=== PATIENT | female | born 1945 | race Caucasian/White ===

== ENCOUNTER 2023-03-17 14:11 | Outpatient (OUT) | payer MEDICARE, SELFPAY ==
[2023-03-17 14:33] LABS: Bilirubin Urine NEGATIVE (NEGATIVE); Blood Urine NEGATIVE (NEGATIVE); Clarity Urine CLEAR (CLEAR); Color Urine LT. YELLOW (YELLOW); Glucose Urine UA NEGATIVE (NEGATIVE); Ketones Urine NEGATIVE (NEGATIVE); Leukocyte Esterase Urine NEGATIVE (NEGATIVE); Nitrite Urine NEGATIVE (NEGATIVE); Protein Urine NEGATIVE (NEG/TRACE); Urobilinogen Urine 0.2 EU/dL (0.2-1.0); pH Urine 5.5 (5.0-9.0)
[2023-03-17 14:46] LABS: Bacteria Urine NONE SEEN #/HPF (NONE SEEN); Cast Seen? NONE SEEN #/LPF (NONE SEEN); Crystals Seen? None Seen #/HPF (None Seen); Mucus Urine NONE SEEN (NONE SEEN); RBC Urine NONE SEEN #/HPF (0-2); Squamous Epithelial Cell Urine FEW #/LPF (NONE/RARE); WBC Urine NONE SEEN #/HPF (NONE SEEN)
[2023-03-17 14:47] LABS: Urine Culture Indicated ALREADY ORDERED
== END 2023-03-17 14:12 | disposition home or self-care (01) ==
LOC: LAB 14:15
PROVIDERS: PCP Family Medicine; Visit Provider Family Medicine
DX: N32.89 Other specified disorders of bladder (principal)
CPT/HCPCS: 81001; 87086; 87150; 87186

== ENCOUNTER 2023-11-01 12:49 | Outpatient (RCR) | payer MEDICARE, SELFPAY | END 2023-11-24 12:58 | disposition home or self-care (01) | LOC: PT 12:49 | PROVIDERS: PCP Family Medicine; Visit Provider Family Medicine | DX: M53.86 Other specified dorsopathies, lumbar region (principal); R29.3 Abnormal posture; R26.89 Other abnormalities of gait and mobility; R26.9 Unspecified abnormalities of gait and mobility | CPT/HCPCS: 97110; 97161 ==

== ENCOUNTER 2024-01-02 06:17 | Observation (INO) | payer MEDICARE, SELFPAY ==
[2024-01-02] VITALS (63 sets, daily range): BP systolic 93–145; BP diastolic 39–72; PULSE 88–108; TEMP 36.6–37.4; O2SAT 92–100; BMI 25.4; BMI 28.0
--- NOTE | 2024-01-02 06:26 | PC.NURSE ---
Pt presents to ER for general weakness Pt states she has been feeling weak for several days and getting whoozy On arrival pt is slightly tachycardic, hypotensive, and pale Pt states she was told recently that she is anemic Pt states until yesterday she had been eating and drinking well but yesterday didn't have as much of an appetite Pt denies urinary symptoms When asked about her bowel movements pt states she was constipated yesterday and when asked if she has had black tarry stool she replied yes Pt denies any and all pain, none experienced with abdominal palpations Pt states she often gets hot and cold, and has a slight cough Pt presents with a 20g in the left AC from EMS and a bag of normal saline running Pt placed in a gown and on the hospital monitor, her family brought back to the room
[2024-01-02 07:27] LABS: INR 1.02; Prothrombin Time 10.8 sec (9.0-11.6)
[2024-01-02 07:29] LABS: Mean Corpuscular Hemoglobin 18.4 pg (26.7-34.0); Mean Corpuscular Volume 65.9 fL (81.0-99.0); Mean Platelet Volume 7.9 fL (9.5-13.5); Platelet Count 438 10^3/uL (150-450); Red Blood Count 1.79 10^6/uL (4.20-5.40); White Blood Count 8.4 10^3/uL (4.0-11.0)
[2024-01-02 07:31] LABS: Alanine Aminotransferase 20 U/L (14-59); Albumin Globulin Ratio 0.9; Albumin Level 2.8 g/dL (3.4-5.0); Alkaline Phosphatase 58 U/L (46-116); Anion Gap 16.2; Aspartate Amino Transferase 14 U/L (15-37); BUN Creatinine Ratio 54.9; Bilirubin Total 0.2 mg/dL (0.2-1.0); Calcium 8.2 mg/dL (8.5-10.1); Carbon Dioxide 21.3 mmol/L (21.0-32.0); Chloride 101 mmol/L (98-107); Estimated GFR (African America >60 (>=60); Estimated GFR (Non-African Ame 59 (>=60); Glucose 119 mg/dL (74-106); Potassium 4.5 mmol/L (3.5-5.1); Sodium 134 mmol/L (136-145); Total Protein 5.8 g/dL (6.4-8.2)
[2024-01-02 07:31] LABS: Hematocrit 11.8 % (36.0-48.0); Hemoglobin 3.3 g/dL (12.0-16.0); Troponin I High Sensitivity 7.3 pg/mL (4.0-51.3)
[2024-01-02 07:48] LABS: Red Cell Distribution Width 15.2 % (11.0-15.0)
[2024-01-02 07:53] LABS: Anisocytosis 2+; Band Neutrophils Absolute 0.1 10^3/uL (0.0-0.3); Hypochromasia 2+; Lymphocytes Absolute Manual 1.34 10^3/uL (1.20-3.80); Microcytosis 2+; Monocytes Absolute Manual 0.16 10^3/uL (0.30-0.80); Poikilocytosis 1+
[2024-01-02 07:54] LABS: Ovalocytes 1+
--- NOTE | 2024-01-02 08:16 | P.HP_ITS ---
HPI H&P: HPI History of Present Illness Chief complaint: weakness Narrative: Patient was seen and evaluated in the emergency room with increasing weakness. In the emergency room she was found to have a hemoglobin of 3.3. Patient does admit to increased Motrin use lately. Her other main anti-inflammatory medication, Mobic, was ineffective. Does note some black stools over the last couple days. No hematemesis no bright red blood. No abdominal pain. When I saw patient in the emergency room, she was resting comfortably, her blood pressure is improved after IV fluids. She will be transferred to the medical surgical floor for further testing and transfusions Opioid HPI Opioid Management Most Recent Opioid Data: Last Pain Scale 4 01/02/24 11:00 Last Pain Assessment 01/02/24 11:00 Last MAR Pain Assessment 01/02/24 09:23 Last ORT Total Score 0 01/02/24 09:54 Last ORT Risk Category Low Risk 01/02/24 09:54 Review of Systems ROS Status of ROS 10 or more systems reviewed and unremark able except as noted in history and below PFSH PFSH Medical History (Updated 01/02/24 @ 11:34 by Marizol Mcgovern) Chronic pain ?G89.29 - Other chronic pain (ICD-10) Blood transfusion during current hospitalisation Weakness generalized ?R53.1 - Weakness (ICD-10) Hx of fracture of hip ?Z87.81 - Personal history of (healed) traumatic fracture (ICD-10) Surgical History (Updated 01/02/24 @ 11:33 by Marizol Mcgovern) History of total right knee replacement ?Z96.651 - Presence of right artificial knee joint (ICD-10) H/O repair of rotator cuff ?Z98.890 - Other specified postprocedural states (ICD-10) Social History Highest level of school completed/degree received: some college, no degree Meds Home Medications and Allergies Home Medications ?Medication ?Instructions ?Recorded ?Confirmed ?Type levothyroxine 88 mcg tablet 88 mcg PO .qd 01/02/24 01/02/24 History liothyronine 5 mcg tablet 5 mcg PO .qd 01/02/24 01/02/24 History meloxicam 15 mg tablet 15 mg PO .qd 01/02/24 01/02/24 History ropinirole 1 mg tablet 1 mg PO .qhs 01/02/24 01/02/24 History Allergies Allergy/AdvReac Type Severity Reaction Status Date / Time amoxicillin Allergy Verified 01/02/24 06:23 nickel Allergy Verified 01/02/24 06:23 Sulfa (Sulfonamide Allergy Verified 01/02/24 06:23 Antibiotics) Exam Constitutional Vital Signs, click to edit/add: Last Vital Signs Temp 98.1 F 01/02/24 08:11 Pulse 97 H 01/02/24 08:11 Resp 20 01/02/24 08:11 BP 110/55 01/02/24 08:11 Pulse Ox 99 01/02/24 07:10 O2 Del Method Room Air 01/02/24 06:18 Documenting provider has reviewed patient's vital signs: yes Common normals: no apparent distress Chest Common normals: inspection of chest normal and palpation of chest normal Respiratory Common normals: normal respiratory effort, no retractions and clear to auscultation bilaterally Cardio Common normals: regular rate and regular rhythm GI Common normals: Normal to inspection, nondistended, normoactive bowel sounds present, soft to palpation, non-tender and no masses Extremity Common normals: normal to inspection and full ROM Results Labs Labs: Short CBC 01/02/24 Range/Units 06:52 WBC 8.4 (4.0-11.0) 10^3/uL Hgb 3.3 L* (12.0-16.0) g/dL Hct 11.8 L* (36.0-48.0) % Plt Count 438 (150-450) 10^3/uL BMP 01/02/24 07:05 Sodium 134 L Potassium 4.5 Chloride 101 Carbon Dioxide 21.3 BUN 50.0 H Creatinine 0.91 Glucose 119 H Calcium 8.2 L Liver Function 01/02/24 Range/Units 07:05 Total Bilirubin 0.2 (0.2-1.0) mg/dL AST 14 L (15-37) U/L ALT 20 (14-59) U/L Alkaline Phosphatase 58 (46-116) U/L Albumin 2.8 L (3.4-5.0) g/dL Assessment and Plan Assessment and Plan (1) Acute gastrointestinal bleeding: Plan Hypotension, severe anemia with a hemoglobin of 3.3 secondary to acute upper gastrointestinal bleeding which is resulted in acute upper gastrointestinal blood loss anemia. Will transfuse 2 units. Likely needs 2 additional 1, she is O+. Start patient on IV Protonix twice daily. If unable to control bleeding may need EGD. Since stabilized and blood pressures improved hopefully will not need that with this admission. Generalized arthralgias-needs to stay off of NSAIDs Hypothyroidism-maintain current medications Restless leg syndrome-maintain current medications Start patient off is observational status, if her hemoglobin improved she could be discharged to home in less than 2 midnights. If she does require additional transfusions, will change patient to inpatient status as her medically necessary treatment will span 2 midnights
--- NOTE | 2024-01-02 08:17 | ED_ITS ---
HPI - Weakness General Chief complaint: Weakness Stated complaint: weakness Time Seen by Provider: 01/02/24 06:40 Source: patient and family Mode of arrival: ambulance Limitations: no limitations History of Present Illness HPI Narrative: This patient is here complaining of weakness fatigue lack of energy and a little shortness of breath with exertion. She is notices gotten much worse over the last several days. She also notes that her bowel movements have been black and tarry looking for the last several days as well. By history she has been using NSAIDs for what she says is many years. She is actually increased her use of NSAID use recently because increasing symptoms in her back and hip. She had upper and lower endoscopy many years ago she says she never had a stomach ulcer. She is known to have diverticular disease. She has not passed any blood clots or fresh blood. She denies any history of heart disease or heart attack. She has not had any chest pain. Some shortness of breath with exertion as noted. Remarkably, she has not had any abdominal pain or discomfort Related Data Home Medications ?Medication ?Instructions ?Recorded ?Confirmed levothyroxine 88 mcg tablet mcg 01/02/24 liothyronine 5 mcg tablet mcg 01/02/24 meloxicam 15 mg tablet mg 01/02/24 ropinirole 0.5 mg tablet mg 01/02/24 Allergies Allergy/AdvReac Type Severity Reaction Status Date / Time amoxicillin Allergy Verified 01/02/24 06:23 nickel Allergy Verified 01/02/24 06:23 Sulfa (Sulfonamide Allergy Verified 01/02/24 06:23 Antibiotics) Exam Narrative Exam Narrative: She was seen on arrival by the previous physician with laboratory testing ordered. An IV was established. She did have a little bit of lower blood pressure and responded very nicely to crystalloid. She is immediately typed and crossed for several units of blood because of profound clinical evidence of anemia on her overall exam. She is awake alert [place] x 3 denies any symptoms at this time. However her skin is quite pale conjunctiva are pale there is no scleral icterus. She does not have any respiratory distress and her pulse oximetry 99% with a normal respiratory rate. Her EKG shows sinus rhythm borderline tachycardia rate with 100. She does not have any chest discomfort. Her extremities show profound anemia. They are warm to are not cold she is not clammy or shocky or diaphoretic. Cognition mentation and mental status are completely normal. Constitutional Vital Signs, click to edit/add: Last Vital Signs Temp 98.1 F 01/02/24 08:11 Pulse 97 H 01/02/24 08:11 Resp 20 01/02/24 08:11 BP 110/55 01/02/24 08:11 Pulse Ox 99 01/02/24 07:10 O2 Del Method Room Air 01/02/24 06:18 Course Vital Signs Vital signs: Vital Signs Temperature 97.8 F 01/02/24 06:18 Pulse Rate 101 H 01/02/24 06:18 Respiratory Rate 18 01/02/24 06:18 Blood Pressure 93/40 L 01/02/24 06:18 Pulse Oximetry 100 01/02/24 06:18 Oxygen Delivery Method Room Air 01/02/24 06:18 Temperature 98.1 F 01/02/24 08:11 Pulse Rate 97 H 01/02/24 08:11 Respiratory Rate 20 01/02/24 08:11 Blood Pressure 110/55 01/02/24 08:11 Pulse Oximetry 99 01/02/24 07:10 Oxygen Delivery Method Room Air 01/02/24 06:18 MDM - Weakness MDM Narrative Medical decision making narrative: This patient has profound anemia with hemoglobin 3.3. Her platelets are adequate. BUN shows probable confirmation upper GI bleed. Creatinine is stable. Mild abnormalities of liver function testing. She was given crystalloid and her blood pressure responded very nicely. Her her twelve-lead EKG does not show any evidence of ischemia. She was typed and screened on initial observation here and later ordered 2 units of blood and were able to start her transfusions at approximately 8:20 AM. The case was discussed with her primary care doctor and he did like her admitted. Lab Data Labs: Lab Results 01/02/24 01/02/24 Range/Units 06:52 07:05 WBC 8.4 (4.0-11.0) 10^3/uL RBC 1.79 L (4.20-5.40) 10^6/uL Hgb 3.3 L* (12.0-16.0) g/dL Hct 11.8 L* (36.0-48.0) % MCV 65.9 L (81.0-99.0) fL MCH 18.4 L (26.7-34.0) pg MCHC 28.0 L (29.9-35.2) g/dL RDW 15.2 H (11.0-15.0) % Plt Count 438 (150-450) 10^3/uL MPV 7.9 L (9.5-13.5) fL Seg Neuts % (Manual) 81.0 Band Neutrophils % 1.0 (0-5) % Lymphocytes % (Manual) 16.0 L (20.5-60.0) % Monocytes % (Manual) 2.0 (1.7-12.0) % Eosinophils % (Manual) 0.0 L (0.9-7.0) % Basophils % (Manual) 0.0 L (0.2-2.0) % Neutrophils # (Manual) 6.80 H (1.4-6.5) 10^3/uL Band Neutrophils # 0.1 (0.0-0.3) 10^3/uL Lymphocytes # (Manual) 1.34 (1.20-3.80) 10^3/uL Monocytes # (Manual) 0.16 L (0.30-0.80) 10^3/uL Eosinophils # (Manual) 0.00 (0.00-0.70) 10^3/uL Basophils # (Manual) 0.00 (0.00-0.10) 10^3/uL Hypochromasia 2+ Poikilocytosis 1+ Anisocytosis 2+ Microcytosis 2+ Ovalocytes 1+ PT 10.8 (9.0-11.6) sec INR 1.02 Sodium 134 L (136-145) mmol/L Potassium 4.5 (3.5-5.1) mmol/L Chloride 101 (98-107) mmol/L Carbon Dioxide 21.3 (21.0-32.0) mmol/L Anion Gap 16.2 BUN 50.0 H (7.0-18.0) mg/dL Creatinine 0.91 (0.55-1.02) mg/dL Est GFR ( Amer) >60 (>=60) Est GFR (Non-Af Amer) 59 L (>=60) BUN/Creatinine Ratio 54.9 Glucose 119 H (74-106) mg/dL Calcium 8.2 L (8.5-10.1) mg/dL Total Bilirubin 0.2 (0.2-1.0) mg/dL AST 14 L (15-37) U/L ALT 20 (14-59) U/L Alkaline Phosphatase 58 (46-116) U/L Troponin I High Sens 7.3 (4.0-51.3) pg/mL Total Protein 5.8 L (6.4-8.2) g/dL Albumin 2.8 L (3.4-5.0) g/dL Globulin 3.0 g/dL Albumin/Globulin Ratio 0.9 Blood Type O Positive Antibody Screen Negative Crossmatch See Detail Discharge Plan Discharge Chief Complaint: Weakness Clinical Impression: Acute gastrointestinal bleeding Patient Disposition: Admitted as Observation Time of Disposition Decision: 08:21 Prescriptions / Home Meds: No Action meloxicam 15 mg tablet liothyronine 5 mcg tablet levothyroxine 88 mcg tablet ropinirole 0.5 mg tablet Print Language: Irish Referrals: Nash Marcial MD [Primary Care Provider] - 1 week
[2024-01-02] MEDS: 0.9 % SODIUM CHLORIDE 1,000 ML 75 ML IV (08:20)
[2024-01-02] MEDS: ONDANSETRON PF 4 MG/2 ML VIAL IV (09:03)
[2024-01-02] MEDS: PANTOPRAZOLE SODIUM 40 MG VIAL IV ×2 (09:03→21:15)
[2024-01-02] MEDS: ACETAMINOPHEN 500 MG TABLET 1000 MG PO (09:23)
[2024-01-02] MEDS: LACTOSE -REDUCED (ENSURE ORIGINAL 237 ML LIQUID) PO ×2 (12:32→21:15)
[2024-01-02] MEDS: BENZONATATE 100 MG CAPSULE 200 MG PO (12:36)
--- NOTE | 2024-01-02 14:18 | SWNOTE1 ---
SW met with pt and pt's in room. Pt was getting her second unit of blood. She voiced she has felt better, but getting there. Pt does have a walker and cane at home if needed. Pt does not have any home health at this time. Pt voices she has no needs in regards to discharge. SW to follow as needed. Medicare Outpatient Observation Notice reviewed and discussed with patient. Pt. verbalized understanding and signed the form. Original given to patient and copy placed in patient?s chart.
[2024-01-02 14:26] LABS: Basophils Percent Auto 0.1 % (0.2-2.0); Immature Granulocytes Abs Auto 0.16 10^3/uL (0.00-0.03); Immature Granulocytes Pct Auto 1.1 % (0.0-0.5); Lymphocytes Absolute Auto 1.2 10^3/uL (1.2-3.8); Lymphocytes Percent Auto 8.1 % (20.5-60.0); Mean Corpuscular HGB Conc 31.3 g/dL (29.9-35.2); Mean Corpuscular Hemoglobin 23.2 pg (26.7-34.0); Mean Corpuscular Volume 74.2 fL (81.0-99.0); Mean Platelet Volume 8.4 fL (9.5-13.5); Monocytes Absolute Auto 2.4 10^3/uL (0.3-0.8); Neutrophils Percent Auto 74.7 % (43.0-75.0); Platelet Count 294 10^3/uL (150-450); Red Blood Count 2.71 10^6/uL (4.20-5.40); Red Cell Distribution Width 20.4 % (11.0-15.0); White Blood Count 14.7 10^3/uL (4.0-11.0)
[2024-01-02 14:30] LABS: Hematocrit 20.1 % (36.0-48.0); Hemoglobin 6.3 g/dL (12.0-16.0)
[2024-01-02] MEDS: LIDOCAINE 5% PATCH 1 PATCH TOPICAL (14:36)
[2024-01-02] MEDS: TRAMADOL HCL 50 MG TABLET PO ×2 (14:36→21:15)
--- NOTE | 2024-01-02 14:48 | ECG_ITS ---
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
[2024-01-02 18:57] LABS: Basophils Percent Auto 0.2 % (0.2-2.0); Hemoglobin 7.7 g/dL (12.0-16.0); Immature Granulocytes Abs Auto 0.14 10^3/uL (0.00-0.03); Immature Granulocytes Pct Auto 0.9 % (0.0-0.5); Lymphocytes Absolute Auto 1.8 10^3/uL (1.2-3.8); Lymphocytes Percent Auto 11.9 % (20.5-60.0); Mean Corpuscular HGB Conc 32.5 g/dL (29.9-35.2); Mean Corpuscular Hemoglobin 24.8 pg (26.7-34.0); Mean Corpuscular Volume 76.5 fL (81.0-99.0); Mean Platelet Volume 8.8 fL (9.5-13.5); Monocytes Absolute Auto 2.5 10^3/uL (0.3-0.8); Monocytes Percent Auto 16.7 % (1.7-12.0); Neutrophils Absolute Auto 10.5 10^3/uL (1.4-6.5); Neutrophils Percent Auto 70.3 % (43.0-75.0); Platelet Count 289 10^3/uL (150-450); Red Cell Distribution Width 20.2 % (11.0-15.0); White Blood Count 14.9 10^3/uL (4.0-11.0)
[2024-01-02 19:00] LABS: Hematocrit 23.7 % (36.0-48.0)
[2024-01-02] MEDS: ROPINIROLE HCL 1 MG TABLET PO (21:16)
[2024-01-03] VITALS (14 sets, daily range): BP systolic 113–127; BP diastolic 62–66; PULSE 72–103; TEMP 36.4–37.1; O2SAT 92–96
[2024-01-03 04:52] LABS: Basophils Percent Auto 0.2 % (0.2-2.0); Eosinophils Percent Auto 0.1 % (0.9-7.0); Immature Granulocytes Abs Auto 0.24 10^3/uL (0.00-0.03); Immature Granulocytes Pct Auto 1.9 % (0.0-0.5); Lymphocytes Absolute Auto 1.4 10^3/uL (1.2-3.8); Mean Corpuscular HGB Conc 32.4 g/dL (29.9-35.2); Mean Corpuscular Hemoglobin 24.7 pg (26.7-34.0); Mean Corpuscular Volume 76.4 fL (81.0-99.0); Mean Platelet Volume 8.7 fL (9.5-13.5); Monocytes Percent Auto 15.6 % (1.7-12.0); Neutrophils Absolute Auto 9.1 10^3/uL (1.4-6.5); Neutrophils Percent Auto 71.2 % (43.0-75.0); Platelet Count 235 10^3/uL (150-450); Red Blood Count 2.75 10^6/uL (4.20-5.40); Red Cell Distribution Width 19.8 % (11.0-15.0); White Blood Count 12.8 10^3/uL (4.0-11.0)
[2024-01-03 05:01] LABS: Hemoglobin 6.8 g/dL (12.0-16.0)
[2024-01-03 05:12] LABS: Alanine Aminotransferase 18 U/L (14-59); Albumin Globulin Ratio 0.9; Albumin Level 2.7 g/dL (3.4-5.0); Alkaline Phosphatase 56 U/L (46-116); Anion Gap 11.4; Aspartate Amino Transferase 16 U/L (15-37); BUN Creatinine Ratio 45.2; Bilirubin Total 0.9 mg/dL (0.2-1.0); Calcium 8.2 mg/dL (8.5-10.1); Carbon Dioxide 22.9 mmol/L (21.0-32.0); Chloride 106 mmol/L (98-107); Estimated GFR (African America >60 (>=60); Estimated GFR (Non-African Ame >60 (>=60); Glucose 114 mg/dL (74-106); Potassium 4.3 mmol/L (3.5-5.1); Sodium 136 mmol/L (136-145); Total Protein 5.7 g/dL (6.4-8.2)
[2024-01-03] MEDS: 0.9 % SODIUM CHLORIDE 1,000 ML 75 ML IV (05:50)
[2024-01-03] MEDS: LEVOTHYROXINE SODIUM 88 MCG TABLET PO (05:50)
--- NOTE | 2024-01-03 08:03 | P.DS_ITS ---
DS: Providers Provider Date of admission: 01/02/24 09:32 Primary care physician: Nash Marcial MD Consults: 01/02/24 08:12 Consult to Pharmacy Routine Consulting Provider: Reason for consultation: Please [place] me when Med Rec is Updated Has provider been notified: No Occupational Therapy Eval and Treat Routine Reason for consultation: Only if needed for Rehab Has provider been notified: No Physical Therapy Eval and Treat Routine Reason for consultation: Eval and Treat Has provider been notified: No DS: Diagnosis Discharge Diagnosis (1) Acute gastrointestinal bleeding: Plan Hypotension, severe anemia with a hemoglobin of 3.3 secondary to acute upper gastrointestinal bleeding which is resulted in acute upper gastrointestinal blood loss anemia. Will transfuse 2 units. Likely needs 2 additional 1, she is O+. Start patient on IV Protonix twice daily. If unable to control bleeding may need EGD. Since stabilized and blood pressures improved hopefully will not need that with this admission. Generalized arthralgias-needs to stay off of NSAIDs Hypothyroidism-maintain current medications Restless leg syndrome-maintain current medications Start patient off is observational status, if her hemoglobin improved she could be discharged to home in less than 2 midnights. If she does require additional transfusions, will change patient to inpatient status as her medically necessary treatment will span 2 midnights ? DS: Summary Hospital Course Hospital Course: Patient was seen and evaluated in the emergency room with increasing weakness. No chest pain, not really short of breath just generalized weakness. In ER found to have a hemoglobin of 3.3. She did admit to some dark stools. She has been taking meloxicam when that was not working she added ibuprofen to that. Patient was admitted for acute upper gastrointestinal bleeding with acute upper gastrointestinal blood loss anemia. Started on IV Protonix. She was hypotensive in the emergency room given IV fluids with improvement. Once transfusions were started and blood pressure also resumed to normal. He was initially given 2 units of PRBCs. Her hemoglobin was still low at 6 she was given an additional which put it up over 7. Overnight her hemoglobin did trickle back down to 6.8 but this is still within range went from 3.3-6.8 with 3 units. She was given 1 additional unit this morning. Rechecking her hemoglobin later this morning, if over 7-1/2 history discharged home in improving con dition. Medications see list. Follow-up with me in the office later this week or next and we will set up for EGD at that time. Time Spent with Patient Time attestation: Total time spent providing and/or coordinating discharge services: Exam Constitutional Vital Signs, click to edit/add: Last Vital Signs Temp 98.4 F 01/03/24 06:27 Pulse 75 01/03/24 06:57 Resp 18 01/03/24 06:27 BP 114/66 01/03/24 06:27 Pulse Ox 93 L 01/03/24 06:27 O2 Del Method Room Air 01/03/24 06:27 Documenting provider has reviewed patient's vital signs: yes Common normals: no apparent distress Chest Common normals: inspection of chest normal and palpation of chest normal Respiratory Common normals: normal respiratory effort, no retractions and clear to auscultation bilaterally Cardio Common normals: regular rate and regular rhythm GI Common normals: Normal to inspection, nondistended, normoactive bowel sounds present, soft to palpation, non-tender and no masses Extremity Common normals: normal to inspection and full ROM DS: Data Data Completed and Pending Labs on day of discharge: Labs from last 24 hours 01/03/24 01/02/24 01/02/24 04:10 18:43 14:17 WBC 12.8 H 14.9 H 14.7 H RBC 2.75 L 3.10 L 2.71 L Hgb 6.8 L* 7.7 L 6.3 L* D Hct 21.0 L* 23.7 L* 20.1 L* MCV 76.4 L 76.5 L 74.2 L MCH 24.7 L 24.8 L 23.2 L MCHC 32.4 32.5 31.3 RDW 19.8 H 20.2 H 20.4 H Plt Count 235 289 294 MPV 8.7 L 8.8 L 8.4 L Neut % (Auto) 71.2 70.3 74.7 Lymph % (Auto) 11.0 L 11.9 L 8.1 L [place] % (Auto) 15.6 H 16.7 H 16.0 H Eos % (Auto) 0.1 L 0.0 L 0.0 L Baso % (Auto) 0.2 0.2 0.1 L Neut # (Auto) 9.1 H 10.5 H 11.0 H Lymph # (Auto) 1.4 1.8 1.2 [place] # (Auto) 2.0 H 2.5 H 2.4 H Eos # (Auto) 0.0 0.0 0.0 Baso # (Auto) 0.0 0.0 0.0 Abs Immat Gran (auto) 0.24 H 0.14 H 0.16 H Imm/Tot Granulo (auto) 1.9 H 0.9 H 1.1 H Sodium 136 Potassium 4.3 Chloride 106 Carbon Dioxide 22.9 Anion Gap 11.4 BUN 28.0 H Creatinine 0.62 Est GFR ( Amer) >60 Est GFR (Non-Af Amer) >60 BUN/Creatinine Ratio 45.2 Glucose 114 H Calcium 8.2 L Total Bilirubin 0.9 AST 16 ALT 18 Alkaline Phosphatase 56 Total Protein 5.7 L Albumin 2.7 L Globulin 3.0 Albumin/Globulin Ratio 0.9 Blood Type Antibody Screen Crossmatch 01/02/24 07:05 WBC RBC Hgb Hct MCV MCH MCHC RDW Plt Count MPV Neut % (Auto) Lymph % (Auto) [place] % (Auto) Eos % (Auto) Baso % (Auto) Neut # (Auto) Lymph # (Auto) [place] # (Auto) Eos # (Auto) Baso # (Auto) Abs Immat Gran (auto) Imm/Tot Granulo (auto) Sodium Potassium Chloride Carbon Dioxide Anion Gap BUN Creatinine Est GFR ( Amer) Est GFR (Non-Af Amer) BUN/Creatinine Ratio Glucose Calcium Total Bilirubin AST ALT Alkaline Phosphatase Total Protein Albumin Globulin Albumin/Globulin Ratio Blood Type O Positive Antibody Screen Negative Crossmatch See Detail Discharge Plan Discharge Disposition: Home, Self-Care Discharge Medications: New tramadol 50 mg Tablet 50 mg PO Q6H PRN (Reason: Pain) Qty: 28 0RF pantoprazole [Protonix] 40 mg tablet,delayed release (DR/EC) 40 mg PO DAILY Qty: 30 11RF Continued liothyronine 5 mcg tablet 5 mcg PO .qd levothyroxine 88 mcg tablet 88 mcg PO .qd ropinirole 1 mg tablet 1 mg PO .qhs Patient Comments: 1-3 hours before bedtime daily Discontinued meloxicam 15 mg tablet 15 mg PO .qd Print Language: Kyrgyz Patient Instructions: Pantoprazole (By mouth), Gastrointestinal Bleeding (GEN), Blood Transfusion Reactions (DC), Safe Use of NSAIDs (DC) Forms: Portal Instructions Follow Up Appointments: January 08 @ 11am with Dr. Marcial [phone] Discharge Date/Time: 01/03/24 13:41
[2024-01-03] MEDS: LACTOSE -REDUCED (ENSURE ORIGINAL 237 ML LIQUID) PO (09:14)
[2024-01-03] MEDS: LIDOCAINE 5% PATCH 1 PATCH TOPICAL (09:14)
[2024-01-03] MEDS: PANTOPRAZOLE SODIUM 40 MG VIAL IV (09:14)
--- NOTE | 2024-01-03 10:37 | PC.NURSE ---
Spoke with pt about when discharging home she will need to avoid NSAIDS. Also educated pt on signs and symptooms to look out for and if she starts to feel worse to come back to the ER. Pt voiced understanding .
[2024-01-03 11:21] LABS: Hematocrit 28.3 % (36.0-48.0); Mean Corpuscular HGB Conc 31.8 g/dL (29.9-35.2); Mean Corpuscular Hemoglobin 24.9 pg (26.7-34.0); Mean Corpuscular Volume 78.4 fL (81.0-99.0); Mean Platelet Volume 8.5 fL (9.5-13.5); Platelet Count 261 10^3/uL (150-450); Red Blood Count 3.61 10^6/uL (4.20-5.40); Red Cell Distribution Width 19.6 % (11.0-15.0); White Blood Count 15.3 10^3/uL (4.0-11.0)
[2024-01-03] MEDS: LIOTHYRONINE SODIUM 5 MCG TABLET PO (11:23)
[2024-01-03 11:38] LABS: Bilirubin Urine NEGATIVE (NEGATIVE); Blood Urine NEGATIVE (NEGATIVE); Clarity Urine CLEAR (CLEAR); Color Urine YELLOW (YELLOW); Glucose Urine UA NEGATIVE (NEGATIVE); Ketones Urine NEGATIVE (NEGATIVE); Leukocyte Esterase Urine NEGATIVE (NEGATIVE); Nitrite Urine NEGATIVE (NEGATIVE); Protein Urine NEGATIVE (NEG/TRACE); Specific Gravity Urine >=1.030 (1.005-1.025); Urobilinogen Urine 0.2 EU/dL (0.2-1.0)
[2024-01-03 11:57] LABS: Bacteria Urine TRACE #/HPF (NONE SEEN); Cast Seen? NONE SEEN #/LPF (NONE SEEN); Crystals Seen? None Seen #/HPF (None Seen); Mucus Urine NONE SEEN (NONE SEEN); RBC Urine 0-2 #/HPF (0-2); Squamous Epithelial Cell Urine FEW #/LPF (NONE/RARE); WBC Urine NONE SEEN #/HPF (NONE SEEN)
--- NOTE | 2024-01-03 12:24 | PT.DAILY ---
Physical Therapy Daily Note PT Daily Note/Assess Start: 01/03/24 12:22 Freq: Status: Active Protocol: Document 01/03/24 12:22 KATIE (Rec: 01/03/24 12:24 KATIE [id number]) Physical Therapy Daily Note/Assessment Time In/Time Out Time In 11:04 Time Out 11:15 Pain In Pain N/A Pain Out Pain N/A Subjective Subjective Pt using toilet upon arrival. reports she amb into restroom herself using IV pole. Therapeutic Exercise Time Therapeutic Exercise Minutes (minutes) 3 Therapeutic Exercise Units 0 Therapeutic Activity Time Therapeutic Activity Minutes (minutes) 5 Therapeutic Activity Units 1 Therapeutic Activity Treatment Bed Mobility Ability Modified Independent Chair Transfer Ability Modified Independent Therapeutic Activity Comments Toilet transfer Phyllis with Iv lines. pt amb with IV pole 200 ' in halls without LOB or SOB just min LE fatigue. Pt sits EOB unsupported to complete bilat LE strengthening ex 10x ea. Pt transfers from sit> supine Phyllis with IV lines. remains supine with call light in reach and needs met. Total Physical Therapy Time Total Therapy Minutes 8 Total Physical Therapy Units 1 Summary Daily Note Summary Steady with gait and transfers . Improved gait endurance using IV pole for stability. Planned dc from IP PT.
--- NOTE | 2024-01-04 14:51 | CM.DCFOLLOWU ---
Person spoke with: Qing How are you feeling? pretty good. How is your pain? No complaints Did you understand your discharge instructions? I sure did Do you have any questions about your discharge instructions? no questions Were you given any prescriptions at discharge? yes Were you able to get your prescriptions filled? yes Do you understand how to take your medications as ordered? I do Do you have any questions about your follow up appointment and do you plan to keep your follow up appointment? Yes, next Monday-January 08 @ 1100 Is there anything else that you would like to discuss? no. Thank you for checking on me. Questions/Comments/Concerns/Other:
== END 2024-01-03 13:41 | disposition home or self-care (01) ==
LOC: ER 08:21 → MS 09:38
PROVIDERS: Internal Medicine; Admitting Provider Family Medicine; Emergency Provider Emergency Medicine Emergency Medical Services; PCP Family Medicine; Visit Provider Family Medicine
DX: D62 Acute posthemorrhagic anemia (principal); I95.9 Hypotension, unspecified; M25.50 Pain in unspecified joint; E03.9 Hypothyroidism, unspecified; K57.31 Diverticulosis of large intestine without perforation or abscess with bleeding; G25.81 Restless legs syndrome; Z96.651 Presence of right artificial knee joint; Z98.890 Other specified postprocedural states; Z79.899 Other long term (current) drug therapy; Z79.890 Hormone replacement therapy
CPT/HCPCS: 36415; 36430; 80048; 80053; 81001; 84484; 85007; 85025; 85027; 85610; 86850; 86900; 86901; 87086; 93005; 94761; 96374; 96375; 96376; 97161; 97165; 97530; 97535; 99285; G0378; P9016

== ENCOUNTER 2024-01-09 12:00 | Outpatient (OUT) | payer MEDICARE, SELFPAY ==
[2024-01-09 13:07] LABS: Alanine Aminotransferase 18 U/L (14-59); Albumin Globulin Ratio 0.9; Albumin Level 3.4 g/dL (3.4-5.0); Alkaline Phosphatase 92 U/L (46-116); Anion Gap 16.3; Aspartate Amino Transferase 19 U/L (15-37); BUN Creatinine Ratio 17.6; Bilirubin Total 0.4 mg/dL (0.2-1.0); Calcium 9.1 mg/dL (8.5-10.1); Carbon Dioxide 23.7 mmol/L (21.0-32.0); Chloride 104 mmol/L (98-107); Estimated GFR (African America >60 (>=60); Estimated GFR (Non-African Ame >60 (>=60); Globulin 3.7 g/dL; Glucose 90 mg/dL (74-106); Sodium 140 mmol/L (136-145); Total Protein 7.1 g/dL (6.4-8.2)
[2024-01-09 13:13] LABS: Basophils Percent Auto 0.4 % (0.2-2.0); Eosinophils Percent Auto 0.1 % (0.9-7.0); Hematocrit 31.4 % (36.0-48.0); Hemoglobin 9.3 g/dL (12.0-16.0); Immature Granulocytes Abs Auto 0.03 10^3/uL (0.00-0.03); Immature Granulocytes Pct Auto 0.4 % (0.0-0.5); Lymphocytes Percent Auto 14.6 % (20.5-60.0); Mean Corpuscular HGB Conc 29.6 g/dL (29.9-35.2); Mean Corpuscular Hemoglobin 24.9 pg (26.7-34.0); Mean Corpuscular Volume 84.2 fL (81.0-99.0); Mean Platelet Volume 9.1 fL (9.5-13.5); Monocytes Percent Auto 15.3 % (1.7-12.0); Neutrophils Absolute Auto 4.7 10^3/uL (1.4-6.5); Neutrophils Percent Auto 69.2 % (43.0-75.0); Platelet Count 249 10^3/uL (150-450); Red Blood Count 3.73 10^6/uL (4.20-5.40); Red Cell Distribution Width 24.2 % (11.0-15.0); White Blood Count 6.8 10^3/uL (4.0-11.0)
== END 2024-01-09 12:01 | disposition home or self-care (01) ==
LOC: LAB 12:01
PROVIDERS: PCP Family Medicine; Visit Provider Family Medicine
DX: D62 Acute posthemorrhagic anemia (principal)
CPT/HCPCS: 36415; 80053; 82728; 83540; 85025

== ENCOUNTER 2024-02-05 07:26 | Outpatient (RCR) | payer MEDICARE, SELFPAY ==
[2024-02-05 13:20] VITALS: BP 155/74; PULSE 96; TEMP 37; O2SAT 100
[2024-02-05] MEDS: IRON SUCROSE COMPLEX 300 MG in 0.9 % SODIUM CHLORIDE 250 ML 176.667000000000002 MG IV (13:23)
== END 2024-02-23 23:59 | disposition home or self-care (01) ==
LOC: INF 07:26
PROVIDERS: PCP Family Medicine; Visit Provider Family Medicine
DX: D50.9 Iron deficiency anemia, unspecified (principal)
CPT/HCPCS: 96365; J1756

== ENCOUNTER 2024-02-12 15:33 | Outpatient (OUT) | payer MEDICARE, SELFPAY ==
[2024-02-12 16:30] LABS: Basophils Percent Auto 0.5 % (0.2-2.0); Eosinophils Percent Auto 0.3 % (0.9-7.0); Hematocrit 35.3 % (36.0-48.0); Hemoglobin 10.4 g/dL (12.0-16.0); Immature Granulocytes Abs Auto 0.04 10^3/uL (0.00-0.03); Immature Granulocytes Pct Auto 0.5 % (0.0-0.5); Lymphocytes Absolute Auto 1.7 10^3/uL (1.2-3.8); Lymphocytes Percent Auto 22.1 % (20.5-60.0); Mean Corpuscular HGB Conc 29.5 g/dL (29.9-35.2); Mean Corpuscular Hemoglobin 24.1 pg (26.7-34.0); Mean Corpuscular Volume 81.9 fL (81.0-99.0); Mean Platelet Volume 8.6 fL (9.5-13.5); Monocytes Absolute Auto 0.9 10^3/uL (0.3-0.8); Monocytes Percent Auto 11.6 % (1.7-12.0); Platelet Count 338 10^3/uL (150-450); Red Blood Count 4.31 10^6/uL (4.20-5.40); Red Cell Distribution Width 22.7 % (11.0-15.0); White Blood Count 7.6 10^3/uL (4.0-11.0)
== END 2024-02-12 15:34 | disposition home or self-care (01) ==
PROVIDERS: PCP Family Medicine; Visit Provider Family Medicine
DX: E61.1 Iron deficiency (principal)
CPT/HCPCS: 36415; 83540; 85025

== ENCOUNTER 2024-03-04 07:33 | Outpatient (RCR) | payer MEDICARE, SELFPAY ==
[2024-03-04] MEDS: IRON SUCROSE COMPLEX 300 MG in 0.9 % SODIUM CHLORIDE 250 ML 176.667000000000002 MG IV (13:15)
[2024-03-04 13:18] VITALS: BP 151/73; PULSE 88; TEMP 37.1; O2SAT 98
== END 2024-03-04 15:09 | disposition home or self-care (01) ==
LOC: INF 07:33
PROVIDERS: PCP Family Medicine; Visit Provider Family Medicine
DX: D50.9 Iron deficiency anemia, unspecified (principal)
CPT/HCPCS: 96365; J1756

== ENCOUNTER 2024-03-12 14:23 | Outpatient (OUT) | payer MEDICARE, SELFPAY | END 2024-03-12 14:24 | disposition home or self-care (01) | LOC: LAB 14:26 | PROVIDERS: PCP Family Medicine; Visit Provider Family Medicine | DX: D62 Acute posthemorrhagic anemia (principal) | CPT/HCPCS: 36415; 83540 ==

== ENCOUNTER 2024-06-26 10:06 | Outpatient (OUT) | payer MEDICARE, SELFPAY ==
[2024-06-26 10:30] LABS: Basophils Percent Auto 0.2 % (0.2-2.0); Hematocrit 43.7 % (36.0-48.0); Hemoglobin 14.4 g/dL (12.0-16.0); Immature Granulocytes Abs Auto 0.02 10^3/uL (0.00-0.03); Immature Granulocytes Pct Auto 0.4 % (0.0-0.5); Lymphocytes Absolute Auto 1.3 10^3/uL (1.2-3.8); Lymphocytes Percent Auto 25.5 % (20.5-60.0); Mean Corpuscular Hemoglobin 29.7 pg (26.7-34.0); Mean Corpuscular Volume 90.1 fL (81.0-99.0); Mean Platelet Volume 8.6 fL (9.5-13.5); Monocytes Absolute Auto 0.6 10^3/uL (0.3-0.8); Monocytes Percent Auto 12.1 % (1.7-12.0); Neutrophils Absolute Auto 3.2 10^3/uL (1.4-6.5); Neutrophils Percent Auto 61.8 % (43.0-75.0); Platelet Count 275 10^3/uL (150-450); Red Blood Count 4.85 10^6/uL (4.20-5.40); White Blood Count 5.1 10^3/uL (4.0-11.0)
[2024-06-26 11:06] LABS: Estimated Average Glucose 108 mg/dL; Glycohemoglobin A1C 5.4 % (4.5-6.2)
[2024-06-26 12:53] LABS: Free T4 1.28 ng/dL (0.76-1.46)
[2024-06-26 12:57] LABS: Alanine Aminotransferase 30 U/L (14-59); Albumin Level 3.7 g/dL (3.4-5.0); Alkaline Phosphatase 92 U/L (46-116); Anion Gap 13.4; Aspartate Amino Transferase 22 U/L (15-37); Bilirubin Total 0.6 mg/dL (0.2-1.0); Calcium 9.4 mg/dL (8.5-10.1); Carbon Dioxide 26.5 mmol/L (21.0-32.0); Chloride 102 mmol/L (98-107); Chol HDL Ratio 3.2; Cholesterol 193 mg/dL (<=200); Estimated GFR (African America >60 (>=60 mL/min/1.73m^2); Estimated GFR (Non-African Ame >60 (>=60 mL/min/1.73m^2); Free T3 4.48 pg/mL (2.18-3.98); Globulin 3.8 g/dL; Glucose 98 mg/dL (74-106); HDL Cholesterol 60 mg/dL (40-60); LDL Cholesterol Calculated 106.2 mg/dL; Potassium 3.9 mmol/L (3.5-5.1); Sodium 138 mmol/L (136-145); Thyroid Stimulating Hormone 0.481 uIU/mL (0.358-3.740); Total Protein 7.5 g/dL (6.4-8.2); Triglycerides 134 mg/dL (<=150); VLDL CHOLESTEROL 26.8 mg/dL
== END 2024-06-26 10:07 | disposition home or self-care (01) ==
LOC: LAB 10:07
PROVIDERS: PCP Family Medicine; Visit Provider Family Medicine
DX: D62 Acute posthemorrhagic anemia (principal); I10 Essential (primary) hypertension; E03.9 Hypothyroidism, unspecified; E11.9 Type 2 diabetes mellitus without complications; R53.83 Other fatigue
CPT/HCPCS: 36415; 80053; 80061; 83036; 84439; 84443; 84481; 85025

== ENCOUNTER 2024-06-27 15:25 | Outpatient (REF) | payer MEDICARE, SELFPAY ==
[2024-06-27 16:21] LABS: Internal Control Within Normal Limits; Occult Blood Positive
== END 2024-06-27 15:26 | disposition home or self-care (01) ==
LOC: LAB 15:25
PROVIDERS: PCP Family Medicine; Visit Provider Family Medicine
DX: D62 Acute posthemorrhagic anemia (principal)
CPT/HCPCS: G0328

== ENCOUNTER 2024-07-24 15:18 | Outpatient (OUT) | payer MEDICARE, SELFPAY ==
--- OUTSIDE RECORDS SUMMARY | 2024-07-24 15:45 | XMS_ITS | CCD ---
Author Organization [facility] Care Team Providers Care Marketing Planner Name Role Phone RSAHEED TOWNSENDORY Admitting Unavailable CARY, LAURIE Attending Unavailable HOY, NONA Referring Unavailable HOY, NONA Primary Care Unavailable CARY, LAURIE Admitting Unavailable CARY, LAURIE Attending Unavailable UNKNOWN, PHYSICIAN Referring Unavailable HOY, NONA Primary Care Unavailable CARY, LAURIE Admitting Unavailable CARY, LAURIE Attending Unavailable SELF, REFERRED Referring Unavailable HOY, NONA Primary Care Unavailable CARY, LAURIE Admitting Unavailable CARY, LAURIE Attending Unavailable CARY, LAURIE Referring Unavailable HOY, NONA Primary Care Unavailable HOY, NONA Primary Care Unavailable EBRAHEIM, ABIODUN Attending Unavailable EBRAHEIM, ABIODUN Admitting Unavailable CIARA GONZALEZ Referring Unavailable LA Procedure Practitioner Unavailab le EBRAHEIM, ABIODUN Surgeon Unavailable SHELL HAWKINS Attending Unavailable HOY, NONA Primary Care Unavailable Petry, Nona Primary Care Provider Siva Mcknightlas Primary Care Provider [phone] DR NONA SHAH Primary Care Unavailable PETRY ., DR CASTELLANO Consulting Unavailable HOY ., DR CASTELLANO Attending Unavailable HOY ., DR CASTELLANO Admitting Unavailable HOY ., DR CASTELLANO Consulting Unavailable HOY ., DR CASTELLANO Attending Unavailable HOY ., DR CASTELLANO Admitting Unavailable HOY ., DR CASTELLANO Primary Care Unavailable HOY ., DR CASTELLANO Consulting Unavailable PETRY ., DR CASTELLANO Attending Unavailable HOY ., DR CASTELLANO Admitting Unavailable HOY ., DR CASTELLANO Primary Care Unavailable SILCOX, DR RICK Attending Unavailable ZIEBER, DR TA Ortiz Consulting Unavailable JUAN LUIS ., DR CASTELLANO Primary Care Unavailable SILCOX, DR RICK Admitting Unavailable SILCOX, DR RICK Consulting Unavailable MISC, DR PRESTON Admitting Unavailable MISC, DR PRESTON Consulting Unavailable MISC, DR PRESTON Attending Unavailable HOY ., DR CASTELLANO Primary Care Unavailable NIDHI, DR TA Ortiz Consulting Unavailable Nona Mcknight MD Primary Care Provider [phone] Nona Mcknight MD Primary Care Provider [phone] TONY COMBS Admitting Unavailable TONY COMBS Attending Unavailable HOY, NONA M Primary Care Unavailable JOSÉ ANTONIOWOLFGANG GOLDMAN Attending Unavailable HOY, NONA M Primary Care Unavailable TONY COMBS Attending Unavailable HOY, NONA M Primary Care Unavailable TONY COMBS Referring Unavailable HOY, NONA M Primary Care Unavailable TONY COMBS Attending Unavailable HOY, NONA M Primary Care Unavailable HOY, NONA M Primary Care Unavailable WOLFGANG CHOU Attending Unavailable HOY, NONA M Primary Care Unavailable WOLFGANG CHOU Referring Unavailable HOY, NONA M Primary Care Unavailable TONY COMBS Referring Unavailable HOY, NONA M Primary Care Unavailable WOLFGANG CHOU Referring Unavailable HOY, NONA M Primary Care Unavailable TONY COMBS Admitting Unavailable TONY COMBS Attending Unavailable HOY, NONA M Primary Care Unavailable ALBINA ARZATE Consulting Unavailable Nona Mcknight MD Primary Care Provider [phone] HOY, NONA M Primary Care Unavailable WOLFGANG CHOU Referring Unavailable HALLGREN, ROMINA Attending Unavailable HOY, NONA M Primary Care Unavailable WOLFGANG CHOU Referring Unavailable HALLGREN, ROMINA Attending Unavailable JOSÉ ANTONIO, WOLFGANG Referring Unavailable HALLGREN, ROMINA Attending Unavailable HOY, NONA M Primary Care Unavailable HOY, NONA M Primary Care Unavailable WOLFGANG CHOU Referring Unavailable HALLGREN, ROMINA Attending Unavailable JOSÉ ANTONIO, WOLFGANG Referring Unavailable HALLGREN, ROMINA Attending Unavailable HOY, NONA M Primary Care Unavailable HOY, ONNA M Primary Care Unavailable HALLGREN, ROMINA Attending Unavailable JOSÉ ANTONIO, WOLFGANG Referring Unavailable JOSÉ ANTONIO, WOLFGANG Referring Unavailable HOY, NONA M Primary Care Unavailable HALLGREN, ROMINA Attending Unavailable HOY, NONA M Primary Care Unavailable JOSÉ ANTONIO, WOLFGANG Referring Unavailable HALLGREN, ROMINA Attending Unavailable HOY, NONA M Primary Care Unavailable JOSÉ ANTONIO, WOLFGANG Referring Unavailable HALLGREN, ROMINA Attending Unavailable HOY, NONA M Primary Care Unavailable JOSÉ ANTONIO, WOLFGANG Referring Unavailable HOY, NONA M Primary Care Unavailable JOSÉ ANTONIO, WOLFGANG Referring Unavailable HOY, NONA M Primary Care Unavailable WOFLGANG CHOU Attending Unavailable HOY, NONA M Primary Care Unavailable WOLFGANG CHOU Attending Unavailable HOY, NONA M Primary Care Unavailable WOLFGANG CHOU Referring Unavailable TONY COMBS Referring Unavailable HOY, NONA M Primary Care Unavailable KRISTI VASQUEZ Referring Unavailable HOY, NONA M Primary Care Unavailable HOY, NONA M Primary Care Unavailable WOLFGANG CHOU Attending Unavailable TONY COMBS Attending Unavailable HOY, NONA M Primary Care Unavailable HOY, NONA M Primary Care Unavailable WOLFGANG CHOU Referring Unavailable ROMINA DARNELL Attending Unavailable HOY, NONA M Primary Care Unavailable WOLFGANG CHOU Referring Unavailable ROMINA DARNELL Attending Unavailable Nilam Garnica Attending Unavailable Lonny VASQUEZ Attending Unavailable Petrdanie Nona Primary Care Physician Allergies Allergy Classification Reported Allergen(s) Allergy Type Date of Onset Reaction(s) Facility (5 sources) Amoxicillin; Translations: [Unknown] Drug Allergy 4 [facility] Rep[facility] (4 sources) Codeine; Translations: [CODEINE] Drug Allergy 8 [facility] (1 source) Penicillins (Antibiotic) Drug allergy (disorder) 8 [facility] (2 sources) Sulfonamides (Antibiotic) Drug allergy (disorder) 5 [facility] (16 sources) Amoxicillin Drug Allergy 9 Rash [facility] (20 sources) Codeine; Translations: [codeine] Drug Allergy 8 Mental Status Change, Near syncope (disorder) [facility] (5 sources) Leucine; Translations: [NICKEL] Drug Allergy 0 [facility] (1 source) Penicillins Drug allergy (disorder) 4 [facility] (1 source) Tylenol-Codeine #3 Drug allergy (disorder) 0 [facility] (14 sources) nickel Drug Allergy 3 Rash [facility] (2 sources) Sulfonamides (Antibiotic); Translations: [sulfa drugs] Propensity to adverse reactions (disorder) [facility] Repository Medications Current Medications Medication Drug Class(es) Dates Sig (Normalized) Sig (Original) 8 hr acetaminophen 650 mg extended release oral tablet (12 sources) Start: 09-27-2023 take 1 tablet by mouth every eight hours acetaminophen (TYLENOL ARTHRITIS PAIN) 650 mg CR tablet Take 650 mg by mouth every 8 hours. 09/27/2023 Active Comment on above: Take 650 mg by mouth every 8 hours. azithromycin 250 mg oral tablet (2 sources) Macrolide Antimicrobial Start: 04-06-2019 azithromycin (ZITHROMAX) 250 MG tablet Two at first, then one daily . 6 tablet 0 04/06/2019 Active B cmplx 4/vit D3/C/folic/zinc (VITAL-D RX ORAL) (12 sources) B cmplx 4/vit D3/C/folic/zinc (VITAL-D RX ORAL) Take by mouth. Active B cmplx 4/vit D3 /C/folic/zinc (VITAL-D RX ORAL) Take by mouth. 0 Active Comment on above: Take by mouth. Calcium Citrate (12 sources) take 2 tablets by mo uth once daily CALCIUM CITRATE ORAL Take 2 tablets by mouth once daily. Active take 2 tablets by mouth once tamika ly CALCIUM CITRATE ORAL Take 2 tablets by mouth once daily. 0 Active Comment on above: Take 2 tablets by mo uth once daily. calcium/mag oxide/vitamin d3(CORAL CALCIUM PLUS 250 MG-125 MG-200 UNIT CAP) (17 sources) Start: 12-11-2007 calcium/mag oxide/vitamin d3(CORAL CALCIUM PLUS 250 MG-125 MG-200 UNIT CAP) 0 12/11/2007 Active Start: 12-11-2007 calcium/mag ox sindhu/vitamin d3(CORAL CALCIUM PLUS 250 MG-125 MG-200 UNIT CAP) cholecalciferol, vitamin D3, (VITAMIN D3 ORAL) (12 sources) take 1 tablet by mouth once daily cholecalciferol, vitamin D3, (VITAMIN D3 ORAL) Take 1 tablet by mouth once daily. Active take 1 tablet by mouth once sonu y cholecalciferol, vitamin D3, (VITAMIN D3 ORAL) Take 1 tablet by mouth once daily. 0 Active Comment on above: Take 1 tablet by luis e once daily. levothyroxine (16 sources) l-Thyroxine Start: 09-27-2023 take 88 ug by mouth once daily levothyroxine 88 mcg, Oral, Daily, Refills(s) 0 Start Date: 09/27/23 Status: Ordered Start: 07-21-2023 take 1 tablet by mouth once le vothyroxine (SYNTHROID) 88 mcg tablet Take 1 tablet by mouth every afternoon. 07/21/2023 Active Comment on above: Take 1 tablet by luis e th every afternoon. liothyronine sodium 0.005 mg oral tablet (16 sources) l-Triiodothyronine Start: take 1 tablet by mouth once daily liothyronine 5 mcg Tab 5 mcg = 1 tab(s), Oral, Daily, Refills(s) 0 Start Date: 09/27/23 Status: Ordered Start: 06-29-2023 liothyronine ( CYTOMEL) 5 mcg tablet 06/29/2023 Active multivitamins w-minerals/lut(CENTRAL SRIKANTH SENIOR-LUTEIN TAB) (17 sources) Start: 12-11-2007 multivitamins w-minerals/lut(CENTRAL SRIKANTH SENIOR-LUTEIN TAB) 0 12/11/2007 Active Start: 12-11-2007 multivitamins w-minerals/lut(CENTRAL SRIKANTH SENIOR-LUTEIN TAB) ondansetron 8 mg disintegrating oral tablet (13 sources) Serotonin-3 Receptor Antagonist Start: 09-12-2023 take 1 tablet by mouth every eight hours as needed for nausea ondansetron orally disintegrating (ZOFRAN ODT) 8 mg disintegrating tablet Indications: prevention of post-operative nausea and vomiting Take 1 tablet by mouth every 8 hours as needed for nausea/vomiting. 6 tablet 09/12/2023 Active Comment on above: Take 1 tablet by luis e th every 8 hours as needed for nausea/vomiting. oxybutynin chloride 2.5 mg oral tablet (15 sources) Cholinergic Muscarinic Antagonist Start: 08-21-2023 take 1 tablet by mouth once oxybutynin (DITROPAN) 2.5 mg tablet Take 1 tablet by mouth every afternoon. 08/21/2023 Active Comment on above: Take 1 tablet by luis e th every afternoon. pantoprazole 40 mg delayed release oral tablet (1 source) Proton Pump Inhibitor Start: 07-05-2024 take 1 tablet by mouth once daily Pantoprazole [address] Tab 40 mg = 1 tab(s), Oral, Daily, Refills(s) 0 Start Date: 07/05/24 Status: Ordered pseudoephedrine hydrochloride 30 mg oral tablet (17 sources) alpha-Adrenergic Agonist Start: 11-09-2007 PSEUDOEPHEDRINE 30 MG TAB 0 11/09/2007 Active rOPINIRole 1 mg oral tablet (13 sources) Nonergot Dopamine Agonist Start: 07-05-2024 take 1 tablet by mouth once daily ropinirole 1 mg Tab 1 mg = 1 tab(s), Oral, Daily, Refills(s) 0 Start Date: 07/05/24 Status: Ordered Start: 10-04-2023 [facility] 1 [facility] by [facility] daily at bedtime rOPINIRole (REQUIP) 0.5 mg tablet 1 tablet 1 to 3 hours before bedtime Orally Once a day for 30 days 10/04/2023 Active Comment on above: 1 tablet 1 to 3 hour s before bedtime Orally Once a day for 30 days traMADol hydrochloride 50 mg oral tablet (1 source) Opioid Agonist Start: 07-05-2024 take 1 tablet by mouth every six hours as needed for pain traMADOL 50 mg Tab 50 mg = 1 tab(s), Oral, q6hr, PRN as needed for pain, Refills(s) 0 Start Date: 07/05/24 Status: Ordered Vitamin D3 (1 source) Start: 09-27-2023 take 2000 [IU] by mouth once daily Vitamin D3 2,000 unit(s), Oral, Daily, Refills(s) 0 Start Date: 09/27/23 Status: Ordered Completed/Discontinued Medications Medication Drug Class(es) Dates Sig (Normalized) Sig (Original) cephalexin 500 mg oral capsule (1 source) Cephalosporin Antibacterial Start: 10-30-2023 End: 11-06-2023 take 1 capsule by mouth three times daily cephALEXin (KEFLEX) 500 mg capsule Take 1 capsule by mouth three times a day for 7 days. 21 capsule 0 10/30/2023 11/06/2023 Comment on above: Take 1 capsule by mo [facility] three times a day for 7 days. estradiol 0.025 mg vaginal insert (3 sources) Estrogen Start: 01-23-2009 estradiol(VAGIF EM 25 MCG VAGINAL TAB) Insert one(1) tablet vaginally twice weekly. 90 days 3 01/23/2009 Active Comment on above: Insert one(1) tablet vaginally twice weekly. glucosamine hydrochloride 50 mg/ml / methylsulfonylmethane 16.7 mg/ml oral solution (3 sources) Start: 12-11-2007 glucosamine hcl/msm(GLUCOSA MINE MSM 1,500 MG-500 MG/30 ML ORAL LIQUID) Grape Seed Extract (14 sources) Start: 12-11-2007 grape seed extract(GRAPE SEED 25 MG CAP) grape seed extra ct (GRAPE SEED ORAL) Take 1 tablet by mouth as directed. Active grape seed extra ct (GRAPE SEED ORAL) Take 1 tablet by mouth as directed. 0 Active Comment on above: Take 1 tablet by luis e th as directed. ibuprofen 600 mg oral tablet (3 sources) Nonsteroidal Anti-inflammatory Drug Start: 8 take 1 tablet by mouth every six hours as needed IBUPROFEN 600 MG TAB 1 Tab ORAL EVERY 6 HOURS NEEDED 30 5 12/27/2007 Active Comment on above: 1 Tab ORAL EVERY 6 H OURS NEEDED 24 hr mirabegron 25 mg extended release oral tablet (1 source) beta3-Adrenergic Agonist Start: 3 take 1 tablet by mouth once MYRBETRIQ 25 mg Tb24 Take 1 tablet by mouth every afternoon. 0 05/31/2023 Active Comment on above: Take 1 tablet by luis e every afternoon. ubidecarenone 10 mg oral capsule (3 sources) Start: 8 ubidecarenone(CO Q-10 10 MG CAP) Problems Active Problems Problem Classification Problem Date Documented Da te Episodic/Chronic Conduction disorders (1 source) Unspecified right bundle-branch block; Translations: [UNSPECIFIED RIGHT BUNDLE-BRANCH BLOCK] Onset: 8 Chronic Diabetes mellitus without complication (1 source) Diabetes mellitus 07-05-2024 Chronic Disorders of lipid metabolism (2 sources) Hyperlipidemia, unspecified; Translations: [Pure hypercholesterolemia] Onset: 2 07-05-2024 Chronic Diverticulosis and diverticulitis (1 source) Diverticular disease of colon 07-05-2024 Chronic Esophageal disorders (16 sources) Gastro-esophageal reflux disease without esophagitis; Translations: [Gastroesophageal reflux disease without esophagitis] Onset: 2 09-11-2023 Chronic Essential hypertension (1 source) Benign essential hypertension 07-05-2024 Chronic External cause codes: Fall (1 source) Fall (on) (from) other stairs and steps, initial encounter; Translations: [FALL (ON) (FROM) OTHER STAIRS AND STEPS, INITIAL ENCOUNTER] Onset: [address]: [address] of occurrence (1 source) Garden or yard of other non-institutional residence as the place of occurrence of the external cause; Translations: [GARDEN OR YARD OF NON-INSTITUTIONAL RESIDENCE PLACE] Onset: 8 Fracture of neck of femur (hip) (7 sources) Nondisplaced intertrochanteric fracture of right femur, initial encounter for closed fracture; Translations: [Displaced intertrochanteric fracture of right femur, subsequent encounter for closed fracture with routine healing] Onset: 8 Episodic Heart valve disorders (1 source) Heart murmur 07-05-2024 Episodic Nonmalignant breast conditions (1 source) Fibrocystic disease of breast 07-05-2024 Chronic Nutritional deficiencies (1 source) Vitamin D deficiency, unspecified; Translations: [VITAMIN D DEFICIENCY UNSPECIFIED] Onset: 2 Chronic Osteoarthritis (16 sources) Bilateral primary osteoarthritis of hip; Translations: [Arthritis of shoulder region joint] Onset: 9 09-11-2023 Chronic Osteoporosis (2 sources) Age-related osteoporosis without current pathological fracture; Translations: [Osteoporosis] Onset: 8 07-05-2024 Chronic Other acquired deformities (1 source) Scoliosis, unspecified; Translations: [SCOLIOSIS, UNSPECIFIED] Onset: 8 Chronic Other acquired deformities (1 source) Contracture of joint of shoulder region; Translations: [Contracture, left shoulder] 08-30-2023 Chronic Other acquired deformities (1 source) Contracture, left shoulder; Translations: [Contracture of shoulder, left] Onset: 3 Chronic Other connective tissue disease (1 source) Presence of right artificial knee joint; Translations: [PRESENCE OF RIGHT ARTIFICIAL KNEE JOINT] Onset: 8 Chronic Other connective tissue disease (20 sources) History of reverse prosthetic total arthroplasty of left shoulder; Translations: [Presence of left artificial shoulder joint] Onset: 3 09-12-2023 Chronic Other connective tissue disease (3 sources) Presence of left artificial shoulder joint; Translations: [S/P reverse total shoulder arthroplasty, left] Onset: 3 Chronic Other connective tissue disease (1 source) Arthrodesis status; Translations: [ARTHRODESIS STATUS] Onset: 8 Episodic Other diseases of bladder and urethra (14 sources) Overactive bladder; Translations: [Overactive bladder] Onset: 3 09-11-2023 Chronic Other gastrointestinal disorders (1 source) History of gastrointestinal bleed 07-05-2024 Episodic Other gastrointestinal disorders (1 source) Occult blood in stools 07-05-2024 Episodic Other hereditary and degenerative nervous system conditions (1 source) Restless legs 07-05-2024 Chronic Other nervous system disorders (1 source) Other chronic pain; Translations: [Chronic right shoulder pain] Onset: 3 Chronic Other nervous system disorders (1 source) Chronic pain syndrome 07-05-2024 Chronic Other non-traumatic joint disorders (2 sources) Other specific arthropathies, not elsewhere classified, left shoulder; Translations: [Rotator cuff tear arthropathy of left shoulder] Onset: 4 Chronic Other non-traumatic joint disorders (2 sources) Chronic pain of right upper limb; Translations: [Pain in right shoulder] 07-18-2023 Episodic Other nutritional; endocrine; and metabolic disorders (1 source) Overweight 07-05-2024 Episodic Other upper respiratory disease (1 source) Seasonal allergic rhinitis 07-05-2024 Chronic Residual codes; unclassified (1 source) Pain; Translations: [Pain, unspecified] 07-18-2023 Episodic Spondylosis; intervertebral disc disorders; other back problems (3 sources) Spondylosis, unspecified; Translations: [Other cervical disc degeneration, unspecified cervical region] Onset: 8 07-05-2024 Chronic Comment on above: Outside Source Comme nt: Overview: Added automatically from request for surgery [id number] Spondylosis; intervertebral disc disorders; other back problems (6 sources) Cervicalgia; Translations: [Pain in thoracic spine] Onset: 3 Episodic Thyroid disorders (15 sources) Hypothyroidism; Translations: [Hypothyroidism, unspecified] Onset: 3 09-11-2023 Chronic Unclassified (2 sources) DX Onset: 8 Past or Other Problems Problem Classification Problem Date Documented Date Episodic/Chronic Allergic reactions (3 sources) Allergy status to narcotic agent status; Translations: [Allergy status to sulfonamides status] Onset: 07-13-2018 Episodic Complication of device; implant or graft (14 sources) Disorders of musculoskeletal implants and repairs; Translations: [Other mechanical complication of other internal orthopedic devices, implants and grafts, initial encounter] Onset: 10-30-2023 10-30-2023 Episodic Deficiency and other anemia (1 source) Anemia, unspecified; Translations: [ANEMIA UNSPECIFIED] Onset: 03-07-2022 Episodic Diabetes mellitus without complication (1 source) Other abnormal glucose; Translations: [OTHER ABNORMAL GLUCOSE] Onset: 03-07-2022 Episodic Fracture of upper limb (5 sources) Closed fracture of acromial process of scapula; Translations: [Displaced fracture of acromial process, unspecified shoulder, sequela] Onset: 10-24-2023 07-22-2023 Episodic Immunizations and screening for infectious disease (1 source) Encounter for immunization; Translations: [ENCOUNTER FOR IMMUNIZATION] Onset: 07-13-2018 Episodic Other connective tissue disease (4 sources) Other specified soft tissue disorders; Translations: [OTHER SPECIFIED SOFT TISSUE DISORDERS] Onset: 07-26-2018 Episodic Other connective tissue disease (20 sources) Rotator cuff arthropathy of left shoulder; Translations: [Unspecified rotator cuff tear or rupture of left shoulder, not specified as traumatic] Onset: 10-02-2023 07-18-2023 Episodic Other connective tissue disease (20 sources) Nontraumatic complete rupture of rotator cuff of left shoulder; Translations: [Complete rotator cuff tear or rupture of left shoulder, not specified as traumatic] Onset: 10-02-2023 07-22-2023 Episodic Other connective tissue disease (2 sources) Unspecified rotator cuff tear or rupture of left shoulder, not specified as traumatic; Translations: [Rotator cuff tear arthropathy of left shoulder] Onset: 10-02-2023 Episodic Other connective tissue disease (2 sources) Complete rotator cuff tear or rupture of left shoulder, not specified as traumatic; Translations: [Nontraumatic complete tear of rotator cuff, left] Onset: 09-29-2023 Episodic Other injuries and conditions due to external causes (3 sources) Unspecified injury of muscle, fascia and tendon of long head of biceps, left arm, initial encounter; Translations: [Shoulder and upper arm injury] Onset: 09-11-2023 07-22-2023 Episodic Other non-traumatic joint disorders (20 sources) Decreased range of shoulder movement; Translations: [Stiffness of left shoulder, not elsewhere classified] Onset: 10-02-2023 11-06-2023 Episodic Other non-traumatic joint disorders (1 source) Pain in right shoulder; Translations: [Chronic right shoulder pain] Onset: 07-18-2023 Episodic Other skin disorders (4 sources) Alopecia mucinosa; Translations: [ALOPECIA MUCINOSA] Onset: 03-03-2022 Episodic Other upper respiratory infections (1 source) Acute frontal sinusitis; Translations: [Acute non-recurrent frontal sinusitis] Episodic Residual codes; unclassified (1 source) Acquired absence of both cervix and uterus; Translations: [ACQUIRED ABSENCE OF BOTH CERVIX AND UTERUS] Onset: 07-13-2018 Episodic Residual codes; unclassified (1 source) Pain, unspecified; Translations: [Pain] Onset: 07-18-2023 Episodic Results Test Name Value Interpretation Reference Range Facility XR SHLDR >/=3V AP/JULIETA AP/OTH R LTon 04-25-2024 XR SHLDR >/=3V AP/JULIETA AP/OTHR LT * * *Final Report* * * DATE OF EXAM: Apr 25 2024 2:09PM [address] - XR SHLDR >/=3V AP/JULIETA AP/OTHR LT / PROCEDURE REASON: S/P reverse total shoulder arthroplasty, left * * * * Physician Interpretation * * * * HISTORY: S/P reverse total shoulder arthroplasty, left TECHNOLOGIST PROVIDED HISTORY (if applicable): S/P reverse total shoulder arthroplasty, left TECHNIQUE: XR SHLDR >/=3V AP/JULIETA AP/OTHR LT RESULT: LEFT shoulder 5 views compared with 01/11/2024. Osteopenia contributes to limited detail. Again seen to have had reverse total shoulder arthroplasty with cemented humeral implant. Small heterotopic ossifications are again seen. No abnormal lucencies, acute fracture or dislocation. Widening of the acromioclavicular joint with adjacent ossification again seen. Degenerative changes are present in the spine. There are aortic calcifications. IMPRESSION: NO SIGNIFICANT CHANGE. Mechanics Supervisor: WILLIAM Transcribe Date/Time: Apr 25 2024 11:12P Dictated by : ADITI FERNANDEZ MD This examination was interpreted and the report reviewed and electronically signed by: ADITI FERNANDEZ MD on Apr 25 2024 11:16PM EST [id number] Normal [facility] XR Shoulder - left 3 Viewson 04-25-2024 IMPRESSION: NO SIGNIFICANT CHANGE. Mechanics Supervisor: WILLIAM Transcribe Date/Time: Apr 25 2024 11:12P Dictated by : ADITI FERNANDEZ MD This examination was interpreted and the report reviewed and electronically signed by: ADITI FERNANDEZ MD on Apr 25 2024 11:16PM EST DIVISION OF RADIOLOGY * * *Final Report* * * DATE OF EXAM: Apr 25 2024 2:09PM [address] - XR SHLDR >/=3V AP/JULIETA AP/OTHR LT / PROCEDURE REASON: S/P reverse total shoulder arthroplasty, left * * * * Physician Interpretation * * * * HISTORY: S/P reverse total shoulder arthroplasty, left TECHNOLOGIST PROVIDED HISTORY (if applicable): S/P reverse total shoulder arthroplasty, left TECHNIQUE: XR SHLDR >/=3V AP/JULIETA AP/OTHR LT RESULT: LEFT shoulder 5 views compared with 01/11/2024. Osteopenia contributes to limited detail. Again seen to have had reverse total shoulder arthroplasty with cemented humeral implant. Small heterotopic ossifications are again seen. No abnormal lucencies, acute fracture or dislocation. Widening of the acromioclavicular joint with adjacent ossification again seen. Degenerative changes are present in the spine. There are aortic calcifications. DIVISION OF RADIOLOGY Provider, [facility] - 04/25/2024 * * *Final Report* * * DATE OF EXAM: Apr 25 2024 2:09PM [address] - XR SHLDR >/=3V AP/JULIETA AP/OTHR LT / PROCEDURE REASON: S/P reverse total shoulder arthroplasty, left * * * * Physician Interpretation * * * * HISTORY: S/P reverse total shoulder arthroplasty, left TECHNOLOGIST PROVIDED HISTORY (if applicable): S/P reverse total shoulder arthroplasty, left TECHNIQUE: XR SHLDR >/=3V AP/JULIETA AP/OTHR LT RESULT: LEFT shoulder 5 views compared with 01/11/2024. Osteopenia contributes to limited detail. Again seen to have had reverse total shoulder arthroplasty with cemented humeral implant. Small heterotopic ossifications are again seen. No abnormal lucencies, acute fracture or dislocation. Widening of the acromioclavicular joint with adjacent ossification again seen. Degenerative changes are present in the spine. There are aortic calcifications. IMPRESSION IMPRESSION: NO SIGNIFICANT CHANGE. Mechanics Supervisor: WILLIAM Transcribe Date/Time: Apr 25 2024 11:12P Dictated by : ADITI FERNANDEZ MD This examination was interpreted and the report reviewed and electronically signed by: ADITI FERNANDEZ MD on Apr 25 2024 11:16PM EST [facility] Radiology Study observation (narrative) [facility] XR Shoulder - left 3 ViewsOr dered By: [facility] Provider on 04-25-2024 [facility] CNOVon 01-11-2024 CNOV Office Visit (ORTHMN ) QING FISCHER ([id number]) 1945 F Date Time Provider Department 01/11/24 1:40 PM WOLFGANG CHOU During your visit today, we recorded the following information about you: Weight Height 60.8 kg 1.524 m Wolfgang Chou PA-C 01/11/2024 3:50 PM Signed Patient Name: QING Sutton [facility] No: [id number] Date of Service: January 11, 2024 [facility] Patient returns for follow up approximately 4 months status post Left shoulder reverse total Shoulder Arthroplasty, extensive capsular release, biceps tenodesis, open reduction internal fixation of acromion fracture 09/11/[address] Combs AND left shoulder removal of prominent K wires under local anesthesia with Dr. Combs 10/30/2023. Overall patient states doing very well since our last visit. Patient reports 0/10 pain today. No refills on prescriptions requested in office today. PAIN EVALUATION No data found in the last 1 encounters. X-rays taken in office today display stable postsurgical changes in anatomic alignment without signs of hardware loosening. EXAM: On exam incision is well healed. AROM patient displays elevation 120 degrees, external rotation 30 degrees, and internal rotation to the sacrum. Operative shoulder is stable throughout PROM and displays good strength in all planes. IMPRESSION: S/p reverse total shoulder arthroplasty, left (primary encounter diagnosis) RECOMMENDATION: Patient is to see occupational therapy for continued Phase I-II protocols with supine exercises, heat AND water exercises, gradual strength AND conditioning. Patient is instructed on continued home maintenance exercises for the shoulder AND the need for antibiotics for dental appointments AND other elective medical procedures. Patient is to return for reevaluation with new x-rays in 3 months time. If they have any questions or concerns they are to call AND our office will gladly assist them sooner. This note was partially generated using EverConnect voice recognition system and as such may contain grammatical or word errors Wolfgang Chou PA-C January 11, 2024 Allergies As of Date: 01/11/2024 Noted Allergy Reaction CODEINE 12/11/2007 1 - Mental Status Change Comments: Tylenol with codeine. Hot/ flushed. AMOXICILLIN 09/07/2023 2 - Rash NICKEL 09/07/2023 2 - Rash Date Reviewed: 01/11/2024 Reviewed by: Francisco Hurst MA - Fully Assessed Reason for Visit: Follow Up For [3040] Cmt: Left shoulder pain Primary Visit Diagnosis:S/P reverse total shoulder arthroplasty, left [Z96.612] Order(s):XR SHOULDER GENERAL 3V OR MORE AP/TRUE AP/OTHER LEFT [3501432] Order #: [id number] FUTURE Prescriptions as of 01/11/2024 - CALCIUM CITRATE ORAL Take 2 tablets by mouth once daily. - B cmplx 4/vit D3/C/folic/zinc (VITAL-D RX ORAL) Take by mouth. - cholecalciferol, vitamin D3, (VITAMIN D3 ORAL) Take 1 tablet by mouth once daily. - acetaminophen (TYLENOL ARTHRITIS PAIN) 650 mg CR tablet Take 650 mg by mouth every 8 hours. - grape seed extract (GRAPE SEED ORAL) Take 1 tablet by mouth as directed. - rOPINIRole (REQUIP) 0.5 mg tablet 1 tablet 1 to 3 hours before bedtime Orally Once a day for 30 days - ondansetron orally disintegrating (ZOFRAN ODT) 8 mg disintegrating tablet Take 1 tablet by mouth every 8 hours as needed for nausea/vomiting. - levothyroxine (SYNTHROID) 88 mcg tablet Take 1 tablet by mouth every afternoon. - liothyronine (CYTOMEL) 5 mcg tablet - oxybutynin (DITROPAN) 2.5 mg tablet Take 1 tablet by mouth every afternoon. - multivitamins w-minerals/lut(CENTRAL SRIKANTH SENIOR-LUTEIN TAB) - calcium/mag oxide/vitamin d3(CORAL CALCIUM PLUS 250 MG-125 MG-200 UNIT CAP) - PSEUDOEPHEDRINE 30 MG TAB Problem List As Of Date 01/11/2024 Noted Resolved Hypothyroidism [E03.9] 09/08/2023 OAB (overactive bladder) [N32.81] 09/08/2023 Gastroesophageal reflux disease without esophag*09/08/2023 Shoulder arthritis [M19.019] 09/11/2023 S/P reverse total shoulder arthroplasty, left [*09/11/2023 Decreased range of motion of left shoulder [M25*10/02/2023 Nontraumatic complete tear of rotator cuff, lef*10/02/2023 Rotator cuff tear arthropathy of left shoulder *10/02/2023 Exposed orthopaedic hardware (HCC) [T84.498A] 10/30/2023 Disposition: Return in about 3 months (around 04/11/2024) for Imaging Before Appointment [facility]. Follow-up and Disposition History for Encounter Date Provider Department Center 01/11/2024 [id number] CHOUMN [facility] Encounter Status:Closed by WOLFGANG CHOU on 01/11/24 Normal [facility] XR SHLDR >/=3V AP/JULIETA AP/OTH R LTon 01-11-2024 XR SHLDR >/=3V AP/JULIETA AP/OTHR LT * * *Final Report* * * DATE OF EXAM: Jan 11 2024 2:30PM [address] - XR SHLDR >/=3V AP/JULIETA AP/OTHR LT / PROCEDURE REASON: S/P reverse total shoulder arthroplasty, left * * * * Physician Interpretation * * * * Left shoulder radiographs HISTORY: Shoulder arthroplasty TECHNIQUE: 3 views of the left shoulder COMPARISON: 11/09/2023 FINDINGS: Left shoulder arthroplasty in anatomic position. No acute fracture or osteolysis evident. Mild dystrophic ossification or debris about the shoulder. Chronic attenuation at the acromioclavicular joint. IMPRESSION: 1. Left shoulder arthroplasty with no fracture or osteolysis. Mechanics Supervisor: WILLIAM Transcribe Date/Time: Jan 11 2024 4:15P Dictated by : ERNESTINA WEAVER MD This examination was interpreted and the report reviewed and electronically signed by: ERNESTINA WEAVER MD on Jan 11 2024 4:18PM EST [id number] Normal [facility] XR Shoulder - left 3 Viewson 01-11-2024 [facility] [id number] 12-26-2023 [id number] HNO ID: [id number] Author: ROMINA DARNELL OTR/L Service: ? Author Type: Occupational Therapist Type: [id number] Filed: 12/26/2023 15:55 Note Text: [facility] Rehabilitation and Sports Therapy Occupational Therapy Plan of Care Certification Patient Name: Qing Fischer : 1945 [facility] #: [id number] Date: 12/26/2023 To: Wolfgang Chou PA-C From Therapist: RAHUL Olsen RE: Patient Certification/ Recertification Your review, approval and electronic signature are required in order to comply with Payor: [facility] [employer] AND [facility] / Plan: [facility] MEDICARE ADVANTAGE HMO / Product Type: HMO / regulations. The identified Occupational Therapy PLAN OF CARE for the patient is as follows: M25.612 Decreased range of motion of left shoulder (primary encounter diagnosis) Z96.612 S/P reverse total shoulder arthroplasty, left M75.122 Nontraumatic complete tear of rotator cuff, left M75.102, M12.812 Rotator cuff tear arthropathy of left shoulder PLAN OF CARE UPDATE: Assessment: Qing Fishcer demonstrates improvements in cleaning, dressing, and grooming. She has progressed toward goals. Patient continues to present with impairments in range of motion and strength that interfere with (pt c/o difficulty at times due to R shoulder/neck pain, but has been able to use L UE to completed cleaning tasks, dressing, hygiene.) . Current prognosis is Good due to: current objective clinical presentation, positive past response to therapy, good support system/ coping skills . She is using her LUE for tasks, but has limitations due to pain in R shoulder/neck. She feels she is completing her exercises well and is comfortable using her LUE for tasks. She will follow-up with surgeon's office next week. She may continue on her own with her home program, but may return to OT for additional stretching and strengthening if needed. She will benefit from continued skilled therapy services to meet the updated goals for this plan of care as noted below. PLAN FOR NEXT VISIT: pt to follow-up with surgeon's office prior to scheduling further OT. 1 session completed in 2022 Updated 10/16/2023; 11/21/23; 12/26/23 Goals for Episode of Care created on 09/15/23 through 01/13/24 Patient will report a good understanding of diagnoses and OT recommendations for progression of program.-met, but ongoing as program is updated 12/26/23 Patient will demonstrate independence with ongoing home recommendations/exerci se program throughout therapy plan of care.-met, but ongoing as program is updated 12/26/23 Patient will improve function in Left upper extremity in order to be able to perform prior functional tasks.-met 12/26/2023 Patient will report a decrease in pain in Left shoulder and upper arm to 2/10 or less at rest and with basic self-care tasks.-met 11/21/23 Patient will increase AROM of Left elbow to WFL in order to be able to improve function for basic self-care tasks.-met 12/26/23 Patient will increase passive shoulder flexion and external rotation to WFL in preparation for active range of motion when permitted by MD / BIJAN.-progressing 12/26/23 Patient/patient's spouse will demonstrate correct application of sling and verbalize understanding of proper wear/care. -met 11/09/23-sling discontinued Patient will report a good understanding of edema control, scar / wound management throughout therapy plan of care to promote non-adherent / non-tender soft tissue. Patient will demonstrate decreased edema compared to initial testing measurements. -progressing 12/26/23 Patient will report a good understanding of the use of pain reducing modalities to help manage discomfort and promote healing.-met 10/16/23 Patient Goals: be able to use the arm again-met 12/26/23 Planned Interventions, Frequency, and Duration: 1x every other week, 4 weeks Total Number of Visits Planned: 2 Planned Treatment Interventions: Therapeutic exercise (64056), Manual therapy (72151), Self-long term management (40465), [facility] For further details regarding this patient refer to the Occupational Therapy electronically documented visit dated 12/26/2023. Provider Attestation I have reviewed the treatment plan for Qing Sutton Aaliyah, CC# [id number] for the period of 12/14/23 -- 01/25/24, established on 12/26/2023. Signature certifies the need for therapy services. Normal [facility] CNTHERAPYon 12-26-2023 CNTHERAPY OT/PT/Speech Visit (ZAHIRA) QING FISCHER ([id number]) 1945 F [place] Date Time Provider Department 12/26/23 2:45 PM ROMINA DARNELL Date Time Provider Department Center 12/26/2023 2:45 PM [id number] DARNELL Reason for Visit: OT Discharge [750] OT Progress Note [1595] Primary Visit Diagnosis:Decreased range of motion of left shoulder [M25.612] Other Visit Diagnoses:S/P reverse total shoulder arthroplasty, left [Z96.612] Nontraumatic complete tear of rotator cuff, left [M75.122] Rotator cuff tear arthropathy of left shoulder [M75.102, M12.812] Allergies As of Date: 12/26/2023 Noted Allergy Reaction CODEINE 12/11/2007 1 - Mental Status Change Comments: Tylenol with codeine. Hot/ flushed. AMOXICILLIN 09/07/2023 2 - Rash NICKEL 09/07/2023 2 - Rash Date Reviewed: 11/09/2023 Reviewed by: Dali Calles, RN - Fully Assessed Prescriptions as of 02/29/2024 - CALCIUM CITRATE ORAL Take 2 tablets by mouth once daily. - B cmplx 4/vit D3/C/folic/zinc (VITAL-D RX ORAL) Take by mouth. - cholecalciferol, vitamin D3, (VITAMIN D3 ORAL) Take 1 tablet by mouth once daily. - acetaminophen (TYLENOL ARTHRITIS PAIN) 650 mg CR tablet Take 650 mg by mouth every 8 hours. - grape seed extract (GRAPE SEED ORAL) Take 1 tablet by mouth as directed. - rOPINIRole (REQUIP) 0.5 mg tablet 1 tablet 1 to 3 hours before bedtime Orally Once a day for 30 days - ondansetron orally disintegrating (ZOFRAN ODT) 8 mg disintegrating tablet Take 1 tablet by mouth every 8 hours as needed for nausea/vomiting. - levothyroxine (SYNTHROID) 88 mcg tablet Take 1 tablet by mouth every afternoon. - liothyronine (CYTOMEL) 5 mcg tablet - oxybutynin (DITROPAN) 2.5 mg tablet Take 1 tablet by mouth every afternoon. - multivitamins w-minerals/lut(CENTRAL SRIKANTH SENIOR-LUTEIN TAB) - calcium/mag oxide/vitamin d3(CORAL CALCIUM PLUS 250 MG-125 MG-200 UNIT CAP) - PSEUDOEPHEDRINE 30 MG TAB Normal [facility] CNTHERAPYon 12-19-2023 CNTHERAPY OT/PT/Speech Visit (LOOTRM) QING FISCHER ([id number]) 1945 [facility] Date Time Provider Department 12/19/23 2:45 PM ROMINA DARNELL Date Time Provider Department Center 12/19/2023 2:45 PM [id number] DARNELL Benjamin Reason for Visit: Occupational Therapy [504] Primary Visit Diagnosis:Decreased range of motion of left shoulder [M25.612] Other Visit Diagnoses:S/P reverse total shoulder arthroplasty, left [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 Hot/ flushed. AMOXICILLIN 09/07/2023 2 - Rash NICKEL 09/07/2023 2 - Rash Date Reviewed: 11/09/2023 Reviewed by: Dali Calles RN - Fully Assessed Prescriptions as of 12/19/2023 - CALCIUM CITRATE ORAL Take 2 tablets by mouth once daily. - B cmplx 4/vit D3/C/folic/zinc (VITAL-D RX ORAL) Take by mouth. - cholecalciferol, vitamin D3, (VITAMIN D3 ORAL) Take 1 tablet by mouth once daily. - acetaminophen (TYLENOL ARTHRITIS PAIN) 650 mg CR tablet Take 650 mg by mouth every 8 hours. - grape seed extract (GRAPE SEED ORAL) Take 1 tablet by mouth as directed. - rOPINIRole (REQUIP) 0.5 mg tablet 1 tablet 1 to 3 hours before bedtime Orally Once a day for 30 days - ondansetron orally disintegrating (ZOFRAN ODT) 8 mg disintegrating tablet Take 1 tablet by mouth every 8 hours as needed for nausea/vomiting. - levothyroxine (SYNTHROID) 88 mcg tablet Take 1 tablet by mouth every afternoon. - liothyronine (CYTOMEL) 5 mcg tablet - oxybutynin (DITROPAN) 2.5 mg tablet Take 1 tablet by mouth every afternoon. - multivitamins w-minerals/lut(CENTRAL SRIKANTH SENIOR-LUTEIN TAB) - calcium/mag oxide/vitamin d3(CORAL CALCIUM PLUS 250 MG-125 MG-200 UNIT CAP) - PSEUDOEPHEDRINE 30 MG TAB Normal [facility] CNTHERAPYon 12-12-2023 CNTHERAPY OT/PT/Speech Visit (ZAHIRA) QING FISCHER ([id number]) 1945 F Date Time Provider Department 12/12/23 2:45 PM ROMINA DARNELL Date Time Provider Department Center 12/12/2023 2:45 PM [id number] DARNELL Reason for Visit: Occupational Therapy [504] Primary Visit Diagnosis:Decreased range of motion of left shoulder [M25.612] Other Visit Diagnoses:S/P reverse total shoulder arthroplasty, left [Z96.612] Nontraumatic complete tear of rotator cuff, left [M75.122] Rotator cuff tear arthropathy of left shoulder [M75.102, M12.812] Allergies As of Date: 12/12/2023 Noted Allergy Reaction CODEINE 12/11/2007 1 - Mental Status Change Comments: Tylenol with codeine. Hot/ flushed. AMOXICILLIN 09/07/2023 2 - Rash NICKEL 09/07/2023 2 - Rash Date Reviewed: 11/09/2023 Reviewed by: Dali Calles, ADELAIDA - Fully Assessed Prescriptions as of 12/12/2023 - CALCIUM CITRATE ORAL Take 2 tablets by mouth once daily. - B cmplx 4/vit D3/C/folic/zinc (VITAL-D RX ORAL) Take by mouth. - cholecalciferol, vitamin D3, (VITAMIN D3 ORAL) Take 1 tablet by mouth once daily. - acetaminophen (TYLENOL ARTHRITIS PAIN) 650 mg CR tablet Take 650 mg by mouth every 8 hours. - grape seed extract (GRAPE SEED ORAL) Take 1 tablet by mouth as directed. - rOPINIRole (REQUIP) 0.5 mg tablet 1 tablet 1 to 3 hours before bedtime Orally Once a day for 30 days - ondansetron orally disintegrating (ZOFRAN ODT) 8 mg disintegrating tablet Take 1 tablet by mouth every 8 hours as needed for nausea/vomiting. - levothyroxine (SYNTHROID) 88 mcg tablet Take 1 tablet by mouth every afternoon. - liothyronine (CYTOMEL) 5 mcg tablet - oxybutynin (DITROPAN) 2.5 mg tablet Take 1 tablet by mouth every afternoon. - multivitamins w-minerals/lut(CENTRAL SRIKANTH SENIOR-LUTEIN TAB) - calcium/mag oxide/vitamin d3(CORAL CALCIUM PLUS 250 MG-125 MG-200 UNIT CAP) - PSEUDOEPHEDRINE 30 MG TAB Normal [facility] CNTHERAPYon 12-05-2023 CNTHERAPY OT/PT/Speech Visit (ZAHIRA) QING FISCHER ([id number]) 1945 F [place] Date Time Provider Department 12/05/23 2:45 PM ROMINA DARNELL Date Time Provider Department Center 12/05/2023 2:45 PM [id number] DARNELL Reason for Visit: Occupational Therapy [504] Primary Visit Diagnosis:Decreased range of motion of left shoulder [M25.612] Other Visit Diagnoses:S/P reverse total shoulder arthroplasty, 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 Hot/ flushed. AMOXICILLIN 09/07/2023 2 - Rash NICKEL 09/07/2023 2 - Rash Date Reviewed: 11/09/2023 Reviewed by: Dali Calles RN - Fully Assessed Prescriptions as of 12/05/2023 - CALCIUM CITRATE ORAL Take 2 tablets by mouth once daily. - B cmplx 4/vit D3/C/folic/zinc (VITAL-D RX ORAL) Take by mouth. - cholecalciferol, vitamin D3, (VITAMIN D3 ORAL) Take 1 tablet by mouth once daily. - acetaminophen (TYLENOL ARTHRITIS PAIN) 650 mg CR tablet Take 650 mg by mouth every 8 hours. - grape seed extract (GRAPE SEED ORAL) Take 1 tablet by mouth as directed. - rOPINIRole (REQUIP) 0.5 mg tablet 1 tablet 1 to 3 hours before bedtime Orally Once a day for 30 days - ondansetron orally disintegrating (ZOFRAN ODT) 8 mg disintegrating tablet Take 1 tablet by mouth every 8 hours as needed for nausea/vomiting. - levothyroxine (SYNTHROID) 88 mcg tablet Take 1 tablet by mouth every afternoon. - liothyronine (CYTOMEL) 5 mcg tablet - oxybutynin (DITROPAN) 2.5 mg tablet Take 1 tablet by mouth every afternoon. - multivitamins w-minerals/lut(CENTRAL SRIKANTH SENIOR-LUTEIN TAB) - calcium/mag oxide/vitamin d3(CORAL CALCIUM PLUS 250 MG-125 MG-200 UNIT CAP) - PSEUDOEPHEDRINE 30 MG TAB Annotated image of OT HAND NERVE GLIDE RADIAL last updated by Romina Dranell OTR/Cristopher on 12/05/2023 3:30 PM Normal [facility] CNTHERAPYon 11-28-2023 CNTHERAPY OT/PT/Speech Visit (ZAHIRA) QING FISCHER ([id number]) 1945 F [place] Date Time Provider Department 11/28/23 2:00 PM ROMINA DARNELL Date Time Provider Department [place] 11/28/2023 2:00 PM [id number] DARNELL Reason for Visit: Occupational Therapy [504] Primary Visit Diagnosis:Decreased range of motion of left shoulder [M25.612] Other Visit Diagnoses:S/P reverse total shoulder arthroplasty, left [Z96.612] Nontraumatic complete tear of rotator cuff, left [M75.122] Rotator cuff tear arthropathy of left shoulder [M75.102, M12.812] Allergies As of Date: 11/28/2023 Noted Allergy Reaction CODEINE 12/11/2007 1 - Mental Status Change Comments: Tylenol with codeine. Hot/ flushed. AMOXICILLIN 09/07/2023 2 - Rash NICKEL 09/07/2023 2 - Rash Date Reviewed: 11/09/2023 Reviewed by: Dali Calles, ADELAIDA - Fully Assessed Prescriptions as of 11/28/2023 - CALCIUM CITRATE ORAL Take 2 tablets by mouth once daily. - B cmplx 4/vit D3/C/folic/zinc (VITAL-D RX ORAL) Take by mouth. - cholecalciferol, vitamin D3, (VITAMIN D3 ORAL) Take 1 tablet by mouth once daily. - acetaminophen (TYLENOL ARTHRITIS PAIN) 650 mg CR tablet Take 650 mg by mouth every 8 hours. - grape seed extract (GRAPE SEED ORAL) Take 1 tablet by mouth as directed. - rOPINIRole (REQUIP) 0.5 mg tablet 1 tablet 1 to 3 hours before bedtime Orally Once a day for 30 days - ondansetron orally disintegrating (ZOFRAN ODT) 8 mg disintegrating tablet Take 1 tablet by mouth every 8 hours as needed for nausea/vomiting. - levothyroxine (SYNTHROID) 88 mcg tablet Take 1 tablet by mouth every afternoon. - liothyronine (CYTOMEL) 5 mcg tablet - oxybutynin (DITROPAN) 2.5 mg tablet Take 1 tablet by mouth every afternoon. - multivitamins w-minerals/lut(CENTRAL SRIKANTH SENIOR-LUTEIN TAB) - calcium/mag oxide/vitamin d3(CORAL CALCIUM PLUS 250 MG-125 MG-200 UNIT CAP) - PSEUDOEPHEDRINE 30 MG TAB Normal [facility] CNTHERAPYon 11-21-2023 CNTHERAPY OT/PT/Speech Visit (ZAHIRA) QING FISCHER ([id number]) 1945 F Date Time Provider Department 11/21/23 2:45 PM ROMINA DARNELL Date Time Provider Department Center 11/21/2023 2:45 PM [id number] DARNELL Reason for Visit: OT Progress Note [9924] Primary Visit Diagnosis:Decreased range of motion of left shoulder [M25.612] Other Visit Diagnoses:S/P reverse total shoulder arthroplasty, left [Z96.612] Nontraumatic complete tear of rotator cuff, left [M75.122] Rotator cuff tear arthropathy of left shoulder [M75.102, M12.812] Allergies As of Date: 11/21/2023 Noted Allergy Reaction CODEINE 12/11/2007 1 - Mental Status Change Comments: Tylenol with codeine. Hot/ flushed. AMOXICILLIN 09/07/2023 2 - Rash NICKEL 09/07/2023 2 - Rash Date Reviewed: 11/09/2023 Reviewed by: Dali Calles RN - Fully Assessed Prescriptions as of 11/21/2023 - CALCIUM CITRATE ORAL Take 2 tablets by mouth once daily. - B cmplx 4/vit D3/C/folic/zinc (VITAL-D RX ORAL) Take by mouth. - cholecalciferol, vitamin D3, (VITAMIN D3 ORAL) Take 1 tablet by mouth once daily. - acetaminophen (TYLENOL ARTHRITIS PAIN) 650 mg CR tablet Take 650 mg by mouth every 8 hours. - grape seed extract (GRAPE SEED ORAL) Take 1 tablet by mouth as directed. - rOPINIRole (REQUIP) 0.5 mg tablet 1 tablet 1 to 3 hours before bedtime Orally Once a day for 30 days - ondansetron orally disintegrating (ZOFRAN ODT) 8 mg disintegrating tablet Take 1 tablet by mouth every 8 hours as needed for nausea/vomiting. - levothyroxine (SYNTHROID) 88 mcg tablet Take 1 tablet by mouth every afternoon. - liothyronine (CYTOMEL) 5 mcg tablet - oxybutynin (DITROPAN) 2.5 mg tablet Take 1 tablet by mouth every afternoon. - multivitamins w-minerals/lut(CENTRAL SRIKANTH SENIOR-LUTEIN TAB) - calcium/mag oxide/vitamin d3(CORAL CALCIUM PLUS 250 MG-125 MG-200 UNIT CAP) - PSEUDOEPHEDRINE 30 MG TAB Normal [facility] CNTHERAPYon 11-14-2023 CNTHERAPY OT/PT/Speech Visit (LOOTRM) AALIYAHQING ([id number]) 1945 F [place] Date Time Provider Department 11/14/23 2:45 PM ROMINA DARNELL Date Time Provider Department Center 11/14/2023 2:45 PM [id number] DARNELL Reason for Visit: Occupational Therapy [504] Primary Visit Diagnosis:Decreased range of motion of left shoulder [M25.612] Other Visit Diagnoses:S/P reverse total shoulder arthroplasty, left [Z96.612] Nontraumatic complete tear of rotator cuff, left [M75.122] Rotator cuff tear arthropathy of left shoulder [M75.102, M12.812] Allergies As of Date: 11/14/2023 Noted Allergy Reaction CODEINE 12/11/2007 1 - Mental Status Change Comments: Tylenol with codeine. Hot/ flushed. AMOXICILLIN 09/07/2023 2 - Rash NICKEL 09/07/2023 2 - Rash Date Reviewed: 11/09/2023 Reviewed by: Dali Calles, RN - Fully Assessed Prescriptions as of 11/14/2023 - CALCIUM CITRATE ORAL Take 2 tablets by mouth once daily. - B cmplx 4/vit D3/C/folic/zinc (VITAL-D RX ORAL) Take by mouth. - cholecalciferol, vitamin D3, (VITAMIN D3 ORAL) Take 1 tablet by mouth once daily. - acetaminophen (TYLENOL ARTHRITIS PAIN) 650 mg CR tablet Take 650 mg by mouth every 8 hours. - grape seed extract (GRAPE SEED ORAL) Take 1 tablet by mouth as directed. - rOPINIRole (REQUIP) 0.5 mg tablet 1 tablet 1 to 3 hours before bedtime Orally Once a day for 30 days - ondansetron orally disintegrating (ZOFRAN ODT) 8 mg disintegrating tablet Take 1 tablet by mouth every 8 hours as needed for nausea/vomiting. - levothyroxine (SYNTHROID) 88 mcg tablet Take 1 tablet by mouth every afternoon. - liothyronine (CYTOMEL) 5 mcg tablet - oxybutynin (DITROPAN) 2.5 mg tablet Take 1 tablet by mouth every afternoon. - multivitamins w-minerals/lut(CENTRAL SRIKANTH SENIOR-LUTEIN TAB) - calcium/mag oxide/vitamin d3(CORAL CALCIUM PLUS 250 MG-125 MG-200 UNIT CAP) - PSEUDOEPHEDRINE 30 MG TAB Normal [facility] CNOVon 11-09-2023 CNOV Office Visit (ORTHBE ) QING FISCHER ([id number]) 1945 F Date Time Provider Department 11/09/23 10:15 AM WOLFGANG CHOU During your visit today, we recorded the following information about you: Wolfgang Chou PA-C 11/27/2023 1:57 PM Signed Patient Name: QING Sutton [facility] No: [id number] Date of Service: November 09, 2023 [facility] ORTHOPAEDICS Postoperative patient presents for suture removal status post left shoulder removal of prominent K wires under local anesthesia with Dr. Combs 10/30/2023. Patient reports doing very well since her procedure. She is advancing away from sling restrictions and advancing with therapy protocols status post Left shoulder reverse total Shoulder Arthroplasty, extensive capsular release, biceps tenodesis, open reduction internal fixation of acromion fracture 09/11/[address] Combs. Pain is reported as minimal in office today rated 1/10 PAIN EVALUATION 11/09/2023 1014 Pain Level: 1 Pain Location: Shoulder-Left Description: Sore Duration Amount of Time: 10 Duration Units: Days Frequency: Intermittent X-rays obtained in office today display stable postoperative findings status post interval K wire removal, reverse total shoulder arthroplasty implants remain stable without interval change. EXAM: On examination Tegaderm dressing is removed and nylon sutures removed in office today without episode. Patient tolerated this well. Operative shoulder is stable with active and passive range of motion testing. No pain with direct palpation overlying the fracture site of the acromion. IMPRESSION: S/p reverse total shoulder arthroplasty, left (primary encounter diagnosis) Nontraumatic complete tear of rotator cuff, left Closed displaced fracture of acromial process, unspecified laterality, sequela RECOMMENDATION: I discussed in detail with patient nature examination findings. She will continue advancement with her postoperative recovery and rehabilitation. She will see occupational therapy for phase 1-2 shoulder protocols heat and water exercises. Return for interval follow-up with new x-rays in 8 weeks or as needed with any new or worsening symptoms. This note was partially generated using Ever[employer] voice recognition system and as such may contain grammatical or word errors Wolfgang Chou PA-C November 09, 2023 Allergies As of Date: 11/09/2023 Noted Allergy Reaction CODEINE 12/11/2007 1 - Mental Status Change Comments: Tylenol with codeine. Hot/ flushed. AMOXICILLIN 09/07/2023 2 - Rash NICKEL 09/07/2023 2 - Rash Date Reviewed: 11/09/2023 Reviewed by: Dali Calles RN - Fully Assessed Reason for Visit: Post Op [174] Follow Up [171] Primary Visit Diagnosis:S/P reverse total shoulder arthroplasty, left [Z96.612] Other Visit Diagnoses:Nontraumatic complete tear of rotator cuff, left [M75.122] Closed displaced fracture of acromial process, unspecified laterality, sequela [S42.123S] Order(s):XR SHOULDER GENERAL 3V OR MORE AP/TRUE AP/OTHER LEFT [1174648] Order #: [id number] FUTURE CONSULT TO [facility] [19991003] Order #: [id number]: 1 FUTURE Prescriptions as of 11/27/2023 - CALCIUM CITRATE ORAL Take 2 tablets by mouth once daily. - B cmplx 4/vit D3/C/folic/zinc (VITAL-D RX ORAL) Take by mouth. - cholecalciferol, vitamin D3, (VITAMIN D3 ORAL) Take 1 tablet by mouth once daily. - acetaminophen (TYLENOL ARTHRITIS PAIN) 650 mg CR tablet Take 650 mg by mouth every 8 hours. - grape seed extract (GRAPE SEED ORAL) Take 1 tablet by mouth as directed. - rOPINIRole (REQUIP) 0.5 mg tablet 1 tablet 1 to 3 hours before bedtime Orally Once a day for 30 days - ondansetron orally disintegrating (ZOFRAN ODT) 8 mg disintegrating tablet Take 1 tablet by mouth every 8 hours as needed for nausea/vomiting. - levothyroxine (SYNTHROID) 88 mcg tablet Take 1 tablet by mouth every afternoon. - liothyronine (CYTOMEL) 5 mcg tablet - oxybutynin (DITROPAN) 2.5 mg tablet Take 1 tablet by mouth every afternoon. - multivitamins w-minerals/lut(CENTRAL SRIKANTH SENIOR-LUTEIN TAB) - calcium/mag oxide/vitamin d3(CORAL CALCIUM PLUS 250 MG-125 MG-200 UNIT CAP) - PSEUDOEPHEDRINE 30 MG TAB Problem List As Of Date 11/09/2023 Noted Resolved Hypothyroidism [E03.9] 09/08/2023 OAB (overactive bladder) [N32.81] 09/08/2023 Gastroesophageal reflux disease without esophag*09/08/2023 Shoulder arthritis [M19.019] 09/11/2023 S/P reverse total shoulder arthroplasty, left [*09/11/2023 Decreased range of motion of left shoulder [M25*10/02/2023 Nontraumatic complete tear of rotator cuff, lef*10/02/2023 Rotator cuff tear arthropathy of left shoulder *10/02/2023 Exposed orthopaedic hardware (HCC) [T84.498A] 10/30/2023 Disposition: Return in about 8 weeks (around 01/04/2024) for Imaging Before Appointment. Follow-up and Disposition History (more content not included)... Normal [facility] XR SHLDR >/=3V AP/JULIETA AP/OTH R LTon 11-09-2023 XR SHLDR >/=3V AP/JULIETA AP/OTHR LT * * *Final Report* * * DATE OF EXAM: Nov 09 2023 10:09AM [address] - XR SHLDR >/=3V AP/JULIETA AP/OTHR LT / PROCEDURE REASON: S/P reverse total shoulder arthroplasty, left * * * * Physician Interpretation * * * * SHOULDER RADIOGRAPHS - LEFT HISTORY: S/P reverse total shoulder arthroplasty, left TECHNOLOGIST PROVIDED HISTORY (if applicable): post op f/u TECHNIQUE: XR SHLDR >/=3V AP/JULIETA AP/OTHR LT COMPARISON: Radiographs 10/24/2023 RESULT: Left shoulder: Stable reverse shoulder arthroplasty without interval osteolysis or fracture. The acromioclavicular joint demonstrates mild hypertrophic osteoarthrosis. Soft tissues appear within normal limits. IMPRESSION: 1. Intact left shoulder arthroplasty Mechanics Supervisor: PSCB Transcribe Date/Time: Nov 09 2023 12:31P Dictated by : MAGDI ELLISON MD This examination was interpreted and the report reviewed and electronically signed by: MAGDI ELLISON MD on Nov 09 2023 12:33PM EST [id number] Normal [facility] XR Shoulder - left 3 Viewson 11-09-2023 [facility] CNTHERAPYon 11-06-2023 CNTHERAPY OT/PT/Speech Visit (ZAHIRA) QING FISCHER ([id number]) 1945 F Date Time Provider Department 11/06/23 2:00 PM ROMINA DARNELL Date Time Provider Department Center 11/06/2023 2:00 PM [id number] DARNELL Reason for Visit: Occupational Therapy [504] Primary Visit Diagnosis:Decreased range of motion of left shoulder [M25.612] Other Visit Diagnoses:S/P reverse total shoulder arthroplasty, left [Z96.612] Nontraumatic complete tear of rotator cuff, left [M75.122] Rotator cuff tear arthropathy of left shoulder [M75.102, M12.812] Allergies As of Date: 11/06/2023 Noted Allergy Reaction CODEINE 12/11/2007 1 - Mental Status Change Comments: Tylenol with codeine. Hot/ flushed. AMOXICILLIN 09/07/2023 2 - Rash NICKEL 09/07/2023 2 - Rash Date Reviewed: 10/30/2023 Reviewed by: Nallely Gaston, RN - Fully Assessed Prescriptions as of 11/06/2023 - cephALEXin (KEFLEX) 500 mg capsule Take 1 capsule by mouth three times a day for 7 days. - ondansetron orally disintegrating (ZOFRAN ODT) 8 mg disintegrating tablet Take 1 tablet by mouth every 8 hours as needed for nausea/vomiting. - levothyroxine (SYNTHROID) 88 mcg tablet Take 1 tablet by mouth every afternoon. - liothyronine (CYTOMEL) 5 mcg tablet - oxybutynin (DITROPAN) 2.5 mg tablet Take 1 tablet by mouth every afternoon. - multivitamins w-minerals/lut(CENTRAL SRIKANTH SENIOR-LUTEIN TAB) - calcium/mag oxide/vitamin d3(CORAL CALCIUM PLUS 250 MG-125 MG-200 UNIT CAP) - PSEUDOEPHEDRINE 30 MG TAB Annotated image of OT HAND SHOULDER PHASE II PAGE 1 last updated by Romina Darnell OTR/L on 11/06/2023 2:52 PM Annotated image of OT HAND DOWEL SHOULDER GENERAL (PAGE 1 OF 2) last updated by Romina Darenll OTR/L on 11/06/2023 2:52 PM Normal [facility] BRIEF OP NOTon 10-30-2023 BRIEF OP NOT HNO ID: [id number] Author: TONY COMBS MD Service: Orthopaedic Surgery Author Type: Fellow Type: Brief Op Note Filed: 10/30/2023 08:52 Note Text: Attestation signed by Tony Combs MD at 10/30/2023 8:52 AM Tony Combs MD BRIEF OP NOTE Patient Name: Qing Fischer Log ID: [id number] Surgery Date: 10/30/2023 Pre-Op/Pre-Procedure Diagnosis: Exposed orthopaedic hardware (HCC) [T84.498A] Post-Op/Post-Procedure Diagnosis: Same Surgeon(s) and Product Marketing Manager(s): Surgeon(s) and Role: * Tony Combs MD - Primary * Brook Peralta MD - Resident - Assisting * Shell Lawrence MD - Fellow Procedures and Anesthesia: Procedure(s) and Anesthesia Type: * REMOVAL HARDWARE SHOULDER - Local - Removal of left shoulder acromial K-wires and suture Start Time: 8:10 AM Stop Time: 8:23 AM Findings: deep implants removed in entirety Implant: * No implants in log * Estimated Blood Loss: 10mL Tourniquet Time: none used Drains: None Specimens: None Plan: 1) Discharge home today 2) Keep dressing clean, dry, and intact Signature: Shell Lawrence MD Date: October 30, 2023 Time: 8:32 AM [facility] HISTORY PHYSICALon HISTORY PHYSICAL HNO ID: [id number] Author: TONY COMBS MD Service: Orthopaedic Surgery Author Type: Resident Type: H&P Filed: 10/30/2023 08:40 Note Text: Attestation signed by Tony Combs MD at 10/30/2023 8:40 AM Tony Combs MD UPDATED HISTORY AND PHYSICAL EXAMINATION The patient's recent History and Physical has been reviewed and the patient has been examined. The contents accurately reflect the patient's condition with the following additions or revisions since the HANDP was completed. Examination indicates no changes. Heart: RRR Lungs: CTABL Patient is appropriate for indicated surgery today Brook Peralta MD Resident Physician Orthopaedic Surgery Pager: [phone] Email: Between 5PM to 7AM, or if urgent, please page the orthopaedic on-call resident at: [phone] ([phone]) for [facility] patients [id number] for [facility] patients [id number] for [facility] patients [id number] for [facility] patients [id number] for [facility] patients Normal [facility] OPERATIVE NOon 10-30-2023 OPERATIVE NO HNO ID: [id number] Author: TONY COMBS MD Service: Orthopaedic Surgery Author Type: Physician Type: Operative Report Filed: 10/31/2023 12:27 Note Text: [facility] - Operative Report QING FISCHER : 1945 AGE: 78. SEX: F PATIENT TYPE: A HOSP SV: ORTS LOCATION: [facility] ATTENDING PHYSICIAN: Tony Combs M.D. CSN NUMBER: [id number] DATE OF SURGERY/PROCEDURE: 10/30/2023 INCISION/PROCEDURE START TIME: 0810. INCISION CLOSE/PROCEDURE END TIME: 822. PREOPERATIVE DIAGNOSIS: Healed fracture of the scapular acromion of the left shoulder following open reduction and internal fixation with tension band system at the same time as reverse total shoulder arthroplasty was performed for a combination of rotator cuff tear arthropathy as well as nonunited fracture of the scapular acromion, all involving the left shoulder, now with prominent uncomfortable Liz wires as part of the tension band system requiring removement in a sterile operating room environment due to the underlying and surrounding total shoulder replacement arthroplasty. POSTOPERATIVE DIAGNOSIS: Healed fracture of the scapular acromion of the left shoulder following open reduction and internal fixation with tension band system at the same time as reverse total shoulder arthroplasty was performed for a combination of rotator cuff tear arthropathy as well as nonunited fracture of the scapular acromion, all involving the left shoulder, now with prominent uncomfortable Liz wires as part of the tension band system requiring removement in a sterile operating room environment due to the underlying and surrounding total shoulder replacement arthroplasty. SURGEON: Tony Combs M.D. MACHINE PULLER: 1. Dr. Lawrence. 2. Dr. Peralta. SURGERY/PROCEDURE: Removal two k-wires under sterile conditions with local anaesthesia left shoulder ANESTHESIA: Local infiltration anesthesia by surgeon. LOCATION: [place] [address]. SURGICAL FINDINGS: Healed fracture of the scapular acromion of the left shoulder following open reduction and internal fixation with tension band system at the same time as reverse total shoulder arthroplasty was performed for a combination of rotator cuff tear arthropathy as well as nonunited fracture of the scapular acromion, all involving the left shoulder, now with prominent uncomfortable Liz wires as part of the tension band system requiring removement in a sterile operating room environment due to the underlying and surrounding total shoulder replacement arthroplasty. INDICATIONS FOR SURGERY: The patient is a healthy active woman who has had reverse shoulder arthroplasty with combined ORIF of a nonunited fracture of the acromion of the left scapula repaired together all of which has healed and now the Liz wires need removal. DESCRIPTION OF PROCEDURE: The patient was brought to the operating room. She was carefully positioned in a seated position on the operating table. The entire left shoulder area was draped off and scrubbed, prepped, and redraped in a standard fashion. At this point, attention was turned to the posterior area of the shoulder where the tips of the Liz wires were found to be prominent as well as anteriorly where they were prominent and both sides were injected with xylocaine. A 1.5 cm longitudinal incision was made through the prior surgical area. It should be noted this is a surgery through an altered surgical field due to prior surgery here and this should have a -22 modifier. Careful blunt dissection was carried down through the scar tissue to identify raphae in the deltoid. This was carefully spread and retracted. The anterior tips of the Liz wires were engulfed with scar tissue and subdeltoid bursal tissue. This tissue was carefully sharply elevated off both 0.062 Liz wires. From the posterior side pressure was placed on the Liz wires, which may be more prominent, and they were retrieved with a sterile needle furniture delivery driver and removed. Once both removed, the incision area was irrigated with IrriSept. The skin edges were loosely closed with 4-0 nylon sutures and some Steri-Strips. A Tegaderm dressing was placed over this and in the posterior region of the shoulder, where there had been a little blister overlying the tips of the Liz wires which had healed over, a Band-Aid was placed. The patient was then undraped and allowed to go back to the recovery room in satisfactory condition having tolerated the procedure well. There were no complications. Case was clean. ESTIMATED BLOOD LOSS: Less than 5 mL. CONDITION: On return to the recovery room was stable. SPECIMENS: Included the excised 2 Liz wires. IMPLANTS: There were no further implants. I was the surgeon who performed the surgery with the assistance of Dr. Lawrence and Dr. Peralta, both of whom assisted by means of positioning, retraction, a (more content not included)... [facility] SURGICAL PATHOLOGYon CASE REPORT [facility] Comment on above: Order Comment: Speci men Type: DEVICE SPECIMENOrdering Facility: [facility] Address: [address] [place] [address] Result Comment: Surg [facility] Pathology Report Case: [id number] Authorizing Provider: Tony Combs MD Collected: 10/30/2023 08:12 AM Ordering Location: [facility] Received: 10/30/2023 10:14 AM Operating Room Pathologist: Taurus Renae MD, PhD Specimen: HARDWARE, left shoulder-removed hardware k wires Performed By: #### S ####[facility]CL[facility] [id number] OF PK CLINICAL HISTORY [facility] Comment on above: Order Comment: Speci men Type: DEVICE SPECIMENOrdering Facility: [facility] Address: [address] [place] [address] Result Comment: Pre- op diagnosis: Exposed orthopaedic hardware (HCC) [T84.498A] Performed By: #### S ####[facility] [id number] [address] OF [place] FINAL DIAGNOSIS [facility] Comment on above: Order Comment: Speci men Type: DEVICE SPECIMENOrdering Facility: [facility] Address: [address] [place] [address] Result Comment: A. L eft shoulder, orthopedic hardware, removal: -K wires (gross diagnosis only). VANESSA/RUI 10/31/23 10:25 AM Performed By: #### S ####[facility] [id number] [address] FINAL PERFORMING LAB [facility] Comment on above: Order Comment: Speci men Type: DEVICE SPECIMENOrdering Facility: [facility] Address: [address] [place] [address] Result Comment: Diag nostic interpretation performed at [facility], [address] [place] [address] CLIA# [id number] Plate Glass Installer Helper: Anthony Bruno M.D. Performed By: #### S ####[facility] [id number] [address] OF PK GROSS DESCRIPTION A. HARDWARE [facility] Comment on above: Order Comment: Speci men Type: DEVICE SPECIMENOrdering Facility: [facility] Address: [address] [place] [address] Result Comment: Rece ived fresh, labeled left shoulder-removed hardware K wires are 2, denton metallic K wires consisting of a straight guilherme with looped end. Fragmentation is not identified. There is no soft tissue present. The specimen is for gross examination only. The specimen is reviewed with Dr. Renae. RUI October 31, 2023 10:24 AM Gross examination performed at [facility], [facility], [place] [address] Performed By: #### S ####[facility]CLIA [id number] [id number] CNOVon 10-26-2023 CNOV Office Visit (ORTHBE ) QING FISCHER ([id number]) 1945 F Date Time Provider Department 10/26/23 9:45 AM TONY COMBS During your visit today, we recorded the following information about you: Tony Combs MD 10/31/2023 1:19 PM Signed Patient Name: QING [facility] No: [id number] Date of Service: October 24, 2023 [facility] - [facility] Patient returns for follow up approximately 6 weeks status post Left shoulder reverse total Shoulder Arthroplasty, extensive capsular release, biceps tenodesis, open reduction internal fixation of acromion fracture 09/11/[address] Combs. She continues to be pleased with her progress utilizing phase 1 protocols with occupational therapy. Pain is reported as minimal rated 0/10. She saw Wolfgang Chou 2 days ago, at that time she reported that over the past she noted new prominence and pressure point over the posterior aspect of the shoulder - now with an exposed prominent K wire. Patient denies any injury or trauma over that time. She is otherwise pain free. No fevers chills nausea vomiting or other constitutional symptoms. No incisional issues apart from above-mentioned hardware Prominence and subsequent exposure. PAIN EVALUATION 10/26/2023 1306 Pain Level: 1 Pain Location: Shoulder-Left Description: Sore Frequency: Continuous Intervention/Comfort measure: Reposition;Medication Comments: tylenol,ibuprofen prn X-rays taken in office today display anatomic alignment of the implants without signs of loosening, however there does appear to be posterior migration of the K wires with exposure through the skin identified on Y view. EXAM: On exam patient displays well healed incisions without signs of infection. Inspection displays posterior tenting of the skin in the region of the lateral K wire and exposed K wire of a few millimeters on examination today of the more medial wire. No pain with direct palpation overlying the acromion. Patient is neurovascularly intact. Operative shoulder is stable throughout PROM. IMPRESSION: S/p reverse total shoulder arthroplasty, left (primary encounter diagnosis)making excellent progress following RTSA AND ORIF Acromial fracture non-union RECOMMENDATION: I discussed in detail with patient and her family nature of examination and radiographic findings in office today. She displays excellent interval progress with her 6-week postoperative recovery. Discussed definitive management for her prominent hardware. This will require intraoperative removal to avoid associated risk of infection. Patient verbalized understanding and is in agreement with plan. Plan for OR next week - likely Wed - for K wire removal wth local anaesthesia. Meanwhile, she is to remain on a course of p.o. Keflex. Ok for out of sling and initiate next phase exercises Ms. Qing Fischer was seen in office today for orthopaedic evaluation. I personally have gone over the patient's updated electronic medical record and imaging studies. I've taken an updated history and performed a current physical examination. My findings have been recorded by my resident who accompanied me in this consultation above. I've gone over in detail the nature of the patient's pathology, the risks and benefits inherent in the surgery that we have discussed, the fact that I cannot provide any guarantees regarding surgery or surgical outcome as well as the need for postoperative protection and rehabilitation and follow-up. The patient understands and wishes to proceed with surgery. This will be scheduled in the near future at the patient's request. A copy of this consultation report has been sent to the patient as well as the patient's primary care physician, Dr. Mcknight. Tony Combs MD The patient was offered a surgery/procedure at a [facility] facility. The surgeon/proceduralist and patient have discussed in detail the risk of exposure to and/or potential harm posed by the COVID-19 virus with having a surgery/procedure at this time versus the risk of delaying the surgery/procedure. It is not possible to know either the risk of delaying the surgery or procedure or chance of getting an infection with perfect accuracy, but a joint decision was made between the patient and the surgeon/proceduralist to proceed at this time with the scheduled surgery/procedure as indicated on the consent form. MD Brook Mark MD Allergies As of Date: 10/26/2023 Noted Allergy Reaction CODEINE 12/11/2007 1 - Mental Status Change Comments: Tylenol with codeine. Hot/ flushed. AMOXICILLIN 09/07/2023 2 - Rash NICKEL 09/07/2023 2 - Rash Date Reviewed: 10/26/2023 Reviewed by: Nichole Groves LPN - Fully Assessed Reason for Visit: Follow Up [171] Primary Visit Diagnosis:S/P reverse total shoulder arthroplasty, lef (more content not included)... Normal [facility] CNOVon 10-24-2023 [facility] QING FISCHER ([id number]) 1945 F Date Time Provider Department 10/24/23 9:30 AM WOLFGANG CHOU [facility] During your visit today, we recorded the following information about you: Wolfgang Chou PA-C 10/26/2023 9:09 AM Signed Patient Name: QING Sutton AALIYAH [facility] No: [id number] Date of Service: October 24, 2023 [facility] - ORTHOPAEDICS Patient returns for follow up approximately 6 weeks status post Left shoulder reverse total Shoulder Arthroplasty, extensive capsular release, biceps tenodesis, open reduction internal fixation of acromion fracture 09/11/[address] Combs. She continues to be pleased with her progress utilizing phase 1 protocols with occupational therapy. Pain is reported as minimal rated 0/10. 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 Patient denies any injury or trauma over that time. Patient reports 0/10 pain today. No refills on medication are requested today. PAIN EVALUATION No data found in the last 1 encounters. X-rays taken in office today display anatomic alignment of the implants without signs of loosening, however there does appear to be posterior migration of the K wires with exposure through the skin identified on Y view. EXAM: On exam patient displays well healed incisions without signs of infection. Inspection displays posterior tenting of the skin in the region of the lateral K wire and exposed K wire of a few millimeters on examination today of the more medial wire. No pain with direct palpation overlying the acromion. Patient is neurovascularly intact. Operative shoulder is stable throughout PROM. IMPRESSION: S/p reverse total shoulder arthroplasty, left (primary encounter diagnosis) Closed displaced fracture of acromial process, unspecified laterality, sequela Rotator cuff tear arthropathy of left shoulder Exposed orthopaedic hardware (hcc) RECOMMENDATION: I discussed in detail with patient and her family nature of examination and radiographic findings in office today. She displays excellent interval progress with her 6-week postoperative recovery. Current presentation displays exposed orthopedic k-wire which creates an infection risk and recommend pin site care protocols with alcohol followed by padded Band-Aid over the prominent hardware until further follow-up with Dr. Combs to review definitive management for removal. She will continue with sling restrictions and phase 1 exercises, we will hold off on advancing her therapy protocols at this time. Patient is in agreement treatment plan as outlined, return to clinic with Dr. Combs for further evaluation and management. This note was partially generated using EverConnect voice recognition system and as such may contain grammatical or word errors Wolfgang Chou PA-C October 24, 2023 Allergies As of Date: 10/24/2023 Noted Allergy Reaction CODEINE 12/11/2007 1 - Mental Status Change Comments: Tylenol with codeine. Hot/ flushed. 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 - ondansetron orally disintegrating (ZOFRAN ODT) 8 mg disintegrating tablet Take 1 tablet by mouth every 8 hours as needed for nausea/vomiting. - levothyroxine (SYNTHROID) 88 mcg tablet Take 1 tablet by mouth every afternoon. - liothyronine (CYTOMEL) 5 mcg tablet - oxybutynin (DITROPAN) 2.5 mg tablet Take 1 tablet by mouth every afternoon. - multivitamins w-minerals/lut(CENTRAL SRIKANTH SENIOR-LUTEIN TAB) - calcium/mag oxide/vitamin d3(CORAL CALCIUM PLUS 250 MG-125 MG-200 UNIT CAP) - PSEUDOEPHEDRINE 30 MG TAB Problem List As Of Date 10/24/2023 Noted Resolved Hypothyroidism [E03.9] 09/08/2023 OAB (overactive bladder) [N32.81] 09/08/2023 Gastroesophageal reflux disease without esophag*09/08/2023 Shoulder arthritis [M19.019] 09/11/2023 S/P reverse total shoulder arthroplasty, left [*09/11/2023 Decreased range of motion of left shoulder [M25*10/02/2023 Nontraumatic complete tear of rotator cuff, lef*0 (more content not included)... [facility] XR SHLDR >/=3V AP/JULIETA AP/OTH R LTon 10-24-2023 XR SHLDR >/=3V AP/JULIETA AP/OTHR LT * * *Final Report* * * DATE OF EXAM: Oct 24 2023 9:47AM LUX 5252 - XR SHLDR >/=3V AP/JULIETA AP/OTHR LT / PROCEDURE REASON: S/P reverse total shoulder arthroplasty, left * * * * Physician Interpretation * * * * History: Postsurgical change FINDINGS: 4 views of the left shoulder are compared to prior study of 09/29/2023. Reverse left shoulder arthroplasty is in place, hardware intact and alignment satisfactory. There is no evidence of hardware loosening or acute bony process. Fixation pins overlie the acromium. IMPRESSION: Postsurgical changes without interval complication. Mechanics Supervisor: WILLIAM Transcribe Date/Time: Oct 25 2023 8:41A Dictated by : CRAIG LAN MD This examination was interpreted and the report reviewed and electronically signed by: CRAIG LAN MD on Oct 25 2023 8:42AM EST [id number] [facility] CNTHERAPYon 10-16-2023 CNTHERAPY OT/PT/Speech Visit ([facility]) QING FISCHER ([id number]) 1945 F [place] Date Time Provider Department 10/16/23 2:00 PM ROMINA DARNELL Date Time Provider Department Center 10/16/2023 2:00 PM [id number] DARNELL Reason for Visit: OT Progress Note [1595] Primary Visit Diagnosis:Decreased range of motion of left shoulder [M25.612] Other Visit Diagnoses:S/P reverse total shoulder arthroplasty, 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 Hot/ flushed. AMOXICILLIN 09/07/2023 2 - Rash NICKEL 09/07/2023 2 - Rash Date Reviewed: 09/11/2023 Reviewed by: Yazmin Heard, RN - Fully Assessed Prescriptions as of 10/16/2023 - ondansetron orally disintegrating (ZOFRAN ODT) 8 mg disintegrating tablet Take 1 tablet by mouth every 8 hours as needed for nausea/vomiting. - levothyroxine (SYNTHROID) 88 mcg tablet Take 1 tablet by mouth every afternoon. - liothyronine (CYTOMEL) 5 mcg tablet - oxybutynin (DITROPAN) 2.5 mg tablet Take 1 tablet by mouth every afternoon. - multivitamins w-minerals/lut(CENTRAL SRIKANTH SENIOR-LUTEIN TAB) - calcium/mag oxide/vitamin d3(CORAL CALCIUM PLUS 250 MG-125 MG-200 UNIT CAP) - PSEUDOEPHEDRINE 30 MG TAB Normal [facility] CNTHERAPYon 10-12-2023 CNTHERAPY OT/PT/Speech Visit (ZAHIRA) QING FISCHER ([id number]) 1945 F [place] Date Time Provider Department 10/12/23 2:00 PM ROMINA DARNELL Date Time Provider Department Center 10/12/2023 2:00 PM [id number] DARNELL Reason for Visit: Occupational Therapy [504] Primary Visit Diagnosis:Decreased range of motion of left shoulder [M25.612] Other Visit Diagnoses:S/P reverse total shoulder arthroplasty, 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 Hot/ flushed. AMOXICILLIN 09/07/2023 2 - Rash NICKEL 09/07/2023 2 - Rash Date Reviewed: 09/11/2023 Reviewed by: Yazmin Heard, ADELAIDA - Fully Assessed Prescriptions as of 10/12/2023 - ondansetron orally disintegrating (ZOFRAN ODT) 8 mg disintegrating tablet Take 1 tablet by mouth every 8 hours as needed for nausea/vomiting. - levothyroxine (SYNTHROID) 88 mcg tablet Take 1 tablet by mouth every afternoon. - liothyronine (CYTOMEL) 5 mcg tablet - oxybutynin (DITROPAN) 2.5 mg tablet Take 1 tablet by mouth every afternoon. - multivitamins w-minerals/lut(CENTRAL SRIKANTH SENIOR-LUTEIN TAB) - calcium/mag oxide/vitamin d3(CORAL CALCIUM PLUS 250 MG-125 MG-200 UNIT CAP) - PSEUDOEPHEDRINE 30 MG TAB Normal [facility] CNTHERAPYon 10-02-2023 CNTHERAPY OT/PT/Speech Visit (ZAHIRA) QING FISCHER ([id number]) 1945 F [place] Date Time Provider Department 10/02/23 11:45 AM ROMINA DARNELL Date Time Provider Department Center 10/02/2023 11:45 AM [id number] DARNELL Reason for Visit: Occupational Therapy [504] Primary Visit Diagnosis:Decreased range of motion of left shoulder [M25.612] Other Visit Diagnoses:Rotator cuff tear arthropathy of left shoulder [M75.102, M12.812] S/P reverse total shoulder arthroplasty, 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 Hot/ flushed. AMOXICILLIN 09/07/2023 2 - Rash NICKEL 09/07/2023 2 - Rash Date Reviewed: 09/11/2023 Reviewed by: Yazmin Heard, RN - Fully Assessed Prescriptions as of 10/02/2023 - ondansetron orally disintegrating (ZOFRAN ODT) 8 mg disintegrating tablet Take 1 tablet by mouth every 8 hours as needed for nausea/vomiting. - levothyroxine (SYNTHROID) 88 mcg tablet Take 1 tablet by mouth every afternoon. - liothyronine (CYTOMEL) 5 mcg tablet - oxybutynin (DITROPAN) 2.5 mg tablet Take 1 tablet by mouth every afternoon. - multivitamins w-minerals/lut(CENTRAL SRIKANTH SENIOR-LUTEIN TAB) - calcium/mag oxide/vitamin d3(CORAL CALCIUM PLUS 250 MG-125 MG-200 UNIT CAP) - PSEUDOEPHEDRINE 30 MG TAB Annotated image of OT HAND SHOULDER EXTERNAL ROTATION ACTIVE/ACTIVE ASSISTED last updated by Romina Darnell OTR/Cristopher on 10/02/2023 12:22 PM Normal [facility] CNOVon 09-29-2023 CNOV Office Visit ([facility] ) QING FISCHER ([id number]) 1945 F [place] Date Time Provider Department 09/29/23 10:15 AM W[facility]FGANG CHOU [facility] During your visit today, we recorded the following information about you: Wolfgang Chou PA-C 10/23/2023 11:33 PM Signed Patient Name: QING FISCHER [facility] No: [id number] Date of Service: September 29, 2023 [facility] ORTHOPAEDIC Patient returns for follow up status post Left shoulder reverse total Shoulder Arthroplasty, extensive capsular release, biceps tenodesis, open reduction internal fixation of acromion fracture 09/11/[address] Combs. Overall patient states she's doing very well since procedure. Patient reports 2/10 pain today. No refills on medication are requested today. PAIN EVALUATION 09/29/2023 1053 Pain Level: 2 Pain Location: Shoulder-Left Frequency: Continuous X-rays taken in office today display anatomic alignment of the implants without signs of loosening. EXAM: On exam Tegaderm dressing is removed revealing well healing incision without signs of infection. Patient is neurovascularly intact. Operative shoulder is stable throughout PROM. IMPRESSION: Rotator cuff tear arthropathy of left shoulder (primary encounter diagnosis) RECOMMENDATION: Patient is to see occupational therapy for continued sling and phase I exercises x 6 weeks post op, then progression to phase II protocol, heat and water exercises. Patient is to return for reevaluation via virtual visit in 4 weeks' time. If they have any questions or concerns our office will gladly assist them sooner. This note was partially generated using EverConnect voice recognition system and as such may contain grammatical or word errors Wolfgang Chou PA-C September 29, 2023 Allergies As of Date: 09/29/2023 Noted Allergy Reaction CODEINE 12/11/2007 1 - Mental Status Change Comments: Tylenol with codeine. Hot/ flushed. 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 - levothyroxine (SYNTHROID) 88 mcg tablet Take 1 tablet by mouth every afternoon. - liothyronine (CYTOMEL) 5 mcg tablet - oxybutynin (DITROPAN) 2.5 mg tablet Take 1 tablet by mouth every afternoon. - multivitamins w-minerals/lut(CENTRAL SRIKANTH SENIOR-LUTEIN TAB) - calcium/mag oxide/vitamin d3(CORAL CALCIUM PLUS 250 MG-125 MG-200 UNIT CAP) - PSEUDOEPHEDRINE 30 MG TAB Problem List As Of Date 09/29/2023 Noted Resolved Hypothyroidism [E03.9] 09/08/2023 OAB (overactive bladder) [N32.81] 09/08/2023 Gastroesophageal reflux disease without esophag*09/08/2023 Shoulder arthritis [M19.019] 09/11/2023 S/P reverse total shoulder arthroplasty, left [*09/11/2023 Disposition: Return in about 25 days (around 10/24/2023) for Virtual Visit Follow Up, Telephone Follow Up. Follow-up and Disposition History for Encounter Date Provider Department Center 09/29/2023 [id number], [facility] Encounter Status:Closed by WOLFGANG CHOU on 10/23/23 [facility] XR SHLDR >/=3V AP/JULIETA AP/OTH R LTon 09-29-2023 XR SHLDR >/=3V AP/JULIETA AP/OTHR LT * * *Final Report* * * DATE OF EXAM: Sep 29 2023 10:31AM LUX 5252 - XR SHLDR >/=3V AP/JULIETA AP/OTHR LT / PROCEDURE REASON: multiple diagnoses * * * * Physician Interpretation * * * * ... shoulder History: status post shoulder replacement Prior study: 09/11/2023 Findings: Four views were performed. There are findings of a reverse total shoulder joint replacement. There is no abnormal lucency or evidence of fracture. Alignment is anatomic. Again noted are fixation pins associated with the acromion. IMPRESSION: No acute findings. Mechanics Supervisor: PSCB Transcribe Date/Time: Oct 02 2023 4:21P Dictated by : ALISHA DIXON MD This examination was interpreted and the report reviewed and electronically signed by: ALISHA DIXON MD on Oct 02 2023 4:25PM EST [id number] [facility] Formson 09-28-2023 Forms [id number] 0TIFF [facility] Lab Reportson 09-28-2023 Lab Reports [id number] 0TIFF [facility] Ambulatory Visit Summaryon 0 09-27-2023 Ambulatory Visit Summary QING FISCHER :1945 Visit Date:09/27/2023 Ambulatory Visit Instructions Your Diagnosis Urge urinary incontinence Incomplete bladder emptying Bladder spasm Tests Performed Urnls Dip Stick Auto w/o Microscopy POC 90562 Your Care Team Attending Physician - BREONNA Garnica APRN, Nilam Artis Primary Care Physician - Noan Mcknight MD This Is Your Medications List Non-Formulary Medication (ULTRANOL) acetaminophen (Tylenol 8 HR Arthritis Pain) calcium carbonate-magnesium chloride (calcium-magnesium 112 mg-64 mg oral delayed release tablet) cholecalciferol (Vitamin D3) levothyroxine liothyronine (liothyronine 5 mcg Tab) omeprazole oxybutynin (oxybutynin 5 mg Tab) Procedures Performed Hyperthyroidism, Hysterectomy, Knee replacement, Partial shoulder replacement. Discharge Vitals Temperature (Temporal Artery) 37.1 ?C Heart Rate (Peripheral) 84 Blood Pressure 124/78 Height 154 cm Height 61 in Weight 60 kg Weight 132 lb BMI 25.3 Medications What How Much When Instructions Unchanged acetaminophen (Tylenol 8 HR Arthritis Pain) By Mouth Every 8 hours Unchanged calcium carbonate-magnesium chloride (calcium-magnesium 112 mg-64 mg oral delayed release tablet) By Mouth Every day Unchanged cholecalciferol (Vitamin D3) Unchanged levothyroxine Every day Unchanged liothyronine (liothyronine 5 mcg Tab) By Mouth Every day Unchanged Non-Formulary Medication (ULTRANOL) Unchanged omeprazole By Mouth Every day Unchanged oxybutynin (oxybutynin 5 mg Tab) 1 Tablets By Mouth 3 times a day as needed for for urinary discomfort Test Results Urnls Dip Stick Auto w/o Microscopy POC 36353 (09/27/2023) Bilirubin Urine Dipstick - Negative Blood Urine Dipstick - Negative Glucose Urine Dipstick - Negative Ketones Urine Dipstick - Negative Leukocytes Urine Dipstick - 1+ Small Nitrite Urine Dipstick - Negative Protein Urine Dipstick - Negative Specific [place] Urine Dipstick - 1.010 Urine Appearance Urine Dipstick - Clear Urine Color Urine Dipstick - Light yellow Urobilinogen Urine Dipstick - Normal 0.2-1 EU/dl pH Urine Dipstick - 7 Allergies sulfa drugs Nickel Problems Ongoing - Any problem that you are currently receiving treatment for. Arthritis Hyperthyroidism Patient Survey You may receive a survey via text or e-mail asking about your office visit. Please share your experience with us by completing your survey. We appreciate your feedback and thank you for choosing us for your care. [facility] Ambulatory Visit Summary QING FISCHER :1945 Visit Date:09/27/2023 Ambulatory Visit Instructions Your Diagnosis Bladder spasm Tests Performed Urnls Dip Stick Auto w/o Microscopy POC 29627 Your Care Team Attending Physician - Danika PAULSON, BREONNA, Nilam Artis Primary Care Physician - Nona Mcknight MD This Is Your Medications List Non-Formulary Medication (ULTRANOL) acetaminophen (Tylenol 8 HR Arthritis Pain) calcium carbonate-magnesium chloride (calcium-magnesium 112 mg-64 mg oral delayed release tablet) cholecalciferol (Vitamin D3) levothyroxine liothyronine (liothyronine 5 mcg Tab) omeprazole oxybutynin (oxybutynin 5 mg Tab) Procedures Performed Hyperthyroidism, Hysterectomy, Knee replacement, Partial shoulder replacement. Discharge Vitals Temperature (Temporal Artery) 37.1 ?C Heart Rate (Peripheral) 84 Blood Pressure 124/78 Height 154 cm Height 61 in Weight 60 kg Weight 132 lb BMI 25.3 Medications What How Much When Instructions Unchanged acetaminophen (Tylenol 8 HR Arthritis Pain) By Mouth Every 8 hours Unchanged calcium carbonate-magnesium chloride (calcium-magnesium 112 mg-64 mg oral delayed release tablet) By Mouth Every day Unchanged cholecalciferol (Vitamin D3) Unchanged levothyroxine Every day Unchanged liothyronine (liothyronine 5 mcg Tab) By Mouth Every day Unchanged Non-Formulary Medication (ULTRANOL) Unchanged omeprazole By Mouth Every day Unchanged oxybutynin (oxybutynin 5 mg Tab) 1 Tablets By Mouth 3 times a day as needed for for urinary discomfort Test Results Urnls Dip Stick Auto w/o Microscopy POC 16218 (09/27/2023) Bilirubin Urine Dipstick - Negative Blood Urine Dipstick - Negative Glucose Urine Dipstick - Negative Ketones Urine Dipstick - Negative Leukocytes Urine Dipstick - 1+ Small Nitrite Urine Dipstick - Negative Protein Urine Dipstick - Negative Specific [place] Urine Dipstick - 1.010 Urine Appearance Urine Dipstick - Clear Urine Color Urine Dipstick - Light yellow Urobilinogen Urine Dipstick - Normal 0.2-1 EU/dl pH Urine Dipstick - 7 Allergies sulfa drugs Nickel Problems Ongoing - Any problem that you are currently receiving treatment for. Arthritis Hyperthyroidism Patient Survey You may receive a survey via text or e-mail asking about your office visit. Please share your experience with us by completing your survey. We appreciate your feedback and thank you for choosing us for your care. Normal [facility] Patient Educationon 09-27-19 Patient Education Obstetrics and Gynecology Overactive Bladder, Adult Overactive bladder is a condition in which a person has a sudden and frequent need to urinate. A person might also leak urine if he or she cannot get to the bathroom fast enough (urinary incontinence). Sometimes, symptoms can interfere with work or social activities. What are the causes? Overactive bladder is associated with poor nerve signals between your bladder and your brain. Your bladder may get the signal to empty before it is full. You may also have very sensitive muscles that make your bladder squeeze too soon. This condition may also be caused by other factors, such as: ? Medical conditions: ? Urinary tract infection. ? Infection of nearby tissues. ? Prostate enlargement. ? Bladder stones, inflammation, or tumors. ? Diabetes. ? Muscle or nerve weakness, especially from these conditions: ? A spinal cord injury. ? Stroke. ? Multiple sclerosis. ? Parkinson's disease. ? Other causes: ? Surgery on the uterus or urethra. ? Drinking too much caffeine or alcohol. ? Certain medicines, especially those that eliminate extra fluid in the body (diuretics). ? Constipation. What increases the risk? You may be at greater risk for overactive bladder if you: ? Are an older adult. ? Smoke. ? Are going through menopause. ? Have prostate problems. ? Have a neurological disease, such as stroke, dementia, Parkinson's disease, or multiple sclerosis (MS). ? Eat or drink alcohol, spicy food, caffeine, and other things that irritate the bladder. ? Are overweight or obese. What are the signs or symptoms? Symptoms of this condition include a sudden, strong urge to urinate. Other symptoms include: ? Leaking urine. ? Urinating 8 or more times a day. ? Waking up to urinate 2 or more times overnight. How is this diagnosed? This condition may be diagnosed based on: ? Your symptoms and medical history. ? A physical exam. ? Blood or urine tests to check for possible causes, such as infection. You may also need to see a health care provider who specializes in urinary tract problems. This is called a urologist. How is this treated? Treatment for overactive bladder depends on the cause of your condition and whether it is mild or severe. Treatment may include: ? Bladder training, such as: ? Learning to control the urge to urinate by following a schedule to urinate at regular intervals. ? Doing Kegel exercises to strengthen the pelvic floor muscles that support your bladder. ? Special devices, such as: ? Biofeedback. This uses sensors to help you become aware of your body's signals. ? Electrical stimulation. This uses electrodes placed inside the body (implanted) or outside the body. These electrodes send gentle pulses of electricity to strengthen the nerves or muscles that control the bladder. ? Women may use a plastic device, called a pessary, that fits into the vagina and supports the bladder. ? Medicines, such as: ? Antibiotics to treat bladder infection. ? Antispasmodics to stop the bladder from releasing urine at the wrong time. ? Tricyclic antidepressants to relax bladder muscles. ? Injections of botulinum toxin type A directly into the bladder tissue to relax bladder muscles. ? Surgery, such as: ? A device may be implanted to help manage the nerve signals that control urination. ? An electrode may be implanted to stimulate electrical signals in the bladder. ? A procedure may be done to change the shape of the bladder. This is done only in very severe cases. Follow these instructions at home: Eating and drinking ? Make diet or lifestyle changes recommended by your health care provider. These may include: ? Drinking fluids throughout the day and not only with meals. ? Cutting down on caffeine or alcohol. ? Eating a healthy and balanced diet to prevent constipation. This may include: ? Choosing foods that are high in fiber, such as beans, whole grains, and fresh fruits and vegetables. ? Limiting foods that are high in fat and processed sugars, such as fried and sweet foods. Lifestyle ? Lose weight if needed. ? Do not use any products that contain nicotine or tobacco. These include cigarettes, chewing tobacco, and vaping devices, such as e-cigarettes. If you need help quitting, ask your health care provider. General instructions ? Take [id number] and prescription medicines only as told by your health care provider. ? If you were prescribed an antibiotic medicine, take it as told by your health care provider. Do not stop taking the antibiotic even if you start to feel better. ? Use any implants or pessary as told by your health care provider. ? If needed, wear pads to absorb urine leakage. ? Keep a log to track how much and when you drink, and when you need to urinate. This will help your health care provider monitor yo (more content not included)... 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 Has had tied her bladder with sling. 20 years ago. She states that when she has a spasm her only relieve is to push if she has the urgency she squeezes bladder muscle sometimes this helps sometimes not Never been seen in our office before BMP done 09/12/23 BUN(18) CREAT(0.75) PCP gave her Oxybutynin 5 mg qd- She does not like side effects- she was lethargic ,dry mouth PVR 272 Dysuria: denies Incomplete bladder emptying: sometimes Hematuria: denies visible blood Frequency: every 2-3 hours daily Urgency: sometimes Nocturia: every 2-3 hours nightly Stream: denies hesitation, normal stream Leaking: _sometimes Post void dripping: _denies Wearing pads/ Depends: pads wore daily, changes sometimes 3-4 times a day Urge incontinence: _sometimes Stress incontinence: denies Incontinence without Sensory Awareness: denies Abdominal pain: denies Flank pain: denies Sexual complaints: denies History of Present Illness I have reviewed and verified the staff HPI to be accurate for this encounter. Review of Systems PHQ Score Initial Depression Screen Score: 0 SCORE Physical Exam Vitals & Measurements T: 37.1 ?C(Temporal Artery) HR: 84(Peripheral) BP: 124/78 HT: 61 in HT: 154 cm WT: 60 kg WT: 132 lb BMI: 25.3 General: Elderly adult female in no acute distress. Genitourinary: Flank Pain: none. Bladder: nonpalpable Assessment/Plan 1. Incomplete bladder emptying (R33.9: Retention of urine, unspecified) UA today with small leuks, denies UTI sxs at this time. Denies recent infections or visible blood. PVR 272 cc in office today, although she does feel empty. Did urinate twice within an hr in office. Voids q2-3 hrs during the day, reports normal stream. She does state that she sits for an extended period of time on the toilet because she knows she will urinate a second time. Discussed possibility of needing a catheter in the future if emptying does not improve and she starts to get frequent infections. Denies constipation, has soft BM every day to every other day. No use of pain medication at this time. Patient ambulates well. Discussed timed voids q2hr. Avoid bladder irritants, increase hydration. Discussed double voiding and maneuvering to help empty bladder better. Will schedule cysto with possible UD in attempt to improve emptying. 2. Urge urinary incontinence (N39.41: Urge incontinence) Complains of difficulty controlling urge. She does note that she is able to tighten sometimes to stop leaking. Has tried oxybutynin and did not tolerate dry mouth, also felt space out . Has also trialed Myrbetriq, but states that it wasn't worth the jansen for the lack of results she was getting. Discussed trialing other medications such as trospium or Gemtesa. However, borderline PVR in office today. Patient states that she feels empty at this time. Incomplete bladder emptying makes her a poor candidate for use of anticholinergic medication. (see #1). Avoid bladder irritants. Kegels to strengthen pelvic floor. Timed voides. Will discuss further treatment options based on results of cysto/possible UD including medications or botox, if patient becomes a candidate based on improved emptying. Bladder spasm (N32.89: Other specified disorders of bladder) Ordered: 19780 Measure Post Void residual urine and/or bladder capacity by US- non-imaging Urnls Dip Stick Auto w/o Microscopy POC 61482 Follow-up No qualifying data available Patient Education Urinary Incontinence Overactive Bladder, Adult Cystoscopy Problem List/Past Medical History Ongoing Arthritis Hyperthyroidism Historical No qualifying data Procedure/Surgical History Hyperthyroidism, Hysterectomy, Knee replacement, Partial shoulder replacement. Medications calcium-magnesium 112 mg-64 mg oral delayed release tablet, Oral, Daily levothyroxine, Daily liothyronine 5 mcg Tab, Oral, Daily omeprazole, Oral, Daily Tylenol 8 HR Arthritis Pain, Oral, q8hr ULTRANOL Vitamin D3 Allergies sulfa drugs Nickel Social History Tobacco Never (less than 100 in lifetime) Tobacco Use:. Never Smokeless Tobacco Use:. Cigarettes, 09/27/2023 Family History Arthritis: Mother, Father and Sister. Heart disease: Mother, Father and Sister. Hypertension: Mother, Father and Sister. Lab Results Ambulatory Point of Care Results Bilirubin Urine Dipstick: Negative (09/27/23 13:24:00) Blood Urine Dipstick: Negative (09/27/23 13:24:00) Glucose Urine Dipstick: Negative (09/27/23 13:24:00) Ketones Urine Dipstick: Negative (09/27/23 13:24:00) Leukocytes Urine Dipstick: 1+ Small (09/27/23 13:24:00) Nitrite Urine Dipstick: Negative (09/27/23 13:24:00) Protein Urine Dipstick: Negative (09/27/23 13:24:00) Specific [place] Urine Dipstick: 1.010 (09/27/23 13:24:00) Urine Appearance Urine Dipstick: Clear (09/27/23 13:24 (more content not included)... Normal [facility] Comment on above: Result Comment: Elec tronically Signed By: BREONNA Garnica APRN, Nilam Artis\.br\Date and Time Signed: 09/27/23 15:12 EST CNTHERAPYon 09-15-2023 CNTHERAPY OT/PT/Speech Visit (OTLUOP) QING FISCHER ([id number]) 1945 F [place] Date Time Provider Department 09/15/23 8:30 AM MILADIS ROBERTSON Date Time Provider Department Center 09/15/2023 8:30 AM [id number] ROBERTSON [facility] Reason for Visit: OT EVAL [748] OT Discharge [750] Primary Visit Diagnosis:Decreased range of motion of left shoulder [M25.612] Other Visit Diagnoses:Acute postoperative pain of left shoulder [G89.18, M25.512] Swelling of arm [M79.89] Closed displaced fracture of acromial process, unspecified laterality, sequela [S42.123S] 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 Hot/ flushed. AMOXICILLIN 09/07/2023 2 - Rash NICKEL 09/07/2023 2 - Rash Date Reviewed: 09/11/2023 Reviewed by: Yazmin Heard RN - Fully Assessed Prescriptions as of 02/09/2024 - CALCIUM CITRATE ORAL Take 2 tablets by mouth once daily. - B cmplx 4/vit D3/C/folic/zinc (VITAL-D RX ORAL) Take by mouth. - cholecalciferol, vitamin D3, (VITAMIN D3 ORAL) Take 1 tablet by mouth once daily. - acetaminophen (TYLENOL ARTHRITIS PAIN) 650 mg CR tablet Take 650 mg by mouth every 8 hours. - grape seed extract (GRAPE SEED ORAL) Take 1 tablet by mouth as directed. - rOPINIRole (REQUIP) 0.5 mg tablet 1 tablet 1 to 3 hours before bedtime Orally Once a day for 30 days - ondansetron orally disintegrating (ZOFRAN ODT) 8 mg disintegrating tablet Take 1 tablet by mouth every 8 hours as needed for nausea/vomiting. - levothyroxine (SYNTHROID) 88 mcg tablet Take 1 tablet by mouth every afternoon. - liothyronine (CYTOMEL) 5 mcg tablet - oxybutynin (DITROPAN) 2.5 mg tablet Take 1 tablet by mouth every afternoon. - multivitamins w-minerals/lut(CENTRAL SRIKANTH SENIOR-LUTEIN TAB) - calcium/mag oxide/vitamin d3(CORAL CALCIUM PLUS 250 MG-125 MG-200 UNIT CAP) - PSEUDOEPHEDRINE 30 MG TAB Letter Text Normal [facility] Basic metabolic 2000 panelon 09-12-2023 Anion gap [Moles/Vol] 7 mmol/L Low 9-18 [facility] Comment on above: Order Comment: Speci men Type: BLOOD SPECIMENOrdering Facility: [facility] Address: [place] [address] Performed By: #### 2 4321-2 ####EVANGELICAL LABORATORYCLIA [id number] [address] [address] [place] Calcium [Mass/Vol] 8.3 mg/dL Low 8.5-10.2 [facility] Comment on above: Order Comment: Speci men Type: BLOOD SPECIMENOrdering Facility: [facility] Address: [address] [place] [address] Performed By: #### 2 4321-2 ####EVANGELICAL LABORATORYCLIA [id number] [place] [id number] [place] Chloride [Moles/Vol] 107 mmol/L High 97-105 [facility] Comment on above: Order Comment: Speci men Type: BLOOD SPECIMENOrdering Facility: [facility] Address: [address] [place] [address] Performed By: #### 2 4321-2 ####EVANGELICAL LABORATORYCLIA [id number] [place] [id number] [place] CO2 [Moles/Vol] 24 mmol/L Normal 22-30 [facility] Comment on above: Order Comment: Speci men Type: BLOOD SPECIMENOrdering Facility: [facility] Address: [address] [place] [address] Performed By: #### 2 4321-2 ####EVANGELICAL LABORATORYCLIA [id number] [place] [id number] [place] Creatinine [Mass/Vol] 0.75 mg/dL Normal 0.58-0.96 [facility] Comment on above: Order Comment: Speci men Type: BLOOD SPECIMENOrdering Facility: [facility] Address: [address] [place] [address] Performed By: #### 2 4321-2 ####EVANGELICAL LABORATORYCLIA [id number] [place] [id number] [place] Creatinine and Glomerular filtration rate.predicted panel (S/P/Bld) 81 mL/min/1.73m??? Normal >=60 [facility] Comment on above: Order Comment: Speci men Type: BLOOD SPECIMENOrdering Facility: [facility] Address: [address] [place] [address] Result Comment: Nuha mated Glomerular Filtration Rate (eGFR) is calculated using the 2020 CKD-EPI creatinine equation. This equation utilizes serum creatinine, sex, and age as parameters. The creatinine assay has traceable calibration to isotope dilution-mass spectrometry. Refer to KDIGO guidelines for clinical interpretation. In patients with unstable renal function, e.g. those with acute kidney injury, the eGFR may not accurately reflect actual GFR. Performed By: #### 2 4321-2 ####EVANGELICAL LABORATORYCLIA [id number] [place] [id number] [place] Glucose [Mass/Vol] 115 mg/dL High 74-99 [facility] Comment on above: Order Comment: Laura jackson Type: BLOOD SPECIMENOrdering Facility: [facility] Address: [address] [place] [address] Result Comment: The [place] Diabetes Association (ADA) provides guidance for cutoff values for fasting glucose and random glucose. The ADA defines fasting as no caloric intake for at least 8 hours. Fasting plasma glucose results between 100 to 125 mg/dL indicate increased risk for diabetes (prediabetes). Fasting plasma glucose results greater than or equal to 126 mg/dL meet the criteria for diagnosis of diabetes. In the absence of unequivocal hyperglycemia, results should be confirmed by repeat testing. In a patient with classic symptoms of hyperglycemia or hyperglycemic crisis, random plasma glucose results greater than or equal to 200 mg/dL meet the criteria for diagnosis of diabetes. Reference: Standards of Medical Care in Diabetes 2016, [place] [employer] Association. Diabetes Care. 2016.39(Suppl 1). Performed By: #### 2 4321-2 ####EVANGELICAL LABORATORYCLIA [id number] [place] [id number] [place] Potassium [Moles/Vol] 4.4 mmol/L Normal 3.7-5.1 [facility] Comment on above: Order Comment: Laura jackson Type: BLOOD SPECIMENOrdering Facility: [facility] Address: [address] [place] [address] Performed By: #### 2 4321-2 ####EVANGELICAL LABORATORYCLIA [id number] [place] [id number] [place] Sodium [Moles/Vol] 138 mmol/L Normal 136-144 [facility] Comment on above: Order Comment: Laura jackson Type: BLOOD SPECIMENOrdering Facility: [facility] Address: [address] [place] [address] Performed By: #### 2 4321-2 ####EVANGELICAL LABORATORYCLIA [id number] [place] [id number] [place] [facility] Urea nitrogen [Mass/Vol] 18 mg/dL Normal 7- [facility] Comment on above: Order Comment: Speci men Type: BLOOD SPECIMENOrdering Facility: [facility] Address: [address] [place] [address] [place] [address] Performed By: #### 2 4321-2 ####EVANGELICAL LABORATORYCLIA [id number] [place] [id number] [facility] CASE MGT INIT ASSESon 2022 CASE MGT INIT ASSES HNO ID: [id number] Author: Vivian Davis RN Service: Care Management Author Type: Registered Nurse Type: Care Mgt Initial Assessment Filed: 09/12/2023 3:30 PM Note Text: CARE MANAGEMENT: ASSESSMENT AND DISCHARGE PLAN SERVICE DATE: September 12, 2023 SERVICE TIME: 1310 PCP: Nona Mcknight MD Primary Contact: Extended Emergency Contact Information Primary Emergency Contact: SINA FISCHER Address: [address] [place] [address] Mobile Relation: Spouse Secondary Emergency Contact: Matt Rogers Relation: Son Admission Status: Extended Recovery Insurance [facility] Discharge Planning requested by: Per Department Practice Potential Transition Plans Home;Outpatient Therapy Advance Directives Current Advance Directive: Health Care Power of Vinyl Installer In Chart: No Current Living Arrangements and Support Lives with: Spouse/significant other Type of Residence: Private Residence (House) Does the patient have to climb stairs at home?: Yes Support: Current Services/Equipment Current Post-Acute Service(s): DME Current DME Type: Cane Discharge Planning Patient Goal(s): Better mobility, Less pain [place] of Choice Explained: [place] of Choice Given: No Reason Not Given: No placements necessary Are you interested in bedside delivery of your medications? Yes Discharge Planning Participant(s): Patient;Spouse/signifi cant other Patient/Family Comments: Caregiver Assessment: Caregiver is ready, willing and able to meet the patient's needs as recommended by the inter-professional team: Yes Name of Caregiver: Spouse Sina Fischer Transport at Discharge: Transportation Arrangements: Car Needs Prior to Discharge: Needs Prior to Discharge: OT/PT Evaluation;Discharge Prescriptions CARE MANAGEMENT DISCHARGE NOTE Admission Date: 09/11/2023 LOS: 1 day Discharge Arrangement Discharge Arrangement: Home with Relative, Home with Self Care Services Arranged Medical Services: Referred to Outpatient PT/OT Handoff Communication: Handoff to: Primary Care Physician Primary Care Physician Name/Phone: Nona Mcknight [phone] Additional Information: Summary of Care Post-Acute Discharge Plan: Patient assessed at this time. She lives with her and he will assist and transport home. She will be staying with the Son locally until tomorrow. Plan is to discharge today when all goals are met. Scripts sent to [facility]. She is scheduled for outpt OT Monday, requested an earlier day. She has no other needs. SIGNATURE: Vivian Davis RN PATIENT NAME: Qing Fischer DATE: September 12, 2023 TIME: 1:14 PM CONTACT #: [phone] Normal [facility] CBC panel Auto (Bld)on 09-12 Erythrocyte distribution width (RBC) [Ratio] 13.9 % Normal 11.5-15.0 [facility] Comment on above: Order Comment: Laura jackson Type: BLOOD SPECIMENOrdering Facility: [facility] Address: [address] [place] [address] Performed By: #### 5 8410-2 ####EVANGELICAL LABORATORYCLIA [id number] [place] [address] [place] Hematocrit (Bld) [Volume fraction] 27.9 % Low 36.0-46.0 [facility] Comment on above: Order Comment: Laura jackson Type: BLOOD SPECIMENOrdering Facility: [facility] Address: [address] [place] [address] Performed By: #### 5 8410-2 ####EVANGELICAL LABORATORYCLIA [id number] [place] [address] [place] Hemoglobin (Bld) [Mass/Vol] 8.8 g/dL Low 11.5-15.5 [facility] Comment on above: Order Comment: Speci men Type: BLOOD SPECIMENOrdering Facility: [facility] Address: [address] [place] [address] Performed By: #### 5 8410-2 ####EVANGELICAL LABORATORYCLIA [id number] [address] [place] [address] STATES [facility] MCH (RBC) [Entitic mass] 27.9 pg Normal 26.0-34.0 [facility] Comment on above: Order Comment: Speci men Type: BLOOD SPECIMENOrdering Facility: [facility] Address: [address] [place] [address] Performed By: #### 5 8410-2 ####EVANGELICAL LABORATORYCLIA [id number] [address] [place] MCHC (RBC) [Mass/Vol] 31.5 g/dL Normal 30.5-36.0 [facility] Comment on above: Order Comment: Speci men Type: BLOOD SPECIMENOrdering Facility: [facility] Address: [address] [place] [address] Performed By: #### 5 8410-2 ####EVANGELICAL LABORATORYCLIA [id number] [address] [place] MCV (RBC) [Entitic vol] 88.6 fL Normal 80.0-100.0 [facility] Comment on above: Order Comment: Speci men Type: BLOOD SPECIMENOrdering Facility: [facility] Address: [address] [place] [address] Performed By: #### 5 8410-2 ####EVANGELICAL LABORATORYCLIA [id number] [address] [place] Nucleated RBC (Bld) [#/Vol] 10*3/uL Normal <0.01 [facility] Comment on above: Order Comment: Speci men Type: BLOOD SPECIMENOrdering Facility: [facility] Address: [address] [place] [address] Performed By: #### 5 8410-2 ####EVANGELICAL LABORATORYCLIA [id number] [address] [address] [place] Platelet mean volume (Bld) [Entitic vol] 8.6 fL Low 9.0-12.7 [facility] Comment on above: Order Comment: Speci men Type: BLOOD SPECIMENOrdering Facility: [facility] Address: [place] [address] Performed By: #### 5 8410-2 ####EVANGELICAL LABORATORYCLIA [id number] [address] [place], [place] [id number] [place] Platelets (Bld) [#/Vol] 283 10*3/uL Normal 150-400 [facility] Comment on above: Order Comment: Speci men Type: BLOOD SPECIMENOrdering Facility: [facility] Address: [address] [place] [address] Performed By: #### 5 8410-2 ####EVANGELICAL LABORATORYCLIA [id number] [place] [address] [place] RBC (Bld) [#/Vol] 3.15 10*6/uL Low 3.90-5.20 [facility] Comment on above: Order Comment: Speci men Type: BLOOD SPECIMENOrdering Facility: [facility] Address: [address] [place] [address] Performed By: #### 5 8410-2 ####EVANGELICAL LABORATORYCLIA [id number] [place] [id number] [place] WBC (Bld) [#/Vol] 10.42 10*3/uL Normal 3.70-11.00 [facility] Comment on above: Order Comment: Speci men Type: BLOOD SPECIMENOrdering Facility: [facility] Address: [address] [place] [address] Performed By: #### 5 8410-2 ####EVANGELICAL LABORATORYCLIA [id number] [place] [id number] [place] CNDSon 09-12-2023 CNDS HNO ID: [id number] Author: Juan Pope MD Service: Orthopaedic Surgery Author Type: Resident Type: Discharge Summary Filed: 09/12/2023 3:12 PM Note Text: Attestation signed by Tony Combs MD at 09/13/2023 9:33 AM Tony Combs MD ORTHOPEDIC SURGERY DISCHARGE SUMMARY ADMISSION DATE: 09/11/2023 DISCHARGE DATE: 09/12/23 Attending Physician: Tony Combs MD Reason for Hospitalization: Elective Left reverse total shoulder arthroplasty Admitting Diagnosis: Left rotator cuff arthropathy and GH osteoarthritis Discharge Diagnosis: Left rotator cuff arthropathy and GH osteoarthritis Additional Diagnoses: ACTIVE PROBLEM LIST Hypothyroidism Oab (Overactive Bladder) Gastroesophageal Reflux Disease Without Esophagitis Shoulder Arthritis S/P Reverse Total Shoulder Arthroplasty, Left Surgeries During Hospitalization: Procedure(s) (LRB): REVERSE TOTAL SHOULDER ARTHROPLASTY (Left) TENODESIS LONG TENDON BICEPS (Left) CAPSULAR CONTRACTURE RELEASE (Left) GRAFT BONE EXTREMITY UPPER (Left) OPEN TX SCAPULAR FX W/ INTERNAL FIXATION (Left) TRANSFER TENDON EXTREMITY UPPER (Left) Consultations: Physical Therapy Case Management Internal Medicine Hospital Course: The patient is a 78 year old female who has been followed by Tony Duval MD in clinic for Left rotator cuff arthropathy and GH osteoarthritis. It was determined she would benefit from surgery. The procedure, its risks, benefits, and potential complications were discussed in detail with the patient prior to surgery. Understanding of all topics was conveyed by the patient, and consent was given for surgery. The patient was electively admitted to the [facility] on 09/11/2023. Surgery was scheduled and on 09/11/2023 she underwent the above procedure(s) under General anesthesia. The procedure was tolerated well and she was sent to the post operative recovery room in stable condition. The patient was subsequently sent to her hospital room for postoperative management. Once on the floor her postoperative course was unremarkable. Her diet was advanced which she tolerated. Her pain was well controlled on multimodal pain medications; this was eventually transitioned to oral medication alone prior to discharge. She worked with Physical and Occupational Therapy who recommended she be discharged home. Her dressing remained clean dry and intact throughout her stay. She remained afebrile with stable vital signs throughout her stay. She was stable for discharge home on POD#1. Complete and comprehensive discharge instructions were provided to the patient as well as necessary prescriptions. The patient had no further questions and was advised to call with any questions, concerns, or problems. Patient was hemodynamically stable postoperatively. Relevant labs included: Hemoglobin (g/dL) Date Value 09/12/2023 8.8 (L) 09/07/2023 13.2 12/27/2007 12.0 Hematocrit (%) Date Value 09/12/2023 27.9 (L) 09/07/2023 41.4 12/27/2007 37.4 Discharge Antibiotics: None Transfers: PACU and then to the hospital surgical floor when PACU criteria was met. DVT Prophylaxis: None Pain Control: Oral narcotics Complications: Continued throughout the hospital course without complications. Patient Condition @ Discharge: Stable Discharge Disposition: Home with Self Care Discharge Activity/Weight Bearing Status: TAE TAYLOR The patient was instructed to follow-up as scheduled below Future Appointments Date Time Provider Department Center 09/15/2023 8:30 [facility] 10:45 AM Wolfgang Chou PA-[facility] Discharge Medications: Medication List START taking these medications docusate sodium 100 mg capsule Commonly known as: COLACE Take 1 capsule by mouth two times a day for 7 days. ondansetron orally disintegrating 8 mg disintegrating tablet Commonly known as: ZOFRAN ODT Take 1 tablet by mouth every 8 hours as needed for nausea/vomiting. oxyCODONE-acetaminophe n 5-325 mg tablet Commonly known as: PERCOCET Take 1 tablet by mouth every 6 hours as needed for pain for up to 7 days. CONTINUE taking these medications CENTRAL SRIKANTH SENIOR-LUTEIN Tab Generic drug: Multivitamins-Minerals -Lutein CORAL CALCIUM PLUS 250-125-200 mg-mg-unit Cap Generic drug: Calcium-Mag Oxide-Vitamin D3 levothyroxine 88 mcg tablet Commonly known as: SYNTHROID liothyronine 5 mcg tablet Commonly known as: CYTOMEL oxybutynin 2.5 mg tablet Commonly known as: DITROPAN pseudoephedrine 30 mg tablet Commonly known as: SUDAFED Where to Get Your Medications These medications were sent to [facility] [address] [place] [address] Hours: Monday-Monday, 9a (more content not included)... [facility] CONSULT PROGon 09-12-2023 CONSULT PROG HNO ID: [id number] Author: Albina Arzate MD Service: General Internal Medicine Author Type: Physician Type: Consult Progress Note Filed: 09/12/2023 12:33 PM Note Text: CONSULT NOTE - INTERNAL MEDICINE PATIENT NAME: Qing Fischer SERVICE DATE: 09/12/2023 SERVICE TIME: 12:32 PM ADMITTING PHYSICIAN: Tony Combs MD SUBJECTIVE: Patient denies any CP, SOB, Dizziness, Palpitations, Abdominal Pain, Nausea or Vomiting. She is passing flatus, denies any urinary problems Her pain is controlled well OBJECTIVE PHYSICAL EXAM: Patient Vitals for the past 24 hrs: BP Temp Temp src Pulse Resp SpO2 Height Weight 09/12/23 1121 138/64 36.7 ?C (98.1 ?F) Oral 95 18 97 % -- -- 09/12/23 0734 116/50 36.6 ?C (97.9 ?F) Oral 98 18 96 % -- -- 09/12/23 0421 120/69 36.5 ?C (97.7 ?F) Oral 96 18 95 % -- -- 09/12/23 0026 111/53 -- Oral 94 18 91 % -- -- 09/11/232002 (!) 124/43 36.5 ?C (97.7 ?F) Oral 78 18 99 % -- -- 09/11/231835 -- -- -- -- -- -- 152.4 cm (5') 60.8 kg (134 lb) 09/11/231830 (!) 119/46 36.7 ?C (98.1 ?F) Oral 87 17 96 % -- -- 09/11/23 1800 120/56 36.4 ?C (97.5 ?F) Temporal 96 16 96 % -- -- 09/11/23 1749 136/61 -- -- 89 16 92 % -- -- 09/11/23 1745 136/61 36.1 ?C (97 ?F) Temporal 90 16 89 % -- -- 09/11/23 1730 136/68 -- -- 92 15 99 % -- -- 09/11/23 1717 149/61 -- -- 83 12 100 % -- -- 09/11/23 1715 149/61 -- -- 86 12 100 % -- -- 09/11/23 1712 152/67 36.3 ?C (97.3 ?F) Temporal 88 12 98 % -- -- Body mass index is 26.17 kg/m?. GENERAL: no distress LUNGS: No wheezes, few coarse rales at bases, Fair air entry. CARDIAC: normal S1 and S2; no rubs or gallops ABDOMEN: Abdomen soft, non-tender. BS normal. EXTREMETIES: Normal ankle DF Bilateral; moving all fingers right hand. Normal temperature to touch of right hand Problem List ACTIVE PROBLEM LIST Hypothyroidism Oab (Overactive Bladder) Gastroesophageal Reflux Disease Without Esophagitis Shoulder Arthritis S/P Reverse Total Shoulder Arthroplasty, Left DATA: Diagnostic tests reviewed for today's visit: Most recent labs: CBC, Coags, BMP, Mg, Phos Recent Labs 09/12/23 0603 WBC 10.42 HB 8.8* HCT 27.9* PLT 283 NA 138 K 4.4 CHLOR 107* CO2 24 BUN 18 CREAT 0.75 GLUC 115* CA 8.3* Assessment/Plan: Principal Problem: S/P reverse total shoulder arthroplasty, left (POA: Yes) Assessment AND Plan: She is doing well, feels comfortable with plans for discharge to home today Active Problems: Hypothyroidism (POA: Yes) Assessment AND Plan: Continue levothyroxine. OAB (overactive bladder) (POA: Yes) Assessment AND Plan: Patient to resume prehospital treatment Gastroesophageal reflux disease without esophagitis (POA: Yes) Assessment AND Plan: Symptoms are controlled well with PPI use. Resolved Problems: * No resolved hospital problems. * SIGNATURE: Albina Arzate MD DATE: September 12, 2023 TIME: 12:32 PM This note was partially created using voice recognition software and is inherently subject to errors including those of syntax and sound-alike substitutions which may escape proofreading. In such instances, original meaning may be extrapolated by contextual derivation [facility] THERAPY NTon 09-12-2023 THERAPY NT HNO ID: [id number] Author: Oswaldo Vernon PT Service: Physical Therapy Author Type: Physical Therapist Type: Therapy (PT/OT/Speech/Resp) Filed: 09/12/2023 11:48 AM Note Text: Physical Therapy Evaluation SERVICE DATE: 09/12/2023 SERVICE TIME: 1116 to 1131 ROOM: [place] [address] Recommended Discharge Disposition: Home Recommended Discharge Disposition Comments: Pt safe and ready to d/c home with PRN A from family. Anticipated Discharge Needs: Physical Assist at Home Physical Assist at Home for: Cleaning, Laundry, Meals, Shopping, Transportation Recommended Discharge Equipment: No equipment needs anticipated (pt owns all needed PT DME) PT 6 Clicks Score: 24 Precautions/Activity Restrictions: Shoulder Precautions, Weight Bearing Restrictions, Sling Extremity With Weight Bearing Restricted: Left Upper Extremity Left Upper Extremity Weight Bearing Status: NWB Current Hospital Course: s/p left reverse TSR on 09/11 Reason for Hospital Admission: Closed displaced fracture of acromial process and rotator cuff tear arthropathy of left shoulder Relevant Past Medical History: hypothyroidism Response to Therapy Interventions: Good Participation in Activities, On-Track to Achieve Discharge Goals, Pain, Requires Additional Time to Complete Activities Continued Skilled Needs Due to: Functional Mobility/Skill Impairments Physical Therapy Problem List: Pain, Functional Mobility Impairment, Balance Impaired Treatment Interventions: Education, Functional Mobility Training, Balance Training, Pain Management Plan for Next Visit: Gait Training, Exercise Instruction/Handout, Stair Training Home Environment Patient Lives With: Family, Other: See Comment Comments: spouse and son (pt staying at son's home first several days) Assistance Available: 24-Hour Entry To Home: Stairs, With Rail Number Of Stairs Into Home: 3 Tub/Shower Type: walk in shower Equipment Owned: Cane, Grab Bars- Toilet, Elevated Toilet Seat (quad cane) Prior Functional Level: Within Functional Limits Prior Functional Level Comments: Independent with ADLs and mobility without AD Subjective: Pt reported feeling safe and ready to d/c home CURRENT FUNCTIONAL STATUS: Most recent performance Current Functional Mobility Assist Level Additional Information Rolling Supine to Sit Sit to Supine Scooting Sit to Stand Stand By Assistance Stand to Sit Stand By Assistance Bed to Chair Toilet/Commode Gait Stand By Assistance, Additional Information Gait Device: Cane Gait Distance (feet): 260 ft Steady but slow with cane. VC for proper sequencing. Stairs Stand By Assistance, Additional Information Stairs Device: Rail Number of Stairs: 3 Pt descended stairs going sideways. Curb Step Car Transfer Blank rader indicate activity not attempted General Deviations/Observation s: Sarah decreased, Step length decreased Balance: Dynamic Sitting, Dynamic Standing Dynamic Sitting Balance: Normal Patient accepts maximal challenge and can shift weight easily within full range in all directions Dynamic Standing Balance: Fair Patient accepts minimal challenge, able to maintain balance while turning head/trunk JH-HLM: 8: Walk 250 feet or more Learning/Educational Needs: Discharge Plan, Equipment, Functional Activities/Mobility, Pain Management, Plan of Care, Safety, Rehabilitation Techniques and Procedures Goals for Plan of Care: Patient/Caregiver Goals: Go Home Goals: Patient will demonstrate understanding of importance of mobility during hospital stay and resolve all functional needs identified., Patient will demonstrate progress with functional mobility to allow safe discharge to home with available support and/or physical assistance., Patient will demonstrate progress to optimize functional mobility, maximize activity tolerance and endurance to maximize function upon discharge. Progress Toward Goals: Progressing as expected Rehab Potential: Good Patient will be discontinued from Physical Therapy when no further skilled needs are identified in this setting. PLAN: PT Frequency: 2 Times Per Week Plan of Care developed with: Patient TREATMENT INTERVENTIONS: Therapy Diagnosis: Reduced mobility-other, Unsteadiness on feet Interventions Provided: Evaluation $ Evaluation-Low (80288) Billed Units: 1 unit Training AND Education Provided in: Anatomy and Impact on Deficits, Assistive Device Use, Bed Mobility, Benefits of In-Hospital Mobility, Discharge Planning, Equipment, Falls Prevention, Handout Issued, Positioning, Role of Physical Therapy, Transfers, Stair Navigation, Treatment Protocol The Following Therapeutic Skills Were Used: Cues for Sequencing/Proper Technique for Activity, Cuing Tactile, Cuing Visual, Cuing Verbal Skilled Treatment Time (minutes): 15 Please see discipline specific clinical documentation flowsheet for complete details for this therapy evaluation/treatment. SIGNATURE: (more content not included)... Normal [facility] THERAPY NT HNO ID: [id number] Author: Samantha Jaeger OT/L Service: Occupational Therapy Author Type: Occupational Therapist Type: Therapy (PT/OT/Speech/Resp) Filed: 09/12/2023 10:10 AM Note Text: Occupational Therapy Evaluation SERVICE DATE: 09/12/2023 SERVICE TIME: 904 to 944 ROOM: [place] [address] Total Joint Replacement Discharge Readiness: Cleared from Occupational Therapy Recommended Discharge Disposition: Outpatient Occupational Therapy Anticipated Discharge Needs: Physical Assist at Home Physical Assist at Home for: Meals, Laundry, Cleaning, Transportation, Shopping, Safety OT 6 Clicks Score: 19 Precautions/Activity Restrictions: Shoulder Precautions, Weight Bearing Restrictions, Sling Extremity With Weight Bearing Restricted: Left Upper Extremity Left Upper Extremity Weight Bearing Status: NWB Current Hospital Course: s/p left reverse TSR Reason for Hospital Admission: Closed displaced fracture of acromial process and rotator cuff tear arthropathy of left shoulder Relevant Past Medical History: hypothyroidism Response to Therapy Interventions: Good Participation in Activities, Requires Additional Time to Complete Activities, Pain Continued Skilled Needs Due to: Safety Concerns, Functional Impairment Occupational Therapy Problem List: Education Deficit, Safety Deficits, Impaired Self Care, Decreased Activity Tolerance, Functional Mobility Impairment Treatment Interventions: Self Care/Home Management, Education, Energy Conservation Training, Functional Mobility Training Home Environment Patient Lives With: Family, Other: See Comment Comments: spouse and son Assistance Available: 24-Hour Entry To Home: Stairs, With Rail Number Of Stairs Into Home: 3 Tub/Shower Type: walk in shower Equipment Owned: Other: See Comment, Elevated Toilet Seat, Grab Bars- Toilet (quad cane) Prior Functional Level: Within Functional Limits Prior Functional Level Comments: Independent with ADLs and mobility without AD Occupational Factors Life Roles: Family Member Identified Strengths: Motivation Subjective: I had my other shoulder done 16 months ago CURRENT FUNCTIONAL STATUS: Most recent performance Current Activities of Daily Living Assist Level Additional Information Feeding Set Up Grooming Set Up Bathing Upper Body Moderate Assistance Bathing Lower Body Stand By Assistance Dressing Upper Body Moderate Assistance Dressing Lower Body Minimal Assistance Toileting Stand By Assistance Instrumental Activities of Daily Living Assist Level Additional Information Meal/Beverage Prep Cleaning Laundry Medication Management with Strategies Functional Mobility Assist Level Additional Information Rolling Supine to Sit Sit to Supine Scooting Sit to Stand Stand By Assistance Stand to Sit Stand By Assistance Bed to Chair Stand By Assistance Stepping Wheeled Walker Toilet/Commode Shower Functional Mobility Blank rader indicate activity not attempted Learning/Educational Needs: Discharge Plan, Equipment, Family Education/Training, Functional Activities/Mobility, Plan of Care, Positioning, Precautions, Safety, Self Care Goals for Plan of Care: Patient/Caregiver Goals: Reduce ADL/IADL barriers Goals: Patient will demonstrate progress with self-care, cognitive and/or coping needs identified to allow safe discharge to home with available support and/or physical assistance. Progress Toward Goals: Progressing as expected Rehab Potential: Good Patient will be discontinued from Occupational Therapy when no further skilled needs are identified in this setting. PLAN: OT Frequency: PRN (As Needed) Plan of Care developed with: Patient TREATMENT INTERVENTIONS: Therapy Diagnosis: Decreased activities of daily living (ADL), Reduced mobility-other Interventions Provided: Evaluation, Self Assisted Management (37891), Therapeutic Exercise (44425) $ Evaluation - Low (51616) Billed Units: 1 unit Therapeutic Exercise (84032) Treatment Minutes: 10 $ Therapeutic Exercise (72709) Billed Units: 1 unit Self Assisted Management (24661) Treatment Minutes: 15 $ Self Assisted Management (08758) Billed Units: 1 unit Training AND Education Provided in: Adaptive Equipment/DME, Activity Adaptation/Patient Safety Officer y Strategies, Bed Mobility, Benefits of In-Hospital Mobility, Discharge Planning, Expected Functional Level, Functional Mobility Involving ADLs, Lower Extremity Dressing, Home Set-up/Modifications, Precautions/Restrictio ns, Positioning, Role of Occupational Therapy, Standing Balance to Improve Wise with ADLs/Self-Care, Transfer - Sit to Stand, Transfer - Bed to Chair, Upper Extremity Bathing, Upper Extremity Dressing, Transfer - Car, Patient Exercise/Therapy Program Support Needs, Exercise Program The Following Therapeutic Skills Were Used: Assessment of Tolerance Including Vitals Response to Activity, Cues for Sequencing/Proper Technique for A (more content not included)... [facility] ANES POSTPROC EVALon 023 ANES POSTPROC EVAL HNO ID: [id number] Author: Sil Sanchez MD Service: Anesthesiology Author Type: Anesthesiologist Type: Anesthesia Postprocedure Evaluation Filed: 09/11/2023 5:59 PM Note Text: POST ANESTHESIA EVALUATION NOTE : 1945 Procedure Summary Date: 09/11/23 Room / Location: OR / OR Anesthesia Start: 1250 Anesthesia Stop: 1711 Procedures: REVERSE TOTAL SHOULDER ARTHROPLASTY (Left: Shoulder) TENODESIS LONG TENDON BICEPS (Left: Shoulder) CAPSULAR CONTRACTURE RELEASE (Left: Shoulder) GRAFT BONE EXTREMITY UPPER (Left: Shoulder) OPEN TX SCAPULAR FX W/ INTERNAL FIXATION (Left: Shoulder) TRANSFER TENDON EXTREMITY UPPER (Left: Shoulder) Diagnosis: Closed displaced fracture of acromial process, unspecified laterality, sequela Rotator cuff tear arthropathy of left shoulder Injury of tendon of long head of biceps, left, initial encounter Contracture of shoulder, left (Closed displaced fracture of acromial process, unspecified laterality, sequela [S42.123S]) (Rotator cuff tear arthropathy of left shoulder [M75.102, M12.812]) (Injury of tendon of long head of biceps, left, initial encounter [S46.102A]) (Contracture of shoulder, left [M24.512]) Surgeons: Tony Combs MD Responsible Provider: Sil Sanchez MD Anesthesia Type: general ASA Status: 3 Anesthesia Type: general Airway Type: ETT Last Vitals Vitals Value Taken Time BP 136/61 09/11/23 1755 Temp 36.1 ?C (97 ?F) 09/11/23 1745 Pulse 96 09/11/23 1759 Resp 16 09/11/23 1749 SpO2 96 % 09/11/23 1759 Vitals shown include unfiled device data. Post Anesthesia Patient Status Patient Evaluation: PACU. PACU/ICU Patient Condition: stable. Anticipated Disposition: inpatient floor planned admission. Neurological Status: aware and responsive. Airway Control: returned to baseline unsupported. Cardiovascular Status: stable. Pain Management: clinically adequate Postoperative Hydration: acceptable. Intraoperative Events: no significant anesthesia events Post Operative Nausea/Vomiting Status: no significant post operative nausea or vomiting Recommendation: continue current plan of care. Anesthesia Observations No Documentation SIGNATURE: Sil Sanchez MD PATIENT NAME: Qing Fischer DATE: September 11, 2023 TIME: 5:59 PM CSN: [id number] [facility] ANES PRE-OPon 09-11-2023 ANES PRE-OP HNO ID: [id number] Author: Sil Sanchez MD Service: Anesthesiology Author Type: Anesthesiologist Type: Anesthesia Preprocedure Evaluation Filed: 09/11/2023 10:59 AM Note Text: ANESTHESIOLOGY DAY OF SURGERY NOTE : 1945 Procedure Information Date/Time: 09/11/23 1125 Procedures: REVERSE TOTAL SHOULDER ARTHROPLASTY (Left: Shoulder) TENODESIS LONG TENDON BICEPS (Left: Shoulder) CAPSULAR CONTRACTURE RELEASE (Left: Shoulder) GRAFT BONE EXTREMITY UPPER (Left: Shoulder) OPEN TX SCAPULAR FX W/ INTERNAL FIXATION (Left: Shoulder) TRANSFER TENDON EXTREMITY UPPER (Left: Shoulder) - Left shoulder reverse total Shoulder Arthroplasty, extensive capsular release, biceps tenodesis, open reduction internal fixation of acromion fracture, bone grafting, possible tendon transfer. Location: [address] Surgeons: Tony Combs MD Estimated body mass index is 26.17 kg/m? as calculated from the following: Height as of 09/07/23: 152.4 cm (5'). Weight as of 09/07/23: 60.8 kg (134 lb). Most recent hematocrit and potassium results: Hematocrit 41.4 09/07/2023 Potassium 4.3 09/07/2023 Relevant Problems ENDO (+) Hypothyroidism GI (+) Gastroesophageal reflux disease without esophagitis I - PHYSICAL EVALUATION AIRWAY Patient intubated: No. Tracheostomy tube not present Mallampati: III. TM distance: >3 FB. Neck ROM: full ROM without neurological symptoms. Mouth opening: adequate. Short neck: no. Thick neck: no Crooks present: no Lip Bite Test: II Microretrognathia/Micr onagthia/Recessed Chin: No DENTAL Dental findings: chipped and missing tooth/teeth. II - ANESTHESIA PLAN ASA Score: 3 Anesthetic Plan: general Airway type: ETT NPO Status: adequate Beta [place] Monitoring Plan Monitoring plan: standard ASA. Post Procedure Analgesic Plan Postoperative analgesic plan: parenteral or oral opioids, multimodal analgesia and peripheral nerve block. Informed Consent Anesthetic risks, benefits, alternatives, personnel and consent discussed: yes. Patient / Responsible Libertarian agrees to proceed: yes Patient / Surrogate agrees to blood products: Yes Significant changes in the patient condition since the History and Physical, not otherwise documented in primary service progress note: no. Vitals Value Taken Time BP 127/61 09/11/23 0946 Pulse 86 09/11/2346 Resp 16 09/11/23945 Temp 37.3 ?C (99.1 ?F) 09/11/23945 SpO2 97 % 09/11/23945 Facility-Administered Medications as of 09/11/2023 Medication Dose Route Frequency - [COMPLETED] promethazine 12.5 mg tab(s) (PHENERGAN) 12.5 mg ORAL Pre-Op Once - [COMPLETED] magnesium oxide 800 mg tab(s) (MAG-OX) 800 mg ORAL ONCE - lidocaine (PF) 10 mg/mL (1 %) 1-2 mg injection (XYLOCAINE) 0.1-0.2 mL INTRADERMAL PRN - lactated ringers iv infusion 5-30 mL/hr INTRAVENOUS CONTINUOUS - NaCl 0.9% iv flush bag 20 mL INTRAVENOUS PRN - ceFAZolin iv piggyback 2 g in D5W (iso-osmotic) 100 mL (ANCEF) 2 g INTRAVENOUS ONCE Outpatient Medications as of 09/11/2023 Medication Sig - levothyroxine (SYNTHROID) 88 mcg tablet Take 1 tablet by mouth every afternoon. - liothyronine (CYTOMEL) 5 mcg tablet - oxybutynin (DITROPAN) 2.5 mg tablet Take 1 tablet by mouth every afternoon. - multivitamins w-minerals/lut(CENTRAL SRIKANTH SENIOR-LUTEIN TAB) - calcium/mag oxide/vitamin d3(CORAL CALCIUM PLUS 250 MG-125 MG-200 UNIT CAP) - PSEUDOEPHEDRINE 30 MG TAB - glucosamine hcl/msm(GLUCOSAMINE MSM 1,500 MG-500 MG/30 ML ORAL LIQUID) I have interviewed and examined the patient. I have reviewed the medical record and/or the pre-anesthesia evaluation, pertinent labs, and test results. This contains updated information obtained within 48 hours of Surgery/Procedure. SIGNATURE: Sil Sanchez MD PATIENT NAME: Qing Fischer DATE: September 11, 2023 TIME: 10:58 AM CSN: [id number] [facility] BRIEF OP NOTon 09-11-2023 BRIEF OP NOT HNO ID: [id number] Author: Rex Mckeon MD Service: Hand Surgery Author Type: Fellow Type: Brief Op Note Filed: 09/11/2023 5:39 PM Note Text: BRIEF OP NOTE Patient Name: Qing Fischer Log ID: [id number] Surgery Date: 09/11/2023 Pre-Op/Pre-Procedure Diagnosis: Closed displaced fracture of acromial process, unspecified laterality, sequela [S42.123S] Rotator cuff tear arthropathy of left shoulder [M75.102, M12.812] Injury of tendon of long head of biceps, left, initial encounter [S46.102A] Contracture of shoulder, left [M24.512] Post-Op/Post-Procedure Diagnosis: Same Surgeon(s) and Product Marketing Manager(s): Surgeon(s) and Role: * Tony Combs MD - Primary * Rex Mckeon MD - Fellow Procedures and Anesthesia: Procedure(s) and Anesthesia Type: * REVERSE TOTAL SHOULDER ARTHROPLASTY - General * TENODESIS LONG TENDON BICEPS - General * CAPSULAR CONTRACTURE RELEASE - General * GRAFT BONE EXTREMITY UPPER - General * OPEN TX SCAPULAR FX W/ INTERNAL FIXATION - General * TRANSFER TENDON EXTREMITY UPPER - General Start Time: 1:40 PM Stop Time: 4:56 PM Findings: arthritis Implant: Implant Name Type Inv. Item Serial No. Correctional Counselor/Case Manager Lot No. LRB No. Used Action TRABECULAR METAL REVERSE PLUS BASE PLATE 15MM Implant [employer] [id number] Left 1 Implanted SCREW NCB ANATOMICAL SHOULDER 4.5MM PROTASUL-64WF 24MM BONE INVERSE REVERSE - [id number] Screw SCREW NCB ANATOMICAL SHOULDER 4.5MM PROTASUL-64WF 24MM BONE INVERSE REVERSE [employer] [id number] Left 1 Wasted SCREW NCB ANATOMICAL SHOULDER 4.5MM PROTASUL-64WF 33MM BONE INVERSE REVERSE - [id number] Screw SCREW NCB ANATOMICAL SHOULDER 4.5MM PROTASUL-64WF 33MM BONE INVERSE REVERSE [employer] [id number] Left 1 Implanted SCREW NCB 4.5MM PROTASUL-64WF 30MM BONE INVERSE REVERSE LOCK STERILE - [id number] Screw SCREW NCB 4.5MM PROTASUL-64WF 30MM BONE INVERSE REVERSE LOCK STERILE [employer] [id number] Left 1 Implanted TRABECULAR METAL REVERSE PLUS SHOULDER HEAD 36MM 0DEG Implant [employer] [id number] Left 1 Implanted WIRE LIZ 1.6MM STAINLESS STEEL 5.5IN FIXATION TROCAR SMOOTH GUIDE - [id number] Wire WIRE LIZ 1.6MM STAINLESS STEEL 5.5IN FIXATION TROCAR SMOOTH GUIDE [employer] [id number] Left 1 Implanted STEM 12MM TRABECULAR METAL TIVANIUM 130MM HUMERAL REVERSE STERILE SHOULDER - [id number] Joint STEM 12MM TRABECULAR METAL TIVANIUM 130MM HUMERAL REVERSE STERILE SHOULDER [employer] [id number] Left 1 Implanted WIRE LIZ 1.6MM STAINLESS STEEL 5.5IN FIXATION TROCAR SMOOTH GUIDE - [id number] Wire WIRE LIZ 1.6MM STAINLESS STEEL 5.5IN FIXATION TROCAR SMOOTH GUIDE [employer] [id number] Left 1 Implanted LINER 36MM 12D 65D TRABECULAR METAL POLYETHYLENE H+6MM SHOULDER REVERSE - [id number] Joint LINER 36MM 12D 65D TRABECULAR METAL POLYETHYLENE H+6MM SHOULDER REVERSE [employer] [id number] Left 1 Implanted CEMENT SIMPLEX P TOBRAMYCIN BONE FULL DOSE RADIOPAQUE PREBLEND STERILE - [id number] Cement / Putty CEMENT SIMPLEX P TOBRAMYCIN BONE FULL DOSE RADIOPAQUE PREBLEND STERILE [facility] [employer] [id number] Left 1 Implanted CEMENT SIMPLEX P TOBRAMYCIN BONE FULL DOSE RADIOPAQUE PREBLEND STERILE - [id number] Cement / Putty CEMENT SIMPLEX P TOBRAMYCIN BONE FULL DOSE RADIOPAQUE PREBLEND STERILE [facility] [id number] Left 1 Implanted Estimated Blood Loss: 250mL Drains: None Specimens: left shoulder and acromion Plan: 1) Admission for observation, pain control, and PT 2) Keep dressing clean, dry, and intact until follow-up Signature: Rex Mckeon MD Date: September 11, 2023 Time: 5:39 PM [facility] CONSULTon 09-11-2023 CONSULT HNO ID: [id number] Author: Albina Arzate MD Service: General Internal Medicine Author Type: Physician Type: Consults Filed: 09/11/2023 7:25 PM Note Text: CONSULT NOTE - INTERNAL MEDICINE PATIENT NAME: Qing Fischer SERVICE DATE: 09/11/2023 SERVICE TIME: 7:22 PM ADMITTING PHYSICIAN: Tony Combs MD CC: Post operative medical m/m, patient is s/p left reverse TSR HPI: Her pain is controlled well; she has been out of bed, tolerated activity well. She denies any recent fever or chills, skin infections or any upper respiratory infections. She denies any postop nausea or vomiting. She does not smoke. Alcohol use is 1 to 2 glasses of wine with dinner (not every night, patient has at least 2 days in a week when she does not drink any alcohol) PAST MEDICAL HISTORY Diagnosis Date Esophageal reflux on nexium Unspecified sinusitis (chronic) PAST SURGICAL HISTORY Procedure Laterality Date EGD 2006 OTHER ACCESSORY cervical cryotherapy , nml pap since then PUNCTURE ASPIRATION CYST BREAST 1992 x2, many years ago Social History Tobacco Use Smoking status: Unknown Substance Use Topics Alcohol use: Yes Comment: 1-2 glasses of wine with dinner most nights Drug use: No MEDICATIONS: Current Facility-Administered Medications Medication Dose Route Frequency Provider Last Rate Last Admin [START ON 09/12/2023] levothyroxine 88 mcg tab(s) (SYNTHROID) 88 mcg ORAL DAILY (6 AM) Rex Mckeon MD [START ON 09/12/2023] liothyronine 5 mcg tab(s) (CYTOMEL) 5 mcg ORAL DAILY (6 AM) Rex Mckeon MD trospium 20 mg tab(s) (SANCTURA) 20 mg ORAL AT BEDTIME Rex Mckeon MD ceFAZolin iv piggyback 1 g in D5W (iso-osmotic) 50 mL (ANCEF) 1 g INTRAVENOUS q 8 HR Rex Mckeon MD NaCl 0.9% iv flush bag 20 mL INTRAVENOUS PRN Rex Mckeon MD NaCl 0.9% iv infusion 75 mL/hr INTRAVENOUS CONTINUOUS Rex Mckeon MD 75 mL/hr at 09/11/23 1841 75 mL/hr at 09/11/23 184 acetaminophen 1,000 mg tab(s) (TYLENOL) 1,000 mg ORAL q 8 H Rex Mckeon MD keTORolac 15 mg injection (Toradol) 15 mg INTRAVENOUS q 6 H Rex Mckeon MD 15 mg at 09/11/23 1856 traMADol 50 mg tab(s) (ULTRAM) 50 mg ORAL q 6 H PRN Rex Mckeon MD oxyCODONE IR 5-10 mg tab(s) (ROXICODONE) 5-10 mg ORAL q 3 H PRN Rex Mckeon MD ondansetron 4 mg tab(s) (ZOFRAN) 4 mg ORAL q 6 H PRN Rex Mckeon MD Or ondansetron (PF) 4 mg injection (ZOFRAN) 4 mg INTRAVENOUS q 6 H PRN Rex Mckeon MD melatonin 1 mg tab(s) 1 mg ORAL DAILY (8 PM) Rex Mckeon MD docusate sodium 100 mg cap(s) (COLACE) 100 mg ORAL BID [place], [place], [employer]NAGER[employer] polyethylene glycol 3350 17 g packet 17 g ORAL DAILY [place], [place], [employer] MANAGER.[employer] ALLERGIES Allergen Reactions Codeine Mental Status Change Tylenol with codeine. Hot/ flushed. Amoxicillin Rash Nickel Rash Family History Problem Relation Age of Onset Hypertension Father Coronary Artery Disease Father Hypertension Sister Coronary Artery Disease Sister [place] in 30s Anesthesia Problems No Family History ROS: Patient denies any recent ENT or eye complaints, CP, palpitation, cough, wheeze, dizziness, dyspnea, abdominal pain, nausea, vomiting, recent urinary or bowel changes, rash or increased ankle swelling. Rest of the review of system is negative except as noted. OBJECTIVE PHYSICAL EXAM: Patient Vitals for the past 24 hrs: BP Temp Temp src Pulse Resp SpO2 Height Weight 09/11/23 1836 -- -- -- -- -- -- 152.4 cm (5') 60.8 kg (134 lb) 09/11/23 1831 (!) 119/46 36.7 ?C (98.1 ?F) Oral 87 17 96 % -- -- 09/11/23 1800 120/56 36.4 ?C (97.5 ?F) Temporal 96 16 96 % -- -- 09/11/23 1749 136/61 -- -- 89 16 92 % -- -- 09/11/23 1745 136/61 36.1 ?C (97 ?F) Temporal 90 16 89 % -- -- 09/11/23 1730 136/68 -- -- 92 15 99 % -- -- 09/11/23 1717 149/61 -- -- 83 12 100 % -- -- 09/11/23 1715 149/61 -- -- 86 12 100 % -- -- 09/11/23 1712 152/67 36.3 ?C (97.3 ?F) Temporal 88 12 98 % -- -- 09/11/23 0946 127/61 37.3 ?C (99.1 ?F) Temporal Art 86 16 97 % -- -- Body mass index is 26.17 kg/m?. GENERAL: no distress AANDOX3 SKIN: Normal turgor HEENT: Conjunctiva is pink, no icterus; m/m moist, no sinus tenderness NECK: no submandibular lymph nodes LUNGS: Lungs clear to auscultation, Fair air entry. CARDIAC: normal S1 and S2; no rubs or gallops ABDOMEN: Abdomen soft, non-tender. BS normal. EXTREMETIES: Bilateral normal ankle DF Problem List ACTIVE PROBLEM LIST Hypothyroidism Oab (Overactive Bladder) Gastroesophageal Reflux Disease Without Esophagitis Shoulder Arthritis S/P Reverse Total Shoulder Arthroplasty, Left DATA: Diagnostic tests reviewed for today's visit: Most recent labs: WBC (k/uL) Date Value 09/07/2023 7.95 RBC (m/uL) Date Value 09/07/2023 4.62 Hemoglobin (g/dL) Date Value 09/07/2023 13.2 Hematocrit (%) Date Value 09/07/2023 41.4 MCV (fL) Date Value 09/07/2023 89.6 MCH (pg) Date Value (more content not included)... [facility] NURSING PROGon 09-11-2023 NURSING PROG HNO ID: [id number] Author: Yazmin Heard RN Service: Nursing Author Type: Registered Nurse Type: Nursing Progress Note Filed: 09/11/2023 7:22 PM Note Text: Other: pt arrived to unit with at bedside. Reported that she was incontinent, did not use assistive device but needed to use bathroom. With PCNA, ambulated pt to bathroom. Pt had difficulty ambulating. Weak. Educated that both PT and OT would see pt tomorrow and make recommendations. Pt resting comfortably. [facility] OPERATIVE NOon 09-11-2023 OPERATIVE NO HNO ID: [id number] Author: Tony Combs MD Service: Orthopaedic Surgery Author Type: Physician Type: Operative Report Filed: 09/12/2023 9:49 AM Note Text: [facility] - Operative Report QING FISCHER Lesley : 1945 AGE: 78. SEX: F PATIENT TYPE: I HOSP SVC: Surgical LOCATION: [id number] ATTENDING PHYSICIAN: Tony Combs M.D. CSN NUMBER: [id number] DATE OF SURGERY/PROCEDURE: 09/11/2023 INCISION/PROCEDURE START TIME: 1340 hours. INCISION CLOSE/PROCEDURE END TIME: 1650 hours. 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 SURGEON: Tony Combs M.D. MACHINE PULLER: Dr. Mckeon. SURGERY/PROCEDURE: Revision surgery performed through an altered surgical field. All components should have a -22 modifier for reverse total shoulder replacement arthroplasty, extensive capsular release of the left shoulder, bone graft of the eroded glenoid, open reduction and internal fixation with bone graft of the left acromion fracture nonunion using a tension band reconstruction system and repair of the posterior and anterior rotator cuff and a shoulder with massive rotator cuff tear and erosion. ANESTHESIA: Regional block anesthesia by the Anesthesia team with general anesthesia by the Anesthesia team. LOCATION: [place] [address]. 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 INDICATIONS FOR SURGERY: The patient is an active and youthful 78-year-old woman who has had chronic persistent shoulder pain with recurrent rotator cuff tear following prior reconstruction, rotator cuff tear arthropathy, pseudoparalysis, pain down the long tendon of the biceps with rupture of the biceps and capsular contracture all involving the left shoulder with erosion of the central portion of the glenoid, all of which has failed to respond to prolonged conservative management. DESCRIPTION OF PROCEDURE: The patient was brought to the operating room. After induction of adequate regional block anesthesia, she was positioned on the operating table in supine position and given a general inhalation anesthesia. She was repositioned in the semisitting beach chair position. Examination of the left shoulder under anesthesia revealed 85 degrees of forward elevation, 10 degrees of external rotation, and 0 degrees of internal rotation with crepitus through the very limited arc of motion that was appreciated. At this point, the entire left upper extremity, left shoulder, and chest quadrant were scrubbed, prepped and draped in the usual fashion. Attention was turned to the anterior aspect of the left shoulder. Here, a 12 cm longitudinal oblique deltopectoral incision was made and blunt dissection was used to carry down to the deltopectoral interval. The cephalic vein was seemed to have 3 separate major trunks, two of which transitioned medial, these (more content not included)... [facility] SURGICAL PATHOLOGYon CASE REPORT [facility] Comment on above: Order Comment: Speci men Type: SPECIMEN FROM BONEOrdering Facility: [facility] Address: [address] [place] [address] Result Comment: Surg [facility] Pathology Report Case: [id number] Authorizing Provider: Tony Combs MD Collected: 09/11/2023 02:30 PM Ordering Location: [facility] Received: 09/12/2023 02:27 PM Operating Room Pathologist: Magdi Alfredo MD Specimens: A) - HUMERAL HEAD LEFT, bone & tissue left shoulder joint B) - BONE RESECTION, acromium non-union bone left Performed By: #### S ####[facility] LABCLIA [id number] [address] OF [facility] CLINICAL HISTORY [facility] Comment on above: Order Comment: Speci men Type: SPECIMEN FROM BONEOrdering Facility: [facility] Address: [address] [place] [address] Result Comment: Pre- op diagnosis: Closed displaced fracture of acromial process, unspecified laterality, sequela [S42.123S] Rotator cuff tear arthropathy of left shoulder [M75.102, M12.812] Injury of tendon of long head of biceps, left, initial encounter [S46.102A] Contracture of shoulder, left [M24.512] Performed By: #### S ####[facility] LABCLIA [id number] [address] FINAL DIAGNOSIS [facility] Comment on above: Order Comment: Speci men Type: SPECIMEN FROM BONEOrdering Facility: [facility] Address: [address] [place] [address] Result Comment: A. L eft shoulder, arthroplasty: - Degenerative joint disease. B. 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 Performed By: #### S ####[facility]CLIA [id number] [address] OF [facility] FINAL PERFORMING LAB [facility] Comment on above: Order Comment: Speci men Type: SPECIMEN FROM BONEOrdering Facility: [facility] Address: [address] [place] [address] Result Comment: Diag nostic interpretation performed at [facility], [address] [place] [address] CLIA# [id number] Plate Glass Installer Helper: Anthony Bruno M.D. Performed By: #### S ####[facility] LABCLIA [id number] [address] [place] GROSS DESCRIPTION Normal [facility] Comment on above: Order Comment: Speci men Type: SPECIMEN FROM BONEOrdering Facility: [facility] Address: [address] [place] [address] Result Comment: A. H UMERAL HEAD LEFT Received in formalin labeled with humeral head left, bone and tissue left shoulder joint are multiple irregular fragments of zhou-brown, firm bone resembling a humeral head aggregating to 6.4 x 5.0 x 2.7 cm. Recognizable articular surfaces are granular in appearance and demonstrate a focal area of eburnation measuring 1.2 x 0.7 cm. There is no osteophyte formation present. The bony cut surfaces are zhou-brown, firm and hemorrhagic in appearance. There are no lesions or areas of softening identified. A definitive fracture site is not grossly appreciated. Also present within the specimen container are multiple fragments of denton-pink rubbery soft tissue aggregating to 4.1 x 4.1 x 0.8 cm. Sectioning through these tissue fragments reveals rubbery, fibrous cut surfaces with no areas of induration or nodularity present. Combustion Engineer sections are submitted as follows: A1 soft tissue A2 articular and nonarticular surfaces following decalcification A3 possible fracture site with hemorrhagic bony cut surfaces B. BONE RESECTION Received in formalin labeled with bone resection, acromion nonunion bone left are multiple irregular fragments of zohu-brown, firm bone with attached soft tissue aggregating to 3.3 x 2.5 x 0.5 cm. Palpation reveals no areas of softening or necrosis present. The specimen is totally submitted in cassette B1 following decalcification. TLA September 12, 2023 5:15 PM Gross examination performed at [facility], [address] [place] [address] Performed By: #### S ####[facility]CLIA [id number] [address] [place] XR SHOULDER SPECIFY 1V LTon 09-11-2023 XR SHOULDER SPECIFY 1V LT * * *Final Report* * * DATE OF EXAM: Sep 11 2023 4:39PM GENNY 5256 - XR SHOULDER SPECIFY 1V LT / PROCEDURE REASON: Closed displaced fracture of acromial process * * * * Physician Interpretation * * * * Indication: Status post left shoulder arthroplasty Comparison: None A single view of the left shoulder is obtained. Satisfactory position of a left shoulder prosthesis. No fracture or dislocation is identified. There is soft tissue swelling and gas in the tissues consistent with recent surgery. IMPRESSION: Satisfactory postoperative appearance of left shoulder arthroplasty. Mechanics Supervisor: WILLIAM Transcribe Date/Time: Sep 12 2023 8:36A Dictated by : MIRI CHONG MD This examination was interpreted and the report reviewed and electronically signed by: MIRI CHONG MD on Sep 12 2023 8:38AM EST [id number] Normal [facility] Basic metabolic 2000 panelon 09-07-2023 Anion gap [Moles/Vol] 16 mmol/L Normal 9-18 [facility] Comment on above: Order Comment: Speci men Type: BLOOD SPECIMENOrdering Facility: [facility] Address: [address] [place] [address] Performed By: #### 2 4321-2 ####[facility] LABCLIA [id number] [place] [address] [place] Calcium [Mass/Vol] 9.8 mg/dL Normal 8.5-10.2 [facility] Comment on above: Order Comment: Speci men Type: BLOOD SPECIMENOrdering Facility: [facility] Address: [address] [place] [address] Performed By: #### 2 4321-2 ####[facility] LABCLIA [id number] [place] [address] [place] Chloride [Moles/Vol] 103 mmol/L Normal 97-105 [facility] Comment on above: Order Comment: Speci men Type: BLOOD SPECIMENOrdering Facility: [facility] Address: [address] [place] [address] Performed By: #### 2 4321-2 ####[facility] LABCLIA [id number] [place] [address] [place] CO2 [Moles/Vol] 22 mmol/L Normal 22-30 [facility] Comment on above: Order Comment: Speci men Type: BLOOD SPECIMENOrdering Facility: [facility] Address: [address] [place] [address] Performed By: #### 2 4321-2 ####[facility] [id number] [place] [address] [place] Creatinine [Mass/Vol] 0.73 mg/dL Normal 0.58-0.96 [facility] Comment on above: Order Comment: Speci men Type: BLOOD SPECIMENOrdering Facility: [facility] Address: [address] [place] [address] Performed By: #### 2 4321-2 ####[facility] [id number] [address] [place] Creatinine and Glomerular filtration rate.predicted panel (S/P/Bld) 83 mL/min/1.73m??? Normal >=60 [facility] Comment on above: Order Comment: Speci men Type: BLOOD SPECIMENOrdering Facility: [facility] Address: [address] [place] [address] Result Comment: Nuha mated Glomerular Filtration Rate (eGFR) is calculated using the 2020 CKD-EPI creatinine equation. This equation utilizes serum creatinine, sex, and age as parameters. The creatinine assay has traceable calibration to isotope dilution-mass spectrometry. Refer to KDIGO guidelines for clinical interpretation. In patients with unstable renal function, e.g. those with acute kidney injury, the eGFR may not accurately reflect actual GFR. Performed By: #### 2 4321-2 ####[facility] LABIA [id number] [place] [address] [place] Glucose [Mass/Vol] 84 mg/dL Normal 74-99 [facility] Comment on above: Order Comment: Speci men Type: BLOOD SPECIMENOrdering Facility: [facility] Address: [address] [place] [address] Result Comment: The [place] Diabetes Association (ADA) provides guidance for cutoff values for fasting glucose and random glucose. The ADA defines fasting as no caloric intake for at least 8 hours. Fasting plasma glucose results between 100 to 125 mg/dL indicate increased risk for diabetes (prediabetes). Fasting plasma glucose results greater than or equal to 126 mg/dL meet the criteria for diagnosis of diabetes. In the absence of unequivocal hyperglycemia, results should be confirmed by repeat testing. In a patient with classic symptoms of hyperglycemia or hyperglycemic crisis, random plasma glucose results greater than or equal to 200 mg/dL meet the criteria for diagnosis of diabetes. Reference: Standards of Medical Care in Diabetes 2016, [place] [employer] Association. Diabetes Care. 2016.39(Suppl 1). Performed By: #### 2 4321-2 ####[facility] LABIA [id number] [place] [address] [place] Potassium [Moles/Vol] 4.3 mmol/L Normal 3.7-5.1 [facility] Comment on above: Order Comment: Speci men Type: BLOOD SPECIMENOrdering Facility: [facility] Address: [address] [place] [address] Performed By: #### 2 4321-2 ####[facility] LABIA [id number] [place] [address] [place] Sodium [Moles/Vol] 141 mmol/L Normal 136-144 [facility] Comment on above: Order Comment: Laura jackson Type: BLOOD SPECIMENOrdering Facility: [facility] Address: [address] [place] [address] Performed By: #### 2 4321-2 ####[facility] LABIA [id number] [place] [address] [place] Urea nitrogen [Mass/Vol] 14 mg/dL Normal 7-21 [facility] Comment on above: Order Comment: Speci men Type: BLOOD SPECIMENOrdering Facility: [facility] Address: [address] [place] [address] Performed By: #### 2 4321-2 ####[facility] LABIA [id number] [place] [address] [place] CBC W Auto Differential pane l (Bld)on 09-07-2023 Basophils (Bld) [#/Vol] 0.03 10*3/uL Normal <0.11 [facility] Comment on above: Order Comment: Speci men Type: BLOOD SPECIMENOrdering Facility: [facility] Address: [address] [place] [address] Performed By: #### 5 7021-8 ####[facility] LABCLIA [id number] [place] [address] [place] Basophils/100 WBC (Bld) 0.4 % Normal [facility] Comment on above: Order Comment: Speci men Type: BLOOD SPECIMENOrdering Facility: [facility] Address: [address] [place] [address] Performed By: #### 5 7021-8 ####[facility]CLIA [id number] [place] [address] [place] Differential cell count method Nom (Bld) Auto Normal [facility] Comment on above: Order Comment: Speci men Type: BLOOD SPECIMENOrdering Facility: [facility] Address: [address] [place] [address] Performed By: #### 5 7021-8 ####[facility] LABCLIA [id number] [place] [address] [place] Eosinophils (Bld) [#/Vol] 0.10 10*3/uL Normal <0.46 [facility] Comment on above: Order Comment: Speci men Type: BLOOD SPECIMENOrdering Facility: [facility] Address: [address] [place] [address] Performed By: #### 5 7021-8 ####[facility] LABCLIA [id number] [place] [address] [place] Eosinophils/100 WBC (Bld) 1.3 % Normal [facility] Comment on above: Order Comment: Speci men Type: BLOOD SPECIMENOrdering Facility: [facility] Address: [address] [place] [address] Performed By: #### 5 7021-8 ####[facility] LABCLIA [id number] [place] [address] [place] Erythrocyte distribution width (RBC) [Ratio] 14.1 % Normal 11.5-15.0 [facility] Comment on above: Order Comment: Speci men Type: BLOOD SPECIMENOrdering Facility: [facility] Address: [address] [place] [address] Performed By: #### 5 7021-8 ####[facility] LABCLIA [id number] [place] [address] [place] Hematocrit (Bld) [Volume fraction] 41.4 % Normal 36.0-46.0 [facility] Comment on above: Order Comment: Speci men Type: BLOOD SPECIMENOrdering Facility: [facility] Address: [address] [place] [address] Performed By: #### 5 7021-8 ####[facility] LABIA [id number] [place] [address] [place] Hemoglobin (Bld) [Mass/Vol] 13.2 g/dL Normal 11.5-15.5 [facility] Comment on above: Order Comment: Speci men Type: BLOOD SPECIMENOrdering Facility: [facility] Address: [address] [place] [address] Performed By: #### 5 7021-8 ####[facility] LABCLIA [id number] [place] [address] [place] Immature granulocytes (Bld) [#/Vol] 10*3/uL Normal <0.10 [facility] Comment on above: Order Comment: Speci men Type: BLOOD SPECIMENOrdering Facility: [facility] Address: [address] [place] [address] Performed By: #### 5 7021-8 ####[facility] LABIA [id number] [place] [address] [place] Immature granulocytes/100 WBC (Bld) 0.3 % Normal [facility] Comment on above: Order Comment: Speci men Type: BLOOD SPECIMENOrdering Facility: [facility] Address: [address] [place] [address] Performed By: #### 5 7021-8 ####[facility] LABCLIA [id number] [place] [address] [place] Lymphocytes (Bld) [#/Vol] 1.94 10*3/uL Normal 1.00-4.00 [facility] Comment on above: Order Comment: Speci men Type: BLOOD SPECIMENOrdering Facility: [facility] Address: [address] [place] [address] Performed By: #### 5 7021-8 ####[facility] LABCLIA [id number] [place] [address] [place] Lymphocytes/100 WBC (Bld) 24.4 % Normal [facility] Comment on above: Order Comment: Speci men Type: BLOOD SPECIMENOrdering Facility: [facility] Address: [address] [place] [address] Performed By: #### 5 7021-8 ####[facility] LABCLIA [id number] [place] [address] [place] MCH (RBC) [Entitic mass] 28.6 pg Normal 26.0-34.0 [facility] Comment on above: Order Comment: Speci men Type: BLOOD SPECIMENOrdering Facility: [facility] Address: [address] [place] [address] Performed By: #### 5 7021-8 ####[facility] LABCLIA [id number] [place] [address] [place] MCHC (RBC) [Mass/Vol] 31.9 g/dL Normal 30.5-36.0 [facility] Comment on above: Order Comment: Speci men Type: BLOOD SPECIMENOrdering Facility: [facility] Address: [address] [place] [address] Performed By: #### 5 7021-8 ####[facility] LABCLIA [id number] [place] [address] [place] MCV (RBC) [Entitic vol] 89.6 fL Normal 80.0-100.0 [facility] Comment on above: Order Comment: Speci men Type: BLOOD SPECIMENOrdering Facility: [facility] Address: [address] [place] [address] Performed By: #### 5 7021-8 ####[facility] LABCLIA [id number] [place] [address] [place] Monocytes (Bld) [#/Vol] 0.99 10*3/uL High <0.87 [facility] Comment on above: Order Comment: Speci men Type: BLOOD SPECIMENOrdering Facility: [facility] Address: [address] [place] [place] [address] Performed By: #### 5 7021-8 ####[facility] [id number] [place] [address] [place] Monocytes/100 WBC (Bld) 12.5 % Normal [facility] Comment on above: Order Comment: Speci men Type: BLOOD SPECIMENOrdering Facility: [facility] Address: [address] [place] [address] Performed By: #### 5 7021-8 ####[facility] [id number] [place] [address] [place] Neutrophils (Bld) [#/Vol] 4.87 10*3/uL Normal 1.45-7.50 [facility] Comment on above: Order Comment: Speci men Type: BLOOD SPECIMENOrdering Facility: [facility] Address: [address] [place] [address] Performed By: #### 5 7021-8 ####[facility] LABCL[facility] [id number] [place] [address] [place] Neutrophils/100 WBC (Bld) 61.1 % Normal [facility] Comment on above: Order Comment: Speci men Type: BLOOD SPECIMENOrdering Facility: [facility] Address: [address] [place] [address] Performed By: #### 5 7021-8 ####[facility] LABCLIA [id number] [place] [address] [place] Nucleated RBC (Bld) [#/Vol] 10*3/uL Normal <0.01 [facility] Comment on above: Order Comment: Speci men Type: BLOOD SPECIMENOrdering Facility: [facility] Address: [address] [place] [address] Performed By: #### 5 7021-8 ####[facility] LABCLIA [id number] [place] [address] [place] Nucleated RBC/100 WBC (Bld) [Ratio] 0.0 /100 WBC Normal [facility] Comment on above: Order Comment: Speci men Type: BLOOD SPECIMENOrdering Facility: [facility] Address: [address] [place] [address] Performed By: #### 5 7021-8 ####[facility] [id number] [place] [address] [place] Platelet mean volume (Bld) [Entitic vol] 9.4 fL Normal 9.0-12.7 [facility] Comment on above: Order Comment: Speci men Type: BLOOD SPECIMENOrdering Facility: [facility] Address: [address] [place] [address] Performed By: #### 5 7021-8 ####[facility] LABCLIA [id number] [place] [address] [place] Platelets (Bld) [#/Vol] 395 10*3/uL Normal 150-400 [facility] Comment on above: Order Comment: Speci men Type: BLOOD SPECIMENOrdering Facility: [facility] Address: [address] [place] [address] Performed By: #### 5 7021-8 ####[facility] LABCLIA [id number] [place] [id number] [place] RBC (Bld) [#/Vol] 4.62 10*6/uL Normal 3.90-5.20 [facility] Comment on above: Order Comment: Speci men Type: BLOOD SPECIMENOrdering Facility: [facility] Address: [address] [place] [address] Performed By: #### 5 7021-8 ####[facility]CL[facility] [id number] [place] [address] [place] WBC (Bld) [#/Vol] 7.95 10*3/uL Normal 3.70-11.00 [facility] Comment on above: Order Comment: Speci men Type: BLOOD SPECIMENOrdering Facility: [facility] Address: [address] [place] [address] Performed By: #### 5 7021-8 ####[facility]CL[facility] [id number] [place] [address] [place] [id number] 09-07-2023 ECG01 Ventricular Rate : 9 6 BPM Atrial Rate : 96 BPM P-R Interval : 148 ms QRS Duration : 118 ms Q-T Interval : 390 ms QTC Calculation(Bazett) : 492 ms Calculated P Dolph : 24 degrees Calculated R Dolph : 59 degrees Calculated T Dolph : 12 degrees NORMAL SINUS RHYTHM POSSIBLE LEFT ATRIAL ENLARGEMENT COMPLETE RIGHT BUNDLE BRANCH BLOCK ABNORMAL ECG Confirmed by NAFISA KAHN MD ([id number]) on 09/13/2023 4:18:57 PM NAME : QING FISCHER PID : [id number] : 1945 Gender : Female Race : ORD : Procedure Date : Sep 07 2023 15:04:24 Edit Date : Sep 13 2023 16:18:58 Diagnosis: NORMAL SINUS RHYTHM POSSIBLE LEFT ATRIAL ENLARGEMENT COMPLETE RIGHT BUNDLE BRANCH BLOCK ABNORMAL ECG Confirmed by NAFISA KAHN MD ([id number]) on 09/13/2023 4:18:57 PM Test Reason : Location : 145 : LOCARD Overread By : NAFISA KAHN MD Edited By : NAFISA KAHN MD Referred By : KRISTI VASQUEZ Acquired by : am, Normal [facility] HISTORY PHYSICALon HISTORY PHYSICAL HNO ID: [id number] Author: Kristi Vasquez APRN.[employer] Service: ? Author Type: Nurse Practitioner Type: HANDP Filed: 09/08/2023 8:26 AM Note Text: HISTORY AND PHYSICAL EXAMINATION SERVICE DATE: 09/07/2023 SERVICE TIME: 2:52 PM PRIMARY CARE PHYSICIAN: Nona Mcknight MD REASON FOR VISIT: Qing Fischer is a 78 year old female who is scheduled for REVERSE TOTAL SHOULDER ARTHROPLASTY - Left with Tony Combs MD on 09/11/2023 at the request of Dr. Tony Combs for consultation. My final recommendation will be communicated back to the requesting physician by way of shared medical record or letter. The patient has the following: ACTIVE PROBLEM LIST Hypothyroidism Oab (Overactive Bladder) Gastroesophageal Reflux Disease Without Esophagitis Subjective CHIEF COMPLAINT: Left shoulder pain HPI: This is a 78 year old female presents with left shoulder pain that has been getting progressively worse. The patient states the pain is interfering with daily activities and sleep. Conservative measures have been ineffective. Patient has opted to proceed with above reccommended surgery and is here today for preanesthesia consultation. PAST MEDICAL HISTORY Diagnosis Date Esophageal reflux on nexium Unspecified sinusitis (chronic) PAST SURGICAL HISTORY Procedure Laterality Date EGD 2006 OTHER ACCESSORY cervical cryotherapy 1980s, nml pap since then PUNCTURE ASPIRATION CYST BREAST 1992 x2, many years ago FAMILY HISTORY Problem Relation Age of Onset Hypertension Father Coronary Artery Disease Father Hypertension Sister Coronary Artery Disease Sister [place] in 30s Anesthesia Problems No Family History SOCIAL HISTORY: Social History Tobacco Use Smoking status: Unknown Substance Use Topics Alcohol use: Yes Comment: 1-2 glasses of wine with dinner most nights Drug use: No MEDICATIONS: Prior to Admission medications as of 09/08/23 0816 Medication Sig Last Dose Taking mupirocin (BACTROBAN) 2 % ointment two times a day for 5 days. Apply 0.5 inch with cotton swab (Q-tip) to each nostril in the morning and evening for 5 days prior to and including day of surgery. Yes levothyroxine (SYNTHROID) 88 mcg tablet Take 1 tablet by mouth every afternoon. Yes liothyronine (CYTOMEL) 5 mcg tablet Yes oxybutynin (DITROPAN) 2.5 mg tablet Take 1 tablet by mouth every afternoon. Yes multivitamins w-minerals/lut(CENTRAL SRIKANTH SENIOR-LUTEIN TAB) Yes calcium/mag oxide/vitamin d3(CORAL CALCIUM PLUS 250 MG-125 MG-200 UNIT CAP) Yes glucosamine hcl/msm(GLUCOSAMINE MSM 1,500 MG-500 MG/30 ML ORAL LIQUID) Yes PSEUDOEPHEDRINE 30 MG TAB No medication comments found. CURRENT ALLERGIES: ALLERGIES Allergen Reactions Codeine Mental Status Change Tylenol with codeine. Hot/ flushed. Amoxicillin Rash Nickel Rash Covid Immunization Dates Covid-19 Vaccine (Series Information) Completed 06/26/2023 Imm Admin: COVID-19 vaccine, age 12+ yr, 2022- season (Sequenta) 07/18/2022 Imm Admin: COVID-19 vaccine, age 12+ yr, bivalent (Real Food Real Kitchens-BIONTLegal Shine) 06/24/2021 Imm Admin: COVID-19 original vaccine, age 12+ yr, monovalent (PFIZER-BIONTECH - PURPLE TOP) 11/15/2020 Imm Admin: COVID-19 original vaccine, age 12+ yr, monovalent (PFIZER-BIONTECH - PURPLE TOP) 10/25/2020 Imm Admin: COVID-19 original vaccine, age 12+ yr, monovalent (PFIZER-BIONTECH - PURPLE TOP) Only the first 5 history entries have been loaded, but more history exists. REVIEW OF SYSTEMS: PAIN ASSESSMENT: General: No weight loss, malaise or fevers. Neuro: No history of TIA's, stroke, SOFTWARE SUPPORT ENGINEER tumor, impaired sensorium, hemiplegia, paraplegia or quadraplegia. No neurological symptoms or problems. Respiratory: No history of current cough or dyspnea, or pneumonia in the past 6 weeks. No history of respiratory/pulmonary symptoms or problems. Cardiovascular: No history of HTN requiring medication, no history of angina, CHF, [place], cardiac surgery or stents. Denies rest pain, gangrene or revascularization/ampu tation for PVD. No history of cardiovascular symptoms or problems. GI: No history of GI symptoms or problems. No history of esophageal varices, recent ascites, or ETOH greater than 2 drinks per day. + GERD : No history of dysuria, frequency or incontinence,, stones or chronic kidney disease Endocrine: Hypothyroidism Hematology: No history of bleeding or clotting disorder. Pt is not taking anti-coagulation or platelet medications. No history of hematological symptoms or problems. Oncology: No history of CA metastasis, chemo within 30 days, or radiotherapy within 90 days. Has not lost 10% of body wt in 6 months. No history of oncological symptoms or problems. Psych: No history of psychiatric symptoms or problems. Musculoskeletal: See HPI Skin: Negative for lesions, rash and itching. Objective PHYSICAL EXAM: VITALS: BP 158/69 Pulse 97 Temp (Src) 97.7 (Temporal) Resp 16 Ht 5' (more content not included)... Normal [facility] STAPH AUREUS PCRon S. aureus and MRSA panel MOISES+probe (Nose) Normal Negative [facility] Comment on above: Order Comment: Laura jackson Type: SWAB OF INTERNAL NOSEOrdering Facility: [facility] Address: [address] [place] [address] Result Comment: Nega tive for Staphylococcus aureus by PCR. Negative for MRSA by PCR Performed By: #### S APCR ####[facility] [id number] [place] [address] [place] TYPE AND SCREEN,30 DAYon ABO O Normal [facility] Comment on above: Order Comment: Laura jackson Type: BLOOD SPECIMEN [facility] Address: [address] [place] [address] Performed By: #### T SCR30 #### [facility] CLIA [id number] [address] [facility] [place] [address] [place] HISTORICAL AB SCR STATUS Negative Normal [facility] Comment on above: Order Comment: Laura jackson Type: BLOOD SPECIMEN [facility] Address: [address] [place] [address] Performed By: #### T SCR30 #### [facility] CLIA [id number] [address] [place] [address] [place] Rh Nom (Bld) Positive Normal [facility] Comment on above: Order Comment: Laura jackson Type: BLOOD SPECIMEN [facility] Address: [address] [place] [address] Performed By: #### T SCR30 #### [facility] BLOOD [facility] [id number] [address] [id number] [place] CNOVon 08-29-2023 CNOV Office Visit (ORTL ) QING FISCHER ([id number]) 1945 F Date Time Provider Department 08/29/23 1:15 PM TONY COMBS [facility] During your visit today, we recorded the following information about you: Tony Combs MD 08/30/2023 2:03 PM Signed [facility] - CLINIC NOTE DEPARTMENT OF ORTHOPAEDICS Evaluation with Tony Combs Jr., M.D. Patient Name: QING FISCHER Clinic No: [id number] : 1945 Qing Fischer is a pleasant and active 78 year old female who presents for follow up of her left shoulder rotator cuff arthropathy. She was last seen on 07/18/2023, with a tentative plan to proceed with a left reverse total shoulder arthroplasty. A CT was obtained for preoperative planning and to better delineate her bony anatomy. Today, she endorses ongoing left shoulder pain. Her symptoms are overall unchanged compared to her last appointment. On examination of the left shoulder, there is no gross deformity. She has 0 degrees of active forward flexion and 90 degrees of passive forward flexion. She has 0 degrees of active external rotation. CT of the left shoulder was obtained 08/01/2023 and personally reviewed. Imaging demonstrates severe left rotator cuff arthropathy with superior subluxation of the humeral head. There is fragmentation of the left acromion. Qing Fischer is a pleasant and active 78 year old female who presents for follow up of her left shoulder rotator cuff arthropathy. We again had a lengthy discussion regarding the patient's presentation and symptomatology. We showed the patient and her family her xrays today. We discussed options for operative and nonoperative management. Operative management would consist of left reverse total shoulder arthroplasty, biceps tenodesis vs tenolysis, and open reduction and internal fixation of the left acromion. Nonopertive management would consist of activity modification, physical therapy, corticosteroid injections, and antiinflammatories. We discussed the risks and benefits of surgery, and no guarantees were made or implied. At this time, the patient would like to proceed with surgery. We did discuss that Dr. Combs is retiring at the end of November 2023, and she may proceed with surgery with him versus one of his colleagues. The patient would like to proceed with Dr. Combs. Surgery will include Reverse TSA, contracture release, biceps tenodesis, possible bone graft of glenoid, possible tendon transfer all involving the left shoulder. This will be performed under combined general 7 regional anaesthesia on an inpatiient basis A copy of this note will be sent to the patient's PCP Dr. Mcknihgt. Ms. Qing Fischer was seen in office today for orthopaedic evaluation. I personally have gone over the patient's updated electronic medical record and imaging studies. I've taken an updated history and performed a current physical examination. My findings have been recorded by my resident who accompanied me in this consultation above. I've gone over in detail the nature of the patient's pathology, the risks and benefits inherent in the surgery that we have discussed, the fact that I cannot provide any guarantees regarding surgery or surgical outcome as well as the need for postoperative protection and rehabilitation and follow-up. The patient understands and wishes to proceed with surgery. This will be scheduled in the near future at the patient's request. A copy of this consultation report has been sent to the patient as well as the patient's primary care physician, Dr. Mcknight. Tony Combs MD The patient was offered a surgery/procedure at a [facility] facility. The surgeon/proceduralist and patient have discussed in detail the risk of exposure to and/or potential harm posed by the COVID-19 virus with having a surgery/procedure at this time versus the risk of delaying the surgery/procedure. It is not possible to know either the risk of delaying the surgery or procedure or chance of getting an infection with perfect accuracy, but a joint decision was made between the patient and the surgeon/proceduralist to proceed at this time with the scheduled surgery/procedure as indicated on the consent form. Tony Combs MD Recorded by: Luis Barney MD (scribe) Allergies As of Date: 08/29/2023 Noted Allergy Reaction TYLENOL #3 (CODEINE) 12/11/2007 1 - Mental Status Change Date Reviewed: 08/29/2023 Reviewed by: Francisco Saez Ma - Fully Assessed Reason for Visit: Follow Up [171] Cmt: Primary Visit Diagnosis:Rotator cuff tear arthropathy of left shoulder [M75.102, M12.812] Other Visit Diagnoses:Closed displaced fracture of acromial process, unspecified laterality, sequela [S42.123S] Nontraumatic complete tear of rotator cuff, left [M75.122] Injury of tendon of long head of biceps, left, initial encou (more content not included)... [facility] CT 3D POST PROCESSINGon 11-0 CT 3D POST PROCESSING * * *Final Report* * * DATE OF EXAM: Aug 01 2023 12:37PM K[facility] 0563 - CT 3D POST PROCESSING / PROCEDURE REASON: multiple diagnoses * * * * Physician Interpretation * * * * EXAMINATION: CT SHOULDER WO IVCON LT, CT 3D POST PROCESSING CLINICAL INFORMATION: 78 years old Female with Rotator cuff tear arthropathy of left shoulder Rotator cuff tear arthropathy of left shoulder. Preop planning. TECHNIQUE: Noncontrast spiral CT scanning of LEFT shoulder was performed in axial plane. Coronal and sagittal reconstructions were obtained from the original data set. THREE-DIMENSIONAL IMAGING: Three dimensional imaging was created on a dedicated stand-alone 3D workstation and supervised and reviewed by the interpreting physician. COMPARISON: Left shoulder radiographs 07/18/2023 CT Dose-Length Product (DLP): 386 mGy*cm. Orthopedic Hardware: None CT Dose Reduction Employed: Automated exposure control(AEC) and iterative recon RESULT: Marked superior subluxation of the humeral head with humeral head articulating with the undersurface of the acromion, bony remodeling of the humeral head with sclerosis and cystic changes and bony remodeling and fragmentation of the acromion secondary to chronic full-thickness rotator cuff tear with rotator cuff arthropathy. There is marked atrophy of the supraspinatus, infraspinatus and teres minor muscles and mild atrophy of the subscapularis muscle. Mild glenohumeral and moderate acromioclavicular osteoarthritis. No acute fracture. Osteopenia. Incompletely evaluated severe degenerative changes in the cervical spine. Partially imaged large hiatal hernia. Atherosclerotic calcification of the thoracic aorta. Mild coronary artery atherosclerotic calcification. Trim Crew Supervisor images demonstrate reverse RIGHT total shoulder arthroplasty. IMPRESSION: Severe LEFT rotator cuff arthropathy. Mechanics Supervisor: PSCB Transcribe Date/Time: Aug 03 2023 2:24P Dictated by : SERG LÓPEZ DO This examination was interpreted and the report reviewed and electronically signed by: SERG LÓPEZ DO on Aug 03 2023 2:46PM EST [id number] [facility] CT SHOULDER WO IVCON LTon CT SHOULDER WO IVCON LT * * *Final Report* * * DATE OF EXAM: Aug 01 2023 12:37PM [facility] 0089 - CT SHOULDER WO IVCON LT / PROCEDURE REASON: multiple diagnoses * * * * Physician Interpretation * * * * EXAMINATION: CT SHOULDER WO IVCON LT, CT 3D POST PROCESSING CLINICAL INFORMATION: 78 years old Female with Rotator cuff tear arthropathy of left shoulder Rotator cuff tear arthropathy of left shoulder. Preop planning. TECHNIQUE: Noncontrast spiral CT scanning of LEFT shoulder was performed in axial plane. Coronal and sagittal reconstructions were obtained from the original data set. THREE-DIMENSIONAL IMAGING: Three dimensional imaging was created on a dedicated stand-alone 3D workstation and supervised and reviewed by the interpreting physician. COMPARISON: Left shoulder radiographs 07/18/2023 CT Dose-Length Product (DLP): 386 mGy*cm. Orthopedic Hardware: None CT Dose Reduction Employed: Automated exposure control(AEC) and iterative recon RESULT: Marked superior subluxation of the humeral head with humeral head articulating with the undersurface of the acromion, bony remodeling of the humeral head with sclerosis and cystic changes and bony remodeling and fragmentation of the acromion secondary to chronic full-thickness rotator cuff tear with rotator cuff arthropathy. There is marked atrophy of the supraspinatus, infraspinatus and teres minor muscles and mild atrophy of the subscapularis muscle. Mild glenohumeral and moderate acromioclavicular osteoarthritis. No acute fracture. Osteopenia. Incompletely evaluated severe degenerative changes in the cervical spine. Partially imaged large hiatal hernia. Atherosclerotic calcification of the thoracic aorta. Mild coronary artery atherosclerotic calcification. Trim Crew Supervisor images demonstrate reverse RIGHT total shoulder arthroplasty. IMPRESSION: Severe LEFT rotator cuff arthropathy. Mechanics Supervisor: WILLIAM Transcribe Date/Time: Aug 03 2023 2:24P Dictated by : SERG LÓPEZ DO This examination was interpreted and the report reviewed and electronically signed by: SERG LÓPEZ DO on Aug 03 2023 2:46PM EST [id number] [facility] 07-18-2023 [facility] Office Visit ([facility] ) QING FISCHER ([id number]) 1945 F Date Time Provider Department 07/18/23 11:45 AM TONY COMBS [facility] During your visit today, we recorded the following information about you: Weight Height 62.1 kg 1.524 m Tony Combs MD 07/22/2023 10:43 AM Signed [facility] - CLINIC NOTE DEPARTMENT OF ORTHOPAEDICS Evaluation with Tony Combs Jr., M.D. Patient Name: QING Sutton AALIYAH [facility] No: [id number] : 1945 This is an active 78 year old female who reports left shoudler pain.and complete loss of active mobility.She is referred for consultation by her PCP, Dr. Mcknight . She reports a remote fall resulting in injury. Approximately 3 years ago she sought care and had a failed RTCR on her left shoulder. She was referred to Dr. Hilario and had a right reverse total shoulder with lat transfer 2 years ago. She is seeking a second opinion as Dr. Hilario does not accept medicare. Allergies: Tylenol #3 [Codeine] Current Outpatient Medications Medication Sig estradiol(VAGIFEM 25 MCG VAGINAL TAB) Insert one(1) tablet vaginally twice weekly. IBUPROFEN 600 MG TAB 1 Tab ORAL EVERY 6 HOURS NEEDED multivitamins w-minerals/lut(CENTRAL SRIKANTH SENIOR-LUTEIN TAB) calcium/mag oxide/vitamin d3(CORAL CALCIUM PLUS 250 MG-125 MG-200 UNIT CAP) ubidecarenone(CO Q-10 10 MG CAP) grape seed extract(GRAPE SEED 25 MG CAP) glucosamine hcl/msm(GLUCOSAMINE MSM 1,500 MG-500 MG/30 ML ORAL LIQUID) PSEUDOEPHEDRINE 30 MG TAB No current facility-administered medications for this visit. PAST MEDICAL HISTORY Diagnosis Date Esophageal reflux on nexium Unspecified sinusitis (chronic) FAMILY HISTORY Problem Relation Age of Onset Hypertension Father Hypertension Sister Coronary Artery Disease Father Coronary Artery Disease Sister [place] in 30s PAST SURGICAL HISTORY Procedure Laterality Date ASPIRATION BREAST CYST 1992 x2, many years ago EGD 2006 OTHER ACCESSORY cervical cryotherapy 1980s, nml pap since then EXAM: Is alert and oriented and demonstrates good balance and gait. She does not demonstrate any signs of central nervous system dysfunction or cervical radiculopathy or peripheral neuropathy Well healed arthroscopic incisions of the left shoulder. TTP over the acromion, biceps tendon, and the rotator cuff foot print. 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 No ability to ER. She has IR to her lumbar spine and still has good subscapularis strength. She is distally neurovascularly intact. IMAGING: Multiple views of the left shoulder demonstrate severe rotator cuff arthropathy with acromion fracture/nonunion. There is significant inferior humeral osteophyte. IMPRESSION: Left rotator cuff arthropathy with acromion fracture/nonunion, left, capsular contracture left shoulder, right shoulder demonstrates reverse shoulder arthroplasty with sense of instability but without stephanie dislocation. X-rays obtained today show a very large diameter implant for the patient's small size and the glenosphere appears to be somewhat dorsally angulated without stephanie dissociation. RECOMMENDATION: We discussed the nature and etiology of her pathology. Specifically discussed the only definitive management of this would be reverse total shoulder arthroplasty. Additionally we did discuss that in this event ORIF of the coming fracture/nonunion would need to occur. At this time we would like to obtain a CT to better delineate the bony anatomy. Additionally we will obtain imaging of her right shoulder. She will see me back in this is been obtained. Recorded by: Barrington Freitas DO Referring Provider: SELF [200] Allergies As of Date: 07/18/2023 Noted Allergy Reaction TYLENOL #3 (CODEINE) 12/11/2007 1 - Mental Status Change Date Reviewed: 07/18/2023 Reviewed by: Shahzad Leon - Fully Assessed Reason for Visit: New [[id number]] Primary Visit Diagnosis:Rotator cuff tear arthropathy of left shoulder [M75.102, M12.812] Other Visit Diagnoses:Chronic right shoulder pain [M25.511, G89.29] Nontraumatic complete tear of rotator cuff, left [M75.122] Injury of tendon of long head of biceps, left, initial encounter [S46.102A] Closed displaced fracture of acromial process, unspecified laterality, sequela [S42.123S] Order(s):CT SHOULDER WO IVCON LEFT [[id number]] Order #: [id number] CT 3D POST PROCESSING [[id number]] Order #: [id number] FUTURE REFER TO PACC - PRE ANESTHESIA CONSULTATION CLINIC [[id number]] Order #: [id number]: 1 FUTURE XR SHOULDER GENERAL 3V OR MORE AP/TRUE AP/OTHER RIGHT [[id number]] Order #: [id number] FUTURE Prescriptions as of 07/22/2023 - estradiol(VAGIFEM 25 MCG VAGINAL TAB) Insert one(1) tablet vaginally twice weekly. - IBUPROFEN 600 MG TAB 1 Tab ORAL EVERY 6 HOURS NEEDED - multivitamins w-minerals/lut (more content not included)... [facility] XR SHLDR >/=3V AP/JULIETA AP/OTH R LTon 07-18-2023 XR SHLDR >/=3V AP/JULIETA AP/OTHR LT * * *Final Report* * * DATE OF EXAM: Jul 18 2023 11:31AM LUX 5252 - XR SHLDR >/=3V AP/JULIETA AP/OTHR LT / PROCEDURE REASON: Pain * * * * Physician Interpretation * * * * EXAMINATION / TECHNIQUE: XR SHLDR >/=3V AP/JULIETA AP/OTHR LT, XR SHLDR >/=3V AP/JULIETA AP/OTHR RT PATIENT/TECHNOLOGIST PROVIDED HISTORY: pt sts chronic shoulder pain (accession [id number]), RT SHOULDER PAIN/REPLACED 14 MONTHS AGO (accession [id number]) CLINICAL INFORMATION ( PROVIDED BY ORDERING CLINICIAN) : Pain COMPARISON: RESULT: Right shoulder: Reverse right total shoulder arthroplasty. There is no periprosthetic fracture or lucency. No acute fracture or dislocation. No malalignment. Left shoulder: Advanced left to rotator cuff arthropathy with complete acromiohumeral height loss, prominent superior subluxation of the humeral head, and extensive bony remodeling of the acromion such that it is now fragmented, chronic in appearance. None of the fractures appear acute. The articulating aspect of the left glenohumeral joint along the superior glenoid and mid humeral head appears to demonstrate at least moderate to severe joint space narrowing with osteophytes and some subchondral degenerative changes. IMPRESSION: Reverse right total shoulder arthroplasty without complication. Advanced left shoulder rotator cuff arthropathy with associated acromial fragmentation from advanced remodeling. Mechanics Supervisor: WILLIAM Transcribe Date/Time: Jul 20 2023 10:15P Dictated by : MARYANN SUAREZ MD This examination was interpreted and the report reviewed and electronically signed by: MARYANN SUAREZ MD on Jul 20 2023 10:17PM EST [id number] [facility] XR SHLDR >/=3V AP/JULIETA AP/OTH R RTon 07-18-2023 XR SHLDR >/=3V AP/JULIETA AP/OTHR RT * * *Final Report* * * DATE OF EXAM: Jul 18 2023 12:37PM LUX 5253 - XR SHLDR >/=3V AP/JULIETA AP/OTHR RT / PROCEDURE REASON: multiple diagnoses * * * * Physician Interpretation * * * * EXAMINATION / TECHNIQUE: XR SHLDR >/=3V AP/JULIETA AP/OTHR LT, XR SHLDR >/=3V AP/JULIETA AP/OTHR RT PATIENT/TECHNOLOGIST PROVIDED HISTORY: pt sts chronic shoulder pain (accession [id number]), RT SHOULDER PAIN/REPLACED 14 MONTHS AGO (accession [id number]) CLINICAL INFORMATION ( PROVIDED BY ORDERING CLINICIAN) : Pain COMPARISON: RESULT: Right shoulder: Reverse right total shoulder arthroplasty. There is no periprosthetic fracture or lucency. No acute fracture or dislocation. No malalignment. Left shoulder: Advanced left to rotator cuff arthropathy with complete acromiohumeral height loss, prominent superior subluxation of the humeral head, and extensive bony remodeling of the acromion such that it is now fragmented, chronic in appearance. None of the fractures appear acute. The articulating aspect of the left glenohumeral joint along the superior glenoid and mid humeral head appears to demonstrate at least moderate to severe joint space narrowing with osteophytes and some subchondral degenerative changes. IMPRESSION: Reverse right total shoulder arthroplasty without complication. Advanced left shoulder rotator cuff arthropathy with associated acromial fragmentation from advanced remodeling. Mechanics Supervisor: WILLIAM Transcribe Date/Time: Jul 20 2023 10:15P Dictated by : MARYANN SUAREZ MD This examination was interpreted and the report reviewed and electronically signed by: MARYANN SUAREZ MD on Jul 20 2023 10:17PM EST [id number] Normal [facility] XR SHOULDER GENERAL 3V OR MO RE AP/TRUE AP/OTHER RIGHTon 07-18-2023 [facility] INSULINon 02-08-2023 Insulin 17.0 uIU/mL Normal 2.6-24.9 [facility] Comment on above: Performed By: #### C BC #### [facility] [address] [place] [address] Dr. Kashif Martinez OCC BLD IMMUNO SCREENon 01-23 OCCULT BLOOD Negative Normal NEGATIVE [facility] Comment on above: Performed By: #### O BSCRN #### [facility] [address] [address] [address] Kashif Martinez UA RANDOM W/MICROSCOPICon BACTERIA TRACE Abnormal NONE SEEN [facility] Comment on above: Performed By: #### U AMIC #### [facility] [address] [address] [address] Kashif Martinez Bilirubin Ql (U) Negative Normal NEGATIVE [facility] Comment on above: Performed By: #### U AMIC #### [facility] [address] [address] [address] Kashif Martinez CAST NONE SEEN Normal NONE SEEN [facility] Comment on above: Performed By: #### U AMIC #### [facility] [address] [address] [address] Kashif Martinez Clarity (U) CLEAR Normal CLEAR [facility] Comment on above: Performed By: #### U AMIC #### [facility] [address] [address] [address] Kashif Martinez Color (U) LT. YELLOW Normal YELLOW [facility] Comment on above: Performed By: #### U AMIC #### [facility] [address] [address] [address] Kashif Martinez Crystals LM Nom (Urine sed) NONE SEEN Normal NONE SEEN [facility] Comment on above: Performed By: #### U AMIC #### [facility] [address] [address] [address] Kashif Martinez Epithelial cells LM Ql (Urine sed) FEW Abnormal NONE SEEN /RARE [facility] Comment on above: Performed By: #### U AMIC #### [facility] [address] [place] [address] Dr. Kashif Martinez Glucose Ql (U) Negative Normal NEGATIVE [facility] Comment on above: Performed By: #### U AMIC #### [facility] [address] [address] [address] Kashif Martinez Hemoglobin Ql (U) Negative Normal NEGATIVE [facility] Comment on above: Performed By: #### U AMIC #### [facility] [address] [address] [address] Kashif Martinez Ketones Ql (U) Negative Normal NEGATIVE [facility] Comment on above: Performed By: #### U AMIC #### [facility] [address] [address] [address] Kashif Martinez LEUKOCYTES TRACE Abnormal NEGATIVE [facility] Comment on above: Performed By: #### U AMIC #### [facility] [address] [address] [address] Kashif Martinez MUCOUS NONE SEEN Normal NONE SEEN [facility] Comment on above: Performed By: #### U AMIC #### [facility] [address] [address] [address] Kashif Martinez Nitrite Ql (U) Negative Normal NEGATIVE [facility] Comment on above: Performed By: #### U AMIC #### [facility] [address] [address] [address] Kashif Martinez pH (U) 6.0 [pH] Normal 5-9 [facility] Comment on above: Performed By: #### U AMIC #### [facility] [address] [place] [address] Dr. Kashif Martinez RBC 0-2 Normal 0-2 [facility] Comment on above: Performed By: #### U AMIC #### [facility] [address] [place] [address] Dr. Kashif Martinez SPEC GRAVITY <=1.005 Abnormal 1.005-<=1.025 [facility] Comment on above: Performed By: #### U AMIC #### [facility] [address] [place] [address] Dr. Kashif Martinez UA PROTEIN Negative Normal NEGATIVE/ TRACE [facility] Comment on above: Performed By: #### U AMIC #### [facility] [address] [place] [address] Dr. Kashif Martinez Urobilinogen Qn (U) 0.2 {Harvinder'U}/dL Normal 0.2 - 1. 0 [facility] Comment on above: Performed By: #### U AMIC #### [facility] [address] [place] [address] Dr. Kashif Martinez WBC 0-2 Abnormal NONE SEEN [facility] Comment on above: Performed By: #### U AMIC #### [facility] [address] [place] [address] Dr. Kashif Martinez CBC AUTO DIFFon 02-07-2023 BASO # 0.0 103/ul Normal 0.0-0.1 [facility] Comment on above: Performed By: #### C BC #### [facility] [address] [place] [address] Dr. Kashif Martinez Basophils/100 WBC (Bld) 0.6 % Normal 0.2-2.0 [facility] Comment on above: Performed By: #### C BC #### [facility] [address] [place] [address] Dr. Kashif Martinez EO # 0.0 103/ul Normal 0.0-0.7 [facility] Comment on above: Performed By: #### C BC #### [facility] [address] [place] [address] Dr. Kashif Martinez Eosinophils/100 WBC (Bld) 0.6 % Critically low 0.9-7.0 [facility] Comment on above: Performed By: #### C BC #### [facility] [address] [place] [address] Dr. Kashif Martinez Erythrocyte distribution width (RBC) [Ratio] 18.1 % Critically high 11.0-15.0 [facility] Comment on above: Performed By: #### C BC #### [facility] [address] [place] [address] Dr. Kashif Martinez Hematocrit (Bld) [Volume fraction] 30.1 % Critically low 36.0-48.0 [facility] Comment on above: Performed By: #### C BC #### [facility] [address] [place] [address] Dr. Kashif Martinez Hemoglobin (Bld) [Mass/Vol] 8.6 g/dL Critically low 12.0-16.0 [facility] Comment on above: Performed By: #### C BC #### [facility] [address] [place] [address] Dr. Kashif Martinez IG # 0.02 10e3/ul Normal 0.00-0.03 [facility] Comment on above: Performed By: #### C BC #### [facility] [address] [place] [address] Dr. Kashif Martinez IG % 0.3 % Normal 0.0-0.5 [facility] Comment on above: Performed By: #### C BC #### [facility] [address] [place] [address] Dr. Kashif Martinez LYMPH # 1.4 103/ul Normal 1.2-3.8 [facility] Comment on above: Performed By: #### C BC #### [facility] [address] [place] [address] Dr. Kashif Martinez Lymphocytes/100 WBC (Bld) 19.8 % Critically low 20.5-60.0 [facility] Comment on above: Performed By: #### C BC #### [facility] [address] [place] [address] Dr. Kashif Martinez MANUAL DIFF REQ NO Normal [facility] Comment on above: Performed By: #### C BC #### [facility] [address] [place] [address] Dr. Kashif Martinez MCH (RBC) [Entitic mass] 19.2 pg Critically low 26.7-34.0 [facility] Comment on above: Performed By: #### C BC #### [facility] [address] [place] [address] Dr. Kashif Martinez MCHC (RBC) [Mass/Vol] 28.6 g/dL Critically low 29.9-35.2 [facility] Comment on above: Result Comment: Slig ht Hypochromosia Seen Performed By: #### C BC #### [facility] [address] [place] [address] Dr. Kashif Martinez MCV (RBC) [Entitic vol] 67.3 fL Critically low 81.0-99.0 [facility] Comment on above: Performed By: #### C BC #### [facility] [address] [place] [address] Dr. Kashif Martinez MONO # 0.8 103/ul Normal 0.3-0.8 [facility] Comment on above: Performed By: #### C BC #### [facility] [address] [place] [address] Dr. Kashif Martinez Monocytes/100 WBC (Bld) 11.1 % Normal 1.7-12.0 [facility] Comment on above: Performed By: #### C BC #### [facility] [address] [place] [address] Dr. Kashif Martinez NEUT # 4.7 103/ul Normal 1.4-6.5 [facility] Comment on above: Performed By: #### C BC #### [facility] [address] [address] [address] Kashif Martinez Neutrophils/100 WBC (Bld) 67.6 % Normal 43.0-75.0 [facility] Comment on above: Performed By: #### C BC #### [facility] [address] [address] [address] Kashif Martinez Platelet mean volume (Bld) [Entitic vol] 8.5 fL Critically low 9.5-13.5 [facility] Comment on above: Performed By: #### C BC #### [facility] [address] [address] [address] Kashif Martinez PLT 409 103/ul Normal 150-450 [facility] Comment on above: Performed By: #### C BC #### [facility] [address] [place] [address] Dr. Kashif Martinez RBC 4.47 106/ul Normal 4.20-5.40 [facility] Comment on above: Performed By: #### C BC #### [facility] [address] [address] [address] Kashif Martinez WBC 6.9 103/ul Normal 4.0-11.0 [facility] Comment on above: Performed By: #### C BC #### [facility] [address] [place] [address] Dr. Kashif Martinez FREE T3on 02-07-2023 FREE T3 3.47 pg/mlL Normal 2.18-3.98 [facility] Comment on above: Performed By: #### C MP, TSH, T7, LIPID #### [facility] [address] [address] [address] Kashif Martinez GLYCOHEMOGLOBIN A1Con 2022 ADA RECOMMENDATION SEE BELOW Normal [facility] Comment on above: Result Comment: ADA RECOMMENDED LIMIT 4.0 - 6.0 ADA THERAPEUTIC TARGET < 7.0 ACTION SUGGESTED > 7.0 Performed By: #### C BC #### [facility] [address] [place] [address] Dr. Kashif Martinez Glucose [Mass/Vol] 103 mg/dL Normal [facility] Comment on above: Performed By: #### C BC #### [facility] [address] [address] [address] Kashif Martinez HbA1c (Bld) [Mass fraction] 5.2 % Normal 4.5-6.2 [facility] Comment on above: Performed By: #### C BC #### [facility] [address] [address] [address] Kashif Martinez IRONon 02-07-2023 Iron [Mass/Vol] 12.0 ug/dL Critically low 50.0-170.0 [facility] Comment on above: Performed By: #### V ITAD, IRON #### [facility] [address] [address] [address] Kashif Martinez LIPID PROFILEon 02-07-2023 CHOL-HDL RATIO NORM SEE BELOW Normal [facility] Comment on above: Result Comment: 3.3 - 4.4 LOW RISK 4.4 - 7.1 AVERAGE RISK 7.1 - 11.0 MODERATE RISK >11.0 HIGH RISK Performed By: #### C MP, TSH, T7, LIPID #### [facility] [address] [address] [address] Kashif Martinez Cholesterol [Mass/Vol] 180 mg/dL Normal <=200 [facility] Comment on above: Performed By: #### C MP, TSH, T7, LIPID #### [facility] [address] [address] [address] Kashif Martinez Cholesterol in HDL [Mass/Vol] 64 mg/dL Critically high 40-60 [facility] Comment on above: Performed By: #### C MP, TSH, T7, LIPID #### [facility] [address] [address] [address] Kashif Martinez Cholesterol in LDL [Mass/Vol] 100.2 mg/dL Normal [facility] Comment on above: Performed By: #### C MP, TSH, T7, LIPID #### [facility] [address] [address] [address] Kashif Martinez Cholesterol.total/Ch olesterol in HDL [Mass ratio] 2.8 {ratio} Normal [facility] Comment on above: Performed By: #### C MP, TSH, T7, LIPID #### [facility] [address] [address] [address] Kashif Martinez HDL NORMAL > or = 60 mg/dl - LO W CARDIOVASCULAR RISK <40 mg/dl - HIGH CARDIOVASCULAR RISK Normal [facility] Comment on above: Performed By: #### C MP, TSH, T7, LIPID #### [facility] [address] [address] [address] Kashif Martinez LDL CALC NORMAL SEE BELOW Normal [facility] Comment on above: Result Comment: <100 mg/dl OPTIMAL 100 - 129 mg/dl NEAR OR ABOVE OPTIMAL 130 - 159 mg/dl BORDERLINE HIGH 160 - 189 mg/dl HIGH >190 mg/dl VERY HIGH Performed By: #### C MP, TSH, T7, LIPID #### [facility] [address] [address] [address] Kashif Martinez Triglyceride [Mass/Vol] 79 mg/dL Normal <=150 [facility] Comment on above: Performed By: #### C MP, TSH, T7, LIPID #### [facility] [address] [address] [address] Kashif Martinez VLDL CALC 15.8 mg/dL Normal [facility] Comment on above: Performed By: #### C MP, TSH, T7, LIPID #### [facility] [address] [address] [address] Kashif Martinez PROF 14(COMP METB)on 023 Albumin [Mass/Vol] 3.8 g/dL Normal 3.4-5.0 [facility] Comment on above: Performed By: #### C BC #### [facility] [address] [address] [address] Kashif Martinez Albumin/Globulin [Mass ratio] 0.9 {ratio} Normal [facility] Comment on above: Performed By: #### C BC #### [facility] [address] [address] [address] Kashif Martinez ALP [Catalytic activity/Vol] 100 U/L Normal 46-116 [facility] Comment on above: Performed By: #### C BC #### [facility] [address] [address] [address] Kashif Martinez ALT [Catalytic activity/Vol] 30 U/L Normal 14-59 [facility] Comment on above: Performed By: #### C BC #### [facility] [address] [address] [address] Kashif Martinez Anion gap [Moles/Vol] 14.5 mmol/L Normal [facility] Comment on above: Performed By: #### C BC #### [facility] [address] [address] [address] Kashif Martinez AST [Catalytic activity/Vol] 22 U/L Normal 15-37 [facility] Comment on above: Performed By: #### C BC #### [facility] [address] [place] [address] Dr. Kashif Martinez Bilirubin [Mass/Vol] 0.4 mg/dL Normal 0.2-1.0 [facility] Comment on above: Performed By: #### C BC #### [facility] [address] [place] [address] Dr. Kashif Martinez Calcium [Mass/Vol] 9.0 mg/dL Normal 8.5-10.1 [facility] Comment on above: Performed By: #### C BC #### [facility] [address] [place] [address] Dr. Kashif Martinez Chloride [Moles/Vol] 104 mmol/L Normal 98-107 [facility] Comment on above: Performed By: #### C BC #### [facility] [address] [place] [address] Dr. Kashif Martinez CO2 [Moles/Vol] 26.7 mmol/L Normal 21.0-32.0 [facility] Comment on above: Performed By: #### C BC #### [facility] [address] [place] [address] Dr. Kashif Martinez Creatinine [Mass/Vol] 0.75 mg/dL Normal 0.55-1.02 [facility] Comment on above: Performed By: #### C BC #### [facility] [address] [address] [address] Kashif Martinez EGFR-AF SRI LANKAN >60 Normal >=60 [facility] Comment on above: Performed By: #### C BC #### [facility] [address] [place] [address] Dr. Kashif Martinez EGFR-NON AF SRI LANKAN >60 Normal >=60 [facility] Comment on above: Performed By: #### C BC #### [facility] [address] [place] [address] Dr. Kashif Martinez Globulin (S) [Mass/Vol] 4.1 g/dL Normal [facility] Comment on above: Performed By: #### C BC #### [facility] [address] [place] [address] Dr. Kashif Martinez Glucose [Mass/Vol] 104 mg/dL Normal 74-106 [facility] Comment on above: Performed By: #### C BC #### [facility] [address] [place] [address] Dr. Kashif Martinez Potassium [Moles/Vol] 4.2 mmol/L Normal 3.5-5.1 [facility] Comment on above: Performed By: #### C BC #### [facility] [address] [place] [address] Dr. Kashif Martinez Protein [Mass/Vol] 7.9 g/dL Normal 6.4-8.2 [facility] Comment on above: Performed By: #### C BC #### [facility] [address] [place] [address] Dr. Kashif Martinez Sodium [Moles/Vol] 141 mmol/L Normal 136-145 [facility] Comment on above: Performed By: #### C BC #### [facility] [address] [place] [address] Dr. Kashif Martinez Urea nitrogen [Mass/Vol] 18.0 mg/dL Normal 7.0-18.0 [facility] Comment on above: Performed By: #### C BC #### [facility] [address] [place] [address] Dr. Kashif Martinez Urea nitrogen/Creatinine [Mass ratio] 24.0 mg/mg Normal [facility] Comment on above: Performed By: #### C BC #### [facility] [address] [address] [address] Kashif Martinez T4on 02-07-2023 T4 [Mass/Vol] 11.30 ug/dL Normal 4.80-13.90 [facility] Comment on above: Performed By: #### C BC #### [facility] [address] [address] [address] Kashif Martinez TSHon 02-07-2023 TSH 0.954 uIU/mL Normal 0.358-3.740 [facility] Comment on above: Performed By: #### C MP, TSH, T7, LIPID #### [facility] [address] [place] [address] Dr. Kashif Martinez VITAMIN D 25 OHon 02-07-2023 VIT D 25-OH 66.3 ng/mL Normal [facility] Comment on above: Performed By: #### V ITMARANDA, IRON #### [facility] [address] [place] [address] Dr. Kashif Martinez VIT D RANGES SEE BELOW Normal [facility] Comment on above: Result Comment: <20 ng/mL Vit D deficient 20 - <30 ng/mL Vit D insufficient 30 - 100 ng/mL Vit D sufficient >100 ng/mL Potential Toxicity Performed By: #### V ITAD, IRON #### [facility] [address] [place] [address] Dr. Kashif Martinez XR CSPINE 2_3 VIEWSon 2022 XR CSPINE 2_3 VIEWS EXAMINATION: XR CSPI NE 2_3 VIEWS HISTORY: Neck pain , right shoulder pain COMPARISON: XR C-spine 10/18/2022 FINDINGS: BONES: 2 mm anterior listhesis of C3 on 4; stable between neutral, flexion, and extension. 3.5 mm anterior listhesis of C4 on 5; stable between neutral, flexion, and extension. 2 mm retrolisthesis of C5 on C6; stable between neutral, flexion, and extension. Prominent posterior disc-osteophyte complex at C4-5. Moderate degenerative facet arthropathy C2 through C6. DISC SPACES: Mild narrowing C3-4. Moderate-marked narrowing at C4-5 through C6-7. PARASPINOUS: Negative. No paraspinous abnormality is seen. OTHER: Negative. IMPRESSION: 1. Flexion and extension views demonstrate stable appearance of anterior and retrolisthesis as well as multilevel degenerative changes. 2. No fracture or acute abnormality. Electronically authenticated by: TA TERRELL Date: 2022-10-26 06:29 Normal [facility] [facility] CSPINE MIN 4 VIEWSon 09-26 XR CSPINE MIN 4 VIEWS EXAMINATION: XR CSPINE MIN 4 VIEWS HISTORY: Neck pain ; no known injury COMPARISON: No relevant comparison available. FINDINGS: BONES: 4 mm anterior listhesis of C4 on 5. Moderate degenerative facet arthropathy C2-3 through C5-6. No fracture or bone lesion. DISC SPACES: Moderate-marked narrowing C4-5, C5-6, C6-7. Prominent posterior disc-osteophyte complex C4-5. Mild narrowing C3-4. PARASPINOUS: Negative. No paraspinous abnormality is seen. OTHER: Negative. IMPRESSION: 1. Multilevel moderate-marked degenerative changes of the cervical spine. Electronically authenticated by: TA TERRELL Date: 2022-10-19 09:40 Normal [facility] XR TSPINE 3 VIEWSon 10-19-19 23 XR TSPINE 3 VIEWS EXAMINATION: XR TSPI NE 3 VIEWS HISTORY: Thoracic back pain COMPARISON: No relevant comparison available. FINDINGS: BONES: Mild left convex curvature of thoracic spine and prominent right convex curvature lumbar spine. Mild kyphosis. No fracture, spondylolisthesis, bone lesion. DISC SPACES: Multilevel mild-moderate degenerative disc disease of mid thoracic spine. PARASPINOUS: Negative. No paraspinous abnormality is seen. OTHER: Negative. IMPRESSION: 1. Multilevel mild-moderate degenerative disc disease. 2. No appreciable fracture, spondylolisthesis, bone lesion. 3. Marked degenerative disc disease of cervical spine. 4. Prominent scoliotic curvature of lumbar spine. Electronically authenticated by: TA TERRELL Date: 2022-10-19 09:45 Normal [facility] WOUND CULTURE, AEROBIC AND A [place] 05-24-2022 WOUND CULTURE, AEROBIC AND ANAEROBIC Specimen source XXX: SHOULDER RIGHT 2 Performed at [facility] [address] [place] [address] Service Cmnt XXX-Imp: HOLD 2 WEEKS FOR P ACNES Performed at [place] [id number] Microscopic observation: NO ORGANISMS SEEN 1+ WBC Bacteria identified: NO GROWTH 14 DAYS Performed at [facility],[address] [place] [id number] : FINAL 05/24/2022 [facility] Comment on above: Performed By: #### W NDA #### [facility] [id number] [place], [place] [address] [place] [address] WOUND CULTURE, AEROBIC AND ANAEROBIC Specimen source XXX: SHOULDER RIGHT 4 Performed at [place] [id number] Service Cmnt XXX-Imp: HOLD 2 WEEKS FOR P ACNES Performed at [place] [id number] Microscopic observation: NO ORGANISMS SEEN NO WBC SEEN Bacteria identified: NO GROWTH 14 DAYS Performed at [facility],[address] [place] [address] : FINAL 05/24/2022 [facility] Comment on above: Performed By: #### W NDA #### [facility] [id number] [place] [address] WOUND CULTURE, AEROBIC AND ANAEROBIC Specimen source XXX: SHOULDER RIGHT 3 Performed at [place] [id number] Service Cmnt XXX-Imp: HOLD 2 WEEKS FOR P ACNES Performed at [place] [id number] Microscopic observation: NO ORGANISMS SEEN NO WBC SEEN Bacteria identified: NO GROWTH 14 DAYS Performed at [facility],[id number] [place] [address] : FINAL 05/24/2022 [facility] Comment on above: Performed By: #### W NDA #### [facility] [address] [place], [place] [address] [place] [address] WOUND CULTURE, AEROBIC AND ANAEROBIC Specimen source XXX: SHOULDER RIGHT 1 Performed at [address] [address] Service Cmnt XXX-Imp: HOLD 2 WEEKS FOR P ACNES Performed at [place] [id number] Microscopic observation: NO ORGANISMS SEEN 2+ WBC Bacteria identified: NO GROWTH 14 DAYS Performed at [facility],[address] [place], [place] [address] [place] [address] : FINAL 05/24/2022 [facility] Comment on above: Performed By: #### W NDA #### [place] [id number] SARS-CoV-2,INFLUENZA A/B NUC LEIC ACID TESTon 05-09-2022 EUA DISCLAIMER [facility] Comment on above: Result Comment: This test has been authorized by FDA under an EUA for use by CLIA Certified Moderate and High-Complexity laboratories and Point of Care (POC), i.e., in patient care settings operating under a CLIA Certificate of Waiver, Certificate of Compliance, or Certificate of Accreditation. This test has been authorized only for the simultaneous qualitative detection and differentiation of nucleic acid from SARS-CoV-2, influenza A virus, and influenza B virus and not for any other viruses or pathogens. This test is only authorized for the duration of the declaration that circumstances exist justifying the authorization of emergency use of in vitro diagnostic tests for the detection and/or diagnosis of COVID-19, unless the authorization is terminated or revoked sooner. Performed at [place] [address] FLU A by PCR Negative [facility] FLU B by PCR Negative [facility] SARS-CoV-2 (COVID-19) RNA MOISES+probe Ql (Unsp spec) Negative Normal NEG [facility] URINE CULTUREon 04-29-2022 Bacteria identified Cx Nom (U) Specimen source XXX: CLEAN VOIDED MIDSTREAM Performed at [place] [address] Service Cmnt XXX-Imp: NONE Reflexed from [id number] Performed at [place] [address] CC Number Ur: 10,000-50,000 CFU/ml Bacteria identified: NORMAL UROGENITAL VANCE Performed at [place] [id number] : FINAL 04/29/2022 [facility] Comment on above: Performed By: #### U R #### [place] [id number] CBC with Diffon 04-27-2022 AB IMMATURE NEUT 0.03 K/UL Normal 0.0-0.1 [facility] ABS BASO 0.02 K/UL Normal 0.00-0.22 [facility] ABS EOS 0.29 K/UL Normal 0-0.45 [facility] ABS NEUTROPHILS 5.33 K/UL Normal 1.8-7.7 [facility] ABS.NEUT.CALCULATED 5.33 K/UL Normal [facility] Comment on above: Result Comment: Perf ormed at [facility] [address] [facility] [address] Basophils/100 WBC (Bld) 0.20 % Normal 0-1 [facility] DIFF TYPE AUTO DIFF Normal [facility] Eosinophils/100 WBC (Bld) 3.40 % High 0-3 [facility] Erythrocyte distribution width (RBC) [Ratio] 13.0 % Normal 11.7-15.0 [facility] Hematocrit (Bld) [Volume fraction] 43.8 % Normal 36-44 [facility] Hemoglobin (Bld) [Mass/Vol] 14.3 g/dL Normal 12.0-15.0 [facility] Lymphocytes (Bld) [#/Vol] 1.93 10*3/uL Normal 1.2-3.2 [facility] Lymphocytes/100 WBC (Bld) 22.50 % Normal 20-40 [facility] MCH (RBC) [Entitic mass] 29.9 pg Normal 26-34 [facility] MCHC 32.6 % Normal 31-37 [facility] MCV (RBC) [Entitic vol] 91.4 fL Normal 80-100 [facility] MEAN PLT VOL 8.9 CU Normal 7.0-12.6 [facility] Monocytes (Bld) [#/Vol] 0.96 10*3/uL High 0-0.8 [facility] Monocytes/100 WBC (Bld) 11.20 % High 0-8 [facility] Neutrophils/100 WBC (Bld) 0.40 % Normal 0.0-1.0 [facility] Neutrophils/100 WBC (Bld) 62.30 % Normal 50-70 [facility] Platelets (Bld) [#/Vol] 340 10*3/uL Normal 150-450 [facility] RBC (Bld) [#/Vol] 4.79 10*6/uL Normal 4.0-4.9 [facility] RDW-SD 44.8 FL Normal 37.0-54.0 [facility] WBC (Bld) [#/Vol] 8.6 10*3/uL Normal 4.5-11.0 [facility] COMPREHENSIVE METABOLIC PANE Rodriguez 04-27-2022 Albumin [Mass/Vol] 4.7 g/dL Normal 3.5-5.0 [facility] Albumin/Globulin [Mass ratio] 1.7 {ratio} Normal 1.5-3.0 [facility] ALP [Catalytic activity/Vol] 101 U/L Normal 35-125 [facility] ALT [Catalytic activity/Vol] 20 U/L Normal 5-40 [facility] Anion gap [Moles/Vol] 11 mmol/L Normal 0-19 [facility] AST [Catalytic activity/Vol] 24 U/L Normal 5-40 [facility] Bilirubin [Mass/Vol] 0.2 mg/dL Normal 0.1-1.2 [facility] Calcium [Mass/Vol] 10.0 mg/dL Normal 8.5-10.4 [facility] Chloride [Moles/Vol] 107 mmol/L Normal 97-107 [facility] CO2 [Moles/Vol] 25 mmol/L Normal 24-31 [facility] Creatinine [Mass/Vol] 0.6 mg/dL Normal 0.4-1.6 [facility] ESTIMATED GFR 92 mL/min/1.73 m2 Normal [facility] Comment on above: Result Comment: CALCULATIONS OF ESTIMATED GFR ARE PERFORMED USING THE 2020 CKD-EPI STUDY REFIT EQUATION WITHOUT THE RACE VARIABLE FOR THE IDMS-TRACEABLE CREATININE METHODS. https://jasn.asnjournals.org/content//ASN.9445395 988 Performed at [facility] [address] [facility] [address] Globulin (S) [Mass/Vol] 2.8 g/dL Normal 1.9-3.7 [facility] Glucose [Mass/Vol] 92 mg/dL Normal 65-99 [facility] Potassium [Moles/Vol] 4.5 mmol/L Normal 3.4-5.1 [facility] Protein [Mass/Vol] 7.5 g/dL Normal 5.9-7.9 [facility] Sodium [Moles/Vol] 143 mmol/L Normal 133-145 [facility] Urea nitrogen [Mass/Vol] 25 mg/dL Normal 8-25 [facility] Urea nitrogen/Creatinine [Mass ratio] 41.7 mg/mg High 8-21 [facility] HEMOGLOBIN A1con 04-27-2022 HbA1c (Bld) [Mass fraction] 5.4 % Normal 4.0-6.0 [facility] Comment on above: Result Comment: Hemo globin A1C levels are related to mean blood glucose during the preceding 2-3 months. The relationship table below may be used as a general guide. Each 1% increase in HGB A1C is a reflection of an increase in mean glucose of approximately 30 mg/dl. Reference: Diabetes Care, volume 29, supplement 1 2005 HGB A1C ................. Approx. Mean Glucose 6% ............................... 120 mg/dl 7% ............................... 150 mg/dl 8% ............................... 180 mg/dl 9% ............................... 210 mg/dl 10% ............................... 240 mg/dl Performed at [address] [address] Performed By: #### G LYC #### [facility] Laboratory [address] [address] UA-REFLEX TO CULTUREon 04-27 BACT PRESENT Normal [facility] EPI Normal [facility] Comment on above: Result Comment: MODE RATE TRANSITIONAL MODERATE SQUAMOUS RBC OCC Normal 0-3 [facility] Urinalysis dipstick W Reflex Microscopic panel (U) MANUAL MICROSCOPIC URINES Normal [facility] WBC 5-9 Normal 0-3 [facility] OTHER Normal [facility] Comment on above: Result Comment: PRES ENT MUCOUS PRESENT URINE FAT Performed at [facility] [address] [facility] [address] Bacteria identified Cx Nom (U) CULTURE BEING ORDERED BASED ON LEUKOCYTE ESTERASE Normal [facility] Comment on above: Result Comment: CULT URE BEING ORDERED BASED ON LEUKOCYTE ESTERASE Performed at [facility] [address] [facility] [address] BILI Negative Normal NEG [facility] Clarity (U) CLEAR Normal [facility] Color (U) YELLOW Normal [facility] GLUC Negative Normal NEG [facility] Hemoglobin Ql (U) Negative Normal NEG [facility] KET Negative Normal NEG [facility] LEUK TRACE Abnormal NEG [facility] NIT Negative Normal NEG [facility] pH (U) 5.5 [pH] Normal 4.6-8.0 [facility] PROT Negative Normal NEG [facility] SP GRAV,URINE 1.020 Normal 1.005-1.030 [facility] URO 0.2 MG/DL Normal 0-1.0 [facility] INSULINon 03-04-2022 Insulin 16.0 uIU/mL Normal 2.6-24.9 [facility] Comment on above: Performed By: #### C BC #### [facility] [address] [place] [address] Dr. Kashif Martinez T4 LABCORPon 03-04-2022 T4 [Mass/Vol] 9.2 ug/dL Normal 4.5-12.0 [facility] Comment on above: Performed By: #### C BC #### [facility] [address] [place] [address] Dr. Kashif Martinez CBC AUTO DIFFon 03-03-2022 BASO # 0.0 103/ul Normal 0.0-0.1 [facility] Comment on above: Performed By: #### C BC #### [facility] [address] [place] [address] Dr. Kashif Martinez Basophils/100 WBC (Bld) 0.4 % Normal 0.2-2.0 [facility] Comment on above: Performed By: #### C BC #### [facility] [address] [place] [address] Dr. Kashif Martinez EO # 0.0 103/ul Normal 0.0-0.7 [facility] Comment on above: Performed By: #### C BC #### [facility] [address] [place] [address] Dr. Kashif Martinez Eosinophils/100 WBC (Bld) 0.1 % Critically low 0.9-7.0 [facility] Comment on above: Performed By: #### C BC #### [facility] [address] [place] [address] Dr. Kashif Martinez Erythrocyte distribution width (RBC) [Ratio] 13.7 % Normal 11.0-15.0 [facility] Comment on above: Performed By: #### C BC #### [facility] [address] [place] [address] Dr. Kashif Martinez Hematocrit (Bld) [Volume fraction] 42.0 % Normal 36.0-48.0 [facility] Comment on above: Performed By: #### C BC #### [facility] [address] [place] [address] Dr. Kashif Martinez Hemoglobin (Bld) [Mass/Vol] 13.6 g/dL Normal 12.0-16.0 [facility] Comment on above: Performed By: #### C BC #### [facility] [address] [place] [address] Dr. Kashif Martinez IG # 0.03 10e3/ul Normal 0.00-0.03 [facility] Comment on above: Performed By: #### C BC #### [facility] [address] [place] [address] Dr. Kashif Martinez IG % 0.4 % Normal 0.0-0.5 [facility] Comment on above: Performed By: #### C BC #### [facility] [address] [place] [address] Dr. Kashif Martinez LYMPH # 1.2 103/ul Normal 1.2-3.8 [facility] Comment on above: Performed By: #### C BC #### [facility] [address] [place] [address] Dr. Kashif Martinez Lymphocytes/100 WBC (Bld) 16.4 % Critically low 20.5-60.0 [facility] Comment on above: Performed By: #### C BC #### [facility] [address] [place] [address] Dr. Kashif Martinez MANUAL DIFF REQ NO Normal [facility] Comment on above: Performed By: #### C BC #### [facility] [address] [place] [address] Dr. Kashif Martinez MCH (RBC) [Entitic mass] 29.6 pg Normal 26.7-34.0 [facility] Comment on above: Performed By: #### C BC #### [facility] [address] [place] [address] Dr. Kashif Martinez MCHC (RBC) [Mass/Vol] 32.4 g/dL Normal 29.9-35.2 [facility] Comment on above: Performed By: #### C BC #### [facility] [address] [place] [address] Dr. Kashif Martinez MCV (RBC) [Entitic vol] 91.5 fL Normal 81.0-99.0 [facility] Comment on above: Performed By: #### C BC #### [facility] [address] [place] [address] Dr. Kashif Martinez MONO # 0.8 103/ul Normal 0.3-0.8 [facility] Comment on above: Performed By: #### C BC #### [facility] [address] [place] [address] Dr. Kashif Martinez Monocytes/100 WBC (Bld) 10.5 % Normal 1.7-12.0 [facility] Comment on above: Performed By: #### C BC #### [facility] [address] [place] [address] Dr. Kashif Martinez NEUT # 5.3 103/ul Normal 1.4-6.5 [facility] Comment on above: Performed By: #### C BC #### [facility] [address] [place] [address] Dr. Kashif Martinez Neutrophils/100 WBC (Bld) 72.2 % Normal 43.0-75.0 [facility] Comment on above: Performed By: #### C BC #### [facility] [address] [place] [address] Dr. Kashif Martinez Platelet mean volume (Bld) [Entitic vol] 8.8 fL Critically low 9.5-13.5 [facility] Comment on above: Performed By: #### C BC #### [facility] [address] [place] [address] Dr. Kashif Martinez PLT 340 103/ul Normal 150-450 [facility] Comment on above: Performed By: #### C BC #### [facility] [address] [place] [address] Dr. Kashif Martinez RBC 4.59 106/ul Normal 4.20-5.40 [facility] Comment on above: Performed By: #### C BC #### [facility] [address] [place] [address] Dr. Kashif Martinez WBC 7.3 103/ul Normal 4.0-11.0 [facility] Comment on above: Performed By: #### C BC #### [facility] [address] [place] [address] Dr. Kashif Martinez FREE THYROXINE INDEX T7on FTI 3.04 Normal 1.30-4.50 [facility] Comment on above: Performed By: #### C MP, TSH, T7, LIPID #### [facility] [address] [place] [address] Dr. Kashif Martinez T3U 33.0 % Normal 30.0-39.0 [facility] Comment on above: Performed By: #### C MP, TSH, T7, LIPID #### [facility] [address] [place] [address] Dr. Kashif Martinez T4 [Mass/Vol] 9.20 ug/dL Normal 4.80-13.90 [facility] Comment on above: Performed By: #### C MP, TSH, T7, LIPID #### [facility] [address] [place] [address] Dr. Kashif Martinez GLYCOHEMOGLOBIN A1Con 2021 ADA RECOMMENDATION SEE BELOW Normal [facility] Comment on above: Result Comment: ADA RECOMMENDED LIMIT 4.0 - 6.0 ADA THERAPEUTIC TARGET < 7.0 ACTION SUGGESTED > 7.0 Performed By: #### C BC #### [facility] [address] [place] [address] [address] Kashif Martinez Glucose [Mass/Vol] 103 mg/dL Normal [facility] Comment on above: Performed By: #### C BC #### [facility] [address] [place] [address] Dr. Kashif Martinez HbA1c (Bld) [Mass fraction] 5.2 % Normal 4.5-6.2 [facility] Comment on above: Performed By: #### C BC #### [facility] [address] [place] [address] Dr. Kashif Martinez IRONon 03-03-2022 Iron [Mass/Vol] 85.0 ug/dL Normal 50.0-170.0 [facility] Comment on above: Performed By: #### C BC #### [facility] [address] [place] [address] Dr. Kashif Martinez LIPID PROFILEon 03-03-2022 CHOL-HDL RATIO NORM SEE BELOW Normal [facility] Comment on above: Result Comment: 3.3 - 4.4 LOW RISK 4.4 - 7.1 AVERAGE RISK 7.1 - 11.0 MODERATE RISK >11.0 HIGH RISK Performed By: #### C MP, TSH, T7, LIPID #### [facility] [address] [place] [address] Dr. Kashif Martinez Cholesterol [Mass/Vol] 219 mg/dL Critically high <=200 [facility] Comment on above: Performed By: #### C MP, TSH, T7, LIPID #### [facility] [address] [place] [address] Dr. Kashif Martinez Cholesterol in HDL [Mass/Vol] 51 mg/dL Normal 40-60 [facility] Comment on above: Performed By: #### C MP, TSH, T7, LIPID #### [facility] [address] [place] [address] [address] Kashif Martinez Cholesterol in LDL [Mass/Vol] 141.4 mg/dL Normal [facility] Comment on above: Performed By: #### C MP, TSH, T7, LIPID #### [facility] [address] [place] [address] Dr. Kashif Martinez Cholesterol.total/Ch olesterol in HDL [Mass ratio] 4.3 {ratio} Normal [facility] Comment on above: Performed By: #### C MP, TSH, T7, LIPID #### [facility] [address] [place] [address] [address] Kashif Martinez HDL NORMAL > or = 60 mg/dl - LO W CARDIOVASCULAR RISK <40 mg/dl - HIGH CARDIOVASCULAR RISK Normal [facility] Comment on above: Performed By: #### C MP, TSH, T7, LIPID #### [facility] [address] [place] [address] [address] Kashif Martinez LDL CALC NORMAL SEE BELOW Normal [facility] Comment on above: Result Comment: <100 mg/dl OPTIMAL 100 - 129 mg/dl NEAR OR ABOVE OPTIMAL 130 - 159 mg/dl BORDERLINE HIGH 160 - 189 mg/dl HIGH >190 mg/dl VERY HIGH Performed By: #### C MP, TSH, T7, LIPID #### [facility] [address] [place] [address] [address] Kashif Martinez Triglyceride [Mass/Vol] 133 mg/dL Normal <=150 [facility] Comment on above: Performed By: #### C MP, TSH, T7, LIPID #### [facility] [address] [place] [address] [address] Kashif Martinez VLDL CALC 26.6 mg/dL Normal [facility] Comment on above: Performed By: #### C MP, TSH, T7, LIPID #### [facility] [address] [place] [address] [address] Kashif Martinez PROF 14(COMP METB)on 022 Albumin [Mass/Vol] 3.7 g/dL Normal 3.4-5.0 [facility] Comment on above: Performed By: #### C MP, TSH, T7, LIPID #### [facility] [address] [place] [address] [address] Kashif Martinez Albumin/Globulin [Mass ratio] 1.0 {ratio} Normal [facility] Comment on above: Performed By: #### C MP, TSH, T7, LIPID #### [facility] [address] [place] [address] [address] Kashif Martinez ALP [Catalytic activity/Vol] 83 U/L Normal 46-116 [facility] Comment on above: Performed By: #### C MP, TSH, T7, LIPID #### [facility] [address] [place] [address] [address] Kashif Martinez ALT [Catalytic activity/Vol] 30 U/L Normal 14-59 [facility] Comment on above: Performed By: #### C MP, TSH, T7, LIPID #### [facility] [address] [place] [address] [address] Kashif Martinez Anion gap [Moles/Vol] 14.3 mmol/L Normal [facility] Comment on above: Performed By: #### C MP, TSH, T7, LIPID #### [facility] [address] [place] [address] Dr. Kashif Martinez AST [Catalytic activity/Vol] 21 U/L Normal 15-37 [facility] Comment on above: Performed By: #### C MP, TSH, T7, LIPID #### [facility] [address] [place] [address] [address] Kashif Martinez Bilirubin [Mass/Vol] 0.4 mg/dL Normal 0.2-1.0 [facility] Comment on above: Performed By: #### C MP, TSH, T7, LIPID #### [facility] [address] [place] [address] Dr. Kashif Martinez Calcium [Mass/Vol] 9.2 mg/dL Normal 8.5-10.1 [facility] Comment on above: Performed By: #### C MP, TSH, T7, LIPID #### [facility] [address] [place] [address] Dr. Kashif Martinez Chloride [Moles/Vol] 106 mmol/L Normal 98-107 [facility] Comment on above: Performed By: #### C MP, TSH, T7, LIPID #### [facility] [address] [place] [address] Dr. Kashif Martinez CO2 [Moles/Vol] 26.2 mmol/L Normal 21.0-32.0 [facility] Comment on above: Performed By: #### C MP, TSH, T7, LIPID #### [facility] [address] [place] [address] [address] Kashif Martinez Creatinine [Mass/Vol] 0.70 mg/dL Normal 0.55-1.02 [facility] Comment on above: Performed By: #### C MP, TSH, T7, LIPID #### [facility] [address] [place] [place] [address] Dr. Kashif Martinez EGFR-AF SRI LANKAN >60 Normal >=60 [facility] Comment on above: Performed By: #### C MP, TSH, T7, LIPID #### [facility] [address] [place] [address] Dr. Kashif Martinez EGFR-NON AF SRI LANKAN >60 Normal >=60 [facility] Comment on above: Performed By: #### C MP, TSH, T7, LIPID #### [facility] [address] [place] [address] Dr. Kashif Martinez Globulin (S) [Mass/Vol] 3.6 g/dL Normal [facility] Comment on above: Performed By: #### C MP, TSH, T7, LIPID #### [facility] [address] [place] [address] Dr. Kashif Martinez Glucose [Mass/Vol] 101 mg/dL Normal 74-106 [facility] Comment on above: Performed By: #### C MP, TSH, T7, LIPID #### [facility] [address] [place] [address] Dr. Kashif Martinez Potassium [Moles/Vol] 4.5 mmol/L Normal 3.5-5.1 [facility] Comment on above: Performed By: #### C MP, TSH, T7, LIPID #### [facility] [address] [place] [address] Dr. Kashif Martinez Protein [Mass/Vol] 7.3 g/dL Normal 6.4-8.2 [facility] Comment on above: Performed By: #### C MP, TSH, T7, LIPID #### [facility] [address] [place] [address] Dr. Kashif Martinez Sodium [Moles/Vol] 142 mmol/L Normal 136-145 [facility] Comment on above: Performed By: #### C MP, TSH, T7, LIPID #### [facility] [address] [place] [address] Dr. Kashif Martinez Urea nitrogen [Mass/Vol] 18.0 mg/dL Normal 7.0-18.0 [facility] Comment on above: Performed By: #### C MP, TSH, T7, LIPID #### [facility] [address] [place] [address] Dr. Kashif Martinez Urea nitrogen/Creatinine [Mass ratio] 25.7 mg/mg Normal [facility] Comment on above: Performed By: #### C MP, TSH, T7, LIPID #### [facility] [address] [place] [address] Dr. Kashif Martinez TSHon 03-03-2022 TSH 0.760 uIU/mL Normal 0.358-3.740 [facility] Comment on above: Performed By: #### C MP, TSH, T7, LIPID #### [facility] [address] [place] [address] Dr. Kashif Martinez TSH RANGE SEE BELOW Normal [facility] Comment on above: Result Comment: <0.3 4 UIU/ml HYPERTHYROID 0.34-5.60 UIU/ml EUTHYROID >5.60 UIU/ml HYPOTHYROID Performed By: #### C MP, TSH, T7, LIPID #### [facility] [address] [place] [address] Dr. Kashif Martinez VITAMIN D 25 OHon 03-03-2022 VIT D 25-OH 68.1 ng/mL Normal [facility] Comment on above: Performed By: #### C BC #### [facility] [address] [place] [address] Dr. Kashif Martinez VIT D RANGES SEE BELOW Normal [facility] Comment on above: Result Comment: <20 ng/mL Vit D deficient 20 - <30 ng/mL Vit D insufficient 30 - 100 ng/mL Vit D sufficient >100 ng/mL Potential Toxicity Performed By: #### C BC #### [facility] [address] [address] [address] Kashif Martinez XR pre/post mri xrayon 04-22 XR pre/post mri xray [facility] Main [address] [address] MRI Report Signed Patient: Qing Fischer MR#: [id number] 2 : 1945 Acct:[id number] Age/Sex: 75 / F ADM Date: 04/22/21 Loc: [facility] Room: Type: [facility] CLI Attending Dr: Lyndon Thomason Jr, DO Ordering Provider: Lyndon Thomason Jr, DO Date of Service: 04/22/21 MR/MR shoulder RT wo con: M75.101 ([id number]) XR/XR pre/post mri xray: RT SHOULDER PAIN Copies to: Lyndon Thomason Jr, DO MRI RIGHTshoulder without contrast TECHNIQUE: Multiplanar T1 and T2-weighted imaging of the LEFT shoulder obtained without contrast. HISTORY: RIGHT shoulder injury a few years ago. Fell. Decreased range of motion. Severe pain. Frozen shoulder. No bone marrow edema or fracture identified. Moderate arthrosis of the acromioclavicular joint identified. There is a complete full-thickness tear involving the supraspinatus tendon and partial full- thickness tear of the infraspinatus tendon which arises from the greater tuberosity and is retracted medial to the acromioclavicular joint. Subscapularis tendon intact. Extensive joint effusion identified. There is limitation of examination secondary to patient motion artifact and visualization of open magnet. There may potentially be a tear involving the long head of biceps tendon. There is limited assessment of the bicipital complex. The glenoid labrum appears intact. Marked atrophic changes of the supraspinatus and infraspinatus musculature noted. No subcutaneous abnormalities identified. MR/MR shoulder RT wo con IMPRESSION: Limited examination. Complete retracted tear of the supraspinatus tendon and full-thickness tear involving the infraspinatus tendon with retraction. Marked atrophic changes of the supraspinatus and infraspinatus musculature. Possible tear involving the long head of biceps tendon. Acromioclavicular degeneration. 2 views of the RIGHT shoulder obtained for pre-MRI assessment. Diffuse osteopenia. No fracture or dislocation. Acromioclavicular degeneration. No soft tissue abnormality. IMPRESSION: Degenerative change. Diffuse osteopenia. No acute bony findings. Impression dictated by: Soham Boyd M.D.04/22/2021 4:44 PM Dictation Location: [place] [address] Transcribed By: [facility] 04/22/21 1644 Dictated By: Soham Boyd DO 04/22/21 1633 Signed By: 04/22/21 1644 [facility] BMPon 04-06-2019 Anion gap [Moles/Vol] 10 mmol/L 10 - 20 mmol/L [facility] Calcium [Mass/Vol] 9.2 mg/dL 8.4 - 10. 2 mg/dL [facility] Chloride [Moles/Vol] 110 mmol/L High 98 - 10 8 mmol/L [facility] Creatinine [Mass/Vol] 0.73 mg/dL 0.6 - 1.2 mg/dL [facility] GFR/1.73 sq M predicted among non-blacks MDRD (S/P/Bld) [Vol rate/Area] The eGFR should be used for monitoring renal function only and not for medication dosing. [facility] GFR/1.73 sq M.predicted CKD-EPI (S/P/Bld) [Vol rate/Area] 81 >=60 mL/min/1.73 m2 [facility] Glucose [Mass/Vol] 117 mg/dL High 65 - 99 mg/dL [facility] HCO3 [Moles/Vol] 24 mmol/L 21 - 32 mmol/L [facility] Interpretation and review of laboratory results Abnormal [facility] Potassium [Moles/Vol] 3.8 mmol/L 3.5 - 5.1 mmol/L [facility] Sodium [Moles/Vol] 140 mmol/L 135 - 145 mmol/L [facility] Urea nitrogen [Mass/Vol] 16 mg/dL 8 - 25 mg/dL [facility] Urea nitrogen/Creatinine [Mass ratio] 21.9 mg/mg High [facility] CBC WITH AUTO DIFFERENTIALon 04-06-2019 Basophils (Bld) [#/Vol] 0.02 10*3/uL [facility] Basophils/100 WBC (Bld) 0.3 % [facility] Eosinophils (Bld) [#/Vol] 0.04 10*3/uL [facility] Eosinophils/100 WBC (Bld) 0.6 % [facility] Erythrocyte distribution width (RBC) [Entitic vol] 15.8 % High 11.6 - 14.8 % [facility] Hematocrit (Bld) [Volume fraction] 42.1 % 36 - 46 % [facility] Hemoglobin (Bld) [Mass/Vol] 13.7 g/dL 12 - 16 g/dL [facility] Immature granulocytes (Bld) [#/Vol] 0.02 10*3/uL [facility] Immature granulocytes/100 WBC (Bld) 0.30 % [facility] Comment on above: The IG parameter is the percentage of metamyelocytes, myelocytes, and promyelocytes. Interpretation and review of laboratory results Abnormal [facility] Lymphocytes (Bld) [#/Vol] 1.24 10*3/uL [facility] Lymphocytes/100 WBC (Bld) 17.8 % [facility] MCH (RBC) [Entitic mass] 27.3 pg 26 - 34 pg [facility] MCHC (RBC) [Mass/Vol] 32.5 g/dL 31 - 37 g/dL [facility] MCV (RBC) [Entitic vol] 83.9 fL 80 - 100 fL [facility] Monocytes (Bld) [#/Vol] 0.82 10*3/uL [facility] Monocytes/100 WBC (Bld) 11.8 % [facility] Neutrophils (Bld) [#/Vol] 4.82 10*3/uL [facility] Neutrophils/100 WBC (Bld) 69.2 % [facility] Nucleated RBC (Bld) [#/Vol] 0.00 10*3/uL [facility] Nucleated RBC/100 WBC (Bld) [Ratio] 0.0 % [facility] Platelet mean volume (Bld) [Entitic vol] 8.2 fL Low 9 - 15.5 fL [facility] Platelets (Bld) [#/Vol] 273 10*3/uL [facility] RBC (Bld) [#/Vol] 5.02 10*6/uL [facility] ealth WBC (Bld) [#/Vol] 6.96 10*3/uL [facility] eah ECG 12-LEADon 04-06-2019 Lesley Dawkins 04/06/2019 12:08 PM EKG 12-lead Date/Time: 04/06/2019 11:35 AM Performed by: Shell Hawkins MD Authorized by: Shell Hawkins MD Interpreted by ED attending physician Rhythm: sinus rhythm BPM: 80 Conduction: complete RBBB ST Segments: ST segments normal T Waves: T waves normal Other: no other findings [facility] Otheron 04-06-2019 Extra Tube Hold for add-ons. [facility] Comment on above: Auto resulted. HIP RIGHT 1 OR 2 VWS WITH PE LVISon 11-01-2018 HIP RIGHT 1 OR 2 VWS WITH PELVIS [facility] Department of Radiology [address] [place] [id number] ======== Patient Name: QING FISCHER : 1945 Sex: F Age: Race: White Pt. Location: Patient Status: Ordered Date: 11/01/2018 1:55:00 PM Completed Date: 11/01/2018 01:58 PM Requesting Provider: LAURIE TOWNSEND Attending Provider: Report Copy To: Signs & Symptoms: S72.141D Displ intertroch fx r femur, subs for clos fx w routn heal I10 History: [place] Comments: , , , Ordering Provider - LAURIE TOWNSEND PA-C , Exam: HIP RIGHT 1 OR 2 VWS WITH PELVIS ======== HIP RIGHT 1 OR 2 VWS WITH PELVIS 11/01/2018 1:58 PM EST SIGNS AND SYMPTOMS: S72.141D Displ intertroch fx r femur, subs for clos fx w routn heal I10 TECHNOLOGIST COMMENTS: ortho check for right hip QUESTION FOR THE RADIOLOGIST: , , , Ordering Provider - LAURIE TOWNSEND PA-C , PROTOCOL: AP(PA) and Lateral views were obtained. COMPARISON: October 01, 2018 FINDINGS: Soft tissues: Unchanged Bones: Unchanged Joints: Unchanged IMPRESSION: Healing right intertrochanteric fracture with dynamic hip screw is similar to prior superimposed upon osteoporotic skeleton Electronically signed by:Wolfgang Ibarra. Transcribed by: [email or web address], User Resident: Electronically Signed by: WOLFGANG IBARRA @ 11/01/2018 02:05 PM Normal [facility] [place] [facility] Comment on above: Order Comment: No: D o not add to previous draw HIP RIGHT 1 OR 2 VWS WITH PE LVISon 10-01-2018 HIP RIGHT 1 OR 2 VWS WITH PELVIS [facility] Department of Radiology [address] [place] [id number] ======== Patient Name: QING FISCHER : 1945 Sex: F Age: Race: White Pt. Location: Patient Status: Ordered Date: 10/01/2018 2:20:00 PM Completed Date: 10/01/2018 02:27 PM Requesting Provider: LAURIE TOWNSEND Attending Provider: Report Copy To: Signs & Symptoms: S72.141D Displ intertroch fx r femur, subs for clos fx w routn heal I10 History: [place] Comments: , , , Ordering Provider - LAURIE TOWNSEND PA-C , Exam: HIP RIGHT 1 OR 2 VWS WITH PELVIS ======== HIP RIGHT 1 OR 2 VWS WITH PELVIS 10/01/2018 2:27 PM EST SIGNS AND SYMPTOMS: S72.141D Displ intertroch fx r femur, subs for clos fx w routn heal I10 TECHNOLOGIST COMMENTS: Ortho follow up for surgery to right hip. QUESTION FOR THE RADIOLOGIST: , , , Ordering Provider - LAURIE TOWNSEND PA-C , PROTOCOL: AP(PA) and Lateral views were obtained. COMPARISON: #2017 FINDINGS: Soft tissues: No acute findings Bones: Osteoporosis with dynamic hip screw fixation of healing intertrochanteric fracture Joints: Minor bilateral hip arthritis and moderate degenerative disc disease Scoliotic deformity with rightward lumbar area Right iliac wing irregularity, possibly postsurgical IMPRESSION: Dynamic hip screw fixation of healing right intertrochanteric fracture Electronically signed by:Wolfgang Ibarra. Transcribed by: [email or web address], User Resident: Electronically Signed by: WOLFGANG IBARRA @ 10/01/2018 04:11 PM Normal [facility] Comment on above: Order Comment: No: D o not add to previous draw HIP RIGHT 1 OR 2 VWS WITH PE LVISon 08-24-2018 HIP RIGHT 1 OR 2 VWS WITH PELVIS [facility] Department of Radiology [address] [place] [phone] ======== Patient Name: QING FISCHER : 1945 Sex: F Age: Race: White Pt. Location: Patient Status: Ordered Date: 08/24/2018 1:05:00 PM Completed Date: 08/24/2018 01:02 PM Requesting Provider: LAURIE TOWNSEND Attending Provider: Report Copy To: Signs & Symptoms: S72.141D Displ intertroch fx r femur, subs for clos fx w routn heal I10 History: [place] Comments: , , , Ordering Provider - LAURIE TOWNSEND PA-C , Exam: HIP RIGHT 1 OR 2 VWS WITH PELVIS ======== HIP RIGHT 1 OR 2 VWS WITH PELVIS 08/24/2018 1:02 PM EST SIGNS AND SYMPTOMS: S72.141D Displ intertroch fx r femur, subs for clos fx w routn heal I10 TECHNOLOGIST COMMENTS: ortho follow up rt hip fracture 6 weeks ago QUESTION FOR THE RADIOLOGIST: , , , Ordering Provider - LAURIE TOWNSEND PA-C , PROTOCOL: AP(PA) and Lateral views were obtained. COMPARISON: July 26, 2018 FINDINGS: Soft tissues: Unchanged Bones: Unchanged Joints: Unchanged IMPRESSION: Dynamic hip screw fixation of intertrochanteric fracture as before superimposed upon osteoporotic skeleton with degenerative changes and scoliosis of the spine Electronically signed by:Wolfgang Ibarra. Transcribed by: [email or web address], User Resident: Electronically Signed by: WOLFGANG IBARRA @ 08/24/2018 02:16 PM Normal [facility] Comment on above: Order Comment: No: D o not add to previous draw HIP RIGHT 1 OR 2 VWS WITH PE LVISon 07-26-2018 HIP RIGHT 1 OR 2 VWS WITH PELVIS [facility] Department of Radiology [address] [place] [address] ======== Patient Name: QING FISCHER : 1945 Sex: F Age: Race: White Pt. Location: 84 Patient Status: Ordered Date: 07/26/2018 9:40:00 AM Completed Date: 07/26/2018 09:43 AM Requesting Provider: LAURIE TOWNSEND Attending Provider: Report Copy To: Signs & Symptoms: S72.141D Displ intertroch fx r femur, subs for clos fx w routn heal I10 History: [place] Comments: , Views (X-RAY, HIP): Radiologic Protocol , Weight Bearing?: N , With or Without Brace/Cast/Collar: With , Views (X-RAY, HIP): Radiologic Protocol , Weight Bearing?: N , With or Without Brace/Cast/Collar: With , , , Ordering Provider - LAURIE TOWNSEND PA-C , Exam: HIP RIGHT 1 OR 2 VWS WITH PELVIS ======== HIP RIGHT 1 OR 2 VWS WITH PELVIS 07/26/2018 9:43 AM EDT SIGNS AND SYMPTOMS: S72.141D Displ intertroch fx r femur, subs for clos fx w routn heal I10 TECHNOLOGIST COMMENTS: Patient states post right hip surgery x 2 weeks ortho follow up of right hip with pelvis QUESTION FOR THE RADIOLOGIST: , Views (X-RAY, HIP): Radiologic Protocol , Weight Bearing?: N , With or Without Brace/Cast/Collar: With , Views (X-RAY, HIP): Radiologic Protocol , Weight Bearing?: N , With ...More In Sending System PROTOCOL: AP(PA) and Lateral views were obtained. COMPARISON: July 13, 2018 FINDINGS: Soft tissues: Postoperative change Bones: Dynamic hip screw fixation of right proximal femur in good alignment Joints: Mild bilateral hip arthritis Scoliotic and degenerative changes in spine IMPRESSION: Dynamic hip screw fixation of right femur fracture in good alignment Electronically signed by:Wolfgang Ibarra. Transcribed by: [email or web address], User Resident: Electronically Signed by: WOLFGANG IBARRA @ 07/26/2018 01:34 PM Normal [facility] Comment on above: Order Comment: No: D o not add to previous draw BASIC METABOLIC PANELon 10-2 Calcium mass conc 8.3 mg/dL Low 8.6-10.3 [facility] Comment on above: Order Comment: No: D o not add to previous draw Performed By: #### 0 [id number] #### [facility] [address] [place] [address], [place] Chloride molar conc 103 mmol/L Normal 98-107 [facility] Comment on above: Order Comment: No: D o not add to previous draw Performed By: #### 0 [id number] #### [facility] [address] [place] [address], [place] CO2 molar conc 26 mmol/L Normal 21-31 [facility] Comment on above: Order Comment: No: D o not add to previous draw Performed By: #### 0 [id number] #### [facility] [address] [place] [address], [place] Creatinine mass conc 0.56 mg/dL Low 0.60-1.20 [facility] Comment on above: Order Comment: No: D o not add to previous draw Performed By: #### 0 [id number] #### [facility] [address] [place] [address], [place] GFR/1.73 sq M predicted among blacks MDRD vol rate/area (S/P/Bld) mL/min/{1.73_m2} Normal >60 [facility] Comment on above: Order Comment: No: D o not add to previous draw Result Comment: Calc ulation may not be valid for patients over 70 years Performed By: #### 0 [id number] #### [facility] [address] [place] [address], [place] GFR/1.73 sq M predicted among non-blacks MDRD vol rate/area (S/P/Bld) mL/min/{1.73_m2} Normal >60 [facility] Comment on above: Order Comment: No: D o not add to previous draw Result Comment: Calc ulation may not be valid for patients over 70 years Performed By: #### 0 [id number] #### [facility] [address] [place] [address], [facility] Glucose mass conc 114 mg/dL High 70-100 [facility] Comment on above: Order Comment: No: D o not add to previous draw Performed By: #### 0 [id number] #### [facility] [address] [place] [address], [facility] Potassium molar conc 4.0 mmol/L Normal 3.5-5.1 [facility] Comment on above: Order Comment: No: D o not add to previous draw Performed By: #### 0 [id number] #### [facility] [address] [place] [address], [place] Sodium molar conc 136 mmol/L Normal 136-145 [facility] Comment on above: Order Comment: No: D o not add to previous draw Performed By: #### 0 [id number] #### [facility] [address] [place] [address], [facility] Urea nitrogen mass conc 9 mg/dL Normal 7-25 [facility] Comment on above: Order Comment: No: D o not add to previous draw Performed By: #### 0 [id number] #### [facility] [address] [place] [address], [place] CBC COMPLETE BLOOD COUNTon Erythrocyte distribution width Ratio (RBC) 13.8 % Normal 11.5-15.0 [facility] Comment on above: Order Comment: No: D o not add to previous draw Performed By: #### [id number] #### [facility] [address] [place] [address], [place] Hematocrit Volume Fraction (Bld) 30.5 % Low 36.0-45.0 [facility] Comment on above: Order Comment: No: D o not add to previous draw Performed By: #### [id number] #### [facility] [address] [place] [address], [facility] Hemoglobin mass conc (Bld) 10.1 g/dL Low 12.0-15.0 [facility] Comment on above: Order Comment: No: D o not add to previous draw Performed By: #### 5 [id number] #### [facility] [address] [place] [address], [facility] MCH Entitic mass (RBC) 29.9 pg Normal 27.0-33.0 [facility] Comment on above: Order Comment: No: D o not add to previous draw Performed By: #### 5 [id number] #### [facility] [address] [place] [address], [facility] MCHC mass conc (RBC) 33.1 g/dL Normal 32.0-35.0 [facility] Comment on above: Order Comment: No: D o not add to previous draw Performed By: #### 5 [id number] #### [facility] [address] [facility] [address], [facility] MCV Entitic volume (RBC) 90.2 fL Normal 82.0-98.0 [facility] Comment on above: Order Comment: No: D o not add to previous draw Performed By: #### 5 [id number] #### [facility] [address] [place] [address], [facility] Nucleated RBC/100 WBC Ratio (Bld) 0 % Normal 0-0 [facility] Comment on above: Order Comment: No: D o not add to previous draw Performed By: #### [id number] #### [facility] [address] [place] [id number], [facility] PLAT CNT 180 10*3/uL Normal 150-400 [facility] Comment on above: Order Comment: No: D o not add to previous draw Performed By: #### 5 [id number] #### [facility] [address] [place] [address], [facility] RBC #/vol (Bld) 3.38 10*6/uL Low 3.80-5.00 [facility] Comment on above: Order Comment: No: D o not add to previous draw Performed By: #### 5 [id number] #### [facility] [address] [place] [address], [facility] WBC #/vol (Bld) 8.43 10*3/uL Normal 4.00-10.60 [facility] Comment on above: Order Comment: No: D o not add to previous draw Performed By: #### 5 [id number] #### [facility] [address] Operative Reporton 10-20-201 8 Operative Report MR#: [id number] I [facility] Pt. Name: Qing Fischer Room #: [id number] Discharge Date: Birthdate: 1945 OPERATIVE REPORT DATE OF SURGERY: 07/13/2018 SURGEON: Abiodun Bahena M.D. ASSISTANTS: 1. Dr. Nunez. 2. Dr. Aaron. 3. Dr. Elizabeth. PREOPERATIVE DIAGNOSIS: Right hip stable intertrochanteric fracture. POSTOPERATIVE DIAGNOSIS: Right hip stable intertrochanteric fracture. PROCEDURE PERFORMED: Open reduction and internal fixation, right intertrochanteric fracture. ANESTHESIA: General. FLUIDS: Per anesthesia protocol. BLOOD LOSS: 200 mL. COMPLICATIONS: None. SPECIMENS: None. IMPLANTS: Biomet variable angle hip screw super lag with 4.5 mm cortical screws. OPERATIVE INDICATIONS: This is a 73-year-old female, who was admitted 1 day ago after a fall from standing. She sustained a right hip intertrochanteric fracture. We discussed operative intervention. She was amenable to the plan. All risks, benefits, and alternatives were discussed. Informed consent was obtained. OPERATION IN DETAIL: The patient was greeted in the preoperative holding area. Informed consent was confirmed. Right lower extremity was marked by the operating surgeon. The patient was brought to the OR where general anesthesia was smoothly induced. The patient was transferred to the fracture table. She was prepped and draped in usual sterile fashion. Time-out procedure was performed. We began by taking AP and lateral x-rays, which demonstrated the fracture to be very well reduced. We then placed our guide pin just above the level of the lesser trochanter making sure for placement of less than 25 mm from the tip of the head on AP and lateral planes. We then measured an 85. We then drilled for an 85 and did this under fluoroscopic guidance entering the joint. Once we had drilled, we placed our super lag screw followed by our sideplate and sideplate rested nicely against the far cortex of the femur. We malleted this with a pusher into place and then drilled and filled the 4 cortical holes with 4.5 mm screws. We then used a compression screw and obtained x-rays throughout this process to make sure that we were not over compressing. We then copiously irrigated the wound with normal sterile saline and Betadine solution followed by normal sterile saline. We placed a Hemovac drain and we closed the wound with 0 Vicryl followed by 2-0 Vicryl, followed by 3-0 Novafil. Dry sterile dressing was then placed. The patient was transferred off the fracture table and onto the regular hospital bed. She was extubated there. She returned to the PACU in good condition. Dr. Bahena was present for all critical portions of the procedure and he made all critical decisions regarding this patient. Electronically Signed by: Abiodun Bahena M.D. 07/19/2018 01:39 P Abiodun Bahena M.D. I was present for the noriega and critical portions and I was otherwise immediately available to assist. Date Dict: 07/13/2018/07:20 P/Fabien Nunez M.D. Date Trans: 07/13/2018 11:30 P/richard [id number] cc: Nona Mcknight M.D. [address] [place] [address] Normal [facility] BASIC METABOLIC PANELon - Calcium mass conc 9.2 mg/dL Normal 8.6-10.3 [facility] Comment on above: Order Comment: No: D o not add to previous draw Performed By: #### 0 [id number] #### [facility] [address] [place] [address], [place] Chloride molar conc 104 mmol/L Normal 98-107 [facility] Comment on above: Order Comment: No: D o not add to previous draw Performed By: #### 0 [id number] #### [facility] [address] [place] [address], [place] CO2 molar conc 28 mmol/L Normal 21-31 [facility] Comment on above: Order Comment: No: D o not add to previous draw Performed By: #### 0 [id number] #### [facility] [address] [place] [address], [place] Creatinine mass conc 0.66 mg/dL Normal 0.60-1.20 [facility] Comment on above: Order Comment: No: D o not add to previous draw Performed By: #### 0 [id number] #### [facility] [address] [place] [address], [place] GFR/1.73 sq M predicted among blacks MDRD vol rate/area (S/P/Bld) mL/min/{1.73_m2} Normal >60 [facility] Comment on above: Order Comment: No: D o not add to previous draw Result Comment: Calc ulation may not be valid for patients over 70 years Performed By: #### 0 [id number] #### [facility] [address] [place] [address], [place] GFR/1.73 sq M predicted among non-blacks MDRD vol rate/area (S/P/Bld) mL/min/{1.73_m2} Normal >60 [facility] Comment on above: Order Comment: No: D o not add to previous draw Result Comment: Calc ulation may not be valid for patients over 70 years Performed By: #### 0 [id number] #### [facility] [address] [place] [address], [facility] Glucose mass conc 117 mg/dL High 70-100 [facility] Comment on above: Order Comment: No: D o not add to previous draw Performed By: #### 0 0071 #### [facility] [address] [place] [address], [facility] Potassium molar conc 4.1 mmol/L Normal 3.5-5.1 [facility] Comment on above: Order Comment: No: D o not add to previous draw Performed By: #### 0 0071 #### [facility] [address] [place] [address], [facility] Sodium molar conc 138 mmol/L Normal 136-145 [facility] Comment on above: Order Comment: No: D o not add to previous draw Performed By: #### 0 0071 #### [facility] [address] [place] [address], [facility] Urea nitrogen mass conc 16 mg/dL Normal 7-25 [facility] Comment on above: Order Comment: No: D o not add to previous draw Performed By: #### 0 [id number] #### [facility] [address] [place] [address], [facility] CBC COMPLETE BLOOD COUNTon Erythrocyte distribution width Ratio (RBC) 13.9 % Normal 11.5-15.0 [facility] Comment on above: Order Comment: No: D o not add to previous draw Performed By: #### 5 [id number] #### [facility] [address] [place] [address], [facility] Hematocrit Volume Fraction (Bld) 41.6 % Normal 36.0-45.0 [facility] Comment on above: Order Comment: No: D o not add to previous draw Performed By: #### 5 [id number] #### [facility] [address] Hemoglobin mass conc (Bld) 13.3 g/dL Normal 12.0-15.0 [facility] Comment on above: Order Comment: No: D o not add to previous draw Performed By: #### 5 [id number] #### [facility] [address] [facility] Entitic mass (RBC) 29.0 pg Normal 27.0-33.0 [facility] Comment on above: Order Comment: No: D o not add to previous draw Performed By: #### 5 [id number] #### [facility] [address] MCHC mass conc (RBC) 32.0 g/dL Normal 32.0-35.0 [facility] Comment on above: Order Comment: No: D o not add to previous draw Performed By: #### 5 [id number] #### [facility] [address] [facility] Entitic volume (RBC) 90.8 fL Normal 82.0-98.0 [facility] Comment on above: Order Comment: No: D o not add to previous draw Performed By: #### 5 [id number] #### [facility] [address] Nucleated RBC/100 WBC Ratio (Bld) 0 % Normal 0-0 [facility] Comment on above: Order Comment: No: D o not add to previous draw Performed By: #### 5 [id number] #### [facility] [address] [place] [address], [facility] PLAT CNT 189 10*3/uL Normal 150-400 [facility] Comment on above: Order Comment: No: D o not add to previous draw Performed By: #### 5 0608 #### [facility] [address] [place], [place] [id number] [place] [address] RBC #/vol (Bld) 4.58 10*6/uL Normal 3.80-5.00 [facility] Comment on above: Order Comment: No: D o not add to previous draw Performed By: #### 5 0608 #### [facility] [address] [place] [address], [facility] WBC #/vol (Bld) 9.00 10*3/uL Normal 4.00-10.60 [facility] Comment on above: Order Comment: No: D o not add to previous draw Performed By: #### 5 0608 #### [id number] [place] [address] CT LOWER EXTREMITY WO CONTRA ST RIGHTon 07-13-2018 CT LOWER EXTREMITY WO CONTRAST RIGHT [facility] Department of Radiology [address] [place] [id number] ======== Patient Name: QING FISCHER : 1945 Sex: F Age: Race: White Pt. Location: [id number] Patient Status: I Ordered Date: 07/13/2018 7:15:00 AM Completed Date: 07/13/2018 09:59 AM Requesting Provider: OSWALDO MARQUEZ Attending Provider: ABIODUN BAHENA Report Copy To: Signs & Symptoms: Fracture History: Patient history not available Comments: R/O Fractures, R hip for basicervical fx Exam: CT LOWER EXTREMITY WO CONTRAST RIGHT ======== CT LOWER EXTREMITY WO CONTRAST RIGHT 07/13/2018 10:00 AM EDT SIGNS AND SYMPTOMS: Fracture TECHNOLOGIST COMMENTS: rt hip pain s/p fall yesterday QUESTION FOR THE RADIOLOGIST: R/O Fractures, R hip for basicervical fx PROTOCOL: Axial CT images of the extremity were obtained without IV contrast. TECHNIQUE: Multidetector CT axial slices of the right hip without IV contrast. Multiplanar reformats were performed and viewed on a separate workstation and reviewed to further define anatomy and possible pathology. COMPARISON: None. FINDINGS: Skeleton: No displaced fractures. Likely nondisplaced fracture along the right basicervical area as per clinical suspicion. However CT is not as definitive as MR. Moderate effusion. Other findings include osteoporosis, arthritis, scattered enthesophytes and degenerative changes in the spine. Soft tissues: No injury. Symmetrical mild muscle atrophy. IMPRESSION: Highly suspicious for nondisplaced basicervical right femoral neck fracture. MR would be definitive. Electronically signed by:Wolfgang Ibarra. Transcribed by: [email or web address], User Resident: Electronically Signed by: WOLFGANG IBARRA @ 07/13/2018 10:26 AM Normal [facility] Comment on above: Order Comment: R/O F ractures, R hip for basicervical fx HIP RIGHT 1 OR 2 VWS WITH PE LVISon 07-13-2018 HIP RIGHT 1 OR 2 VWS WITH PELVIS [facility] Department of Radiology [address] [place] [id number] ======== Patient Name: QING FISCHER : 1945 Sex: F Age: Race: White Pt. Location: [id number] Patient Status: I Ordered Date: 07/13/2018 12:55:00 PM Completed Date: 07/13/2018 06:56 PM Requesting Provider: ABIODUN BAHENA Attending Provider: ABIODUN BAHENA Report Copy To: Signs & Symptoms: Right hip VHS with History: Right hip VHS with Comments: Right hip VHS with Exam: HIP RIGHT 1 OR 2 VWS WITH PELVIS ======== HIP RIGHT 1 OR 2 VWS WITH PELVIS 07/13/2018 6:56 PM EDT SIGNS AND SYMPTOMS: Right hip VHS with TECHNOLOGIST COMMENTS: Intra op. Right hip VHS. Dr Bahena used 2 min 33 seconds of fluoro. QUESTION FOR THE RADIOLOGIST: Right hip VHS with PROTOCOL: AP(PA) and Lateral views were obtained. COMPARISON: None FINDINGS: Intraoperative fluoroscopic images obtained for right hip hardware fixation by Dr. Ledesmaem Fluoroscopy time of 2 minutes and 33 seconds. IMPRESSION: 1. For documentation purposes only Approved by:Zacarias Lechuga on 07/14/2018 3:23 AM EDT. I, Anjel Fitzgerald, have reviewed the images and report and concur with these findings. Electronically signed by:Anjel Fitzgerald. Transcribed by: [email or web address], User Resident: ZACARIAS LECHUGA Electronically Signed by: ANJEL FITZGERALD @ 07/14/2018 08:57 PM I personally read this/these film(s) with this resident Normal [facility] Comment on above: Order Comment: Right hip VHS with POC GLUCOSE LABon 07-13-2018 Glucose mass conc 128 mg/dL High 70-100 [facility] Comment on above: Performed By: #### 8 [id number] #### [place] [address], [facility] PROTHROMBIN TIMEon 8 INR Coag RelTime (PPP) 1.03 {INR} Normal 0.91-1.16 [facility] Comment on above: Order Comment: No: D o not add to previous draw Result Comment: ACCC P RECOMMENDED INR FOR WARFARIN THERAPY ------- ------- CONDITION INR PROPHYLAXIS OF VENOUS THROMBOSIS 2-3 (HIGH-RISK SURGERY) TREATMENT OF VENOUS THROMBOSIS 2-3 TREATMENT OF PULMONARY EMBOLISM 2-3 PREVENTION OF SYSTEMIC EMBOLISM: 2-3 ACUTE MYOCARDIAL INFARCTION TISSUE HEART VALVES VALVULAR HEART DISEASE ATRIAL FIBRILLATION RECURRENT SYSTEMIC EMBOLISM MECHANICAL HEART VALVE 2.5-3.5 FROM: ORAL ANTICOAGULANTS. MECHANISM OF ACTION, CLINICAL EFFECTIVENESS, AND OPTIMAL THERAPEUTIC RANGE. CHEST 1995;108:231S-246S. Performed By: #### 5 [id number] #### [facility] [address] Prothrombin time (PT) Coag time (PPP) 13.5 s Normal 12.3-14.8 [facility] Comment on above: Order Comment: No: D o not add to previous draw Result Comment: ALL RESULTS MUST BE INTERPRETED WITH RESPECT TO BLOOD DRAWING ARTIFACT OR DILUTION ERROR OF ANTICOAGULANT AT THE TIME OF SAMPLING. Performed By: #### 5 [id number] #### [facility] [address] [facility] [address], [facility] RBC'S 2 UNITSon 07-13-2018 CROSSMATCH INTERP 1 COMP Normal [facility] Comment on above: Order Comment: Other Performed By: #### 8 [id number] #### [facility] [address] [place] [address], [facility] CROSSMATCH INTERP 2 COMP Normal [facility] Comment on above: Order Comment: Other Performed By: #### 8 [id number] #### [facility] [address] [place] [address], [facility] Protein mass conc 336 g/dL Normal [facility] Comment on above: Order Comment: Other Performed By: #### 8 [id number] #### [facility] [address] [place] [address], [facility] Protein mass conc RE Normal [facility] Comment on above: Order Comment: Other Result Comment: Resu lt changed by IF on 07/16/2018 23:15. The previous value was XM. Performed By: #### 8 [id number] #### [facility] [address] [place] [address], [facility] UNIT ABO 1 O Normal [facility] Comment on above: Order Comment: Other Performed By: #### 8 [id number] #### [facility] [address] [place] [address], [facility] UNIT ABO 2 O Normal [facility] Comment on above: Order Comment: Other Performed By: #### 8 [id number] #### [facility] [address] [place] [address], [facility] UNIT ID 1 [id number] Normal The [facility] Comment on above: Order Comment: Other Performed By: #### 8 [id number] #### [facility] [address] [place] [address], [facility] UNIT ID 2 [id number] Normal [facility] Comment on above: Order Comment: Other Performed By: #### 8 [id number] #### [facility] [address] [place] [address], [place] UNIT RH 1 Positive Normal [facility] Comment on above: Order Comment: Other Performed By: #### 8 [id number] #### [facility] [address] [place] [address], [facility] UNIT RH 2 Positive Normal [facility] Comment on above: Order Comment: Other Performed By: #### 8 [id number] #### [facility] [address] [place] [address], [facility] TYPE AND SCREENon 07-13-2018 ABO INTERPRETATION O Normal [facility] Comment on above: Performed By: #### 6 2586 #### [facility] [address] [place] [address], [facility] RH INTERPRETATION Positive Normal [facility] Comment on above: Performed By: #### 6 2586 #### [facility] [address] [place], [place] [id number] [place] [address] Vital Signs Date Time Vital Sign Value Performing Clinician Dariai jenise 01-11-2024 14:39-0400 Body height 152.4 cm Wolfgang Chou PA-C Work Phone: [facility] 01-11-2024 14:39-0400 Body weight 60.78 kg Wolfgang Chou PA-C Work Phone: [facility] 07-18-2023 11:37-0400 Body height 152.4 cm Tony Combs MD Work Phone: [facility] 07-18-2023 11:37-0400 Body weight 62.14 kg Tony Combs MD Work Phone: [facility] 04-06-2019 12:11-0400 Body Temperature 98.1 [degF] [facility] 04-06-2019 12:11-0400 BP Diastolic 71 mm[Hg] [facility] 04-06-2019 12:11-0400 BP Systolic 148 mm[Hg] [facility] 04-06-2019 12:11-0400 Pulse (Heart Rate) 68 /min [facility] 04-06-2019 12:11-0400 Pulse Oximetry 98 % [facility] 04-06-2019 11:52-0400 Respiratory Rate 18 /min [facility] 04-06-2019 10:43-0400 Body weight 65.86 kg Shell Hawkins [facility] Encounters Encounter Date Encounter Type Care Provider Facility Start: 07-23-2024 ambulatory Lonny Angel CHRISTINA Facility :[facility] Start: 07-23-2024 End: 07-23-2024 Patient encounter procedure Lonny Ortiz CHRISTINA [facility] Start: 06-28-2024 [facility] Start: 04-25-2024 End: 04-25-2024 ambulatory NONA Sutton Danie Facility:[facility] Start: 04-25-2024 End: 04-25-2024 Patient encounter procedure Wolfgang Chou PA-C Work Phone: Orthopaedics Comment on above: S/P reverse total sh oulder arthroplasty, left (Primary Dx) Start: 04-25-2024 End: 04-25-2024 Subsequent hospital visit by physician Meagan [facility] Work Phone: Radiology Comment on above: S/P reverse total sh oulder arthroplasty, left [Z96.612] Start: 01-11-2024 End: 01-11-2024 ambulatory [facility] Facility:[facility] Start: 01-11-2024 End: 01-11-2024 Patient encounter procedure Wolfgang Chou PA-C Work Phone: Orthopaedics Comment on above: S/P reverse total sh oulder arthroplasty, left (Primary Dx) Start: 01-11-2024 ambulatory [facility] Facility: [facility] Start: 01-11-2024 End: 01-11-2024 Subsequent hospital visit by physician Meagan [facility] Comment on above: S/P reverse total sh oulder arthroplasty, left [Z96.612] Start: 12-26-2023 End: 12-26-2023 ambulatory Romina Darnell OTR/L Work Phone: [facility] Comment on above: Decreased range of m otion of left shoulder (Primary Dx); S/P reverse total shoulder arthroplasty, left; Nontraumatic complete tear of rotator cuff, left; Rotator cuff tear arthropathy of left shoulder Start: 12-19-2023 End: 12-19-2023 ambulatory Romina Hallgren OTR/L Work Phone: [employer] [facility] Comment on above: Decreased range of m otion of left shoulder (Primary Dx); S/P reverse total shoulder arthroplasty, left; Nontraumatic complete tear of rotator cuff, left; Rotator cuff tear arthropathy of left shoulder Start: 12-12-2023 End: 12-12-2023 ambulatory Romina Hallgren OTR/L Work Phone: [employer] [facility] Comment on above: Decreased range of m otion of left shoulder (Primary Dx); S/P reverse total shoulder arthroplasty, left; Nontraumatic complete tear of rotator cuff, left; Rotator cuff tear arthropathy of left shoulder Start: 12-05-2023 End: 12-05-2023 ambulatory Romina Hallgren OTR/L Work Phone: [employer] [facility] Comment on above: Decreased range of m otion of left shoulder (Primary Dx); S/P reverse total shoulder arthroplasty, left; Nontraumatic complete tear of rotator cuff, left; Rotator cuff tear arthropathy of left shoulder Start: 11-28-2023 End: 11-28-2023 ambulatory NONA MCKNIGHT Facility:[facility] Start: 11-21-2023 End: 11-21-2023 ambulatory Romina Hallgren OTR/L Work Phone: [employer] [facility] Comment on above: Decreased range of m otion of left shoulder (Primary Dx); S/P reverse total shoulder arthroplasty, left; Nontraumatic complete tear of rotator cuff, left; Rotator cuff tear arthropathy of left shoulder Start: 11-14-2023 End: 11-14-2023 ambulatory Romina Hallgren OTR/L Work Phone: [employer] [facility] Comment on above: Decreased range of m otion of left shoulder (Primary Dx); S/P reverse total shoulder arthroplasty, left; Nontraumatic complete tear of rotator cuff, left; Rotator cuff tear arthropathy of left shoulder Start: 11-09-2023 End: 11-09-2023 Patient encounter procedure Wolfgang Chou PA-C Work Phone: Orthopaedics Comment on above: S/P reverse total sh oulder arthroplasty, left (Primary Dx); Nontraumatic complete tear of rotator cuff, left; Closed displaced fracture of acromial process, unspecified laterality, sequela Start: 11-09-2023 End: 11-09-2023 ambulatory NONA MCKNIGHT Facility:[facility] Start: 11-09-2023 End: 11-09-2023 Subsequent hospital visit by physician [facility]r [facility] Work Phone: Radiology Comment on above: S/P reverse total sh oulder arthroplasty, left [Z96.612] Start: 11-06-2023 End: 11-06-2023 ambulatory Romina Darnell OTR/L Work Phone: [facility] Comment on above: Decreased range of m otion of left shoulder (Primary Dx); S/P reverse total shoulder arthroplasty, left; Nontraumatic complete tear of rotator cuff, left; Rotator cuff tear arthropathy of left shoulder Start: 10-30-2023 End: 10-30-2023 ambulatory [facility] Cristian COMBS Facility:[facility] Start: 10-26-2023 End: 10-26-2023 ambulatory TONY COMBS Facility:[facility] Start: 10-24-2023 End: 10-24-2023 ambulatory WOLFGANG CHOU Facility:[facility] Start: 10-16-2023 End: 10-16-2023 ambulatory WOLFGANG CHOU Facility:[facility] Start: 10-12-2023 End: 10-12-2023 ambulatory WOLFGANG CHOU Facility:[facility] Start: 10-02-2023 End: 10-02-2023 ambulatory NONA MCKNIGHT Facility:[facility] Start: 09-29-2023 End: 09-30-2023 ambulatory WOLFGANG CHOU Facility:[facility] Start: 09-27-2023 End: 09-27-2023 ambulatory Nilam Garnica [facility] Start: 09-26-2023 ambulatory Nilam Garnica [facility]: [facility] Start: 09-15-2023 End: 09-15-2023 ambulatory TONY COMBS Facility:[facility] Start: 09-12-2023 Orders Only Tony mosley MD Work Phone: Orthopaedics Comment on above: Closed displaced fra cture of acromial process, unspecified laterality, sequela (Primary Dx); Status post reverse arthroplasty of left shoulder Start: 09-11-2023 End: 09-12-2023 ambulatory TONY COMBS Facility:[facility] Start: 09-07-2023 Encounter for other preprocedural examination NONA MCKNIGHT [facility] Start: 09-07-2023 End: 09-07-2023 ambulatory KRISTI VASQUEZ Facility:[facility] Start: 08-29-2023 End: 08-29-2023 ambulatory [facility] Facility:[facility] Start: 08-29-2023 End: 08-29-2023 Patient encounter procedure Tony Combs MD Work Phone: Orthopaedics Comment on above: Rotator cuff tear ar thropathy of left shoulder (Primary Dx); Closed displaced fracture of acromial process, unspecified laterality, sequela; Nontraumatic complete tear of rotator cuff, left; Injury of tendon of long head of biceps, left, initial encounter; Contracture of shoulder, left Start: 08-01-2023 ambulatory TONY COMBS [facility] Start: 07-18-2023 End: 07-18-2023 ambulatory TONY COMBS Facility:[facility] Start: 07-18-2023 End: 07-18-2023 Patient encounter procedure Tony Combs MD Work Phone: Orthopaedics Comment on above: Rotator cuff tear ar thropathy of left shoulder (Primary Dx); Chronic right shoulder pain; Nontraumatic complete tear of rotator cuff, left; Injury of tendon of long head of biceps, left, initial encounter; Closed displaced fracture of acromial process, unspecified laterality, sequela Start: 07-18-2023 End: 07-18-2023 Subsequent hospital visit by physician [facility] Radiology Comment on above: Chronic right should er pain [M25.511, G89.29] Start: 02-08-2023 End: 02-09-[address] NONA MCKNIGHT . Facility: Start: 02-07-2023 End: 02-08-[address] NONA MCKNIGHT . Facility:[facility] Start: 10-25-2022 End: 10-26-[address] PRABHJOT ANDERSON Facility:[facility] Start: 10-18-2022 End: 10-19-[address] DOCTOR GARCIA Facility:[facility] Start: 03-03-2022 End: 03-04-[address] NONA MCKNIGHT . Facility:[facility] Start: 10-20-2020 End: 10-20-2020 Orders Only Ministerio Favio Gross Work Phone: [facility] Start: 04-06-2019 End: 04-06-2019 [facility] Start: 04-06-2019 End: 04-06-2019 Emergency department patient visit Shell Hawkins Work Phone: [facility] Emergency Department Comment on above: Acute non-recurrent frontal sinusitis (Primary Dx) Start: 11-01-2018 End: 11-02-2018 Patient encounter procedure LAURIE TOWNSEND Facility:[facility] Start: 10-01-2018 End: 10-02-2018 Patient encounter procedure LAURIE TOWNSEND Facility:[facility] Start: 08-24-2018 End: 08-25-2018 Patient encounter procedure LAURIE TOWNSEND Facility:[facility] Start: 07-26-2018 End: 07-27-2018 Patient encounter procedure LAURIE TOWNSEND Facility:[facility] Start: 07-13-2018 End: 07-19-2018 Evaluation and management of inpatient NONA HOY Facility:[facility] Procedures Date Procedure Procedure Detail Performing Clinician Start: 04-25-2024 Radex shoulder compl ete minimum 2 views Wolfgang Chou PA-C Work Phone: Start: 01-11-2024 Radex shoulder compl ete minimum 2 views Wolfgang Chou PA-C Work Phone: Start: 11-09-2023 Radex shoulder compl ete minimum 2 views Wolfgang Chou PA-C Work Phone: Start: 09-07-2023 Antibody screen NONA MCKNIGHT Comment on above: Order Comment: Speci men Type: BLOOD SPECIMEN Ordering Facility: [facility] Address: [address] [place] [address] Performed By: #### T [id number] #### [facility] CLIA [id number] [address] [place] [address] [place] Start: 04-06-2019 12 lead ECG Shell Hawkins Work Phone: Start: 04-06-2019 Basic metabolic 2000 panel - Serum or Plasma Shell Hawkins Work Phone: Start: 04-06-2019 Complete blood count with white cell differential, automated Shell Hawkins Work Phone: Start: 04-06-2019 Complete blood count with white cell differential, manual Shell Hawkins Work Phone: Start: 04-06-2019 LIGHT BLUE TOP Shell Velarde tlnicole Hawkins Work Phone: Start: 04-06-2019 LIGHT GREEN TOP Shell Mcneal stmira Hawkins Work Phone: Start: 04-06-2019 RAINBOW DRAW Shell Hawkins Work Phone: Start: 07-13-2018 Antibody screen LAURIE TOWNSEND Comment on above: Performed By: #### [id number] #### [facility] [address] [place] [address], [facility] Start: 07-13-2018 INSERTION OF INT FIX INTO R UP FEMUR, OPEN APPROACH ABIODUN EBRAHEIM Start: 03-22-2007 Colonoscopy Lonny MANCUSO Arthroplasty of knee Lonny VASQUEZ Closed fracture of h ip (disorder) Lonny VASQUEZ Elbow fracture - héctor sed (disorder) Lonny VASQUEZ Hysterectomy Lonny VASQUEZ Partial shoulder replacement Lonny VASQUEZ Plan of Treatment Date Care Activity Detail Author Start: 09-12-2026 Diabetes Screening Diabetes Screenin [facility] Start: 04-27-2025 Diabetes Screening Diabetes Screenin g [facility] Start: 10-31-2024 End: 10-31-2024 Patient encounter procedure 10/31/2024 1:40 PM EST Office Visit Orthopaedics [id number] [place] [address] Wolfgang Chou PA-C [id number] [place] [address] 6 Month Follow Up - left shoulder pain Orthopaedics Comment on above: 6 Month Follow Up - left shoulder pain Start: 05-26-2024 Influenza vaccination Influenza Vacc ine (#1) [facility] Start: 10-27-2023 Covid-19 Vaccine () Covid-19 Vaccine () [facility] Start: 09-25-2023 Advance Directive Discussion Advance Directive Discussion [facility] Start: 09-25-2023 Behavioral Health Screening Behavioral Health Screening [facility] Start: 09-25-2023 Depression Assessment Depression Ass essment [facility] Start: 09-25-2022 Advance Directive Discussion Advance Directive Discussion [facility] Start: 09-25-2022 Depression Assessment Depression Ass essment [facility] Start: 12-26-2010 Diabetes Screening Diabetes Screenin g [facility] Start: 2008 Bone Density Screening Bone Density Screening [facility] Start: 2008 Screening for osteoporosis Bone Density Screening [facility] Start: 2003 RSV Vaccine (1 - 1-d ose 60+ series) RSV Vaccine (1 - 1-dose 60+ series) [facility] Start: 1993 Shingrix Vaccine (1 of 2) Shingrix Vaccine (1 of 2) [facility] Start: 1962 Urine microalbumin profile DTaP,Tdap,Td Vaccine (1 - Tdap) [facility] Start: 1961 Annual PCP Team Litigator yadi Disease Visit Annual PCP Team Chronic Disease Visit [facility] Start: 1961 Anxiety Screening Anxiety Screening [facility] Start: 1961 Depression Screening Depression Scre ening [facility] End: 08-16-[address] CT [address] POST PROCESSING CT 3D POST PROCESSING Radiology Routine Rotator cuff tear arthropathy of left shoulder 1 Occurrences starting 07/18/2023 until 08/16/2024 [facility] Work Phone: Comment on above: 1 Occurrences starti ng 07/18/2023 until 08/16/2024 CT SHOULDER WO IVCON LEFT CT SHOULDER WO IVCON LEFT Radiology Routine Rotator cuff tear arthropathy of left shoulder Ordered: 07/18/2023 [facility] Work Phone: Comment on above: Ordered: 07/18/2023 XR SHOULDER GENERAL 3V OR MORE AP/TRUE AP/OTHER RIGHT XR SHOULDER GENERAL 3V OR MORE AP/TRUE AP/OTHER RIGHT Radiology Routine Chronic right shoulder pain 07/18/2023 12:37 PM EDT [facility] Work Phone: [facility] Immunizations Immunization Date Immunization Notes Care Provider Fa [facility] 06-26-2023 influenza virus vaccine, unspecified formulation Xr Stark Work Phone: [facility] 07-18-2022 SARS-CoV-2 (COVID-19 ) [id number] Lonny NILL [facility] 06-24-2021 SARS-CoV-2 (COVID-19 ) mRNA BNT-162b2 vax Lonny NILL [facility] Comment on above: Result Comment: 2023: [id number] 11-15-2020 SARS-CoV-2 (COVID-19 ) mRNA BNT-162b2 vax Lonny NILL [facility] Comment on above: Result Comment: 2023: [id number] 10-25-2020 SARS-CoV-2 (COVID-19 ) mRNA BNT-162b2 vax Lonny NILL [facility] Comment on above: Result Comment: 2023: [id number] Payers Date Payer Category Payer Unknown [id number] 2017 Medicare ANTHEM MANAGED Lesley BECK MEDIBLUE ESSENTIAL/PLUS/CONNECT/SNP O [id number] 2017-Present [id number] 2017 Medicare ANTHEM MANAGED M TIFFANY SINCLAIREM MEDIBLUE ESSENTIAL/PLUS/CONNECT/SNP O xxxxxxxxxxxx 2017-Present xxxxxxxxxxxx [id number] 1959 Unknown [id number] 1943 Unknown [id number] 1943 Unknown [id number] 1943 Unknown [id number] 1943 Unknown [id number] 1943 Unknown [id number] 1943 Unknown [id number] 1943 Unknown [id number] 1943 Unknown [id number] 1943 Unknown [id number] 1943 Unknown [id number] 1943 Unknown [id number] 1943 Unknown [id number] 1943 Unknown [id number] Medicare [id number] Social History Date Type Detail Facility Tobacco smoking stat [facility] Unknown if ever smoked [facility] Start: 1945 Sex Assigned At Not on file [facility] Start: 09-27-2023 Tobacco smoking stat [facility] Never smoked tobacco [facility] Start: 03-16-2015 End: 04-25-2024 Alcohol intake Current drinker of alcohol (finding) [facility] Start: 07-18-2023 History of Social function [facility] Start: 07-18-2023 Area Deprivation Index [facility] National Score (1-10 0), lower number is lower risk 86 [facility] Start: 11-09-2007 Alcohol Comment 1-2 glasses of wine with dinner most nights [facility] Start: 09-08-2023 Tobacco smoking stat [facility] Tobacco smoking consumption unknown [facility] Work Phone: Medical Equipment Procedure Code Equipment Code Equipment Origin al Text Equipment Identifier Dates Cement Simplex P Tobramycin Bone Full Dose Radiopaque Preblend Sterile - [id number] Start: 09-11-2023 Trabecular Metal Reverse Plus Shoulder Head 36mm 0deg [id number] Start: 09-11-2023 Liner 36mm 12d 6 5d Trabecular Metal Polyethylene H+6mm Shoulder Reverse - [id number] Start: 09-11-2023 Screw Ncb 4.5mm Protasul-64wf 30mm Bone Inverse Reverse Lock Sterile - [id number] Start: 09-11-2023 Wire Liz 1 .6mm Stainless Steel 5.5in Fixation Trocar Smooth Guide - [id number] Start: 09-11-2023 Cement Simplex P Tobramycin Bone Full Dose Radiopaque Preblend Sterile - [id number] Start: 09-11-2023 Trabecular Metal Reverse Plus Base Plate 15mm [id number] Start: 09-11-2023 Stem 12mm Trabec ular Metal Tivanium 130mm Humeral Reverse Sterile Shoulder - [id number] Start: 09-11-2023 Screw Ncb Anatom ical Shoulder 4.5mm Protasul-64wf 33mm Bone Inverse Reverse - [id number] Start: 09-11-2023 Wire Liz 1 .6mm Stainless Steel 5.5in Fixation Trocar Smooth Guide - [id number] Start: 09-11-2023 Clinical Notes 07-18-2023 to 04-25-2024 Wolfgang Chou PA-C - 04/25/2024 2:19 PM Wolfgang Mcnamara PA-C - 01/11/2024 3:42 PM EDTTammy Levy Tech - 01/11/2024 12:30 PM EDRomina Torres OTR/L - 12/26/2023 3:51 PM EDT Note Date & Type Note Facility 04-25-2024 History of Present illness Narrative Patient Name: QING FISCHER [facility] No: [id number] Date of Service: April 25, 2024 [facility] Established patient returns for interval follow-up status post Left shoulder reverse total Shoulder Arthroplasty, extensive capsular release, biceps tenodesis, open reduction internal fixation of acromion fracture 09/11/[address] Combs & left shoulder removal of prominent K wires under local anesthesia with Dr. Combs 10/30/2023. Patientreport overall doing very well since her last interval visit. Pain is reported as minimal as she is to return to functional activities. She has some intermittent achiness identified overlying the deltoid insertion but is pleased with her functional range of motion at this stage of her recovery. Pain is rated 0/10 in office today. PAIN EVALUATION No data found in the last 1 encounters. Allergies: Codeine, Amoxicillin, and Nickel Current Outpatient Medications Medication Sig CALCIUM CITRATE ORAL Take 2 tablets by mouth once daily. B cmplx 4/vit D3/C/folic/zinc (VITAL-D RX ORAL) Take by mouth. cholecalciferol, vitamin D3, (VITAMIN D3 ORAL) Take 1 tablet by mouth once daily. acetaminophen (TYLENOL ARTHRITIS PAIN) 650 mg CR tablet Take 650 mg by mouth every 8 hours. grape seed extract (GRAPE SEED ORAL) Take 1 tablet by mouth as directed. rOPINIRole (REQUIP) 0.5 mg tablet 1 tablet 1 to 3 hours before bedtime Orally Once a day for 30 days ondansetron orally disintegrating (ZOFRAN ODT) 8 mg disintegrating tablet Take 1 tablet by mouth every 8 hours as needed for nausea/vomiting. (Patient taking differently: Take 8 mg by mouth every 8 hours as needed for nausea/vomiting.) levothyroxine (SYNTHROID) 88 mcg tablet Take 1 tablet by mouth every afternoon. liothyronine (CYTOMEL) 5 mcg tablet oxybutynin (DITROPAN) 2.5 mg tablet Take 1 tablet by mouth every afternoon. multivitamins w-minerals/lut(CENTRAL SRIKANTH SENIOR-LUTEIN TAB) PSEUDOEPHEDRINE 30 MG TAB calcium/mag oxide/vitamin d3(CORAL CALCIUM PLUS 250 MG-125 MG-200 UNIT CAP) (Patient not taking: Reported on 11/09/2023) No current facility-administered medications for this visit. PAST MEDICAL HISTORY No date: Esophageal reflux Comment: on nexium No date: Unspecified sinusitis (chronic) FAMILY HISTORY Problem Relation Age of Onset Hypertension Father Coronary Artery Disease Father Hypertension Sister Coronary Artery Disease Sister [place] in 30s Anesthesia Problems No Family History PAST SURGICAL HISTORY 2007: EGD No date: OTHER ACCESSORY Comment: cervical cryotherapy , nml pap since then 1992: PUNCTURE ASPIRATION CYST BREAST Comment: x2, many years ago X-rays reviewed in office today display reverse total shoulder arthroplasty with cemented humeral implant. Small heterotopic ossifications are again seen. No abnormal lucencies, acute fracture or dislocation. Widening of the acromioclavicular joint with adjacent ossification again seen. Degenerative changes are present in the spine. EXAM: On examination patient displays well-healed incision without clinical signs of infection. No signs of shoulder instability with active or passive range of motion efforts. She displays active forward elevation 130 degrees external rotation of 40 degrees and internal rotation to the sacrum. Good strength with resisted internal/external rotation. IMPRESSION: S/p reverse total shoulder arthroplasty, left (primary encounter diagnosis) RECOMMENDATION: I discussed in detail the patient nature examination radiographic findings. We reviewed continued efforts with maintenance exercises and progression with strengthening conditioning. She will monitor symptoms return for interval follow-up with new x-rays in 6 months or as needed for new or worsening symptoms. This note was partially generated using [employer] voice recognition system and as such may contain grammatical or word errors Wolfgang Chou PA-C April 25, 2024 documented in this encounter [facility] 02-29-2024 Note HNO ID: [id number] Author: ROMINA DARNELL OTR/Cristopher Service: ? Author Type: Occupational Therapist Type: Progress Notes Filed: 02/29/2024 13:49 Note Text: 02/29/2024 REHABILITATION AND SPORTS THERAPY OCCUPATIONAL THERAPY DISCONTINUANCE OF CARE Plan of Care Period: Start of Care Date: 09/15/23 Last Visit Date: 12/26/2023 Therapy Program: The following is a summary of the interventions provided for this episode of care; Therapeutic exercise, Manual therapy, and Patient/Family/Caregiver Education Assessment: The following is the goal status: 1 session completed in 2022 Updated 10/16/2023; 11/21/23; 12/26/23 Goals for Episode of Care created on 09/15/23 through 01/13/24 Patient will report a good understanding of diagnoses and OT recommendations for progression of program.-met, 12/26/23 Patient will demonstrate independence with ongoing home recommendations/exercise program throughout therapy plan of care.-met, 12/26/23 Patient will improve function in Left upper extremity in order to be able to perform prior functional tasks.-met 12/26/2023 Patient will report a decrease in pain in Left shoulder and upper arm to 2/10 or less at rest and with basic self-care tasks.-met 11/21/23 Patient will increase AROM of Left elbow to WFL in order to be able to improve function for basic self-care tasks.-met 12/26/23 Patient will increase passive shoulder flexion and external rotation to WFL in preparation for active range of motion when permitted by / PA-C.-partially met 12/26/23 Patient/patient's spouse will demonstrate correct application of sling and verbalize understanding of proper wear/care. -met 11/09/23-sling discontinued Patient will report a good understanding of edema control, scar / wound management throughout therapy plan of care to promote non-adherent / non-tender soft tissue.-met 12/26/23 Patient will demonstrate decreased edema compared to initial testing measurements. -partially met 12/26/23 Patient will report a good understanding of the use of pain reducing modalities to help manage discomfort and promote healing.-met 10/16/23 Patient Goals: be able to use the arm again-met 12/26/23 Based on the most recent progress report, patient was progressing as expected toward functional goals based on home exercise program compliance, pain levels, documented subjective information on progress, and documented objective information regarding range of motion. Reason for Discontinuation of Care: Patient has not returned to therapy or scheduled additional follow-up appointments. Romina Darnell, OTR/L #[id number] [facility] 01-11-2024 Note HNO ID: [id number] Author: WOLFGANG CHOU PA-C Service: ? Author Type: Physician Product Marketing Manager Type: Progress Notes Filed: 01/11/2024 15:50 Note Text: Patient Name: QING FISCHER [facility] No: [id number] Date of Service: January 11, 2024 [facility] Patient returns for follow up approximately 4 months status post Left shoulder reverse total Shoulder Arthroplasty, extensive capsular release, biceps tenodesis, open reduction internal fixation of acromion fracture 09/11/[address] Combs AND left shoulder removal of prominent K wires under local anesthesia with Dr. Combs 10/30/2023. Overall patient states doing very well since our last visit. Patient reports 0/10 pain today. No refills on prescriptions requested in office today. PAIN EVALUATION No data found in the last 1 encounters. X-rays taken in office today display stable postsurgical changes in anatomic alignment without signs of hardware loosening. EXAM: On exam incision is well healed. AROM patient displays elevation 120 degrees, external rotation 30 degrees, and internal rotation to the sacrum. Operative shoulder is stable throughout PROM and displays good strength in all planes. IMPRESSION: S/p reverse total shoulder arthroplasty, left (primary encounter diagnosis) RECOMMENDATION: Patient is to see occupational therapy for continued Phase I-II protocols with supine exercises, heat AND water exercises, gradual strength AND conditioning. Patient is instructed on continued home maintenance exercises for the shoulder AND the need for antibiotics for dental appointments AND other elective medical procedures. Patient is to return for reevaluation with new x-rays in 3 months time. If they have any questions or concerns they are to call AND our office will gladly assist them sooner. This note was partially generated using [employer] recognition system and as such may contain grammatical or word errors Wolfgang Chou PA-C January 11, 2024 [facility] 01-11-2024 History of Present illness Narrative Patient Name: QING FISCHER [facility] No: [id number] Date of Service: January 11, 2024 [facility] Patient returns for follow up approximately 4 months status post Left shoulder reverse total Shoulder Arthroplasty, extensive capsular release, biceps tenodesis, open reduction internal fixation of acromion fracture 09/11/[address] Combs & left shoulder removal of prominent K wires under local anesthesia with Dr. Combs 10/30/2023. Overall patient states doing very well since our last visit. Patient reports 0/10 pain today. No refills on prescriptions requested in office today. PAIN EVALUATION No data found in the last 1 encounters. X-rays taken in office today display stable postsurgical changes in anatomic alignment without signs of hardware loosening. EXAM: On exam incision is well healed. AROM patient displays elevation 120 degrees, external rotation 30 degrees, and internal rotation to the sacrum. Operative shoulder is stable throughout PROM and displays good strength in all planes. IMPRESSION: S/p reverse total shoulder arthroplasty, left (primary encounter diagnosis) RECOMMENDATION: Patient is to see occupational therapy for continued Phase I-II protocols with supine exercises, heat & water exercises, gradual strength & conditioning. Patient is instructed on continued home maintenance exercises for the shoulder & the need for antibiotics for dental appointments & other elective medical procedures. Patient is to return for reevaluation with new x-rays in 3 months time. If they have any questions or concerns they are to call & our office will gladly assist them sooner. This note was partially generated using [employer] recognition system and as such may contain grammatical or word errors Wolfgang Chou PA-C January 11, 2024 documented in this encounter [facility] 01-11-2024 History of Present illness Narrative Radiology Service Progress Note PATIENT NAME: Qing Fischer DATE OF SERVICE: January 11, 2024 TIME: 2:28 PM PATIENT IDENTITY VERIFICATION COMPLETED USING TWO (2) IDENTIFIERS: Name and Date of confirmed by patient verbally. FALL SCREENING: Has the patient had 2 falls in the last year or 1 fall with injury or currently using an Ambulatory Assistive Device (Walker, Cane, Wheelchair, Crutches, etc.)? Yes, Patient High Risk for Falls What interventions were put in place to prevent falls during this visit? Yellow Falls Risk Wristband Applied PATIENT GENDER DATA: Female. status: : No status: NO. PATIENT RELEVANT IMPLANT DATA REVIEWED: Not Applicable PATIENT PRESENTS WITH AN IMPLANTABLE OR ATTACHED GRAD INTERN: No RADIOLOGY DEPARTMENT: General X-ray: Exam(s) Completed: Upper Extremity X-Ray(s): Shoulder, AP / TRUE AP left / PA Y-View PERIPHERAL IV DATA: Not applicable SIGNED BY: Aston Rodrigues January 11, 2024 2:28 PM documented in this encounter [facility] 01-11-2024 Note HNO ID: [id number] Author: TAMMY LEVY Tech Service: ? Author Type: Weigh Box Tender Type: Progress Notes Filed: 01/11/2024 14:29 Note Text: Radiology Service Progress Note PATIENT NAME: Qing Fischer DATE OF SERVICE: January 11, 2024 TIME: 2:28 PM PATIENT IDENTITY VERIFICATION COMPLETED USING TWO (2) IDENTIFIERS: Name and Date of confirmed by patient verbally. FALL SCREENING: Has the patient had 2 falls in the last year or 1 fall with injury or currently using an Ambulatory Assistive Device (Walker, Cane, Wheelchair, Crutches, etc.)? Yes, Patient High Risk for Falls What interventions were put in place to prevent falls during this visit? Yellow Falls Risk Wristband Applied PATIENT GENDER DATA: Female. status: : No status: NO. PATIENT RELEVANT IMPLANT DATA REVIEWED: Not Applicable PATIENT PRESENTS WITH AN IMPLANTABLE OR ATTACHED GRAD INTERN: No RADIOLOGY DEPARTMENT: General X-ray: Exam(s) Completed: Upper Extremity X-Ray(s): Shoulder, AP / TRUE AP left / PA Y-View PERIPHERAL IV DATA: Not applicable SIGNED BY: Aston Rodrigues January 11, 2024 2:28 PM [facility] 12-26-2023 Note HNO ID: [id number] Author: ROMINA DARNELL OTR/Cristopher Service: ? Author Type: Occupational Therapist Type: Progress Notes Filed: 12/26/2023 15:56 Note Text: Episode Visit Count: 11 in 2023; 1 session in 2022 Therapist That Will Accept/Oversee The Plan Of Care: RAHUL Zarate Start of Care Date: 09/15/23 Onset Date: 09/11/23 Plan of Care Certification Date: 12/14/23 Next Certification Due Date: 01/25/24 Patient Identified by Name and Date of : Yes REHABILITATION AND SPORTS THERAPY OCCUPATIONAL THERAPY PROGRESS REPORT PLAN OF CARE UPDATE: Assessment: Qing Fischer demonstrates improvements in cleaning, dressing, and grooming. She has progressed toward goals. Patient continues to present with impairments in range of motion and strength that interfere with (pt c/o difficulty at times due to R shoulder/neck pain, but has been able to use L UE to completed cleaning tasks, dressing, hygiene.) . Current prognosis is Good due to: current objective clinical presentation, positive past response to therapy, good support system/ coping skills . She is using her LUE for tasks, but has limitations due to pain in R shoulder/neck. She feels she is completing her exercises well and is comfortable using her LUE for tasks. She will follow-up with surgeon's office next week. She may continue on her own with her home program, but may return to OT for additional stretching and strengthening if needed. She will benefit from continued skilled therapy services to meet the updated goals for this plan of care as noted below. PLAN FOR NEXT VISIT: pt to follow-up with surgeon's office prior to scheduling further OT. 1 session completed in 2022 Updated 10/16/2023; 11/21/23; 12/26/23 Goals for Episode of Care created on 09/15/23 through 01/13/24 Patient will report a good understanding of diagnoses and OT recommendations for progression of program.-met, but ongoing as program is updated 12/26/23 Patient will demonstrate independence with ongoing home recommendations/exercise program throughout therapy plan of care.-met, but ongoing as program is updated 12/26/23 Patient will improve function in Left upper extremity in order to be able to perform prior functional tasks.-met 12/26/2023 Patient will report a decrease in pain in Left shoulder and upper arm to 2/10 or less at rest and with basic self-care tasks.-met 11/21/23 Patient will increase AROM of Left elbow to WFL in order to be able to improve function for basic self-care tasks.-met 12/26/23 Patient will increase passive shoulder flexion and external rotation to WFL in preparation for active range of motion when permitted by / BIJAN.-progressing 12/26/23 Patient/patient's spouse will demonstrate correct application of sling and verbalize understanding of proper wear/care. -met 11/09/23-sling discontinued Patient will report a good understanding of edema control, scar / wound management throughout therapy plan of care to promote non-adherent / non-tender soft tissue. Patient will demonstrate decreased edema compared to initial testing measurements. -progressing 12/26/23 Patient will report a good understanding of the use of pain reducing modalities to help manage discomfort and promote healing.-met 10/16/23 Patient Goals: be able to use the arm again-met 12/26/23 Planned Interventions, Frequency, and Duration: 1x every other week, 4 weeks Total Number of Visits Planned: 2 Planned Treatment Interventions: Therapeutic exercise (49271), Manual therapy (86425), Self-long term management (20228), Patient/Family/Caregiver Education PLAN FOR NEXT VISIT: pt to follow-up with surgeon's office prior to scheduling further OT. SUBJECTIVE: 15 weeks s/p Revision surgery - reverse total shoulder replacement arthroplasty, capsular release, bone graft of the eroded glenoid, ORIF with bone graft of acromion fracture as well as repair of the posterior and anterior rotator cuff Pt reports she is using her LUE for kitchen tasks, states she has to bend forward to wash her hair due to difficulty with reaching with RUE. Functional Limitations: (pt c/o difficulty at times due to R shoulder/neck pain, but has been able to use L UE to completed cleaning tasks, dressing, hygiene.) Pain: Pain Pain Level: 0 Pain Location: Upper Arm - Left, Shoulder - Left, Neck - Right, Shoulder - Right Post Treatment Pain Post Treatment Pain Level: 0 Post Treatment Pain Location: Shoulder - Left, Upper Arm - Left PROMIS Scales T-scores: mean of general population = 50. 5 points is clinically meaningfully difference Percentiles provide an indication of how the patient's score ranks in relation to the general population. Higher percentile rankings indicate better function/quality of life. 50th percentile is the average of the general population and indicates half of respondents had a worse score. OBJECTIVE MEASURES WITH LEVEL OF FUNCTION: UE AROM L Shoulder Exte (more content not included)... [facility] 12-26-2023 History of Present illness Narrative Episode Visit Count: 11 in 2023; 1 session in 2022 Therapist That Will Accept/Oversee The Plan Of Care: RAHUL Zarate Start of Care Date: 09/15/23 Onset Date: 09/11/23 Plan of Care Certification Date: 12/14/23 Next Certification Due Date: 01/25/24 Patient Identified by Name and Date of : Yes REHABILITATION AND SPORTS THERAPY OCCUPATIONAL THERAPY PROGRESS REPORT PLAN OF CARE UPDATE: Assessment: Qing Fischer demonstrates improvements in cleaning, dressing, and grooming. She has progressed toward goals. Patient continues to present with impairments in range of motion and strength that interfere with (pt c/o difficulty at times due to R shoulder/neck pain, but has been able to use L UE to completed cleaning tasks, dressing, hygiene.) . Current prognosis is Good due to: current objective clinical presentation, positive past response to therapy, good support system/ coping skills . She is using her LUE for tasks, but has limitations due to pain in R shoulder/neck. She feels she is completing her exercises well and is comfortable using her LUE for tasks. She will follow-up with surgeon's office next week. She may continue on her own with her home program, but may return to OT for additional stretching and strengthening if needed. She will benefit from continued skilled therapy services to meet the updated goals for this plan of care as noted below. PLAN FOR NEXT VISIT: pt to follow-up with surgeon's office prior to scheduling further OT. 1 session completed in 2022 Updated 10/16/2023; 11/21/23; 12/26/23 Goals for Episode of Care created on 09/15/23 through 01/13/24 Patient will report a good understanding of diagnoses and OT recommendations for progression of program.-met, but ongoing as program is updated 12/26/23 Patient will demonstrate independence with ongoing home recommendations/exercise program throughout therapy plan of care.-met, but ongoing as program is updated 12/26/23 Patient will improve function in Left upper extremity in order to be able to perform prior functional tasks.-met 12/26/2023 Patient will report a decrease in pain in Left shoulder and upper arm to 2/10 or less at rest and with basic self-care tasks.-met 11/21/23 Patient will increase AROM of Left elbow to WFL in order to be able to improve function for basic self-care tasks.-met 12/26/23 Patient will increase passive shoulder flexion and external rotation to WFL in preparation for active range of motion when permitted by MD / BIJAN.-progressing 12/26/23 Patient/patient's spouse will demonstrate correct application of sling and verbalize understanding of proper wear/care. -met 11/09/23-sling discontinued Patient will report a good understanding of edema control, scar / wound management throughout therapy plan of care to promote non-adherent / non-tender soft tissue. Patient will demonstrate decreased edema compared to initial testing measurements. -progressing 12/26/23 Patient will report a good understanding of the use of pain reducing modalities to help manage discomfort and promote healing.-met 10/16/23 Patient Goals: be able to use the arm again-met 12/26/23 Planned Interventions, Frequency, and Duration: 1x every other week, 4 weeks Total Number of Visits Planned: 2 Planned Treatment Interventions: Therapeutic exercise (81909), Manual therapy (67200), Self-long term management ([id number]), Patient/Family/Caregiver Education PLAN FOR NEXT VISIT: pt to follow-up with surgeon's office prior to scheduling further OT. SUBJECTIVE: 15 weeks s/p Revision surgery - reverse total shoulder replacement arthroplasty, capsular release, bone graft of the eroded glenoid, ORIF with bone graft of acromion fracture as well as repair of the posterior and anterior rotator cuff Pt reports she is using her LUE for kitchen tasks, states she has to bend forward to wash her hair due to difficulty with reaching with RUE. Functional Limitations: (pt c/o difficulty at times due to R shoulder/neck pain, but has been able to use L UE to completed cleaning tasks, dressing, hygiene.) Pain: Pain Pain Level: 0 Pain Location: Upper Arm - Left, Shoulder - Left, Neck - Right, Shoulder - Right Post Treatment Pain Post Treatment Pain Level: 0 Post Treatment Pain Location: Shoulder - Left, Upper Arm - Left PROMIS Scales T-scores: mean of general population = 50. 5 points is clinically meaningfully difference Percentiles provide an indication of how the patient's score ranks in relation to the general population. Higher percentile rankings indicate better function/quality of life. 50th percentile is the average of the general population and indicates half of respondents had a worse score. OBJECTIVE MEASURES WITH LEVEL OF FUNCTION: UE AROM L Shoulder Extension: 50 Degrees L Shoulder Flex: 115 Degrees L Shoulder ABduction: 103 Degrees L Elbow Extension: -3 TREATMENT: Therapeutic Exercise: 1: discussed with pt her status since prior session while applying moist heating pad on L shoulder while in supine 2: completed AAROM for shoulder flexion and ext/int rotation, abduction, horizontal abd/adduction while supine 3: pt completed use of 1# weight for shoulder flexion, forward press and external rotation while supine x 10 reps each 4: completed use of 1# weight for bicep curls Skilled Intervention: Patient was educated in proper exercise technique and purpose for exercises. Skilled judgment was used in selection of appropriate interventions. Correct performance of therapeutic exercises was facilitated with verbal, visual, and tactile cuing. Manual Therapy: Trigger Point Release: along upper trap on R side to decrease pain Manual Traction: gentle traction completed at cervical spine while supine Skilled Intervention: Manual skills to improve joint mobility, ROM, and decrease pain. Utilized anatomy knowledge of the therapist, and assessment of patient's response to intervention. Billing Therapeutic Exercise Treatment Minutes: 30 Manual Therapy Treatment Minutes: 14 Skilled Treatment Time Minutes (timed and untimed codes): 44 Total Session Time (minutes): 46 Session Start Time : 1454 Session Stop Time : 1540 RAHUL Olsen #[id number] documented in this encounter [facility] 12-19-2023 Note HNO ID: [id number] Author: ROMINA DARNELL OTR/Cristopher Service: ? Author Type: Occupational Therapist Type: Progress Notes Filed: 12/19/2023 18:10 Note Text: Episode Visit Count: 7 Therapist That Will Accept/Oversee The Plan Of Care: ELSY Zarate/Cristopher Start of Care Date: 09/15/23 Onset Date: 09/11/23 Plan of Care Certification Date: 09/15/23 Next Certification Due Date: 12/14/23 Patient Identified by Name and Date of : Yes REHABILITATION AND SPORTS THERAPY OCCUPATIONAL THERAPY TREATMENT NOTE ASSESSMENT: Qing Fischer tolerated the session with no issues. She demonstrated difficulty with home LUE stretching at times due to pain in R shoulder/neck. She does benefit from heat and manual techniques to reduce. She shows progress in motion in L shoulder and is receptive to use of theraband to further progress. The patient will continue to benefit from ongoing skilled occupational therapy to progress toward set goals. PLAN FOR NEXT VISIT: reassess status, continue with shoulder A/AAROM, review and update home program as needed; manual techniques SUBJECTIVE: 14 weeks s/p Revision surgery - reverse total shoulder replacement arthroplasty, capsular release, bone graft of the eroded glenoid, ORIF with bone graft of acromion fracture as well as repair of the posterior and anterior rotator cuff Pt expresses she feels the L shoulder is good, but is concerned with R sided neck pain. Pain: Pain Pain Level: 0 Pain Location: Upper Arm - Left, Shoulder - Left, Neck - Right, Shoulder - Right Post Treatment Pain Post Treatment Pain Level: 0 Post Treatment Pain Location: Shoulder - Left, Upper Arm - Left OBJECTIVE MEASURES WITH LEVEL OF FUNCTION: UE AROM L Shoulder Flex: 110 Degrees (from 106) L Shoulder ABduction: 103 Degrees (from 101) UE PROM L Shoulder Flex: 125 Degrees (from 114) L Shoulder ABduction: 115 Degrees (from 75) TREATMENT: Therapeutic Exercise: 1: discussed with pt her status since prior session while applying moist heating pad on L shoulder while in supine 2: completed AAROM for shoulder flexion and ext/int rotation, abduction, horizontal abd/adduction while supine 3: *pt educated in use of and completed use of light theraband for shoulder flexion, abduction, upward press, elbow flexion-added to home program Skilled Intervention: Patient was educated in proper exercise technique and purpose for exercises. Reviewed and educated patient on additions/changes for home exercise program as above (*). Skilled judgment was used in selection of appropriate interventions. Provided written instruction for home exercise program to facilitate proper performance and compliance. Correct performance of therapeutic exercises was facilitated with verbal, visual, and tactile cuing. Manual Therapy: Trigger Point Release: along upper trap on R side to decrease pain Manual Traction: gentle traction completed at cervical spine while supine Skilled Intervention: Manual skills to improve joint mobility, ROM, and decrease pain. Utilized anatomy knowledge of the therapist, and assessment of patient's response to intervention. Billing Therapeutic Exercise Treatment Minutes: 25 Manual Therapy Treatment Minutes: 17 Skilled Treatment Time Minutes (timed and untimed codes): 42 Total Session Time (minutes): 45 Session Start Time : 1452 Session Stop Time : 1537 ELSY Olsen/Cristopher #[id number] [facility] 12-19-2023 History of Present illness Narrative Episode Visit Count: 7 Therapist That Will Accept/Oversee The Plan Of Care: ELSY Zarate/Cristopher Start of Care Date: 09/15/23 Onset Date: 09/11/23 Plan of Care Certification Date: 09/15/23 Next Certification Due Date: 12/14/23 Patient Identified by Name and Date of : Yes REHABILITATION AND SPORTS THERAPY OCCUPATIONAL THERAPY TREATMENT NOTE ASSESSMENT: Qing Fischer tolerated the session with no issues. She demonstrated difficulty with home LUE stretching at times due to pain in R shoulder/neck. She does benefit from heat and manual techniques to reduce. She shows progress in motion in L shoulder and is receptive to use of theraband to further progress. The patient will continue to benefit from ongoing skilled occupational therapy to progress toward set goals. PLAN FOR NEXT VISIT: reassess status, continue with shoulder A/AAROM, review and update home program as needed; manual techniques SUBJECTIVE: 14 weeks s/p Revision surgery - reverse total shoulder replacement arthroplasty, capsular release, bone graft of the eroded glenoid, ORIF with bone graft of acromion fracture as well as repair of the posterior and anterior rotator cuff Pt expresses she feels the L shoulder is good, but is concerned with R sided neck pain. Pain: Pain Pain Level: 0 Pain Location: Upper Arm - Left, Shoulder - Left, Neck - Right, Shoulder - Right Post Treatment Pain Post Treatment Pain Level: 0 Post Treatment Pain Location: Shoulder - Left, Upper Arm - Left OBJECTIVE MEASURES WITH LEVEL OF FUNCTION: UE AROM L Shoulder Flex: 110 Degrees (from 106) L Shoulder ABduction: 103 Degrees (from 101) UE PROM L Shoulder Flex: 125 Degrees (from 114) L Shoulder ABduction: 115 Degrees (from 75) TREATMENT: Therapeutic Exercise: 1: discussed with pt her status since prior session while applying moist heating pad on L shoulder while in supine 2: completed AAROM for shoulder flexion and ext/int rotation, abduction, horizontal abd/adduction while supine 3: *pt educated in use of and completed use of light theraband for shoulder flexion, abduction, upward press, elbow flexion-added to home program Skilled Intervention: Patient was educated in proper exercise technique and purpose for exercises. Reviewed and educated patient on additions/changes for home exercise program as above (*). Skilled judgment was used in selection of appropriate interventions. Provided written instruction for home exercise program to facilitate proper performance and compliance. Correct performance of therapeutic exercises was facilitated with verbal, visual, and tactile cuing. Manual Therapy: Trigger Point Release: along upper trap on R side to decrease pain Manual Traction: gentle traction completed at cervical spine while supine Skilled Intervention: Manual skills to improve joint mobility, ROM, and decrease pain. Utilized anatomy knowledge of the therapist, and assessment of patient's response to intervention. Billing Therapeutic Exercise Treatment Minutes: 25 Manual Therapy Treatment Minutes: 17 Skilled Treatment Time Minutes (timed and untimed codes): 42 Total Session Time (minutes): 45 Session Start Time : 1452 Session Stop Time : 1537 RAHUL Olsen #[id number] documented in this encounter [facility] 12-12-2023 Note HNO ID: [id number] Author: ROMINA DARNELL OTR/L Service: ? Author Type: Occupational Therapist Type: Progress Notes Filed: 12/12/2023 18:19 Note Text: Episode Visit Count: 9 (1 session in 2022) Therapist That Will Accept/Oversee The Plan Of Care: RAHUL Zarate Start of Care Date: 09/15/23 Onset Date: 09/11/23 Plan of Care Certification Date: 09/15/23 Next Certification Due Date: 12/14/23 Patient Identified by Name and Date of : Yes REHABILITATION AND SPORTS THERAPY OCCUPATIONAL THERAPY TREATMENT NOTE ASSESSMENT: Qing Fischer tolerated the session with decreased symptoms. She demonstrated improvements in tolerance to use of 1# weight for resistance with supine motion. She was encouraged to continue with cervical stretches to help reduce pain. The patient will continue to benefit from ongoing skilled occupational therapy to progress toward set goals. PLAN FOR NEXT VISIT: reassess status, continue with shoulder A/AAROM, review and update home program as needed; manual techniques SUBJECTIVE: 13 weeks s/p Revision surgery - reverse total shoulder replacement arthroplasty, capsular release, bone graft of the eroded glenoid, ORIF with bone graft of acromion fracture as well as repair of the posterior and anterior rotator cuff Pt expresses she may need to see a neurologist regarding her neck due to ongoing pain, but did reduce by end of session this date. Pain: Pain Pain Level: 0 (not rated for R shoulder, but is present) Pain Location: Upper Arm - Left, Shoulder - Left, Neck - Right, Shoulder - Right Description: Tightness, Sore, Radiating Frequency: Intermittent Post Treatment Pain Post Treatment Pain Level: 0 Post Treatment Pain Location: Neck - Right, Shoulder - Right, Shoulder - Left, Upper Arm - Left OBJECTIVE MEASURES WITH LEVEL OF FUNCTION: No measurements taken this date formally TREATMENT: Therapeutic Exercise: 1: discussed with pt her status since prior session while applying moist heating pad on L shoulder while in supine 2: completed AAROM for shoulder flexion and ext/int rotation, abduction, horizontal abd/adduction while supine 3: completed use of 1# weight for shoulder strengthening while supine-flexion, ext rotation, shoulder press, elbow flex x 10 reps each Skilled Intervention: Patient was educated in proper exercise technique and purpose for exercises. Skilled judgment was used in selection of appropriate interventions. Correct performance of therapeutic exercises was facilitated with verbal, visual, and tactile cuing. Manual Therapy: Trigger Point Release: along upper trap on R side to decrease pain Manual Traction: gentle traction completed at cervical spine while supine Skilled Intervention: Manual skills to improve joint mobility, ROM, and decrease pain. Utilized anatomy knowledge of the therapist, and assessment of patient's response to intervention. Billing Therapeutic Exercise Treatment Minutes: 35 Manual Therapy Treatment Minutes: 15 Skilled Treatment Time Minutes (timed and untimed codes): 50 Total Session Time (minutes): 52 Session Start Time : 1449 Session Stop Time : 1541 Romina DarnellOLIVIAR/L #[id number] [facility] 12-12-2023 History of Present illness Narrative Episode Visit Count: 9 (1 session in 2022) Therapist That Will Accept/Oversee The Plan Of Care: ELSY Zarate/Cristopher Start of Care Date: 09/15/23 Onset Date: 09/11/23 Plan of Care Certification Date: 09/15/23 Next Certification Due Date: 12/14/23 Patient Identified by Name and Date of : Yes REHABILITATION AND SPORTS THERAPY OCCUPATIONAL THERAPY TREATMENT NOTE ASSESSMENT: Qing Fischer tolerated the session with decreased symptoms. She demonstrated improvements in tolerance to use of 1# weight for resistance with supine motion. She was encouraged to continue with cervical stretches to help reduce pain. The patient will continue to benefit from ongoing skilled occupational therapy to progress toward set goals. PLAN FOR NEXT VISIT: reassess status, continue with shoulder A/AAROM, review and update home program as needed; manual techniques SUBJECTIVE: 13 weeks s/p Revision surgery - reverse total shoulder replacement arthroplasty, capsular release, bone graft of the eroded glenoid, ORIF with bone graft of acromion fracture as well as repair of the posterior and anterior rotator cuff Pt expresses she may need to see a neurologist regarding her neck due to ongoing pain, but did reduce by end of session this date. Pain: Pain Pain Level: 0 (not rated for R shoulder, but is present) Pain Location: Upper Arm - Left, Shoulder - Left, Neck - Right, Shoulder - Right Description: Tightness, Sore, Radiating Frequency: Intermittent Post Treatment Pain Post Treatment Pain Level: 0 Post Treatment Pain Location: Neck - Right, Shoulder - Right, Shoulder - Left, Upper Arm - Left OBJECTIVE MEASURES WITH LEVEL OF FUNCTION: No measurements taken this date formally TREATMENT: Therapeutic Exercise: 1: discussed with pt her status since prior session while applying moist heating pad on L shoulder while in supine 2: completed AAROM for shoulder flexion and ext/int rotation, abduction, horizontal abd/adduction while supine 3: completed use of 1# weight for shoulder strengthening while supine-flexion, ext rotation, shoulder press, elbow flex x 10 reps each Skilled Intervention: Patient was educated in proper exercise technique and purpose for exercises. Skilled judgment was used in selection of appropriate interventions. Correct performance of therapeutic exercises was facilitated with verbal, visual, and tactile cuing. Manual Therapy: Trigger Point Release: along upper trap on R side to decrease pain Manual Traction: gentle traction completed at cervical spine while supine Skilled Intervention: Manual skills to improve joint mobility, ROM, and decrease pain. Utilized anatomy knowledge of the therapist, and assessment of patient's response to intervention. Billing Therapeutic Exercise Treatment Minutes: 35 Manual Therapy Treatment Minutes: 15 Skilled Treatment Time Minutes (timed and untimed codes): 50 Total Session Time (minutes): 52 Session Start Time : 1449 Session Stop Time : 1541 RAHUL Olsen #[id number] documented in this encounter [facility] 12-05-2023 Note HNO ID: [id number] Author: ROMINA DARNELL OTR/L Service: ? Author Type: Occupational Therapist Type: Progress Notes Filed: 12/05/2023 16:51 Note Text: Episode Visit Count: 6 Therapist That Will Accept/Oversee The Plan Of Care: RAHUL Zarate Start of Care Date: 09/15/23 Onset Date: 09/11/23 Plan of Care Certification Date: 09/15/23 Next Certification Due Date: 12/14/23 REHABILITATION AND SPORTS THERAPY OCCUPATIONAL THERAPY TREATMENT NOTE ASSESSMENT: Qing Fischer tolerated the session with no issues. She demonstrated improvements in motion in L shoulder visually. She was encouraged to be aware of her posture to prevent compensation with mobility exercises. Pt working on exercises at home which she does not have to use the R UE to assist LUE. The patient will continue to benefit from ongoing skilled occupational therapy to progress toward set goals. PLAN FOR NEXT VISIT: continue with shoulder A/AAROM, review and update home program as needed; assess response to added exercises for cervical spine SUBJECTIVE: 12 weeks s/p Revision surgery - reverse total shoulder replacement arthroplasty, capsular release, bone graft of the eroded glenoid, ORIF with bone graft of acromion fracture as well as repair of the posterior and anterior rotator cuff Pt expresses she has pain radiating down her upper R arm and into her shoulder blade. States her doctor felt it was nerve related and approved exercises. Pt voices frustration as she feels the pain in her R shoulder limits her from completing all of the exercises needed to improve L shoulder. Pain: Pain Pain Level: 0 Pain Location: Upper Arm - Left, Shoulder - Left Post Treatment Pain Post Treatment Pain Level: 0 Post Treatment Pain Location: Upper Arm - Left, Shoulder - Left OBJECTIVE MEASURES WITH LEVEL OF FUNCTION: No measurements taken this date formally TREATMENT: Therapeutic Exercise: 1: discussed with pt her status since prior session while applying moist heating pad on L shoulder while in supine 2: completed AAROM for shoulder flexion and ext/int rotation, abduction, horizontal abd/adduction while supine 3: *added shoulder abduction to wall climbing at home 4: *Pt educated in and completed radial nerve glides-added to home program 5: *pt educated in and completed cervical AROM-lateral flexion, forward flexion, rotation to both sides, chin tucks due to pain in neck/upper back radiating down R shoulder-added to home program Skilled Intervention: Patient was educated in proper exercise technique and purpose for exercises. Reviewed and educated patient on additions/changes for home exercise program as above (*). Skilled judgment was used in selection of appropriate interventions. Provided written instruction for home exercise program to facilitate proper performance and compliance. Correct performance of therapeutic exercises was facilitated with verbal, visual, and tactile cuing. Billing Therapeutic Exercise Treatment Minutes: 38 Skilled Treatment Time Minutes (timed and untimed codes): 38 Total Session Time (minutes): 40 Session Start Time : 1451 Session Stop Time : 1531 ELSY Olsen/Cristopher #[id number] [facility] 12-05-2023 History of Present illness Narrative Episode Visit Count: 6 Therapist That Will Accept/Oversee The Plan Of Care: RAHUL Zarate Start of Care Date: 09/15/23 Onset Date: 09/11/23 Plan of Care Certification Date: 09/15/23 Next Certification Due Date: 12/14/23 REHABILITATION AND SPORTS THERAPY OCCUPATIONAL THERAPY TREATMENT NOTE ASSESSMENT: Qing Fischer tolerated the session with no issues. She demonstrated improvements in motion in L shoulder visually. She was encouraged to be aware of her posture to prevent compensation with mobility exercises. Pt working on exercises at home which she does not have to use the R UE to assist LUE. The patient will continue to benefit from ongoing skilled occupational therapy to progress toward set goals. PLAN FOR NEXT VISIT: continue with shoulder A/AAROM, review and update home program as needed; assess response to added exercises for cervical spine SUBJECTIVE: 12 weeks s/p Revision surgery - reverse total shoulder replacement arthroplasty, capsular release, bone graft of the eroded glenoid, ORIF with bone graft of acromion fracture as well as repair of the posterior and anterior rotator cuff Pt expresses she has pain radiating down her upper R arm and into her shoulder blade. States her doctor felt it was nerve related and approved exercises. Pt voices frustration as she feels the pain in her R shoulder limits her from completing all of the exercises needed to improve L shoulder. Pain: Pain Pain Level: 0 Pain Location: Upper Arm - Left, Shoulder - Left Post Treatment Pain Post Treatment Pain Level: 0 Post Treatment Pain Location: Upper Arm - Left, Shoulder - Left OBJECTIVE MEASURES WITH LEVEL OF FUNCTION: No measurements taken this date formally TREATMENT: Therapeutic Exercise: 1: discussed with pt her status since prior session while applying moist heating pad on L shoulder while in supine 2: completed AAROM for shoulder flexion and ext/int rotation, abduction, horizontal abd/adduction while supine 3: *added shoulder abduction to wall climbing at home 4: *Pt educated in and completed radial nerve glides-added to home program 5: *pt educated in and completed cervical AROM-lateral flexion, forward flexion, rotation to both sides, chin tucks due to pain in neck/upper back radiating down R shoulder-added to home program Skilled Intervention: Patient was educated in proper exercise technique and purpose for exercises. Reviewed and educated patient on additions/changes for home exercise program as above (*). Skilled judgment was used in selection of appropriate interventions. Provided written instruction for home exercise program to facilitate proper performance and compliance. Correct performance of therapeutic exercises was facilitated with verbal, visual, and tactile cuing. Billing Therapeutic Exercise Treatment Minutes: 38 Skilled Treatment Time Minutes (timed and untimed codes): 38 Total Session Time (minutes): 40 Session Start Time : 1451 Session Stop Time : 1531 RAHUL Olsen #[id number] documented in this encounter [facility] 11-28-2023 Note HNO ID: [id number] Author: ROMINA DARNELL OTR/Cristopher Service: ? Author Type: Occupational Therapist Type: Progress Notes Filed: 11/28/2023 18:35 Note Text: Episode Visit Count: 5 Therapist That Will Accept/Oversee The Plan Of Care: RAHUL Zarate Start of Care Date: 09/15/23 Onset Date: 09/11/23 Plan of Care Certification Date: 09/15/23 Next Certification Due Date: 12/14/23 Patient Identified by Name and Date of : Yes REHABILITATION AND SPORTS THERAPY OCCUPATIONAL THERAPY TREATMENT NOTE ASSESSMENT: Qing Fischer tolerated the session with no issues. She demonstrated improvements in active shoulder motion, but demonstrates full passive motion in L shoulder. She c/o pain in R shoulder more so than in L and plans on talking with her provider about this/possible treatment. She was encouraged to watch her form when completing exercises to prevent compensation and to strengthen/stretch proper muscles. The patient will continue to benefit from ongoing skilled occupational therapy to progress toward set goals. PLAN FOR NEXT VISIT: continue with shoulder A/AAROM, review and update home program as needed SUBJECTIVE: 11 weeks s/p Revision surgery - reverse total shoulder replacement arthroplasty, capsular release, bone graft of the eroded glenoid, ORIF with bone graft of acromion fracture as well as repair of the posterior and anterior rotator cuff Pt expresses her L shoulder feels good, but she is having more pain in the R shoulder/neck. Pain: Pain Pain Level: 0 Pain Location: Upper Arm - Left, Shoulder - Left Post Treatment Pain Post Treatment Pain Level: 0 Post Treatment Pain Location: Upper Arm - Left, Shoulder - Left OBJECTIVE MEASURES WITH LEVEL OF FUNCTION: UE AROM L Shoulder Flex: 106 Degrees (from 102) L Shoulder ABduction: 101 Degrees (from 90) L Shoulder External Rotation: 18 Degrees (from 0) TREATMENT: Therapeutic Exercise: 1: discussed with pt her status since prior session while applying moist heating pad on L shoulder while in supine 2: completed AAROM for shoulder flexion and ext/int rotation, abduction, horizontal abd/adduction while supine 3: completed UBE at level 1 for 5 min pushing forwards and pulling backwards 4: completed use of pulleys for flex and abduction-therapist assisted due to c/o pain in R shoulder 5: completed use of yellow flex bar with forearm in pronation and supination x 10 reps each Skilled Intervention: Patient was educated in proper exercise technique and purpose for exercises. Skilled judgment was used in selection of appropriate interventions. Correct performance of therapeutic exercises was facilitated with verbal, visual, and tactile cuing. Billing Therapeutic Exercise Treatment Minutes: 50 Skilled Treatment Time Minutes (timed and untimed codes): 50 Total Session Time (minutes): 53 Session Start Time : 1355 Session Stop Time : 1448 ELSY Olsen/Cristopher #[id number] [facility] 11-21-2023 Note HNO ID: [id number] Author: ROMINA DARNELL OTR/Cristopher Service: ? Author Type: Occupational Therapist Type: Progress Notes Filed: 11/21/2023 18:33 Note Text: Episode Visit Count: 6 (1 session in 2022) Therapist That Will Accept/Oversee The Plan Of Care: RAHUL Zarate Start of Care Date: 09/15/23 Onset Date: 09/11/23 Plan of Care Certification Date: 09/15/23 Next Certification Due Date: 12/14/23 Patient Identified by Name and Date of : Yes REHABILITATION AND SPORTS THERAPY OCCUPATIONAL THERAPY PROGRESS REPORT PLAN OF CARE UPDATE: Assessment: Qing Fischer demonstrates improvements in self care tasks, but continues to require assistance at times due to limited ability to reach. She has progressed toward goals. Patient continues to present with impairments in range of motion that interfere with lifting, reaching behind back, reaching overhead . Current prognosis is Good due to: current objective clinical presentation, good support system/ coping skills . She has shown progress in motion and understands need to continue with home exercises and skilled OT to progress motion in order to resume functional use. She will benefit from continued skilled therapy services to meet the updated goals for this plan of care as noted below. PLAN FOR NEXT VISIT: continue with shoulder A/AAROM, review and update home program as needed 1 session completed in 2022 Updated 10/16/2023; 11/21/23 Goals for Episode of Care created on 09/15/23 through 01/13/24 Patient will report a good understanding of diagnoses and OT recommendations for progression of program.-met, but ongoing as program is updated 11/21/23 Patient will demonstrate independence with ongoing home recommendations/exercise program throughout therapy plan of care.-met, but ongoing as program is updated 11/21/23 Patient will improve function in Left upper extremity in order to be able to perform prior functional tasks.-ongoing 11/21/23 Patient will report a decrease in pain in Left shoulder and upper arm to 2/10 or less at rest and with basic self-care tasks.-met 11/21/23 Patient will increase AROM of Left elbow to WFL in order to be able to improve function for basic self-care tasks.-progressing 11/21/23 Patient will increase passive shoulder flexion and external rotation to WFL in preparation for active range of motion when permitted by MD / BIJAN.-progressing 11/21/23 Patient/patient's spouse will demonstrate correct application of sling and verbalize understanding of proper wear/care. -met 11/09/23-sling discontinued Patient will report a good understanding of edema control, scar / wound management throughout therapy plan of care to promote non-adherent / non-tender soft tissue. Patient will demonstrate decreased edema compared to initial testing measurements. -progressing 11/21/23 Patient will report a good understanding of the use of pain reducing modalities to help manage discomfort and promote healing.-met 10/16/23 Patient Goals: be able to use the arm again-progressing 11/21/23 Patient Goals: be able to use the arm again Planned Interventions, Frequency, and Duration: 1x/week, 4 weeks Total Number of Visits Planned: 4 Planned Treatment Interventions: Therapeutic exercise (11677), Manual therapy (44142), Self-long term management (59743), Patient/Family/Caregiver Education PLAN FOR NEXT VISIT: continue with shoulder A/AAROM, review and update home program as needed SUBJECTIVE: 10 weeks s/p Revision surgery - reverse total shoulder replacement arthroplasty, capsular release, bone graft of the eroded glenoid, ORIF with bone graft of acromion fracture as well as repair of the posterior and anterior rotator cuff Pt reports she was able to sit at her sewing machine and use the machine-was able to hold her arm up to use/guide material through. Functional Limitations: lifting, reaching behind back, reaching overhead Pain: Pain Pain Level: 0 Pain Location: Upper Arm - Left, Shoulder - Left Post Treatment Pain Post Treatment Pain Level: (not rated, but continues to have soremess) Post Treatment Pain Location: Upper Arm - Left Post Treatment Pain Description: Sore PROMIS Scales T-scores: mean of general population = 50. 5 points is clinically meaningfully difference Percentiles provide an indication of how the patient's score ranks in relation to the general population. Higher percentile rankings indicate better function/quality of life. 50th percentile is the average of the general population and indicates half of respondents had a worse score. OBJECTIVE MEASURES WITH LEVEL OF FUNCTION: UE AROM L Shoulder Flex: 102 Degrees L Shoulder ABduction: 90 Degrees L Shoulder External Rotation: 0 Degrees L Elbow Extension: -18 UE PROM L Shoulder Flex: 114 Degrees L Shoulder External Rotation: 40 Degrees TREATMENT: Therapeutic Exercise: 1: discussed with pt her status since prior session while (more content not included)... [facility] 11-21-2023 History of Present illness Narrative Episode Visit Count: 6 (1 session in 2022) Therapist That Will Accept/Oversee The Plan Of Care: RAHUL Zarate Start of Care Date: 09/15/23 Onset Date: 09/11/23 Plan of Care Certification Date: 09/15/23 Next Certification Due Date: 12/14/23 Patient Identified by Name and Date of : Yes REHABILITATION AND SPORTS THERAPY OCCUPATIONAL THERAPY PROGRESS REPORT PLAN OF CARE UPDATE: Assessment: Qing Fischer demonstrates improvements in self care tasks, but continues to require assistance at times due to limited ability to reach. She has progressed toward goals. Patient continues to present with impairments in range of motion that interfere with lifting, reaching behind back, reaching overhead . Current prognosis is Good due to: current objective clinical presentation, good support system/ coping skills . She has shown progress in motion and understands need to continue with home exercises and skilled OT to progress motion in order to resume functional use. She will benefit from continued skilled therapy services to meet the updated goals for this plan of care as noted below. PLAN FOR NEXT VISIT: continue with shoulder A/AAROM, review and update home program as needed 1 session completed in 2022 Updated 10/16/2023; 11/21/23 Goals for Episode of Care created on 09/15/23 through 01/13/24 Patient will report a good understanding of diagnoses and OT recommendations for progression of program.-met, but ongoing as program is updated 11/21/23 Patient will demonstrate independence with ongoing home recommendations/exercise program throughout therapy plan of care.-met, but ongoing as program is updated 11/21/23 Patient will improve function in Left upper extremity in order to be able to perform prior functional tasks.-ongoing 11/21/23 Patient will report a decrease in pain in Left shoulder and upper arm to 2/10 or less at rest and with basic self-care tasks.-met 11/21/23 Patient will increase AROM of Left elbow to WFL in order to be able to improve function for basic self-care tasks.-progressing 11/21/23 Patient will increase passive shoulder flexion and external rotation to WFL in preparation for active range of motion when permitted by / BIJAN.-progressing 11/21/23 Patient/patient's spouse will demonstrate correct application of sling and verbalize understanding of proper wear/care. -met 11/09/23-sling discontinued Patient will report a good understanding of edema control, scar / wound management throughout therapy plan of care to promote non-adherent / non-tender soft tissue. Patient will demonstrate decreased edema compared to initial testing measurements. -progressing 11/21/23 Patient will report a good understanding of the use of pain reducing modalities to help manage discomfort and promote healing.-met 10/16/23 Patient Goals: be able to use the arm again-progressing 11/21/23 Patient Goals: be able to use the arm again Planned Interventions, Frequency, and Duration: 1x/week, 4 weeks Total Number of Visits Planned: 4 Planned Treatment Interventions: Therapeutic exercise (67598), Manual therapy (10309), Self-long term management (75833), Patient/Family/Caregiver Education PLAN FOR NEXT VISIT: continue with shoulder A/AAROM, review and update home program as needed SUBJECTIVE: 10 weeks s/p Revision surgery - reverse total shoulder replacement arthroplasty, capsular release, bone graft of the eroded glenoid, ORIF with bone graft of acromion fracture as well as repair of the posterior and anterior rotator cuff Pt reports she was able to sit at her sewing machine and use the machine-was able to hold her arm up to use/guide material through. Functional Limitations: lifting, reaching behind back, reaching overhead Pain: Pain Pain Level: 0 Pain Location: Upper Arm - Left, Shoulder - Left Post Treatment Pain Post Treatment Pain Level: (not rated, but continues to have soremess) Post Treatment Pain Location: Upper Arm - Left Post Treatment Pain Description: Sore PROMIS Scales T-scores: mean of general population = 50. 5 points is clinically meaningfully difference Percentiles provide an indication of how the patient's score ranks in relation to the general population. Higher percentile rankings indicate better function/quality of life. 50th percentile is the average of the general population and indicates half of respondents had a worse score. OBJECTIVE MEASURES WITH LEVEL OF FUNCTION: UE AROM L Shoulder Flex: 102 Degrees L Shoulder ABduction: 90 Degrees L Shoulder External Rotation: 0 Degrees L Elbow Extension: -18 UE PROM L Shoulder Flex: 114 Degrees L Shoulder External Rotation: 40 Degrees TREATMENT: Therapeutic Exercise: 1: discussed with pt her status since prior session while applying moist heating pad on L shoulder while in supine 2: completed AAROM for shoulder flexion and ext/int rotation, abduction, horizontal abd/adduction while supine 3: completed use of dowel while supine for shoulder flexion, horizontal abduction 4: pt completed use of dowel guilherme for shoulder abduction while seated Skilled Intervention: Patient was educated in proper exercise technique and purpose for exercises. Skilled judgment was used in selection of appropriate interventions. Correct performance of therapeutic exercises was facilitated with verbal, visual, and tactile cuing. Billing Therapeutic Exercise Treatment Minutes: 41 Skilled Treatment Time Minutes (timed and untimed codes): 41 Total Session Time (minutes): 44 Session Start Time : 1448 Session Stop Time : 1532 RAHUL Olsen #[id number] documented in this encounter [facility] 11-14-2023 Note HNO ID: [id number] Author: ROMINA DARNELL OTR/L Service: ? Author Type: Occupational Therapist Type: Progress Notes Filed: 11/14/2023 16:31 Note Text: Episode Visit Count: 5 in 2023, 1 in 2022 Therapist That Will Accept/Oversee The Plan Of Care: RAHUL Zarate Start of Care Date: 09/15/23 Onset Date: 09/11/23 Plan of Care Certification Date: 09/15/23 Next Certification Due Date: 12/14/23 Patient Identified by Name and Date of : Yes REHABILITATION AND SPORTS THERAPY OCCUPATIONAL THERAPY TREATMENT NOTE ASSESSMENT: Qing Fischer tolerated the session with no issues. She demonstrated improvements in active shoulder motion. She was receptive to using dowel and RUE to assist motion. The patient will continue to benefit from ongoing skilled occupational therapy to progress toward set goals. PLAN FOR NEXT VISIT: assess response to added exercises-review and update as needed, continue with AAROM for L shoulder SUBJECTIVE: 9 weeks s/p Revision surgery - reverse total shoulder replacement arthroplasty, capsular release, bone graft of the eroded glenoid, ORIF with bone graft of acromion fracture as well as repair of the posterior and anterior rotator cuff Pt reports she has been occupied with other things this past week and has not done as much of her home program for her shoulder. Pain: Pain Pain Level: 0 Pain Location: Upper Arm - Left, Shoulder - Left Post Treatment Pain Post Treatment Pain Level: 0 Post Treatment Pain Location: Upper Arm - Left, Shoulder - Left OBJECTIVE MEASURES WITH LEVEL OF FUNCTION: UE AROM L Shoulder Flex: 92 Degrees L Shoulder ABduction: 73 Degrees TREATMENT: Therapeutic Exercise: 1: discussed with pt her status since prior session while applying moist heating pad on L shoulder while in supine 2: completed AAROM for shoulder flexion and ext/int rotation, gentle abduction while supine 3: *Pt educated in and completed use of dowel for shoulder flexion while supine keeping elbows in ext-added to home program 4: pt completed use of dowel guilherme for triceps while supine 5: pt completed shoulder flexion with assist of dowel while seated 6: pt completed assisted shoulder flexion using table top and RUE Skilled Intervention: Patient was educated in proper exercise technique and purpose for exercises. Reviewed and educated patient on additions/changes for home exercise program as above (*). Skilled judgment was used in selection of appropriate interventions. Provided written instruction for home exercise program to facilitate proper performance and compliance. Correct performance of therapeutic exercises was facilitated with verbal, visual, and tactile cuing. Billing Therapeutic Exercise Treatment Minutes: 40 Total Session Time (minutes): 44 Session Start Time : 1458 Session Stop Time : 1542 ELSY Olsen/Cristopher #[id number] [facility] 11-14-2023 History of Present illness Narrative Episode Visit Count: 5 in 2023, 1 in 2022 Therapist That Will Accept/Oversee The Plan Of Care: ELSY Zarate/Cristopher Start of Care Date: 09/15/23 Onset Date: 09/11/23 Plan of Care Certification Date: 09/15/23 Next Certification Due Date: 12/14/23 Patient Identified by Name and Date of : Yes REHABILITATION AND SPORTS THERAPY OCCUPATIONAL THERAPY TREATMENT NOTE ASSESSMENT: Qing Fischer tolerated the session with no issues. She demonstrated improvements in active shoulder motion. She was receptive to using dowel and RUE to assist motion. The patient will continue to benefit from ongoing skilled occupational therapy to progress toward set goals. PLAN FOR NEXT VISIT: assess response to added exercises-review and update as needed, continue with AAROM for L shoulder SUBJECTIVE: 9 weeks s/p Revision surgery - reverse total shoulder replacement arthroplasty, capsular release, bone graft of the eroded glenoid, ORIF with bone graft of acromion fracture as well as repair of the posterior and anterior rotator cuff Pt reports she has been occupied with other things this past week and has not done as much of her home program for her shoulder. Pain: Pain Pain Level: 0 Pain Location: Upper Arm - Left, Shoulder - Left Post Treatment Pain Post Treatment Pain Level: 0 Post Treatment Pain Location: Upper Arm - Left, Shoulder - Left OBJECTIVE MEASURES WITH LEVEL OF FUNCTION: UE AROM L Shoulder Flex: 92 Degrees L Shoulder ABduction: 73 Degrees TREATMENT: Therapeutic Exercise: 1: discussed with pt her status since prior session while applying moist heating pad on L shoulder while in supine 2: completed AAROM for shoulder flexion and ext/int rotation, gentle abduction while supine 3: *Pt educated in and completed use of dowel for shoulder flexion while supine keeping elbows in ext-added to home program 4: pt completed use of dowel guilherme for triceps while supine 5: pt completed shoulder flexion with assist of dowel while seated 6: pt completed assisted shoulder flexion using table top and RUE Skilled Intervention: Patient was educated in proper exercise technique and purpose for exercises. Reviewed and educated patient on additions/changes for home exercise program as above (*). Skilled judgment was used in selection of appropriate interventions. Provided written instruction for home exercise program to facilitate proper performance and compliance. Correct performance of therapeutic exercises was facilitated with verbal, visual, and tactile cuing. Billing Therapeutic Exercise Treatment Minutes: 40 Total Session Time (minutes): 44 Session Start Time : 1458 Session Stop Time : 1542 ELSY Olsen/Cristopher #[id number] documented in this encounter [facility] 11-09-2023 Note HNO ID: [id number] Author: WOLFGANG CHOU PA-C Service: ? Author Type: Physician Product Marketing Manager Type: Progress Notes Filed: 11/27/2023 13:57 Note Text: Patient Name: QING FISCHER [facility] No: [id number] Date of Service: November 09, 2023 [facility] Postoperative patient presents for suture removal status post left shoulder removal of prominent K wires under local anesthesia with Dr. Combs 10/30/2023. Patient reports doing very well since her procedure. She is advancing away from sling restrictions and advancing with therapy protocols status post Left shoulder reverse total Shoulder Arthroplasty, extensive capsular release, biceps tenodesis, open reduction internal fixation of acromion fracture 09/11/[address] Combs. Pain is reported as minimal in office today rated 1/10 PAIN EVALUATION 11/09/2023 1014 Pain Level: 1 Pain Location: Shoulder-Left Description: Sore Duration Amount of Time: 10 Duration Units: Days Frequency: Intermittent X-rays obtained in office today display stable postoperative findings status post interval K wire removal, reverse total shoulder arthroplasty implants remain stable without interval change. EXAM: On examination Tegaderm dressing is removed and nylon sutures removed in office today without episode. Patient tolerated this well. Operative shoulder is stable with active and passive range of motion testing. No pain with direct palpation overlying the fracture site of the acromion. IMPRESSION: S/p reverse total shoulder arthroplasty, left (primary encounter diagnosis) Nontraumatic complete tear of rotator cuff, left Closed displaced fracture of acromial process, unspecified laterality, sequela RECOMMENDATION: I discussed in detail with patient nature examination findings. She will continue advancement with her postoperative recovery and rehabilitation. She will see occupational therapy for phase 1-2 shoulder protocols heat and water exercises. Return for interval follow-up with new x-rays in 8 weeks or as needed with any new or worsening symptoms. This note was partially generated using [employer] recognition system and as such may contain grammatical or word errors Wolfgang Chou PA-C November 09, 2023 [facility] 11-09-2023 History of Present illness Narrative Patient Name: QING FISCHER [facility] No: [id number] Date of Service: November 09, 2023 [facility] Postoperative patient presents for suture removal status post left shoulder removal of prominent K wires under local anesthesia with Dr. Combs 10/30/2023. Patient reports doing very well since her procedure. She is advancing away from sling restrictions and advancing with therapy protocols status post Left shoulder reverse total Shoulder Arthroplasty, extensive capsular release, biceps tenodesis, open reduction internal fixation of acromion fracture 09/11/[address] Combs. Pain is reported as minimal in office today rated 1/10 PAIN EVALUATION 11/09/2023 1014 Pain Level: 1 Pain Location: Shoulder-Left Description: Sore Duration Amount of Time: 10 Duration Units: Days Frequency: Intermittent X-rays obtained in office today display stable postoperative findings status post interval K wire removal, reverse total shoulder arthroplasty implants remain stable without interval change. EXAM: On examination Tegaderm dressing is removed and nylon sutures removed in office today without episode. Patient tolerated this well. Operative shoulder is stable with active and passive range of motion testing. No pain with direct palpation overlying the fracture site of the acromion. IMPRESSION: S/p reverse total shoulder arthroplasty, left (primary encounter diagnosis) Nontraumatic complete tear of rotator cuff, left Closed displaced fracture of acromial process, unspecified laterality, sequela RECOMMENDATION: I discussed in detail with patient nature examination findings. She will continue advancement with her postoperative recovery and rehabilitation. She will see occupational therapy for phase 1-2 shoulder protocols heat and water exercises. Return for interval follow-up with new x-rays in 8 weeks or as needed with any new or worsening symptoms. This note was partially generated using [employer] voice recognition system and as such may contain grammatical or word errors Wolfgang Chou PA-C November 09, 2023 documented in this encounter [facility] 11-09-2023 History of Present illness Narrative Radiology Service Progress Note PATIENT NAME: Qing Fischer DATE OF SERVICE: November 09, 2023 TIME: 10:22 AM PATIENT IDENTITY VERIFICATION COMPLETED USING TWO (2) IDENTIFIERS: Name and Date of confirmed by patient verbally. FALL SCREENING: Has the patient had 2 falls in the last year or 1 fall with injury or currently using an Ambulatory Assistive Device (Walker, Cane, Wheelchair, Crutches, etc.)? No PATIENT GENDER DATA: Female. status: : No status: NO. PATIENT RELEVANT IMPLANT DATA REVIEWED: Not Applicable PATIENT PRESENTS WITH AN IMPLANTABLE OR ATTACHED GRAD INTERN: No RADIOLOGY DEPARTMENT: General X-ray: Exam(s) Completed: Upper Extremity X-Ray(s): Shoulder, AP / TRUE AP / SUPRA OUTLET left PERIPHERAL IV DATA: Not applicable SIGNED BY: LIZETH Pearson) November 09, 2023 10:22 AM documented in this encounter [facility] 11-09-2023 Note HNO ID: [id number] Author: MARLEEN CADET RT(R) Service: ? Author Type: Technologist Type: Progress Notes Filed: 11/09/2023 10:22 Note Text: Radiology Service Progress Note PATIENT NAME: Qing Fischer DATE OF SERVICE: November 09, 2023 TIME: 10:22 AM PATIENT IDENTITY VERIFICATION COMPLETED USING TWO (2) IDENTIFIERS: Name and Date of confirmed by patient verbally. FALL SCREENING: Has the patient had 2 falls in the last year or 1 fall with injury or currently using an Ambulatory Assistive Device (Walker, Cane, Wheelchair, Crutches, etc.)? No PATIENT GENDER DATA: Female. status: : No status: NO. PATIENT RELEVANT IMPLANT DATA REVIEWED: Not Applicable PATIENT PRESENTS WITH AN IMPLANTABLE OR ATTACHED GRAD INTERN: No RADIOLOGY DEPARTMENT: General X-ray: Exam(s) Completed: Upper Extremity X-Ray(s): Shoulder, AP / TRUE AP / SUPRA OUTLET left PERIPHERAL IV DATA: Not applicable SIGNED BY: ZACH PearsonR) November 09, 2023 10:22 AM [facility] 11-06-2023 Note HNO ID: [id number] Author: ROMINA DARNELL OTR/L Service: ? Author Type: Occupational Therapist Type: Progress Notes Filed: 11/06/2023 17:30 Note Text: Episode Visit Count: 4 Therapist That Will Accept/Oversee The Plan Of Care: Miladis Robertson OTR/Cristopher Start of Care Date: 09/15/23 Onset Date: 09/11/23 Plan of Care Certification Date: 09/15/23 Next Certification Due Date: 12/14/23 Patient Identified by Name and Date of : Yes REHABILITATION AND SPORTS THERAPY OCCUPATIONAL THERAPY TREATMENT NOTE ASSESSMENT: Qing Fischer tolerated the session with no issues. She demonstrated improvements in comfort level with AAROM for her shoulder. She was encouraged to complete ROM several times during the day and may be completed supine or in sitting. The patient will continue to benefit from ongoing skilled occupational therapy to progress toward set goals. PLAN FOR NEXT VISIT: assess response to added exercises-review and update as needed, continue with AAROM for L shoulder SUBJECTIVE: 8 weeks s/p Revision surgery - reverse total shoulder replacement arthroplasty, capsular release, bone graft of the eroded glenoid, ORIF with bone graft of acromion fracture as well as repair of the posterior and anterior rotator cuff Pt reports she had the pins removed 10/30/2023 and will have sutures out later this week. States she now feels more comfortable with use of pulleys as she is able to assist motion with LUE, but before it was to be passive motion. States she has not been wearing her sling. Pain: Pain Pain Level: ( a little ) Pain Location: Upper Arm - Left Description: Sore Post Treatment Pain Post Treatment Pain Level: No Change Post Treatment Pain Location: Upper Arm - Left OBJECTIVE MEASURES WITH LEVEL OF FUNCTION: Hand Shoulder AROM: Left Limitation Elbow AROM: WFL Wrist AROM: WFL Left Hand AROM: WFL UE AROM Left Hand AROM: WFL UE PROM L Shoulder Flex: 110 Degrees L Shoulder ABduction: 75 Degrees TREATMENT: Therapeutic Exercise: 1: discussed with pt her status since prior session while applying moist heating pad on L shoulder while in supine 2: completed AAROM for shoulder flexion and ext/int rotation, gentle abduction while supine 3: completed AROM for elbow flex/ext, supination/pronation, wrist-all motions, finger flex, ext 4: *pt educated in and completed self AROM with hands clasped for shoulder flexion; educated in use of her cane as well for flex, abduction and forward press-added to home program 5: pt completed use of pulleys for shoulder flexion AAROM. States she has pulleys at home she can use-added to home program 6: attempted wall climbing, but pt felt more secure with use of pulleys Skilled Intervention: Patient was educated in proper exercise technique and purpose for exercises. Reviewed and educated patient on additions/changes for home exercise program as above (*). Skilled judgment was used in selection of appropriate interventions. Provided written instruction for home exercise program to facilitate proper performance and compliance. Correct performance of therapeutic exercises was facilitated with verbal, visual, and tactile cuing. Billing Therapeutic Exercise Treatment Minutes: 50 Total Session Time (minutes): 52 Session Start Time : 1404 Session Stop Time : 1456 Romina Darnell OTR/L #[id number] [facility] 11-06-2023 History of Present illness Narrative Episode Visit Count: 4 Therapist That Will Accept/Oversee The Plan Of Care: ELSY Zarate/Cristopher Start of Care Date: 09/15/23 Onset Date: 09/11/23 Plan of Care Certification Date: 09/15/23 Next Certification Due Date: 12/14/23 Patient Identified by Name and Date of : Yes REHABILITATION AND SPORTS THERAPY OCCUPATIONAL THERAPY TREATMENT NOTE ASSESSMENT: Qing Fischer tolerated the session with no issues. She demonstrated improvements in comfort level with AAROM for her shoulder. She was encouraged to complete ROM several times during the day and may be completed supine or in sitting. The patient will continue to benefit from ongoing skilled occupational therapy to progress toward set goals. PLAN FOR NEXT VISIT: assess response to added exercises-review and update as needed, continue with AAROM for L shoulder SUBJECTIVE: 8 weeks s/p Revision surgery - reverse total shoulder replacement arthroplasty, capsular release, bone graft of the eroded glenoid, ORIF with bone graft of acromion fracture as well as repair of the posterior and anterior rotator cuff Pt reports she had the pins removed 10/30/2023 and will have sutures out later this week. States she now feels more comfortable with use of pulleys as she is able to assist motion with LUE, but before it was to be passive motion. States she has not been wearing her sling. Pain: Pain Pain Level: ( a little ) Pain Location: Upper Arm - Left Description: Sore Post Treatment Pain Post Treatment Pain Level: No Change Post Treatment Pain Location: Upper Arm - Left OBJECTIVE MEASURES WITH LEVEL OF FUNCTION: Hand Shoulder AROM: Left Limitation Elbow AROM: WFL Wrist AROM: WFL Left Hand AROM: WFL UE AROM Left Hand AROM: WFL UE PROM L Shoulder Flex: 110 Degrees L Shoulder ABduction: 75 Degrees TREATMENT: Therapeutic Exercise: 1: discussed with pt her status since prior session while applying moist heating pad on L shoulder while in supine 2: completed AAROM for shoulder flexion and ext/int rotation, gentle abduction while supine 3: completed AROM for elbow flex/ext, supination/pronation, wrist-all motions, finger flex, ext 4: *pt educated in and completed self AROM with hands clasped for shoulder flexion; educated in use of her cane as well for flex, abduction and forward press-added to home program 5: pt completed use of pulleys for shoulder flexion AAROM. States she has pulleys at home she can use-added to home program 6: attempted wall climbing, but pt felt more secure with use of pulleys Skilled Intervention: Patient was educated in proper exercise technique and purpose for exercises. Reviewed and educated patient on additions/changes for home exercise program as above (*). Skilled judgment was used in selection of appropriate interventions. Provided written instruction for home exercise program to facilitate proper performance and compliance. Correct performance of therapeutic exercises was facilitated with verbal, visual, and tactile cuing. Billing Therapeutic Exercise Treatment Minutes: 50 Total Session Time (minutes): 52 Session Start Time : 1404 Session Stop Time : 1456 RAHUL Olsen #[id number] documented in this encounter [facility] 10-26-2023 Note HNO ID: [id number] Author: TONY COMBS MD Service: ? Author Type: Physician Type: Progress Notes Filed: 10/31/2023 13:19 Note Text: Patient Name: QING [facility] No: [id number] Date of Service: October 24, 2023 [facility] Patient returns for follow up approximately 6 weeks status post Left shoulder reverse total Shoulder Arthroplasty, extensive capsular release, biceps tenodesis, open reduction internal fixation of acromion fracture 09/11/[address] Combs. She continues to be pleased with her progress utilizing phase 1 protocols with occupational therapy. Pain is reported as minimal rated 0/10. She saw Wolfgang Chou 2 days ago, at that time she reported that over the past she noted new prominence and pressure point over the posterior aspect of the shoulder - now with an exposed prominent K wire. Patient denies any injury or trauma over that time. She is otherwise pain free. No fevers chills nausea vomiting or other constitutional symptoms. No incisional issues apart from above-mentioned hardware Prominence and subsequent exposure. PAIN EVALUATION 10/26/2023 1306 Pain Level: 1 Pain Location: Shoulder-Left Description: Sore Frequency: Continuous Intervention/Comfort measure: Reposition;Medication Comments: tylenol,ibuprofen prn X-rays taken in office today display anatomic alignment of the implants without signs of loosening, however there does appear to be posterior migration of the K wires with exposure through the skin identified on Y view. EXAM: On exam patient displays well healed incisions without signs of infection. Inspection displays posterior tenting of the skin in the region of the lateral K wire and exposed K wire of a few millimeters on examination today of the more medial wire. No pain with direct palpation overlying the acromion. Patient is neurovascularly intact. Operative shoulder is stable throughout PROM. IMPRESSION: S/p reverse total shoulder arthroplasty, left (primary encounter diagnosis)making excellent progress following RTSA AND ORIF Acromial fracture non-union RECOMMENDATION: I discussed in detail with patient and her family nature of examination and radiographic findings in office today. She displays excellent interval progress with her 6-week postoperative recovery. Discussed definitive management for her prominent hardware. This will require intraoperative removal to avoid associated risk of infection. Patient verbalized understanding and is in agreement with plan. Plan for OR next week - likely Wed - for K wire removal [facility] local anaesthesia. Meanwhile, she is to remain on a course of p.o. Keflex. Ok for out of sling and initiate next phase exercises Ms. Qing Fischer was seen in office today for orthopaedic evaluation. I personally have gone over the patient's updated electronic medical record and imaging studies. I've taken an updated history and performed a current physical examination. My findings have been recorded by my resident who accompanied me in this consultation above. I've gone over in detail the nature of the patient's pathology, the risks and benefits inherent in the surgery that we have discussed, the fact that I cannot provide any guarantees regarding surgery or surgical outcome as well as the need for postoperative protection and rehabilitation and follow-up. The patient understands and wishes to proceed with surgery. This will be scheduled in the near future at the patient's request. A copy of this consultation report has been sent to the patient as well as the patient's primary care physician, Dr. Mcknight. Tony Combs MD The patient was offered a surgery/procedure at a [facility] facility. The surgeon/proceduralist and patient have discussed in detail the risk of exposure to and/or potential harm posed by the COVID-19 virus with having a surgery/procedure at this time versus the risk of delaying the surgery/procedure. It is not possible to know either the risk of delaying the surgery or procedure or chance of getting an infection with perfect accuracy, but a joint decision was made between the patient and the surgeon/proceduralist to proceed at this time with the scheduled surgery/procedure as indicated on the consent form. MD Brook Mark MD [facility] 10-24-2023 Note HNO ID: [id number] Author: WOLFGANG CHOU PA-C Service: ? Author Type: Physician Product Marketing Manager Type: Progress Notes Filed: 10/26/2023 09:09 Note Text: Patient Name: QING [facility] No: [id number] Date of Service: October 24, 2023 [facility] Patient returns for follow up approximately 6 weeks status post Left shoulder reverse total Shoulder Arthroplasty, extensive capsular release, biceps tenodesis, open reduction internal fixation of acromion fracture 09/11/[address] Combs. She continues to be pleased with her progress utilizing phase 1 protocols with occupational therapy. Pain is reported as minimal rated 0/10. 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 Patient denies any injury or trauma over that time. Patient reports 0/10 pain today. No refills on medication are requested today. PAIN EVALUATION No data found in the last 1 encounters. X-rays taken in office today display anatomic alignment of the implants without signs of loosening, however there does appear to be posterior migration of the K wires with exposure through the skin identified on Y view. EXAM: On exam patient displays well healed incisions without signs of infection. Inspection displays posterior tenting of the skin in the region of the lateral K wire and exposed K wire of a few millimeters on examination today of the more medial wire. No pain with direct palpation overlying the acromion. Patient is neurovascularly intact. Operative shoulder is stable throughout PROM. IMPRESSION: S/p reverse total shoulder arthroplasty, left (primary encounter diagnosis) Closed displaced fracture of acromial process, unspecified laterality, sequela Rotator cuff tear arthropathy of left shoulder Exposed orthopaedic hardware (hcc) RECOMMENDATION: I discussed in detail with patient and her family nature of examination and radiographic findings in office today. She displays excellent interval progress with her 6-week postoperative recovery. Current presentation displays exposed orthopedic k-wire which creates an infection risk and recommend pin site care protocols with alcohol followed by padded Band-Aid over the prominent hardware until further follow-up with Dr. Combs to review definitive management for removal. She will continue with sling restrictions and phase 1 exercises, we will hold off on advancing her therapy protocols at this time. Patient is in agreement treatment plan as outlined, return to clinic with Dr. Combs for further evaluation and management. This note was partially generated using [employer] voice recognition system and as such may contain grammatical or word errors Wolfgang Chou PA-C October 24, 2023 [facility] 10-16-2023 Note HNO ID: [id number] Author: ROMINA DARNELL OTR/L Service: ? Author Type: Occupational Therapist Type: Progress Notes Filed: 10/16/2023 14:59 Note Text: Episode Visit Count: 3 Therapist That Will Accept/Oversee The Plan Of Care: RAHUL Zarate Start of Care Date: 09/15/23 Onset Date: 09/11/23 Plan of Care Certification Date: 09/15/23 Next Certification Due Date: 12/14/23 Patient Identified by Name and Date of : Yes REHABILITATION AND SPORTS THERAPY OCCUPATIONAL THERAPY PROGRESS REPORT PLAN OF CARE UPDATE: Assessment: Qing Fischer demonstrates difficulty with use of her L UE for tasks due to ongoing restrictions as she continues to heal. She does show progress in active elbow motion. She has progressed toward goals. Patient continues to present with impairments in ADL's, overall function, and range of motion that interfere with dressing, lifting, weight bearing, pulling, pushing, carrying, reaching behind back, reaching overhead, use hand with arm at shoulder level, cooking, cleaning (pulling up her pants, has not driven since prior shoulder surgery) . Current prognosis is Good due to: current objective clinical presentation, within-session changes, good support system/ coping skills . She is motivated to improve and appears compliant with her restrictions and use of sling. She will benefit from continued skilled therapy services to meet the updated goals for this plan of care as noted below. 1 session completed in 2022 Updated 10/16/2023 Goals for Episode of Care created on 09/15/23 through 01/13/24 (or until patient transfers to clinic closer to home) Patient will report a good understanding of diagnoses and OT recommendations for progression of program.-met, but ongoing as program is updated 10/16/23 Patient will demonstrate independence with ongoing home recommendations/exercise program throughout therapy plan of care.-met, but ongoing as program is updated 10/16/23 Patient will improve function in Left upper extremity in order to be able to perform prior functional tasks.-ongoing 10/16/23 Patient will report a decrease in pain in Left shoulder and upper arm to 2/10 or less at rest and with basic self-care tasks.-progressing 10/16/23 Patient will increase AROM of Left elbow to WFL in order to be able to improve function for basic self-care tasks.-progressing 10/16/23 Patient will increase passive shoulder flexion and external rotation to WFL in preparation for active range of motion when permitted by MD / BIJAN.-progressing 10/16/23 Patient/patient's spouse will demonstrate correct application of sling and verbalize understanding of proper wear/care. -progressing 10/16/23 Patient will report a good understanding of edema control, scar / wound management throughout therapy plan of care to promote non-adherent / non-tender soft tissue. Patient will demonstrate decreased edema compared to initial testing measurements. -progressing 10/16/23 Patient will report a good understanding of the use of pain reducing modalities to help manage discomfort and promote healing.-met 10/16/23 Patient Goals: be able to use the arm again-progressing 10/16/23 Patient Goals: be able to use the arm again Planned Interventions, Frequency, and Duration: 1x/week, 4 weeks Total Number of Visits Planned: 4 Planned Treatment Interventions: Therapeutic exercise (38718), Manual therapy (44592), Self-long term management (46420), Patient/Family/Caregiver Education PLAN FOR NEXT VISIT: continue with PROM for shoulder, discuss outcome of her follow-up with surgeon's office if after 10/24/2023. SUBJECTIVE: 5 weeks s/p Revision surgery - reverse total shoulder replacement arthroplasty, capsular release, bone graft of the eroded glenoid, ORIF with bone graft of acromion fracture as well as repair of the posterior and anterior rotator cuff Pt reports she forgot about the wrist AROM exercises until Monday, but did them then and yesterday. States she is fearful of using the pulleys as she may use L shoulder actively. Functional Limitations: dressing, lifting, weight bearing, pulling, pushing, carrying, reaching behind back, reaching overhead, use hand with arm at shoulder level, cooking, cleaning (pulling up her pants, has not driven since prior shoulder surgery) Pain: Pain Pain Level: 1 Pain Location: Shoulder - Left, Upper Arm - Left Description: Aching Post Treatment Pain Post Treatment Pain Level: 1 Post Treatment Pain Location: Shoulder - Left, Upper Arm - Left Post Treatment Pain Description: Aching PROMIS Scales T-scores: mean of general population = 50. 5 points is clinically meaningfully difference Percentiles provide an indication of how the patient's score ranks in relation to the general population. Higher percentile rankings indicate better function/quality of life. 50th percentile is the average of the general population and indicates half of resp (more content not included)... [facility] 10-12-2023 Note HNO ID: [id number] Author: ROMINA DARNELL OTR/L Service: ? Author Type: Occupational Therapist Type: Progress Notes Filed: 10/12/2023 18:16 Note Text: Episode Visit Count: 2 Therapist That Will Accept/Oversee The Plan Of Care: RAHUL Zarate Start of Care Date: 09/15/23 Onset Date: 09/11/23 Plan of Care Certification Date: 09/15/23 Next Certification Due Date: 12/14/23 Patient Identified by Name and Date of : Yes REHABILITATION AND SPORTS THERAPY OCCUPATIONAL THERAPY TREATMENT NOTE ASSESSMENT: Qing Fischer tolerated the session with no issues. She demonstrated improvements in completing her home program added exercises following education. She appears to have pins protruding from posterior shoulder and BIJAN was contacted via staff message. However, she does not have pain with this. She will continue to use her sling and complete her home program as advised. The patient will continue to benefit from ongoing skilled occupational therapy to progress toward set goals. PLAN FOR NEXT VISIT: continue with heat, passive shoulder motion and active motion elbow and distally SUBJECTIVE: 4.5 weeks s/p Revision surgery - reverse total shoulder replacement arthroplasty, capsular release, bone graft of the eroded glenoid, ORIF with bone graft of acromion fracture as well as repair of the posterior and anterior rotator cuff Pt reports she has noted the pins sticking out more in the back of her shoulder. She states she does not have any pain in her shoulder, but mainly due to RLS. Pain: Pain Pain Level: 0 Pain Location: Shoulder - Left, Upper Arm - Left Post Treatment Pain Post Treatment Pain Level: No Change Post Treatment Pain Location: Shoulder - Left, Upper Arm - Left OBJECTIVE MEASURES WITH LEVEL OF FUNCTION: No measurements taken this date formally TREATMENT: Therapeutic Exercise: 1: discussed with pt her status since prior session while applying moist heating pad on L shoulder while in supine 2: completed PROM for shoulder flexion and ext rotation, gentle abduction while supine 3: completed A/AAROM for elbow flex/ext, supination/pronation, wrist-all motions, finger flex, ext 4: *Pt educated in and completed additional hand motion using make it disappear sponge-square cut and pinch and pouching yellow sponges-added to home program 5: *Pt educated in additional wrist motions by writing alphabet in air with wrist.-added to home program 6: reviewed and completed scar massage Skilled Intervention: Patient was educated in proper exercise technique and purpose for exercises. Reviewed and educated patient on additions/changes for home exercise program as above (*). Skilled judgment was used in selection of appropriate interventions. Correct performance of therapeutic exercises was facilitated with verbal, visual, and tactile cuing. Billing Therapeutic Exercise Treatment Minutes: 53 Total Session Time (minutes): 55 Session Start Time : 1357 Session Stop Time : 1452 ELSY Olsen/Cristopher #[id number] [facility] 10-02-2023 Note HNO ID: [id number] Author: ROMINA DARNELL OTR/L Service: ? Author Type: Occupational Therapist Type: Progress Notes Filed: 10/02/2023 13:56 Note Text: Episode Visit Count: 2 (1 in 2023, 1 in 2022) Therapist That Will Accept/Oversee The Plan Of Care: ELSY Zarate/Cristopher Start of Care Date: 09/15/23 Onset Date: 09/11/23 Plan of Care Certification Date: 09/15/23 Next Certification Due Date: 12/14/23 Patient Identified by Name and Date of : Yes REHABILITATION AND SPORTS THERAPY OCCUPATIONAL THERAPY TREATMENT NOTE ASSESSMENT: Qing Fischer tolerated the session with no issues. She demonstrated improvements in understanding of her home program following review. She was encouraged to remove sling more often during the day and complete her home exercises to reduce/prevent unnecessary stiffness in elbow and shoulder. The patient will continue to benefit from ongoing skilled occupational therapy to progress toward set goals. PLAN FOR NEXT VISIT: assess response to added exercises, continue with passive shoulder motion and active motion elbow and distally SUBJECTIVE: 3 weeks s/p Revision surgery - reverse total shoulder replacement arthroplasty, capsular release, bone graft of the eroded glenoid, ORIF with bone graft of acromion fracture as well as repair of the posterior and anterior rotator cuff Pt reports she has been only able to complete her home exercises 1x/day average. Pain: Pain Pain Location: Shoulder - Left, Upper Arm - Left Description: Sore, Aching (tenderness) Post Treatment Pain Post Treatment Pain Level: No Change Post Treatment Pain Location: Shoulder - Left, Upper Arm - Left OBJECTIVE MEASURES WITH LEVEL OF FUNCTION: No measurements taken this date formally TREATMENT: Therapeutic Exercise: 1: discussed with pt her status since prior session while applying moist heating pad on L shoulder while in supine 2: completed PROM for shoulder flexion and ext rotation while supine 3: completed A/AAROM for elbow flex/ext, supination/pronation, wrist-all motions, finger flex, ext, opposition including review of her home program 4: *Pt educated in and completed use of dowel for PROM-shoulder ext rotation-added to home program 5: pt encouraged to complete her mobility exercises as initially advised 6: *Pt educated in and completed scar massage-added to home program Skilled Intervention: Patient was educated in proper exercise technique and purpose for exercises. Reviewed and educated patient on additions/changes for home exercise program as above (*). Skilled judgment was used in selection of appropriate interventions. Provided written instruction for home exercise program to facilitate proper performance and compliance. Correct performance of therapeutic exercises was facilitated with verbal, visual, and tactile cuing. Billing Therapeutic Exercise Treatment Minutes: 54 Total Session Time (minutes): 56 Session Start Time : 1135 Session Stop Time : 1231 Romina Darnell OTR/L #[id number] [facility] 09-29-2023 Note HNO ID: [id number] Author: WOLFGANG CHOU PA-C Service: ? Author Type: Physician Product Marketing Manager Type: Progress Notes Filed: 10/23/2023 23:33 Note Text: Patient Name: QING FISCHER [facility] No: [id number] Date of Service: September 29, 2023 [facility] Patient returns for follow up status post Left shoulder reverse total Shoulder Arthroplasty, extensive capsular release, biceps tenodesis, open reduction internal fixation of acromion fracture 09/11/[address] Combs. Overall patient states she's doing very well since procedure. Patient reports 2/10 pain today. No refills on medication are requested today. PAIN EVALUATION 09/29/2023 1053 Pain Level: 2 Pain Location: Shoulder-Left Frequency: Continuous X-rays taken in office today display anatomic alignment of the implants without signs of loosening. EXAM: On exam Tegaderm dressing is removed revealing well healing incision without signs of infection. Patient is neurovascularly intact. Operative shoulder is stable throughout PROM. IMPRESSION: Rotator cuff tear arthropathy of left shoulder (primary encounter diagnosis) RECOMMENDATION: Patient is to see occupational therapy for continued sling and phase I exercises x 6 weeks post op, then progression to phase II protocol, heat and water exercises. Patient is to return for reevaluation via virtual visit in 4 weeks' time. If they have any questions or concerns our office will gladly assist them sooner. This note was partially generated using [employer] recognition system and as such may contain grammatical or word errors Wolfgang Chou PA-C September 29, 2023 [facility] 09-15-2023 Note HNO ID: [id number] Author: Miladis Robertson OTR/L Service: ? Author Type: Occupational Therapist Type: Progress Notes Filed: 09/15/2023 3:46 PM Note Text: Episode Visit Count: 1 Therapist That Will Accept/Oversee The Plan Of Care: RAHUL Zarate Start of Care Date: 09/15/23 Onset Date: 09/11/23 Plan of Care Certification Date: 09/15/23 Next Certification Due Date: 12/14/23 Patient Identified by Name and Date of : Yes Rehab Precautions: Shoulder Precautions; Weight Bearing Status: Precaution/Activity Restriction Comments: No active shoulder motion; sling on time clock repairer with the exception for prescribed OT exercises and showering (as long as Tegaderm dressing is intact) Weight Bearing Status: NWB Current Surgical Procedure: Revision surgery - reverse total shoulder replacement arthroplasty, capsular release, bone graft of the eroded glenoid, ORIF with bone graft of acromion fracture as well as repair of the posterior and anterior rotator cuff Current Surgical Procedure Date: 09/11/23 Mechanism of Injury: Other: See comments (wear and tear) [facility] REHABILITATION AND SPORTS THERAPY OCCUPATIONAL THERAPY EVALUATION PLAN OF CARE: Assessment: Qing Fischer presents with the diagnoses of a closed displaced fracture of the acromial process, rotator cuff tear arthropathy of the left shoulder, injury of the tendon of the long head of the biceps and a contracture which she underwent surgical intervention for a reverse total shoulder replacement arthroplasty, capsular release, bone graft of the eroded glenoid, ORIF with bone graft of acromion fracture as well as repair of the posterior and anterior rotator cuff on 09/11/2023 that interferes with dressing, cooking, cleaning, grooming, weight bearing, lifting, carrying, pushing, pulling, reaching behind back, reaching overhead, use hand with arm at shoulder level (transferring, bathing, pulling up pants) . She presents with impairments in ADL's, pain, edema, overall function, range of motion and wound healing. Patient did not complete the PROMIS? (Patient Reported Outcome Measures Information System). Prognosis for therapy is Good due to: current objective clinical presentation, within-session changes, good support system/ coping skills. She will benefit from skilled therapy services to meet the goals established for this plan of care as noted below. Goals for Episode of Care created on 09/15/23 through 01/13/24 (or until patient transfers to clinic closer to home) Patient will report a good understanding of diagnoses and OT recommendations for progression of program. Patient will demonstrate independence with ongoing home recommendations/exercise program throughout therapy plan of care. Patient will improve function in Left upper extremity in order to be able to perform prior functional tasks. Patient will report a decrease in pain in Left shoulder and upper arm to 2/10 or less at rest and with basic self-care tasks. Patient will increase AROM of Left elbow to WFL in order to be able to improve function for basic self-care tasks. Patient will increase passive shoulder flexion and external rotation to WFL in preparation for active range of motion when permitted by MD / BIJAN. Patient/patient's spouse will demonstrate correct application of sling and verbalize understanding of proper wear/care. Patient will report a good understanding of edema control, scar / wound management throughout therapy plan of care to promote non-adherent / non-tender soft tissue. Patient will demonstrate decreased edema compared to initial testing measurements. Patient will report a good understanding of the use of pain reducing modalities to help manage discomfort and promote healing. Patient Goals: be able to use the arm again Planned Interventions, Frequency, and Duration: Current Frequency: 1x/week Duration: 16 weeks Total Number of Visits Planned: 16 Planned Treatment Interventions: Therapeutic exercise (78118), Manual therapy (21342), Self-long term management (35436), Patient/Family/Caregiver Education (heat pack) PLAN FOR NEXT VISIT: Add heat pack and ER stretch with cane. Patient demonstrates good understanding of plan of care and treatment. The above goals and plan of care were discussed and agreed upon by patient/family. Transfer of Care Due To: Closer to Home SUBJECTIVE: States she stayed with her son here in town after surgery, but planning to go home today after therapy. Functional Limitations: dressing, cooking, cleaning, grooming, weight bearing, lifting, carrying, pushing, pulling, reaching behind back, reaching overhead, use hand with arm at shoulder level (transferring, bathing, pulling up pants) Prior Level of Function: Independent with restrictions. Compensated due to limited shoulder motion Patient Goals: be able to use the arm again Intake Information: Prescription pre (more content not included)... [facility] 09-12-2023 Note HNO ID: [id number] Author: Juan Pope MD Service: Orthopaedic Surgery Author Type: Resident Type: Progress Notes Filed: 09/12/2023 11:43 AM Note Text: Inpatient Progress Note Orthopaedic Surgery ASSESSMENT Qing Fischer is a 78 year old female s/p Left reverse TSA on 09/11/23. PLAN: - Weightbearing: NWB LUE in sling - Dressings: Maintain tegaderm dressing until follow up - Regular diet, bowel regimen - Multimodal pain control with scheduled Tylenol, PRN oxycodone, PRN IV hydromorphone - block placed by anesthesia periop - Antibiotics: satya-op - mIVF, HLIV when tolerating adequate PO - CM/PT/OT, appreciate recs - Encourage incentive spirometry - DVT ppx: SCDs - Hgb 8.8, no indication for transfusion Dispo: Ready for discharge from ortho perspective Plan of care discussed with: Provider, RN, Patient. SUBJECTIVE: No acute events overnight. Pain well controlled Denies any fevers/chills/CP/SOB OBJECTIVE: BP: 138/64 Temp: 36.7 ?C (98.1 ?F) Temp src: Oral Pulse: 95 Resp: 18 O2 Therapy: Room Air SpO2: 97 % BMP Latest Ref Rng AND Units 09/12/2023 09/07/2023 12/27/2007 GLUCOSE 74 - 99 mg/dL 115(H) 84 98 BUN 7 - 21 mg/dL 18 14 8 CREATININE 0.58 - 0.96 mg/dL 0.75 0.73 0.5(L) SODIUM 136 - 144 mmol/L 138 141 140 POTASSIUM 3.7 - 5.1 mmol/L 4.4 4.3 3.8 CHLORIDE 97 - 105 mmol/L 107(H) 103 104 CO2 22 - 30 mmol/L 24 22 26 ANION GAP 9 - 18 mmol/L 7(L) 16 10 CALCIUM, TOTAL 8.5 - 10.2 mg/dL 8.3(L) 9.8 8.4(L) eGFR >=60 mL/min/1.73m? 81 83 - Hemoglobin (g/dL) Date Value 09/12/2023 8.8 12/27/2007 12.0 Hematocrit (%) Date Value 09/12/2023 27.9 12/27/2007 37.4 WBC (k/uL) Date Value 09/12/2023 10.42 12/27/2007 13.33 Platelet Count (k/uL) Date Value 09/12/2023 283 12/27/2007 259 Intake/Output Summary (Last 24 hours) at 09/12/2023 1141 Last data filed at 09/11/2023 2330 Gross per 24 hour Intake 1700 ml Output 950 ml Net 750 ml PHYSICAL EXAM: Gen: NAD, AANDO x3 Left Upper Extremity Inspection: Incision c/d/i, no drainage. Palpation: Appropriate TTP to incision Compartments: Arm and forearm compartments soft and compressible Sensory: SILT over shoulder, arm, forearm, hand and digits 1-5 (C5-T1) Motor: Motor intact AIN/PIN/ulnar; Vascular: radial 2+ to palp; CR < 2 sec; fingers warm AND well-perfused Juan Pope MD, PGY-2 Orthopaedic Surgery Personal cell/pager: [phone] Between 5PM to 7AM, on weekends or if urgent, please page the orthopaedic on-call resident at: [phone]) for [facility] patients [id number] for [facility] patients [id number] for [facility] patients [id number] for [facility] patients [id number] for [facility] patients [facility] 09-11-2023 Note HNO ID: [id number] Author: Floyd Ramos AA Service: ? Author Type: Ground Operations Supervisor Type: Anesthesia Procedure Notes Filed: 09/11/2023 1:11 PM Note Text: ANESTHESIOLOGY PROCEDURE NOTE Airway General Information Procedure Start Time/Medication Administration: 09/11/2023 12:56 PM Patient location during procedure: OR Staffing CAA: Floyd Ramos AA Indications and Patient Condition Indications for airway management: anesthesia Preoxygenated: yes anesthesia circuit Method: sleep Difficult Mask: No Final Airway Details Final airway type: endotracheal airway Final Endotracheal Airway: ETT Cuffed: yes Successful intubation technique: direct laryngoscopy Blade: Yulia Blade size: #4 ETT size (mm): 6.5 Measurement (cm): 19 Placement verified by: chest auscultation and capnometry Cormack-Lehane Classification: grade I - full view of glottis Number of attempts at approach: 1 Airway not difficult SIGNATURE: ADRIANO Meredith PATIENT NAME: Qing Fischer DATE: September 11, 2023 TIME: 1:11 PM CSN: [id number] [facility] 09-11-2023 Note HNO ID: [id number] Author: Sil Sanchez MD Service: Anesthesiology Author Type: Anesthesiologist Type: Anesthesia Procedure Notes Filed: 09/11/2023 11:31 AM Note Text: ANESTHESIOLOGY PROCEDURE NOTE Peripheral Nerve Block General Information Procedure Start Time/Medication Administration: 09/11/2023 11:05 AM Procedure End time: 09/11/2023 11:18 AM Patient location during procedure: pre-op Timeout Performed Pre-procedure: timeout performed Consent Obtained: Yes Patient identity confirmed: arm band Reason for block: post-op pain management/at surgeon's request Staffing Anesthesiologist: Sil Sanchez MD Preparation Sterility Preparation: hand hygiene performed prior to procedure, sterile gloves, drapes, and procedure tray, surgical cap used, mask used, sterile drape used during line insertion, skin prep agent completely dried prior to procedure Procedure Details Patient Position: sitting Monitoring: Pulse OX, EKG and NIBP Block Type Upper Extremity: brachial plexus Approach: interscalene Laterality: left Injection Technique: single-shot Ultrasound Guided: Yes Image in Chart: yes Local Infiltration: Yes Needle Needle Type: echogenic Needle Gauge: 21 G Needle Length: 50 mm Needle Localization: ultrasound Assessment Injection assessment: negative aspiration, no paresthesia on injection, incremental injection and local visualized surrounding nerve on ultrasound Medications Administered dexamethasone sodium phosphate injection (DECADRON) - peripheral nerve block 4 mg - 09/11/2023 11:12:00 AM ropivacaine (PF) 5 mg/mL (0.5 %) injection (NAROPIN) - peripheral nerve block 15 mL - 09/11/2023 11:12:00 AM SIGNATURE: Sil Sanchez MD PATIENT NAME: Qing Fischer DATE: September 11, 2023 TIME: 11:22 AM CSN: [id number] [facility] 08-29-2023 Note HNO ID: [id number] Author: Tony Combs MD Service: ? Author Type: Physician Type: Progress Notes Filed: 08/30/2023 2:03 PM Note Text: [facility] NOTE DEPARTMENT OF ORTHOPAEDICS Evaluation with Tony Combs Jr., M.D. Patient Name: QING FISCHER [facility] No: [id number] : 1945 Qing Fischer is a pleasant and active 78 year old female who presents for follow up of her left shoulder rotator cuff arthropathy. She was last seen on 07/18/2023, with a tentative plan to proceed with a left reverse total shoulder arthroplasty. A CT was obtained for preoperative planning and to better delineate her bony anatomy. Today, she endorses ongoing left shoulder pain. Her symptoms are overall unchanged compared to her last appointment. On examination of the left shoulder, there is no gross deformity. She has 0 degrees of active forward flexion and 90 degrees of passive forward flexion. She has 0 degrees of active external rotation. CT of the left shoulder was obtained 08/01/2023 and personally reviewed. Imaging demonstrates severe left rotator cuff arthropathy with superior subluxation of the humeral head. There is fragmentation of the left acromion. Qing Fischer is a pleasant and active 78 year old female who presents for follow up of her left shoulder rotator cuff arthropathy. We again had a lengthy discussion regarding the patient's presentation and symptomatology. We showed the patient and her family her xrays today. We discussed options for operative and nonoperative management. Operative management would consist of left reverse total shoulder arthroplasty, biceps tenodesis vs tenolysis, and open reduction and internal fixation of the left acromion. Nonopertive management would consist of activity modification, physical therapy, corticosteroid injections, and antiinflammatories. We discussed the risks and benefits of surgery, and no guarantees were made or implied. At this time, the patient would like to proceed with surgery. We did discuss that Dr. Combs is retiring at the end of November 2023, and she may proceed with surgery with him versus one of his colleagues. The patient would like to proceed with Dr. Combs. Surgery will include Reverse TSA, contracture release, biceps tenodesis, possible bone graft of glenoid, possible tendon transfer all involving the left shoulder. This will be performed under combined general 7 regional anaesthesia on an inpatiient basis A copy of this note will be sent to the patient's PCP Dr. Mcknight. Ms. Qing Fischer was seen in office today for orthopaedic evaluation. I personally have gone over the patient's updated electronic medical record and imaging studies. I've taken an updated history and performed a current physical examination. My findings have been recorded by my resident who accompanied me in this consultation above. I've gone over in detail the nature of the patient's pathology, the risks and benefits inherent in the surgery that we have discussed, the fact that I cannot provide any guarantees regarding surgery or surgical outcome as well as the need for postoperative protection and rehabilitation and follow-up. The patient understands and wishes to proceed with surgery. This will be scheduled in the near future at the patient's request. A copy of this consultation report has been sent to the patient as well as the patient's primary care physician, Dr. Mcknight. Tony Combs MD The patient was offered a surgery/procedure at a [facility] facility. The surgeon/proceduralist and patient have discussed in detail the risk of exposure to and/or potential harm posed by the COVID-19 virus with having a surgery/procedure at this time versus the risk of delaying the surgery/procedure. It is not possible to know either the risk of delaying the surgery or procedure or chance of getting an infection with perfect accuracy, but a joint decision was made between the patient and the surgeon/proceduralist to proceed at this time with the scheduled surgery/procedure as indicated on the consent form. Tony Combs MD Recorded by: Luis Barney MD ([facility] 08-29-2023 History of Present illness Narrative [facility] NOTE DEPARTMENT OF ORTHOPAEDICS Evaluation with Tony Combs Jr., M.D. Patient Name: QING FISCHER [facility] No: [id number] : 1945 Qing Fischer is a pleasant and active 78 year old female who presents for follow up of her left shoulder rotator cuff arthropathy. She was last seen on 07/18/2023, with a tentative plan to proceed with a left reverse total shoulder arthroplasty. A CT was obtained for preoperative planning and to better delineate her bony anatomy. Today, she endorses ongoing left shoulder pain. Her symptoms are overall unchanged compared to her last appointment. On examination of the left shoulder, there is no gross deformity. She has 0 degrees of active forward flexion and 90 degrees of passive forward flexion. She has 0 degrees of active external rotation. CT of the left shoulder was obtained 08/01/2023 and personally reviewed. Imaging demonstrates severe left rotator cuff arthropathy with superior subluxation of the humeral head. There is fragmentation of the left acromion. Qing Fischer is a pleasant and active 78 year old female who presents for follow up of her left shoulder rotator cuff arthropathy. We again had a lengthy discussion regarding the patient's presentation and symptomatology. We showed the patient and her family her xrays today. We discussed options for operative and nonoperative management. Operative management would consist of left reverse total shoulder arthroplasty, biceps tenodesis vs tenolysis, and open reduction and internal fixation of the left acromion. Nonopertive management would consist of activity modification, physical therapy, corticosteroid injections, and antiinflammatories. We discussed the risks and benefits of surgery, and no guarantees were made or implied. At this time, the patient would like to proceed with surgery. We did discuss that Dr. Combs is retiring at the end of November 2023, and she may proceed with surgery with him versus one of his colleagues. The patient would like to proceed with Dr. Combs. Surgery will include Reverse TSA, contracture release, biceps tenodesis, possible bone graft of glenoid, possible tendon transfer all involving the left shoulder. This will be performed under combined general 7 regional anaesthesia on an inpatiient basis A copy of this note will be sent to the patient's PCP Dr. Mcknight. Ms. Qing Fischer was seen in office today for orthopaedic evaluation. I personally have gone over the patient's updated electronic medical record and imaging studies. I've taken an updated history and performed a current physical examination. My findings have been recorded by my resident who accompanied me in this consultation above. I've gone over in detail the nature of the patient's pathology, the risks and benefits inherent in the surgery that we have discussed, the fact that I cannot provide any guarantees regarding surgery or surgical outcome as well as the need for postoperative protection and rehabilitation and follow-up. The patient understands and wishes to proceed with surgery. This will be scheduled in the near future at the patient's request. A copy of this consultation report has been sent to the patient as well as the patient's primary care physician, Dr. Mcknight. Tony Combs MD The patient was offered a surgery/procedure at a [facility] facility. The surgeon/proceduralist and patient have discussed in detail the risk of exposure to and/or potential harm posed by the COVID-19 virus with having a surgery/procedure at this time versus the risk of delaying the surgery/procedure. It is not possible to know either the risk of delaying the surgery or procedure or chance of getting an infection with perfect accuracy, but a joint decision was made between the patient and the surgeon/proceduralist to proceed at this time with the scheduled surgery/procedure as indicated on the consent form. Tony Combs MD Recorded by: Luis Barney MD (scribe) documented in this encounter [facility] 08-01-2023 Note HNO ID: [id number] Author: Sina Coronado RT(R) Service: Radiology Author Type: Technologist Type: Progress Notes Filed: 08/01/2023 12:37 PM Note Text: Radiology Service Progress Note PATIENT NAME: Qing Fischer DATE OF SERVICE: August 01, 2023 TIME: 12:37 PM PATIENT IDENTITY VERIFICATION COMPLETED USING TWO (2) IDENTIFIERS: Name and Date of confirmed by patient verbally and Name and Date of confirmed by identification band. FALL SCREENING: Has the patient had 2 falls in the last year or 1 fall with injury or currently using an Ambulatory Assistive Device (Walker, Cane, Wheelchair, Crutches, etc.)? No PATIENT GENDER DATA: Female. status: : No status: NO. PATIENT RELEVANT IMPLANT DATA REVIEWED: Not Applicable RADIOLOGY DEPARTMENT: CT; Exam(s) Completed: Left Shoulder PERIPHERAL IV DATA: Not applicable SIGNED BY: RT Maxwell(R) August 01, 2023 12:37 PM [facility] 07-18-2023 Note HNO ID: [id number] Author: Tony Combs MD Service: ? Author Type: Physician Type: Progress Notes Filed: 07/22/2023 10:43 AM Note Text: [facility] NOTE DEPARTMENT OF ORTHOPAEDICS Evaluation with Tony Combs Jr., M.D. Patient Name: QING FISCHER [facility] No: [id number] : 1945 This is an active 78 year old female who reports left shoudler pain.and complete loss of active mobility.She is referred for consultation by her PCP, Dr. Mcknight . She reports a remote fall resulting in injury. Approximately 3 years ago she sought care and had a failed RTCR on her left shoulder. She was referred to Dr. Hilario and had a right reverse total shoulder with lat transfer 2 years ago. She is seeking a second opinion as Dr. Hilario does not accept medicare. Allergies: Tylenol #3 [Codeine] Current Outpatient Medications Medication Sig estradiol(VAGIFEM 25 MCG VAGINAL TAB) Insert one(1) tablet vaginally twice weekly. IBUPROFEN 600 MG TAB 1 Tab ORAL EVERY 6 HOURS NEEDED multivitamins w-minerals/lut(CENTRAL SRIKANTH SENIOR-LUTEIN TAB) calcium/mag oxide/vitamin d3(CORAL CALCIUM PLUS 250 MG-125 MG-200 UNIT CAP) ubidecarenone(CO Q-10 10 MG CAP) grape seed extract(GRAPE SEED 25 MG CAP) glucosamine hcl/msm(GLUCOSAMINE MSM 1,500 MG-500 MG/30 ML ORAL LIQUID) PSEUDOEPHEDRINE 30 MG TAB No current facility-administered medications for this visit. PAST MEDICAL HISTORY Diagnosis Date Esophageal reflux on nexium Unspecified sinusitis (chronic) FAMILY HISTORY Problem Relation Age of Onset Hypertension Father Hypertension Sister Coronary Artery Disease Father Coronary Artery Disease Sister [place] in 30s PAST SURGICAL HISTORY Procedure Laterality Date ASPIRATION BREAST CYST 1992 x2, many years ago EGD 2006 OTHER ACCESSORY cervical cryotherapy 1980s, nml pap since then EXAM: Is alert and oriented and demonstrates good balance and gait. She does not demonstrate any signs of central nervous system dysfunction or cervical radiculopathy or peripheral neuropathy Well healed arthroscopic incisions of the left shoulder. TTP over the acromion, biceps tendon, and the rotator cuff foot print. 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 No ability to ER. She has IR to her lumbar spine and still has good subscapularis strength. She is distally neurovascularly intact. IMAGING: Multiple views of the left shoulder demonstrate severe rotator cuff arthropathy with acromion fracture/nonunion. There is significant inferior humeral osteophyte. IMPRESSION: Left rotator cuff arthropathy with acromion fracture/nonunion, left, capsular contracture left shoulder, right shoulder demonstrates reverse shoulder arthroplasty with sense of instability but without stephanie dislocation. X-rays obtained today show a very large diameter implant for the patient's small size and the glenosphere appears to be somewhat dorsally angulated without stephanie dissociation. RECOMMENDATION: We discussed the nature and etiology of her pathology. Specifically discussed the only definitive management of this would be reverse total shoulder arthroplasty. Additionally we did discuss that in this event ORIF of the coming fracture/nonunion would need to occur. At this time we would like to obtain a CT to better delineate the bony anatomy. Additionally we will obtain imaging of her right shoulder. She will see me back in this is been obtained. Recorded by: Barrington Freitas DO [facility] 07-18-2023 Note HNO ID: [id number] Author: Jennifer Hernandez RT(R) Service: Radiology Author Type: Technologist Type: Progress Notes Filed: 07/18/2023 12:38 PM Note Text: Radiology Service Progress Note PATIENT NAME: Qing Fischer DATE OF SERVICE: July 18, 2023 TIME: 12:38 PM PATIENT IDENTITY VERIFICATION COMPLETED USING TWO (2) IDENTIFIERS: Name and Date of confirmed by patient verbally and Name and Date of confirmed by identification band. FALL SCREENING: Has the patient had 2 falls in the last year or 1 fall with injury or currently using an Ambulatory Assistive Device (Walker, Cane, Wheelchair, Crutches, etc.)? No PATIENT GENDER DATA: Female. status: : No status: NO. PATIENT RELEVANT IMPLANT DATA REVIEWED: Not Applicable RADIOLOGY DEPARTMENT: General X-ray: Exam(s) Completed: Upper Extremity X-Ray(s): Shoulder, AP / TRUE AP / AXILLARY / SUPRA OUTLET right PERIPHERAL IV DATA: Not applicable SIGNED BY: RT Shemar(R) July 18, 2023 12:38 PM [facility] 07-18-2023 Note HNO ID: [id number] Author: Diana Ayala RT(Angel) Service: Radiology Author Type: Weigh Box Tender Type: Progress Notes Filed: 07/18/2023 12:03 PM Note Text: Radiology Service Progress Note PATIENT NAME: Qing Fischer DATE OF SERVICE: July 18, 2023 TIME: 12:02 PM PATIENT IDENTITY VERIFICATION COMPLETED USING TWO (2) IDENTIFIERS: Name and Date of confirmed by patient verbally and Name and Date of confirmed by identification band. FALL SCREENING: Has the patient had 2 falls in the last year or 1 fall with injury or currently using an Ambulatory Assistive Device (Walker, Cane, Wheelchair, Crutches, etc.)? No PATIENT GENDER DATA: Female. status: : No status: NO. PATIENT RELEVANT IMPLANT DATA REVIEWED: Not Applicable RADIOLOGY DEPARTMENT: General X-ray: Exam(s) Completed: Upper Extremity X-Ray(s): Shoulder, AP / TRUE AP / AXILLARY left PERIPHERAL IV DATA: Not applicable SIGNED BY: Diana Jamie RT(R) July 18, 2023 12:02 PM [facility] 07-18-2023 History of Present illness Narrative [facility] NOTE DEPARTMENT OF ORTHOPAEDICS Evaluation with Tony Combs Jr., M.D. Patient Name: QING FISCHER [facility] No: [id number] : 1945 This is an active 78 year old female who reports left shoudler pain.and complete loss of active mobility.She is referred for consultation by her PCP, Dr. Mcknight . She reports a remote fall resulting in injury. Approximately 3 years ago she sought care and had a failed RTCR on her left shoulder. She was referred to Dr. Hilario and had a right reverse total shoulder with lat transfer 2 years ago. She is seeking a second opinion as Dr. Hilario does not accept medicare. Allergies: Tylenol #3 [Codeine] Current Outpatient Medications Medication Sig estradiol(VAGIFEM 25 MCG VAGINAL TAB) Insert one(1) tablet vaginally twice weekly. IBUPROFEN 600 MG TAB 1 Tab ORAL EVERY 6 HOURS NEEDED multivitamins w-minerals/lut(CENTRAL SRIKANTH SENIOR-LUTEIN TAB) calcium/mag oxide/vitamin d3(CORAL CALCIUM PLUS 250 MG-125 MG-200 UNIT CAP) ubidecarenone(CO Q-10 10 MG CAP) grape seed extract(GRAPE SEED 25 MG CAP) glucosamine hcl/msm(GLUCOSAMINE MSM 1,500 MG-500 MG/30 ML ORAL LIQUID) PSEUDOEPHEDRINE 30 MG TAB No current facility-administered medications for this visit. PAST MEDICAL HISTORY Diagnosis Date Esophageal reflux on nexium Unspecified sinusitis (chronic) FAMILY HISTORY Problem Relation Age of Onset Hypertension Father Hypertension Sister Coronary Artery Disease Father Coronary Artery Disease Sister [place] in 30s PAST SURGICAL HISTORY Procedure Laterality Date ASPIRATION BREAST CYST 1992 x2, many years ago EGD 2006 OTHER ACCESSORY cervical cryotherapy , nml pap since then EXAM: Is alert and oriented and demonstrates good balance and gait. She does not demonstrate any signs of central nervous system dysfunction or cervical radiculopathy or peripheral neuropathy Well healed arthroscopic incisions of the left shoulder. TTP over the acromion, biceps tendon, and the rotator cuff foot print. 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 No ability to ER. She has IR to her lumbar spine and still has good subscapularis strength. She is distally neurovascularly intact. IMAGING: Multiple views of the left shoulder demonstrate severe rotator cuff arthropathy with acromion fracture/nonunion. There is significant inferior humeral osteophyte. IMPRESSION: Left rotator cuff arthropathy with acromion fracture/nonunion, left, capsular contracture left shoulder, right shoulder demonstrates reverse shoulder arthroplasty with sense of instability but without stephanie dislocation. X-rays obtained today show a very large diameter implant for the patient's small size and the glenosphere appears to be somewhat dorsally angulated without stephanie dissociation. RECOMMENDATION: We discussed the nature and etiology of her pathology. Specifically discussed the only definitive management of this would be reverse total shoulder arthroplasty. Additionally we did discuss that in this event ORIF of the coming fracture/nonunion would need to occur. At this time we would like to obtain a CT to better delineate the bony anatomy. Additionally we will obtain imaging of her right shoulder. She will see me back in this is been obtained. Recorded by: Barrington Freitas DO documented in this encounter [facility] 07-18-2023 History of Present illness Narrative Radiology Service Progress Note PATIENT NAME: Qing Fischer DATE OF SERVICE: July 18, 2023 TIME: 12:02 PM PATIENT IDENTITY VERIFICATION COMPLETED USING TWO (2) IDENTIFIERS: Name and Date of confirmed by patient verbally and Name and Date of confirmed by identification band. FALL SCREENING: Has the patient had 2 falls in the last year or 1 fall with injury or currently using an Ambulatory Assistive Device (Walker, Cane, Wheelchair, Crutches, etc.)? No PATIENT GENDER DATA: Female. status: : No status: NO. PATIENT RELEVANT IMPLANT DATA REVIEWED: Not Applicable RADIOLOGY DEPARTMENT: General X-ray: Exam(s) Completed: Upper Extremity X-Ray(s): Shoulder, AP / TRUE AP / AXILLARY left PERIPHERAL IV DATA: Not applicable SIGNED BY: RT Kayla(R) July 18, 2023 12:02 PM Radiology Service Progress Note PATIENT NAME: Qing Fischer DATE OF SERVICE: July 18, 2023 TIME: 12:38 PM PATIENT IDENTITY VERIFICATION COMPLETED USING TWO (2) IDENTIFIERS: Name and Date of confirmed by patient verbally and Name and Date of confirmed by identification band. FALL SCREENING: Has the patient had 2 falls in the last year or 1 fall with injury or currently using an Ambulatory Assistive Device (Walker, Cane, Wheelchair, Crutches, etc.)? No PATIENT GENDER DATA: Female. status: : No status: NO. PATIENT RELEVANT IMPLANT DATA REVIEWED: Not Applicable RADIOLOGY DEPARTMENT: General X-ray: Exam(s) Completed: Upper Extremity X-Ray(s): Shoulder, AP / TRUE AP / AXILLARY / SUPRA OUTLET right PERIPHERAL IV DATA: Not applicable SIGNED BY: RT Shemar(R) July 18, 2023 12:38 PM documented in this encounter [facility] Evaluation + Plan note No data available for this section [facility] [place] Evaluation note Diagnosis Pain Generalized pain Chronic right shoulder pain Pain in joint, shoulder region [facility] Rotator cuff tear arthropathy of left shoulder- Primary Chronic right shoulder pain Pain in joint, shoulder region Nontraumatic complete tear of rotator cuff, left Injury of tendon of long head of biceps, left, initial encounter Closed displaced fracture of acromial process, unspecified laterality, sequela [facility] Rotator cuff tear arthropathy of left shoulder- Primary Closed displaced fracture of acromial process, unspecified laterality, sequela Nontraumatic complete tear of rotator cuff, left Injury of tendon of long head of biceps, left, initial encounter Contracture of shoulder, left [facility] Diagnosis Closed displaced fracture of acromial process, unspecified laterality, sequela- Primary Status post reverse arthroplasty of left shoulder documented in this encounter [facility] note* Diagnosis Decreased range of motion of left shoulder- Primary S/P reverse total shoulder arthroplasty, 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, 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 documented in this encounter [facility] note* Diagnosis S/P reverse total shoulder arthroplasty, left documented in this encounter [facility] note* Diagnosis Decreased range of motion of left shoulder- Primary S/P reverse total shoulder arthroplasty, 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, 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 documented in this encounter [facility] note* Diagnosis Decreased range of motion of left shoulder- Primary S/P reverse total shoulder arthroplasty, 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, 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 documented in this encounter [facility] note* Diagnosis S/P reverse total shoulder arthroplasty, left- Primary Nontraumatic complete tear of rotator cuff, left Closed displaced fracture of acromial process, unspecified laterality, sequela documented in this encounter [facility] note* Diagnosis Decreased range of motion of left shoulder- Primary S/P reverse total shoulder arthroplasty, 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, 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 documented in this encounter [facility] note* Diagnosis S/P reverse total shoulder arthroplasty, left- Primary documented in this encounter [facility] note* Diagnosis S/P reverse total shoulder arthroplasty, left documented in this encounter [facility] note* Diagnosis S/P reverse total shoulder arthroplasty, left documented in this encounter [facility] note* Diagnosis Pre-op evaluation- Primary Preoperative examination, unspecified Hypothyroidism, unspecified type OAB (overactive bladder) Hypertonicity of bladder Gastroesophageal reflux disease without esophagitis Esophageal reflux S/P reverse total shoulder arthroplasty, left- Primary S/P reverse total shoulder arthroplasty, left documented in this encounter [facility] Discharge instructions No data available for this section [facility] Progress note No data available for this section [facility] Reason for referral (narrative)* Diagnostic Procedure Only (Routine) - Closed Specialty Diagnoses / Procedures Referred By Contac t Referred To Contact XR IMAGING Diagnoses Chronic right shoulder pain Procedures XR SHOULDER GENERAL 3V OR MORE AP/TRUE AP/OTHER RIGHT RADEX SHOULDER COMPLETE MINIMUM [address] [place] [address] [place] [address] Xr Imaging [place] [facility] Referral ID Status Reason Start Date Expiration Date V isits Requested Visits Authorized [id number] Closed Auto-Generate d Referral 07/18/2023 08/16/2024 1 1 * Consult, Test, Treat (Routine) - Pending Review Specialty Diagnoses / Procedures Referred By Diegoac t Referred To Contact Diagnoses Rotator cuff tear arthropathy of left shoulder Procedures REFER TO PACC - PRE ANESTHESIA CONSULTATION CLINIC OFFICE/OUTPATIENT [facility] 60-[place] [address] [place] [address] Referral ID Status Reason Start Date Expiration Date Visits Requested Visits Authorized [id number] Pending Review PCP Requested Referral 3 07/17/2024 1 1 * MRI/CT (Routine) - Authorized Specialty Diagnoses / Procedures Referred By Contac t Referred To Contact CT IMAGING Diagnoses Rotator cuff tear arthropathy of left shoulder Procedures CT SHOULDER WO IVCON LEFT CT UPPER EXTREMITY W/[place] [address] [place] [address] [facility] [place] [address] Referral ID Status Reason Start Date Expiration Date Visits Requested Visits Authorized [id number] Authorized Auto-Generat ed Referral 3 08/16/2024 1 1 [facility] for referral (narrative)* Diagnostic Procedure Only (Routine) - Closed Specialty Diagnoses / Procedures Referred By Contac t Referred To Contact XR IMAGING Diagnoses S/P reverse total shoulder arthroplasty, left Procedures XR SHOULDER GENERAL 3V OR MORE AP/TRUE AP/OTHER LEFT RADEX SHOULDER COMPLETE MINIMUM 2 VIEWS Wolfgang Chou PA-C [address] [place] [phone] [place] [address] Referral ID Status Reason Start Date Expiration Date V isits Requested Visits Authorized [id number] Closed Auto-Generate d Referral 11/08/2023 12/07/2024 1 1 [facility] for referral (narrative)* - Pending Review Specialty Diagnoses / Procedures Referred By Contac t Referred To Contact Diagnoses S/P reverse total shoulder arthroplasty, 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, left Closed displaced fracture of acromial process, unspecified laterality, sequela Procedures CONSULT TO [facility] Wolfgang Chou PA-C [address] [place] [id number] Referral ID Status Reason Start Date Expiration Date V isits Requested Visits Authorized [id number] Pending Review 11/09/2023 02/07/2024 1 1 * Diagnostic Procedure Only (Routine) - Closed Specialty Diagnoses / Procedures Referred By Contac t Referred To Contact XR IMAGING Diagnoses S/P reverse total shoulder arthroplasty, left Procedures XR SHOULDER GENERAL 3V OR MORE AP/TRUE AP/OTHER LEFT RADEX SHOULDER COMPLETE MINIMUM 2 VIEWS Wolfgang Chou PA-C [address] [place] [phone] Xr Imaging [id number] Referral ID Status Reason Start Date Expiration Date V isits Requested Visits Authorized [id number] Closed Auto-Generate d Referral 11/08/2023 12/07/2024 1 1 [facility] for referral (narrative)* Diagnostic Procedure Only (Routine) - Closed Specialty Diagnoses / Procedures Referred By Contac t Referred To Contact XR IMAGING Diagnoses S/P reverse total shoulder arthroplasty, left Procedures XR SHOULDER GENERAL 3V OR MORE AP/TRUE AP/OTHER LEFT RADEX SHOULDER COMPLETE MINIMUM 2 VIEWS Wolfgang Chou PA-C [address] [place] [phone] [place] [address] Referral ID Status Reason Start Date Expiration Date V isits Requested Visits Authorized [id number] Closed Auto-Generate d Referral 01/10/2024 02/08/2025 1 1 [facility] for referral (narrative)* Diagnostic Procedure Only (Routine) - Closed Specialty Diagnoses / Procedures Referred By Contac t Referred To Contact XR IMAGING Diagnoses S/P reverse total shoulder arthroplasty, left Procedures XR SHOULDER GENERAL 3V OR MORE AP/TRUE AP/OTHER LEFT RADEX SHOULDER COMPLETE MINIMUM 2 VIEWS Wolfgang Chou PA-C [address] [place] [phone] [place] [address] Referral ID Status Reason Start Date Expiration Date V isits Requested Visits Authorized [id number] Closed Auto-Generate d Referral 01/10/2024 02/08/2025 1 1 T [facility] for referral (narrative)* Diagnostic Procedure Only (Routine) - Closed Specialty Diagnoses / Procedures Referred By Contac t Referred To Contact XR IMAGING Diagnoses S/P reverse total shoulder arthroplasty, left Procedures XR SHOULDER GENERAL 3V OR MORE AP/TRUE AP/OTHER LEFT RADEX SHOULDER COMPLETE MINIMUM 2 VIEWS Wolfgang Chou PA-C [address] [place] [phone] [place] [address] Referral ID Status Reason Start Date Expiration Date V isits Requested Visits Authorized [id number] Closed Auto-Generate d Referral 04/25/2024 05/22/2025 1 1 T [facility] for referral (narrative)* Diagnostic Procedure Only (Routine) - Closed Specialty Diagnoses / Procedures Referred By Contac t Referred To Contact XR IMAGING Diagnoses S/P reverse total shoulder arthroplasty, left Procedures XR SHOULDER GENERAL 3V OR MORE AP/TRUE AP/OTHER LEFT RADEX SHOULDER COMPLETE MINIMUM 2 VIEWS Wolfgang Chou PA-C [address] [place] [phone] [place] [address] Referral ID Status Reason Start Date Expiration Date V isits Requested Visits Authorized [id number] Closed Auto-Generate d Referral 04/25/2024 05/22/2025 1 1 [facility] for visit Narrative* Diagnostic Procedure Only (Routine) - Closed Specialty Diagnoses / Procedures Referred By Contac t Referred To Contact XR IMAGING Diagnoses Pain Procedures XR SHOULDER GENERAL 3V OR MORE AP/TRUE AP/OTHER LEFT RADEX SHOULDER COMPLETE MINIMUM 2 VIEWS Leeann Mcgee MD [address] [place] [address] Xr Imaging [id number] Referral ID Status Reason Start Date Expiration Date V isits Requested Visits Authorized [id number] Closed Auto-Generate d Referral 06/08/2023 07/07/2024 1 1 [facility] for visit Narrative* Diagnostic Procedure Only (Routine) - Closed Specialty Diagnoses / Procedures Referred By Contac t Referred To Contact XR IMAGING Diagnoses S/P reverse total shoulder arthroplasty, left Procedures XR SHOULDER GENERAL 3V OR MORE AP/TRUE AP/OTHER LEFT RADEX SHOULDER COMPLETE MINIMUM 2 VIEWS Wolfgang Chou PA-C [address] [place] [phone] X[id number] Referral ID Status Reason Start Date Expiration Date V isits Requested Visits Authorized [id number] Closed Auto-Generate d Referral 11/08/2023 12/07/2024 1 1 [facility] for visit Narrative* Diagnostic Procedure Only (Routine) - Closed Specialty Diagnoses / Procedures Referred By Contac t Referred To Contact XR IMAGING Diagnoses S/P reverse total shoulder arthroplasty, left Procedures XR SHOULDER GENERAL 3V OR MORE AP/TRUE AP/OTHER LEFT RADEX SHOULDER COMPLETE MINIMUM 2 VIEWS Wolfgang Chou PA-C [id number] [place] [address] Referral ID Status Reason Start Date Expiration Date V isits Requested Visits Authorized [id number] Closed Auto-Generate d Referral 04/25/2024 05/22/2025 1 1 [facility] Summary Purpose Family History No Family History Records FoundNo Family History Records FoundNo Family History Records FoundNo Family History Records FoundNo Family History Records FoundNo Family History Records FoundNo Family History Records FoundNo Family History Records Found No data available for this section Advance Directives Documents on File Type Date Recorded 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 Advance Directives and Livin g Will 04/06/2019 11:27 AM Latest Code Status on File Code Status Date Activated Date Inactivated Comments Full Code 09/11/2023 6:23 PM 09/12/2023 5:24 PM Question Answer Comments Full Code Order Discussed With: Patient Latest Code Status on File Code Status Date Activated Date Inactivated Comments Full Code 09/11/2023 6:23 PM 09/12/2023 5:24 PM Question Answer Comments Full Code Order Discussed With: Patient Date Activated Date Inactivated Comments 09/11/2023 6:23 PM 09/12/2023 5:24 PM Question Answer Comments Full Code Order Discussed With: Patient Date Activated Date Inactivated Comments 09/11/2023 6:23 PM 09/12/2023 5:24 PM Question Answer Comments Full Code Order Discussed With: Patient Hospital Course Note MR#: [id number] [facility] Pt. Name: Qing Fischer Admitted: 07/13/2018 Discharged: 07/19/2018 Date of : 1945 Physician: Abiodun Bahena M.D. DISCHARGE SUMMARY HOSPITAL COURSE: This is a 73-year-old female, who was admitted following a fall from standing on 07/13/2018. She underwent a right hip variable angle hip screw placement on 07/13/2018 without complication. She was transferred back to the floor and received IV antibiotics as well as Lovenox and pain medication. The patient was made nonweightbearing. She had no issues with her wound throughout her stay and was discharged on 07/19/2018 with prescriptions for Percocet, Colace, and Lovenox and instructed to follow up in clinic in [address] Bahena. Electronically Signed by: Abiodun Bahena M.D. 08/05/2018 12:41 P Abiodun Bahena M.D. I personally saw this patient on the day of the encounter, performed the noriega portion(s) of the service and partic (more content not included)... Discharge Instructions * Attachments The following attachments cannot be sent through Care Everywhere. * Sinusitis (Arabic) documented in this encounter Assessments Diagnosis Acute non-recurrent frontal sinusitis- Primary Reason for Referral Specialty Diagnoses / Procedures Referred By Ariel whelan Referred To Contact Diagnoses Rotator cuff tear arthropathy of left shoulder Procedures REFER TO PACC - PRE ANESTHESIA CONSULTATION CLINIC OFFICE/OUTPATIENT [facility] 60-[place] [address] [address] [place] [address] Referral ID Status Reason Start Date Expiration Date Visits Requested Visits Authorized [id number] Pending Review PCP Requested Referral 08/29/2023 08/28/2024 1 1 Specialty Diagnoses / Procedures Referred By Ariel whelan Referred To Contact [facility] Diagnoses Closed displaced fracture of acromial process, unspecified laterality, sequela Status post reverse arthroplasty of left shoulder Procedures CONSULT TO [facility] [place] [address] [address] [place] [address] [facility] [address] [address] Referral ID Status Reason Start Date Expiration Date Visits Requested Visits Authorized [id number] Pending Review Auto-Generat ed Referral 3 09/11/2024 1 1 Additional Source Comments INFORMATION SOURCE (unrecogn ized section and content) DATE CREATED AUTHOR 11/14/2018 [facility] DATE CREATED AUTHOR AUTHOR'S ORGANIZ ATION 05/19/2019 [facility] DATE CREATED AUTHOR AUTHOR'S ORGANIZ ATION 05/02/2021 [facility] DATE CREATED AUTHOR AUTHOR'S ORGANIZ ATION 05/24/2022 [facility] DATE CREATED AUTHOR AUTHOR'S ORGANIZ ATION 02/09/2023 [facility] DATE CREATED AUTHOR AUTHOR'S ORGANIZ ATION 02/12/2024 [facility] DATE CREATED AUTHOR AUTHOR'S ORGANIZ ATION 04/28/2024 [facility] DATE CREATED AUTHOR AUTHOR'S ORGANIZ ATION 07/18/2024 Jaya Leo [facility] Reason for Visit (unrecogniz ed section and content) Reason Comments OT Progress Note Specialty Diagnoses / Procedures Referred By Ariel t Referred To Contact Diagnoses 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, 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, left Procedures CONSULT TO [facility] Wolfgang Chou PA-C [address] [place] [address] [facility] [address] [place] [address] Referral ID Status Reason Start Date Expiration Date V isits Requested Visits Authorized [id number] Authorized 09/25/2023 09/24/2024 20 20 Reason Comments Occupational Therapy Reason Comments Dizziness Hypertension Reason Comments New Reason Comments Follow Up Reason Comments Post Op Follow Up Reason Comments Follow Up For Left shoulder pain Reason Comments Radio Gen A21 Specialty Diagnoses / Procedures Referred By Ariel whelan Referred To Contact XR IMAGING Diagnoses S/P reverse total shoulder arthroplasty, left Procedures XR SHOULDER GENERAL 3V OR MORE AP/TRUE AP/OTHER LEFT RADEX SHOULDER COMPLETE MINIMUM 2 VIEWS Wolfgang Chou PA-C [address] [place] [address] [facility] [address] [address] Referral ID Status Reason Start Date Expiration Date V isits Requested Visits Authorized [id number] Closed Auto-Generate d Referral 01/10/2024 02/08/2025 1 1 Reason Comments Pain No pain Little Sibley RN - 04/06/2019 12:11 PM Little Leo RN - 04/06/2019 11:57 AM Little Leo RN - 04/06/2019 11:52 AM Shell Camejo MD - 04/06/2019 11:35 AM EDT ED Notes (unrecognized secti on and content) Discharge teaching is done with this patient and she voices understanding of this. Encouraged her to follow up if the symptoms do not improve. Dr Hawkins is at the bedside to speak to this patient regarding her test results. Patient is resting comfortably. Call light within reach. Patient updated on continued plan of care. Associated Order(s): EKG 12-lead ED PROVIDER NOTE [facility] EM[facility]GENCY [facility]PARTMENT NAME: Qing Fischer AGE: 73 y.o. : 1945 VISIT DATE: 04/06/2019 CSN: [id number] PCP: Nona Mcknight MD Chief Complaint Patient presents with Dizziness Hypertension She did not feel right at 7:30 AM soon after she got up this morning. She felt dizzy. Her mouth was dry. She had a little numbness around her mouth as well. (She is not experiencing any of these things now.) She was concerned that her blood pressure might be elevated. She called for the squad. Her blood pressure was indeed found to be elevated. Then she mentions that, in recent days, she has had pain in both ears as well as sinus congestion. She has had no visual disturbance. She is here attending a convention. She is camping. History provided by: Patient No past medical history on file. No past surgical history on file. No family history on file. Social History Socioeconomic History Marital status: Spouse name: Not on file Number of children: Not on file Years of education: Not on file Highest education level: Not on file Occupational History Not on file Social Needs Financial resource strain: Not on file Food insecurity: Worry: Not on file Inability: Not on file Transportation needs: Medical: Not on file Non-medical: Not on file Tobacco Use Smoking status: Not on file Substance and Sexual Activity Alcohol use: Not on file Drug use: Not on file Sexual activity: Not on file Lifestyle Physical activity: Days per week: Not on file Minutes per session: Not on file Stress: Not on file Relationships Social connections: Talks on phone: Not on file Gets together: Not on file Attends moravian service: Not on file Active member of club or organization: Not on file Attends meetings of clubs or organizations: Not on file Relationship status: Not on file Other Topics Concern Not on file Social History Narrative Not on file No current outpatient medications on file prior to encounter. Allergies Allergen Reactions Amoxicillin Rash Codeine hot Review of Systems HENT: Positive for congestion. Neurological: Positive for dizziness. All other systems reviewed and are negative. Patient Vitals for the past 24 hrs: BP Temp Temp src Pulse Resp SpO2 Weight 04/06/19 1152 (!) 154/87 72 18 98 % 04/06/19 1051 (!) 158/86 04/06/19 1045 (!) 177/95 97 % 04/06/19 1043 (!) 191/110 99 F (37.2 C) Temporal (!) 102 18 97 % 65.9 kg (145 lb 3.2 oz) Physical Exam Constitutional: She is oriented to person, place, and time. She appears well-nourished. She appears distressed. HENT: Mouth/Throat: Oropharynx is clear and moist. Both tympanic membranes and both external auditory canals are clear. Nares are both little swollen. She is tender above both orbits, but not below them. Eyes: Conjunctivae and EOM are normal. Pupils are equal, round, and reactive to light. Right eye exhibits no discharge. Left eye exhibits no discharge. She does not have nystagmus. Movement of her head does not induce vertigo. Neck: Neck supple. Cardiovascular: Normal rate and regular rhythm. Pulmonary/Chest: Effort normal and breath sounds normal. No respiratory distress. Abdominal: Soft. Bowel sounds are normal. There is no tenderness. Musculoskeletal: She exhibits no edema. Neurological: She is alert and oriented to person, place, and time. No cranial nerve deficit. Skin: Skin is warm and dry. No rash noted. Laboratory & Radiographic Imaging (if done): Results for orders placed or performed during the hospital encounter of 04/06/19 BMP Result Value Ref Range Sodium 140 135 - 145 mmol/L Potassium 3.8 3.5 - 5.1 mmol/L Chloride 110 (H) 98 - 108 mmol/L Bicarbonate 24 21 - 32 mmol/L Anion Gap 10 10 - 20 mmol/L Glucose 117 (H) 65 - 99 mg/dL BUN 16 8 - 25 mg/dL Creatinine 0.73 0.60 - 1.20 mg/dL eGFR 81 >=60 mL/min/1.73 m2 BUN/Creatinine Ratio 21.9 (H) 10.0 - 20.0 Calcium 9.2 8.4 - 10.2 mg/dL CBC Auto Differential Result Value Ref Range WBC 6.96 4.50 - 11.00 K/mcL RBC 5.02 4.00 - 5.20 M/mcL Hemoglobin 13.7 12.0 - 16.0 g/dL Hematocrit 42.1 36.0 - 46.0 % MCV 83.9 80.0 - 100.0 fL MCH 27.3 26.0 - 34.0 pg MCHC 32.5 31.0 - 37.0 g/dL Platelets 273 150 - 400 K/mcL RDW - CV 15.8 (H) 11.6 - 14.8 % MPV 8.2 (L) 9.0 - 15.5 fL Neutrophils 69.2 % Lymphocytes 17.8 % Monocytes 11.8 % Eosinophils 0.6 % Basophils 0.3 % IG Percent 0.30 % Neutrophils Abs 4.82 1.70 - 7.00 K/mcL Lymphocytes Abs 1.24 0.90 - 4.00 K/mcL Monocytes Abs 0.82 0.30 - 0.90 K/mcL Eosinophils Abs 0.04 0.00 - 0.50 K/mcL Basophils Abs 0.02 0.00 - 0.30 K/mcL IG Absolute 0.02 0.00 - 0.30 K/mcL Nucleated RBC 0.0 % Nucleated RBC Abs 0.00 0.00 - 0.00 K/mcL No orders to display EKG 12-lead Date/Time: 04/06/2019 11:35 AM Performed by: Shell Hawkins MD Authorized by: Shell Hawkins MD Interpreted by ED attending physician Rhythm: sinus rhythm BPM: 80 Conduction: complete RBBB ST Segments: ST segments normal T Waves: T waves normal Other: no other findings MDM The patient has been informed that they may have pre-hypertension or hypertension based on a blood pressure reading in the Emergency Department. I recommend that the patient call the primary care provider listed on their discharge instructions or a physician of their choice as soon as possible to arrange follow-up in the next 4 weeks for further evaluation of possible pre-hypertension or hypertension. . At 11:55 AM she is feeling fine. Her blood pressure has come down to 154/87. Clinical Impression: SNOMED CT(R) 1. Acute non-recurrent frontal sinusitis ACUTE FRONTAL SINUSITIS ED Disposition ED Disposition Condition Comment Discharge Stable Qing Fischer discharged to home/self care in stable condition. Follow-up Information 1. Nona Mcknight MD. Specialty: Family Medicine [address] [address] Contact information for after-discharge care Follow-up information has not been specified. New Prescriptions azithromycin (ZITHROMAX) 250 MG tablet Two at first, then one daily . Shell Hawkins MD 04/06/19 1208 Lab is at the bedside to draw labs at this time. Dr Hawkins is at the bedside to evaluate this patient. This patient states that she woke up ay 0730 feeling dizzy, dry mouth, and slight numbness around her mouth. States that she was suspecting that her blood pressure was elevated but she does not have a history of it. States that she thinks that she may have inner ear problems because her ears have been sore for the past few weeks and she also has had sinus pain and pressure. Patient states that she decided to come to the ED today after an EMT checked her blood pressure and it was 192/100 and she just did not feel right. States that she took two Ibuprofen tablets at 1000. States that she is currently here in [facility] for the past four days. documented in this encounter Source Comments (unrecognize d section and content) In the event this informatio n is protected by the Federal Confidentiality of Alcohol and Drug Abuse Patient Records regulations: The Federal rules restrict any use of the information to criminally investigate or prosecute any alcohol or drug abuse patient.[facility] the event this information is protected by the Federal Confidentiality of Alcohol and Drug Abuse Patient Records regulations: The Federal rules restrict any use of the information to criminally investigate or prosecute any alcohol or drug abuse patient.[facility] Center[facility] the event this information is protected by the Federal Confidentiality of Alcohol and Drug Abuse Patient Records regulations: The Federal rules restrict any use of the information to criminally investigate or prosecute any alcohol or drug abuse patient.[facility] the event this information is protected by the Federal Confidentiality of Alcohol and Drug Abuse Patient Records regulations: The Federal rules restrict any use of the information to criminally investigate or prosecute any alcohol or drug abuse patient.[facility] the event this information is protected by the Federal Confidentiality of Alcohol and Drug Abuse Patient Records regulations: The Federal rules restrict any use of the information to criminally investigate or prosecute any alcohol or drug abuse patient.[facility] the event this information is protected by the Federal Confidentiality of Alcohol and Drug Abuse Patient Records regulations: The Federal rules restrict any use of the information to criminally investigate or prosecute any alcohol or drug abuse patient.[facility] the event this information is protected by the Federal Confidentiality of Alcohol and Drug Abuse Patient Records regulations: The Federal rules restrict any use of the information to criminally investigate or prosecute any alcohol or drug abuse patient.[facility] Center[facility] the event this information is protected by the Federal Confidentiality of Alcohol and Drug Abuse Patient Records regulations: The Federal rules restrict any use of the information to criminally investigate or prosecute any alcohol or drug abuse patient.[facility] the event this information is protected by the Federal Confidentiality of Alcohol and Drug Abuse Patient Records regulations: The Federal rules restrict any use of the information to criminally investigate or prosecute any alcohol or drug abuse patient.[facility] Center[facility] the event this information is protected by the Federal Confidentiality of Alcohol and Drug Abuse Patient Records regulations: The Federal rules restrict any use of the information to criminally investigate or prosecute any alcohol or drug abuse patient.[facility] Center[facility] the event this information is protected by the Federal Confidentiality of Alcohol and Drug Abuse Patient Records regulations: The Federal rules restrict any use of the information to criminally investigate or prosecute any alcohol or drug abuse patient.[facility] Center[facility] the event this information is protected by the Federal Confidentiality of Alcohol and Drug Abuse Patient Records regulations: The Federal rules restrict any use of the information to criminally investigate or prosecute any alcohol or drug abuse patient.[facility] CenterIn the event this information is protected by the Federal Confidentiality of Alcohol and Drug Abuse Patient Records regulations: The Federal rules restrict any use of the information to criminally investigate or prosecute any alcohol or drug abuse patient.[facility] CenterIn the event this information is protected by the Federal Confidentiality of Alcohol and Drug Abuse Patient Records regulations: The Federal rules restrict any use of the information to criminally investigate or prosecute any alcohol or drug abuse patient.[facility] CenterIn the event this information is protected by the Federal Confidentiality of Alcohol and Drug Abuse Patient Records regulations: The Federal rules restrict any use of the information to criminally investigate or prosecute any alcohol or drug abuse patient.[facility] CenterIn the event this information is protected by the Federal Confidentiality of Alcohol and Drug Abuse Patient Records regulations: The Federal rules restrict any use of the information to criminally investigate or prosecute any alcohol or drug abuse patient.[facility] CenterIn the event this information is protected by the Federal Confidentiality of Alcohol and Drug Abuse Patient Records regulations: The Federal rules restrict any use of the information to criminally investigate or prosecute any alcohol or drug abuse patient.[facility] Care Teams (unrecognized sec tion and content) Personnel Name: Nona Mcknight MD Address: Address: [address] [place] [address] Marketing Planner Relationship Specialty Start Date End Date Nona Mcknight MD [address] [place], [place] [phone] PCP - General 12/11/07 Marketing Planner Relationship Specialty Start Date End Date Nona Mcknight MD [address] [place], [place] [phone] PCP - General 12/11/07 Marketing Planner Relationship Specialty Start Date End Date Nona Mcknight MD [address] [place], [place] [phone] PCP - General 12/11/07 Marketing Planner Relationship Specialty Start Date End Date Nona Mcknight MD [address] [place], [place] [phone] PCP - General 12/11/07 Marketing Planner Relationship Specialty Start Date End Date Nona Mcknight MD [address] [place], [place] [phone] PCP - General 12/11/07 Marketing Planner Relationship Specialty Start Date End Date Nona Mcknight MD [address] [phone] PCP - General 12/11/07 Marketing Planner Relationship Specialty Start Date End Date Nona Mcknight MD [address] [phone] PCP - General 12/11/07 Marketing Planner Relationship Specialty Start Date End Date Nona Mcknight MD [address] [id number] PCP - General 12/11/07 Marketing Planner Relationship Specialty Start Date End Date Nona Mcknight MD [address] [id number] PCP - General 12/11/07 Marketing Planner Relationship Specialty Start Date End Date Nona Mcknight MD [address] [id number] PCP - General 12/11/07 Marketing Planner Relationship Specialty Start Date End Date Nona Mcknight MD [address] [id number] PCP - General 12/11/07 Marketing Planner Relationship Specialty Start Date End Date Nona Mcknight MD [address] [place] [address] PCP - General 12/11/07 Marketing Planner Relationship Specialty Start Date End Date Nona Mcknight MD [address] [place] [address] PCP - General 12/11/07 Marketing Planner Relationship Specialty Start Date End Date Nona Mcknight MD [address] [place] [address] PCP - General 12/11/07 Marketing Planner Relationship Specialty Start Date End Date Nona Mcknight MD [address] [place] [address] PCP - General 12/11/07 FOR RECORDS PERTAINING TO PATIENTS WHO ARE OR HAVE BEEN ENROLLED IN A CHEMICAL DEPENDENCY/SUBSTANCEABUSE PROGRAM, SOME INFORMATION MAY BE OMITTED. This clinical summary was aggregated from multiple sources. Caution should be exercised in using it in the provision of clinical care. This summary normalizes information from multiple sources, and as a consequence, information in this document may materially change the coding, format and clinical context of patient data. In addition, data may be omitted in some cases. CLINICAL DECISIONS SHOULD BE BASED ON THE PRIMARY CLINICAL RECORDS. [facility] [employer] [facility]. provides no warranty or guarantee of the accuracy or completeness of information in this document.
[2024-07-24 16:24] LABS: Free T3 3.38 pg/mL (2.18-3.98); Thyroid Stimulating Hormone 0.735 uIU/mL (0.358-3.740)
== END 2024-07-24 15:19 | disposition home or self-care (01) ==
LOC: LAB 15:22
PROVIDERS: PCP Family Medicine; Visit Provider Family Medicine
DX: R53.83 Other fatigue (principal)
CPT/HCPCS: 36415; 84436; 84443; 84481

== ENCOUNTER 2025-06-04 12:23 | Outpatient (OUT) | payer MEDICARE, SELFPAY ==
--- OUTSIDE RECORDS SUMMARY | 2025-06-04 12:30 | XMS_ITS | CCD ---
Author Organization [facility] Team Providers Care Fundraising Officer Name Role Phone RASHEED TOWNSENDORY Admitting Unavailable CARY, LAURIE Attending Unavailable [...] ABIODUN Admitting Unavailable CIARA GONZALEZ Referring Unavailable DE Procedure Practitioner Unavailab le EBRAHEIM, ABIODUN Surgeon Unavailable SHELL HAWKINS Attending Unavailable HOY, NONA Primary Care Unavailable Petry, Nona Primary Care Provider Nona Mcknight Primary Care Provider DR NONA SHAH Primary Care Unavailable PETRY [...] Unavailable Nona Mcknight MD Primary Care Provider [phone] Nona Mcknight MD Primary Care Provider [phone] TONY COMBS Admitting Unavailable TONY COMBS Attending Unavailable HOY, NONA M Primary Care Unavailable JOSÉ ANTONIOWOLFGANG GOLDMAN Attending Unavailable HOY, NONA M Primary Care Unavailable OTNY COMBS Attending Unavailable HOY, NONA M Primary [...] Unavailable Nona Mcknight MD Primary Care Provider [phone] HOY, NONA M Primary Care Unavailable WOLFGANG [...] HOY, NONA M Primary Care Unavailable WOLFGANG CHUO Referring Unavailable TONY COMBS Referring Unavailable HOY, NONA M Primary Care Unavailable KRISTI VASQUEZ Referring Unavailable HOY, NONA M Primary Care Unavailable HOY, NONA M Primary Care Unavailable WOLFGANG CHOU Attending Unavailable TONY COMBS Attending Unavailable HOY, NONA M Primary Care Unavailable HOY, NONA M Primary Care Unavailable WOLFGANG CHOU Referring Unavailable ROMINA DARNELL Attending Unavailable HOY, NONA M Primary Care Unavailable JOSÉ ANTNOIO, WOLFGANG Referring Unavailable HALLSOPHIE ROMINA Attending Unavailable Hoy, Nona Primary Care Physician Nilam Garnica Attending Unavailable Lonny VASQUEZ Attending Unavailable Allergies Allergy Classification Reported Allergen(s) Allergy Type Date of Onset Reaction(s) Facility (5 sources) Amoxicillin; Translations: [Unknown] Drug Allergy 4 [facility] Repository (4 sources) Codeine; Translations: [CODEINE] Drug Allergy 8 [facility] Repository (1 source) Penicillins (Antibiotic) Drug allergy (disorder) 8 [facility] Repository (2 sources) Sulfonamides (Antibiotic) Drug allergy (disorder) 5 [facility] Repository (16 sources) Amoxicillin Drug Allergy 9 Rash [facility] (20 sources) Codeine; Translations: [codeine] Drug Allergy 8 Mental Status Change, Near syncope (disorder) [facility] (5 sources) Leucine; Translations: [NICKEL] Drug Allergy 0 [facility] Repository (1 source) Penicillins Drug allergy (disorder) 4 [facility] Repository (1 source) Tylenol-Codeine #3 Drug allergy (disorder) 0 [facility] Repository (14 sources) nickel Drug Allergy 3 Rash [facility] (2 sources) Sulfonamides (Antibiotic); Translations: [sulfa drugs] Propensity to adverse reactions to drug [facility] Medications Current Medications Medication Drug Class(es) Dates [...] (12 sources) take 2 tablets by mo ut once daily CALCIUM CITRATE ORAL Take 2 [...] Ordered Start: 10-04-2023 take 1 tablet by [facility] once daily at bedtime rOPINIRole (REQUIP) 0.5 [...] on above: Take 1 capsule by mo [facility] three times a day for 7 days. [...] tablet by luis e th every afternoon. ubidecarenone 10 mg oral capsule [...] Overview: Added automatically from request for surgery [id number] Spondylosis; intervertebral disc disorders; other back problems [...] are aortic calcifications. IMPRESSION: NO SIGNIFICANT CHANGE. Watchguard: WILLIAM Transcribe Date/Time: Apr 25 2024 11:12P Dictated by : ADITI FERNANDEZ MD This examination was interpreted and the report reviewed and electronically signed by: ADITI FERNANDEZ MD on Apr 25 2024 11:16PM EST [id number] Normal [facility] XR Shoulder - left 3 Viewson 04-25-2024 IMPRESSION: NO SIGNIFICANT CHANGE. Watchguard: WILLIAM Transcribe Date/Time: Apr 25 2024 11:12P [...] are aortic calcifications. DIVISION OF RADIOLOGY Provider, [facility] Carissa [facility] - 04/25/2024 * * *Final Report* [...] aortic calcifications. IMPRESSION IMPRESSION: NO SIGNIFICANT CHANGE. Watchguard: PSCMatheus Transcribe Date/Time: Apr 25 2024 11:12P Dictated by : ADITI FERNANDEZ MD This examination was interpreted and the report reviewed and electronically signed by: ADITI FERNANDEZ MD on Apr 25 2024 11:16PM EST [facility] Radiology Study observation (narrative) [facility] XR Shoulder - left 3 ViewsOr dered By: Ccf Provider on 04-25-2024 [facility] CNOVon 01-11-2024 CNOV Office Visit (ORTHMN ) QING FISCHER ([id number]) 1945 F Date Time Provider Department 01/11/24 1:40 PM WOLFGANG CHOU ORTHMN During your visit today, we recorded the following information about you: Weight Height 60.8 kg 1.524 m Wolfgang Chou PA-C 01/11/2024 3:50 PM Signed Patient Name: QING Sutton [facility] No: [id number] Date of Service: January 11, 2024 [facility] Patient returns for follow up [...] sooner. This note was partially generated using [employer] 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 Follow-up and Disposition History for Encounter Date Provider Department Center 01/11/2024 [id number], JACOB [facility] Encounter Status:Closed by WOLFGANG CHOU on 01/11/[address] [facility] XR SHLDR >/=3V AP/JULIETA AP/OTH R LTon [...] shoulder arthroplasty with no fracture or osteolysis. Watchguard: WILLIAM Transcribe Date/Time: Jan 11 2024 4:15P Dictated by : ERNESTINA WEAVER MD This examination was interpreted and the report reviewed and electronically signed by: ERNESTINA WEAVER MD on Jan 11 2024 4:18PM EST [id number] Normal [facility] XR Shoulder - left 3 Viewson 01-11-2024 [facility] [id number] 12-26-2023 [id number] HNO ID: [id number] Author: ROMINA DARNELL OTR/L Service: ? Author Type: Occupational Therapist Type: [id number] Filed: 12/26/2023 15:55 Note Text: [facility] Occupational Therapy Plan of Care Certification Patient Name: Qing Fischer : 1945 CC #: [id number] Date: 12/26/2023 To: Wolfgang Chou PA-C From Therapist: RAHUL Olsen RE: Patient Certification/ Recertification Your review, approval and electronic signature are required in order to comply with Payor: [facility] [employer] / Plan: [facility] MEDICARE ADVANTAGE HMO / Product Type: [...] shoulder PLAN OF CARE UPDATE: Assessment: Qing Fischer [...] Planned: 2 Planned Treatment Interventions: Therapeutic exercise (83539), Manual therapy (73824), Self-long term management (50711), [facility] For further details regarding this patient refer to the Occupational Therapy electronically documented visit dated 12/26/2023. Provider Attestation I have reviewed the treatment plan for Qing Fischer, CC# [id number] for the period of 12/14/23 -- 01/25/24, established on 12/26/2023. Signature certifies the need for therapy services. Normal [facility] CNTHERAPYon 12-26-2023 CNTHERAPY OT/PT/Speech Visit (ZAHIRA) QING FISCHER ([id number]) 1945 F [place] Date Time Provider Department 12/26/23 2:45 PM ROMINA DARNELL Date Time Provider Department Center 12/26/2023 2:45 PM [id number]-MEFAEIXDROMINA DARNELL Reason for Visit: OT Discharge [750] [...] CAP) - PSEUDOEPHEDRINE 30 MG TAB Normal [facility] CNTHERAPYon 12-19-2023 CNTHERAPY OT/PT/Speech Visit (LOOTR) QING FISCHER ([id number]) 1945 F [place] Date Time Provider Department 12/19/23 2:45 PM ROMINA DARNELL Date Time Provider Department Center 12/19/2023 2:45 PM [id number]-ADCCYDAMROMINA DARNELL Reason for Visit: Occupational Therapy [504] [...] CAP) - PSEUDOEPHEDRINE 30 MG TAB Normal [facility] CNTHERAPYon 12-12-2023 CNTHERAPY OT/PT/Speech Visit (DIONOTRLesley) QING FISCHER ([id number]) 1945 F Date Time Provider Department 12/12/23 2:45 PM ROMINA DARNELL Date Time Provider Department Center 12/12/2023 2:45 PM [id number]-LAZNBCXXROMINA DARNELL Reason for Visit: Occupational Therapy [504] [...] CAP) - PSEUDOEPHEDRINE 30 MG TAB Normal [facility] CNTHERAPYon 12-05-2023 CNTHERAPY OT/PT/Speech Visit (ZAHIRA) QING FISCHER ([id number]) 1945 F [place] Date Time Provider Department 12/05/23 2:45 PM ROMINA DARNELL Date Time Provider Department Center 12/05/2023 2:45 PM [id number]-XSYUHRPCROMINA DARNELL Reason for Visit: Occupational Therapy [504] [...] NERVE GLIDE RADIAL last updated by Romina Darnell OTR/Cristopher on 12/05/2023 3:30 PM Normal [facility] CNTHERAPYon 11-28-2023 CNTHERAPY OT/PT/Speech Visit (ZAHIRA) QING FISCHER ([id number]) 1945 F Date Time Provider Department 11/28/23 2:00 PM ROMINA DARNELL Date Time Provider Department Center 11/28/2023 2:00 PM [id number]-ZVCSZDKDROMINA DARNELL Reason for Visit: Occupational Therapy [504] [...] RN - Fully Assessed Prescriptions as of 11/28/2023 [...] CAP) - PSEUDOEPHEDRINE 30 MG TAB Normal [facility] CNTHERAPYon 11-21-2023 CNTHERAPY OT/PT/Speech Visit (ZAHIRA) QING FISCHER ([id number]) 1945 F Date Time Provider Department 11/21/23 2:45 PM ROMINA DARNELL Date Time Provider Department Center 11/21/2023 2:45 PM [id number]-ROHQFMEDROMINA DARNELL Reason for Visit: OT Progress Note [2349] Primary Visit Diagnosis:Decreased range of motion of [...] CAP) - PSEUDOEPHEDRINE 30 MG TAB Normal [facility] CNTHERAPYon 11-14-2023 CNTHERAPY OT/PT/Speech Visit (LOOTR) AALIYAHQING ([id number]) 1945 F [place] Date Time Provider Department 11/14/23 2:45 PM ROMINA DARNELL Date Time Provider Department Center 11/14/2023 2:45 PM [id number]-WZDROARFROMINA DARNELL Reason for Visit: Occupational Therapy [504] [...] CAP) - PSEUDOEPHEDRINE 30 MG TAB Normal [facility] CNOVon 11-09-2023 CNOV Office Visit (ORTHBE ) QING FISCHER ([id number]) 1945 F Date Time Provider Department 11/09/23 10:15 AM WOLFGANG CHOU During your visit today, we recorded the following information about you: Wolfgang Chou PA-C 11/27/2023 1:57 PM Signed Patient Name: QING Sutotn AALIYAH [facility] No: [id number] Date of Service: November 09, 2023 [facility] ORTHOP[facility] Postoperative patient presents for suture removal [...] symptoms. This note was partially generated using [employer] voice recognition system and as such may [...] GENERAL 3V OR MORE AP/TRUE AP/OTHER LEFT [1709527] Order #: [id number] FUTURE CONSULT TO DANCE COACH [19991003] Order #: [id number]: 1 FUTURE Prescriptions as of 11/27/2023 - [...] Disposition History (more content not included)... Normal [facility] XR SHLDR >/=3V AP/JULIETA AP/OTH R LTon [...] limits. IMPRESSION: 1. Intact left shoulder arthroplasty Watchguard: PSCB Transcribe Date/Time: Nov 09 2023 12:31P Dictated by : MAGDI ELLISON MD This examination was interpreted and the report reviewed and electronically signed by: MAGDI ELLISON MD on Nov 09 2023 12:33PM EST [id number] Normal [facility] XR Shoulder - left 3 Viewson 11-09-2023 [facility] CNTHERAPYon 11-06-2023 CNTHERAPY OT/PT/Speech Visit (ZAHIRA) QING FISCHER ([id number]) 1945 F Date Time Provider Department 11/06/23 2:00 PM ROMINA DARNELL Date Time Provider Department Center 11/06/2023 2:00 PM [id number]-XNFIFXGOROMINA DARNELL Reason for Visit: Occupational Therapy [504] [...] Rash Date Reviewed: 10/30/2023 Reviewed by: Nallely Gaston RN - Fully Assessed Prescriptions as of [...] 1 OF 2) last updated by Romina Darnell OTR/L on 11/06/2023 2:52 PM Normal [facility] BRIEF OP NOTon 10-30-2023 BRIEF OP NOT HNO ID: [id number] Author: TONY COMBS MD Service: Orthopaedic Surgery Author Type: Fellow Type: Brief Op Note Filed: 10/30/2023 08:52 Note Text: Attestation signed by Tony Combs MD at 10/30/2023 8:52 AM Tony Combs MD BRIEF OP NOTE Patient Name: Qing Fischer Log ID: [id number] Surgery Date: 10/30/2023 Pre-Op/Pre-Procedure Diagnosis: Exposed orthopaedic hardware (HCC) [T84.498A] Post-Op/Post-Procedure Diagnosis: Same Surgeon(s) and Care Provider(s): Surgeon(s) and Role: * Tony Combs MD [...] Date: October 30, 2023 Time: 8:32 AM [facility] HISTORY PHYSICALon HISTORY PHYSICAL HNO ID: [id number] Author: TONY COMBS MD Service: Orthopaedic Surgery [...] Peralta MD Resident Physician Orthopaedic Surgery Pager: [phone] Email: Between 5PM to 7AM, or if urgent, please page the orthopaedic on-call resident at: [phone] ([phone]) for [facility] patients [address] for [facility] patients [address]1109 for [facility] patients 42019 for [facility] patients [address]99 for [facility] patients Normal [facility] OPERATIVE NOon 10-30-2023 OPERATIVE NO HNO ID: [id number] Author: TONY COMBS MD Service: Orthopaedic Surgery Author Type: Physician Type: Operative Report Filed: 10/31/2023 12:27 Note Text: [facility] - Operative Report QING FISCHER : 1945 AGE: 78. SEX: F PATIENT TYPE: A HOSP SVC: ORTS LOCATION: [facility] ATTENDING PHYSICIAN: Tony Combs M.D. CSN NUMBER: [id number] DATE OF SURGERY/PROCEDURE: 10/30/2023 INCISION/PROCEDURE START TIME: 08. INCISION CLOSE/PROCEDURE END TIME: 08. PREOPERATIVE DIAGNOSIS: Healed fracture of the scapular [...] shoulder replacement arthroplasty. SURGEON: Tony Combs M.D. LEGAL ADVISER: 1. Dr. Lawrence. 2. Dr. Peralta. SURGERY/PROCEDURE: Removal two k-wires under sterile conditions with local anaesthesia left shoulder ANESTHESIA: Local infiltration anesthesia by surgeon. LOCATION: [place] [address]. 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 Once both removed, the [...] positioning, retraction, a (more content not included)... [facility] SURGICAL PATHOLOGYon CASE REPORT [facility] Comment on above: Order Comment: Speci men Type: DEVICE SPECIMENOrdering Facility: [facility] Address: [address] [place] [address] Result Comment: [facility] Pathology Report Case: [id number] Authorizing Provider: Tony Combs MD Collected: 10/30/2023 08:12 AM Ordering Location: [facility] Received: 10/30/2023 10:14 AM Operating Room Pathologist: Taurus Renae MD, PhD Specimen: HARDWARE, left shoulder-removed hardware k wires Performed By: #### S ####[facility] LABCLIA [id number] [address] OF PK CLINICAL HISTORY [facility] Comment on above: Order Comment: Speci men Type: DEVICE SPECIMENOrdering Facility: [facility] Address: [address] [place] [address] Result Comment: Pre- op diagnosis: Exposed orthopaedic hardware (HCC) [T84.498A] Performed By: #### S ####[facility] LABCLIA [id number] [address] [facility] FINAL DIAGNOSIS [facility] Comment on above: Order Comment: Speci men Type: DEVICE SPECIMENOrdering Facility: [facility] Address: [address] [place] [address] Result Comment: A. L eft shoulder, orthopedic hardware, removal: -K wires (gross diagnosis only). VANESSA/RUI 10/31/23 10:25 AM Performed By: #### S ####[facility] LABCLIA [id number] [address] FINAL PERFORMING LAB [facility] Comment on above: Order Comment: Speci men Type: DEVICE SPECIMENOrdering Facility: [facility] Address: [address] [place] [address] Result Comment: Diag nostic interpretation performed at [facility], [address] [place] [address] CLIA# [id number] Laundry Marker Supervisor: Anthony Bruno M.D. Performed By: #### S ####[facility] LABCLIA [id number] [address] OF PK GROSS DESCRIPTION A. HARDWARE [facility] Comment on above: Order Comment: Speci men Type: DEVICE SPECIMENOrdering Facility: [facility] Address: [address] [place] [address] Result Comment: Rece ived fresh, labeled left shoulder-removed hardware K wires are 2, denton metallic K wires consisting of a straight guilherme with looped end. Fragmentation is not identified. There is no soft tissue present. The specimen is for gross examination only. The specimen is reviewed with Dr. Renae. RUI October 31, 2023 10:24 AM Gross examination performed at [facility], [facility] [place] [address] Performed By: #### S ####[facility] LABCLIA [id number] [address]UNTAS [id number] CNOVon 10-26-2023 CNOV Office Visit (ORTHBE ) QING FISCHER ([id number]) [address] [facility] Date Time Provider Department 10/26/23 9:45 AM TONY COMBS During your visit today, we recorded the following information about you: Tony Combs MD 10/31/2023 1:19 PM Signed Patient Name: QING Sutton [facility] No: [id number] Date of Service: October 24, 2023 [facility] - ORTHOPAEDICS Patient returns for follow up [...] likely Wed - for K wire removal wt local anaesthesia. Meanwhile, she is to remain [...] patient was offered a surgery/procedure at a [facility]. The surgeon/proceduralist and patient have discussed in [...] arthroplasty, lef (more content not included)... Normal [facility] CNOVon 10-24-2023 [facility] QING FISCHER ([id number]) 1945 F Date Time Provider Department 10/24/23 9:30 AM WOLFGANG CHOU [facility] During your visit today, we recorded the following information about you: Wolfgang Chou PA-C 10/26/2023 9:09 AM Signed Patient Name: QING Sutton AALIYAH [facility] No: [id number] Date of Service: October 24, 2023 [facility] Patient returns for follow up approximately 6 weeks status post Left shoulder reverse total Shoulder Arthroplasty, extensive capsular release, biceps tenodesis, open reduction internal fixation of acromion fracture 09/11/[address] Combs. She continues to be pleased with her progress utilizing phase 1 protocols with occupational therapy. Pain is reported as minimal rated 0/10. 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 This note was partially generated using [employer] voice recognition system and as such may [...] shoulder [M75.102, M12.812] Exposed orthopaedic hardware (HCC) [T84.667O] Order(s):XR SHOULDER GENERAL 3V OR MORE AP/TRUE AP/OTHER LEFT [5460510] Order #: [id number] FUTURE cephALEXin (KEFLEX) 500 mg capsuleTake 1 [...] rotator cuff, lef*0 (more content not included)... [facility] XR SHLDR >/=3V AP/JULIETA AP/OTH R LTon [...] acromium. IMPRESSION: Postsurgical changes without interval complication. Watchguard: PSCB Transcribe Date/Time: Oct 25 2023 8:41A Dictated by : CRAIG LAN MD This examination was interpreted and the report reviewed and electronically signed by: CRAIG LAN MD on Oct 25 2023 8:42AM EST [id number] [facility] CNTHERAPYon 10-16-2023 CNTHERAPY OT/PT/Speech Visit (LOOTRM) QING FISCHER ([id number]) 1945 F [place] Date Time Provider Department 10/16/23 2:00 PM ROMINA DARNELL Date Time Provider Department Center 10/16/2023 2:00 PM [id number]-IQIWWKBBRMOINA DARNELL Reason for Visit: OT Progress Note [...] ADELAIDA - Fully Assessed Prescriptions as of 10/16/2023 [...] CAP) - PSEUDOEPHEDRINE 30 MG TAB Normal [facility] CNTHERAPYon 10-12-2023 CNTHERAPY OT/PT/Speech Visit (ZAHIRA) QING FISCHER ([id number]) 1945 F [place] Date Time Provider Department 10/12/23 2:00 PM ROMINA DARNELL Date Time Provider Department Center 10/12/2023 2:00 PM [id number]-YYABQWSKROMINA DARNELL Reason for Visit: Occupational Therapy [504] [...] RN - Fully Assessed Prescriptions as of 10/12/2023 [...] CAP) - PSEUDOEPHEDRINE 30 MG TAB Normal [facility] CNTHERAPYon 10-02-2023 CNTHERAPY OT/PT/Speech Visit (ZAHIRA) QING FISCHER ([id number]) 1945 Kit CRISTINA Date Time Provider Department 10/02/23 11:45 AM ROMINA DARNELL Date Time Provider Department Center 10/02/2023 11:45 AM [id number]-SDHGENJGROMINA DARNELL Reason for Visit: Occupational Therapy [504] [...] ADELAIDA - Fully Assessed Prescriptions as of 10/02/2023 [...] Darnell OTR/Cristopher on 10/02/2023 12:22 PM [address] [facility] CNOVon 09-29-2023 CNOV Office Visit ([facility] ) QING FISCHER ([id number]) 1945 F [place] Date Time Provider Department 09/29/23 10:15 AM WOLFGANG CHOU [facility] During your visit today, we recorded the following information about you: Wolfgang Chou PA-C 10/23/2023 11:33 PM Signed Patient Name: QING Sutton AALIYAH [facility] No: [id number] Date of Service: September 29, 2023 [facility] Patient returns for follow up [...] sooner. This note was partially generated using [employer] voice recognition system and as such may contain grammatical or word errors Wolfgang Chou PA-C September 29, 2023 Allergies As of Date: 09/29/2023 Noted Allergy Reaction CODEINE 12/11/2007 1 - Mental Status Change Comments: Tylenol with codeine. Hot/ flushed. 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 IMPRESSION: No acute findings. Watchguard: PSCMatheus Transcribe Date/Time: Oct 02 2023 4:21P Dictated by : ALISHA DIXON MD This examination was interpreted and the report reviewed and electronically signed by: ALISHA DIXON MD on Oct 02 2023 4:25PM EST [id number] [facility] Formson 09-28-2023 Forms [id number]#1.0 0TIFF [facility] Lab Reportson 09-28-2023 Lab Reports [id number]#1.0 0TIFF [facility] Ambulatory Visit Summaryon 0 09-27-2023 Ambulatory Visit Summary QING FISCHER :1945 Visit Date:09/27/2023 Ambulatory Visit Instructions Your Diagnosis Urge urinary incontinence Incomplete bladder emptying Bladder spasm Tests Performed Urnls Dip Stick Auto w/o Microscopy POC 87284 Your Care Team Attending Physician - Danika [...] Urnls Dip Stick Auto w/o Microscopy POC 93674 (09/27/2023) Bilirubin Urine Dipstick - Negative Blood Urine Dipstick - Negative Glucose Urine Dipstick - Negative Ketones Urine Dipstick - Negative Leukocytes Urine Dipstick - 1+ Small Nitrite Urine Dipstick - Negative Protein Urine Dipstick - Negative Specific [place] Urine Dipstick - 1.010 Urine Appearance Urine [...] you for choosing us for your care. [facility] Ambulatory Visit Summary AALIYAHQING :1945 Visit Date:09/27/2023 Ambulatory Visit Instructions Your Diagnosis Bladder spasm Tests Performed Urnls Dip Stick Auto w/o Microscopy POC 93081 Your Care Team Attending Physician - Danika [...] Urnls Dip Stick Auto w/o Microscopy POC 90819 (09/27/2023) Bilirubin Urine Dipstick - Negative Blood Urine Dipstick - Negative Glucose Urine Dipstick - Negative Ketones Urine Dipstick - Negative Leukocytes Urine Dipstick - 1+ Small Nitrite Urine Dipstick - Negative Protein Urine Dipstick - Negative Specific [place] Urine Dipstick - 1.010 Urine Appearance Urine [...] you for choosing us for your care. [place] [facility] Patient Educationon 09-27-19 Patient Education Obstetrics and [...] health care provider. General instructions ? Take jkif-qck-tnnkmmv and prescription medicines only as told by [...] monitor yo (more content not included)... 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 [...] (N32.89: Other specified disorders of bladder) Ordered: 32871 Measure Post Void residual urine and/or bladder capacity by US- non-imaging Urnls Dip Stick Auto w/o Microscopy POC 92975 Follow-up No qualifying data available Patient Education [...] Protein Urine Dipstick: Negative (09/27/23 13:24:00) Specific [place] Urine Dipstick: 1.010 (09/27/23 13:24:00) Urine Appearance Urine Dipstick: Clear (09/27/23 13:24 (more content not included)... Normal [facility] Comment on above: Result Comment: Elec tronically Signed By: BREONNA Garnica APRN, [place] X\.br\Date and Time Signed: 09/27/23 15:12 EST CNTHERAPYon 09-15-2023 CNTHERAPY OT/PT/Speech Visit (OTLUOP) QING FISCHER ([id number]) 1945 F LV Date Time Provider Department 09/15/23 8:30 AM MILADIS ROBERTSON Date Time Provider Department Center 09/15/2023 8:30 AM [id number] ROBERTSON [facility] Reason for Visit: OT EVAL [748] OT [...] PSEUDOEPHEDRINE 30 MG TAB Letter Text Normal [facility] Basic metabolic 2000 panelon 09-12-2023 Anion gap [Moles/Vol] 7 mmol/L Low - [facility] Comment on above: Order Comment: Speci men Type: BLOOD SPECIMENOrdering Facility: [facility] Address: [address] [place], [place] [address] [address] Performed By: #### 2 4321-2 ####CHRISTIAN LABORATORYCLIA [id number] [place] [address] [place] Calcium [Mass/Vol] 8.3 mg/dL Low 8.5-10.[address] [facility] Comment on above: Order Comment: Speci men Type: BLOOD SPECIMENOrdering Facility: [facility] Address: [address] [place] [address] Performed By: #### 2 4321-2 ####CHRISTIAN LABORATORYCLIA [id number] [address] [place] [address] [place] Chloride [Moles/Vol] 107 mmol/L High 97-105 [facility] Comment on above: Order Comment: Speci men Type: BLOOD SPECIMENOrdering Facility: [facility] Address: [address] [place] [address] Performed By: #### 2 4321-2 ####CHRISTIAN LABORATORYCLIA [id number] [place] [id number] [place] CO2 [Moles/Vol] 24 mmol/L Normal 22-30 [facility] Comment on above: Order Comment: Speci men Type: BLOOD SPECIMENOrdering Facility: [facility] Address: [address] [place] [address] Performed By: #### 2 4321-2 ####CHRISTIAN LABORATORYCLIA [id number] [place] [id number] [place] Creatinine [Mass/Vol] 0.75 mg/dL Normal 0.58-0.96 [facility] Comment on above: Order Comment: Speci men Type: BLOOD SPECIMENOrdering Facility: [facility] Address: [address] [place] [address] Performed By: #### 2 4321-2 ####CHRISTIAN LABORATORYCLIA [id number] [address] Creatinine and Glomerular filtration rate.predicted panel (S/P/Bld) 81 mL/min/1.73m??? Normal >=60 [facility] Comment on above: Order Comment: Speci men Type: BLOOD SPECIMENOrdering Facility: [facility] Address: [address] [place] [address] Result Comment: Nuha mated Glomerular Filtration Rate [...] actual GFR. Performed By: #### 2 4321-2 ####CHRISTIAN LABORATORYCLIA [id number] [place] [id number] [place] Glucose [Mass/Vol] 115 mg/dL High 74-[address] [facility] Comment on above: Order Comment: Laura jackson Type: BLOOD SPECIMENOrdering Facility: [facility] Address: [address] [place] [address] Result Comment: The [place] Diabetes Association (ADA) provides guidance for cutoff [...] Standards of Medical Care in Diabetes 2016, [place] [employer]. Diabetes Care. 2016.39(Suppl 1). Performed By: #### 2 4321-2 ####CHRISTIAN LABORATORYCLIA [id number] [place] [id number] [place] Potassium [Moles/Vol] 4.4 mmol/L Normal 3.7-5.1 [facility] Comment on above: Order Comment: Laura jackson Type: BLOOD SPECIMENOrdering Facility: [facility] Address: [address] [place] [address] Performed By: #### 2 4321-2 ####CHRISTIAN LABORATORYCLIA [id number] [place] [id number] [place] Sodium [Moles/Vol] 138 mmol/L Normal 136-[address] [facility] Comment on above: Order Comment: Laura jackson Type: BLOOD SPECIMENOrdering Facility: [facility] Address: [address] [place] [address] Performed By: #### 2 4321-2 ####CHRISTIAN LABORATORYCLIA [id number] [place] [id number] [facility] OF PK Urea nitrogen [Mass/Vol] 18 mg/dL Normal 7- [facility] Comment on above: Order Comment: Speci men Type: BLOOD SPECIMENOrdering Facility: [facility] Address: [address] [place] [address] Performed By: #### 2 4321-2 ####CHRISTIAN LABORATORYCLIA [id number] [address] OF [facility] CASE MGT INIT ASSESon 2022 CASE MGT INIT ASSES HNO ID: [id number] Author: Vivian Davis RN Service: Care Management Author Type: Registered Nurse Type: Care Mgt Initial Assessment Filed: 09/12/2023 3:30 PM Note Text: CARE MANAGEMENT: ASSESSMENT AND DISCHARGE PLAN SERVICE DATE: September 12, 2023 SERVICE TIME: 1310 PCP: Nona Mcknight MD Primary Contact: Extended Emergency Contact Information Primary Emergency Contact: SINA FISCHER Address: [address] [place] [address] Mobile Relation: Spouse Secondary Emergency Contact: Matt Rogers Relation: Son Admission Status: Extended Recovery Insurance Provider: EBONY [facility] Discharge Planning requested by: Per Department Practice Potential Transition Plans Home;Outpatient Therapy Advance Directives Current Advance Directive: Health Care Power of Biomed Tech In Chart: No Current Living Arrangements and Support Lives with: Spouse/significant other Type of Residence: Private Residence (House) Does the patient have to climb stairs at home?: Yes Support: Current Services/Equipment Current Post-Acute Service(s): DME Current DME Type: Cane Discharge Planning Patient Goal(s): Better mobility, Less pain Irvine of Choice Explained: Irvine of Choice Given: No Reason Not Given: [...] Physician Primary Care Physician Name/Phone: Nona Mcknight [phone] Additional Information: Summary of Care Post-Acute Discharge Plan: Patient assessed at this time. She lives with her and he will assist and transport home. She will be staying with the Son locally until tomorrow. Plan is to discharge today when all goals are met. Scripts sent to [facility]. She is scheduled for outpt OT Monday, requested an earlier day. She has no other needs. SIGNATURE: Vivian Davis RN PATIENT NAME: Qing Fischer DATE: September 12, 2023 TIME: 1:14 PM CONTACT #: [phone] Normal [facility] CBC panel Auto (Bld)on 09-12 Erythrocyte distribution width (RBC) [Ratio] 13.9 % Normal 11.5-15.0 [facility] Comment on above: Order Comment: Laura jackson Type: BLOOD SPECIMENOrdering Facility: [facility] Address: [address] [place] [address] Performed By: #### 5 8410-2 ####CHRISTIAN LABORATORYCLIA [id number] [place] [id number] [place] Hematocrit (Bld) [Volume fraction] 27.9 % Low 36.0-46.0 [facility] Comment on above: Order Comment: Laura jackson Type: BLOOD SPECIMENOrdering Facility: [facility] Address: [address] [place] [address] Performed By: #### 5 8410-2 ####CHRISTIAN LABORATORYCLIA [id number] [place] [address] [place] Hemoglobin (Bld) [Mass/Vol] 8.8 g/dL Low 11.5-15.5 [facility] Comment on above: Order Comment: Speci men Type: BLOOD SPECIMENOrdering Facility: [facility] Address: [address] [place] [address] Performed By: #### 5 8410-2 ####CHRISTIAN LABORATORYCLIA [id number] [address] [place] [address] STATES [facility] MCH (RBC) [Entitic mass] 27.9 pg Normal 26.0-34.0 [facility] Comment on above: Order Comment: Speci men Type: BLOOD SPECIMENOrdering Facility: [facility] Address: [address] [place] [address] Performed By: #### 5 8410-2 ####CHRISTIAN LABORATORYCLIA [id number] [address] [place] MCHC (RBC) [Mass/Vol] 31.5 g/dL Normal 30.5-36.0 [facility] Comment on above: Order Comment: Speci men Type: BLOOD SPECIMENOrdering Facility: [facility] Address: [address] [place] [address] Performed By: #### 5 8410-2 ####CHRISTIAN LABORATORYCLIA [id number] [address] [place] MCV (RBC) [Entitic vol] 88.6 fL Normal 80.0-100.0 [facility] Comment on above: Order Comment: Speci men Type: BLOOD SPECIMENOrdering Facility: [facility] Address: [address] [place] [address] Performed By: #### 5 8410-2 ####CHRISTIAN LABORATORYCLIA [id number] [address] [place] Nucleated RBC (Bld) [#/Vol] 10*3/uL Normal <0.01 [facility] Comment on above: Order Comment: Speci men Type: BLOOD SPECIMENOrdering Facility: [facility] Address: [address] [place] [address] Performed By: #### 5 8410-2 ####CHRISTIAN LABORATORYCLIA [id number] [address] [address] [place] Platelet mean volume (Bld) [Entitic vol] 8.6 fL Low 9.0-12.7 [facility] Comment on above: Order Comment: Speci men Type: BLOOD SPECIMENOrdering Facility: [facility] Address: [place] [address] Performed By: #### 5 8410-2 ####CHRISTIAN LABORATORYCLIA [id number] [address] [place], [place] [id number] [place] Platelets (Bld) [#/Vol] 283 10*3/uL Normal 150-400 [facility] Comment on above: Order Comment: Speci men Type: BLOOD SPECIMENOrdering Facility: [facility] Address: [place] [address] Performed By: #### 5 8410-2 ####CHRISTIAN LABORATORYCLIA [id number] [place] [address] [place] RBC (Bld) [#/Vol] 3.15 10*6/uL Low 3.90-5.20 [facility] Comment on above: Order Comment: Speci men Type: BLOOD SPECIMENOrdering Facility: [facility] Address: [place] [address] Performed By: #### 5 8410-2 ####CHRISTIAN LABORATORYCLIA [id number] [place] [address] [place] WBC (Bld) [#/Vol] 10.42 10*3/uL Normal 3.70-11.00 [facility] Comment on above: Order Comment: Speci men Type: BLOOD SPECIMENOrdering Facility: [facility] Address: [place] [address] Performed By: #### 5 8410-2 ####CHRISTIAN LABORATORYCLIA [id number] [place] [id number] [place] CNDSon 09-12-2023 CNDS HNO ID: [id number] Author: Juan Pope MD Service: Orthopaedic Surgery [...] The patient was electively admitted to the [place] on 09/11/2023. Surgery was scheduled and on [...] Center 09/15/2023 8:30 AM Miladis Robertson OTR/Cristopher OTOP [facility] 09/22/2023 10:45 AM Wolfgang Chou PA-C [facility] Discharge Medications: Medication List START taking [...] Your Medications These medications were sent to [facility] [address] [place] [address], [facility] [address] Hours: Monday-Monday, 9a (more content not included)... [facility] CONSULT PROGon 09-12-2023 CONSULT PROG HNO ID: [id number] Author: Albina Arzate MD Service: General Internal [...] meaning may be extrapolated by contextual derivation [facility] THERAPY NTon 09-12-2023 THERAPY NT HNO ID: [id number] Author: Oswaldo Vernon PT Service: Physical Therapy Author Type: Physical Therapist Type: Therapy (PT/OT/Speech/Resp) Filed: 09/12/2023 11:48 AM Note Text: Physical Therapy Evaluation SERVICE DATE: 09/12/2023 SERVICE TIME: 1116 to 1131 ROOM: [place] [address] Recommended Discharge Disposition: Home Recommended Discharge Disposition [...] on feet Interventions Provided: Evaluation $ Evaluation-Low (05778) Billed Units: 1 unit Training AND Education [...] evaluation/treatment. SIGNATURE: (more content not included)... Normal [facility] THERAPY NT HNO ID: [id number] Author: Samantha Jaeger, OT/L Service: Occupational Therapy Author Type: Occupational Therapist Type: Therapy (PT/OT/Speech/Resp) Filed: 09/12/2023 10:10 AM Note Text: Occupational Therapy Evaluation SERVICE DATE: 09/12/2023 SERVICE TIME: 904 to 944 ROOM: [place] [address] Total Joint Replacement Discharge Readiness: Cleared from [...] (ADL), Reduced mobility-other Interventions Provided: Evaluation, Self Shelter Management (68722), Therapeutic Exercise (68855) $ Evaluation - Low (54346) Billed Units: 1 unit Therapeutic Exercise (22932) Treatment Minutes: 10 $ Therapeutic Exercise (61100) Billed Units: 1 unit Self Shelter Management (00158) Treatment Minutes: 15 $ Self Shelter Management (43192) Billed Units: 1 unit Training AND Education Provided in: Adaptive Equipment/DME, Activity Adaptation/Machine Farmworker y Strategies, Bed Mobility, Benefits of In-Hospital Mobility, Discharge Planning, Expected Functional Level, Functional Mobility Involving ADLs, Lower Extremity Dressing, Home Set-up/Modifications, Precautions/Restrictio ns, Positioning, Role of Occupational Therapy, Standing Balance to Improve [place] with ADLs/Self-Care, Transfer - Sit to Stand, Transfer - Bed to Chair, Upper Extremity Bathing, Upper Extremity Dressing, Transfer - Car, Patient Exercise/Therapy Program Support Needs, Exercise Program The Following Therapeutic Skills Were Used: Assessment of Tolerance Including Vitals Response to Activity, Cues for Sequencing/Proper Technique for A (more content not included)... [facility] ANES POSTPROC EVALon 023 ANES POSTPROC EVAL HNO ID: [id number] Author: Sil Sanchez MD Service: Anesthesiology Author Type: Anesthesiologist Type: Anesthesia Postprocedure Evaluation Filed: 09/11/2023 5:59 PM Note Text: POST ANESTHESIA EVALUATION NOTE : 1945 Procedure Summary Date: 09/11/23 Room / Location: OR05 / [facility] OR Anesthesia Start: 1250 Anesthesia Stop: 1711 [...] September 11, 2023 TIME: 5:59 PM CSN: [id number] [facility] ANES PRE-OPon 09-11-2023 ANES PRE-OP HNO ID: [id number] Author: Sil Sanchez MD Service: Anesthesiology Author [...] fracture, bone grafting, possible tendon transfer. Location: [address] Surgeons: Tony Combs MD Estimated body [...] Airway type: ETT NPO Status: adequate Beta Clinton Monitoring Plan Monitoring plan: standard ASA. Post Procedure Analgesic Plan Postoperative analgesic plan: parenteral or oral opioids, multimodal analgesia and peripheral nerve block. Informed Consent Anesthetic risks, benefits, alternatives, personnel and consent discussed: yes. Patient / Responsible Democrat agrees to proceed: yes Patient / Surrogate agrees to blood products: Yes Significant changes in the patient condition since the History and Physical, not otherwise documented in primary service progress note: no. Vitals Value Taken Time BP 127/61 12/18/23 0946 Pulse 86 09/11/23945 Resp 16 09/11/23945 Temp 37.3 ?C (99.1 [...] September 11, 2023 TIME: 10:58 AM CSN: [id number] [facility] BRIEF OP NOTon 09-11-2023 BRIEF OP NOT HNO ID: [id number] Author: Rex Mckeon MD Service: Hand Surgery Author Type: Fellow Type: Brief Op Note Filed: 09/11/2023 5:39 PM Note Text: BRIEF OP NOTE Patient Name: Qing Fischer Log ID: [id number] Surgery Date: 09/11/2023 Pre-Op/Pre-Procedure Diagnosis: Closed displaced fracture of acromial process, unspecified laterality, sequela [S42.123S] Rotator cuff tear arthropathy of left shoulder [M75.102, M12.812] Injury of tendon of long head of biceps, left, initial encounter [S46.102A] Contracture of shoulder, 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 Item Serial No. Manager Search Lot No. LRB No. Used Action TRABECULAR METAL REVERSE PLUS BASE PLATE 15MM Implant [employer] [id number] Left 1 Implanted SCREW NCB ANATOMICAL SHOULDER 4.5MM PROTASUL-64WF 24MM BONE INVERSE REVERSE - [id number] Screw SCREW NCB ANATOMICAL SHOULDER 4.5MM PROTASUL-64WF 24MM BONE INVERSE REVERSE [employer] [id number] Left 1 Wasted SCREW NCB ANATOMICAL SHOULDER 4.5MM PROTASUL-64WF 33MM BONE INVERSE REVERSE - [id number] Screw SCREW NCB ANATOMICAL SHOULDER 4.5MM PROTASUL-64WF 33MM BONE INVERSE REVERSE [employer] [id number] Left 1 Implanted SCREW NCB 4.5MM PROTASUL-64WF 30MM BONE INVERSE REVERSE LOCK STERILE - [id number] Screw SCREW NCB 4.5MM PROTASUL-64WF 30MM BONE INVERSE REVERSE LOCK STERILE [employer] [id number] Left 1 Implanted TRABECULAR METAL REVERSE PLUS SHOULDER HEAD 36MM 0DEG Implant [employer] [id number] Left 1 Implanted WIRE LIZ 1.6MM STAINLESS STEEL 5.5IN FIXATION TROCAR SMOOTH GUIDE - [id number] Wire WIRE LIZ 1.6MM STAINLESS STEEL 5.5IN FIXATION TROCAR SMOOTH GUIDE [employer] [id number] Left 1 Implanted STEM 12MM TRABECULAR METAL TIVANIUM 130MM HUMERAL REVERSE STERILE SHOULDER - [id number] Joint STEM 12MM TRABECULAR METAL TIVANIUM 130MM HUMERAL REVERSE STERILE SHOULDER [employer] [id number] Left 1 Implanted WIRE LIZ 1.6MM STAINLESS STEEL 5.5IN FIXATION TROCAR SMOOTH GUIDE - [id number] Wire WIRE LIZ 1.6MM STAINLESS STEEL 5.5IN FIXATION TROCAR SMOOTH GUIDE [employer] [id number] Left 1 Implanted LINER 36MM 12D 65D TRABECULAR METAL POLYETHYLENE H+6MM SHOULDER REVERSE - [id number] Joint LINER 36MM 12D 65D TRABECULAR METAL POLYETHYLENE H+6MM SHOULDER REVERSE [employer] [id number] Left 1 Implanted CEMENT SIMPLEX P TOBRAMYCIN BONE FULL DOSE RADIOPAQUE PREBLEND STERILE - [id number] Cement / Putty CEMENT SIMPLEX P TOBRAMYCIN BONE FULL DOSE RADIOPAQUE PREBLEND STERILE [facility] [id number] Left 1 Implanted CEMENT SIMPLEX P TOBRAMYCIN BONE FULL DOSE RADIOPAQUE PREBLEND STERILE - [id number] Cement / Putty CEMENT SIMPLEX P TOBRAMYCIN BONE FULL DOSE RADIOPAQUE PREBLEND STERILE [facility] [id number] Left 1 Implanted Estimated Blood Loss: 250mL Drains: None Specimens: left shoulder and acromion Plan: 1) Admission for observation, pain control, and PT 2) Keep dressing clean, dry, and intact until follow-up Signature: Rex Mckeon MD Date: September 11, 2023 Time: 5:39 PM [facility] CONSULTon 09-11-2023 CONSULT HNO ID: [id number] Author: Albina Arzate MD Service: General Internal [...] Rex Mckeon MD 15 mg at 09/11/23 185 traMADol 50 mg tab(s) (ULTRAM) 50 mg [...] (COLACE) 100 mg ORAL BID Archual, La, ACCOUNT CLERK.MULESER polyethylene glycol 3350 17 g packet 17 g ORAL DAILY ArchLa campbell, ACCOUNT CLERK.MULESER ALLERGIES Allergen Reactions Codeine Mental Status Change Tylenol with codeine. Hot/ flushed. Amoxicillin Rash Nickel Rash Family History Problem Relation Age of Onset Hypertension Father Coronary Artery Disease Father Hypertension Sister Coronary Artery Disease Sister [place] in 30s Anesthesia Problems No Family History [...] (pg) Date Value (more content not included)... [facility] NURSING PROGon 09-11-2023 NURSING PROG HNO ID: [id number] Author: Yazmin Heard RN Service: Nursing Author [...] tomorrow and make recommendations. Pt resting comfortably. [facility] OPERATIVE NOon 09-11-2023 OPERATIVE NO HNO ID: [id number] Author: Tony Combs MD Service: Orthopaedic Surgery Author Type: Physician Type: Operative Report Filed: 09/12/2023 9:49 AM Note Text: [facility] - Operative Report QING FISCHER : 1945 AGE: 78. SEX: F PATIENT TYPE: I HOSP SVC: Surgical LOCATION: [facility] ATTENDING PHYSICIAN: Tony Combs M.D. CSN NUMBER: [id number] DATE OF SURGERY/PROCEDURE: 09/11/2023 INCISION/PROCEDURE START TIME: [...] the left shoulder. SURGEON: Tony Combs M.D. LEGAL ADVISER: Dr. Mckeon. SURGERY/PROCEDURE: Revision surgery performed through [...] general anesthesia by the Anesthesia team. LOCATION: [place] [address]. SURGICAL FINDINGS: It should be noted this [...] transitioned medial, these (more content not included)... [facility] SURGICAL PATHOLOGYon 023 CASE REPORT Normal [facility] Comment on above: Order Comment: Speci men Type: SPECIMEN FROM BONEOrdering Facility: [facility] Address: [address] [place] [address] Result Comment: [facility] Pathology Report Case: [id number] Authorizing Provider: Tony Combs MD Collected: 09/11/2023 02:30 PM Ordering Location: [facility] Received: 09/12/2023 02:27 PM Operating Room Pathologist: Magdi Alfredo MD Specimens: A) - HUMERAL HEAD LEFT, bone & tissue left shoulder joint B) - BONE RESECTION, acromium non-union bone left Performed By: #### S ####[facility] LABCLIA [id number] [address] STATES OF PK CLINICAL HISTORY [facility] Comment on above: Order Comment: Speci men Type: SPECIMEN FROM BONEOrdering Facility: [facility] Address: [address] [place] [address] Result Comment: Pre- op diagnosis: Closed displaced fracture of acromial process, unspecified laterality, sequela [S42.123S] Rotator cuff tear arthropathy of left shoulder [M75.102, M12.812] Injury of tendon of long head of biceps, left, initial encounter [S46.102A] Contracture of shoulder, left [M24.512] Performed By: #### S ####[facility] LABCLIA [id number] [address] OF [facility] FINAL DIAGNOSIS [facility] Comment on above: Order Comment: Speci men Type: SPECIMEN FROM BONEOrdering Facility: [facility] Address: [address] [place] [address] Result Comment: A. L eft shoulder, arthroplasty: - Degenerative joint disease. B. 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 Performed By: #### S ####[facility] LABCLIA [id number] [address] OF [facility] FINAL PERFORMING LAB [facility] Comment on above: Order Comment: Speci men Type: SPECIMEN FROM BONEOrdering Facility: [facility] Address: [address] [place] [address] Result Comment: Diag nostic interpretation performed at [facility], [address] [place] [address] CLIA# [id number] Laundry Marker Supervisor: Anthony Bruno M.D. Performed By: #### S ####[facility] LABCLIA [id number] [address] [place] GROSS DESCRIPTION Normal [facility] Comment on above: Order Comment: Speci men Type: SPECIMEN FROM BONEOrdering Facility: [facility] Address: [address] [address] Result Comment: A. H UMERAL HEAD LEFT [...] no areas of induration or nodularity present. Horologist Apprentice sections are submitted as follows: A1 soft tissue A2 articular and nonarticular surfaces following decalcification A3 possible fracture site with hemorrhagic bony cut surfaces B. BONE RESECTION Received in formalin labeled with bone resection, acromion nonunion bone left are multiple irregular fragments of zhou-brown, firm bone with attached soft tissue aggregating to 3.3 x 2.5 x 0.5 cm. Palpation reveals no areas of softening or necrosis present. The specimen is totally submitted in cassette B1 following decalcification. TLA September 12, 2023 5:15 PM Gross examination performed at [facility], [address] [place] [address] Performed By: #### S ####[facility] LABCLIA [id number] [place] [address] [place] XR SHOULDER SPECIFY 1V [...] Satisfactory postoperative appearance of left shoulder arthroplasty. Watchguard: WILLIAM Transcribe Date/Time: Sep 12 2023 8:36A Dictated by : MIRI CHONG MD This examination was interpreted and the report reviewed and electronically signed by: MIRI CHONG MD on Sep 12 2023 8:38AM EST [id number] Normal [facility] Basic metabolic 2000 panelon 09-07-2023 Anion gap [Moles/Vol] 16 mmol/L Normal 9-[address] [facility] Comment on above: Order Comment: Speci men Type: BLOOD SPECIMENOrdering Facility: [facility] Address: [address] [place] [address] Performed By: #### 2 4321-2 ####[facility] LABCLIA [id number] [place] [address] [place] Calcium [Mass/Vol] 9.8 mg/dL Normal 8.5-10.2 [facility] Comment on above: Order Comment: Speci men Type: BLOOD SPECIMENOrdering Facility: [facility] Address: [address] [place] [address] Performed By: #### 2 4321-2 ####[facility] LABCLIA [id number] [place] [address] [place] Chloride [Moles/Vol] 103 mmol/L Normal 97-105 [facility] Comment on above: Order Comment: Speci men Type: BLOOD SPECIMENOrdering Facility: [facility] Address: [address] [place] [address] Performed By: #### 2 4321-2 ####[facility] LABCLIA [id number] [place] [address] [place] CO2 [Moles/Vol] 22 mmol/L Normal 22-[address] [facility] Comment on above: Order Comment: Speci men Type: BLOOD SPECIMENOrdering Facility: [facility] Address: [address] [place] [address] Performed By: #### 2 4321-2 ####[facility] LABCLIA [id number] [place] [address] [place] Creatinine [Mass/Vol] 0.73 mg/dL Normal 0.58-0.[address] [facility] Comment on above: Order Comment: Speci men Type: BLOOD SPECIMENOrdering Facility: [facility] Address: [address] [place] [address] Performed By: #### 2 4321-2 ####[facility] LABIA [id number] [place] [address] [place] Creatinine and Glomerular filtration rate.predicted panel (S/P/Bld) 83 mL/min/1.73m??? Normal >=[address] [facility] Comment on above: Order Comment: Speci men Type: BLOOD SPECIMENOrdering Facility: [facility] Address: [address] [place] [address] Result Comment: Nuha mated Glomerular Filtration Rate [...] actual GFR. Performed By: #### 2 4321-2 ####[facility] LABIA [id number] [place] [address] [place] Glucose [Mass/Vol] 84 mg/dL Normal 74-99 [facility] Comment on above: Order Comment: Speci men Type: BLOOD SPECIMENOrdering Facility: [facility] Address: [address] [place] [address] Result Comment: The [place] [employer] Association (ADA) provides guidance for cutoff [...] Standards of Medical Care in Diabetes 2016, [place] [employer]. Diabetes Care. 2016.39(Suppl 1). Performed By: #### 2 4321-2 ####[facility] LABCLIA [id number] [place] [address] [place] Potassium [Moles/Vol] 4.3 mmol/L Normal 3.7-5.[address] [facility] Comment on above: Order Comment: Speci men Type: BLOOD SPECIMENOrdering Facility: [facility] Address: [address] [place] [address] Performed By: #### 2 1-2 ####[facility] LABIA [id number] [place] [address] [place] Sodium [Moles/Vol] 141 mmol/L Normal 136-144 [facility] Comment on above: Order Comment: Marvi men Type: BLOOD SPECIMENOrdering Facility: [facility] Address: [address] [place] [address] Performed By: #### 2 1-2 ####[facility] LABCLIA [id number] [place] [address] [place] Urea nitrogen [Mass/Vol] 14 mg/dL Normal 7-[address] [facility] Comment on above: Order Comment: Speci men Type: BLOOD SPECIMENOrdering Facility: [facility] Address: [address] [place] [address] Performed By: #### 2 4321-2 ####[facility] LABCLIA [id number] [place] [address] [place] CBC W Auto Differential pane l (Bld)on 09-07-2023 Basophils (Bld) [#/Vol] 0.03 10*3/uL Normal <0.[address] [facility] Comment on above: Order Comment: Speci men Type: BLOOD SPECIMENOrdering Facility: [facility] Address: [address] [place] [address] Performed By: #### 5 7021-8 ####[facility] LABCLIA [id number] [place] [address] [place] Basophils/100 WBC (Bld) 0.4 % Normal [facility] Comment on above: Order Comment: Speci men Type: BLOOD SPECIMENOrdering Facility: [facility] Address: [address] [place] [address] Performed By: #### 5 7021-8 ####[facility] LABCLIA [id number] [place] [address] [place] Differential cell count method Nom (Bld) Auto Normal [facility] Comment on above: Order Comment: Speci men Type: BLOOD SPECIMENOrdering Facility: [facility] Address: [address] [place] [address] Performed By: #### 5 7021-8 ####[facility] LABCLIA [id number] [place] [address] [place] Eosinophils (Bld) [#/Vol] 0.10 10*3/uL Normal <0.[address] [facility] Comment on above: Order Comment: Speci men Type: BLOOD SPECIMENOrdering Facility: [facility] Address: [address] [place] [address] Performed By: #### 5 7021-8 ####[facility] LABCLIA [id number] [place] [address] [place] Eosinophils/100 WBC (Bld) 1.3 % Normal [facility] Comment on above: Order Comment: Speci men Type: BLOOD SPECIMENOrdering Facility: [facility] Address: [address] [place] [address] Performed By: #### 5 7021-8 ####[facility] LABCLIA [id number] [place] [address] [place] Erythrocyte distribution width (RBC) [Ratio] 14.1 % Normal 11.5-15.[address] [facility] Comment on above: Order Comment: Speci men Type: BLOOD SPECIMENOrdering Facility: [facility] Address: [address] [place] [address] Performed By: #### 5 7021-8 ####[facility] LABCLIA [id number] [place] [address] [place] Hematocrit (Bld) [Volume fraction] 41.4 % Normal 36.0-46.[address] [facility] Comment on above: Order Comment: Speci men Type: BLOOD SPECIMENOrdering Facility: [facility] Address: [address] [place] [address] Performed By: #### 5 7021-8 ####[facility] LABIA [id number] [place] [address] [place] Hemoglobin (Bld) [Mass/Vol] 13.2 g/dL Normal 11.5-15.[address] [facility] Comment on above: Order Comment: Speci men Type: BLOOD SPECIMENOrdering Facility: [facility] Address: [address] [place] [address] Performed By: #### 5 7021-8 ####[facility] LABCLIA [id number] [place] [address] [place] Immature granulocytes (Bld) [#/Vol] 10*3/uL Normal <0.[address] [facility] Comment on above: Order Comment: Speci men Type: BLOOD SPECIMENOrdering Facility: [facility] Address: [address] [place] [address] Performed By: #### 5 7021-8 ####[facility] LABIA [id number] [place] [address] [place] Immature granulocytes/100 WBC (Bld) 0.3 % Normal [facility] Comment on above: Order Comment: Speci men Type: BLOOD SPECIMENOrdering Facility: [facility] Address: [address] [place] [address] Performed By: #### 5 7021-8 ####[facility] LABCLIA [id number] [place] [address] [place] Lymphocytes (Bld) [#/Vol] 1.94 10*3/uL Normal 1.00-4.[address] [facility] Comment on above: Order Comment: Speci men Type: BLOOD SPECIMENOrdering Facility: [facility] Address: [address] [place] [address] Performed By: #### 5 7021-8 ####[facility] LABCLIA [id number] [place] [address] [place] Lymphocytes/100 WBC (Bld) 24.4 % Normal [facility] Comment on above: Order Comment: Speci men Type: BLOOD SPECIMENOrdering Facility: [facility] Address: [address] [place] [address] Performed By: #### 5 7021-8 ####[facility] LABCLIA [id number] [place] [address] [place] MCH (RBC) [Entitic mass] 28.6 pg Normal 26.0-34.[address] [facility] Comment on above: Order Comment: Speci men Type: BLOOD SPECIMENOrdering Facility: [facility] Address: [address] [place] [address] Performed By: #### 5 7021-8 ####[facility] LABCLIA [id number] [place] [address] [place] MCHC (RBC) [Mass/Vol] 31.9 g/dL Normal 30.5-36.[address] [facility] Comment on above: Order Comment: Speci men Type: BLOOD SPECIMENOrdering Facility: [facility] Address: [address] [place] [address] Performed By: #### 5 7021-8 ####[facility] LABCLIA [id number] [place] [address] [place] MCV (RBC) [Entitic vol] 89.6 fL Normal 80.0-100.[address] [facility] Comment on above: Order Comment: Speci men Type: BLOOD SPECIMENOrdering Facility: [facility] Address: [address] [place] [address] Performed By: #### 5 7021-8 ####[facility] LABCLIA [id number] [place] [address] [place] Monocytes (Bld) [#/Vol] 0.99 10*3/uL High <0.[address] [facility] Comment on above: Order Comment: Speci men Type: BLOOD SPECIMENOrdering Facility: [facility] Address: [address] [place] [address] Performed By: #### 5 7021-8 ####[facility] LABCLIA [id number] [place] [address] [place] Monocytes/100 WBC (Bld) 12.5 % Normal [facility] Comment on above: Order Comment: Speci men Type: BLOOD SPECIMENOrdering Facility: [facility] Address: [address] [place] [address] Performed By: #### 5 7021-8 ####[facility] LABCLIA [id number] [place] [address] [place] Neutrophils (Bld) [#/Vol] 4.87 10*3/uL Normal 1.45-7.[address] [facility] Comment on above: Order Comment: Speci men Type: BLOOD SPECIMENOrdering Facility: [facility] Address: [address] [place] [address] Performed By: #### 5 7021-8 ####[facility] LABCLIA [id number] [place] [address] [place] Neutrophils/100 WBC (Bld) 61.1 % Normal [facility] Comment on above: Order Comment: Speci men Type: BLOOD SPECIMENOrdering Facility: [facility] Address: [address] [place] [address] Performed By: #### 5 7021-8 ####[facility] LABCLIA [id number] [place] [address] [place] Nucleated RBC (Bld) [#/Vol] 10*3/uL Normal <0.[address] [facility] Comment on above: Order Comment: Speci men Type: BLOOD SPECIMENOrdering Facility: [facility] Address: [address] [place] [address] Performed By: #### 5 7021-8 ####[facility] LABCLIA [id number] [place] [address] [place] Nucleated RBC/100 WBC (Bld) [Ratio] 0.0 /100 WBC Normal [facility] Comment on above: Order Comment: Speci men Type: BLOOD SPECIMENOrdering Facility: [facility] Address: [address] [place] [address] Performed By: #### 5 7021-8 ####[facility] LABCLIA [id number] [place] [address] [place] Platelet mean volume (Bld) [Entitic vol] 9.4 fL Normal 9.0-12.[address] [facility] Comment on above: Order Comment: Speci men Type: BLOOD SPECIMENOrdering Facility: [facility] Address: [address] [place] [address] Performed By: #### 5 7021-8 ####[facility] LABCLIA [id number] [place] [address] [place] Platelets (Bld) [#/Vol] 395 10*3/uL Normal 150-[address] [facility] Comment on above: Order Comment: Speci men Type: BLOOD SPECIMENOrdering Facility: [facility] Address: [address] [place] [address] Performed By: #### 5 7021-8 ####[facility] LABCLIA [id number] [address] [address] [place] RBC (Bld) [#/Vol] 4.62 10*6/uL Normal 3.90-5.20 [facility] Comment on above: Order Comment: Speci men Type: BLOOD SPECIMENOrdering Facility: [facility] Address: [address] [place], [place] [address] Performed By: #### 5 7021-8 ####[facility] LABCLIA [id number] [address] [address] [place] WBC (Bld) [#/Vol] 7.95 10*3/uL Normal 3.70-11.00 [facility] Comment on above: Order Comment: Speci men Type: BLOOD SPECIMENOrdering Facility: [facility] Address: [address] [place], [place] [address] Performed By: #### 5 7021-8 ####[facility] LABCLIA [id number] [place] [id number] [place] [id number] 09-07-2023 ECG01 Ventricular Rate : 9 6 BPM Atrial Rate : 96 BPM P-R Interval : 148 ms QRS Duration : 118 ms Q-T Interval : 390 ms QTC Calculation(Bazett) : 492 ms Calculated P [place] : 24 degrees Calculated R [place] : 59 degrees Calculated T [place] : 12 degrees NORMAL SINUS RHYTHM POSSIBLE LEFT ATRIAL ENLARGEMENT COMPLETE RIGHT BUNDLE BRANCH BLOCK ABNORMAL ECG Confirmed by NAFISA KAHN MD ([id number]) on 09/13/2023 4:18:57 PM NAME : QING FISCHER PID : [id number] : 1945 Gender : Female Race : [...] KRISTI VASQUEZ Acquired by : am, Normal [facility] HISTORY PHYSICALon HISTORY PHYSICAL HNO ID: [id number] Author: Kristi Vasquez APRN.MULESER Service: ? Author Type: Nurse Practitioner Type: [...] Father Hypertension Sister Coronary Artery Disease Sister [place] in 30s Anesthesia Problems No Family History [...] COVID-19 vaccine, age 12+ yr, 2022- season ([employer]) 07/18/2022 Imm Admin: COVID-19 vaccine, age 12+ yr, bivalent ([employer]) 06/24/2021 Imm Admin: COVID-19 original vaccine, age 12+ yr, monovalent ([employer]-BIONTECH - PURPLE TOP) 11/15/2020 Imm Admin: COVID-19 original vaccine, age 12+ yr, monovalent ([employer]-BION[employer] - PURPLE TOP) 10/25/2020 Imm Admin: COVID-19 original vaccine, age 12+ yr, monovalent ([employer]ION[employer] - PURPLE TOP) Only the first 5 history entries have been loaded, but more history exists. REVIEW OF SYSTEMS: PAIN ASSESSMENT: General: No weight loss, malaise or fevers. Neuro: No history of TIA's, stroke, DEPOSIT REFUND CLERK tumor, impaired sensorium, hemiplegia, paraplegia or quadraplegia. No neurological symptoms or problems. Respiratory: No history of current cough or dyspnea, or pneumonia in the past 6 weeks. No history of respiratory/pulmonary symptoms or problems. Cardiovascular: No history of HTN requiring medication, no history of angina, CHF, [place], cardiac surgery or stents. Denies rest pain, [...] Ht 5' (more content not included)... Normal [facility] STAPH AUREUS PCRon S. aureus and MRSA panel MOISES+probe (Nose) Normal Negative [facility] Comment on above: Order Comment: Spectanya jackson Type: SWAB OF INTERNAL NOSEOrdering Facility: [facility] Address: [address] [place] [address] Result Comment: Nega tive for Staphylococcus aureus by PCR. Negative for MRSA by PCR Performed By: #### S APCR ####[facility] LABCLIA [id number] [place] [address] [place] TYPE AND SCREEN,30 DAYon ABO O Normal [facility] Comment on above: Order Comment: Marvi manuel Type: BLOOD SPECIMEN [facility] Address: [address] [place] [address] Performed By: #### T SCR30 #### [facility]LOOD B[facility] CLIA [id number] [facility] [place] [address] [place] HISTORICAL AB SCR STATUS Negative Normal [facility] Comment on above: Order Comment: Speci men Type: BLOOD SPECIMEN [facility] Address: [address] [place] [address] Performed By: #### T SCR30 #### [facility] CLIA [id number] [address] [place] [address] [place] Rh Nom (Bld) Positive Normal [facility] Comment on above: Order Comment: Speci men Type: BLOOD SPECIMEN [facility] Address: [address] [place] [address] Performed By: #### T SCR30 #### [facility] MAIN BLOOD BANK [facility] [id number] [facility] [id number] [address] [place] CNOVon 08-29-2023 CNOV Office Visit (ORTL ) QING FISCHER ([id number]) 1945 F Date Time Provider Department 08/29/23 1:15 PM TONY COMBS [facility] During your visit today, we recorded the following information about you: Tony Combs MD 08/30/2023 2:03 PM Signed [facility] NOTE DEPARTMENT OF ORTHOPAEDICS Evaluation with Tony Combs Jr., M.D. Patient Name: QING FISCHER [facility] No: [id number] : 1945 Qing Fischer is a pleasant [...] patient was offered a surgery/procedure at a [facility] facility. The surgeon/proceduralist and patient have discussed [...] left, initial encou (more content not included)... [facility] CT 3D POST PROCESSINGon 11-0 CT 3D [...] thoracic aorta. Mild coronary artery atherosclerotic calcification. Dolly Operator images demonstrate reverse RIGHT total shoulder arthroplasty. IMPRESSION: Severe LEFT rotator cuff arthropathy. Watchguard: PSCB Transcribe Date/Time: Aug 03 2023 2:24P Dictated by : SERG LÓPEZ DO This examination was interpreted and the report reviewed and electronically signed by: SERG LÓPEZ DO on Aug 03 2023 2:46PM EST [id number] [facility] CT SHOULDER WO IVCON LTon CT SHOULDER [...] thoracic aorta. Mild coronary artery atherosclerotic calcification. Dolly Operator images demonstrate reverse RIGHT total shoulder arthroplasty. IMPRESSION: Severe LEFT rotator cuff arthropathy. Watchguard: WILLIAM Transcribe Date/Time: Aug 03 2023 2:24P Dictated by : SERG LÓPEZ DO This examination was interpreted and the report reviewed and electronically signed by: SERG LÓPEZ DO on Aug 03 2023 2:46PM EST [id number] [facility] QING FISCHER ([id number]) 1945 F Date Time Provider Department 07/18/23 11:45 AM TONY COMBS [facility] During your visit today, we recorded the following information about you: Weight Height 62.1 kg 1.524 m Tony Combs MD 07/22/2023 10:43 AM Signed [facility] NOTE DEPARTMENT OF ORTHOPAEDICS Evaluation with Tony Combs Jr., M.D. Patient Name: QING Lesley FISCHER Clinic No: [id number] : 1945 This is an active 80 [...] Artery Disease Father Coronary Artery Disease Sister [place] in 30s PAST SURGICAL HISTORY Procedure Laterality [...] - Fully Assessed Reason for Visit: New [[id number]] Primary Visit Diagnosis:Rotator cuff tear arthropathy of left shoulder [M75.102, M12.812] Other Visit Diagnoses:Chronic right shoulder pain [M25.511, G89.29] Nontraumatic complete tear of rotator cuff, left [M75.122] Injury of tendon of long head of biceps, left, initial encounter [S46.102A] Closed displaced fracture of acromial process, unspecified laterality, sequela [S42.123S] Order(s):CT SHOULDER WO IVCON LEFT [[id number]] Order #: [id number] CT 3D POST PROCESSING [[id number]] Order #: [id number] FUTURE REFER TO P[facility] - PRE ANESTHESIA CONSULTATION CLINIC [[id number]] Order #: [id number]: 1 FUTURE XR SHOULDER GENERAL 3V OR MORE AP/TRUE AP/OTHER RIGHT [[id number]] Order #: [id number] FUTURE Prescriptions as of 07/22/2023 - estradiol(VAGIFEM 25 MCG VAGINAL TAB) Insert one(1) tablet vaginally twice weekly. - IBUPROFEN 600 MG TAB 1 Tab ORAL EVERY 6 HOURS NEEDED - multivitamins w-minerals/lut (more content not included)... [facility] XR SHLDR >/=3V AP/JULIETA AP/OTH R LTon [...] HISTORY: pt sts chronic shoulder pain (accession [id number]), RT SHOULDER PAIN/REPLACED 14 MONTHS AGO (accession [id number]) CLINICAL INFORMATION ( PROVIDED BY ORDERING CLINICIAN) [...] with associated acromial fragmentation from advanced remodeling. Watchguard: WILLIAM Transcribe Date/Time: Jul 20 2023 10:15P Dictated by : MARYANN SUAREZ MD This examination was interpreted and the report reviewed and electronically signed by: MARYANN SUAREZ MD on Jul 20 2023 10:17PM EST [id number] [facility] XR SHLDR >/=3V AP/JULIETA AP/OTH R RTon [...] HISTORY: pt sts chronic shoulder pain (accession [id number]), RT SHOULDER PAIN/REPLACED 14 MONTHS AGO (accession [id number]) CLINICAL INFORMATION ( PROVIDED BY ORDERING CLINICIAN) [...] with associated acromial fragmentation from advanced remodeling. Watchguard: WILLIAM Transcribe Date/Time: Jul 20 2023 10:15P Dictated by : MARYANN SUAREZ MD This examination was interpreted and the report reviewed and electronically signed by: MARYANN SUAREZ MD on Jul 20 2023 10:17PM EST [id number] Normal [facility] XR SHOULDER GENERAL 3V OR MO RE AP/TRUE AP/OTHER RIGHTon 07-18-2023 [facility] INSULINon 02-08-2023 Insulin 17.0 uIU/mL Normal 2.6-24.9 [facility] Comment on above: Performed By: #### C BC #### [facility] [address] [place] [address] [address] Kashif Martinez OCC BLD IMMUNO SCREENon 01-23 OCCULT BLOOD Negative Normal NEGATIVE [facility] Comment on above: Performed By: #### O BSCRN #### [facility] [address] [place] [address] [address] Kashif Martinez UA RANDOM W/MICROSCOPICon BACTERIA TRACE Abnormal NONE SEEN [facility] Comment on above: Performed By: #### U AMIC #### [facility] [address] [place] [address] [address] Kashif Martinez Bilirubin Ql (U) Negative Normal NEGATIVE [facility] [facility] Comment on above: Performed By: #### U AMIC #### [facility] [address] [address] [address] Kashif Martinez CAST NONE SEEN Normal NONE SEEN [facility] Comment on above: Performed By: #### U AMIC #### [facility] [address] [address] [address] Kashif Martinez Clarity (U) CLEAR Normal CLEAR [facility] Comment on above: Performed By: #### U AMIC #### [facility] [address] [address] [address] Kashif Martinez Color (U) LT. YELLOW Normal YELLOW [facility] Comment on above: Performed By: #### U AMIC #### [facility] [address] [address] [address] Kashif Martinez Crystals LM Nom (Urine sed) NONE SEEN Normal NONE SEEN [facility] Comment on above: Performed By: #### U AMIC #### [facility] [address] [address] [address] Kashif Martinez Epithelial cells LM Ql (Urine sed) FEW Abnormal NONE SEEN /RARE [facility] Comment on above: Performed By: #### U AMIC #### [facility] [address] [place] [address] Dr. Kashif Martinez Glucose Ql (U) Negative Normal NEGATIVE The [facility] Comment on above: Performed By: #### U AMIC #### [facility] [address] [address] [address] Kashif Martinez Hemoglobin Ql (U) Negative Normal NEGATIVE The [facility] Comment on above: Performed By: #### U AMIC #### [facility] [address] [place] [address] Dr. Kashif Martinez Ketones Ql (U) Negative Normal NEGATIVE The [facility] Comment on above: Performed By: #### U AMIC #### [facility] [address] [place] [address] Dr. Kashif Martinez LEUKOCYTES TRACE Abnormal NEGATIVE [facility] Comment on above: Performed By: #### U AMIC #### [facility] [address] [address] [address] Kashif Martinez MUCOUS NONE SEEN Normal NONE SEEN [facility] Comment on above: Performed By: #### U AMIC #### [facility] [address] [address] [address] Kashif Martinez Nitrite Ql (U) Negative Normal NEGATIVE The [facility] Comment on above: Performed By: #### U AMIC #### [facility] [address] [address] [address] Kashif Martinez pH (U) 6.0 [pH] Normal 5-9 [facility] Comment on above: Performed By: #### U AMIC #### [facility] [address] [place] [address] Dr. Kashif Martinez RBC 0-2 Normal 0-2 [facility] Comment on above: Performed By: #### U AMIC #### [facility] [address] [place] [address] Dr. Kashif Martinez SPEC GRAVITY <=1.005 Abnormal 1.005-<=1.025 [facility] Comment on above: Performed By: #### U AMIC #### [facility] [address] [place] [address] Dr. Kashif Martinez UA PROTEIN Negative Normal NEGATIVE/ TRACE [facility] Comment on above: Performed By: #### U AMIC #### [facility] [address] [place] [address] Dr. Kashif Martinez Urobilinogen Qn (U) 0.2 {Harvinder'U}/dL Normal 0.2 - 1. 0 [facility] Comment on above: Performed By: #### U AMIC #### [facility] [address] [place] [address] Dr. Kashif Martinez WBC 0-2 Abnormal NONE SEEN [facility] Comment on above: Performed By: #### U AMIC #### [facility] [address] [place] [address] Dr. Kashif Martinez CBC AUTO DIFFon 02-07-2023 BASO # 0.0 103/ul Normal 0.0-0.1 [facility] Comment on above: Performed By: #### C BC #### [facility] [address] [place] [address] Dr. Kashif Martinez Basophils/100 WBC (Bld) 0.6 % Normal 0.2-2.0 [facility] Comment on above: Performed By: #### C BC #### [facility] [address] [place] [address] Dr. Kashif Martinez EO # 0.0 103/ul Normal 0.0-0.7 [facility] Comment on above: Performed By: #### C BC #### [facility] [address] [place] [address] Dr. Kashif Martinez Eosinophils/100 WBC (Bld) 0.6 % Critically low 0.9-7.0 [facility] Comment on above: Performed By: #### C BC #### [facility] [address] [place] [address] Dr. Kashif Martinez Erythrocyte distribution width (RBC) [Ratio] 18.1 % Critically high 11.0-15.0 [facility] Comment on above: Performed By: #### C BC #### [facility] [address] [place] [address] Dr. Kashif Martinez Hematocrit (Bld) [Volume fraction] 30.1 % Critically low 36.0-48.0 [facility] Comment on above: Performed By: #### C BC #### [facility] [address] [place] [address] Dr. Kashif Martinez Hemoglobin (Bld) [Mass/Vol] 8.6 g/dL Critically low 12.0-16.0 [facility] Comment on above: Performed By: #### C BC #### [facility] [address] [place] [address] Dr. Kashif Martinez IG # 0.02 10e3/ul Normal 0.00-0.03 [facility] Comment on above: Performed By: #### C BC #### [facility] [address] [place] [address] Dr. Kashif Martinez IG % 0.3 % Normal 0.0-0.5 [facility] Comment on above: Performed By: #### C BC #### [facility] [address] [place] [address] Dr. Kashif Martinez LYMPH # 1.4 103/ul Normal 1.2-3.8 [facility] Comment on above: Performed By: #### C BC #### [facility] [address] [place] [address] Dr. Kashif Martinez Lymphocytes/100 WBC (Bld) 19.8 % Critically low 20.5-60.0 [facility] Comment on above: Performed By: #### C BC #### [facility] [address] [place] [address] Dr. Kashif Martinez MANUAL DIFF REQ NO Normal The [facility] Comment on above: Performed By: #### C BC #### [facility] [address] [place] [address] Dr. Kashif Martinez MCH (RBC) [Entitic mass] 19.2 pg Critically low 26.7-34.0 [facility] Comment on above: Performed By: #### C BC #### [facility] [address] [place] [address] Dr. Kashif Martinez MCHC (RBC) [Mass/Vol] 28.6 g/dL Critically low 29.9-35.2 [facility] Comment on above: Result Comment: Slig ht Hypochromosia Seen Performed By: #### C BC #### [facility] [address] [place] [address] Dr. Kashif Martinez MCV (RBC) [Entitic vol] 67.3 fL Critically low 81.0-99.0 [facility] Comment on above: Performed By: #### C BC #### [facility] [address] [place] [address] Dr. Kashif Martinez MONO # 0.8 103/ul Normal 0.3-0.8 [facility] Comment on above: Performed By: #### C BC #### [facility] [address] [place] [address] Dr. Kashif Martinez Monocytes/100 WBC (Bld) 11.1 % Normal 1.7-12.0 [facility] Comment on above: Performed By: #### C BC #### [facility] [address] [place] [address] Dr. Kashif Martinez NEUT # 4.7 103/ul Normal 1.4-6.5 [facility] Comment on above: Performed By: #### C BC #### [facility] [address] [address] [address] Kashif Martinez Neutrophils/100 WBC (Bld) 67.6 % Normal 43.0-75.0 [facility] Comment on above: Performed By: #### C BC #### [facility] [address] [address] [address] Kashif Martinez Platelet mean volume (Bld) [Entitic vol] 8.5 fL Critically low 9.5-13.5 [facility] Comment on above: Performed By: #### C BC #### [facility] [address] [address] [address] Kashif Martinez PLT 409 103/ul Normal 150-450 [facility] Comment on above: Performed By: #### C BC #### [facility] [address] [place] [address] Dr. Kashif Martinez RBC 4.47 106/ul Normal 4.20-5.40 [facility] Comment on above: Performed By: #### C BC #### [facility] [address] [address] [address] Kashif Martinez WBC 6.9 103/ul Normal 4.0-11.0 [facility] Comment on above: Performed By: #### C BC #### [facility] [address] [place] [address] Dr. Kashif Martinez FREE T3on 02-07-2023 FREE T3 3.47 pg/mlL Normal 2.18-3.98 [facility] Comment on above: Performed By: #### C MP, TSH, T7, LIPID #### [facility] [address] [address] [address] Kashif Martinez GLYCOHEMOGLOBIN A1Con 2022 ADA RECOMMENDATION SEE BELOW Normal The [facility] Comment on above: Result Comment: ADA RECOMMENDED LIMIT 4.0 - 6.0 ADA THERAPEUTIC TARGET < 7.0 ACTION SUGGESTED > 7.0 Performed By: #### C BC #### [facility] [address] [place] [address] Dr. Kashif Martinez Glucose [Mass/Vol] 103 mg/dL Normal The [facility] Comment on above: Performed By: #### C BC #### [facility] [address] [address] [address] Kashif Martinez HbA1c (Bld) [Mass fraction] 5.2 % Normal 4.5-6.2 [facility] Comment on above: Performed By: #### C BC #### [facility] [address] [address] [address] Kashif Martinez IRONon 02-07-2023 Iron [Mass/Vol] 12.0 ug/dL Critically low 50.0-170.0 [facility] Comment on above: Performed By: #### V ITAD, IRON #### [facility] [address] [address] [address] Kashif Martinez LIPID PROFILEon 02-07-2023 CHOL-HDL RATIO NORM SEE BELOW Normal [facility] Comment on above: Result Comment: 3.3 - 4.4 LOW RISK 4.4 - 7.1 AVERAGE RISK 7.1 - 11.0 MODERATE RISK >11.0 HIGH RISK Performed By: #### C MP, TSH, T7, LIPID #### [facility] [address] [address] [address] Kashif Martinez Cholesterol [Mass/Vol] 180 mg/dL Normal <=200 [facility] Comment on above: Performed By: #### C MP, TSH, T7, LIPID #### [facility] [address] [address] [address] Kashif Martinez Cholesterol in HDL [Mass/Vol] 64 mg/dL Critically high 40-60 [facility] Comment on above: Performed By: #### C MP, TSH, T7, LIPID #### [facility] [address] [address] [address] Kashif Martinez Cholesterol in LDL [Mass/Vol] 100.2 mg/dL Normal [facility] Comment on above: Performed By: #### C MP, TSH, T7, LIPID #### [facility] [address] [address] [address] Kashif Martinez Cholesterol.total/Ch olesterol in HDL [Mass ratio] 2.8 {ratio} Normal [facility] Comment on above: Performed By: #### C MP, TSH, T7, LIPID #### [facility] [address] [address] [address] Kashif Martinez HDL NORMAL > or = 60 mg/dl - LO W CARDIOVASCULAR RISK <40 mg/dl - HIGH CARDIOVASCULAR RISK Normal [facility] Comment on above: Performed By: #### C MP, TSH, T7, LIPID #### [facility] [address] [address] [address] Kashif Martinez LDL CALC NORMAL SEE BELOW Normal [facility] Comment on above: Result Comment: <100 mg/dl OPTIMAL 100 - 129 mg/dl NEAR OR ABOVE OPTIMAL 130 - 159 mg/dl BORDERLINE HIGH 160 - 189 mg/dl HIGH >190 mg/dl VERY HIGH Performed By: #### C MP, TSH, T7, LIPID #### [facility] [address] [address] [address] Kashif Martinez Triglyceride [Mass/Vol] 79 mg/dL Normal <=150 [facility] Comment on above: Performed By: #### C MP, TSH, T7, LIPID #### [facility] [address] [address] [address] Kashif Martinez VLDL CALC 15.8 mg/dL Normal [facility] Comment on above: Performed By: #### C MP, TSH, T7, LIPID #### [facility] [address] [address] [address] Kashif Martinez PROF 14(COMP METB)on 023 Albumin [Mass/Vol] 3.8 g/dL Normal 3.4-5.0 [facility] Comment on above: Performed By: #### C BC #### [facility] [address] [address] [address] Kashif Martinez Albumin/Globulin [Mass ratio] 0.9 {ratio} Normal [facility] Comment on above: Performed By: #### C BC #### [facility] [address] [address] [address] Kashif Martinez ALP [Catalytic activity/Vol] 100 U/L Normal 46-116 [facility] Comment on above: Performed By: #### C BC #### [facility] [address] [address] [address] Kashif Martinez ALT [Catalytic activity/Vol] 30 U/L Normal 14-59 [facility] Comment on above: Performed By: #### C BC #### [facility] [address] [address] [address] Kashif Martinez Anion gap [Moles/Vol] 14.5 mmol/L Normal [facility] Comment on above: Performed By: #### C BC #### [facility] [address] [address] [address] Kashif Martinez AST [Catalytic activity/Vol] 22 U/L Normal 15-37 [facility] Comment on above: Performed By: #### C BC #### [facility] [address] [place] [address] Dr. Kashif Martinez Bilirubin [Mass/Vol] 0.4 mg/dL Normal 0.2-1.0 [facility] Comment on above: Performed By: #### C BC #### [facility] [address] [place] [address] Dr. Kashif Martinez Calcium [Mass/Vol] 9.0 mg/dL Normal 8.5-10.1 [facility] Comment on above: Performed By: #### C BC #### [facility] [address] [place] [address] Dr. Kashif Martinez Chloride [Moles/Vol] 104 mmol/L Normal 98-107 [facility] Comment on above: Performed By: #### C BC #### [facility] [address] [address] [address] Kashif Martinez CO2 [Moles/Vol] 26.7 mmol/L Normal 21.0-32.0 [facility] Comment on above: Performed By: #### C BC #### [facility] [address] [place] [address] Dr. Kashif Martinez Creatinine [Mass/Vol] 0.75 mg/dL Normal 0.55-1.02 [facility] Comment on above: Performed By: #### C BC #### [facility] [address] [address] [address] Kashif Martinez EGFR-AF URUGUAYAN >60 Normal >=60 [facility] Comment on above: Performed By: #### C BC #### [facility] [address] [address] [address] Kashif Martinez EGFR-NON AF URUGUAYAN >60 Normal >=60 [facility] Comment on above: Performed By: #### C BC #### [facility] [address] [address] [address] Kashif Martinez Globulin (S) [Mass/Vol] 4.1 g/dL Normal [facility] Comment on above: Performed By: #### C BC #### [facility] [address] [address] [address] Kashif Martinez Glucose [Mass/Vol] 104 mg/dL Normal 74-106 [facility] Comment on above: Performed By: #### C BC #### [facility] [address] [place] [address] Dr. Kashif Martinez Potassium [Moles/Vol] 4.2 mmol/L Normal 3.5-5.1 [facility] Comment on above: Performed By: #### C BC #### [facility] [address] [place] [address] Dr. Kashif Martinez Protein [Mass/Vol] 7.9 g/dL Normal 6.4-8.2 [facility] Comment on above: Performed By: #### C BC #### [facility] [address] [place] [address] Dr. Kashif Martinez Sodium [Moles/Vol] 141 mmol/L Normal 136-145 [facility] Comment on above: Performed By: #### C BC #### [facility] [address] [place] [address] Dr. Kashif Martinez Urea nitrogen [Mass/Vol] 18.0 mg/dL Normal 7.0-18.0 [facility] Comment on above: Performed By: #### C BC #### [facility] [address] [place] [address] Dr. Kashif Martinez Urea nitrogen/Creatinine [Mass ratio] 24.0 mg/mg Normal [facility] Comment on above: Performed By: #### C BC #### [facility] [address] [address] [address] Kashif Martinez T4on 02-07-2023 T4 [Mass/Vol] 11.30 ug/dL Normal 4.80-13.90 [facility] Comment on above: Performed By: #### C BC #### [facility] [address] [place] [address] Dr. Kashif Martinez TSHon 02-07-2023 TSH 0.954 uIU/mL Normal 0.358-3.740 [facility] Comment on above: Performed By: #### C MP, TSH, T7, LIPID #### [facility] [address] [place] [address] Dr. Kashif Martinez VITAMIN D 25 OHon 02-07-2023 VIT D 25-OH 66.3 ng/mL Normal [facility] Comment on above: Performed By: #### V ITAD, IRON #### [facility] [address] [place] [address] Dr. Kashif Martinez VIT D RANGES SEE BELOW Normal [facility] Comment on above: Result Comment: <20 ng/mL Vit D deficient 20 - <30 ng/mL Vit D insufficient 30 - 100 ng/mL Vit D sufficient >100 ng/mL Potential Toxicity Performed By: #### V ITAD, IRON #### [facility] [address] [place] [address] Dr. Kashif Martinez XR CSPINE 2_3 VIEWSon [...] TA TERRELL Date: 2022-10-26 06:29 Normal [facility] XR CSPINE MIN 4 VIEWSon 09-26 XR [...] TA TERRELL Date: 2022-10-19 09:40 Normal [facility] XR TSPINE 3 VIEWSon 10-19-19 23 XR [...] TA TERRELL Date: 2022-10-19 09:45 Normal [facility] WOUND CULTURE, AEROBIC AND A LYDIAEROBITurner 05-24-2022 WOUND CULTURE, AEROBIC AND ANAEROBIC Specimen source XXX: SHOULDER RIGHT 2 Performed at [facility] [address] [address] Service Cmnt XXX-Imp: HOLD 2 WEEKS FOR P ACNES Performed at [address] [address] Microscopic observation: NO ORGANISMS SEEN 1+ WBC Bacteria identified: NO GROWTH 14 DAYS Performed at [facility],[address] [place] [id number] : FINAL 05/24/2022 [facility] Comment on above: Performed By: #### W NDA #### [facility] [id number] [place] [address] WOUND CULTURE, AEROBIC AND ANAEROBIC Specimen source XXX: SHOULDER RIGHT 4 Performed at [id number] Service Cmnt XXX-Imp: HOLD 2 WEEKS FOR P ACNES Performed at [address] [place] [id number] Microscopic observation: NO ORGANISMS SEEN NO WBC SEEN Bacteria identified: NO GROWTH 14 DAYS Performed at [facility],[address] [place] [address] : FINAL 05/24/2022 [facility] Comment on above: Performed By: #### W NDA #### [facility] [address] [place] [address] WOUND CULTURE, AEROBIC AND ANAEROBIC Specimen source XXX: SHOULDER RIGHT 3 Performed at [address] [id number] Service Cmnt XXX-Imp: HOLD 2 WEEKS FOR P ACNES Performed at [address] [place] [id number] Microscopic observation: NO ORGANISMS SEEN NO WBC SEEN Bacteria identified: NO GROWTH 14 DAYS Performed at [facility],[address] [place] [address] : FINAL 05/24/2022 [facility] Comment on above: Performed By: #### W NDA #### [facility] [address] [place] [address] WOUND CULTURE, AEROBIC AND ANAEROBIC Specimen source XXX: SHOULDER RIGHT 1 Performed at [address] [address] Service Cmnt XXX-Imp: HOLD 2 WEEKS FOR P ACNES Performed at [address] [place] [id number] Microscopic observation: NO ORGANISMS SEEN 2+ WBC Bacteria identified: NO GROWTH 14 DAYS Performed at [facility],[address] [place] [id number] : FINAL 05/24/2022 [facility] Comment on above: Performed By: #### W NDA #### [id number] SARS-CoV-2,INFLUENZA A/B NUC LEIC ACID TESTon 05-09-2022 EUA DISCLAIMER [facility] Comment on above: Result Comment: This test [...] is terminated or revoked sooner. Performed at [address] [address] FLU A by PCR Negative [facility] FLU B by PCR Negative [facility] SARS-CoV-2 (COVID-19) RNA MOISES+probe Ql (Unsp spec) Negative Normal NEG [facility] URINE CULTUREon 04-29-2022 Bacteria identified Cx Nom (U) Specimen source XXX: CLEAN VOIDED MIDSTREAM Performed at [place] [address] Service Cmnt XXX-Imp: NONE Reflexed from [id number] Performed at [place] [address] CC Number Ur: [id number] CFU/ml Bacteria identified: NORMAL UROGENITAL V[place] [address] : FINAL 04/29/2022 [facility] Comment on above: Performed By: #### U R #### [place] [address] CBC with Diffon 04-27-2022 AB IMMATURE NEUT 0.03 K/UL Normal 0.0-0.1 [facility] ABS BASO 0.02 K/UL Normal 0.00-0.22 [facility] ABS EOS 0.29 K/UL Normal 0-0.45 [facility] ABS NEUTROPHILS 5.33 K/UL Normal 1.8-7.7 [facility] ABS.NEUT.CALCULATED 5.33 K/UL Normal [facility] Comment on above: Result Comment: Perf ormed at [facility] [address] [facility] [address] Basophils/100 WBC (Bld) 0.20 % Normal 0-1 [facility] DIFF TYPE AUTO DIFF Normal [facility] Eosinophils/100 WBC (Bld) 3.40 % High 0-3 [facility] Erythrocyte distribution width (RBC) [Ratio] 13.0 % Normal 11.7-15.0 [facility] Hematocrit (Bld) [Volume fraction] 43.8 % Normal 36-44 [facility] Hemoglobin (Bld) [Mass/Vol] 14.3 g/dL Normal 12.0-15.0 [facility] Lymphocytes (Bld) [#/Vol] 1.93 10*3/uL Normal 1.2-3.2 [facility] Lymphocytes/100 WBC (Bld) 22.50 % Normal 20-40 [facility] MCH (RBC) [Entitic mass] 29.9 pg Normal 26-34 [facility] MCHC 32.6 % Normal 31-37 [facility] MCV (RBC) [Entitic vol] 91.4 fL Normal 80-100 [facility] MEAN PLT VOL 8.9 CU Normal 7.0-12.6 [facility] Monocytes (Bld) [#/Vol] 0.96 10*3/uL High 0-0.8 [facility] Monocytes/100 WBC (Bld) 11.20 % High 0-8 [facility] Neutrophils/100 WBC (Bld) 0.40 % Normal 0.0-1.0 [facility] Neutrophils/100 WBC (Bld) 62.30 % Normal 50-70 [facility] Platelets (Bld) [#/Vol] 340 10*3/uL Normal 150-450 [facility] RBC (Bld) [#/Vol] 4.79 10*6/uL Normal 4.0-4.9 [facility] RDW-SD 44.8 FL Normal 37.0-54.0 [facility] WBC (Bld) [#/Vol] 8.6 10*3/uL Normal 4.5-11.0 [facility] COMPREHENSIVE METABOLIC PANE Rodriguez 04-27-2022 Albumin [Mass/Vol] 4.7 g/dL Normal 3.5-5.0 [facility] Albumin/Globulin [Mass ratio] 1.7 {ratio} Normal 1.5-3.0 [facility] ALP [Catalytic activity/Vol] 101 U/L Normal 35-125 [facility] ALT [Catalytic activity/Vol] 20 U/L Normal 5-40 [facility] Anion gap [Moles/Vol] 11 mmol/L Normal 0-19 [facility] AST [Catalytic activity/Vol] 24 U/L Normal 5-40 [facility] Bilirubin [Mass/Vol] 0.2 mg/dL Normal 0.1-1.2 [facility] Calcium [Mass/Vol] 10.0 mg/dL Normal 8.5-10.4 [facility] Chloride [Moles/Vol] 107 mmol/L Normal 97-107 [facility] CO2 [Moles/Vol] 25 mmol/L Normal 24-31 [facility] Creatinine [Mass/Vol] 0.6 mg/dL Normal 0.4-1.6 [facility] ESTIMATED GFR 92 mL/min/1.73 m2 Normal [facility] Comment on above: Result Comment: CALCULATIONS OF ESTIMATED GFR ARE PERFORMED USING THE 2020 CKD-EPI STUDY REFIT EQUATION WITHOUT THE RACE VARIABLE FOR THE IDMS-TRACEABLE CREATININE METHODS. https://jasn.asnjournals.org/content//ASN.2155902 988 Performed at [facility] [address] [facility] [address] Globulin (S) [Mass/Vol] 2.8 g/dL Normal 1.9-3.7 [facility] Glucose [Mass/Vol] 92 mg/dL Normal 65-99 [facility] Potassium [Moles/Vol] 4.5 mmol/L Normal 3.4-5.1 [facility] Protein [Mass/Vol] 7.5 g/dL Normal 5.9-7.9 [facility] Sodium [Moles/Vol] 143 mmol/L Normal 133-145 [facility] Urea nitrogen [Mass/Vol] 25 mg/dL Normal 8-25 [facility] Urea nitrogen/Creatinine [Mass ratio] 41.7 mg/mg High 8-21 [facility] HEMOGLOBIN A1con 04-27-2022 HbA1c (Bld) [Mass fraction] 5.4 % Normal 4.0-6.0 [facility] Comment on above: Result Comment: Hemo [...] mg/dl 10% ............................... 240 mg/dl Performed at [address] [address] Performed By: #### G LYC #### [facility] [address] [address] UA-REFLEX TO CULTUREon 04-27 BACT PRESENT Normal [facility] EPI Normal [facility] Comment on above: Result Comment: MODE RATE TRANSITIONAL MODERATE SQUAMOUS RBC OCC Normal 0-3 [facility] Urinalysis dipstick W Reflex Microscopic panel (U) MANUAL MICROSCOPIC URINES Normal [facility] WBC 5-9 Normal 0-3 [facility] OTHER Normal [facility] Comment on above: Result Comment: PRES ENT MUCOUS PRESENT URINE FAT Performed at [facility] [address] [facility] [address] Bacteria identified Cx Nom (U) CULTURE BEING ORDERED BASED ON LEUKOCYTE ESTERASE Normal [facility] Comment on above: Result Comment: CULT URE BEING ORDERED BASED ON LEUKOCYTE ESTERASE Performed at [facility] [address] [address] [facility] [address] BILI Negative Normal NEG [facility] Clarity (U) CLEAR Normal [facility] Color (U) YELLOW Normal [facility] GLUC Negative Normal NEG [facility] Hemoglobin Ql (U) Negative Normal NEG [facility] KET Negative Normal NEG [facility] LEUK TRACE Abnormal NEG [facility] NIT Negative Normal NEG [facility] pH (U) 5.5 [pH] Normal 4.6-8.0 [facility] PROT Negative Normal NEG [facility] SP GRAV,URINE 1.020 Normal 1.005-1.030 [facility] URO 0.2 MG/DL Normal 0-1.0 [facility] INSULINon 03-04-2022 Insulin 16.0 uIU/mL Normal 2.6-24.9 [facility] Comment on above: Performed By: #### C BC #### [facility] [address] [place] [address] Dr. Kashif Martinez T4 LABCORPon 03-04-2022 T4 [Mass/Vol] 9.2 ug/dL Normal 4.5-12.0 [facility] Comment on above: Performed By: #### C BC #### [facility] [address] [place] [address] Dr. Kashif Martinez CBC AUTO DIFFon 03-03-2022 BASO # 0.0 103/ul Normal 0.0-0.1 [facility] Comment on above: Performed By: #### C BC #### [facility] [address] [place] [address] Dr. Kashif Martinez Basophils/100 WBC (Bld) 0.4 % Normal 0.2-2.0 [facility] Comment on above: Performed By: #### C BC #### [facility] [address] [place] [address] Dr. Kashif Martinez EO # 0.0 103/ul Normal 0.0-0.7 [facility] Comment on above: Performed By: #### C BC #### [facility] [address] [place] [address] Dr. Kashif Martinez Eosinophils/100 WBC (Bld) 0.1 % Critically low 0.9-7.0 [facility] Comment on above: Performed By: #### C BC #### [facility] [address] [place] [address] Dr. Kashif Martinez Erythrocyte distribution width (RBC) [Ratio] 13.7 % Normal 11.0-15.0 [facility] Comment on above: Performed By: #### C BC #### [facility] [address] [place] [address] Dr. Kashif Martinez Hematocrit (Bld) [Volume fraction] 42.0 % Normal 36.0-48.0 [facility] Comment on above: Performed By: #### C BC #### [facility] [address] [place] [address] Dr. Kashif Martinez Hemoglobin (Bld) [Mass/Vol] 13.6 g/dL Normal 12.0-16.0 [facility] Comment on above: Performed By: #### C BC #### [facility] [address] [place] [address] Dr. Kashif Martinez IG # 0.03 10e3/ul Normal 0.00-0.03 [facility] Comment on above: Performed By: #### C BC #### [facility] [address] [place] [address] Dr. Kashif Martinez IG % 0.4 % Normal 0.0-0.5 [facility] Comment on above: Performed By: #### C BC #### [facility] [address] [place] [address] Dr. Kashif Martienz LYMPH # 1.2 103/ul Normal 1.2-3.8 [facility] Comment on above: Performed By: #### C BC #### [facility] [address] [place] [address] Dr. Kashif Martinez Lymphocytes/100 WBC (Bld) 16.4 % Critically low 20.5-60.0 [facility] Comment on above: Performed By: #### C BC #### [facility] [address] [place] [address] Dr. Kashif Martinez MANUAL DIFF REQ NO Normal [facility] Comment on above: Performed By: #### C BC #### [facility] [address] [place] [address] Dr. Kashif Martinez MCH (RBC) [Entitic mass] 29.6 pg Normal 26.7-34.0 [facility] Comment on above: Performed By: #### C BC #### [facility] [address] [place] [address] Dr. Kashif Martinez MCHC (RBC) [Mass/Vol] 32.4 g/dL Normal 29.9-35.2 [facility] Comment on above: Performed By: #### C BC #### [facility] [address] [place] [address] Dr. Kashif Martinez MCV (RBC) [Entitic vol] 91.5 fL Normal 81.0-99.0 [facility] Comment on above: Performed By: #### C BC #### [facility] [address] [place] [address] Dr. Kashif Martinez MONO # 0.8 103/ul Normal 0.3-0.8 [facility] Comment on above: Performed By: #### C BC #### [facility] [address] [place] [address] Dr. Kashif Martinez Monocytes/100 WBC (Bld) 10.5 % Normal 1.7-12.0 [facility] Comment on above: Performed By: #### C BC #### [facility] [address] [place] [address] Dr. Kashif Martinez NEUT # 5.3 103/ul Normal 1.4-6.5 [facility] Comment on above: Performed By: #### C BC #### [facility] [address] [place] [address] Dr. Kashif Martinez Neutrophils/100 WBC (Bld) 72.2 % Normal 43.0-75.0 [facility] Comment on above: Performed By: #### C BC #### [facility] [address] [place] [address] Dr. Kashif Martinez Platelet mean volume (Bld) [Entitic vol] 8.8 fL Critically low 9.5-13.5 [facility] Comment on above: Performed By: #### C BC #### [facility] [address] [place] [address] Dr. Kashif Martinez PLT 340 103/ul Normal 150-450 [facility] Comment on above: Performed By: #### C BC #### [facility] [address] [place] [address] Dr. Kashif Martinez RBC 4.59 106/ul Normal 4.20-5.40 [facility] Comment on above: Performed By: #### C BC #### [facility] [address] [place] [address] Dr. Kashif Martinez WBC 7.3 103/ul Normal 4.0-11.0 [facility] Comment on above: Performed By: #### C BC #### [facility] [address] [place] [address] Dr. Kashif Martinez FREE THYROXINE INDEX T7on FTI 3.04 Normal 1.30-4.50 [facility] Comment on above: Performed By: #### C MP, TSH, T7, LIPID #### [facility] [address] [place] [address] Dr. Kashif Martinez T3U 33.0 % Normal 30.0-39.0 [facility] Comment on above: Performed By: #### C MP, TSH, T7, LIPID #### [facility] [address] [place] [address] Dr. Kashif Martinez T4 [Mass/Vol] 9.20 ug/dL Normal 4.80-13.90 [facility] Comment on above: Performed By: #### C MP, TSH, T7, LIPID #### [facility] [address] [place] [address] Dr. Kashif Martinez GLYCOHEMOGLOBIN A1Con 2021 ADA RECOMMENDATION SEE BELOW Normal [facility] Comment on above: Result Comment: ADA RECOMMENDED LIMIT 4.0 - 6.0 ADA THERAPEUTIC TARGET < 7.0 ACTION SUGGESTED > 7.0 Performed By: #### C BC #### [facility] [address] [address] [address] Kashif Martinez Glucose [Mass/Vol] 103 mg/dL Normal [facility] Comment on above: Performed By: #### C BC #### [facility] [address] [address] [address] Kashif Martinez HbA1c (Bld) [Mass fraction] 5.2 % Normal 4.5-6.2 [facility] Comment on above: Performed By: #### C BC #### [facility] [address] [place] [address] Dr. Kashif Martinez IRONon 03-03-2022 Iron [Mass/Vol] 85.0 ug/dL Normal 50.0-170.0 [facility] Comment on above: Performed By: #### C BC #### [facility] [address] [place] [address] Dr. Kashif Martinez LIPID PROFILEon 03-03-2022 CHOL-HDL RATIO NORM SEE BELOW Normal [facility] Comment on above: Result Comment: 3.3 - 4.4 LOW RISK 4.4 - 7.1 AVERAGE RISK 7.1 - 11.0 MODERATE RISK >11.0 HIGH RISK Performed By: #### C MP, TSH, T7, LIPID #### [facility] [address] [place] [address] Dr. Kashif Martinez Cholesterol [Mass/Vol] 219 mg/dL Critically high <=200 [facility] Comment on above: Performed By: #### C MP, TSH, T7, LIPID #### [facility] [address] [place] [address] Dr. Kashif Martinez Cholesterol in HDL [Mass/Vol] 51 mg/dL Normal 40-60 [facility] Comment on above: Performed By: #### C MP, TSH, T7, LIPID #### [facility] [address] [place] [address] Dr. Kashif Martinez Cholesterol in LDL [Mass/Vol] 141.4 mg/dL Normal [facility] Comment on above: Performed By: #### C MP, TSH, T7, LIPID #### [facility] [address] [address] [address] Kashif Martinez Cholesterol.total/Ch olesterol in HDL [Mass ratio] 4.3 {ratio} Normal [facility] Comment on above: Performed By: #### C MP, TSH, T7, LIPID #### [facility] [address] [address] [address] Kashif Martinez HDL NORMAL > or = 60 mg/dl - LO W CARDIOVASCULAR RISK <40 mg/dl - HIGH CARDIOVASCULAR RISK Normal [facility] Comment on above: Performed By: #### C MP, TSH, T7, LIPID #### [facility] [address] [address] [address] Kashif Martinez LDL CALC NORMAL SEE BELOW Normal [facility] Comment on above: Result Comment: <100 mg/dl OPTIMAL 100 - 129 mg/dl NEAR OR ABOVE OPTIMAL 130 - 159 mg/dl BORDERLINE HIGH 160 - 189 mg/dl HIGH >190 mg/dl VERY HIGH Performed By: #### C MP, TSH, T7, LIPID #### [facility] [address] [address] [address] Kashif Martinez Triglyceride [Mass/Vol] 133 mg/dL Normal <=150 [facility] Comment on above: Performed By: #### C MP, TSH, T7, LIPID #### [facility] [address] [place] [address] Dr. Kashif Martinez VLDL CALC 26.6 mg/dL Normal [facility] Comment on above: Performed By: #### C MP, TSH, T7, LIPID #### [facility] [address] [address] [address] Kashif Martinez PROF 14(COMP METB)on 022 Albumin [Mass/Vol] 3.7 g/dL Normal 3.4-5.0 [facility] Comment on above: Performed By: #### C MP, TSH, T7, LIPID #### [facility] [address] [place] [address] Dr. Kashif Martinez Albumin/Globulin [Mass ratio] 1.0 {ratio} Normal [facility] Comment on above: Performed By: #### C MP, TSH, T7, LIPID #### [facility] [address] [address] [address] Kashif Martinez ALP [Catalytic activity/Vol] 83 U/L Normal 46-116 [facility] Comment on above: Performed By: #### C MP, TSH, T7, LIPID #### [facility] [address] [address] [address] Kashif Martinez ALT [Catalytic activity/Vol] 30 U/L Normal 14-59 [facility] Comment on above: Performed By: #### C MP, TSH, T7, LIPID #### [facility] [address] [address] [address] Kashif Martinez Anion gap [Moles/Vol] 14.3 mmol/L Normal [facility] Comment on above: Performed By: #### C MP, TSH, T7, LIPID #### [facility] [address] [place] [address] Dr. Kashif Martinez AST [Catalytic activity/Vol] 21 U/L Normal 15-37 [facility] Comment on above: Performed By: #### C MP, TSH, T7, LIPID #### [facility] [address] [address] [address] Kashif Martinez Bilirubin [Mass/Vol] 0.4 mg/dL Normal 0.2-1.0 [facility] Comment on above: Performed By: #### C MP, TSH, T7, LIPID #### [facility] [address] [address] [address] Kashif Martinez Calcium [Mass/Vol] 9.2 mg/dL Normal 8.5-10.1 [facility] Comment on above: Performed By: #### C MP, TSH, T7, LIPID #### [facility] [address] [address] [address] Kashif Martinez Chloride [Moles/Vol] 106 mmol/L Normal 98-107 [facility] Comment on above: Performed By: #### C MP, TSH, T7, LIPID #### [facility] [address] [address] [address] Kashif Martinez CO2 [Moles/Vol] 26.2 mmol/L Normal 21.0-32.0 [facility] Comment on above: Performed By: #### C MP, TSH, T7, LIPID #### [facility] [address] [place] [address] Dr. Kashif Martinez Creatinine [Mass/Vol] 0.70 mg/dL Normal 0.55-1.02 [facility] Comment on above: Performed By: #### C MP, TSH, T7, LIPID #### [facility] [address] [place] [address] Dr. Kashif Martinez EGFR-AF URUGUAYAN >60 Normal >=60 [facility] Comment on above: Performed By: #### C MP, TSH, T7, LIPID #### [facility] [address] [place] [address] Dr. Kashif Martinez EGFR-NON AF URUGUAYAN >60 Normal >=60 [facility] Comment on above: Performed By: #### C MP, TSH, T7, LIPID #### [facility] [address] [place] [address] Dr. Kashif Martinez Globulin (S) [Mass/Vol] 3.6 g/dL Normal [facility] Comment on above: Performed By: #### C MP, TSH, T7, LIPID #### [facility] [address] [place] [address] Dr. Kashif Martinez Glucose [Mass/Vol] 101 mg/dL Normal 74-106 [facility] Comment on above: Performed By: #### C MP, TSH, T7, LIPID #### [facility] [address] [place] [address] Dr. Kashif Martinez Potassium [Moles/Vol] 4.5 mmol/L Normal 3.5-5.1 [facility] Comment on above: Performed By: #### C MP, TSH, T7, LIPID #### [facility] [address] [place] [address] Dr. Kashif Martinez Protein [Mass/Vol] 7.3 g/dL Normal 6.4-8.2 [facility] Comment on above: Performed By: #### C MP, TSH, T7, LIPID #### [facility] [address] [place], [place] [id number] Dr. Kashif Martinez Sodium [Moles/Vol] 142 mmol/L Normal 136-145 [facility] Comment on above: Performed By: #### C MP, TSH, T7, LIPID #### [facility] [address] [place] [address] Dr. Kashif Martinez Urea nitrogen [Mass/Vol] 18.0 mg/dL Normal 7.0-18.0 [facility] Comment on above: Performed By: #### C MP, TSH, T7, LIPID #### [facility] [address] [place] [address] Dr. Kashif Martinez Urea nitrogen/Creatinine [Mass ratio] 25.7 mg/mg Normal [facility] Comment on above: Performed By: #### C MP, TSH, T7, LIPID #### [facility] [address] [place] [address] Dr. Kashif Martinez TSHon 03-03-2022 TSH 0.760 uIU/mL Normal 0.358-3.740 [facility] Comment on above: Performed By: #### C MP, TSH, T7, LIPID #### [facility] [address] [place] [address] Dr. Kashif Martinez TSH RANGE SEE BELOW Normal [facility] Comment on above: Result Comment: <0.3 4 UIU/ml HYPERTHYROID 0.34-5.60 UIU/ml EUTHYROID >5.60 UIU/ml HYPOTHYROID Performed By: #### C MP, TSH, T7, LIPID #### [facility] [address] [place] [address] Dr. Kashif Martinez VITAMIN D 25 OHon 03-03-2022 VIT D 25-OH 68.1 ng/mL Normal [facility] Comment on above: Performed By: #### C BC #### [facility] [address] [place] [address] Dr. Kashif Martinez VIT D RANGES SEE BELOW Normal [facility] Comment on above: Result Comment: <20 ng/mL Vit D deficient 20 - <30 ng/mL Vit D insufficient 30 - 100 ng/mL Vit D sufficient >100 ng/mL Potential Toxicity Performed By: #### C BC #### [facility] [address] [address] [address] Kashif Martinez XR pre/post mri xrayon 04-22 XR pre/post mri xray [facility] [place] [address] [place] [id number] MRI Report Signed Patient: Qing Fischer MR#: [id number] 2 : 1945 Acct:[id number] Age/Sex: 75 / F ADM Date: 04/22/21 Loc: [facility] Room: Type: [facility] CLI Attending Dr: Lyndon Thomason Jr, DO Ordering Provider: Lyndon Thomason Jr, DO Date of Service: 04/22/21 MR/MR shoulder RT wo con: [id number] ([id number]) XR/XR pre/post mri xray: RT SHOULDER PAIN [...] Soham Boyd M.D.04/22/2021 4:44 PM Dictation Location: [place] [address] Transcribed By: [facility] 04/22/21 1644 Dictated By: Soham Boyd DO 04/22/21 1633 Signed By: 04/22/21 1644 [facility] BMPon 04-06-2019 Anion gap [Moles/Vol] 10 mmol/L 10 - 20 mmol/L [facility] Calcium [Mass/Vol] 9.2 mg/dL 8.4 - 10. 2 mg/dL [facility] Chloride [Moles/Vol] 110 mmol/L High 98 - 10 8 mmol/L [facility] Creatinine [Mass/Vol] 0.73 mg/dL 0.6 - 1.2 mg/dL [facility] GFR/1.73 sq M predicted among non-blacks MDRD (S/P/Bld) [Vol rate/Area] The eGFR should be used for monitoring renal function only and not for medication dosing. [facility] GFR/1.73 sq M.predicted CKD-EPI (S/P/Bld) [Vol rate/Area] 81 >=60 mL/min/1.73 m2 [facility] Glucose [Mass/Vol] 117 mg/dL High 65 - 99 mg/dL [facility] HCO3 [Moles/Vol] 24 mmol/L 21 - 32 mmol/L [facility] Interpretation and review of laboratory results Abnormal [facility] Potassium [Moles/Vol] 3.8 mmol/L 3.5 - 5.1 mmol/L [facility] Sodium [Moles/Vol] 140 mmol/L 135 - 145 mmol/L [facility] Urea nitrogen [Mass/Vol] 16 mg/dL 8 - 25 mg/dL [facility] Urea nitrogen/Creatinine [Mass ratio] 21.9 mg/mg High [facility] CBC WITH AUTO DIFFERENTIALon 04-06-2019 Basophils (Bld) [#/Vol] 0.02 10*3/uL [facility] Basophils/100 WBC (Bld) 0.3 % [facility] Eosinophils (Bld) [#/Vol] 0.04 10*3/uL [facility] Eosinophils/100 WBC (Bld) 0.6 % [facility] Erythrocyte distribution width (RBC) [Entitic vol] 15.8 % High 11.6 - 14.8 % [facility] Hematocrit (Bld) [Volume fraction] 42.1 % 36 - 46 % [facility] Hemoglobin (Bld) [Mass/Vol] 13.7 g/dL 12 - 16 g/dL [facility] Immature granulocytes (Bld) [#/Vol] 0.02 10*3/uL [facility] Immature granulocytes/100 WBC (Bld) 0.30 % [facility] Comment on above: The IG parameter is the percentage of metamyelocytes, myelocytes, and promyelocytes. Interpretation and review of laboratory results Abnormal [facility] Lymphocytes (Bld) [#/Vol] 1.24 10*3/uL [facility] Lymphocytes/100 WBC (Bld) 17.8 % [facility] MCH (RBC) [Entitic mass] 27.3 pg 26 - 34 pg [facility] MCHC (RBC) [Mass/Vol] 32.5 g/dL 31 - 37 g/dL [facility] MCV (RBC) [Entitic vol] 83.9 fL 80 - 100 fL [facility] Monocytes (Bld) [#/Vol] 0.82 10*3/uL [facility] Monocytes/100 WBC (Bld) 11.8 % [facility] Neutrophils (Bld) [#/Vol] 4.82 10*3/uL [facility] Neutrophils/100 WBC (Bld) 69.2 % [facility] Nucleated RBC (Bld) [#/Vol] 0.00 10*3/uL [facility] Nucleated RBC/100 WBC (Bld) [Ratio] 0.0 % [facility] Platelet mean volume (Bld) [Entitic vol] 8.2 fL Low 9 - 15.5 fL [facility] Platelets (Bld) [#/Vol] 273 10*3/uL [facility] RBC (Bld) [#/Vol] 5.02 10*6/uL [facility] WBC (Bld) [#/Vol] 6.96 10*3/uL [facility] ECG 12-LEADon 04-06-2019 Lesley Dawkins 04/06/2019 12:08 PM EKG 12-lead Date/Time: 04/06/2019 11:35 AM Performed by: Shell Hawkins MD Authorized by: Shell Hawkins MD Interpreted by ED attending physician Rhythm: sinus rhythm BPM: 80 Conduction: complete RBBB ST Segments: ST segments normal T Waves: T waves normal Other: no other findings [facility] Otheron 04-06-2019 Extra Tube Hold for add-ons. [facility] Comment on above: Auto resulted. HIP RIGHT 1 OR 2 VWS WITH PE LVISon 11-01-2018 HIP RIGHT 1 OR 2 VWS WITH PELVIS [facility] Department of Radiology [address] [place] [id number] ======== Patient Name: QING FISCHER : [...] , , , Ordering Provider - LAURIE TOWNESND PA-C , PROTOCOL: AP(PA) and Lateral views were obtained. COMPARISON: October 01, 2018 FINDINGS: Soft tissues: Unchanged Bones: Unchanged Joints: Unchanged IMPRESSION: Healing right intertrochanteric fracture with dynamic hip screw is similar to prior superimposed upon osteoporotic skeleton Electronically signed by:Wolfgang Ibarra. Transcribed by: [email or web address], User Resident: Electronically Signed by: WOLFGANG IBARRA @ 11/01/2018 02:05 PM Normal [facility] Comment on above: Order Comment: No: D o not add to previous draw HIP RIGHT 1 OR 2 VWS WITH PE LVISon 10-01-2018 HIP RIGHT 1 OR 2 VWS WITH PELVIS [facility] Department of Radiology [address] [place] [id number] ======== Patient Name: QING FISCHER : [...] fracture Electronically signed by:Wolfgang Ibarra. Transcribed by: [email or web address], User Resident: Electronically Signed by: WOLFGANG IBARRA @ 10/01/2018 04:11 PM Normal [facility] Comment on above: Order Comment: No: D o not add to previous draw HIP RIGHT 1 OR 2 VWS WITH PE IBETHISon 08-24-2018 HIP RIGHT 1 OR 2 VWS WITH PELVIS [facility] Department of Radiology [address] [place] [id number] ======== Patient Name: QING FISCHER : 1945 Sex: F Age: Race: White Pt. Location: 84 Patient Status: Ordered Date: 08/24/2018 1:05:00 PM [...] spine Electronically signed by:Wolfgang Ibarra. Transcribed by: [email or web address], User Resident: Electronically Signed by: WOLFGANG IBARRA @ 08/24/2018 02:16 PM Normal [facility] Comment on above: Order Comment: No: D o not add to previous draw HIP RIGHT 1 OR 2 VWS WITH PE LVISon 07-26-2018 HIP RIGHT 1 OR 2 VWS WITH PELVIS [facility] Department of Radiology [address] [place] [address] ======== Patient Name: QING FISCHER : 1945 Sex: F Age: Race: White Pt. Location: Patient Status: Ordered Date: 07/26/2018 9:40:00 AM Completed Date: 07/26/2018 09:43 AM Requesting Provider: LAURIE TOWNSEND Attending Provider: Report Copy To: Signs & Symptoms: S72.141D Displ intertroch fx r femur, subs for clos fx w routn heal I10 History: [place] Comments: , Views (X-RAY, HIP): Radiologic Protocol [...] alignment Electronically signed by:Wolfgang Ibarra. Transcribed by: [email or web address], User Resident: Electronically Signed by: WOLFGANG IBARRA @ 07/26/2018 01:34 PM Normal [facility] Comment on above: Order Comment: No: D o not add to previous draw BASIC METABOLIC PANELon 10-2 Calcium mass conc 8.3 mg/dL Low 8.6-10.3 The [facility] Comment on above: Order Comment: No: D o not add to previous draw Performed By: #### 0 0071 #### [facility] [address] [place] [address], [place] Chloride molar conc 103 mmol/L Normal 98-[address] [facility] Comment on above: Order Comment: No: D o not add to previous draw Performed By: #### 0 0071 #### [facility] [address] [place] [address], [place] CO2 molar conc 26 mmol/L Normal 21-31 The [facility] Comment on above: Order Comment: No: D o not add to previous draw Performed By: #### 0 0071 #### [facility] [address] [place] [address], [place] Creatinine mass conc 0.56 mg/dL Low 0.60-1.20 [facility] Comment on above: Order Comment: No: D o not add to previous draw Performed By: #### 0 0071 #### [facility] [address] [place] [address], [place] GFR/1.73 sq M predicted among blacks MDRD vol rate/area (S/P/Bld) mL/min/{1.73_m2} Normal >60 The [facility] Comment on above: Order Comment: No: D o not add to previous draw Result Comment: Calc ulation may not be valid for patients over 70 years Performed By: #### 0 0071 #### [facility] [address] [place] [address], [place] GFR/1.73 sq M predicted among non-blacks MDRD vol rate/area (S/P/Bld) mL/min/{1.73_m2} Normal >60 The [facility] Comment on above: Order Comment: No: D o not add to previous draw Result Comment: Calc ulation may not be valid for patients over 70 years Performed By: #### 0 0071 #### [facility] [address] [place] [address], [facility] Glucose mass conc 114 mg/dL High 70-100 The [facility] Comment on above: Order Comment: No: D o not add to previous draw Performed By: #### 0 0071 #### [facility] [address] [place] [address], [facility] Potassium molar conc 4.0 mmol/L Normal 3.5-5.1 [facility] Comment on above: Order Comment: No: D o not add to previous draw Performed By: #### 0 0071 #### [facility] [address] [place] [address], [place] Sodium molar conc 136 mmol/L Normal 136-145 [facility] Comment on above: Order Comment: No: D o not add to previous draw Performed By: #### 0 0071 #### [facility] [address] [place] [address], [place] Urea nitrogen mass conc 9 mg/dL Normal 7-25 [facility] Comment on above: Order Comment: No: D o not add to previous draw Performed By: #### 0 0071 #### [facility] [address] [place] [address], [place] CBC COMPLETE BLOOD COUNTon Erythrocyte distribution width Ratio (RBC) 13.8 % Normal 11.5-15.0 [facility] Comment on above: Order Comment: No: D o not add to previous draw Performed By: #### 5 [id number] #### [facility] [address] [place] [address], [place] Hematocrit Volume Fraction (Bld) 30.5 % Low 36.0-45.0 [facility] Comment on above: Order Comment: No: D o not add to previous draw Performed By: #### 5 [id number] #### [facility] [address] [place] [address], [facility] Hemoglobin mass conc (Bld) 10.1 g/dL Low 12.0-15.0 [facility] Comment on above: Order Comment: No: D o not add to previous draw Performed By: #### 5 [id number] #### [facility] [address] [place] [address], [facility] MCH Entitic mass (RBC) 29.9 pg Normal 27.0-33.0 [facility] Comment on above: Order Comment: No: D o not add to previous draw Performed By: #### 5 [id number] #### [facility] [address] [place] [address], [facility] MCHC mass conc (RBC) 33.1 g/dL Normal 32.0-35.0 [facility] Comment on above: Order Comment: No: D o not add to previous draw Performed By: #### 5 [id number] #### [facility] [address] [place] [address], [facility] MCV Entitic volume (RBC) 90.2 fL Normal 82.0-98.0 [facility] Comment on above: Order Comment: No: D o not add to previous draw Performed By: #### 5 [id number] #### [facility] [address] [place] [address], [facility] Nucleated RBC/100 WBC Ratio (Bld) 0 % Normal 0-0 [facility] Comment on above: Order Comment: No: D o not add to previous draw Performed By: #### 5 [id number] #### [facility] [address] [place] [address], [facility] PLAT CNT 180 10*3/uL Normal 150-400 The [facility] Comment on above: Order Comment: No: D o not add to previous draw Performed By: #### 5 [id number] #### [facility] [address] [place] [address], [facility] RBC #/vol (Bld) 3.38 10*6/uL Low 3.80-5.00 The [facility] Comment on above: Order Comment: No: D o not add to previous draw Performed By: #### 5 [id number] #### [facility] [address] [place] [address], [facility] WBC #/vol (Bld) 8.43 10*3/uL Normal 4.00-10.60 The [facility] Comment on above: Order Comment: No: D o not add to previous draw Performed By: #### 5 [id number] #### [facility] [address] Operative Reporton 10--201 8 Operative Report MR#: [id number] I [facility] Pt. Name: Qing Fischer Room #: [id number] Discharge Date: Birthdate: 1945 OPERATIVE REPORT DATE [...] Nunez M.D. Date Trans: 07/13/2018 11:30 P/richard [id number] cc: Nona Mcknight M.D. [address] [place] [address] Normal [facility] BASIC METABOLIC PANELon 10- Calcium mass conc 9.2 mg/dL Normal 8.6-10.3 [facility] Comment on above: Order Comment: No: D o not add to previous draw Performed By: #### 0 0071 #### [facility] [address] [place] [address], [place] Chloride molar conc 104 mmol/L Normal 98-107 The [facility] Comment on above: Order Comment: No: D o not add to previous draw Performed By: #### 0 0071 #### [facility] [address] [place] [address], [place] CO2 molar conc 28 mmol/L Normal 21-31 [facility] Comment on above: Order Comment: No: D o not add to previous draw Performed By: #### 0 0071 #### [facility] [address] [place] [address], [place] Creatinine mass conc 0.66 mg/dL Normal 0.60-1.20 [facility] Comment on above: Order Comment: No: D o not add to previous draw Performed By: #### 0 0071 #### [facility] [address] [place] [address], [place] GFR/1.73 sq M predicted among blacks MDRD vol rate/area (S/P/Bld) mL/min/{1.73_m2} Normal >60 The [facility] Comment on above: Order Comment: No: D o not add to previous draw Result Comment: Calc ulation may not be valid for patients over 70 years Performed By: #### 0 0071 #### [facility] [address] [place] [address], [place] GFR/1.73 sq M predicted among non-blacks MDRD vol rate/area (S/P/Bld) mL/min/{1.73_m2} Normal >60 The [facility] Comment on above: Order Comment: No: D o not add to previous draw Result Comment: Calc ulation may not be valid for patients over 70 years Performed By: #### 0 0071 #### [facility] [address] [place] [address], [facility] Glucose mass conc 117 mg/dL High 70-100 The [facility] Comment on above: Order Comment: No: D o not add to previous draw Performed By: #### 0 0071 #### [facility] [address] [place] [address], [facility] Potassium molar conc 4.1 mmol/L Normal 3.5-5.1 [facility] Comment on above: Order Comment: No: D o not add to previous draw Performed By: #### 0 0071 #### [facility] [address] [place] [address], [facility] Sodium molar conc 138 mmol/L Normal 136-145 The [facility] Comment on above: Order Comment: No: D o not add to previous draw Performed By: #### 0 0071 #### [facility] [address] [place] [address], [facility] Urea nitrogen mass conc 16 mg/dL Normal 7-25 [facility] Comment on above: Order Comment: No: D o not add to previous draw Performed By: #### 0 0071 #### [facility] [address] [place] [address], [facility] CBC COMPLETE BLOOD COUNTon Erythrocyte distribution width Ratio (RBC) 13.9 % Normal 11.5-15.0 [facility] Comment on above: Order Comment: No: D o not add to previous draw Performed By: #### 5 [id number] #### [facility] [address] [place] [address], [facility] Hematocrit Volume Fraction (Bld) 41.6 % Normal 36.0-45.0 [facility] Comment on above: Order Comment: No: D o not add to previous draw Performed By: #### 5 0608 #### [facility] [address] [facility] Hemoglobin mass conc (Bld) 13.3 g/dL Normal 12.0-15.0 [facility] Comment on above: Order Comment: No: D o not add to previous draw Performed By: #### 5 0608 #### [facility] [address] MCH Entitic mass (RBC) 29.0 pg Normal 27.0-33.0 [facility] Comment on above: Order Comment: No: D o not add to previous draw Performed By: #### 5 0608 #### [facility] [address] MCHC mass conc (RBC) 32.0 g/dL Normal 32.0-35.0 [facility] Comment on above: Order Comment: No: D o not add to previous draw Performed By: #### 5 0608 #### [facility] [address] MCV Entitic volume (RBC) 90.8 fL Normal 82.0-98.0 [facility] Comment on above: Order Comment: No: D o not add to previous draw Performed By: #### 5 0608 #### [facility] [address] Nucleated RBC/100 WBC Ratio (Bld) 0 % Normal 0-0 [facility] Comment on above: Order Comment: No: D o not add to previous draw Performed By: #### 5 0608 #### [facility] [address] [place] [address], [facility] PLAT CNT 189 10*3/uL Normal 150-400 The [facility] Comment on above: Order Comment: No: D o not add to previous draw Performed By: #### 5 0608 #### [id number] [place] [address] RBC #/vol (Bld) 4.58 10*6/uL Normal 3.80-5.00 [facility] Comment on above: Order Comment: No: D o not add to previous draw Performed By: #### 5 0608 #### [facility] [address] [place] [address], [facility] WBC #/vol (Bld) 9.00 10*3/uL Normal 4.00-10.60 [facility] Comment on above: Order Comment: No: D o not add to previous draw Performed By: #### 5 0608 #### [id number] [place] [address] CT LOWER EXTREMITY WO CONTRA ST RIGHTon 07-13-2018 CT LOWER EXTREMITY WO CONTRAST RIGHT [facility] Department of Radiology [address] [place] [phone] ======== Patient Name: QING FISCHER : 1945 Sex: F Age: Race: White Pt. Location: [id number] Patient Status: I Ordered Date: 07/13/2018 7:15:00 [...] definitive. Electronically signed by:Wolfgang Ibarra. Transcribed by: [email or web address], User Resident: Electronically Signed by: WOLFGANG IBARRA @ 07/13/2018 10:26 AM Normal [facility] Comment on above: Order Comment: R/O F ractures, R hip for basicervical fx HIP RIGHT 1 OR 2 VWS WITH PE LVISon 07-13-2018 HIP RIGHT 1 OR 2 VWS WITH PELVIS [facility] Department of Radiology [address] [place] [phone] ======== Patient Name: QING FISCHER : 1945 Sex: F Age: Race: White Pt. Location: [id number] Patient Status: I Ordered Date: 07/13/2018 12:55:00 [...] findings. Electronically signed by:Anjel Fitzgerald. Transcribed by: [email or web address], User Resident: ZACARIAS LECHUGA Electronically Signed by: ANJEL FITZGERALD @ 07/14/2018 08:57 PM I personally read this/these film(s) with this resident Normal [facility] Comment on above: Order Comment: Right hip VHS with POC GLUCOSE LABon 07-13-2018 Glucose mass conc 128 mg/dL High 70-100 [facility] Comment on above: Performed By: #### 8 [id number] #### [address] PROTHROMBIN TIMEon 10-19-201 8 INR Coag RelTime (PPP) 1.03 {INR} Normal 0.91-1.16 [facility] Comment on above: Order Comment: No: D [...] By: #### 5 6101 #### [facility] [employer] [address] Prothrombin time (PT) Coag time (PPP) 13.5 s Normal 12.3-14.8 [facility] Comment on above: Order Comment: No: D o not add to previous draw Result Comment: ALL RESULTS MUST BE INTERPRETED WITH RESPECT TO BLOOD DRAWING ARTIFACT OR DILUTION ERROR OF ANTICOAGULANT AT THE TIME OF SAMPLING. Performed By: #### 5 6101 #### [facility] [address] [facility]. [address] RBC'S 2 UNITSon 07-13-2018 CROSSMATCH INTERP 1 COMP Normal [facility] Comment on above: Order Comment: Other Performed By: #### 8 6002 #### [facility] [address] [place] [address], [place] CROSSMATCH INTERP 2 COMP Normal [facility] Comment on above: Order Comment: Other Performed By: #### 8 6002 #### [facility] [address] [place] [address], [place] Protein mass conc 336 g/dL Normal [facility] Comment on above: Order Comment: Other Performed By: #### 8 6002 #### [facility] [address] [place] [address], [place] Protein mass conc RE Normal [facility] Comment on above: Order Comment: Other Result Comment: Resu lt changed by IF on 07/16/2018 23:15. The previous value was XM. Performed By: #### 8 6002 #### [facility] [address] [place] [address], [place] UNIT ABO 1 O Normal [facility] Comment on above: Order Comment: Other Performed By: #### 8 6002 #### [facility] [address] [place] [address], [place] UNIT ABO 2 O Normal [facility] Comment on above: Order Comment: Other Performed By: #### 8 6002 #### [facility] [address] [place] [address], [place] UNIT ID 1 [id number] Normal [facility] Comment on above: Order Comment: Other Performed By: #### 8 6002 #### [facility] [address] [place] [address], [place] UNIT ID 2 [id number] Normal [facility] Comment on above: Order Comment: Other Performed By: #### 8 6002 #### [facility] [address] [place] [address], [place] UNIT RH 1 Positive Normal [facility] Comment on above: Order Comment: Other Performed By: #### 8 6002 #### [facility] [address] [place] [address], [place] UNIT RH 2 Positive Normal [facility] Comment on above: Order Comment: Other Performed By: #### 8 6002 #### [facility] [address] [place] [address], [facility] TYPE AND SCREENon 07-13-2018 ABO INTERPRETATION O Normal [facility] Comment on above: Performed By: #### 6 2586 #### [facility] [address] [place] [address], [place] RH INTERPRETATION Positive Normal [facility] Comment on above: Performed By: #### 6 2586 #### [facility] [address] [place] [address], [facility] Vital Signs Date Time Vital Sign Value Performing Clinician Faci lity 01-11-2024 14:39-0400 Body height 152.4 cm Wolfgang Chou PA-C Work Phone: [facility] 01-11-2024 14:39-0400 Body weight 60.78 kg Wolfgang Chou PA-C Work Phone: [facility] 07-18-2023 11:37-0400 Body height 152.4 cm Tony Combs MD Work Phone: [facility] 07-18-2023 11:37-0400 Body weight 62.14 kg Tony Combs MD Work Phone: [facility] 04-06-2019 12:11-0400 Body Temperature 98.1 [degF] [facility] 04-06-2019 12:11-0400 BP Diastolic 71 mm[Hg] [facility] 04-06-2019 12:11-0400 BP Systolic 148 mm[Hg] [facility] 04-06-2019 12:11-0400 Pulse (Heart Rate) 68 /min [facility] 04-06-2019 12:11-0400 Pulse Oximetry 98 % [facility] 04-06-2019 11:52-0400 Respiratory Rate 18 /min [facility] 04-06-2019 10:43-0400 Body weight 65.86 kg [facility] Encounters Encounter Date Encounter Type Care Provider Facility Start: 07-23-2024 End: 07-23-2024 ambulatory Lonny VASQUEZ Facility:[facility] Start: 07-23-2024 End: 07-23-2024 Patient encounter procedure Lonny VASQUEZ [facility] Start: 06-28-2024 ambulatory [facility] Facility: [facility] Start: 04-25-2024 End: 04-25-2024 ambulatory [facility] Facility:[facility] Start: 04-25-2024 End: 04-25-2024 Patient encounter procedure Wolfgang Chou PA-C Work Phone: Orthopaedics Comment on above: S/P reverse total sh oulder arthroplasty, left (Primary Dx) Start: 04-25-2024 End: 04-25-2024 Subsequent hospital visit by physician Meagan [facility] Work Phone: Radiology Comment on above: S/P reverse total sh oulder arthroplasty, left [Z96.612] Start: 01-11-2024 End: 01-11-2024 ambulatory [facility] Facility:[facility] Start: 01-11-2024 End: 01-11-2024 Patient encounter procedure Wolfgang Chou PA-C Work Phone: Orthopaedics Comment on above: S/P reverse total sh oulder arthroplasty, left (Primary Dx) Start: 01-11-2024 ambulatory [facility] Facility: [facility] Start: 01-11-2024 End: 01-11-2024 Subsequent hospital visit by physician Meagan [facility] Comment on above: S/P reverse total sh oulder arthroplasty, left [Z96.612] Start: 12-26-2023 End: 12-26-2023 ambulatory Romina Hallgren OTR/L Work Phone: [facility] Comment on above: Decreased range of m otion of left shoulder (Primary Dx); S/P reverse total shoulder arthroplasty, left; Nontraumatic complete tear of rotator cuff, left; Rotator cuff tear arthropathy of left shoulder Start: 12-19-2023 End: 12-19-2023 ambulatory Romina Hallgren OTR/L Work Phone: [facility] Comment on above: Decreased range of m otion of left shoulder (Primary Dx); S/P reverse total shoulder arthroplasty, left; Nontraumatic complete tear of rotator cuff, left; Rotator cuff tear arthropathy of left shoulder Start: 12-12-2023 End: 12-12-2023 ambulatory Romina Hallgren OTR/L Work Phone: [facility] Comment on above: Decreased range of m otion of left shoulder (Primary Dx); S/P reverse total shoulder arthroplasty, left; Nontraumatic complete tear of rotator cuff, left; Rotator cuff tear arthropathy of left shoulder Start: 12-05-2023 End: 12-05-2023 ambulatory Romina Hallgren OTR/L Work Phone: [facility] Comment on above: Decreased range of m otion of left shoulder (Primary Dx); S/P reverse total shoulder arthroplasty, left; Nontraumatic complete tear of rotator cuff, left; Rotator cuff tear arthropathy of left shoulder Start: 11-28-2023 End: 11-28-2023 ambulatory NONA MCKNIGHT Facility:[facility] Start: 11-21-2023 End: 11-21-2023 ambulatory Romina Hallgren OTR/L Work Phone: [facility] Comment on above: Decreased range of m otion of left shoulder (Primary Dx); S/P reverse total shoulder arthroplasty, left; Nontraumatic complete tear of rotator cuff, left; Rotator cuff tear arthropathy of left shoulder Start: 11-14-2023 End: 11-14-2023 ambulatory Romina Hallgren OTR/L Work Phone: [facility] Comment on above: Decreased range [...] Start: 11-09-2023 End: 11-09-2023 ambulatory NONA MCKNIGHT Facility:[facility] Start: 11-09-2023 End: 11-09-2023 Subsequent hospital visit by physician Meagan [facility] Work Phone: Radiology Comment on above: S/P [...] left shoulder Start: 10-30-2023 End: 10-30-2023 ambulatory TONY Cristian COMBS Facility:[facility] Start: 10-26-2023 End: 10-26-2023 ambulatory TONY COMBS Facility:[facility] Start: 10-24-2023 End: 10-24-2023 ambulatory WOLFGANG CHOU Facility:[facility] Start: 10-16-2023 End: 10-16-2023 ambulatory WOLFGANG CHOU Facility:[facility] Start: 10-12-2023 End: 10-12-2023 ambulatory WOLFGANG CHOU Facility:[facility] Start: 10-02-2023 End: 10-02-2023 ambulatory NONA MCKNIGHT Facility:[facility] Start: 09-29-2023 End: 09-30-2023 ambulatory WOLFGANG CHOU Facility:[facility] Start: 09-27-2023 End: 09-27-2023 ambulatory Nilam Garnica [facility] Start: 09-26-2023 ambulatory Nilam Garnica [facility]: [facility] Start: 09-15-2023 End: 09-15-2023 ambulatory TONY COMBS Facility:[facility] Start: 09-12-2023 Orders Only Tony mosley MD Work Phone: Orthopaedics Comment on above: Closed displaced fra cture of acromial process, unspecified laterality, sequela (Primary Dx); Status post reverse arthroplasty of left shoulder Start: 09-11-2023 End: 09-12-2023 ambulatory TONY COMBS Facility:[facility] Start: 09-07-2023 Encounter for other preprocedural examination NONA MCKNIGHT 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); Closed displaced fracture of acromial process, unspecified laterality, sequela; Nontraumatic complete tear of rotator cuff, left; Injury of tendon of long head of biceps, left, initial encounter; Contracture of shoulder, left Start: 08-01-2023 ambulatory TONY COMBS [facility] Start: 07-18-2023 End: 07-18-2023 ambulatory TONY COMBS Facility:[facility] Start: 07-18-2023 End: 07-18-2023 Patient encounter procedure [...] 07-18-2023 Subsequent hospital visit by physician [facility] Comment on above: Chronic right should [...] Start: 10-20-2020 End: 10-20-2020 Orders Only Ministerio Gross Work Phone: [facility] Start: 04-06-2019 End: 04-06-2019 Emergency department patient visit [facility] Start: 04-06-2019 End: 04-06-2019 Emergency department patient visit [facility] Work Phone: [facility] Emergency Department Comment on above: Acute non-recurrent frontal sinusitis (Primary Dx) Start: 11-01-2018 End: 11-02-2018 Patient encounter procedure LAURIE CARY Facility:[facility] Start: 10-01-2018 End: 10-02-2018 Patient encounter procedure LAURIE CARY Facility:[facility] Start: 08-24-2018 End: 08-25-2018 Patient encounter procedure LAURIETAVON TOWNSEND Facility:[facility] Start: 07-26-2018 End: 07-27-2018 Patient encounter procedure LAURIE TOWNSEND Facility:[facility] Start: 07-13-2018 End: 07-19-2018 Evaluation and management of inpatient NONA MCKNIGHT Facility:[facility] Procedures Date Procedure Procedure Detail Performing Clinician [...] Speci men Type: BLOOD SPECIMEN Ordering Facility: [facility] Address: [address] [place] [address] Performed By: #### T [id number] #### CC MAIN BLOOD BANK [facility] [id number] [facility] [id number] [place] [address] [place] Start: 04-06-2019 12 lead ECG Shell Hawkins Work Phone: Start: 04-06-2019 Basic metabolic 2000 panel - Serum or Plasma Shell Hawkins Work Phone: Start: 04-06-2019 Complete blood count with white cell differential, automated Shell Hawkins Work Phone: Start: 04-06-2019 Complete blood count with white cell differential, manual Shell Hawkins Work Phone: Start: 04-06-2019 LIGHT BLUE TOP Shell Velarde tlow Hawkins Work Phone: Start: 04-06-2019 LIGHT GREEN TOP Shell Mcneal stmira Hawkins Work Phone: Start: 04-06-2019 RAINBOW DRAW Shell Hawkins Work Phone: Start: 07-13-2018 Antibody screen LAURIE TOWNSEND Comment on above: Performed By: #### [id number] #### [facility] [address] Start: 07-13-2018 INSERTION OF INT FIX INTO R UP FEMUR, OPEN APPROACH ABIODUN EBHEIM Start: 03-22-2007 Colonoscopy Lonny MANCUSO Arthroplasty of knee Lonny VASQUEZ Closed fracture of h ip (disorder) Lonny VASQUEZ Elbow fracture - héctor sed (disorder) Lonny VASQUEZ Hysterectomy Lonny VASQUEZ Partial shoulder replacement Lonny VASQUEZ Plan of Treatment Date Care Activity Detail Author Start: 09-12-2026 Diabetes Screening Diabetes Screenin david [facility] Start: 04-27-2025 Diabetes Screening Diabetes Screenin g [facility] Start: 10-31-2024 End: 10-31-2024 Patient encounter procedure 10/31/2024 1:40 PM EST Office Visit Orthopaedics [id number] [place] [address] Wolfgang Chou PA-C [address] [place] [address] 6 Month Follow Up - left shoulder pain Orthopaedics Comment on above: 6 Month Follow Up - left shoulder pain Start: 05-26-2024 Influenza vaccination Influenza Vacc ine (#1) [facility] Start: 10-27-2023 Covid-19 Vaccine () Covid-19 Vaccine () [facility] Start: 09-25-2023 Advance Directive Discussion Advance Directive Discussion [facility] Start: 09-25-2023 Behavioral Health Screening Behavioral Health Screening [facility] Start: 09-25-2023 Depression Assessment Depression Ass essment [facility] Start: 09-25-2022 Advance Directive Discussion Advance Directive Discussion [facility] Start: 09-25-2022 Depression Assessment Depression Ass essment [facility] Start: 12-26-2010 Diabetes Screening Diabetes Screenin g [facility] Start: 2008 Bone Density Screening Bone Density Screening [facility] Start: 2008 Screening for osteoporosis Bone Density Screening [facility] Start: 2003 RSV Vaccine (1 - 1-d ose 60+ series) RSV Vaccine (1 - 1-dose 60+ series) [facility] Start: 1993 Shingrix Vaccine (1 of 2) Shingrix Vaccine (1 of 2) [facility] Start: 1962 Urine microalbumin profile DTaP,Tdap,Td Vaccine (1 - Tdap) [facility] Start: 1961 Annual PCP Team Career Resource Specialist yadi Disease Visit Annual PCP Team Chronic Disease Visit [facility] Start: 1961 Anxiety Screening Anxiety Screening [facility] Start: 1961 Depression Screening Depression Scre ening [facility] End: 08-16-[address]24 CT 3D POST PROCESSING CT 3D POST PROCESSING Radiology Routine Rotator cuff tear arthropathy of left shoulder 1 Occurrences starting 07/18/2023 until 08/16/2024 [facility] Work Phone: Comment on above: 1 Occurrences starti ng 07/18/2023 until 08/16/2024 CT SHOULDER WO IVCON LEFT CT SHOULDER WO IVCON LEFT Radiology Routine Rotator cuff tear arthropathy of left shoulder Ordered: 07/18/2023 [facility] Work Phone: Comment on above: Ordered: 07/18/2023 XR SHOULDER GENERAL 3V OR MORE AP/TRUE AP/OTHER RIGHT XR SHOULDER GENERAL 3V OR MORE AP/TRUE AP/OTHER RIGHT Radiology Routine Chronic right shoulder pain 07/18/2023 12:37 PM EDT [facility] Phone[facility] Immunizations Immunization Date Immunization Notes Care Provider Priti ayoub 06-26-2023 influenza virus vaccine, unspecified formulation Xr [place] Work Phone: [facility] 07-18-2022 SARS-CoV-2 (COVID-19 ) [id number] Lonny [employer] [facility] 06-24-2021 SARS-CoV-2 (COVID-19 ) mRNA BNT-162b2 [employer] [facility] Comment on above: Result Comment: 2023: [id number] 11-15-2020 SARS-CoV-2 (COVID-19 ) mRNA BNT-162b2 [employer] [facility] Comment on above: Result Comment: 2023: [id number] 10-25-2020 SARS-CoV-2 (COVID-19 ) mRNA BNT-162b2 vax [employer] [facility] Comment on above: Result Comment: 2023: [id number] Payers Date Payer Category Payer Unknown [id number] 2017 Medicare ANTHEM MANAGED M TIFFANY ANTHEM MEDIBLUE ESSENTIAL/PLUS/CONNECT/SNP O [id number] 2017- [id number] 2017 Medicare ANTHEM MANAGED M EDORI ANTHEM MEDIBLUE ESSENTIAL/PLUS/CONNECT/SNP O xxxxxxxxxxxx 2017- [id number] 1959 Unknown [id number] 1943 Unknown [id number] 1943 Unknown [id number] 1943 Unknown [id number] [id number] 1943 Unknown [id number] 1943 Unknown [id number] [id number] 1943 Unknown [id number] [id number] 1943 Unknown [id number] [id number] 1943 Unknown [id number] [id number] 1943 Unknown [id number] [id number] 1943 Unknown [id number] [id number] 1943 Unknown [id number] 1943 Unknown [id number] [id number] 1943 Unknown [id number] [id number] Medicare [id number] Social History Date Type Detail Facility [facility] ever [facility] Start: 1945 Sex Assigned At Not on file O [facility]al Start: 09-27-2023 Tobacco smoking stat [facility] Never smoked tobacco [facility] Start: 03-16-2015 End: 04-25-2024 Alcohol intake Current drinker of alcohol (finding) [facility] Start: 07-18-2023 History of Social function [facility] Start: 07-18-2023 Area Deprivation Index [facility] National Score (1-10 0), lower number is lower risk 86 [facility] Start: 11-09-2007 Alcohol Comment 1-2 glasses of wine with dinner most nights [facility] Start: 09-08-2023 Tobacco smoking stat [facility] Tobacco smoking consumption unknown [facility] Work Phone: Medical Equipment Procedure Code Equipment Code Equipment Origin al Text Equipment Identifier Dates Cement Simplex P Tobramycin Bone Full Dose Radiopaque Preblend Sterile - [id number] Start: 09-11-2023 Trabecular Metal Reverse Plus Shoulder Head 36mm 0deg [id number] Start: 09-11-2023 Liner 36mm 12d 6 5d Trabecular Metal Polyethylene H+6mm Shoulder Reverse - [id number] Start: 09-11-2023 Screw Ncb 4.5mm Protasul-64wf 30mm Bone Inverse Reverse Lock Sterile - [id number] Start: 09-11-2023 Wire Liz 1 .6mm Stainless Steel 5.5in Fixation Trocar Smooth Guide - [id number] Start: 09-11-2023 Cement Simplex P Tobramycin Bone Full Dose Radiopaque Preblend Sterile - [id number] Start: 09-11-2023 Trabecular Metal Reverse Plus Base Plate 15mm [id number] Start: 09-11-2023 Stem 12mm Trabec ular Metal Tivanium 130mm Humeral Reverse Sterile Shoulder - [id number] Start: 09-11-2023 Screw Ncb Anatom ical Shoulder 4.5mm Protasul-64wf 33mm Bone Inverse Reverse - [id number] Start: 09-11-2023 Wire Liz 1 .6mm Stainless Steel 5.5in Fixation Trocar Smooth Guide - [id number] Start: 09-11-2023 Clinical Notes 07-18-2023 to 04-25-2024 Wolfgang Chou PA-C - 04/25/2024 2:19 PM Wolfgang Mcnamara PA-C - 01/11/2024 3:42 PM EDTTammy Levy Tech - 01/11/2024 12:30 PM Romina Menjivar OTR/Cristopher - 12/26/2023 3:51 PM EDT Note Date & Type Note Facility 04-25-2024 History of Present illness Narrative Patient Name: QING FISCHER [facility] No: [id number] Date of Service: April 25, 2024 [facility] Established patient returns for interval follow-up [...] Father Hypertension Sister Coronary Artery Disease Sister [place] in 30s Anesthesia Problems No Family History PAST SURGICAL HISTORY 2007: EGD No date: OTHER ACCESSORY Comment: cervical cryotherapy , nml pap since then 1993: PUNCTURE ASPIRATION CYST BREAST Comment: x2, many [...] symptoms. This note was partially generated using [employer] voice recognition system and as such may contain grammatical or word errors Wolfgang Chou PA-C April 25, 2024 documented in this encounter [facility] 02-29-2024 Note HNO ID: [id number] Author: ROMINA DARNELL OTR/Cristopher Service: ? Author [...] range of motion when permitted by / BIJAN.-partially met 12/26/23 Patient/patient's spouse will demonstrate correct [...] scheduled additional follow-up appointments. Romina Darnell, OTR/L #[id number] [facility] 01-11-2024 Note HNO ID: [id number] Author: WOLFGANG CHOU PA-C Service: ? Author Type: Physician Care Provider Type: Progress Notes Filed: 01/11/2024 15:50 Note Text: Patient Name: QING FISCHER [facility] No: [id number] Date of Service: January 11, 2024 [facility] Patient returns for follow up approximately [...] sooner. This note was partially generated using [employer] recognition system and as such may contain grammatical or word errors Wolfgang Chou PA-C January 11, [address] [facility] 01-11-2024 History of Present illness Narrative Patient Name: QING FISCHER [facility] No: [id number] Date of Service: January 11, 2024 [facility] Patient returns for follow up [...] sooner. This note was partially generated using [employer] recognition system and as such may contain grammatical or word errors Wolfgang Chou PA-C January 11, 2024 documented in this encounter [facility] 01-11-2024 History of Present illness Narrative Radiology [...] PATIENT PRESENTS WITH AN IMPLANTABLE OR ATTACHED CARD CHECKER: No RADIOLOGY DEPARTMENT: General X-ray: Exam(s) Completed: Upper Extremity X-Ray(s): Shoulder, AP / TRUE AP left / PA Y-View PERIPHERAL IV DATA: Not applicable SIGNED BY: Aston Rodrigues January 11, 2024 2:28 PM documented in this encounter [facility] 01-11-2024 Note HNO ID: [id number] Author: TAMMY LEVY Tech Service: ? Author Type: Tobacco Weigher Type: Progress Notes Filed: 01/11/2024 14:29 Note [...] PATIENT PRESENTS WITH AN IMPLANTABLE OR ATTACHED CARD CHECKER: No RADIOLOGY DEPARTMENT: General X-ray: Exam(s) Completed: Upper Extremity X-Ray(s): Shoulder, AP / TRUE AP left / PA Y-View PERIPHERAL IV DATA: Not applicable SIGNED BY: Aston Rodrigues January 11, 2024 2:[address] [facility] 12-26-2023 Note HNO ID: [id number] Author: ROMINA DARNELL OTR/Cristopher Service: ? Author [...] Planned: 2 Planned Treatment Interventions: Therapeutic exercise (20361), Manual therapy (71444), Self-long term management (93995), Patient/Family/Caregiver Education PLAN FOR NEXT VISIT: pt [...] L Shoulder Exte (more content not included)... [facility] 12-26-2023 History of Present illness Narrative Episode [...] Planned: 2 Planned Treatment Interventions: Therapeutic exercise (80905), Manual therapy (68428), Self-long term management (51759), Patient/Family/Caregiver Education PLAN FOR NEXT VISIT: pt [...] Session Stop Time : 1540 RAHUL Olsen #[id number] documented in this encounter [facility] 12-19-2023 Note HNO ID: [id number] Author: ROMINA DARNELL OTR/L Service: ? Author [...] Session Stop Time : 1537 ELSY Olsen/Cristopher #[id number] [facility] 12-19-2023 History of Present illness Narrative Episode [...] Session Stop Time : 1537 RAHUL Olsen #[id number] documented in this encounter [facility] 12-12-2023 Note HNO ID: [id number] Author: ROMINA DARNELL OTR/L Service: ? Author [...] 1449 Session Stop Time : 1541 Romina ELSY Darnell/Cristpoher #[id number] [facility] 12-12-2023 History of Present illness Narrative Episode [...] Session Stop Time : 1541 RAHUL Olsen #[id number] documented in this encounter [facility] 12-05-2023 Note HNO ID: [id number] Author: ROMINA DARNELL OTR/L Service: ? Author [...] Session Stop Time : 1531 ELSY Olsen/Cristopher #[id number] [facility] 12-05-2023 History of Present illness Narrative Episode [...] Time (minutes): 40 Session Start Time : 1450 Session Stop Time : 153 RAHUL Olsen #[id number] documented in this encounter [facility] 11-28-2023 Note HNO ID: [id number] Author: ROMINA DARNELL OTR/Cristopher Service: ? Author [...] Session Stop Time : 1448 ELSY Olsen/Cristopher #[id number] [facility] 11-21-2023 Note HNO ID: [id number] Author: ROMINA DARNELL OTR/L Service: ? Author [...] Planned: 4 Planned Treatment Interventions: Therapeutic exercise (94079), Manual therapy (82601), Self-long term management (96718), Patient/Family/Caregiver Education PLAN FOR NEXT VISIT: continue [...] prior session while (more content not included)... [facility] 11-21-2023 History of Present illness Narrative Episode [...] Planned: 4 Planned Treatment Interventions: Therapeutic exercise (53438), Manual therapy (49568), Self-long term management (61379), Patient/Family/Caregiver Education PLAN FOR NEXT VISIT: continue [...] Session Stop Time : 1532 RAHUL Olsen #[id number] documented in this encounter [facility] 11-14-2023 Note HNO ID: [id number] Author: ROMINA DARNELL OTR/L Service: ? Author [...] Time : 1458 Session Stop Time : 154 ELSY Olsen/Cristopher #[id number] [facility] 11-14-2023 History of Present illness Narrative Episode Visit Count: 5 in 2023, 1 in 2022 Therapist That Will Accept/Oversee The Plan Of Care: ELSY Zarate/L Start of Care Date: 09/15/23 Onset Date: [...] : 1458 Session Stop Time : 1542 Romina Darnell OTR/Cristopher #[id number] documented in this encounter [facility] 11-09-2023 Note HNO ID: [id number] Author: WOLFGANG CHOU PA-C Service: ? Author Type: Physician Care Provider Type: Progress Notes Filed: 11/27/2023 13:57 Note Text: Patient Name: QING Sutton [facility] No: [id number] Date of Service: November 09, 2023 [facility] Postoperative patient presents for suture removal [...] symptoms. This note was partially generated using [employer] recognition system and as such may contain grammatical or word errors Wolfgang Chou PA-C November 09, [address] [facility] 11-09-2023 History of Present illness Narrative Patient Name: QING FISCHER [facility] No: [id number] Date of Service: November 09, 2023 [facility] Postoperative patient presents for suture removal [...] symptoms. This note was partially generated using [employer] recognition system and as such may contain grammatical or word errors Wolfgang Chou PA-C November 09, 2023 documented in this encounter [facility] 11-09-2023 History of Present illness Narrative Radiology [...] PATIENT PRESENTS WITH AN IMPLANTABLE OR ATTACHED CARD CHECKER: No RADIOLOGY DEPARTMENT: General X-ray: Exam(s) Completed: Upper Extremity X-Ray(s): Shoulder, AP / TRUE AP / SUPRA OUTLET left PERIPHERAL IV DATA: Not applicable SIGNED BY: RT Lili(R) November 09, 2023 10:22 AM documented in this encounter [facility] 11-09-2023 Note HNO ID: [id number] Author: MARLEEN CADET RT(R) Service: ? Author [...] PATIENT PRESENTS WITH AN IMPLANTABLE OR ATTACHED CARD CHECKER: No RADIOLOGY DEPARTMENT: General X-ray: Exam(s) Completed: Upper Extremity X-Ray(s): Shoulder, AP / TRUE AP / SUPRA OUTLET left PERIPHERAL IV DATA: Not applicable SIGNED BY: RT Lili(R) November 09, 2023 10:[address] [facility] 11-06-2023 Note HNO ID: [id number] Author: ROMINA DARNELL OTR/Cristopher Service: ? Author Type: Occupational Therapist Type: Progress Notes Filed: 11/06/2023 17:30 Note Text: Episode Visit Count: 4 Therapist That Will Accept/Oversee The Plan Of Care: Miladis LopezisacOLIVIAR/Cristopher Start of Care Date: 09/15/23 Onset Date: [...] Session Stop Time : 1456 Romina Darnell OTR/Cristopher #[id number] [facility] 11-06-2023 History of Present illness Narrative Episode [...] : 1404 Session Stop Time : 1456 ELSY Olsen/Cristopher #[id number] documented in this encounter [facility] 10-26-2023 Note HNO ID: [id number] Author: TONY COMBS MD Service: ? Author Type: Physician Type: Progress Notes Filed: 10/31/2023 13:19 Note Text: Patient Name: QING FISCHER [facility] No: [id number] Date of Service: October 24, 2023 [facility] Patient returns for follow up [...] likely Wed - for K wire removal [facility] local anaesthesia. Meanwhile, she is to remain [...] patient was offered a surgery/procedure at a [facility] facility. The surgeon/proceduralist and patient have discussed [...] the consent form. MD Brook Mark MD [facility] 10-24-2023 Note HNO ID: [id number] Author: WOLFGANG CHOU PA-C Service: ? Author Type: Physician Care Provider Type: Progress Notes Filed: 10/26/2023 09:09 Note Text: Patient Name: QING FISCHER [facility] No: [id number] Date of Service: October 24, 2023 [facility] Patient returns for follow up approximately 6 weeks status post Left shoulder reverse total Shoulder Arthroplasty, extensive capsular release, biceps tenodesis, open reduction internal fixation of acromion fracture 09/11/[address] Combs. She continues to be pleased with her progress utilizing phase 1 protocols with occupational therapy. Pain is reported as minimal rated 0/10. 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 This note was partially generated using [employer] voice recognition system and as such may contain grammatical or word errors Wolfgang Chou PA-C October 24, 2023 [facility] 10-16-2023 Note HNO ID: [id number] Author: ROMINA DARNELL OTR/L Service: ? Author [...] Planned: 4 Planned Treatment Interventions: Therapeutic exercise (12853), Manual therapy (51086), Self-long term management (60006), Patient/Family/Caregiver Education PLAN FOR NEXT VISIT: continue [...] half of resp (more content not included)... [facility] 10-12-2023 Note HNO ID: [id number] Author: ROMINA DARNELL OTR/L Service: ? Author [...] have pins protruding from posterior shoulder and PA-C was contacted via staff message. However, she [...] Session Stop Time : 1452 ELSY Olsen/Cristopher #[id number] [facility] 10-02-2023 Note HNO ID: [id number] Author: ROMINA DARNELL OTR/Cristopher Service: ? Author [...] : 1135 Session Stop Time : 1231 Romnia Darnell OTR/L #[id number] [facility] 09-29-2023 Note HNO ID: [id number] Author: WOLFGANG CHOU PA-C Service: ? Author Type: Physician Care Provider Type: Progress Notes Filed: 10/23/2023 23:33 Note Text: Patient Name: QING FISCHER [facility] No: [id number] Date of Service: September 29, 2023 [facility] Patient returns for follow up status [...] sooner. This note was partially generated using [employer] voice recognition system and as such may contain grammatical or word errors Wolfgang Chou PA-C September 29, 2023 [facility] 09-15-2023 Note HNO ID: [id number] Author: Miladis Robertson OTR/L Service: ? Author Type: Occupational Therapist Type: Progress Notes Filed: 09/15/2023 3:46 PM Note Text: Episode Visit Count: 1 Therapist That Will Accept/Oversee The Plan Of Care: Miladis Monsman, OTR/L Start of Care Date: 09/15/23 Onset Date: 09/11/23 Plan of Care Certification Date: 09/15/23 Next Certification Due Date: 12/14/23 Patient Identified by Name and Date of : Yes Rehab Precautions: Shoulder Precautions; Weight Bearing Status: Precaution/Activity Restriction Comments: No active shoulder motion; sling on multimedia author with the exception for prescribed OT exercises [...] Injury: Other: See comments (wear and tear) [facility] OCCUPATIONAL THERAPY EVALUATION [...] range of motion when permitted by / BIJAN. Patient/patient's spouse will demonstrate correct [...] Planned: 16 Planned Treatment Interventions: Therapeutic exercise (02000), Manual therapy (53444), Self-long term management (56197), Patient/Family/Caregiver Education (heat pack) PLAN FOR NEXT [...] Information: Prescription pre (more content not included)... [facility] 09-12-2023 Note HNO ID: [id number] Author: Juan Pope MD Service: Orthopaedic Surgery [...] Pope MD, PGY-2 Orthopaedic Surgery Personal cell/pager: [phone] Between 5PM to 7AM, on weekends or if urgent, please page the orthopaedic on-call resident at: [phone] ([phone]) for [facility] patients [id number] for [facility] patients [address] for [facility] patients [address] for [facility] patients [address] for [facility] patients [facility] 09-11-2023 Note HNO ID: [id number] Author: Floyd Ramos AA Service: ? Author Type: Line Patrolman Type: Anesthesia Procedure Notes Filed: 09/11/2023 1:11 [...] September 11, 2023 TIME: 1:11 PM CSN: [id number] [facility] 09-11-2023 Note HNO ID: [id number] Author: Sil Sanchez MD Service: Anesthesiology Author [...] September 11, 2023 TIME: 11:22 AM CSN: [id number] [facility] 08-29-2023 Note HNO ID: [id number] Author: Tony Combs MD Service: ? Author Type: Physician Type: Progress Notes Filed: 08/30/2023 2:03 PM Note Text: [facility] NOTE DEPARTMENT OF ORTHOPAEDICS Evaluation with Tony Combs Jr., M.D. Patient Name: QING FISCHER [facility] No: [id number] : 1945 Qing Fischer is a pleasant [...] patient was offered a surgery/procedure at a [facility] facility. The surgeon/proceduralist and patient have discussed [...] Combs MD Recorded by: Luis Barney MD [facility] 08-29-2023 History of Present illness Narrative [facility] NOTE DEPARTMENT OF ORTHOPAEDICS Evaluation with Tony Combs Jr., M.D. Patient Name: QING FISCHER [facility] No: [id number] : 1945 Qing Fischer is a pleasant [...] is fragmentation of the left acromion. Qing M Aalyiah is a pleasant and active 78 year [...] patient was offered a surgery/procedure at a [facility] facility. The surgeon/proceduralist and patient have discussed [...] Barney MD (scribe) documented in this encounter [facility] 08-01-2023 Note HNO ID: [id number] Author: Sina Coronado RT(R) Service: Radiology Author [...] RT Maxwell(R) August 01, 2023 12:37 PM [facility] 07-18-2023 Note HNO ID: [id number] Author: Tony Combs MD Service: ? Author Type: Physician Type: Progress Notes Filed: 07/22/2023 10:43 AM Note Text: [facility] NOTE DEPARTMENT OF ORTHOPAEDICS Evaluation with Tony Combs Jr., M.D. Patient Name: QING FISCHER [facility] No: [id number] : 1945 This is an active 78 [...] Artery Disease Father Coronary Artery Disease Sister [place] in 30s PAST SURGICAL HISTORY Procedure Laterality [...] been obtained. Recorded by: Barrington Freitas DO [facility] 07-18-2023 Note HNO ID: [id number] Author: Jennifer Hernandez RT(R) Service: Radiology Author [...] RT Shemar(R) July 18, 2023 12:38 PM [facility] 07-18-2023 Note HNO ID: [id number] Author: Diana Ayala RT(Angel) Service: Radiology Author Type: Tobacco Weigher Type: Progress Notes Filed: 07/18/2023 12:03 PM [...] IV DATA: Not applicable SIGNED BY: Diana Ayala RT(R) July 18, 2023 12:02 PM [facility] 07-18-2023 History of Present illness Narrative [facility] NOTE DEPARTMENT OF ORTHOPAEDICS Evaluation with Tony Combs Jr., M.D. Patient Name: QING [facility] No: [id number] : 1945 This is an active 78 [...] Artery Disease Father Coronary Artery Disease Sister [place] in 30s PAST SURGICAL HISTORY Procedure Laterality [...] Barrington Freitas DO documented in this encounter [facility] 07-18-2023 History of Present illness Narrative Radiology [...] 2023 12:38 PM documented in this encounter [facility] Evaluation + Plan note No data available for this section [facility] Evaluation note Diagnosis Pain Generalized pain Chronic right shoulder pain Pain in joint, shoulder region [facility] Diagnosis Rotator cuff tear arthropathy of left shoulder- Primary Chronic right shoulder pain Pain in joint, shoulder region Nontraumatic complete tear of rotator cuff, left Injury of tendon of long head of biceps, left, initial encounter Closed displaced fracture of acromial process, unspecified laterality, sequela [facility] Diagnosis Rotator cuff tear arthropathy of left shoulder- Primary Closed displaced fracture of acromial process, unspecified laterality, sequela Nontraumatic complete tear of rotator cuff, left Injury of tendon of long head of biceps, left, initial encounter Contracture of shoulder, left [facility]* Diagnosis Closed displaced fracture of acromial process, unspecified laterality, sequela- Primary Status post reverse arthroplasty of left shoulder documented in this encounter [facility]* Diagnosis Decreased range of motion of left shoulder- Primary S/P reverse total shoulder arthroplasty, 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, 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 documented in this encounter [facility] note* Diagnosis S/P reverse total shoulder arthroplasty, left documented in this encounter [facility]* Diagnosis Decreased range of motion of left shoulder- Primary S/P reverse total shoulder arthroplasty, 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, 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 documented in this encounter [facility] note* Diagnosis Decreased range of motion of left shoulder- Primary S/P reverse total shoulder arthroplasty, 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, 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 documented in this encounter [facility]* Diagnosis S/P reverse total shoulder arthroplasty, left- Primary Nontraumatic complete tear of rotator cuff, left Closed displaced fracture of acromial process, unspecified laterality, sequela documented in this encounter [facility]* Diagnosis Decreased range of motion of left shoulder- Primary S/P reverse total shoulder arthroplasty, 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, 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 documented in this encounter [facility]* Diagnosis S/P reverse total shoulder arthroplasty, left- Primary documented in this encounter [facility]* Diagnosis S/P reverse total shoulder arthroplasty, left documented in this encounter [facility] note* Diagnosis S/P reverse total shoulder arthroplasty, left documented in this encounter [facility]* Diagnosis Pre-op evaluation- Primary Preoperative examination, unspecified Hypothyroidism, unspecified type OAB (overactive bladder) Hypertonicity of bladder Gastroesophageal reflux disease without esophagitis Esophageal reflux S/P reverse total shoulder arthroplasty, left- Primary S/P reverse total shoulder arthroplasty, left documented in this encounter [facility] Discharge instructions No data available for this section [facility] No data available for this section [facility] Surgery [place] Reason for referral (narrative)* Diagnostic Procedure Only (Routine) - Closed Specialty Diagnoses / Procedures Referred By Ariel whelan Referred To Contact XR IMAGING Diagnoses Chronic right shoulder pain Procedures XR SHOULDER GENERAL 3V OR MORE AP/TRUE AP/OTHER RIGHT RADEX SHOULDER COMPLETE MINIM[place] [address] [place] [address] X[facility] Imaging [place] [address] Referral ID Status Reason Start Date Expiration Date V isits Requested Visits Authorized [id number] Closed Auto-Generate d Referral 07/18/2023 08/16/2024 1 1 * Consult, Test, Treat (Routine) - Pending Review Specialty Diagnoses / Procedures Referred By Ariel whelan Referred To Contact Diagnoses Rotator cuff tear arthropathy of left shoulder Procedures REFER TO PACC - PRE ANESTHESIA CONSULTATION CLINIC OFFICE/OUTPATIENT [facility] 60-[place] [address] [place] [address] Referral ID Status Reason Start Date Expiration Date Visits Requested Visits Authorized [id number] Pending Review PCP Requested Referral 3 07/17/2024 1 1 * MRI/CT (Routine) - Authorized Specialty Diagnoses / Procedures Referred By Ariel whelan Referred To Contact CT IMAGING Diagnoses Rotator cuff tear arthropathy of left shoulder Procedures CT SHOULDER WO IVCON LEFT CT UPPER EXTREMITY W/[place] [address] [facility] [address] [place] [address] Ct Imaging [place] [address] Referral ID Status Reason Start Date Expiration Date Visits Requested Visits Authorized [id number] Authorized Auto-Generat ed Referral 3 08/16/2024 1 1 [facility] for referral (narrative)* Diagnostic Procedure Only (Routine) - Closed Specialty Diagnoses / Procedures Referred By Contac t Referred To Contact XR IMAGING Diagnoses S/P reverse total shoulder arthroplasty, left Procedures XR SHOULDER GENERAL 3V OR MORE AP/TRUE AP/OTHER LEFT RADEX SHOULDER COMPLETE MINIMUM 2 VIEWS Wolfgang Chou PA-C [address] [place] [phone] [place] [address] Referral ID Status Reason Start Date Expiration Date V isits Requested Visits Authorized [id number] Closed Auto-Generate d Referral 11/08/2023 12/07/2024 1 1 [facility] for referral (narrative)* - Pending Review Specialty Diagnoses / Procedures Referred By Contac t Referred To Contact Diagnoses S/P reverse total shoulder arthroplasty, 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, left Closed displaced fracture of acromial process, unspecified laterality, sequela Procedures CONSULT TO DANCE COACH Wolfgang Chou PA-C [address] [place] [phone] Referral ID Status Reason Start Date Expiration Date V isits Requested Visits Authorized [id number] Pending Review 11/09/2023 02/07/2024 1 1 * Diagnostic Procedure Only (Routine) - Closed Specialty Diagnoses / Procedures Referred By Contac t Referred To Contact XR IMAGING Diagnoses S/P reverse total shoulder arthroplasty, left Procedures XR SHOULDER GENERAL 3V OR MORE AP/TRUE AP/OTHER LEFT RADEX SHOULDER COMPLETE MINIMUM 2 VIEWS Wolfgang Chou PA-C [address] [place] [phone] [place] [address] Referral ID Status Reason Start Date Expiration Date V isits Requested Visits Authorized [id number] Closed Auto-Generate d Referral 11/08/2023 12/07/2024 1 1 [facility] for referral (narrative)* Diagnostic Procedure Only (Routine) - Closed Specialty Diagnoses / Procedures Referred By Contac t Referred To Contact XR IMAGING Diagnoses S/P reverse total shoulder arthroplasty, left Procedures XR SHOULDER GENERAL 3V OR MORE AP/TRUE AP/OTHER LEFT RADEX SHOULDER COMPLETE MINIMUM 2 VIEWS Wolfgang Chou PA-C [address] [place] [address] [place] [address] Referral ID Status Reason Start Date Expiration Date V isits Requested Visits Authorized [id number] Closed Auto-Generate d Referral 01/10/2024 02/08/2025 1 1 [facility] for referral (narrative)* Diagnostic Procedure Only (Routine) - Closed Specialty Diagnoses / Procedures Referred By Contmaddy t Referred To Contact XR IMAGING Diagnoses S/P reverse total shoulder arthroplasty, left Procedures XR SHOULDER GENERAL 3V OR MORE AP/TRUE AP/OTHER LEFT RADEX SHOULDER COMPLETE MINIMUM 2 VIEWS Wolfgang Chou PA-C [address] [place] [phone] [place] [address] Referral ID Status Reason Start Date Expiration Date V isits Requested Visits Authorized [id number] Closed Auto-Generate d Referral 01/10/2024 02/08/2025 1 1 [facility] for referral (narrative)* Diagnostic Procedure Only (Routine) - Closed Specialty Diagnoses / Procedures Referred By Contmaddy t Referred To Contact XR IMAGING Diagnoses S/P reverse total shoulder arthroplasty, left Procedures XR SHOULDER GENERAL 3V OR MORE AP/TRUE AP/OTHER LEFT RADEX SHOULDER COMPLETE MINIMUM 2 VIEWS Wolfgang Chou PA-C [address] [place] [address] [place] [address] Referral ID Status Reason Start Date Expiration Date V isits Requested Visits Authorized [id number] Closed Auto-Generate d Referral 04/25/2024 05/22/2025 1 1 [facility] for referral (narrative)* Diagnostic Procedure Only (Routine) - Closed Specialty Diagnoses / Procedures Referred By Contac t Referred To Contact XR IMAGING Diagnoses S/P reverse total shoulder arthroplasty, left Procedures XR SHOULDER GENERAL 3V OR MORE AP/TRUE AP/OTHER LEFT RADEX SHOULDER COMPLETE MINIMUM 2 VIEWS Wolfgang Chuo PA-C [address] [place] [phone] Xr Imaging [facility] Referral ID Status Reason Start Date Expiration Date V isits Requested Visits Authorized [id number] Closed Auto-Generate d Referral 04/25/2024 05/22/2025 1 1 [facility] for visit Narrative* Diagnostic Procedure Only (Routine) - Closed Specialty Diagnoses / Procedures Referred By Contac t Referred To Contact XR IMAGING Diagnoses Pain Procedures XR SHOULDER GENERAL 3V OR MORE AP/TRUE AP/OTHER LEFT RADEX SHOULDER COMPLETE MINIMUM 2 VIEWS Leeann Mcgee MD [address] [place] [phone] Xr Imaging [facility] Referral ID Status Reason Start Date Expiration Date V isits Requested Visits Authorized [id number] Closed Auto-Generate d Referral 06/08/2023 07/07/2024 1 1 [facility] for visit Narrative* Diagnostic Procedure Only (Routine) - Closed Specialty Diagnoses / Procedures Referred By Contac t Referred To Contact XR IMAGING Diagnoses S/P reverse total shoulder arthroplasty, left Procedures XR SHOULDER GENERAL 3V OR MORE AP/TRUE AP/OTHER LEFT RADEX SHOULDER COMPLETE MINIMUM 2 VIEWS Wolfgang Chou PA-C [address] [place] [phone] Xr Imaging [facility] Referral ID Status Reason Start Date Expiration Date V isits Requested Visits Authorized [id number] Closed Auto-Generate d Referral 11/08/2023 12/07/2024 1 1 [facility] for visit Narrative* Diagnostic Procedure Only (Routine) - Closed Specialty Diagnoses / Procedures Referred By Contac t Referred To Contact XR IMAGING Diagnoses S/P reverse total shoulder arthroplasty, left Procedures XR SHOULDER GENERAL 3V OR MORE AP/TRUE AP/OTHER LEFT RADEX SHOULDER COMPLETE MINIMUM 2 VIEWS Wolfgang Chou PA-C [address] [place] [address] [place] [address] Referral ID Status Reason Start Date Expiration Date V isits Requested Visits Authorized [id number] Closed Auto-Generate d Referral 04/25/2024 05/22/2025 1 1 [facility] Summary Purpose Family History No Family History Records FoundNo Family History Records FoundNo Family History Records FoundNo Family History Records FoundNo Family History Records FoundNo Family History Records FoundNo Family History Records Found No data available for this section No Family History Records Found Advance Directives No Advanced Directives Records FoundDocuments on File Type Date Recorded Patient Horologist Apprentice Expl anation Advance Directives and Livin g [...] With: Patient Hospital Course Note MR#: [id number] [facility] Pt. Name: Qing Fischer Admitted: 07/13/2018 [...] be sent through Care Everywhere. * Sinusitis (Georgian) documented in this encounter Assessments Diagnosis Acute non-recurrent frontal sinusitis- Primary Reason for Referral Specialty Diagnoses / Procedures Referred By Ariel whelan Referred To Contact Diagnoses Rotator cuff tear arthropathy of left shoulder Procedures REFER TO PACC - PRE ANESTHESIA CONSULTATION CLINIC OFFICE/OUTPATIENT [facility] 60-[place] [address] [address] [place], [place] [id number] Referral ID Status Reason Start Date Expiration Date Visits Requested Visits Authorized [id number] Pending Review PCP Requested Referral 08/29/2023 08/28/2024 1 1 Specialty Diagnoses / Procedures Referred By Ariel whelan Referred To Contact [facility] Diagnoses Closed displaced fracture of acromial process, unspecified laterality, sequela Status post reverse arthroplasty of left shoulder Procedures CONSULT TO DANCE COACH [facility] [place] [address] [address] [place] [address] [facility] [address] [place], [place] [id number] Referral ID Status Reason Start Date Expiration Date Visits Requested Visits Authorized [id number] Pending Review Auto-Generat ed Referral 3 09/11/2024 1 1 Additional Source Comments INFORMATION SOURCE (unrecogn ized section and content) DATE CREATED AUTHOR 11/14/2018 [facility] DATE CREATED AUTHOR AUTHOR'S ORGANIZ ATION 05/19/2019 [facility] DATE CREATED AUTHOR AUTHOR'S ORGANIZ ATION 05/02/2021 [facility] DATE CREATED AUTHOR AUTHOR'S ORGANIZ ATION 05/24/2022 [facility] DATE CREATED AUTHOR AUTHOR'S ORGANIZ ATION 02/09/2023 [facility] DATE CREATED AUTHOR AUTHOR'S ORGANIZ ATION 02/12/2024 [facility] DATE CREATED AUTHOR AUTHOR'S ORGANIZ ATION 04/28/[address] [facility] DATE CREATED AUTHOR AUTHOR'S ORGANIZ ATION 07/25/2024 [facility] Reason for Visit (unrecogniz ed section and content) Reason Comments OT Progress Note Specialty Diagnoses / Procedures Referred By Contac t Referred To Contact Diagnoses 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, 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, left Procedures CONSULT TO DANCE COACH Wolfgang Chou PA-C [address] [place] [address] [facility] [address] [place] [address] Referral ID Status Reason Start Date Expiration Date V isits Requested Visits Authorized [id number] Authorized 09/25/2023 09/24/2024 20 20 Reason Comments [...] COMPLETE MINIMUM 2 VIEWS Wolfgang Chou PA-C [address] [facility] [address] Xr Imaging [place] [address] Referral ID Status Reason Start Date Expiration Date V isits Requested Visits Authorized [id number] Closed Auto-Generate d Referral 01/10/2024 02/08/2025 1 [...] Associated Order(s): EKG 12-lead ED PROVIDER NOTE [facility] NAME: Qing Fischer AGE: 73 y.o. : 1945 VISIT DATE: 04/06/2019 CSN: [id number] PCP: Nona Mcknight MD Chief Complaint Patient [...] file Gets together: Not on file Attends uatsdin service: Not on file Active member of [...] 1. Nona Mcknight MD. Specialty: Family Medicine [address] [place], [place] [id number] Contact information for after-discharge care Follow-up information [...] States that she is currently here in [facility] for the past four days. documented in this encounter Source Comments (unrecognize d section and content) In the event this informatio n is protected by the Federal Confidentiality of Alcohol and Drug Abuse Patient Records regulations: The Federal rules restrict any use of the information to criminally investigate or prosecute any alcohol or drug abuse patient.[facility] the event this information is protected by the Federal Confidentiality of Alcohol and Drug Abuse Patient Records regulations: The Federal rules restrict any use of the information to criminally investigate or prosecute any alcohol or drug abuse patient.[facility] the event this information is protected by the Federal Confidentiality of Alcohol and Drug Abuse Patient Records regulations: The Federal rules restrict any use of the information to criminally investigate or prosecute any alcohol or drug abuse patient.[facility] the event this information is protected by the Federal Confidentiality of Alcohol and Drug Abuse Patient Records regulations: The Federal rules restrict any use of the information to criminally investigate or prosecute any alcohol or drug abuse patient.[facility] the event this information is protected by the Federal Confidentiality of Alcohol and Drug Abuse Patient Records regulations: The Federal rules restrict any use of the information to criminally investigate or prosecute any alcohol or drug abuse patient.[facility] the event this information is protected by the Federal Confidentiality of Alcohol and Drug Abuse Patient Records regulations: The Federal rules restrict any use of the information to criminally investigate or prosecute any alcohol or drug abuse patient.[facility] the event this information is protected by the Federal Confidentiality of Alcohol and Drug Abuse Patient Records regulations: The Federal rules restrict any use of the information to criminally investigate or prosecute any alcohol or drug abuse patient.[facility] the event this information is protected by the Federal Confidentiality of Alcohol and Drug Abuse Patient Records regulations: The Federal rules restrict any use of the information to criminally investigate or prosecute any alcohol or drug abuse patient.[facility] the event this information is protected by the Federal Confidentiality of Alcohol and Drug Abuse Patient Records regulations: The Federal rules restrict any use of the information to criminally investigate or prosecute any alcohol or drug abuse patient.[facility] the event this information is protected by the Federal Confidentiality of Alcohol and Drug Abuse Patient Records regulations: The Federal rules restrict any use of the information to criminally investigate or prosecute any alcohol or drug abuse patient.[facility] the event this information is protected by the Federal Confidentiality of Alcohol and Drug Abuse Patient Records regulations: The Federal rules restrict any use of the information to criminally investigate or prosecute any alcohol or drug abuse patient.[facility] Health[facility] the event this information is protected by the Federal Confidentiality of Alcohol and Drug Abuse Patient Records regulations: The Federal rules restrict any use of the information to criminally investigate or prosecute any alcohol or drug abuse patient.[facility] the event this information is protected by the Federal Confidentiality of Alcohol and Drug Abuse Patient Records regulations: The Federal rules restrict any use of the information to criminally investigate or prosecute any alcohol or drug abuse patient.[facility] the event this information is protected by the Federal Confidentiality of Alcohol and Drug Abuse Patient Records regulations: The Federal rules restrict any use of the information to criminally investigate or prosecute any alcohol or drug abuse patient.[facility] the event this information is protected by the Federal Confidentiality of Alcohol and Drug Abuse Patient Records regulations: The Federal rules restrict any use of the information to criminally investigate or prosecute any alcohol or drug abuse patient.[facility] Health[facility] the event this information is protected by the Federal Confidentiality of Alcohol and Drug Abuse Patient Records regulations: The Federal rules restrict any use of the information to criminally investigate or prosecute any alcohol or drug abuse patient.[facility] the event this information is protected by the Federal Confidentiality of Alcohol and Drug Abuse Patient Records regulations: The Federal rules restrict any use of the information to criminally investigate or prosecute any alcohol or drug abuse patient.[facility] Care Teams (unrecognized sec tion and content) Fundraising Officer Relationship Specialty Start Date End Date Nona Mcknight MD [address] [place] [address] PCP - General 12/11/07 Fundraising Officer Relationship Specialty Start Date End Date Nona Mcknight MD [address] [place] [address] PCP - General 12/11/07 Fundraising Officer Relationship Specialty Start Date End Date Nona Mcknight MD [address] [place] [address] PCP - General 12/11/07 Fundraising Officer Relationship Specialty Start Date End Date Nona Mcknight MD [address] [place] [address] PCP - General 12/11/07 Fundraising Officer Relationship Specialty Start Date End Date Nona Mcknight MD [address] [place] [address] PCP - General 12/11/07 Fundraising Officer Relationship Specialty Start Date End Date Nona Mcknight MD [address] [place] [phone] PCP - General 12/11/07 Fundraising Officer Relationship Specialty Start Date End Date Nona Mcknight MD [address] [place] [address] PCP - General 12/11/07 Fundraising Officer Relationship Specialty Start Date End Date Nona Mcknight MD [address] [place] [phone] PCP - General 12/11/07 Fundraising Officer Relationship Specialty Start Date End Date Nona Mcknight MD [address] [phone] PCP - General 12/11/07 Fundraising Officer Relationship Specialty Start Date End Date Nona Mcknight MD [address] [place] [phone] PCP - General 12/11/07 Fundraising Officer Relationship Specialty Start Date End Date Nona Mcknight MD [address] [place] [phone] PCP - General 12/11/07 Fundraising Officer Relationship Specialty Start Date End Date Nona Mcknight MD [address] [phone] PCP - General 12/11/07 Fundraising Officer Relationship Specialty Start Date End Date Nona Mcknight MD [address] [place] [address] PCP - General 12/11/07 Fundraising Officer Relationship Specialty Start Date End Date Nona Mcknight MD [facility] [place] [phone] PCP - General 12/11/07 Fundraising Officer Relationship Specialty Start Date End Date Nona Mcknight MD [facility] [place] [address] PCP - General 12/11/07 FOR RECORDS PERTAINING [...] BE BASED ON THE PRIMARY CLINICAL RECORDS. [facility]. provides no warranty or guarantee of the accuracy or completeness of information in this document.
[2025-06-04 15:01] LABS: Glucose Urine UA NEGATIVE (NEGATIVE)
[2025-06-04 15:15] LABS: Cast Seen? NONE SEEN #/LPF (NONE SEEN); Crystals Seen? None Seen #/HPF (None Seen); Urine Culture Indicated NO
== END 2025-06-04 12:24 | disposition home or self-care (01) ==
LOC: LAB 12:24
PROVIDERS: PCP Family Medicine; Visit Provider Family Medicine
DX: N32.89 Other specified disorders of bladder (principal)
CPT/HCPCS: 81001; 87086

== ENCOUNTER 2025-07-09 11:48 | Outpatient (OUT) | payer MEDICARE, SELFPAY ==
--- OUTSIDE RECORDS SUMMARY | 2025-02-03 09:50 | XMS_ITS ---
Author Organization [facility] Address [address] [place] [address] Care Team Providers Care Embedded Hardware Engineer Name Role Phone Nash Marcial Primary Care Provider Mc Simmons Unavailable [phone] REASON FOR VISIT RIGHT SHOULDER PAIN Problems Problem Type SNOMED Code ICD Code Onset Dates Problem Status W/U Status Risk Notes Problem [id number] Pain, joint, shoulder, right (M25.511) Active confirmed Encounters Encounter Location Date Provider Diagnosis [facility] [address] [place] [address] 02/03/2025 Mc Rojas Pain, joint, shoulder, right M25.511 Assessments Encounter Date Diagnosis (ICD Code) Assessment Notes Treatment Notes Treatment Clinical Notes Section Notes 02/03/2025 Pain, joint, shoulder, right (ICD-10 - M25.511) Plan Of Treatment Pending Test Test Name Order Date SCC- SHOULDER 3 VIEW RIGHT 14691 025 Progress Notes * GOMEZ FISCHER MDOB:[birth year] (80 yo F)Acc No.[id number]:02/03/2025 Patient: Shannon GOMEZ OLIVARES Provider: Liseth Rojas DO :1945 A ge:79 Y S ex:Female Date:02/03/2025 Address:[address] [place] [address] [facility] [phone] Pcp:Nash Marcial Subjective: * Chief Complaints: * 1 . RIGHT SHOULDER PAIN. * Medical History: Objective: * Vitals: Assessment: * Assessment: 1. P ain, joint, shoulder, right - M25.511 (Primary) Plan: * Treatment: * Procedure Codes: 7 3030 X-ray Shoulder, 2 or more view Forms: * Images: * Electronic signature of Brigitte Rojas DO on 07/09/2025 at 11:52 AM EDT Sign off status: Pending * Provider: Liseth Rojas DO Date: 0 02/03/2025 Generated for Alcides thompson/Laila/Evangelista on: 1 11:52 AM EDT
--- OUTSIDE RECORDS SUMMARY | 2025-07-09 04:28 | XMS_ITS ---
Author Organization The [facility] in [place] Address [address] [place] [address] Care Team Providers Care Fermentation Manager Name Role Phone Siva Marcial Primary Care Provider REASON FOR VISIT Yearly Labs Problems Problem Type SNOMED Code ICD Code Onset Dates Problem Status W/U Status Risk Notes Problem hypercholesterolemia (disorder) (89690796) Hypercholesteremia (E78.00) Active confirmed Encounters Encounter Location Date Provider Diagnosis [facility] [address] [place] [address] 07/09/2025 Siva Marcial Diabetes mellitus ty pe 2, noninsulin dependent E11.9 ; Iron deficiency E61.1 ; Fatigue R53.83 ; Screening for colon cancer Z12.11 and Hypercholesteremia E78.00 Assessments Encounter Date Diagnosis (ICD Code) Assessment Notes Treatment Notes Treatment Clinical Notes Section Notes 07/09/2025 Diabetes mellitus ty pe 2, noninsulin dependent (ICD-10 - E11.9) 07/09/2025 Iron deficiency (ICD-10 - E61.1) 07/09/2025 Fatigue (ICD-10 - R53.83) 07/09/2025 Screening for colon cancer (ICD-10 - Z12.11) 07/09/2025 Hypercholesteremia (ICD-10 - E78.00) Plan Of Treatment Pending Test Test Name Order Date FECAL OCCULT BLOOD 07/09/2025 CBC AUTO DIFF 07/09/2025 GLYCOHEMOGLOBIN A1C 07/09/2025 LIPID PROFILE 07/09/2025 PROF 14(COMP METB) 07/09/2025 THYROID PANEL (T4/TSH/FREE T3) Progress Notes * Qing JARA MDOB:[birth year] (80 yo F)Acc No.[id number]:07/09/2025 Patient: Qing RDZ :1945 A ge:80 Y S ex:Female Address:[address] [place] [phone] Subjective: * Chief Complaints: * Y early Labs * Medical History: * Surgical History: * Hospitalization/Major Diagno stic Procedure: * Medications: Objective: * Vitals: * Physical Examination: Assessment: * Assessment: 1. D iabetes mellitus type 2, noninsulin dependent - E11.9 (Primary) 2 . I lydia deficiency - E61.1 3 . F atigue - R53.83 4 . S creening for colon cancer - Z12.11 5 . H ypercholesteremia - E78.00 Plan: * Treatment: 2. I lydia deficiency L AB: CBC AUTO DIFF 3. F atigue L AB: CBC AUTO DIFF L AB: PROF 14(COMP METB) L AB: THYROID PANEL (T4/TSH/FREE T3) 4. S creening for colon cancer L AB: FECAL OCCULT BLOOD 5. H ypercholesteremia L AB: LIPID PROFILE * Procedure Codes: * true * Date: Generated for Alcides thompson/Laila/eTransmitting on: 1 11:52 AM EDT
--- OUTSIDE RECORDS SUMMARY | 2025-07-09 11:52 | XMS_ITS | Clinical Summary ---
Author Organization [employer] Address [id number] [address] [place] [address] Care Team Providers Care Microsoft Solutions Architect Name Role Phone Nash Marcial MD Primary Care Provider [phone] Allergies Active Allergy Reactions Criticality Noted Date Comments Amoxicillin Diarrhea Medium 08/09/2018 Codeine Flushing Low 08/09/2018 hot flash Nickel 10/24/2019 Skin irritation Penicillin Diarrhea Medium 08/09/2018 Sulfa (Sulfonamide Antibiotics) 08/09/2018 doesnt remember reaction Medications HYDROcodone-tiffany taminophen (NORCO) 5-325 mg per tablet Take 1 tablet by mouth every 6 (six) hours as needed for pain. Active mirabegron (MYRBETRIQ) 25 mg tablet extended release 24 hr Take 25 mg by mouth daily. Active cholecalciferol , vitamin D3, (VITAMIN D3) 2,000 units capsule Take 2,000 Units by mouth daily. Active ascorbic acid, vitamin C, (ascorbic acid with victorina hips) 500 mg tablet Take 500 mg by mouth daily. Active ubidecarenone (CO Q-10 ORAL) Take 1 capsule by mouth daily. Active calcium carbonate (TUMS) 200 mg (500 mg) chewable tablet Chew 1 tablet and swallow as needed for indigestion. Active Lactobacillus rhamnosus GG (CULTURELLE ORAL) Take 1 capsule by mouth daily. Active omega 1-orc-osw-fish oil (FISH OIL) 1,600-500-800 mg/5 mL liquid Take 5 mL by mouth daily. Active omeprazole (PriLOSEC) 40 mg capsule Take 40 mg by mouth daily. Active docusate sodium (COLACE) 100 mg capsule Take 100 mg by mouth daily. Active ibuprofen (ADVIL,MOTRIN) 200 mg tablet Take 200 mg by mouth every 6 (six) hours as needed for pain. Active aspirin 325 mg tablet Take 325 mg by mouth daily. Active pantoprazole (PROTONIX) 20 mg EC tablet Take 20 mg by mouth daily. Active acetaminophen (TYLENOL) 500 mg tablet Take 500 mg by mouth every 6 (six) hours as needed for pain. Active niacin 100 mg tablet Take by mouth daily with breakfast. Active turmeric 400 mg capsule Take 450 mg by mouth. Active biotin 10,000 mcg capsule Take 10,000 mcg by mouth. Active grape seed extract (GRAPE SEED ORAL) Take by mouth. Acti ve glucosamine/cho ndr tabares A sod (OSTEO BI-FLEX ORAL) Take by mouth. Activ e multivit/iron/F A/K/herb no.244 (ALIVE WOMEN'S ENERGY ORAL) Take by mouth. Ac tive NON FORMULARY prolia injection every 6 months. Last dose July 2019 Active methylPREDNISol one (MEDROL DOSEPACK) 4 mg tablet follow package directions 21 tablet 0 Active Active Problems Problem Noted Date Diagnosed Date Lumbosacral spondylosis without myelopathy 10/24 Overview (10/24/2019): Added automatically from request for surgery [id number] Family History Relation Name Status Comments Father Mother Social History Tobacco Use Types Packs/Day Years Used Date Smoking Tobacco: Never Smokeless Tobacco: Never Alcohol Use Standard Drinks/Week Comments Yes 0 (1 standard drink = 0.6 oz pur e alcohol) socially Childcare Answer Date Recorded Childcare Unknown 03/06/2019 Employment Answer Date Recorded Employment Unknown 03/06/2019 Purpose - Life Answer Date Recorded Purpose and direction in life Unknown Comments No Sex and Gender Information Value Date Recorded Sex Assigned at Not on file Legal Sex Female 12:04 PM EDT Gender Identity Not on file Sexual Orientation Not on file Last Filed Vital Signs Vital Sign Reading Time Taken Comments Blood Pressure 102/71 11/29/2019 11:55 AM EST Pulse 75 11/29/2019 11:55 AM EST Temperature 36.9 C (98.5 F) 11/29/2019 11:16 AM EST Respiratory Rate 16 11/29/2019 11:55 AM EST Oxygen Saturation 97% 11/29/2019 11:55 AM EST Inhaled Oxygen Concentration - - Weight 65.8 kg (145 lb) 10/24/2019 2:08 PM EST Height 152.4 cm (5') 08/09/2018 11:07 AM EST Body Mass Index 28.32 08/09/2018 11:07 AM EST Plan of Treatment Health Maintenance Due Date Last Done Comments Depression Screening 1955 Tobacco Screening 1957 DTaP,Tdap and Td Vaccines (1 - Tdap) 1962 Zoster (Shingles) Vaccine (1 of 2) 1993 Fall Risk Screening 2008 Influenza Vaccine 05/26/2025 Medical Devices Not on file Insurance [employer] Care Teams Microsoft Solutions Architect Relationship Specialty Start Date End Date Nash Marcial MD PCP - General 08/08/18
--- OUTSIDE RECORDS SUMMARY | 2025-07-09 11:52 | XMS_ITS | Clinical Summary ---
Author Organization [facility] Address [address] [place], [place] [id number] Care Team Providers Care General Office Associate Name Role Phone Nash Marcial MD Primary Care Provider [phone] Allergies Active Allergy Reactions Criticality Noted Date Comments Amoxicillin 04/06/2019 Rash Codeine 04/06/2019 hot Medications azithromycin (ZITHROMAX) 250 MG tablet Two at first, then one daily . 6 tablet 04/06/2019 Active Social History Tobacco Use Types Packs/Day Years Used Date Smoking Tobacco: Never Assessed Comments No Sex and Gender Information Value Date Recorded Sex Assigned at Not on file Legal Sex Female 10:37 AM EDT Gender Identity Not on file Sexual Orientation Straight 04/06/2019 10 :42 AM EDT Last Filed Vital Signs Vital Sign Reading Time Taken Comments Blood Pressure 148/71 04/06/2019 12:11 PM EDT Pulse 68 04/06/2019 12:11 PM EDT Temperature 36.7 C (98.1 F) 04/06/2019 12:11 PM EDT Respiratory Rate 18 04/06/2019 11:52 AM EDT Oxygen Saturation 98% 04/06/2019 12:11 PM EDT Inhaled Oxygen Concentration - - Weight 65.9 kg (145 lb 3.2 oz) 04/06/2019 10:43 AM EDT Height - - Body Mass Index - - Plan of Treatment Not on file Insurance [employer] MEDIBLUE ESSENTIAL/PLUS/CONNECT/SNP HMO Care Teams General Office Associate Relationship Specialty Start Date End Date Nash Marcial MD [address] [place] [address] PCP - General Family Medicine 04/06/19
--- OUTSIDE RECORDS SUMMARY | 2025-07-09 11:52 | XMS_ITS | Patient Health Record ---
Author Organization [facility] [place] Address [address] [place] [address] Care Team Providers Care Souvenir Assembler Name Role Phone Siva Marcial Primary Care Provider [phone] Gabriella Cervantes Unavailable [phone] Allergies Allergen (clinical drug ingredient) Drug/Non Drug Allergy documented on EMR Reaction Allergy Type Onset Date Status amoxicillin Amoxicillin diarrhea, yeast Drug Allergy Active codeine Codeine hot flashes, near syncope Drug Allergy Active nickel Nickel rash Allergy Active Results Component Value Reference Range Notes UA (Urinalysis, Dipstix only - w/o micro) Reviewed date:06/04/2025 03:16:43 PM Interpretation: Performing Lab: Notes/Report: COLOR yellow Yellow - Josey - CLARITY clear Clear - Clear GLUCOSE - 0 - 133 MG/DL ALBUMIN - NEG - NEG MG/DL BILIRUBIN - NEG - NEG MG/DL SPECIFIC GRAVITY 1.010 1.001 - 1.035 KETONES - NEG - NEG MG/DL BLOOD, UR - PH, UR 5.0 5 - 9 UROBILNOGEN - 0.2 - 1 MG/DL NITRITE + NEG - NEG ESTERASE (LAMBERT) + NEG - NEG MG/DL UA RANDOM W or MICROSCOPIC Reviewed date:06/04/2025 03:20:05 PM Interpretation: Performing Lab: Notes/Report: [facility] , Color Urine LT. YELLOW YELLOW Clarity Urine CLEAR CLEAR Specific [place] Urine 1.010 1.005-1.025 pH Urine 7.0 5.0-9.0 Protein Urine NEGATIVE NEG/TRACE mg/dL Glucose Urine UA NEGATIVE NEGATIVE mg/dL Bilirubin Urine NEGATIVE NEGATIVE Ketones Urine NEGATIVE NEGATIVE mg/dL Blood Urine NEGATIVE NEGATIVE Nitrite Urine NEGATIVE NEGATIVE Urobilinogen Urine 0.2 0.2-1.0 EU/dL Leukocyte Esterase Urine SMALL NEGATIVE WBC Urine 0-2 NONE SEEN #/HPF RBC Urine 0-2 0-2 #/HPF Bacteria Urine TRACE NONE SEEN #/HPF Mucus Urine TRACE NONE SEEN Squamous Epithelial Cell Urine RARE NONE/RARE #/LPF Crystals Seen? None Seen None Seen #/HPF Cast Seen? NONE SEEN NONE SEEN #/LPF Urine Culture Indicated NO Performing Lab: see note ML - [facility] LB Urine Culture - [facility] Reviewed date:06/08/2025 12:58:00 PM Interpretation: Performing Lab: Notes/Report: [facility] , Urine Culture - [facility] See Below For Report Urine Culture - [facility] <9,000 colonies/ml mixed Urine Culture - [facility] bacterial skin contaminants Urine Culture - [facility] <9,000 colonies/ml mixed Urine Culture - [facility] 2 Days Urine Culture - [facility] <9,000 colonies/ml mixed Urine Culture - [facility] Urine Culture - [facility] <9,000 colonies/ml mixed Urine Culture - [facility] Testing performed a [facility] Urine Culture - [facility] <9,000 colonies/ml mixed Urine Culture - [facility] [address] [place] [address] Urine Culture - [facility] <9,000 colonies/ml mixed Performing Lab: see note ML - [facility] LB TSH Reviewed date:07/24/2024 07:34:35 PM Interpretation: Performing Lab: Notes/Report: [facility] , Thyroid Stimulating Hormone 0.735 0.358-3.740 uIU/mL Performing Lab: see note ML - [facility] LB T4 Reviewed date:07/24/2024 07:34:35 PM Interpretation: Performing Lab: Notes/Report: [facility] , T4 Thyroxine 9.30 4.80-13.90 ug/dL Performing Lab: see note ML - [facility] FREE T3 Reviewed date:07/24/2024 07:34:35 PM Interpretation: Performing Lab: Notes/Report: [facility] , Free T3 3.38 2.18-3.98 pg/mL Performing Lab: see note ML - [facility] LB UA DIP NONAUTO WO MICRO (810 02) - IN OFFICE Reviewed date:09/13/2024 02:24:54 PM Interpretation: Performing Lab: Notes/Report: COLOR light yellow CLARITY clear GLUCOSE neg BILIRUBIN neg KETONE neg SPECIFIC GRAVITY 1.010 BLOOD neg PH 5 PROTEIN neg UROBILINOGEN neg NITRITE neg LEUKOCYTE ESTERASE neg Reason For Referral No Information Medications Medication SIG (Take, Route, Frequency, Duration) Notes Start Date End Date Status Liothyronine Sodium 5 MCG 1 tablet on an empty stomach Orally Once a day; Duration: 90 days Active Vitamin C Active Macrobid 100 MG 1 capsule with food Orally every 12 hrs; Duration: 5 day(s) 05/19/2025 Active Levothyroxine Sodium 88 MCG TAKE 1 TABLE T BY MOUTH EVERY DAY; Duration: Active predniSONE 20 MG 2 tablets Orally Onc e a day; Duration: 5 days 05/19/2025 Active Cholecalciferol 50 MCG (2000 UT) 1 capsule Orally Once a day Active Myrbetriq 25 MG 1 tablet Orally Once a day; Duration: 30 days 06/09/2025 Active traMADol HCl 50 MG TAKE 1 TABLET BY ASA TH EVERY 6 HOURS NEEDED FOR PAIN FOR 7 DAYS; Duration: 7 12/19/2024 Active rOPINIRole HCl 1 MG TAKE 1 TABLET BY ASA TH 1 TO 3 HOURS BEFORE BEDTIME DAILY; Duration: Active Pantoprazole Sodium 40 MG TAKE 1 TABLET BY MOUTH EVERY DAY; Duration: 90 Active Macrobid 100 MG 1 capsule with food Orally every 12 hrs; Duration: 03/15/2024 Active Social History Tobacco Use: Social History Observation Description Date Details (start date - stop date) Never Smoker NA - NA Tobacco Use/Smoking Question Answer Notes Patient is a nonsmoker Alcohol Screen (Audit-C) Question Answer Notes Did you have a drink contain ing alcohol in the past year? Yes How often did you have 6 or more drinks on one occasion in the past year? Never (0 point) How many drinks did you have on a typical day when you were drinking in the past year? 1 or 2 drinks (0 point) How often did you have a dri nk containing alcohol in the past year? Less than monthly (1 point) Points 1 Interpretation Negative Tobacco Control (Standard) Question Answer Notes Tobacco use: Nonsmoker AUDIT-C (Standard) Question Answer Notes Did you have a drink containing alcohol in the p ast year? 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 Problem Primary osteoarthrit is (375472832) Unilateral primary osteoarthritis, right knee (M17.11) Active confirmed Problem Palpitations (59041393) Palpitations (R00.2) Active confirmed Problem Osteoarthritis (033338537) Osteoarthritis (M19.90) Active confirmed Problem Carotid bruit (871138283) Carotid bruit (R09.89) Active confirmed Problem Benign essential hypertension (3434305) Benign essential hypertension (I10) Active confirmed Problem Restless legs (96187117) RLS (restless legs syndrome) (G25.81) Active confirmed Problem Osteoporosis (88266029) Osteoporosis (M81.0) Active confirmed Problem Acquired hypothyroidism (507600031) Acquired hypothyroidism (E03.9) Active confirmed Problem Acute blood loss anemia (946545968) Acute blood loss anemia (D62) Active confirmed Problem Laboratory test resu lt abnormal (834771198) Abnormal laboratory test (R89.9) Active confirmed Problem Thrush (96040687) Thrush (B37.0) Active confirm ed Problem Seasonal allergic rhinitis (393835225) Allergic rhinitis, seasonal (J30.2) Active confirmed Problem Bladder spasm (825887902) Bladder spasm (N32.89) Active confirmed Problem Cervical radiculopat hy (10632987) Cervical radicular pain (M54.12) Active confirmed Problem Diverticular disease of colon (014070613) Colon, diverticulosis (K57.30) Active confirmed Problem Type II diabetes mellitus without complication (220529537) Diabetes mellitus type 2, noninsulin dependent (E11.9) Active confirmed Problem Heart murmur (49801718) Cardiac murmur (R01.1) Active confirmed Problem Fibrocystic breast changes (64337860) Fibrocystic breast disease (N60.19) Active confirmed Problem Gastro-esophageal reflux disease (812341316) Gastro-esophageal reflux disease (K21.9) Active confirmed Problem Shoulder impingement syndrome (488168470) Shoulder impingement syndrome (M75.40) Active confirmed Problem At risk for falls (810048838) At risk for falls (Z91.81) Active confirmed Problem Cervicovaginal cytology: Low grade squamous intraepithelial lesion (596266554) Pap smear abnormality of cervix with LGSIL (R87.612) Active confirmed Problem hypercholesterolemia (disorder) (93861140) Hypercholesteremia (E78.00) Active confirmed Problem Pure hypercholesterolemia (905827973) Pure hypercholesterolemi a, unspecified (E78.00) Active confirmed Problem Disorder of sacrum (29915470) Low back derangement syndrome (M53.86) Active confirmed Problem Chronic low back oma n (finding) (456810275) Chronic midline low back pain without sciatica (M54.50) Active confirmed Vital Signs Blood pressure diastolic 90 mm Hg 05/19/2025 Height 59 in 05/19/2025 Blood pressure systolic 160 mm Hg 05/19/2025 Weight 130.8 lbs 05/19/2025 BMI 26.42 kg/m2 05/19/2025 Encounters Encounter Location Date Provider Diagnosis [facility] [address] [place] [address] 05/19/2025 Siva Hoy Benign essential hypertension I10 ; Low back derangement syndrome M53.86 and Low back pain at multiple sites M54.50 [facility] [address] [place] [address] 09/13/2024 Siva Hoy Bladder spasm N32.89 [facility] [address] [place] [address] 07/24/2024 Gabriella Cervantes [facility] [address] [place] [address] 08/13/2024 Siva Humphreysy [facility] [address] [place] [address] 09/13/2024 Siva Humphreysy [facility] [address] [place] [address] 12/19/2024 Siva Humphreysy [facility] [address] [place] [address] 06/03/2025 Siva Hoy Bladder spasm N32.89 [facility] [address] [place] [address] 06/08/2025 Siva Humphreysy [facility] [address] [place] [address] 06/18/2025 Siva Marcial [facility] [address] [place] [address] 07/09/2025 Siva Marcial Diabetes mellitus ty pe 2, noninsulin dependent E11.9 ; Iron deficiency E61.1 ; Fatigue R53.83 ; Screening for colon cancer Z12.11 and Hypercholesteremia E78.00 Assessments Encounter Date Diagnosis (ICD Code) Assessment Notes Treatment Notes Treatment Clinical Notes Section Notes 09/13/2024 Bladder spasm (ICD-1 0 - N32.89) 05/19/2025 Benign essential hypertension (ICD-10 - I10) 05/19/2025 Low back derangement syndrome (ICD-10 - M53.86) 06/03/2025 Bladder spasm (ICD-1 0 - N32.89) 07/09/2025 Diabetes mellitus ty pe 2, noninsulin dependent (ICD-10 - E11.9) 07/09/2025 Iron deficiency (ICD-10 - E61.1) 07/09/2025 Fatigue (ICD-10 - R53.83) 05/19/2025 Low back pain at multiple sites (ICD-10 - M54.50) 07/09/2025 Screening for colon cancer (ICD-10 - Z12.11) 07/09/2025 Hypercholesteremia (ICD-10 - E78.00) Plan Of Treatment Pending Test Test Name Order Date CMP (COMPLETE METABOLIC PANEL) 3 CMP (COMPLETE METABOLIC PANEL) 4 UA (URINALYSIS, COMPLETE) 06/03/2025 HEMOGLOBIN A1C (GLYCO) 02/06/2023 IRON, TOTAL 02/06/2023 LIPID PANEL (CHOL/TRIG/HDL/LDL) 02/07/20 CBC WITH DIFF 02/06/2023 VITAMIN D, 25 LEVEL (TOTAL) 02/06/2023 T3 FREE, T4 FREE and TSH 06/25/2024 FECAL OCCULT BLOOD 07/09/2025 FECAL OCCULT BLOOD 06/25/2024 Insulin Level 02/06/2023 CBC W/AUTO DIFF 02/12/2024 STOOL OCCULT BLOOD 02/06/2023 CBC AUTO DIFF 07/09/2025 CULTURE URINE 03/17/2023 CULTURE URINE 06/03/2025 GLYCOHEMOGLOBIN A1C 07/09/2025 LIPID PROFILE 07/09/2025 PROF 14(COMP METB) 07/09/2025 UA RANDOM W or MICROSCOPIC 03/17/2023 THYROID PANEL (T4/TSH/FREE T3) 3 THYROID PANEL (T4/TSH/FREE T3) 4 THYROID PANEL (T4/TSH/FREE T3) 5 Insurance Providers Payer Name Payer Address Payer Phone Subscriber Number Group Number Insured Name Patient Relationship to Insured Coverage Start Date Coverage End Date [employer]AN [address] [place] [address] [phone] [id number] [facility] Qing Jara Self - patient is the insured 3 Medical (General) History Medical History History ICD Code Bladder spasm N32.89 Shoulder impingement syndrome M75.40 Palpitations R00.2 Chronic midline low back pain without sc iatica M54.50 Alopecia mucinosa L65.2 Benign essential hypertension I10 At risk for falls Z91.81 Osteoporosis M81.0 Gastro-esophageal reflux disease K21.9 Osteoarthritis M19.90 Diabetes mellitus type 2, noninsulin dep endent E11.9 Unilateral primary osteoarthritis, right knee M17.11 Colon, diverticulosis K57.30 Cardiac murmur R01.1 Carotid bruit R09.89 Allergic rhinitis, seasonal J30.2 Fibrocystic breast disease N60.19 Pap smear abnormality of cervix with LGS IL R87.612 Pure hypercholesterolemia, unspecified E 78.00 Surgical History Surgery Date(Month/Year) Rt. Hip fracture repair RTKA Revision of left elbow surgery Fracture left elbow with surgical repair 09/11/2023 hysterectomy Hospitalization History Reason Date(Month/Year) GI Bleed 2023
--- OUTSIDE RECORDS SUMMARY | 2025-07-09 11:52 | XMS_ITS | Clinical Summary ---
Author Organization [facility] Address [address] [place] [address] Care Team Providers Care Bakery Helper Name Role Phone Unavailable Primary Care Provider Unavailabl e Allergies Active Allergy Reactions Criticality Noted Date Comments Amoxicillin Diarrhea,Other,Rash Medium 09/12/2014 Rash Ciprofloxacin Unknown 04/02/2024 Codeine Other Medium 12/11/2007 Other Reaction(s): HOT FLASH, Mental Status Change hot hot flash Tylenol with codeine. Hot/ flushed. Nickel Rash Low 10/24/2019 Other Reaction(s): SKIN IRRITATION Skin irritation Penicillin G Diarrhea Medium 08/09/2018 Sulfa Antibiotics 04/02/2024 Medications cholecalciferol (Vitamin D-3) 50 MCG (1999 UT) capsule Take 2,000 Units by mouth in the morning. Active levothyroxine (Synthroid, Levoxyl) 88 MCG tablet Take 88 mcg by mouth Daily Active liothyronine (Cytomel) 5 MCG tablet Take 5 mcg by mouth Daily Active pantoprazole (ProtoNix) 40 MG EC tablet Take 40 mg by mouth Daily 01/29/2024 Active rOPINIRole (Requip) 1 MG tablet TAKE 1 TABLET BY MOUTH 1 TO 3 HOURS BEFORE BEDTIME DAILY 01/19/2024 Active Active Problems Problem Noted Date Diagnosed Date Age-related nuclear cataract of both eyes 2023 Biceps tendon tear, Left 06/08/2023 Rotator cuff insufficiency of left shoulder 05/26 Social History Tobacco Use Types Packs/Day Years Used Date Smoking Tobacco: Never Smokeless Tobacco: Never Tobacco Cessation:Counseling Given: Not Answered Comments Unknown Sex and Gender Information Value Date Recorded Sex Assigned at Not on file Legal Sex Female 7:31 PM EDT Gender Identity Not on file Sexual Orientation Not on file Last Filed Vital Signs Vital Sign Reading Time Taken Comments Blood Pressure 140/80 04/27/2022 12:00 PM EDT Pulse - - Temperature - - Respiratory Rate - - Oxygen Saturation - - Inhaled Oxygen Concentration - - Weight 62.6 kg (138 lb) 04/27/2022 12:00 PM EDT Height 152.4 cm (5') 02/28/2022 12:00 PM EDT Body Mass Index 26.95 02/28/2022 12:00 PM EDT Plan of Treatment Upcoming Encounters Date Type Department Care Team (Late st Contact Info) Description 12/02/2026 1:00 PM EST Telemedicine [facility] [address] [place] [address] Jr. Lyndon Thomason, DO [address] 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
--- OUTSIDE RECORDS SUMMARY | 2025-07-09 11:52 | XMS_ITS | Patient Health Record ---
Author Organization [facility] Address [address] [place] [address] Care Team Providers Care Steam Table Associate Name Role Phone Nash Marcial Primary Care Provider Mc Simmons Unavailable [phone] Reason For Referral No Information Problems Problem Type SNOMED Code ICD Code Onset Dates Problem Status W/U Status Risk Notes Problem [id number] Pain, joint, shoulder, right (M25.511) Active confirmed Plan Of Treatment No Information Insurance Providers Payer Name Payer Address Payer Phone Subscriber Number Group Number Insured Name Patient Relationship to Insured Coverage Start Date Coverage End Date Medicare [employer] [address] [place] [phone] [id number] [facility] GOMEZ FISCHER Self - patient is the insured 5
--- OUTSIDE RECORDS SUMMARY | 2025-07-09 11:52 | XMS_ITS | Clinical Summary ---
Author Organization [facility] Address [address] [place] [address] Phone Care Team Providers Care Installer Interior Assemblies Name Role Phone Unavailable Primary Care Provider Unavailabl e Social History Tobacco Use Types Packs/Day Years Used Date Smoking Tobacco: Never Assessed Comments Unknown Sex and Gender Information Value Date Recorded Sex Assigned at Not on file Legal Sex Female 2:40 AM EDT Gender Identity Not on file Sexual Orientation Not on file Plan of Treatment Not on file
--- OUTSIDE RECORDS SUMMARY | 2025-07-09 11:52 | XMS_ITS | Encounter Summary ---
Author Organization [facility] Address [address] [place] [address] Care Team Providers Care Publisher Assistant Name Role Phone Nash Marcial MD Primary Care Provider [phone] Source Comments In the event this information is protected by the Federal Confidentiality of Alcohol and Drug AbusePatient Records regulations: The Federal rules restrict any use of the information to criminally investigate or prosecute any alcohol or drug abuse patient.[facility] Encounter Details Date Type Department Care Team (Late st Contact Info) Description 10/10/2024 Patient [facility] [address] [place] [id number] Provider, [facility] Re Schedule Social History Tobacco Use Types Packs/Day Years Used Date Smoking Tobacco: Unknown Alcohol Use Standard Drinks/Week Comments Yes 0 (1 standard drink = 0.6 oz pure alcohol) 1-2 glasses of wine with dinner most nights Area Deprivation Index Answer Date Velasquez rded National Score (1-100), lower number is lower ri sk 86 07/18/2023 State Score (1-10), lower number is lower risk 8 07/18/2023 Data from: https://www.neighborhoodatlas.medicine.[facility].edu/. Last address used for calculation [address] 07/18/2023 Comments No Sex and Gender Information Value Date Recorded Sex Assigned at Not on file Legal Sex Female 8:11 AM EST Gender Identity Not on file Sexual Orientation Not on file documented as of this encounter Functional Status * Are you deaf or do you have serious difficulty hearing? Answer Date of Assessment Author No 09/12/2023 1:09 PM Shu Fu RN * Are you blind or do you have serious difficulty seeing, even when wearing glasses? Answer Date of Assessment Author No 09/12/2023 1:09 PM Shu Fu RN * Do you have serious difficulty walking or climbing stairs? Answer Date of Assessment Author No 09/12/2023 1:09 PM Shu Fu RN * Do you have difficulty dressing or bathing? Answer Date of Assessment Author No 09/12/2023 1:09 PM Shu Fu RN * Because of a physical, mental, or emotional condition, do you have difficulty doing errands alone such as visiting a doctor's office or shopping? Answer Date of Assessment Author No 09/12/2023 1:09 PM Shu Fu RN documented as of this encounter Mental Status * Because of a physical, mental, or emotional condition, do you have serious difficulty concentrating, remembering, or making decisions? Answer Entry Date Author No 09/12/2023 1:09 PM Shu uF RN documented in this encounter Plan of Treatment Not on file documented as of this encounter Visit Diagnoses Not on filedocumented in this encounter Care Teams Publisher Assistant Relationship Specialty Start Date End Date Nash Marcial MD [address] [place] [address] PCP - General 12/11/07 documented as of this encounter
--- OUTSIDE RECORDS SUMMARY | 2025-07-09 11:53 | XMS_ITS | CCD ---
Author Organization [facility] CliniSyma Care Team Providers Care Pug Mill Operator Name Role Phone RASHEED TOWNSENDORY Admitting Unavailable CARY, LAURIE Attending Unavailable HOY, NONA Referring Unavailable HOY, NONA Primary Care Unavailable CARY, LAURIE Admitting Unavailable CARY, LAURIE Attending Unavailable UNKNOWN, PHYSICIAN Referring Unavailable HOY, NNOA Primary Care Unavailable CARY, LAURIE Admitting Unavailable CARY, LAURIE Attending Unavailable SELF, REFERRED Referring Unavailable HOY, NONA Primary Care Unavailable CARY, LAURIE Admitting Unavailable CARY, LAURIE Attending Unavailable CARY, LAURIE Referring Unavailable HOY, NONA Primary Care Unavailable HOY, NONA Primary Care Unavailable EBHEIM, ABIODUN Attending Unavailable EBRAHEIM ABIODUN Admitting Unavailable CIARA GONZALEZ Referring Unavailable CT Procedure Practitioner Unavailab kaur EBRAHEIM, ABIODUN Surgeon Unavailable SHELL HAWKINS Attending [...] Unavailable ZIEBER, DR TA Ortiz Consulting Unavailable HOY ., DR CASTELLANO Primary Care Unavailable SILCOX, DR RICK Admitting Unavailable SILCOX, DR RICK Consulting Unavailable MISC, DR PRESTON Admitting Unavailable MISC, DR PRESTON Consulting Unavailable MISC, DR PRESTON Attending Unavailable PETRY ., DR CASTELLANO Primary Care Unavailable ZIEBER, DR TA Ortiz Consulting Unavailable Nona Mcknight MD Primary Care Provider [phone] Nona Mcknight MD Primary Care Provider [phone] TONY COMBS Admitting Unavailable TONY COMBS Attending Unavailable HOY, NOAN M Primary Care Unavailable WOLFGANG CHOU Attending Unavailable HOY, NONA M Primary Care Unavailable TONY COMBS Attending Unavailable HOY, NONA M Primary Care Unavailable TONY COMBS Referring Unavailable HOY, NONA M Primary Care Unavailable TONY COMBS Attending Unavailable HOY, NONA M Primary Care Unavailable HOY, NONA M Primary Care Unavailable JOSÉ ANTONIOWOLFGANG GOLDMAN P Attending Unavailable HOY, NONA M Primary Care Unavailable JOSÉ ANTONIOWOLFGANG GOLDMAN P Referring Unavailable HOY, NONA M Primary Care Unavailable TONY COMBS Referring Unavailable HOY, NONA M Primary Care Unavailable WOLFGANG CHOU Referring Unavailable HOY, NONA M Primary Care Unavailable TONY COMBS Admitting Unavailable TONY COMBS Attending Unavailable HOY, NONA M Primary Care Unavailable ALBINA ARZATE Consulting Unavailable Nona Mcknight MD Primary Care Provider [phone] HOY, NONA M Primary Care Unavailable WOLFGANG CHOU Referring Unavailable HALLGREN, ROMINA Attending Unavailable HOY, NONA M Primary Care Unavailable JOSÉ ANTONIO, WOLFGANG Referring Unavailable HALLGREN, ROMINA Attending Unavailable JOSÉ ANTONIO, WOLFGANG Referring Unavailable HALLGREN, ROMINA Attending Unavailable HOY, NONA M Primary Care Unavailable HOY, NONA M Primary Care Unavailable WOLFGANG CHOU Referring Unavailable HALLGREN, ROMINA Attending Unavailable JOSÉ ANTONIO, WOLFGANG Referring Unavailable HALLGREN, ROMINA Attending Unavailable HOY, NONA M Primary Care Unavailable HOY, NONA M Primary Care Unavailable HALLGREN, ROMINA Attending Unavailable WOLFGANG CHOU Referring Unavailable JOSÉ ANTONIO, WOLFGANG Referring Unavailable [...] CHOU Referring Unavailable ROMINA DARNELL Attending Unavailable Siva Mcknightlas Primary Care Physician Nilam Garnica Attending Unavailable Lonny VASQUEZ Attending Unavailable Nona Mcknight MD Attending Provider [phone] Nona Mcknight Attending Unavailable Nona Mcknight Admitting Unavailable Allergies Allergy Classification Reported Allergen(s) Allergy Type Date of Onset Reaction(s) Facility (5 sources) Amoxicillin; Translations: [Unknown] Drug Allergy 4 [facility] Repository (4 sources) Codeine; Translations: [CODEINE] Drug Allergy 8 [facility] Repository (1 source) Penicillins (Antibiotic) Drug allergy (disorder) 8 [facility] Repository (2 sources) Sulfonamides (Antibiotic) Drug allergy (disorder) 5 [facility] Repository (16 sources) Amoxicillin Drug Allergy 9 Rash [facility] (20 sources) Codeine; Translations: [codeine] Drug Allergy 8 Mental Status Change, Near syncope (disorder) [facility] (5 sources) Leucine; Translations: [NICKEL] Drug Allergy 0 The [facility] Repository (1 source) Penicillins Drug allergy (disorder) 4 [facility] Repository (1 source) Tylenol-Codeine #3 Drug allergy (disorder) 0 [facility] Repository (14 sources) nickel Drug Allergy 3 Rash [facility] (2 sources) Sulfonamides (Antibiotic); Translations: [sulfa drugs] Propensity to adverse reactions to drug [facility] Luda Medications Current Medications Medication Drug Class(es) Dates [...] on above: Take 2 tablets by mo ut once daily. calcium/mag oxide/vitamin d3(CORAL CALCIUM PLUS [...] Start: 10-04-2023 take 1 tablet by luis e once daily at bedtime rOPINIRole (REQUIP) 0.5 [...] on above: Take 1 capsule by mo [facility] three times a day for 7 days. [...] Overview: Added automatically from request for surgery [id number] Spondylosis; intervertebral disc disorders; other back problems [...] Test Name Value Interpretation Reference Range Facility Urine Cultureon 06-04-2025 Bacteria identified Cx Nom (U) <9,000 colonies/ml mixed bacterial skin contaminants 2 Days PERFORMED BY: [place] [address] PATHOLOGIST DRYING UNIT FELTING MACHINE OPERATOR JOHN LUCAS M.D. Normal [facility] Comment on above: Performed By: #### C UU #### [address] XR SHLDR >/=3V AP/JULIETA AP/OTH R LTon [...] are aortic calcifications. IMPRESSION: NO SIGNIFICANT CHANGE. Head Filter Press Tender: [employer] Transcribe Date/Time: Apr 25 2024 11:12P Dictated by : ADITI FERNANDEZ MD This examination was interpreted and the report reviewed and electronically signed by: ADITI FERNANDEZ MD on Apr 25 2024 11:16PM EST [id number] Normal [facility] XR Shoulder - left 3 Viewson 04-25-2024 IMPRESSION: NO SIGNIFICANT CHANGE. Head Filter Press Tender: [employer] Transcribe Date/Time: Apr 25 2024 11:12P Dictated [...] are aortic calcifications. DIVISION OF RADIOLOGY Provider, Jennifer Perry - 04/25/2024 * * *Final Report* * [...] aortic calcifications. IMPRESSION IMPRESSION: NO SIGNIFICANT CHANGE. Head Filter Press Tender: [employer] Transcribe Date/Time: Apr 25 2024 11:12P Dictated by : ADITI FERNANDEZ MD This examination was interpreted and the report reviewed and electronically signed by: ADITI FERNANDEZ MD on Apr 25 2024 11:16PM [facility] Radiology Study observation (narrative) [facility] XR Shoulder - left 3 ViewsOr dered By: Jennifer Provider on 04-25-2024 [facility] CNOVon 01-11-2024 CNOV Office Visit (ORTHMN ) QING FISCHER ([id number]) 1945 F Date Time Provider Department 01/11/24 1:40 PM WOLFGANG CHOU During your visit today, we recorded the following information about you: Weight Height 60.8 kg 1.524 m Wolfgang Chou PA-C 01/11/2024 3:50 PM Signed Patient Name: QING Sutton [facility] No: [id number] Date of Service: January 11, 2024 [facility] Patient returns for follow up [...] sooner. 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 Follow-up and Disposition History for Encounter Date Provider Department Center 01/11/2024 [id number] CHOU [facility] B[facility] Encounter Status:Closed by WOLFGANG CHOU on 01/11/24 Normal [facility] XR SHLDR >/=3V AP/JULIETA AP/OTH R LTon [...] shoulder arthroplasty with no fracture or osteolysis. Head Filter Press Tender: [facility] Transcribe Date/Time: Jan 11 2024 4:15P Dictated by : ERNESTINA WEAVER MD This examination was interpreted and the report reviewed and electronically signed by: ERNESTINA WEAVER MD on Jan 11 2024 4:18PM EST [id number] Normal [facility] XR Shoulder - left 3 Viewson 01-11-2024 [facility] [id number] 12-26-2023 [id number] HNO ID: [id number] Author: ROMINA DARNELL OTR/L Service: ? Author Type: Occupational Therapist Type: [id number] Filed: 12/26/2023 15:55 Note Text: [facility] Rehabilitation and Sports Therapy Occupational Therapy Plan of Care Certification Patient Name: Qing Fischer : 1945 CCF #: [id number] Date: 12/26/2023 To: Wolfgang Chou PA-C From Therapist: RAHUL Olsen RE: Patient Certification/ Recertification Your review, approval and electronic signature are required in order to comply with Payor: [employer] / Plan: [employer] MEDICARE ADVANTAGE HMO / Product Type: HMO [...] Planned: 2 Planned Treatment Interventions: Therapeutic exercise (45122), Manual therapy (57693), Self-mcfp management (53747), Patient/Family/Caregiv er Education For further details regarding this patient refer to the Occupational Therapy electronically documented visit dated 12/26/2023. Provider Attestation I have reviewed the treatment plan for Qing Fischer, CCF# [id number] for the period of 12/14/23 -- 01/25/24, established on 12/26/2023. Signature certifies the need for therapy services. Normal [facility] CNTHERAPYon 12-26-2023 CNTHERAPY OT/PT/Speech Visit (ZAHIRA) QING FISCHER ([id number]) 1945 F [place] Date Time Provider Department 12/26/23 2:45 PM ROMINA DARNELL Date Time Provider Department Center 12/26/2023 2:45 PM [id number] DARNELL Reason for Visit: OT Discharge [750] [...] CAP) - PSEUDOEPHEDRINE 30 MG TAB Normal [facility] CNTHERAPYon 12-19-2023 CNTHERAPY OT/PT/Speech Visit (ZAHIRA) QING FISCHER ([id number]) 1945 F [place] Date Time Provider Department 12/19/23 2:45 PM ROMINA DARNELL Date Time Provider Department Center 12/19/2023 2:45 PM [id number]-EIEFYPGAROMINA DARNELL Reason for Visit: Occupational Therapy [504] [...] ADELAIDA - Fully Assessed Prescriptions as of 12/19/2023 [...] CAP) - PSEUDOEPHEDRINE 30 MG TAB Normal [facility] CNTHERAPYon 12-12-2023 CNTHERAPY OT/PT/Speech Visit (ZAHIRA) QING FISCHER ([id number]) 1945 F Date Time Provider Department 12/12/23 2:45 PM ROMINA DARNELL Date Time Provider Department Center 12/12/2023 2:45 PM [id number]-ZMVXCJCVROMINA DARNELL Reason for Visit: Occupational Therapy [504] [...] RN - Fully Assessed Prescriptions as of 12/12/2023 [...] CAP) - PSEUDOEPHEDRINE 30 MG TAB Normal [facility] CNTHERAPYon 12-05-2023 CNTHERAPY OT/PT/Speech Visit (LOOTRM) AALIYAHQING Sutton ([id number]) 1945 F [place] Date Time Provider Department 12/05/23 2:45 PM ROMINA DARNELLLesley Date Time Provider Department Center 12/05/2023 2:45 PM [id number], ROMINAÁNGEL Alexander Reason for Visit: Occupational Therapy [504] Primary [...] ADELAIDA - Fully Assessed Prescriptions as of 12/05/2023 [...] Darnell OTR/Cristopher on 12/05/2023 3:30 PM Normal [facility] CNTHERAPYon 11-28-2023 CNTHERAPY OT/PT/Speech Visit (ZAHIRA) QING FISCHER ([id number]) 1945 F [place] Date Time Provider Department 11/28/23 2:00 PM ROMINA DARNELL Date Time Provider Department Center 11/28/2023 2:00 PM [id number]-FSMNMEMXROMINA DARNELL Reason for Visit: Occupational Therapy [504] [...] CAP) - PSEUDOEPHEDRINE 30 MG TAB Normal [facility] CNTHERAPYon 11-21-2023 CNTHERAPY OT/PT/Speech Visit (LOOTR) QING FISCHER ([id number]) 1945 F [place] Date Time Provider Department 11/21/23 2:45 PM DOMINIQUEROMINA BARRIOS DIONELSYLesley Date Time Provider Department Center 11/21/2023 2:45 PM [id number]-FCASVYBSROMINA DARNELL Reason for Visit: OT Progress Note [...] CAP) - PSEUDOEPHEDRINE 30 MG TAB Normal [facility] CNTHERAPYon 11-14-2023 CNTHERAPY OT/PT/Speech Visit (ZAHIRA) QING FISCHER ([id number]) 1945 F Date Time Provider Department 11/14/23 2:45 PM ROMINA DARNELL Date Time Provider Department Center 11/14/2023 2:45 PM [id number]-BCFYAKYPROMINA DARNELL Reason for Visit: Occupational Therapy [504] [...] ADELAIDA - Fully Assessed Prescriptions as of 11/14/2023 [...] CAP) - PSEUDOEPHEDRINE 30 MG TAB Normal [facility] CNOVon 11-09-2023 CNOV Office Visit (AVINASH ) QING FISCHER ([id number]) 1945 F Date Time Provider Department 11/09/23 10:15 AM WOLFGANG CHOU During your visit today, we recorded the following information about you: Wolfgang Chou PA-C 11/27/2023 1:57 PM Signed Patient Name: QING Sutton [facility] No: [id number] Date of Service: November 09, 2023 [facility] Postoperative patient presents for suture removal [...] symptoms. This note was partially generated using [email or web address] voice recognition system and as such may [...] GENERAL 3V OR MORE AP/TRUE AP/OTHER LEFT [[id number]] Order #: [id number] FUTURE CONSULT TO FACTORY HAND [[id number]] Order #: [id number]: 1 FUTURE Prescriptions as of 11/27/2023 - [...] Disposition History (more content not included)... Normal [facility] XR SHLDR >/=3V AP/JULIETA AP/OTH R LTon [...] limits. IMPRESSION: 1. Intact left shoulder arthroplasty Head Filter Press Tender: WILLIAM Transcribe Date/Time: Nov 09 2023 12:31P Dictated by : MAGDI ELLISON MD This examination was interpreted and the report reviewed and electronically signed by: MAGDI ELLISON MD on Nov 09 2023 12:33PM EST [id number] Normal [facility] XR Shoulder - left 3 Viewson 11-09-2023 [facility] CNTHERAPYon 11-06-2023 CNTHERAPY OT/PT/Speech Visit (LOOTRM) QING FISCHER ([id number]) 1945 F Date Time Provider Department 11/06/23 2:00 PM TONIAFELIXÁNGEL RODRIGES Date Time Provider Department Center 11/06/2023 2:00 PM [id number]-MQWZUFGOROMINA DARNELL Reason for Visit: Occupational Therapy [504] [...] II PAGE 1 last updated by Romina Darnell, OTR/L on 11/06/2023 2:52 PM Annotated image of OT HAND DOWEL SHOULDER GENERAL (PAGE 1 OF 2) last updated by Romina Darnell OTR/Cristopher on 11/06/2023 2:52 PM Normal [facility] BRIEF OP NOTon 10-30-2023 BRIEF OP NOT HNO ID: [id number] Author: TONY COMBS MD Service: Orthopaedic Surgery Author Type: Fellow Type: Brief Op Note Filed: 10/30/2023 08:52 Note Text: Attestation signed by Tony Combs MD at 10/30/2023 8:52 AM Tony Combs MD BRIEF OP NOTE Patient Name: Qing Fischer Log ID: [id number] Surgery Date: 10/30/2023 Pre-Op/Pre-Procedure Diagnosis: Exposed orthopaedic hardware (HCC) [T84.498A] Post-Op/Post-Procedure Diagnosis: Same Surgeon(s) and Corporate Communications Specialist(s): Surgeon(s) and Role: * Tony Combs MD [...] Date: October 30, 2023 Time: 8:32 AM [facility] HISTORY PHYSICALon HISTORY PHYSICAL HNO ID: [id number] Author: TONY COMBS MD Service: Orthopaedic Surgery [...] Peralta MD Resident Physician Orthopaedic Surgery Pager: [phone] Email: Between 5PM to 7AM, or if urgent, please page the orthopaedic on-call resident at: [phone] ([phone]) for [facility] patients [id number] for [facility] patients [address] for [facility] patients [address] for [facility] patients [address] for [facility] patients [facility] OPERATIVE NOon 10-30-2023 OPERATIVE NO HNO ID: [id number] Author: TONY COMBS MD Service: Orthopaedic Surgery Author Type: Physician Type: Operative Report Filed: 10/31/2023 12:27 Note Text: [facility] - Operative Report QING FISCHER : 1945 AGE: 78. SEX: F PATIENT TYPE: A HOSP SVC: OR LOCATION: [facility] ATTENDING PHYSICIAN: Tony Combs M.D. CSN NUMBER: [id number] DATE OF SURGERY/PROCEDURE: 10/30/2023 INCISION/PROCEDURE START TIME: 809. INCISION CLOSE/PROCEDURE END TIME: 822. PREOPERATIVE DIAGNOSIS: [...] shoulder replacement arthroplasty. SURGEON: Tony Combs M.D. WET PROCESS ASSISTANT HEAD MILLER: 1. Dr. Lawrence. 2. Dr. Peralta. SURGERY/PROCEDURE: Removal two k-wires under sterile conditions with local anaesthesia left shoulder ANESTHESIA: Local infiltration anesthesia by surgeon. LOCATION: [place] [address]. SURGICAL FINDINGS: Healed fracture of the scapular [...] they were retrieved with a sterile needle grain combine driver and removed. Once both removed, the [...] positioning, retraction, a (more content not included)... [facility] SURGICAL PATHOLOGYon CASE REPORT [facility] Comment on above: Order Comment: Speci men Type: DEVICE SPECIMENOrdering Facility: [facility] Address: [address] [place] [address] Result Comment: Surg ical Pathology Report Case: [id number] Authorizing Provider: Tony Combs MD Collected: 10/30/2023 08:12 AM Ordering Location: [facility] Received: 10/30/2023 10:14 AM Operating Room Pathologist: Taurus Renae MD, PhD Specimen: HARDWARE, left shoulder-removed hardware k wires Performed By: #### S ####[facility] LABCLIA [id number] [address] CLINICAL HISTORY Normal [facility] Comment on above: Order Comment: Speci men Type: DEVICE SPECIMENOrdering Facility: [facility] Address: [address] [place] [address] Result Comment: Pre- op diagnosis: Exposed orthopaedic hardware (HCC) [T84.498A] Performed By: #### S ####[facility]CL[facility] [id number] [address] FINAL DIAGNOSIS [facility] Comment on above: Order Comment: Speci men Type: DEVICE SPECIMENOrdering Facility: [facility] Address: [address] [place] [address] Result Comment: A. L eft shoulder, orthopedic hardware, removal: -K wires (gross diagnosis only). VANESSA/RUI 10/31/23 10:25 AM Performed By: #### S ####[facility]CLIA [id number] [address] FINAL PERFORMING LAB [facility] Comment on above: Order Comment: Speci men Type: DEVICE SPECIMENOrdering Facility: [facility] Address: [address] [place] [address] Result Comment: Diag nostic interpretation performed at [facility], [address] [place] [address] CLIA# [id number] Pastry Wrapper: Anthony Bruno M.D. Performed By: #### S ####[facility] [id number] [address] STATES [place] GROSS DESCRIPTION A. HARDWARE Normal [facility] Comment on above: Order Comment: Speci men Type: DEVICE SPECIMENOrdering Facility: [facility] Address: [address] [place] [address] Result Comment: Rece ived fresh, labeled left shoulder-removed hardware K wires are 2, denton metallic K wires consisting of a straight guilherme with looped end. Fragmentation is not identified. There is no soft tissue present. The specimen is for gross examination only. The specimen is reviewed with Dr. Renae. RUI October 31, 2023 10:24 AM Gross examination performed at [facility], [address] [place] [address] Performed By: #### S ####[facility] [id number] [address] OF [facility] CNOVon 10-26-2023 CNOV Office Visit (ORTHBE ) QING FISCHER ([id number]) [address] [facility] Date Time Provider Department 10/26/23 9:45 AM TONY COMBS During your visit today, we recorded the following information about you: Tony Combs MD 10/31/2023 1:19 PM Signed Patient Name: QING Sutton [facility] No: [id number] Date of Service: October 24, 2023 [facility] Patient returns for follow up approximately 6 [...] likely Wed - for K wire removal [facility] local anaesthesia. Meanwhile, she is to remain [...] patient was offered a surgery/procedure at a [facility] facility. The surgeon/proceduralist and patient have [...] arthroplasty, lef (more content not included)... Normal [facility] QING FISCHER ([id number]) 1945 F Date Time Provider Department 10/24/23 9:30 AM WOLFGANG CHOU [facility] During your visit today, we recorded the following information about you: Wolfgang Chou PA-C 10/26/2023 9:09 AM Signed Patient Name: QING FISCHER [facility] No: [id number] Date of Service: October 24, 2023 [facility] Patient returns for follow up approximately 6 weeks status post Left shoulder reverse total Shoulder Arthroplasty, extensive capsular release, biceps tenodesis, open reduction internal fixation of acromion fracture 09/11/[address] Combs. She continues to be pleased with her progress utilizing phase 1 protocols with occupational therapy. Pain is reported as minimal rated 0/10. 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 This note was partially generated using [employer] recognition system and as such may contain [...] shoulder [M75.102, M12.812] Exposed orthopaedic hardware (HCC) [T84.498A] Order(s):XR SHOULDER GENERAL 3V OR MORE AP/TRUE AP/OTHER LEFT [[id number]] Order #: [id number] FUTURE cephALEXin (KEFLEX) 500 mg capsuleTake 1 [...] rotator cuff, lef*0 (more content not included)... [facility] XR SHLDR >/=3V AP/JULIETA AP/OTH R [...] acromium. IMPRESSION: Postsurgical changes without interval complication. Head Filter Press Tender: WILLIAM Transcribe Date/Time: Oct 25 2023 8:41A Dictated by : CRAIG LAN MD This examination was interpreted and the report reviewed and electronically signed by: CRAIG LAN MD on Oct 25 2023 8:42AM EST [id number] [facility] CNTHERAPYon 10-16-2023 CNTHERAPY OT/PT/Speech Visit (ZAHIRA) QING FISCHER ([id number]) 1945 F [place] Date Time Provider Department 10/16/23 2:00 PM ROMINA DARNELL Date Time Provider Department Center 10/16/2023 2:00 PM [id number]-WPMDGMPUROMINA DARNELL Reason for Visit: OT Progress Note [...] CAP) - PSEUDOEPHEDRINE 30 MG TAB Normal [facility] CNTHERAPYon 10-12-2023 CNTHERAPY OT/PT/Speech Visit (AKI) MERCEDEZ FISCHERICE M ([id number]) 1945 F [place] Date Time Provider Department 10/12/23 2:00 PM ROMINA DARNELL Date Time Provider Department Center 10/12/2023 2:00 PM 545643-OMZXSLEFROMINA DARNELL Benjamin Reason for Visit: Occupational Therapy [...] CAP) - PSEUDOEPHEDRINE 30 MG TAB Normal [facility] CNTHERAPYon 10-02-2023 CNTHERAPY OT/PT/Speech Visit (ZAHIRA) AALIYAHQING Sutton ([id number]) 1945 F [place] Date Time Provider Department 10/02/23 11:45 AM ROMINA DARNELL Date Time Provider Department Center 10/02/2023 11:45 AM [id number]-KHBFXLDGROMINA DARNELL Reason for Visit: Occupational Therapy [504] [...] Darnell OTR/Cristopher on 10/02/2023 12:22 PM Normal [facility] 09-29-20[facility] QING FISCHER ([id number]) 1945 F Date Time Provider Department 09/29/23 10:15 AM WOLFGANG CHOU [place] [facility] During your visit today, we recorded the following information about you: Wolfgang Chou PA-C 10/23/2023 11:33 PM Signed Patient Name: QING Sutton [facility] No: [id number] Date of Service: September 29, [address] [facility] - ORTHOPAEDICS Patient returns for follow up status post [...] sooner. This note was partially generated using [email or web address] voice recognition system and as such may [...] GENERAL 3V OR MORE AP/TRUE AP/OTHER LEFT [[id number]] Order #: [id number] FUTURE CONSULT TO FACTORY HAND [19991003] Order #: [id number]: 1 FUTURE Prescriptions as of 10/23/2023 - [...] for Encounter Date Provider Department Center 09/29/2023 [id number], JACOB [facility] Encounter Status:Closed by WOLFGANG CHOU on 10/23/23 [facility] XR SHLDR >/=3V AP/JULIETA AP/OTH R [...] with the acromion. IMPRESSION: No acute findings. Head Filter Press Tender: WILLIAM Transcribe Date/Time: Oct 02 2023 4:21P Dictated by : ALISHA DIXON MD This examination was interpreted and the report reviewed and electronically signed by: ALISHA DIXON MD on Oct 02 2023 4:25PM EST [id number] [facility] Formson 09-28-2023 Forms [id number] 0TIFF [facility] Lab Reportson 09-28-2023 Lab Reports [id number] 0TIFF [facility] Ambulatory Visit Summaryon 0 09-27-2023 Ambulatory Visit Summary QING FISCHER :1945 Visit Date:09/27/2023 Ambulatory Visit Instructions Your Diagnosis Urge urinary incontinence Incomplete bladder emptying Bladder spasm Tests Performed Urnls Dip Stick Auto w/o Microscopy POC 24256 Your Care Team Attending Physician - BREONNA Garnica APRN, Nilam Artis Primary Care Physician - Nona [...] Urnls Dip Stick Auto w/o Microscopy POC 19323 (09/27/2023) Bilirubin Urine Dipstick - Negative Blood Urine Dipstick - Negative Glucose Urine Dipstick - Negative Ketones Urine Dipstick - Negative Leukocytes Urine Dipstick - 1+ Small Nitrite Urine Dipstick - Negative Protein Urine Dipstick - Negative Specific Buckhead Urine Dipstick - 1.010 Urine Appearance Urine [...] for choosing us for your care. Normal [facility] Ambulatory Visit Summary QING FISCHER :1945 Visit Date:09/27/2023 Ambulatory Visit Instructions Your Diagnosis Bladder spasm Tests Performed Urnls Dip Stick Auto w/o Microscopy POC 55749 Your Care Team Attending Physician - BREONNA Garnica APRN, Nilam Artis Primary Care Physician - Nona [...] Urnls Dip Stick Auto w/o Microscopy POC 25791 (09/27/2023) Bilirubin Urine Dipstick - Negative Blood Urine Dipstick - Negative Glucose Urine Dipstick - Negative Ketones Urine Dipstick - Negative Leukocytes Urine Dipstick - 1+ Small Nitrite Urine Dipstick - Negative Protein Urine Dipstick - Negative Specific Buckhead Urine Dipstick - 1.010 Urine Appearance Urine [...] for choosing us for your care. [place] [facility] Patient Educationon 09-27-19 Patient Education Obstetrics and [...] health care provider. General instructions ? Take beid-vrt-ouzzamj and prescription medicines only as told by [...] monitor yo (more content not included)... 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 [...] (N32.89: Other specified disorders of bladder) Ordered: 32385 Measure Post Void residual urine and/or bladder capacity by US- non-imaging Urnls Dip Stick Auto w/o Microscopy POC 66896 Follow-up No qualifying data available Patient Education [...] Protein Urine Dipstick: Negative (09/27/23 13:24:00) Specific Buckhead Urine Dipstick: 1.010 (09/27/23 13:24:00) Urine Appearance Urine Dipstick: Clear (09/27/23 13:24 (more content not included)... Normal [facility] Comment on above: Result Comment: Elec tronically Signed By: BREONNA Garnica APRN, [place] X\.br\Date and Time Signed: 09/27/23 15:12 EST CNTHERAPYon 09-15-2023 CNTHERAPY OT/PT/Speech Visit (OTLUOP) QING FISCHER ([id number]) 1945 F LV Date Time Provider Department 09/15/23 8:30 AM MILADIS ROBERTSON Date Time Provider Department Center 09/15/2023 8:30 AM [id number] ROBERTSON OTCYNTHIA [facility] Reason for Visit: OT EVAL [748] OT [...] PSEUDOEPHEDRINE 30 MG TAB Letter Text Normal [facility] Basic metabolic 2000 panelon 09-12-2023 Anion gap [Moles/Vol] 7 mmol/L Low 9-18 [facility] Comment on above: Order Comment: Speci men Type: BLOOD SPECIMENOrdering Facility: [facility] Address: [address] [place] [address] Performed By: #### 2 4321-2 ####[facility] LABORATORYCLIA [id number] [place] [address] [place] Calcium [Mass/Vol] 8.3 mg/dL Low 8.5-10.2 [facility] Comment on above: Order Comment: Speci men Type: BLOOD SPECIMENOrdering Facility: [facility] Address: [address] [place] [address] Performed By: #### 2 4321-2 ####BUDDHIST LABORATORYCLIA [id number] [place] [address] [place] Chloride [Moles/Vol] 107 mmol/L High 97-105 [facility] Comment on above: Order Comment: Speci men Type: BLOOD SPECIMENOrdering Facility: [facility] Address: [address] [place] [address] Performed By: #### 2 4321-2 ####BUDDH[facility] LABORATORYCLIA [id number] [place] [address] [place] CO2 [Moles/Vol] 24 mmol/L Normal 22-30 [facility] Comment on above: Order Comment: Speci men Type: BLOOD SPECIMENOrdering Facility: [facility] Address: [address] [place] [address] Performed By: #### 2 4321-2 ####B[facility]DH[facility] LABORATORYCLIA [id number] [place] [address] [place] Creatinine [Mass/Vol] 0.75 mg/dL Normal 0.58-0.96 [facility] Comment on above: Order Comment: Speci men Type: BLOOD SPECIMENOrdering Facility: [facility] Address: [address] [place] [address] Performed By: #### 2 4321-2 ####B[facility]DH[facility] LABORATORYCLIA [id number] [place] [address] [place] Creatinine and Glomerular filtration rate.predicted panel (S/P/Bld) 81 mL/min/1.73m??? Normal >=60 [facility] Comment on above: Order Comment: Laura jackson Type: BLOOD SPECIMENOrdering Facility: [facility] Address: [address] [place] [place] [address] Result Comment: Nuha mated Glomerular Filtration Rate [...] actual GFR. Performed By: #### 2 4321-2 ####BUDDHIST LABORATORYCLIA [id number] [place] [address] [place] Glucose [Mass/Vol] 115 mg/dL High 74-99 [facility] Comment on above: Order Comment: Laura jackson Type: BLOOD SPECIMENOrdering Facility: [facility] Address: [address] [place] [place] [address] Result Comment: The [place] Diabetes Association (ADA) provides guidance for cutoff [...] Standards of Medical Care in Diabetes 2016, [place] Diabetes Association. Diabetes Care. 2016.39(Suppl 1). Performed By: #### 2 4321-2 ####BUDDHIST LABORATORYCLIA [id number] [place] [address] [place] Potassium [Moles/Vol] 4.4 mmol/L Normal 3.7-5.1 [facility] Comment on above: Order Comment: Speci men Type: BLOOD SPECIMENOrdering Facility: [facility] Address: [address] [place] [address] Performed By: #### 2 4321-2 ####BUDDHIST LABORATORYCLIA [id number] [place] [address] [place] [facility] Sodium [Moles/Vol] 138 mmol/L Normal 136-144 [facility] Comment on above: Order Comment: Speci men Type: BLOOD SPECIMENOrdering Facility: [facility] Address: [address] [place] [address] Performed By: #### 2 4321-2 ####BUDDHIST LABORATORYCLIA [id number] [place] [address] [place] Urea nitrogen [Mass/Vol] 18 mg/dL Normal 7-21 [facility] Comment on above: Order Comment: Speci men Type: BLOOD SPECIMENOrdering Facility: [facility] Address: [address] [place] [place] [address] Performed By: #### 2 4321-2 ####BUDDHIST LABORATORYCLIA [id number] [place] [address] [facility] PK CASE MGT INIT ASSESon 2022 CASE MGT INIT ASSES HNO ID: [id number] Author: Vivian Davis RN Service: Care Management Author Type: Registered Nurse Type: Care Mgt Initial Assessment Filed: 09/12/2023 3:30 PM Note Text: CARE MANAGEMENT: ASSESSMENT AND DISCHARGE PLAN SERVICE DATE: September 12, 2023 SERVICE TIME: 1310 PCP: Nona Mcknight MD Primary Contact: Extended Emergency Contact Information Primary Emergency Contact: SINA FISCHER Address: [address] [place] [address] Mobile Relation: Spouse Secondary Emergency Contact: Matt Rogers Relation: Son Admission Status: Extended Recovery Insurance Provider: EBONY GILMAN [facility] Discharge Planning requested by: Per Department Practice Potential Transition Plans Home;Outpatient Therapy Advance Directives Current Advance Directive: Health Care Power of Medical Operations Supervisor In Chart: No Current Living Arrangements and Support Lives with: Spouse/significant other Type of Residence: Private Residence (House) Does the patient have to climb stairs at home?: Yes Support: Current Services/Equipment Current Post-Acute Service(s): DME Current DME Type: Cane Discharge Planning Patient Goal(s): Better mobility, Less pain Nickerson of Choice Explained: Nickerson of Choice Given: No Reason Not Given: [...] Physician Primary Care Physician Name/Phone: Nona Mcknight [phone] Additional Information: Summary of Care Post-Acute Discharge Plan: Patient assessed at this time. She lives with her and he will assist and transport home. She will be staying with the Son locally until tomorrow. Plan is to discharge today when all goals are met. Scripts sent to [facility]. She is scheduled for outpt OT Monday, requested an earlier day. She has no other needs. SIGNATURE: Vivian Davis RN PATIENT NAME: Qing Fischer DATE: September 12, 2023 TIME: 1:14 PM CONTACT #: [phone] Normal [facility] CBC panel Auto (Bld)on 09-12 Erythrocyte distribution width (RBC) [Ratio] 13.9 % Normal 11.5-15.0 [facility] Comment on above: Order Comment: Speci men Type: BLOOD SPECIMENOrdering Facility: [facility] Address: [address] [place] [place] [address] Performed By: #### 5 8410-2 ####BUDDHIST LABORATORYCLIA [id number] [address] [address] [place] Hematocrit (Bld) [Volume fraction] 27.9 % Low 36.0-46.0 [facility] Comment on above: Order Comment: Speci men Type: BLOOD SPECIMENOrdering Facility: [facility] Address: [address] [place] [address] Performed By: #### 5 8410-2 ####BUDDHIST LABORATORYCLIA [id number] [address] [place] [address] [place] Hemoglobin (Bld) [Mass/Vol] 8.8 g/dL Low 11.5-15.5 [facility] Comment on above: Order Comment: Speci men Type: BLOOD SPECIMENOrdering Facility: [facility] Address: [address] [place] [address] Performed By: #### 5 8410-2 ####BUDDHIST LABORATORYCLIA [id number] [address] [place] MCH (RBC) [Entitic mass] 27.9 pg Normal 26.0-34.0 [facility] Comment on above: Order Comment: Speci men Type: BLOOD SPECIMENOrdering Facility: [facility] Address: [address] [place] [address] Performed By: #### 5 8410-2 ####BUDDHIST LABORATORYCLIA [id number] [address] [place] MCHC (RBC) [Mass/Vol] 31.5 g/dL Normal 30.5-36.0 [facility] Comment on above: Order Comment: Speci men Type: BLOOD SPECIMENOrdering Facility: [facility] Address: [address] [place] [address] Performed By: #### 5 8410-2 ####BUDDHIST LABORATORYCLIA [id number] [address] [place] [address] [place] MCV (RBC) [Entitic vol] 88.6 fL Normal 80.0-100.0 [facility] Comment on above: Order Comment: Speci men Type: BLOOD SPECIMENOrdering Facility: [facility] Address: [address] [place] [address] Performed By: #### 5 8410-2 ####BUDDHIST LABORATORYCLIA [id number] [address] [place], [place] [address] [place] Nucleated RBC (Bld) [#/Vol] 10*3/uL Normal <0.01 [facility] Comment on above: Order Comment: Speci men Type: BLOOD SPECIMENOrdering Facility: [facility] Address: [address] [place] [place] [address] Performed By: #### 5 8410-2 ####BUDDHIST LABORATORYCLIA [id number] [address] [place], [place] [address] [place] Platelet mean volume (Bld) [Entitic vol] 8.6 fL Low 9.0-12.7 [facility] Comment on above: Order Comment: Speci men Type: BLOOD SPECIMENOrdering Facility: [facility] Address: [address] [place] [place] [address] Performed By: #### 5 8410-2 ####BUDDHIST LABORATORYCLIA [id number] [address] [place] [address] [place] Platelets (Bld) [#/Vol] 283 10*3/uL Normal 150-400 [facility] Comment on above: Order Comment: Speci men Type: BLOOD SPECIMENOrdering Facility: [facility] Address: [address] [place] [place] [address] Performed By: #### 5 8410-2 ####BUDDHIST LABORATORYCLIA [id number] [address] [place], [place] [address] [place] RBC (Bld) [#/Vol] 3.15 10*6/uL Low 3.90-5.20 [facility] Comment on above: Order Comment: Speci men Type: BLOOD SPECIMENOrdering Facility: [facility] Address: [address] [place] [address] Performed By: #### 5 8410-2 ####BUDDHIST LABORATORYCLIA [id number] [place] [address] [place] WBC (Bld) [#/Vol] 10.42 10*3/uL Normal 3.70-11.00 [facility] Comment on above: Order Comment: Speci men Type: BLOOD SPECIMENOrdering Facility: [facility] Address: [place] [address] Performed By: #### 5 8410-2 ####[facility] [id number] [address] OF [facility] CARMELADSrobert 09-12-2023 CNDS HNO ID: [id number] Author: Juan Pope MD Service: Orthopaedic Surgery [...] The patient was electively admitted to the [facility] on 09/11/2023. Surgery was scheduled and [...] Center 09/15/2023 8:30 AM Miladis Robertson OTR/Cristopher OTLUOP [facility] 09/22/2023 10:45 AM Wolfgang Chou PA-C [facility] Discharge Medications: Medication List START taking [...] Your Medications These medications were sent to [facility] [address] [place] [address] Hours: Monday-Monday, 9a (more content not included)... [facility] CONSULT PROGon 09-12-2023 CONSULT PROG HNO ID: [id number] Author: Albina Arzate MD Service: General Internal [...] Oral 78 18 99 % -- -- 09/11/23 1836 -- -- -- -- -- [...] meaning may be extrapolated by contextual derivation [facility] THERAPY NTon 09-12-2023 THERAPY NT HNO ID: [id number] Author: Oswaldo [place] PT Service: Physical Therapy Author Type: Physical Therapist Type: Therapy (PT/OT/Speech/Resp) Filed: 09/12/2023 11:48 AM Note Text: Physical Therapy Evaluation SERVICE DATE: 09/12/2023 SERVICE TIME: 1116 to 1131 ROOM: [place] [address] Recommended Discharge Disposition: Home Recommended Discharge Disposition [...] on feet Interventions Provided: Evaluation $ Evaluation-Low (49024) Billed Units: 1 unit Training AND Education [...] therapy evaluation/treatment. SIGNATURE: (more content not included)... [facility] THERAPY NT HNO ID: [id number] Author: Samantha Jaeger OT/L Service: Occupational Therapy Author Type: Occupational Therapist Type: Therapy (PT/OT/Speech/Resp) Filed: 09/12/2023 10:10 AM Note Text: Occupational Therapy Evaluation SERVICE DATE: 09/12/2023 SERVICE TIME: 904 to 944 ROOM: [place] [address] Total Joint Replacement Discharge Readiness: Cleared from [...] (ADL), Reduced mobility-other Interventions Provided: Evaluation, Self Retirement Management (20592), Therapeutic Exercise (06792) $ Evaluation - Low (66549) Billed Units: 1 unit Therapeutic Exercise (32905) Treatment Minutes: 10 $ Therapeutic Exercise (51803) Billed Units: 1 unit Self Retirement Management (92385) Treatment Minutes: 15 $ Self Retirement Management (99967) Billed Units: 1 unit Training AND Education Provided in: Adaptive Equipment/DME, Activity Adaptation/Information Systems Specialist y Strategies, Bed Mobility, Benefits of In-Hospital Mobility, Discharge Planning, Expected Functional Level, Functional Mobility Involving ADLs, Lower Extremity Dressing, Home Set-up/Modifications, Precautions/Restrictio ns, Positioning, Role of Occupational Therapy, Standing Balance to Improve [place] with ADLs/Self-Care, Transfer - Sit to Stand, Transfer - Bed to Chair, Upper Extremity Bathing, Upper Extremity Dressing, Transfer - Car, Patient Exercise/Therapy Program Support Needs, Exercise Program The Following Therapeutic Skills Were Used: Assessment of Tolerance Including Vitals Response to Activity, Cues for Sequencing/Proper Technique for A (more content not included)... Normal [facility] ANES POSTPROC EVALon 023 ANES POSTPROC EVAL HNO ID: [id number] Author: Sil Sanchez MD Service: Anesthesiology Author [...] 16 09/11/23 1749 SpO2 96 % 09/11/23 175 Vitals shown include unfiled device data. Post [...] September 11, 2023 TIME: 5:59 PM CSN: [id number] [facility] ANES PRE-OPon 09-11-2023 ANES PRE-OP HNO ID: [id number] Author: Sil Sanchez MD Service: Anesthesiology Author [...] fracture, bone grafting, possible tendon transfer. Location: [place] [address] / OR Surgeons: Tony Combs MD Estimated body mass [...] no. Vitals Value Taken Time BP 127/61 09/11/23945 Pulse 86 09/11/23945 Resp 16 09/11/23945 Temp [...] September 11, 2023 TIME: 10:58 AM CSN: [id number] [facility] BRIEF OP NOTon 09-11-2023 BRIEF OP NOT HNO ID: [id number] Author: Rex Mckeon MD Service: Hand Surgery Author Type: Fellow Type: Brief Op Note Filed: 09/11/2023 5:39 PM Note Text: BRIEF OP NOTE Patient Name: Qing Fischer Log ID: [id number] Surgery Date: 09/11/2023 Pre-Op/Pre-Procedure Diagnosis: Closed displaced fracture of acromial process, unspecified laterality, sequela [S42.123S] Rotator cuff tear arthropathy of left shoulder [M75.102, M12.812] Injury of tendon of long head of biceps, left, initial encounter [S46.102A] Contracture of shoulder, 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 Item Serial No. Tower Dragline Operator Lot No. LRB No. Used Action TRABECULAR METAL REVERSE PLUS BASE PLATE 15MM Implant [employer] [id number] Left 1 Implanted SCREW NCB ANATOMICAL SHOULDER 4.5MM PROTASUL-64WF 24MM BONE INVERSE REVERSE - [id number] Screw SCREW NCB ANATOMICAL SHOULDER 4.5MM PROTASUL-64WF 24MM BONE INVERSE REVERSE [employer] [id number] Left 1 Wasted SCREW NCB ANATOMICAL SHOULDER 4.5MM PROTASUL-64WF 33MM BONE INVERSE REVERSE - [id number] Screw SCREW NCB ANATOMICAL SHOULDER 4.5MM PROTASUL-64WF 33MM BONE INVERSE REVERSE [employer] [id number] Left 1 Implanted SCREW NCB 4.5MM PROTASUL-64WF 30MM BONE INVERSE REVERSE LOCK STERILE - [id number] Screw SCREW NCB 4.5MM PROTASUL-64WF 30MM BONE INVERSE REVERSE LOCK STERILE [employer] [id number] Left 1 Implanted TRABECULAR METAL REVERSE PLUS SHOULDER HEAD 36MM 0DEG Implant [employer] [id number] Left 1 Implanted WIRE LIZ 1.6MM STAINLESS STEEL 5.5IN FIXATION TROCAR SMOOTH GUIDE - [id number] Wire WIRE LIZ 1.6MM STAINLESS STEEL 5.5IN FIXATION TROCAR SMOOTH GUIDE [employer] [id number] Left 1 Implanted STEM 12MM TRABECULAR METAL TIVANIUM 130MM HUMERAL REVERSE STERILE SHOULDER - [id number] Joint STEM 12MM TRABECULAR METAL TIVANIUM 130MM HUMERAL REVERSE STERILE SHOULDER [employer] [id number] Left 1 Implanted WIRE LIZ 1.6MM STAINLESS STEEL 5.5IN FIXATION TROCAR SMOOTH GUIDE - [id number] Wire WIRE LIZ 1.6MM STAINLESS STEEL 5.5IN FIXATION TROCAR SMOOTH GUIDE [employer] [id number] Left 1 Implanted LINER 36MM 12D 65D TRABECULAR METAL POLYETHYLENE H+6MM SHOULDER REVERSE - [id number] Joint LINER 36MM 12D 65D TRABECULAR METAL POLYETHYLENE H+6MM SHOULDER REVERSE [employer] [id number] Left 1 Implanted CEMENT SIMPLEX P TOBRAMYCIN BONE FULL DOSE RADIOPAQUE PREBLEND STERILE - [id number] Cement / Putty CEMENT SIMPLEX P TOBRAMYCIN BONE FULL DOSE RADIOPAQUE PREBLEND STERILE [facility] [id number] Left 1 Implanted CEMENT SIMPLEX P TOBRAMYCIN BONE FULL DOSE RADIOPAQUE PREBLEND STERILE - [id number] Cement / Putty CEMENT SIMPLEX P TOBRAMYCIN BONE FULL DOSE RADIOPAQUE PREBLEND STERILE [facility] [id number] Left 1 Implanted Estimated Blood Loss: 250mL Drains: None Specimens: left shoulder and acromion Plan: 1) Admission for observation, pain control, and PT 2) Keep dressing clean, dry, and intact until follow-up Signature: Rex Mckeon MD Date: September 11, 2023 Time: 5:39 PM [facility] CONSULTon 09-11-2023 CONSULT HNO ID: [id number] Author: Albina Arzate MD Service: General Internal [...] Rex Mckeon MD 75 mL/hr at 09/11/23 184 75 mL/hr at 09/11/231840 acetaminophen 1,000 mg tab(s) (TYLENOL) 1,000 mg [...] (COLACE) 100 mg ORAL BID [place], PROPERTY CONSULTANT.AIR CARGO GROUND CREW SUPERVISOR polyethylene glycol 3350 17 g packet 17 g ORAL DAILY [place], PROPERTY CONSULTANT.AIR CARGO GROUND CREW SUPERVISOR ALLERGIES Allergen Reactions Codeine Mental Status Change [...] (pg) Date Value (more content not included)... [facility] NURSING PROGon 09-11-2023 NURSING PROG HNO ID: [id number] Author: Yazmin Heard, ADELAIDA Service: Nursing Author Type: Registered Nurse Type: [...] tomorrow and make recommendations. Pt resting comfortably. Normal [facility] OPERATIVE NOon 09-11-2023 OPERATIVE NO HNO ID: [id number] Author: Tony Combs MD Service: Orthopaedic Surgery Author Type: Physician Type: Operative Report Filed: 09/12/2023 9:49 AM Note Text: [facility] - Operative Report QING FISCHER : 1945 AGE: 78. SEX: F PATIENT TYPE: I HOSP SVC: Surgical LOCATION: [facility] ATTENDING PHYSICIAN: Tony Combs M.D. CSN NUMBER: [id number] DATE OF SURGERY/PROCEDURE: 09/11/2023 INCISION/PROCEDURE START TIME: [...] the left shoulder. SURGEON: Tony Combs M.D. WET PROCESS ASSISTANT HEAD MILLER: Dr. Mckeon. SURGERY/PROCEDURE: Revision surgery performed through [...] general anesthesia by the Anesthesia team. LOCATION: [place] [address]. SURGICAL FINDINGS: It should be noted this [...] transitioned medial, these (more content not included)... [facility] SURGICAL PATHOLOGYon 023 CASE REPORT [facility] Comment on above: Order Comment: Speci men Type: SPECIMEN FROM BONEOrdering Facility: [facility] Address: [address] [place] [place] [address] Result Comment: Surg ica Pathology Report Case: [id number] Authorizing Provider: Tony Combs MD Collected: 09/11/2023 02:30 PM Ordering Location: [facility] Received: 09/12/2023 02:27 PM Operating Room Pathologist: Magdi Alfredo MD Specimens: A) - HUMERAL HEAD LEFT, bone & tissue left shoulder joint B) - BONE RESECTION, acromium non-union bone left Performed By: #### S ####[facility] LABIA [id number] [place] [address] [place] CLINICAL HISTORY [facility] Comment on above: Order Comment: Speci men Type: SPECIMEN FROM BONEOrdering Facility: [facility] Address: [address] [place] [address] Result Comment: Pre- op diagnosis: Closed displaced fracture of acromial process, unspecified laterality, sequela [S42.123S] Rotator cuff tear arthropathy of left shoulder [M75.102, M12.812] Injury of tendon of long head of biceps, left, initial encounter [S46.102A] Contracture of shoulder, left [M24.512] Performed By: #### S ####[facility] LABIA [id number] [address] OF [facility] FINAL DIAGNOSIS [facility] Comment on above: Order Comment: Speci men Type: SPECIMEN FROM BONEOrdering Facility: [facility] Address: [address] [place] [address] Result Comment: A. L eft shoulder, arthroplasty: - Degenerative joint disease. B. 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 Performed By: #### S ####[facility] LABIA [id number] OF [place] FINAL PERFORMING LAB Normal [facility] Comment on above: Order Comment: Speci men Type: SPECIMEN FROM BONEOrdering Facility: [facility] Address: [address] [place] [address] Result Comment: Diag nostic interpretation performed at [facility], [facility] [place] [id number] CLIA# [id number] Pastry Wrapper: Anthony Bruno M.D. Performed By: #### S ####[facility] LABCLIA [id number] [address] GROSS DESCRIPTION Normal [facility] Comment on above: Order Comment: Speci men Type: SPECIMEN FROM BONEOrdering Facility: [facility] Address: [address] [place] [address] Result Comment: A. H UMERAL HEAD LEFT [...] no areas of induration or nodularity present. Seed Potato Cutter sections are submitted as follows: A1 soft [...] 2023 5:15 PM Gross examination performed at [facility], [address] [place] [address] Performed By: #### S ####[facility] LABCLIA [id number] [place] [id number] [place] XR SHOULDER SPECIFY [...] Satisfactory postoperative appearance of left shoulder arthroplasty. Head Filter Press Tender: WILLIAM Transcribe Date/Time: Sep 12 2023 8:36A Dictated by : MIRI CHONG MD This examination was interpreted and the report reviewed and electronically signed by: MIRI CHONG MD on Sep 12 2023 8:38AM EST [id number] Normal [facility] Basic metabolic 2000 panelon 09-07-2023 Anion gap [Moles/Vol] 16 mmol/L Normal - [facility] Comment on above: Order Comment: Speci men Type: BLOOD SPECIMENOrdering Facility: [facility] Address: [address] [place] [address] Performed By: #### 2 4321-2 ####[facility] LABCLIA [id number] [place] [id number] [place] Calcium [Mass/Vol] 9.8 mg/dL Normal 8.5-10.2 [facility] Comment on above: Order Comment: Speci men Type: BLOOD SPECIMENOrdering Facility: [facility] Address: [address] [place] [address] Performed By: #### 2 4321-2 ####[facility] LABCLIA [id number] [place] [id number] [place] Chloride [Moles/Vol] 103 mmol/L Normal 97-105 [facility] Comment on above: Order Comment: Speci men Type: BLOOD SPECIMENOrdering Facility: [facility] Address: [address] [place] [address] Performed By: #### 2 4321-2 ####[facility] LABCLIA [id number] [place] [address] [place] CO2 [Moles/Vol] 22 mmol/L Normal 22-30 [facility] Comment on above: Order Comment: Speci men Type: BLOOD SPECIMENOrdering Facility: [facility] Address: [address] [place] [place] [address] Performed By: #### 2 4321-2 ####[facility] LABCLIA [id number] [place] [address] [place] Creatinine [Mass/Vol] 0.73 mg/dL Normal 0.58-0.96 [facility] Comment on above: Order Comment: Speci men Type: BLOOD SPECIMENOrdering Facility: [facility] Address: [address] [place] [address] Performed By: #### 2 4321-2 ####[facility] LABCLIA [id number] [address] [place] Creatinine and Glomerular filtration rate.predicted panel (S/P/Bld) 83 mL/min/1.73m??? Normal >=60 [facility] Comment on above: Order Comment: Speci men Type: BLOOD SPECIMENOrdering Facility: [facility] Address: [address] [place] [place] [address] Result Comment: Nuha mated Glomerular Filtration Rate [...] actual GFR. Performed By: #### 2 4321-2 ####[facility] LABCLIA [id number] [place] [address] [place] Glucose [Mass/Vol] 84 mg/dL Normal 74-99 [facility] Comment on above: Order Comment: Speci men Type: BLOOD SPECIMENOrdering Facility: [facility] Address: [address] [place] [place] [address] Result Comment: The [place] Diabetes Association (ADA) provides guidance for cutoff [...] Standards of Medical Care in Diabetes 2016, [place] Diabetes Association. Diabetes Care. 2016.39(Suppl 1). Performed By: #### 2 4321-2 ####[facility] LABCLIA [id number] [place] [address] [place] Potassium [Moles/Vol] 4.3 mmol/L Normal 3.7-5.1 [facility] Comment on above: Order Comment: Speci men Type: BLOOD SPECIMENOrdering Facility: [facility] Address: [address] [place] [address] Performed By: #### 2 4321-2 ####[facility] LABCLIA [id number] [place] [address] [place] Sodium [Moles/Vol] 141 mmol/L Normal 136-144 [facility] Comment on above: Order Comment: Speci men Type: BLOOD SPECIMENOrdering Facility: [facility] Address: [address] [place] [place] [address] Performed By: #### 2 4321-2 ####[facility] LABCLIA [id number] [place] [address] [place] Urea nitrogen [Mass/Vol] 14 mg/dL Normal 7-21 [facility] Comment on above: Order Comment: Speci men Type: BLOOD SPECIMENOrdering Facility: [facility] Address: [address] [place] [place] [address] Performed By: #### 2 4321-2 ####[facility] LABCLIA [id number] [place] [address] [place] CBC W Auto Differential pane l (Bld)on 09-07-2023 Basophils (Bld) [#/Vol] 0.03 10*3/uL Normal <0.11 [facility] Comment on above: Order Comment: Speci men Type: BLOOD SPECIMENOrdering Facility: [facility] Address: [address] [place] [address] Performed By: #### 5 7021-8 ####[facility] LABCLIA [id number] [place] [address] [place] Basophils/100 WBC (Bld) 0.4 % Normal [facility] Comment on above: Order Comment: Speci men Type: BLOOD SPECIMENOrdering Facility: [facility] Address: [address] [place] [place] [address] Performed By: #### 5 7021-8 ####[facility] LABCLIA [id number] [place] [address] [place] Differential cell count method Nom (Bld) Auto Normal [facility] Comment on above: Order Comment: Speci men Type: BLOOD SPECIMENOrdering Facility: [facility] Address: [address] [place] [place] [address] Performed By: #### 5 7021-8 ####[facility] LABCLIA [id number] [place] [address] [place] Eosinophils (Bld) [#/Vol] 0.10 10*3/uL Normal <0.46 [facility] Comment on above: Order Comment: Speci men Type: BLOOD SPECIMENOrdering Facility: [facility] Address: [address] [place] [address] Performed By: #### 5 7021-8 ####[facility] LABCLIA [id number] [place] [address] [place] Eosinophils/100 WBC (Bld) 1.3 % Normal [facility] Comment on above: Order Comment: Speci men Type: BLOOD SPECIMENOrdering Facility: [facility] Address: [address] [place] [place] [address] Performed By: #### 5 7021-8 ####[facility] LABCLIA [id number] [place] [address] [place] Erythrocyte distribution width (RBC) [Ratio] 14.1 % Normal 11.5-15.0 [facility] Comment on above: Order Comment: Speci men Type: BLOOD SPECIMENOrdering Facility: [facility] Address: [address] [place] [place] [address] Performed By: #### 5 7021-8 ####[facility] LABIA [id number] [place] [address] [place] Hematocrit (Bld) [Volume fraction] 41.4 % Normal 36.0-46.0 [facility] Comment on above: Order Comment: Speci men Type: BLOOD SPECIMENOrdering Facility: [facility] Address: [address] [place] [place] [address] Performed By: #### 5 7021-8 ####[facility] LABCLIA [id number] [place] [address] [place] Hemoglobin (Bld) [Mass/Vol] 13.2 g/dL Normal 11.5-15.5 [facility] Comment on above: Order Comment: Speci men Type: BLOOD SPECIMENOrdering Facility: [facility] Address: [address] [place] [place] [address] Performed By: #### 5 7021-8 ####[facility] LABCLIA [id number] [place] [address] [place] Immature granulocytes (Bld) [#/Vol] 10*3/uL Normal <0.10 [facility] Comment on above: Order Comment: Speci men Type: BLOOD SPECIMENOrdering Facility: [facility] Address: [address] [place] [place] [address] Performed By: #### 5 7021-8 ####[facility] LABCLIA [id number] [place] [address] [place] Immature granulocytes/100 WBC (Bld) 0.3 % Normal [facility] Comment on above: Order Comment: Speci men Type: BLOOD SPECIMENOrdering Facility: [facility] Address: [address] [place] [place] [address] Performed By: #### 5 7021-8 ####[facility] LABCLIA [id number] [place] [address] [place] Lymphocytes (Bld) [#/Vol] 1.94 10*3/uL Normal 1.00-4.00 [facility] Comment on above: Order Comment: Speci men Type: BLOOD SPECIMENOrdering Facility: [facility] Address: [address] [place] [address] Performed By: #### 5 7021-8 ####[facility] LABCLIA [id number] [place] [address] [place] Lymphocytes/100 WBC (Bld) 24.4 % Normal [facility] Comment on above: Order Comment: Speci men Type: BLOOD SPECIMENOrdering Facility: [facility] Address: [address] [place] [address] Performed By: #### 5 7021-8 ####[facility] LABCLIA [id number] [place] [address] [place] MCH (RBC) [Entitic mass] 28.6 pg Normal 26.0-34.0 [facility] Comment on above: Order Comment: Speci men Type: BLOOD SPECIMENOrdering Facility: [facility] Address: [address] [place] [address] Performed By: #### 5 7021-8 ####[facility] LABCLIA [id number] [place] [address] [place] MCHC (RBC) [Mass/Vol] 31.9 g/dL Normal 30.5-36.0 [facility] Comment on above: Order Comment: Speci men Type: BLOOD SPECIMENOrdering Facility: [facility] Address: [address] [place] [address] Performed By: #### 5 7021-8 ####[facility] LABCLIA [id number] [place] [address] [place] MCV (RBC) [Entitic vol] 89.6 fL Normal 80.0-100.0 [facility] Comment on above: Order Comment: Speci men Type: BLOOD SPECIMENOrdering Facility: [facility] Address: [address] [place] [place] [address] Performed By: #### 5 7021-8 ####[facility] LABCLIA [id number] [place] [address] [place] Monocytes (Bld) [#/Vol] 0.99 10*3/uL High <0.87 [facility] Comment on above: Order Comment: Speci men Type: BLOOD SPECIMENOrdering Facility: [facility] Address: [address] [place] [place] [address] Performed By: #### 5 7021-8 ####[facility] LABCLIA [id number] [place] [address] [place] Monocytes/100 WBC (Bld) 12.5 % Normal [facility] Comment on above: Order Comment: Speci men Type: BLOOD SPECIMENOrdering Facility: [facility] Address: [address] [place] [place] [address] Performed By: #### 5 7021-8 ####[facility] LABCLIA [id number] [place] [address] [place] Neutrophils (Bld) [#/Vol] 4.87 10*3/uL Normal 1.45-7.50 [facility] Comment on above: Order Comment: Speci men Type: BLOOD SPECIMENOrdering Facility: [facility] Address: [address] [place] [address] Performed By: #### 5 7021-8 ####[facility] LABCLIA [id number] [place] [address] [place] Neutrophils/100 WBC (Bld) 61.1 % Normal [facility] Comment on above: Order Comment: Speci men Type: BLOOD SPECIMENOrdering Facility: [facility] Address: [address] [place] [place] [address] Performed By: #### 5 7021-8 ####[facility] LABCLIA [id number] [place] [address] [place] Nucleated RBC (Bld) [#/Vol] 10*3/uL Normal <0.01 [facility] Comment on above: Order Comment: Speci men Type: BLOOD SPECIMENOrdering Facility: [facility] Address: [address] [place] [place] [address] Performed By: #### 5 7021-8 ####[facility] LABCLIA [id number] [place] [address] [place] Nucleated RBC/100 WBC (Bld) [Ratio] 0.0 /100 WBC Normal [facility] Comment on above: Order Comment: Speci men Type: BLOOD SPECIMENOrdering Facility: [facility] Address: [address] [place] [address] Performed By: #### 5 7021-8 ####[facility] LABCLIA [id number] [place] [address] [place] Platelet mean volume (Bld) [Entitic vol] 9.4 fL Normal 9.0-12.7 [facility] Comment on above: Order Comment: Speci men Type: BLOOD SPECIMENOrdering Facility: [facility] Address: [address] [place] [address] Performed By: #### 5 7021-8 ####[facility] LABCLIA [id number] [place] [address] [place] Platelets (Bld) [#/Vol] 395 10*3/uL Normal 150-400 [facility] Comment on above: Order Comment: Speci men Type: BLOOD SPECIMENOrdering Facility: [facility] Address: [address] [place] [address] Performed By: #### 5 7021-8 ####[facility] LABCLIA [id number] [place] [address] [place] RBC (Bld) [#/Vol] 4.62 10*6/uL Normal 3.90-5.20 [facility] Comment on above: Order Comment: Speci men Type: BLOOD SPECIMENOrdering Facility: [facility] Address: [address] [place] [address] Performed By: #### 5 7021-8 ####[facility] LABCLIA [id number] [place] [address] [place] WBC (Bld) [#/Vol] 7.95 10*3/uL Normal 3.70-11.00 [facility] Comment on above: Order Comment: Speci men Type: BLOOD SPECIMENOrdering Facility: [facility] Address: [address] [place] [place] [address] Performed By: #### 5 7021-8 ####[facility] LABCLIA [id number] [place] [id number] [place] NEG80sm 09-07-2023 ECG01 Ventricular Rate : 9 6 BPM Atrial Rate : 96 BPM P-R Interval : 148 ms QRS Duration : 118 ms Q-T Interval : 390 ms QTC Calculation(Bazett) : 492 ms Calculated P [place] : 24 degrees Calculated R [place] : 59 degrees Calculated T [place] : 12 degrees NORMAL SINUS RHYTHM POSSIBLE LEFT ATRIAL ENLARGEMENT COMPLETE RIGHT BUNDLE BRANCH BLOCK ABNORMAL ECG Confirmed by NAFISA KAHN MD ([id number]) on 09/13/2023 4:18:57 PM NAME : QING FISCHER PID : [id number] : 1945 Gender : Female Race : [...] By : KRISTI VASQUEZ Acquired by : Hayden العلي [facility] HISTORY PHYSICALon HISTORY PHYSICAL HNO ID: [id number] Author: Kristi Vasquez 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 Author Type: Nurse Practitioner Type: [...] COVID-19 vaccine, age 12+ yr, 2022- season (PFIZER-BIONTECH) 07/18/2022 Imm Admin: COVID-19 vaccine, age 12+ yr, bivalent (PFIZER-BIONTECH) 06/24/2021 Imm Admin: COVID-19 original vaccine, age [...] fevers. Neuro: No history of TIA's, stroke, TRANSPORTATION DESIGN ENGINEER tumor, impaired sensorium, hemiplegia, paraplegia or [...] Ht 5' (more content not included)... Normal [facility] STAPH AUREUS PCRon 3 S. aureus and MRSA panel MOISES+probe (Nose) Normal Negative [facility] Comment on above: Order Comment: Speci manuel Type: SWAB OF INTERNAL NOSEOrdering Facility: [facility] Address: [address] [place] [place] [address] Result Comment: Nega tive for Staphylococcus aureus by PCR. Negative for MRSA by PCR Performed By: #### S APCR ####[facility] LABCLIA [id number] [facility] [place] [address] [place] TYPE AND SCREEN,30 DAYon ABO O Normal [facility] Comment on above: Order Comment: Speci men Type: BLOOD SPECIMEN Ordering Facility: [facility] Address: [address] [place] [address] Performed By: #### T SCR30 #### [facility] CLIA [id number] [address] [place] HISTORICAL AB SCR STATUS Negative Normal [facility] Comment on above: Order Comment: Speci men Type: BLOOD SPECIMEN Ordering Facility: [facility] Address: [address] [place] [address] Performed By: #### T SCR30 #### [facility] CLIA [id number] [address] [place] Rh Nom (Bld) Positive Normal [facility] Comment on above: Order Comment: Speci men Type: BLOOD SPECIMEN Ordering [facility]: [facility] Address: [address] [place] [address] Performed By: #### T SCR30 #### [facility] CLIA [id number] OF [place] CNOVon 08-29-2023 [facility] Q[facility]ISCHER ([id number]) 1945 F Date Time Provider Department 08/29/23 1:15 PM [facility] During your visit today, we recorded the following information about you: Tony Combs MD 08/30/2023 2:03 PM Signed [facility] NOTE DEPARTMENT OF ORTHOPAEDICS Evaluation with Tony Combs Jr., M.D. Patient Name: QING FISCHER [facility] No: [id number] : 1945 Qing Fischer is a pleasant [...] patient was offered a surgery/procedure at a [facility] facility. The surgeon/proceduralist and patient have [...] left, initial encou (more content not included)... [facility] CT 3D POST PROCESSINGon - CT 3D POST PROCESSING * * *Final [...] thoracic aorta. Mild coronary artery atherosclerotic calcification. 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 IMPRESSION: Severe LEFT rotator cuff arthropathy. Head Filter Press Tender: WILLIAM Transcribe Date/Time: Aug 03 2023 2:24P Dictated by : SERG LÓPEZ DO This examination was interpreted and the report reviewed and electronically signed by: SERG LÓPEZ DO on Aug 03 2023 2:46PM EST [id number] [facility] CT SHOULDER WO IVCON LTon CT [...] thoracic aorta. Mild coronary artery atherosclerotic calcification. 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 IMPRESSION: Severe LEFT rotator cuff arthropathy. Head Filter Press Tender: WILLIAM Transcribe Date/Time: Aug 03 2023 2:24P Dictated by : SERG LÓPEZ DO This examination was interpreted and the report reviewed and electronically signed by: SERG LÓPEZ DO on Aug 03 2023 2:46PM EST [id number] [facility] 07-18-2023 [facility] QING FISCHER ([id number]) 1945 F Date Time Provider Department 07/18/23 11:45 AM TONY COMBS [facility] During your visit today, we recorded the following information about you: Weight Height 62.1 kg 1.524 m Tony Combs MD 07/22/2023 10:43 AM Signed [facility] NOTE DEPARTMENT OF ORTHOPAEDICS Evaluation with Tony Combs Jr., M.D. Patient Name: QING Sutton AALIYAH [facility] No: [id number] : 1945 This is an active 80 [...] - Fully Assessed Reason for Visit: New [[id number]] Primary Visit Diagnosis:Rotator cuff tear arthropathy of left shoulder [M75.102, M12.812] Other Visit Diagnoses:Chronic right shoulder pain [M25.511, G89.29] Nontraumatic complete tear of rotator cuff, left [M75.122] Injury of tendon of long head of biceps, left, initial encounter [S46.102A] Closed displaced fracture of acromial process, unspecified laterality, sequela [S42.123S] Order(s):CT SHOULDER WO IVCON LEFT [[id number]] Order #: [id number] CT 3D POST PROCESSING [[id number]] Order #: [id number] FUTURE REFER TO PACC - PRE ANESTHESIA CONSULTATION CLINIC [[id number]] Order #: [id number]: 1 FUTURE XR SHOULDER GENERAL 3V OR MORE AP/TRUE AP/OTHER RIGHT [[id number]] Order #: [id number] FUTURE Prescriptions as of 07/22/2023 - estradiol(VAGIFEM 25 MCG VAGINAL TAB) Insert one(1) tablet vaginally twice weekly. - IBUPROFEN 600 MG TAB 1 Tab ORAL EVERY 6 HOURS NEEDED - multivitamins w-minerals/lut (more content not included)... [facility] XR SHLDR >/=3V AP/JULIETA AP/OTH R [...] HISTORY: pt sts chronic shoulder pain (accession [id number]), RT SHOULDER PAIN/REPLACED 14 MONTHS AGO (accession [id number]) CLINICAL INFORMATION ( PROVIDED BY ORDERING CLINICIAN) [...] with associated acromial fragmentation from advanced remodeling. Head Filter Press Tender: WILLIAM Transcribe Date/Time: Jul 20 2023 10:15P Dictated by : MARYANN SUAREZ MD This examination was interpreted and the report reviewed and electronically signed by: MARYANN SUAREZ MD on Jul 20 2023 10:17PM EST [id number] [facility] XR SHLDR >/=3V AP/JULIETA AP/OTH R [...] HISTORY: pt sts chronic shoulder pain (accession [id number]), RT SHOULDER PAIN/REPLACED 14 MONTHS AGO (accession [id number]) CLINICAL INFORMATION ( PROVIDED BY ORDERING CLINICIAN) [...] with associated acromial fragmentation from advanced remodeling. Head [facility] Transcribe Date/Time: Jul 20 2023 10:15P Dictated by : MARYANN SUAREZ MD This examination was interpreted and the report reviewed and electronically signed by: MARYANN SUAREZ MD on Jul 20 2023 10:17PM EST [id number] Normal [facility] XR SHOULDER GENERAL 3V OR MO RE AP/TRUE AP/OTHER RIGHTon 07-18-2023 [facility] INSULINon 02-08-2023 Insulin 17.0 uIU/mL Normal 2.6-24.9 [facility] Comment on above: Performed By: #### C BC #### [facility] [address] [address] [address] Kashif Martinez OCC BLD IMMUNO SCREENon 01-23 OCCULT BLOOD Negative Normal NEGATIVE [facility] Comment on above: Performed By: #### O BSCRN #### [facility] [address] [place], [place] [address] Dr. Kashif Martinez UA RANDOM W/MICROSCOPICon BACTERIA TRACE Abnormal NONE SEEN [facility] Comment on above: Performed By: #### U AMIC #### [facility] [address] [address] [address] Kashif Martinez Bilirubin Ql (U) Negative Normal NEGATIVE [facility] Comment on above: Performed By: #### U AMIC #### [facility] [address] [address] [address] Kashif Martinez CAST NONE SEEN Normal NONE SEEN [facility] Comment on above: Performed By: #### U AMIC #### [facility] [address] [address] [address] Kashif Martinez Clarity (U) CLEAR Normal CLEAR [facility] Comment on above: Performed By: #### U AMIC #### [facility] [address] [place] [address] Dr. Kashif Martinez Color (U) LT. YELLOW Normal YELLOW [facility] Comment on above: Performed By: #### U AMIC #### [facility] [address] [address] [address] Kashif Martinez Crystals LM Nom (Urine sed) NONE SEEN Normal NONE SEEN [facility] Comment on above: Performed By: #### U AMIC #### [facility] [address] [place] [address] Dr. Kashif Martinez Epithelial cells LM Ql (Urine sed) FEW Abnormal NONE SEEN /RARE [facility] Comment on above: Performed By: #### U AMIC #### [facility] [address] [place] [address] Dr. Kashif Martinez Glucose Ql (U) Negative Normal NEGATIVE [facility] Comment on above: Performed By: #### U AMIC #### [facility] [address] [address] [address] Kashif Martinez Hemoglobin Ql (U) Negative Normal NEGATIVE [facility] Comment on above: Performed By: #### U AMIC #### [facility] [address] [place] [address] Dr. Kashif Martinez Ketones Ql (U) Negative Normal NEGATIVE [facility] Comment on above: Performed By: #### U AMIC #### [facility] [address] [address] [address] Kashif Martinez LEUKOCYTES TRACE Abnormal NEGATIVE [facility] Comment on above: Performed By: #### U AMIC #### [facility] [address] [address] [address] Kashif Martinez MUCOUS NONE SEEN Normal NONE SEEN [facility] Comment on above: Performed By: #### U AMIC #### [facility] [address] [address] [address] Kashif Martinez Nitrite Ql (U) Negative Normal NEGATIVE [facility] Comment on above: Performed By: #### U AMIC #### [facility] [address] [place] [address] Dr. Kashif Martinez pH (U) 6.0 [pH] Normal 5-9 [facility] Comment on above: Performed By: #### U AMIC #### [facility] [address] [place] [address] Dr. Kashif Martinez RBC 0-2 Normal 0-2 [facility] Comment on above: Performed By: #### U AMIC #### [facility] [address] [address] [address] Kashif Martinez SPEC GRAVITY <=1.005 Abnormal 1.005-<=1.025 [facility] Comment on above: Performed By: #### U AMIC #### [facility] [address] [place] [address] Dr. Kashif Martinez UA PROTEIN Negative Normal NEGATIVE/ TRACE [facility] Comment on above: Performed By: #### U AMIC #### [facility] [address] [place] [address] Dr. Kashif Martinez Urobilinogen Qn (U) 0.2 {Harvinder'U}/dL Normal 0.2 - 1. 0 [facility] Comment on above: Performed By: #### U AMIC #### [facility] [address] [place] [address] Dr. Kashif Martinez WBC 0-2 Abnormal NONE SEEN [facility] Comment on above: Performed By: #### U AMIC #### [facility] [address] [place] [address] Dr. Kashif Martinez CBC AUTO DIFFon 02-07-2023 BASO # 0.0 103/ul Normal 0.0-0.1 [facility] Comment on above: Performed By: #### C BC #### [facility] [address] [place] [address] Dr. Kashif Martinez Basophils/100 WBC (Bld) 0.6 % Normal 0.2-2.0 [facility] Comment on above: Performed By: #### C BC #### [facility] [address] [place] [address] Dr. Kashif Martinez EO # 0.0 103/ul Normal 0.0-0.7 [facility] Comment on above: Performed By: #### C BC #### [facility] [address] [place] [address] Dr. Kashif Martinez Eosinophils/100 WBC (Bld) 0.6 % Critically low 0.9-7.0 [facility] Comment on above: Performed By: #### C BC #### [facility] [address] [place] [address] Dr. Kashif Martinez Erythrocyte distribution width (RBC) [Ratio] 18.1 % Critically high 11.0-15.0 [facility] Comment on above: Performed By: #### C BC #### [facility] [address] [place] [address] Dr. Kashif Martinez Hematocrit (Bld) [Volume fraction] 30.1 % Critically low 36.0-48.0 [facility] Comment on above: Performed By: #### C BC #### [facility] [address] [place] [address] Dr. Kashif Martinez Hemoglobin (Bld) [Mass/Vol] 8.6 g/dL Critically low 12.0-16.0 [facility] Comment on above: Performed By: #### C BC #### [facility] [address] [place] [address] Dr. Kashif Martinez IG # 0.02 10e3/ul Normal 0.00-0.03 [facility] Comment on above: Performed By: #### C BC #### [facility] [address] [address] [address] Kashif Martinez IG % 0.3 % Normal 0.0-0.5 [facility] Comment on above: Performed By: #### C BC #### [facility] [address] [address] [address] Kashif Martinez LYMPH # 1.4 103/ul Normal 1.2-3.8 [facility] Comment on above: Performed By: #### C BC #### [facility] [address] [address] [address] Kashif Martinez Lymphocytes/100 WBC (Bld) 19.8 % Critically low 20.5-60.0 [facility] Comment on above: Performed By: #### C BC #### [facility] [address] [place] [address] Dr. Kashif Martinez MANUAL DIFF REQ NO Normal [facility] Comment on above: Performed By: #### C BC #### [facility] [address] [place] [address] Dr. Kashif Martinez MCH (RBC) [Entitic mass] 19.2 pg Critically low 26.7-34.0 [facility] Comment on above: Performed By: #### C BC #### [facility] [address] [place] [address] Dr. Kashif Martinez MCHC (RBC) [Mass/Vol] 28.6 g/dL Critically low 29.9-35.2 [facility] Comment on above: Result Comment: Slig ht Hypochromosia Seen Performed By: #### C BC #### [facility] [address] [place] [address] Dr. Kashif Martinez MCV (RBC) [Entitic vol] 67.3 fL Critically low 81.0-99.0 [facility] Comment on above: Performed By: #### C BC #### [facility] [address] [place] [address] Dr. Kashif Martinez MONO # 0.8 103/ul Normal 0.3-0.8 [facility] Comment on above: Performed By: #### C BC #### [facility] [address] [address] [address] Kashif Martinez Monocytes/100 WBC (Bld) 11.1 % Normal 1.7-12.0 [facility] Comment on above: Performed By: #### C BC #### [facility] [address] [place] [address] Dr. Kashif Martinez NEUT # 4.7 103/ul Normal 1.4-6.5 [facility] Comment on above: Performed By: #### C BC #### [facility] [address] [place] [address] Dr. Kashif Martinez Neutrophils/100 WBC (Bld) 67.6 % Normal 43.0-75.0 [facility] Comment on above: Performed By: #### C BC #### [facility] [address] [place] [address] Dr. Kashif Martinez Platelet mean volume (Bld) [Entitic vol] 8.5 fL Critically low 9.5-13.5 [facility] Comment on above: Performed By: #### C BC #### [facility] [address] [place] [address] Dr. Kashif Martinez PLT 409 103/ul Normal 150-450 [facility] Comment on above: Performed By: #### C BC #### [facility] [address] [place] [address] Dr. Kashif Martinez RBC 4.47 106/ul Normal 4.20-5.40 [facility] Comment on above: Performed By: #### C BC #### [facility] [address] [place] [address] Dr. Kashif Martinez WBC 6.9 103/ul Normal 4.0-11.0 [facility] Comment on above: Performed By: #### C BC #### [facility] [address] [place] [address] Dr. Kashif Martinez FREE T3on 02-07-2023 FREE T3 3.47 pg/mlL Normal 2.18-3.98 [facility] Comment on above: Performed By: #### C MP, TSH, T7, LIPID #### [facility] [address] [place] [address] Dr. Kashif Martinez GLYCOHEMOGLOBIN A1Con 2022 ADA RECOMMENDATION SEE BELOW Normal [facility] Comment on above: Result Comment: ADA RECOMMENDED LIMIT 4.0 - 6.0 ADA THERAPEUTIC TARGET < 7.0 ACTION SUGGESTED > 7.0 Performed By: #### C BC #### [facility] [address] [address] [address] Kashif Martinez Glucose [Mass/Vol] 103 mg/dL Normal [facility] Comment on above: Performed By: #### C BC #### [facility] [address] [place] [address] Dr. Kashif Martinez HbA1c (Bld) [Mass fraction] 5.2 % Normal 4.5-6.2 [facility] Comment on above: Performed By: #### C BC #### [facility] [address] [place] [address] Dr. Kashif Martinez IRONon 02-07-2023 Iron [Mass/Vol] 12.0 ug/dL Critically low 50.0-170.0 [facility] Comment on above: Performed By: #### V ITAD, IRON #### [facility] [address] [place] [address] Dr. Kashif Martinez LIPID PROFILEon 02-07-2023 CHOL-HDL RATIO NORM SEE BELOW Normal [facility] Comment on above: Result Comment: 3.3 - 4.4 LOW RISK 4.4 - 7.1 AVERAGE RISK 7.1 - 11.0 MODERATE RISK >11.0 HIGH RISK Performed By: #### C MP, TSH, T7, LIPID #### [facility] [address] [place] [address] Dr. Kashif Martinez Cholesterol [Mass/Vol] 180 mg/dL Normal <=200 [facility] Comment on above: Performed By: #### C MP, TSH, T7, LIPID #### [facility] [address] [place] [address] Dr. Kashif Martinez Cholesterol in HDL [Mass/Vol] 64 mg/dL Critically high 40-60 [facility] Comment on above: Performed By: #### C MP, TSH, T7, LIPID #### [facility] [address] [address] [address] Kashif Martinez Cholesterol in LDL [Mass/Vol] 100.2 mg/dL Normal [facility] Comment on above: Performed By: #### C MP, TSH, T7, LIPID #### [facility] [address] [address] [address] Ksahif Martinez Cholesterol.total/Ch olesterol in HDL [Mass ratio] 2.8 {ratio} Normal [facility] Comment on above: Performed By: #### C MP, TSH, T7, LIPID #### [facility] [address] [address] [address] Kashif Martinez HDL NORMAL > or = 60 mg/dl - LO W CARDIOVASCULAR RISK <40 mg/dl - HIGH CARDIOVASCULAR RISK Normal [facility] Comment on above: Performed By: #### C MP, TSH, T7, LIPID #### [facility] [address] [address] [address] Kashif Martinez LDL CALC NORMAL SEE BELOW Normal [facility] Comment on above: Result Comment: <100 mg/dl OPTIMAL 100 - 129 mg/dl NEAR OR ABOVE OPTIMAL 130 - 159 mg/dl BORDERLINE HIGH 160 - 189 mg/dl HIGH >190 mg/dl VERY HIGH Performed By: #### C MP, TSH, T7, LIPID #### [facility] [address] [address] [address] Kashif Martinez Triglyceride [Mass/Vol] 79 mg/dL Normal <=150 [facility] Comment on above: Performed By: #### C MP, TSH, T7, LIPID #### [facility] [address] [address] [address] Kashif Martinez VLDL CALC 15.8 mg/dL Normal [facility] Comment on above: Performed By: #### C MP, TSH, T7, LIPID #### [facility] [address] [address] [address] Kashif Martinez PROF 14(COMP METB)on 023 Albumin [Mass/Vol] 3.8 g/dL Normal 3.4-5.0 [facility] Comment on above: Performed By: #### C BC #### [facility] [address] [place] [address] Dr. Kashif Martinez Albumin/Globulin [Mass ratio] 0.9 {ratio} Normal [facility] Comment on above: Performed By: #### C BC #### [facility] [address] [place] [address] Dr. Kashif Martinez ALP [Catalytic activity/Vol] 100 U/L Normal 46-116 [facility] Comment on above: Performed By: #### C BC #### [facility] [address] [place] [address] Dr. Kashif Martinez ALT [Catalytic activity/Vol] 30 U/L Normal 14-59 [facility] Comment on above: Performed By: #### C BC #### [facility] [address] [place] [address] Dr. Kashif Martinez Anion gap [Moles/Vol] 14.5 mmol/L Normal [facility] Comment on above: Performed By: #### C BC #### [facility] [address] [place] [address] Dr. Kashif Martinez AST [Catalytic activity/Vol] 22 U/L Normal 15-37 [facility] Comment on above: Performed By: #### C BC #### [facility] [address] [place] [address] Dr. Kashif Martinez Bilirubin [Mass/Vol] 0.4 mg/dL Normal 0.2-1.0 [facility] Comment on above: Performed By: #### C BC #### [facility] [address] [place] [address] Dr. Kashif Martinez Calcium [Mass/Vol] 9.0 mg/dL Normal 8.5-10.1 [facility] Comment on above: Performed By: #### C BC #### [facility] [address] [place] [address] Dr. Kashif Martinez Chloride [Moles/Vol] 104 mmol/L Normal 98-107 [facility] Comment on above: Performed By: #### C BC #### [facility] [address] [address] [address] Kashif Martinez CO2 [Moles/Vol] 26.7 mmol/L Normal 21.0-32.0 [facility] Comment on above: Performed By: #### C BC #### [facility] [address] [address] [address] Kashif Martinez Creatinine [Mass/Vol] 0.75 mg/dL Normal 0.55-1.02 [facility] Comment on above: Performed By: #### C BC #### [facility] [address] [address] [address] Kashif Martinez EGFR-AF MARSHALLESE >60 Normal >=60 [facility] Comment on above: Performed By: #### C BC #### [facility] [address] [place] [address] Dr. Kashif Martinez EGFR-NON AF MARSHALLESE >60 Normal >=60 [facility] Comment on above: Performed By: #### C BC #### [facility] [address] [place] [address] Dr. Kashif Martinez Globulin (S) [Mass/Vol] 4.1 g/dL Normal [facility] Comment on above: Performed By: #### C BC #### [facility] [address] [place] [address] Dr. Kashif Martinez Glucose [Mass/Vol] 104 mg/dL Normal 74-106 [facility] Comment on above: Performed By: #### C BC #### [facility] [address] [address] [address] Kashif Martinez Potassium [Moles/Vol] 4.2 mmol/L Normal 3.5-5.1 [facility] Comment on above: Performed By: #### C BC #### [facility] [address] [place] [address] Dr. Kashif Martinez Protein [Mass/Vol] 7.9 g/dL Normal 6.4-8.2 [facility] Comment on above: Performed By: #### C BC #### [facility] [address] [place] [address] Dr. Kashif Martinez Sodium [Moles/Vol] 141 mmol/L Normal 136-145 [facility] Comment on above: Performed By: #### C BC #### [facility] [address] [place] [address] Dr. Kashif Martinez Urea nitrogen [Mass/Vol] 18.0 mg/dL Normal 7.0-18.0 [facility] Comment on above: Performed By: #### C BC #### [facility] [address] [place] [address] Dr. Kashif Martinez Urea nitrogen/Creatinine [Mass ratio] 24.0 mg/mg Normal [facility] Comment on above: Performed By: #### C BC #### [facility] [address] [place] [address] Dr. Kashif Martinez T4on 02-07-2023 T4 [Mass/Vol] 11.30 ug/dL Normal 4.80-13.90 [facility] Comment on above: Performed By: #### C BC #### [facility] [address] [place] [address] Dr. Kashif Martinez TSHon 02-07-2023 TSH 0.954 uIU/mL Normal 0.358-3.740 [facility] Comment on above: Performed By: #### C MP, TSH, T7, LIPID #### [facility] [address] [place] [address] Dr. Kashif Martinez VITAMIN D 25 OHon 02-07-2023 VIT D 25-OH 66.3 ng/mL Normal [facility] Comment on above: Performed By: #### V ITAD, IRON #### [facility] [address] [place] [address] Dr. Kashif Martinez VIT D RANGES SEE BELOW Normal [facility] Comment on above: Result Comment: <20 ng/mL Vit D deficient 20 - <30 ng/mL Vit D insufficient 30 - 100 ng/mL Vit D sufficient >100 ng/mL Potential Toxicity Performed By: #### V ITAD, IRON #### [facility] [address] [place] [address] Dr. Kashif Martinez XR CSPINE 2_3 VIEWSon [...] by: TA TERRELL Date: 2022-10-26 06:29 Normal [facility] XR CSPINE MIN 4 VIEWSon 09-26 [...] by: TA TERRELL Date: 2022-10-19 09:40 Normal [facility] XR TSPINE 3 VIEWSon 10-19-19 XR TSPINE 3 VIEWS EXAMINATION: XR TSPI [...] by: TA TERRELL Date: 2022-10-19 09:45 Normal [facility] WOUND CULTURE, AEROBIC AND A NAEROBICon 05-24-2022 WOUND CULTURE, AEROBIC AND ANAEROBIC Specimen source XXX: SHOULDER RIGHT 2 Performed at [place] [address] Service Cmnt XXX-Imp: HOLD 2 WEEKS FOR P ACNES Performed at [place] [address] Microscopic observation: NO ORGANISMS SEEN 1+ WBC Bacteria identified: NO GROWTH 14 DAYS Performed at [place] [id number] : FINAL 05/24/2022 [facility] Comment on above: Performed By: #### W NDA #### [place] [address] WOUND CULTURE, AEROBIC AND ANAEROBIC Specimen source XXX: SHOULDER RIGHT 4 Performed at [place] [address] Service Cmnt XXX-Imp: HOLD 2 WEEKS FOR P ACNES Performed at [place] [address] Microscopic observation: NO ORGANISMS SEEN NO WBC SEEN Bacteria identified: NO GROWTH 14 DAYS Performed at [address] [id number] : FINAL 05/24/2022 [facility] Comment on above: Performed By: #### W NDA #### [address] [address] WOUND CULTURE, AEROBIC AND ANAEROBIC Specimen source XXX: SHOULDER RIGHT 3 Performed at [place] [address] Service Cmnt XXX-Imp: HOLD 2 WEEKS FOR P ACNES Performed at [place] [address] Microscopic observation: NO ORGANISMS SEEN NO WBC SEEN Bacteria identified: NO GROWTH 14 DAYS Performed at [address] [address] : FINAL 05/24/2022 [facility] Comment on above: Performed By: #### W NDA #### [facility] [address] [place] [id number] WOUND CULTURE, AEROBIC AND ANAEROBIC Specimen source XXX: SHOULDER RIGHT 1 Performed at [place] [address] Service Cmnt XXX-Imp: HOLD 2 WEEKS FOR P ACNES Performed at [place] [address] Microscopic observation: NO ORGANISMS SEEN 2+ WBC Bacteria identified: NO GROWTH 14 DAYS Performed at [place] [id number] : FINAL 05/24/2022 [facility] Comment on above: Performed By: #### W NDA #### [place] [address] [place] [address] SARS-CoV-2,INFLUENZA A/B NUC LEIC ACID TESTon 05-09-2022 EUA DISCLAIMER [facility] Comment on above: Result Comment: This [...] is terminated or revoked sooner. Performed at [place] [address] FLU A by PCR Negative [facility] FLU B by PCR Negative [facility] SARS-CoV-2 (COVID-19) RNA MOISES+probe Ql (Unsp spec) Negative Normal NEG [facility] URINE CULTUREon 04-29-2022 Bacteria identified Cx Nom (U) Specimen source XXX: CLEAN VOIDED MIDSTREAM Performed at [place] [address] Service Cmnt XXX-Imp: NONE Reflexed from [id number] Performed at [place] [address] CC Number Ur: 10,[id number],000 CFU/ml Bacteria identified: NORMAL UROGENITAL VANCE Performed at [address] [place] [address] : FINAL 04/29/2022 Normal [facility] Comment on above: Performed By: #### U R #### [address] [place] [address] CBC with Diffon 04-27-2022 AB IMMATURE NEUT 0.03 K/UL Normal 0.0-0.1 [facility] ABS BASO 0.02 K/UL Normal 0.00-0.22 [facility] ABS EOS 0.29 K/UL Normal 0-0.45 [facility] ABS NEUTROPHILS 5.33 K/UL Normal 1.8-7.7 [facility] ABS.NEUT.CALCULATED 5.33 K/UL Normal [facility] Comment on above: Result Comment: [place] [facility] [place] [address] [facility] [address] Basophils/100 WBC (Bld) 0.20 % Normal 0-1 [facility] DIFF TYPE AUTO DIFF Normal [facility] Eosinophils/100 WBC (Bld) 3.40 % High 0-3 [facility] Erythrocyte distribution width (RBC) [Ratio] 13.0 % Normal 11.7-15.0 [facility] Hematocrit (Bld) [Volume fraction] 43.8 % Normal 36-44 [facility] Hemoglobin (Bld) [Mass/Vol] 14.3 g/dL Normal 12.0-15.0 [facility] Lymphocytes (Bld) [#/Vol] 1.93 10*3/uL Normal 1.2-3.2 [facility] Lymphocytes/100 WBC (Bld) 22.50 % Normal 20-40 [facility] MCH (RBC) [Entitic mass] 29.9 pg Normal 26-34 [facility] MCHC 32.6 % Normal 31-37 [facility] MCV (RBC) [Entitic vol] 91.4 fL Normal 80-100 [facility] MEAN PLT VOL 8.9 CU Normal 7.0-12.6 [facility] Monocytes (Bld) [#/Vol] 0.96 10*3/uL High 0-0.8 [facility] Monocytes/100 WBC (Bld) 11.20 % High 0-8 [facility] Neutrophils/100 WBC (Bld) 0.40 % Normal 0.0-1.0 [facility] Neutrophils/100 WBC (Bld) 62.30 % Normal 50-70 [facility] Platelets (Bld) [#/Vol] 340 10*3/uL Normal 150-450 [facility] RBC (Bld) [#/Vol] 4.79 10*6/uL Normal 4.0-4.9 [facility] RDW-SD 44.8 FL Normal 37.0-54.0 [facility] WBC (Bld) [#/Vol] 8.6 10*3/uL Normal 4.5-11.0 [facility] COMPREHENSIVE METABOLIC PANE Rodriguez 04-27-2022 Albumin [Mass/Vol] 4.7 g/dL Normal 3.5-5.0 [facility] Albumin/Globulin [Mass ratio] 1.7 {ratio} Normal 1.5-3.0 [facility] ALP [Catalytic activity/Vol] 101 U/L Normal 35-125 [facility] ALT [Catalytic activity/Vol] 20 U/L Normal 5-40 [facility] Anion gap [Moles/Vol] 11 mmol/L Normal 0-19 [facility] AST [Catalytic activity/Vol] 24 U/L Normal 5-40 [facility] Bilirubin [Mass/Vol] 0.2 mg/dL Normal 0.1-1.2 [facility] Calcium [Mass/Vol] 10.0 mg/dL Normal 8.5-10.4 [facility] Chloride [Moles/Vol] 107 mmol/L Normal 97-107 [facility] CO2 [Moles/Vol] 25 mmol/L Normal 24-31 [facility] Creatinine [Mass/Vol] 0.6 mg/dL Normal 0.4-1.6 [facility] ESTIMATED GFR 92 mL/min/1.73 m2 Normal [facility] Comment on above: Result Comment: CALCULATIONS OF ESTIMATED GFR ARE PERFORMED USING THE 2020 CKD-EPI STUDY REFIT EQUATION WITHOUT THE RACE VARIABLE FOR THE IDMS-TRACEABLE CREATININE METHODS. https://jasn.asnjournals.org/content//ASN.1596274 988 Performed at [facility] [place] [address] [facility] [address] Globulin (S) [Mass/Vol] 2.8 g/dL Normal 1.9-3.7 [facility] Glucose [Mass/Vol] 92 mg/dL Normal 65-99 [facility] Potassium [Moles/Vol] 4.5 mmol/L Normal 3.4-5.1 [facility] Protein [Mass/Vol] 7.5 g/dL Normal 5.9-7.9 [facility] Sodium [Moles/Vol] 143 mmol/L Normal 133-145 [facility] Urea nitrogen [Mass/Vol] 25 mg/dL Normal 8-25 [facility] Urea nitrogen/Creatinine [Mass ratio] 41.7 mg/mg High 8-21 [facility] HEMOGLOBIN A1con 04-27-2022 HbA1c (Bld) [Mass fraction] 5.4 % Normal 4.0-6.0 [facility] Comment on above: Result Comment: Hemo [...] mg/dl 10% ............................... 240 mg/dl Performed at [place] [address] [address] [facility] [address] Performed By: #### G LYC #### [facility] [address] [place] [address] UA-REFLEX TO CULTUREon 04-27 BACT PRESENT Normal [facility] EPI Normal [facility] Comment on above: Result Comment: MODE RATE TRANSITIONAL MODERATE SQUAMOUS RBC OCC Normal 0-3 [facility] Urinalysis dipstick W Reflex Microscopic panel (U) MANUAL MICROSCOPIC URINES Normal [facility] WBC 5-9 Normal 0-3 [facility] OTHER Normal [facility] Comment on above: Result Comment: PRES ENT MUCOUS PRESENT URINE FAT Performed at [address] [address] Bacteria identified Cx Nom (U) CULTURE BEING ORDERED BASED ON LEUKOCYTE ESTERASE Normal [facility] Comment on above: Result Comment: CULT URE BEING ORDERED BASED ON LEUKOCYTE ESTERASE Performed at [address] [address] BILI Negative Normal [facility] Clarity (U) CLEAR Normal [facility] Color (U) YELLOW Normal [facility] GLUC Negative Normal NEG [facility] Hemoglobin Ql (U) Negative Normal NEG [facility] KET Negative Normal NEG [facility] LEUK TRACE Abnormal NEG [facility] NIT Negative Normal NEG [facility] pH (U) 5.5 [pH] Normal 4.6-8.0 [facility] PROT Negative Normal NEG [facility] SP GRAV,URINE 1.020 Normal 1.005-1.030 [facility] URO 0.2 MG/DL Normal 0-1.0 [facility] INSULINon 03-04-2022 Insulin 16.0 uIU/mL Normal 2.6-24.9 [facility] Comment on above: Performed By: #### C BC #### [facility] [address] [place] [address] Dr. Kashif Martinez T4 LABCORPon 03-04-2022 T4 [Mass/Vol] 9.2 ug/dL Normal 4.5-12.0 [facility] Comment on above: Performed By: #### C BC #### [facility] [address] [place] [address] Dr. Kashif Martinez CBC AUTO DIFFon 03-03-2022 BASO # 0.0 103/ul Normal 0.0-0.1 [facility] Comment on above: Performed By: #### C BC #### [facility] [address] [place] [address] Dr. Kashif Martinez Basophils/100 WBC (Bld) 0.4 % Normal 0.2-2.0 [facility] Comment on above: Performed By: #### C BC #### [facility] [address] [place] [address] Dr. Kashif Martinez EO # 0.0 103/ul Normal 0.0-0.7 [facility] Comment on above: Performed By: #### C BC #### [facility] [address] [place] [address] Dr. Kashif Martinez Eosinophils/100 WBC (Bld) 0.1 % Critically low 0.9-7.0 [facility] Comment on above: Performed By: #### C BC #### [facility] [address] [place] [address] Dr. Kashif Martinez Erythrocyte distribution width (RBC) [Ratio] 13.7 % Normal 11.0-15.0 [facility] Comment on above: Performed By: #### C BC #### [facility] [address] [place] [address] Dr. Kashif Martinez Hematocrit (Bld) [Volume fraction] 42.0 % Normal 36.0-48.0 [facility] Comment on above: Performed By: #### C BC #### [facility] [address] [place] [address] Dr. Kashif Martinez Hemoglobin (Bld) [Mass/Vol] 13.6 g/dL Normal 12.0-16.0 [facility] Comment on above: Performed By: #### C BC #### [facility] [address] [place] [address] Dr. Kashif Martinez IG # 0.03 10e3/ul Normal 0.00-0.03 [facility] Comment on above: Performed By: #### C BC #### [facility] [address] [place] [address] Dr. Kashif Martinez IG % 0.4 % Normal 0.0-0.5 [facility] Comment on above: Performed By: #### C BC #### [facility] [address] [place] [address] [address] Kashif Martinez LYMPH # 1.2 103/ul Normal 1.2-3.8 [facility] Comment on above: Performed By: #### C BC #### [facility] [address] [place] [address] Dr. Kashif Martinez Lymphocytes/100 WBC (Bld) 16.4 % Critically low 20.5-60.0 [facility] Comment on above: Performed By: #### C BC #### [facility] [address] [place] [address] Dr. Kashif Martinez MANUAL DIFF REQ NO Normal [facility] Comment on above: Performed By: #### C BC #### [facility] [address] [place] [address] Dr. Kashif Martinez MCH (RBC) [Entitic mass] 29.6 pg Normal 26.7-34.0 [facility] Comment on above: Performed By: #### C BC #### [facility] [address] [place] [address] Dr. Kashif Martinez MCHC (RBC) [Mass/Vol] 32.4 g/dL Normal 29.9-35.2 [facility] Comment on above: Performed By: #### C BC #### [facility] [address] [place] [address] Dr. Kashif Martinez MCV (RBC) [Entitic vol] 91.5 fL Normal 81.0-99.0 [facility] Comment on above: Performed By: #### C BC #### [facility] [address] [place] [address] Dr. Kashif Martinez MONO # 0.8 103/ul Normal 0.3-0.8 [facility] Comment on above: Performed By: #### C BC #### [facility] [address] [place] [address] Dr. Kashif Martinez Monocytes/100 WBC (Bld) 10.5 % Normal 1.7-12.0 [facility] Comment on above: Performed By: #### C BC #### [facility] [address] [place] [address] [address] Kashif Martinez NEUT # 5.3 103/ul Normal 1.4-6.5 [facility] Comment on above: Performed By: #### C BC #### [facility] [address] [place] [address] Dr. Kashif Martinez Neutrophils/100 WBC (Bld) 72.2 % Normal 43.0-75.0 [facility] Comment on above: Performed By: #### C BC #### [facility] [address] [place] [address] Dr. Kashif Martinez Platelet mean volume (Bld) [Entitic vol] 8.8 fL Critically low 9.5-13.5 [facility] Comment on above: Performed By: #### C BC #### [facility] [address] [place] [address] Dr. Kashif Martinez PLT 340 103/ul Normal 150-450 [facility] Comment on above: Performed By: #### C BC #### [facility] [address] [place] [address] Dr. Kashif Martinez RBC 4.59 106/ul Normal 4.20-5.40 [facility] Comment on above: Performed By: #### C BC #### [facility] [address] [place] [address] Dr. Kashif Martinez WBC 7.3 103/ul Normal 4.0-11.0 [facility] Comment on above: Performed By: #### C BC #### [facility] [address] [place] [address] Dr. Kashif Martinez FREE THYROXINE INDEX T7on FTI 3.04 Normal 1.30-4.50 [facility] Comment on above: Performed By: #### C MP, TSH, T7, LIPID #### [facility] [address] [place] [address] Dr. Kashif Martinez T3U 33.0 % Normal 30.0-39.0 [facility] Comment on above: Performed By: #### C MP, TSH, T7, LIPID #### [facility] [address] [place] [address] Dr. Kashif Martinez T4 [Mass/Vol] 9.20 ug/dL Normal 4.80-13.90 [facility] Comment on above: Performed By: #### C MP, TSH, T7, LIPID #### [facility] [address] [place] [address] [address] Kashif Martinez GLYCOHEMOGLOBIN A1Con 2021 ADA RECOMMENDATION SEE BELOW Normal [facility] Comment on above: Result Comment: ADA RECOMMENDED LIMIT 4.0 - 6.0 ADA THERAPEUTIC TARGET < 7.0 ACTION SUGGESTED > 7.0 Performed By: #### C BC #### [facility] [address] [place] [address] [address] Kashif Martinez Glucose [Mass/Vol] 103 mg/dL Normal [facility] Comment on above: Performed By: #### C BC #### [facility] [address] [place] [address] Dr. Kashif Martinez HbA1c (Bld) [Mass fraction] 5.2 % Normal 4.5-6.2 [facility] Comment on above: Performed By: #### C BC #### [facility] [address] [place] [address] Dr. Kashif Martinez IRONon 03-03-2022 Iron [Mass/Vol] 85.0 ug/dL Normal 50.0-170.0 [facility] Comment on above: Performed By: #### C BC #### [facility] [address] [place] [address] Dr. Kashif Martinez LIPID PROFILEon 03-03-2022 CHOL-HDL RATIO NORM SEE BELOW Normal [facility] Comment on above: Result Comment: 3.3 - 4.4 LOW RISK 4.4 - 7.1 AVERAGE RISK 7.1 - 11.0 MODERATE RISK >11.0 HIGH RISK Performed By: #### C MP, TSH, T7, LIPID #### [facility] [address] [place] [address] Dr. Kashif Martinez Cholesterol [Mass/Vol] 219 mg/dL Critically high <=200 [facility] Comment on above: Performed By: #### C MP, TSH, T7, LIPID #### [facility] [address] [place] [address] [address] Kashif Martinez Cholesterol in HDL [Mass/Vol] 51 mg/dL Normal 40-60 [facility] Comment on above: Performed By: #### C MP, TSH, T7, LIPID #### [facility] [address] [place] [address] [address] Kashif Martinez Cholesterol in LDL [Mass/Vol] 141.4 mg/dL Normal [facility] Comment on above: Performed By: #### C MP, TSH, T7, LIPID #### [facility] [address] [place] [address] [address] Kashif Martinez Cholesterol.total/Ch olesterol in HDL [Mass ratio] 4.3 {ratio} Normal [facility] Comment on above: Performed By: #### C MP, TSH, T7, LIPID #### [facility] [address] [place] [address] [address] Kashif Martinez HDL NORMAL > or = 60 mg/dl - LO W CARDIOVASCULAR RISK <40 mg/dl - HIGH CARDIOVASCULAR RISK Normal [facility] Comment on above: Performed By: #### C MP, TSH, T7, LIPID #### [facility] [address] [place] [address] [address] Kashif Martinez LDL CALC NORMAL SEE BELOW Normal [facility] Comment on above: Result Comment: <100 mg/dl OPTIMAL 100 - 129 mg/dl NEAR OR ABOVE OPTIMAL 130 - 159 mg/dl BORDERLINE HIGH 160 - 189 mg/dl HIGH >190 mg/dl VERY HIGH Performed By: #### C MP, TSH, T7, LIPID #### [facility] [address] [place] [address] [address] Kashif Martinez Triglyceride [Mass/Vol] 133 mg/dL Normal <=150 [facility] Comment on above: Performed By: #### C MP, TSH, T7, LIPID #### [facility] [address] [place] [address] [address] Kashif Martinez VLDL CALC 26.6 mg/dL Normal [facility] Comment on above: Performed By: #### C MP, TSH, T7, LIPID #### [facility] [address] [place] [address] [address] Kashif Martinez PROF 14(COMP METB)on 022 Albumin [Mass/Vol] 3.7 g/dL Normal 3.4-5.0 [facility] Comment on above: Performed By: #### C MP, TSH, T7, LIPID #### [facility] [address] [place] [address] [address] Kashif Martinez Albumin/Globulin [Mass ratio] 1.0 {ratio} Normal [facility] Comment on above: Performed By: #### C MP, TSH, T7, LIPID #### [facility] [address] [place] [address] [address] Kashif Martinez ALP [Catalytic activity/Vol] 83 U/L Normal 46-116 [facility] Comment on above: Performed By: #### C MP, TSH, T7, LIPID #### [facility] [address] [place] [address] Dr. Kashif Martinez ALT [Catalytic activity/Vol] 30 U/L Normal 14-59 [facility] Comment on above: Performed By: #### C MP, TSH, T7, LIPID #### [facility] [address] [place] [address] [address] Kashif Martinez Anion gap [Moles/Vol] 14.3 mmol/L Normal [facility] Comment on above: Performed By: #### C MP, TSH, T7, LIPID #### [facility] [address] [place] [address] [address] Kashif Martinez AST [Catalytic activity/Vol] 21 U/L Normal 15-37 [facility] Comment on above: Performed By: #### C MP, TSH, T7, LIPID #### [facility] [address] [place] [address] [address] Kashif Martinez Bilirubin [Mass/Vol] 0.4 mg/dL Normal 0.2-1.0 [facility] Comment on above: Performed By: #### C MP, TSH, T7, LIPID #### [facility] [address] [address] [address] Kashif Martinez Calcium [Mass/Vol] 9.2 mg/dL Normal 8.5-10.1 [facility] Comment on above: Performed By: #### C MP, TSH, T7, LIPID #### [facility] [address] [place] [address] Dr. Kashif Martinez Chloride [Moles/Vol] 106 mmol/L Normal 98-107 [facility] Comment on above: Performed By: #### C MP, TSH, T7, LIPID #### [facility] [address] [place] [address] Dr. Kashif Martinez CO2 [Moles/Vol] 26.2 mmol/L Normal 21.0-32.0 [facility] Comment on above: Performed By: #### C MP, TSH, T7, LIPID #### [facility] [address] [place] [address] Dr. Kashif Martinez Creatinine [Mass/Vol] 0.70 mg/dL Normal 0.55-1.02 [facility] Comment on above: Performed By: #### C MP, TSH, T7, LIPID #### [facility] [address] [place] [address] Dr. Kashif Martinez EGFR-AF MARSHALLESE >60 Normal >=60 [facility] Comment on above: Performed By: #### C MP, TSH, T7, LIPID #### [facility] [address] [place] [address] Dr. Kashif Martinez EGFR-NON AF MARSHALLESE >60 Normal >=60 [facility] Comment on above: Performed By: #### C MP, TSH, T7, LIPID #### [facility] [address] [place] [address] Dr. Kashif Martinez Globulin (S) [Mass/Vol] 3.6 g/dL Normal [facility] Comment on above: Performed By: #### C MP, TSH, T7, LIPID #### [facility] [address] [place] [address] Dr. Kashif Martinez Glucose [Mass/Vol] 101 mg/dL Normal 74-106 [facility] Comment on above: Performed By: #### C MP, TSH, T7, LIPID #### [facility] [address] [place] [address] Dr. Kashif Martinez Potassium [Moles/Vol] 4.5 mmol/L Normal 3.5-5.1 [facility] Comment on above: Performed By: #### C MP, TSH, T7, LIPID #### [facility] [address] [place] [address] Dr. Kashif Martinez Protein [Mass/Vol] 7.3 g/dL Normal 6.4-8.2 [facility] Comment on above: Performed By: #### C MP, TSH, T7, LIPID #### [facility] [address] [place] [address] Dr. Kashif Martinez Sodium [Moles/Vol] 142 mmol/L Normal 136-145 [facility] Comment on above: Performed By: #### C MP, TSH, T7, LIPID #### [facility] [address] [place] [address] Dr. Kashif Martinez Urea nitrogen [Mass/Vol] 18.0 mg/dL Normal 7.0-18.0 [facility] Comment on above: Performed By: #### C MP, TSH, T7, LIPID #### [facility] [address] [place] [address] Dr. Kashif Martinez Urea nitrogen/Creatinine [Mass ratio] 25.7 mg/mg Normal [facility] Comment on above: Performed By: #### C MP, TSH, T7, LIPID #### [facility] [address] [place] [address] Dr. Kashif Martinez TSHon 03-03-2022 TSH 0.760 uIU/mL Normal 0.358-3.740 [facility] Comment on above: Performed By: #### C MP, TSH, T7, LIPID #### [facility] [address] [place] [address] Dr. Kashif Martinez TSH RANGE SEE BELOW Normal [facility] Comment on above: Result Comment: <0.3 4 UIU/ml HYPERTHYROID 0.34-5.60 UIU/ml EUTHYROID >5.60 UIU/ml HYPOTHYROID Performed By: #### C MP, TSH, T7, LIPID #### [facility] [address] [place] [address] Dr. Kashif Martinez VITAMIN D 25 OHon 03-03-2022 VIT D 25-OH 68.1 ng/mL Normal [facility] Comment on above: Performed By: #### C BC #### [facility] [id number] Kashif Martinez VIT D RANGES SEE BELOW Normal [facility] Comment on above: Result Comment: <20 ng/mL Vit D deficient 20 - <30 ng/mL Vit D insufficient 30 - 100 ng/mL Vit D sufficient >100 ng/mL Potential Toxicity Performed By: #### C BC #### [facility] [address] [address] [address] Kashif Martinez BMPon 04-06-2019 Anion gap [Moles/Vol] 10 mmol/L 10 - 20 mmol/L [facility] Calcium [Mass/Vol] 9.2 mg/dL 8.4 - 10. 2 mg/dL [facility] Chloride [Moles/Vol] 110 mmol/L High 98 - 10 8 mmol/L [facility] Creatinine [Mass/Vol] 0.73 mg/dL 0.6 - 1.2 mg/dL [facility] GFR/1.73 sq M predicted among non-blacks MDRD (S/P/Bld) [Vol rate/Area] The eGFR should be used for monitoring renal function only and not for medication dosing. [facility] GFR/1.73 sq M.predicted CKD-EPI (S/P/Bld) [Vol rate/Area] 81 >=60 mL/min/1.73 m2 [facility] Glucose [Mass/Vol] 117 mg/dL High 65 - 99 mg/dL [facility] HCO3 [Moles/Vol] 24 mmol/L 21 - 32 mmol/L [facility] Interpretation and review of laboratory results Abnormal [facility] Potassium [Moles/Vol] 3.8 mmol/L 3.5 - 5.1 mmol/L [facility] Sodium [Moles/Vol] 140 mmol/L 135 - 145 mmol/L [facility] Urea nitrogen [Mass/Vol] 16 mg/dL 8 - 25 mg/dL [facility] [facility] Urea nitrogen/Creatinine [Mass ratio] 21.9 mg/mg High [facility] CBC WITH AUTO DIFFERENTIALon 04-06-2019 Basophils (Bld) [#/Vol] 0.02 10*3/uL [facility] Basophils/100 WBC (Bld) 0.3 % [facility] Eosinophils (Bld) [#/Vol] 0.04 10*3/uL [facility] Eosinophils/100 WBC (Bld) 0.6 % [facility] Erythrocyte distribution width (RBC) [Entitic vol] 15.8 % High 11.6 - 14.8 % [facility] Hematocrit (Bld) [Volume fraction] 42.1 % 36 - 46 % [facility] Hemoglobin (Bld) [Mass/Vol] 13.7 g/dL 12 - 16 g/dL [facility] Immature granulocytes (Bld) [#/Vol] 0.02 10*3/uL [facility] Immature granulocytes/100 WBC (Bld) 0.30 % [facility] Comment on above: The IG parameter is the percentage of metamyelocytes, myelocytes, and promyelocytes. Interpretation and review of laboratory results Abnormal [facility] Lymphocytes (Bld) [#/Vol] 1.24 10*3/uL [facility] Lymphocytes/100 WBC (Bld) 17.8 % [facility] MCH (RBC) [Entitic mass] 27.3 pg 26 - 34 pg [facility] MCHC (RBC) [Mass/Vol] 32.5 g/dL 31 - 37 g/dL [facility] MCV (RBC) [Entitic vol] 83.9 fL 80 - 100 fL [facility] Monocytes (Bld) [#/Vol] 0.82 10*3/uL [facility] Monocytes/100 WBC (Bld) 11.8 % [facility] Neutrophils (Bld) [#/Vol] 4.82 10*3/uL [facility] Neutrophils/100 WBC (Bld) 69.2 % [facility] Nucleated RBC (Bld) [#/Vol] 0.00 10*3/uL [facility] Nucleated RBC/100 WBC (Bld) [Ratio] 0.0 % [facility] Platelet mean volume (Bld) [Entitic vol] 8.2 fL Low 9 - 15.5 fL [facility] Platelets (Bld) [#/Vol] 273 10*3/uL [facility] RBC (Bld) [#/Vol] 5.02 10*6/uL [facility] WBC (Bld) [#/Vol] 6.96 10*3/uL [facility] ECG 12-LEADon 04-06-2019 Lesley Dawknis 04/06/2019 12:08 PM EKG 12-lead Date/Time: 04/06/2019 11:35 AM Performed by: Shell Hawkins MD Authorized by: Shell Hawkins MD Interpreted by ED attending physician Rhythm: sinus rhythm BPM: 80 Conduction: complete RBBB ST Segments: ST segments normal T Waves: T waves normal Other: no other findings [facility] Otheron 04-06-2019 Extra Tube Hold for add-ons. [facility] Comment on above: Auto resulted. HIP RIGHT 1 OR 2 VWS WITH PE LVISon 11-01-2018 HIP RIGHT 1 OR 2 VWS WITH PELVIS [facility] Department of Radiology [address] [place] [address] ======== Patient Name: QING FISCHER : 1945 Sex: F Age: Race: White Pt. Location: Patient Status: Ordered Date: 11/01/2018 1:55:00 PM Completed Date: 11/01/2018 01:58 PM Requesting Provider: LAURIE TOWNSEND Attending Provider: Report Copy To: Signs & Symptoms: S72.141D Displ intertroch fx r femur, subs for clos fx w routn heal I10 History: Ivy Comments: , , , Ordering Provider - ALURIE TOWNSEND PA-C , Exam: HIP RIGHT 1 [...] skeleton Electronically signed by:Wolfgang Ibarra. Transcribed by: [email or web address], User Resident: Electronically Signed by: WOLFGANG IBARRA @ 11/01/2018 02:05 PM Normal [facility] Comment on above: Order Comment: No: D o not add to previous draw HIP RIGHT 1 OR 2 VWS WITH PE LVISon 10-01-2018 HIP RIGHT 1 OR 2 VWS WITH PELVIS [facility] Department of Radiology [address] [place] [id number] ======== Patient Name: QING FISCHER : [...] fracture Electronically signed by:Wolfgang Ibarra. Transcribed by: [email or web address], User Resident: Electronically Signed by: WOLFGANG IBARRA @ 10/01/2018 04:11 PM Normal [facility] Comment on above: Order Comment: No: D o not add to previous draw HIP RIGHT 1 OR 2 VWS WITH PE LVISon 08-24-2018 HIP RIGHT 1 OR 2 VWS WITH PELVIS [facility] Department of Radiology [address] [place] [id number] ======== Patient Name: QING FISCHER : 1945 Sex: F Age: Race: White Pt. 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 Transcribed by: [email or web address], User Resident: Electronically Signed by: WOLFGANG IBARRA @ 08/24/2018 02:16 PM Normal [facility] Comment on above: Order Comment: No: D o not add to previous draw HIP RIGHT 1 OR 2 VWS WITH PE LVISon 07-26-2018 HIP RIGHT 1 OR 2 VWS WITH PELVIS [facility] Department of Radiology [address] [place] [id number] ======== Patient Name: QING FISCHER : 1945 Sex: F Age: Race: White Pt. Location: Patient Status: Ordered Date: 07/26/2018 9:40:00 AM Completed Date: 07/26/2018 09:43 AM Requesting Provider: LAURIE TOWNSEND Attending Provider: Report Copy To: Signs & Symptoms: S72.141D Displ intertroch fx r femur, subs for clos fx w routn heal I10 History: Booker Comments: , Views (X-RAY, HIP): Radiologic Protocol [...] alignment Electronically signed by:Wolfgang Ibarra. Transcribed by: [email or web address], User Resident: Electronically Signed by: WOLFGANG IBARRA @ 07/26/2018 01:34 PM Normal [facility] Comment on above: Order Comment: No: D o not add to previous draw BASIC METABOLIC PANELon 10-2 Calcium mass conc 8.3 mg/dL Low 8.6-10.3 [facility] Comment on above: Order Comment: No: D o not add to previous draw Performed By: #### 0 0071 #### [facility] [address] [place] [address], [facility] Chloride molar conc 103 mmol/L Normal 98-107 [facility] Comment on above: Order Comment: No: D o not add to previous draw Performed By: #### 0 0071 #### [facility] [address] [place] [address], [place] CO2 molar conc 26 mmol/L Normal 21-31 [facility] Comment on above: Order Comment: No: D o not add to previous draw Performed By: #### 0 0071 #### [facility] [address] [place] [address], [place] Creatinine mass conc 0.56 mg/dL Low 0.60-1.20 The [facility] Comment on above: Order Comment: No: D o not add to previous draw Performed By: #### 0 0071 #### [facility] [address] [place] [address], [place] GFR/1.73 sq M predicted among blacks MDRD vol rate/area (S/P/Bld) mL/min/{1.73_m2} Normal >60 [facility] Comment on above: Order Comment: No: D o not add to previous draw Result Comment: Calc ulation may not be valid for patients over 70 years Performed By: #### 0 0071 #### [facility] [address] [place] [address], [facility] GFR/1.73 sq M predicted among non-blacks MDRD vol rate/area (S/P/Bld) mL/min/{1.73_m2} Normal >60 [facility] Comment on above: Order Comment: No: D o not add to previous draw Result Comment: Calc ulation may not be valid for patients over 70 years Performed By: #### 0 0071 #### [facility] [address] [place] [address], [facility] Glucose mass conc 114 mg/dL High 70-100 [facility] Comment on above: Order Comment: No: D o not add to previous draw Performed By: #### 0 0071 #### [facility] [address] [place] [address], [facility] Potassium molar conc 4.0 mmol/L Normal 3.5-5.1 The [facility] Comment on above: Order Comment: No: D o not add to previous draw Performed By: #### 0 0071 #### [facility] [address] [place] [address], [facility] Sodium molar conc 136 mmol/L Normal 136-145 [facility] Comment on above: Order Comment: No: D o not add to previous draw Performed By: #### 0 0071 #### [facility] [address] [place] [address], [facility] Urea nitrogen mass conc 9 mg/dL Normal 7-25 The [facility] Comment on above: Order Comment: No: D o not add to previous draw Performed By: #### 0 0071 #### [facility] [address] [place] [address], [facility] CBC COMPLETE BLOOD COUNTon Erythrocyte distribution width Ratio (RBC) 13.8 % Normal 11.5-15.0 The [facility] Comment on above: Order Comment: No: D o not add to previous draw Performed By: #### 5 [id number] #### [facility] [address] [place] [address], [facility] Hematocrit Volume Fraction (Bld) 30.5 % Low 36.0-45.0 The [facility] Comment on above: Order Comment: No: D o not add to previous draw Performed By: #### 5 [id number] #### [facility] [address] [place] [address], [facility] Hemoglobin mass conc (Bld) 10.1 g/dL Low 12.0-15.0 The [facility] Comment on above: Order Comment: No: D o not add to previous draw Performed By: #### 5 [id number] #### [facility] [address] [place] [address], [facility] MCH Entitic mass (RBC) 29.9 pg Normal 27.0-33.0 The [facility] Comment on above: Order Comment: No: D o not add to previous draw Performed By: #### 5 [id number] #### [facility] [address] [place] [address], [facility] MCHC mass conc (RBC) 33.1 g/dL Normal 32.0-35.0 The [facility] Comment on above: Order Comment: No: D o not add to previous draw Performed By: #### 5 [id number] #### [facility] [address] [facility] [place] [address], [facility] MCV Entitic volume (RBC) 90.2 fL Normal 82.0-98.0 The [facility] Comment on above: Order Comment: No: D o not add to previous draw Performed By: #### 5 [id number] #### [facility] [address] [place] [address], [facility] Nucleated RBC/100 WBC Ratio (Bld) 0 % Normal 0-0 The [facility] Comment on above: Order Comment: No: D o not add to previous draw Performed By: #### 5 [id number] #### [facility] [address] [facility] [address] PLAT CNT 180 10*3/uL Normal 150-400 The [facility] Comment on above: Order Comment: No: D o not add to previous draw Performed By: #### 5 [id number] #### [facility] [address] RBC #/vol (Bld) 3.38 10*6/uL Low 3.80-5.00 [facility] Comment on above: Order Comment: No: D o not add to previous draw Performed By: #### 5 [id number] #### [facility] [address] [facility]. [address] WBC #/vol (Bld) 8.43 10*3/uL Normal 4.00-10.60 [facility] Comment on above: Order Comment: No: D o not add to previous draw Performed By: #### 5 [id number] #### [facility] [address] Operative Reporton 10-20-201 8 Operative Report MR#: [id number] I [facility] Pt. Name: Qing Fischer Room #: [id number] Discharge Date: Birthdate: 1945 OPERATIVE REPORT DATE [...] P/Fabien Nunez M.D. Date Trans: 07/13/2018 11:30 P/mmo [id number] cc: Nona Mcknight M.D. [address] [place] [address] Normal The [facility] BASIC METABOLIC PANELon - Calcium mass conc 9.2 mg/dL Normal 8.6-10.3 [facility] Comment on above: Order Comment: No: D o not add to previous draw Performed By: #### 0 0071 #### [facility] [address] [place] [address], [place] Chloride molar conc 104 mmol/L Normal 98-107 [facility] Comment on above: Order Comment: No: D o not add to previous draw Performed By: #### 0 0071 #### [facility] [address] [place] [address], [place] CO2 molar conc 28 mmol/L Normal 21-31 [facility] Comment on above: Order Comment: No: D o not add to previous draw Performed By: #### 0 0071 #### [facility] [address] [place] [address], [place] Creatinine mass conc 0.66 mg/dL Normal 0.60-1.20 The [facility] Comment on above: Order Comment: No: D o not add to previous draw Performed By: #### 0 0071 #### [facility] [address] [place] [address], [place] GFR/1.73 sq M predicted among blacks MDRD vol rate/area (S/P/Bld) mL/min/{1.73_m2} Normal >60 [facility] Comment on above: Order Comment: No: D o not add to previous draw Result Comment: Calc ulation may not be valid for patients over 70 years Performed By: #### 0 0071 #### [facility] [address] [place] [address], [place] GFR/1.73 sq M predicted among non-blacks MDRD vol rate/area (S/P/Bld) mL/min/{1.73_m2} Normal >60 [facility] Comment on above: Order Comment: No: D o not add to previous draw Result Comment: Calc ulation may not be valid for patients over 70 years Performed By: #### 0 0071 #### [facility] [address] [place] [address], [facility] Glucose mass conc 117 mg/dL High 70-100 [facility] Comment on above: Order Comment: No: D o not add to previous draw Performed By: #### 0 0071 #### [facility] [address] [place] [address], [facility] Potassium molar conc 4.1 mmol/L Normal 3.5-5.1 The [facility] Comment on above: Order Comment: No: D o not add to previous draw Performed By: #### 0 0071 #### [facility] [address] [place] [address], [facility] Sodium molar conc 138 mmol/L Normal 136-145 [facility] Comment on above: Order Comment: No: D o not add to previous draw Performed By: #### 0 0071 #### [facility] [address] [place] [address], [facility] Urea nitrogen mass conc 16 mg/dL Normal 7-25 The [facility] Comment on above: Order Comment: No: D o not add to previous draw Performed By: #### 0 0071 #### [facility] [address] [place] [address], [facility] CBC COMPLETE BLOOD COUNTon Erythrocyte distribution width Ratio (RBC) 13.9 % Normal 11.5-15.0 The [facility] Comment on above: Order Comment: No: D o not add to previous draw Performed By: #### 5 [id number] #### [facility] [address] Hematocrit Volume Fraction (Bld) 41.6 % Normal 36.0-45.0 The [facility] Comment on above: Order Comment: No: D o not add to previous draw Performed By: #### 5 [id number] #### [facility] [address] [place] [id number], [facility] Hemoglobin mass conc (Bld) 13.3 g/dL Normal 12.0-15.0 The [facility] Comment on above: Order Comment: No: D o not add to previous draw Performed By: #### 5 0608 #### [facility] [address] [place] [address], [facility] MCH Entitic mass (RBC) 29.0 pg Normal 27.0-33.0 The [facility] Comment on above: Order Comment: No: D o not add to previous draw Performed By: #### 5 0608 #### [facility] [address] MCHC mass conc (RBC) 32.0 g/dL Normal 32.0-35.0 The [facility] Comment on above: Order Comment: No: D o not add to previous draw Performed By: #### 5 0608 #### [facility] [address] [place] [address], [facility] MCV Entitic volume (RBC) 90.8 fL Normal 82.0-98.0 The [facility] Comment on above: Order Comment: No: D o not add to previous draw Performed By: #### 5 [id number] #### [facility] [address] [place] [address], [facility] Nucleated RBC/100 WBC Ratio (Bld) 0 % Normal 0-0 The [facility] Comment on above: Order Comment: No: D o not add to previous draw Performed By: #### 5 0608 #### [facility] [address] [place] [address], [facility] PLAT CNT 189 10*3/uL Normal 150-400 [facility] Comment on above: Order Comment: No: D o not add to previous draw Performed By: #### 5 0608 #### [facility] [address] [facility] [place] [address], [facility] RBC #/vol (Bld) 4.58 10*6/uL Normal 3.80-5.00 [facility] Comment on above: Order Comment: No: D o not add to previous draw Performed By: #### 5 0608 #### [facility] [address] [facility] [place] [address], [facility] WBC #/vol (Bld) 9.00 10*3/uL Normal 4.00-10.60 [facility] Comment on above: Order Comment: No: D o not add to previous draw Performed By: #### 5 0608 #### [facility] [address] LOWER EXTREMITY WO CONTRA ST RIGHTon 07-13-2018 CT LOWER EXTREMITY WO CONTRAST RIGHT [facility] Department of Radiology [address] [place] [phone] ======== Patient Name: QING FISCHER : 1945 Sex: F Age: Race: White Pt. Location: [id number] Patient Status: I Ordered Date: 07/13/2018 7:15:00 [...] definitive. Electronically signed by:Wolfgang Ibarra. Transcribed by: [email or web address], User Resident: Electronically Signed by: WOLFGNAG IBARRA @ 07/13/2018 10:26 AM Normal The [facility] Comment on above: Order Comment: R/O F ractures, R hip for basicervical fx HIP RIGHT 1 OR 2 VWS WITH PE LVISon 07-13-2018 HIP RIGHT 1 OR 2 VWS WITH PELVIS [facility] Department of Radiology [address] [place] [phone] ======== Patient Name: QING FISCHER : 1945 Sex: F Age: Race: White Pt. Location: [id number] Patient Status: I Ordered Date: 07/13/2018 12:55:00 [...] findings. Electronically signed by:Anjel Fitzgerald. Transcribed by: [email or web address], User Resident: ZACARIAS LECHUGA Electronically Signed by: ANJEL FITZGERALD @ 07/14/2018 08:57 PM I personally read this/these film(s) with this resident Normal The [facility] Comment on above: Order Comment: Right hip VHS with POC GLUCOSE LABon 07-13-2018 Glucose mass conc 128 mg/dL High 70-100 [facility] Comment on above: Performed By: #### 8 [id number] #### [facility] [address] [facility]. [address] PROTHROMBIN TIMEon 8 INR Coag RelTime (PPP) 1.03 {INR} Normal 0.91-1.16 [facility] Comment on above: Order [...] 1995;[id number]. Performed By: #### 5 6101 #### [facility] [address] [facility]. [address] Prothrombin time (PT) Coag time (PPP) 13.5 s Normal 12.3-14.8 [facility] Comment on above: Order Comment: No: D o not add to previous draw Result Comment: ALL RESULTS MUST BE INTERPRETED WITH RESPECT TO BLOOD DRAWING ARTIFACT OR DILUTION ERROR OF ANTICOAGULANT AT THE TIME OF SAMPLING. Performed By: #### 5 6101 #### [facility] [address] RBC'S 2 UNITSon 07-13-2018 CROSSMATCH INTERP 1 COMP Normal [facility] Comment on above: Order Comment: Other Performed By: #### 8 6002 #### [facility] [address] [place] [address], [place] CROSSMATCH INTERP 2 COMP Normal [facility] Comment on above: Order Comment: Other Performed By: #### 8 6002 #### [facility] [address] [place] [address], [place] Protein mass conc 336 g/dL Normal [facility] Comment on above: Order Comment: Other Performed By: #### 8 6002 #### [facility] [address] [place] [address], [place] Protein mass conc RE Normal [facility] Comment on above: Order Comment: Other Result Comment: Resu lt changed by IF on 07/16/2018 23:15. The previous value was XM. Performed By: #### 8 6002 #### [facility] [address] [place] [address], [facility] UNIT ABO 1 O Normal [facility] Comment on above: Order Comment: Other Performed By: #### 8 6002 #### [facility] [address] [place] [address], [facility] UNIT ABO 2 O Normal The [facility] Comment on above: Order Comment: Other Performed By: #### 8 6002 #### [facility] [address] [place] [address], [facility] UNIT ID 1 [id number] Normal The [facility] Comment on above: Order Comment: Other Performed By: #### 8 6002 #### [facility] [address] [place] [address], [place] UNIT ID 2 [id number] Normal The [facility] Comment on above: Order Comment: Other Performed By: #### 8 6002 #### [facility] [address] [place] [address], [place] UNIT RH 1 Positive Normal The [facility] Comment on above: Order Comment: Other Performed By: #### 8 6002 #### [facility] [address] [place] [address], [facility] UNIT RH 2 Positive Normal The [facility] Comment on above: Order Comment: Other Performed By: #### 8 6002 #### [facility] [address] [place] [address], [facility] TYPE AND SCREENon 07-13-2018 ABO INTERPRETATION O Normal [facility] Comment on above: Performed By: #### 6 2586 #### [facility] [address] [place] [address], [facility] RH INTERPRETATION Positive Normal [facility] Comment on above: Performed By: #### 6 2586 #### [facility] [address] [place] [address], [facility] Vital Signs Date Time Vital Sign Value Performing Clinician Betty burden 01-11-2024 14:39-0400 Body height 152.4 cm Wolfgang Chou PA-C Work Phone: [facility] 01-11-2024 14:39-0400 Body weight 60.78 kg Wolfgang Chou PA-C Work Phone: [facility] 07-18-2023 11:37-0400 Body height 152.4 cm Tony Combs MD Work Phone: [facility] 07-18-2023 11:37-0400 Body weight 62.14 kg Tony Combs MD Work Phone: [facility] 04-06-2019 12:11-0400 Body Temperature 98.1 [degF] [facility] 04-06-2019 12:11-0400 BP Diastolic 71 mm[Hg] [facility] 04-06-2019 12:11-0400 BP Systolic 148 mm[Hg] [facility] 04-06-2019 12:11-0400 Pulse (Heart Rate) 68 /min [facility] 04-06-2019 12:11-0400 Pulse Oximetry 98 % Shell Hawkins [facility] 04-06-2019 11:52-0400 Respiratory Rate 18 /min Shell Hawkins [facility] 04-06-2019 10:43-0400 Body weight 65.86 kg Shell Hawkins [facility] Encounters Encounter Date Encounter Type Care Provider Facility Start: 06-04-2025 End: 06-04-2025 ambulatory Nona Mcknight [facility] Work Phone: Start: 06-04-2025 End: 06-04-2025 Departed Referred Nona Sutton MD -LAB [facility] Start: 07-23-2024 End: 07-23-2024 ambulatory Lonny VASQUEZ Facility:[facility] Start: 07-23-2024 End: 07-23-2024 Patient encounter procedure Lonny VASQUEZ [facility] [place] Start: 06-28-2024 [facility]: [facility] Start: 04-25-2024 End: 04-25-2024 ambulatory NONA MCKNIGHT Facility:[facility] Start: 04-25-2024 End: 04-25-2024 Patient encounter procedure Wolfgang Chou PA-C Work Phone: Orthopaedics Comment on above: S/P reverse total sh oulder arthroplasty, left (Primary Dx) Start: 04-25-2024 End: 04-25-2024 Subsequent hospital visit by physician Meagan De La Fuente [facility] Work Phone: Radiology Comment on above: S/P reverse total sh oulder arthroplasty, left [Z96.612] Start: 01-11-2024 End: 01-11-2024 ambulatory NONA MCKNIGHT Facility:[facility] Start: 01-11-2024 End: 01-11-2024 Patient encounter procedure Wolfgang Chou PA-C Work Phone: Orthopaedics Comment on above: S/P reverse total sh oulder arthroplasty, left (Primary Dx) Start: 01-11-2024 ambulatory NONA MCKNIGHT Facility: [facility] Start: 01-11-2024 End: 01-11-2024 Subsequent hospital visit by physician [facility] Radiology Comment on above: S/P reverse total sh oulder arthroplasty, left [Z96.612] Start: 12-26-2023 End: 12-26-2023 ambulatory Romina Hallgren OTR/L Work Phone: [facility] Comment on above: Decreased range of m otion of left shoulder (Primary Dx); S/P reverse total shoulder arthroplasty, left; Nontraumatic complete tear of rotator cuff, left; Rotator cuff tear arthropathy of left shoulder Start: 12-19-2023 End: 12-19-2023 ambulatory Romina Hallgren OTR/L Work Phone: [facility] Comment on above: Decreased range of m otion of left shoulder (Primary Dx); S/P reverse total shoulder arthroplasty, left; Nontraumatic complete tear of rotator cuff, left; Rotator cuff tear arthropathy of left shoulder Start: 12-12-2023 End: 12-12-2023 ambulatory Romina Hallgren OTR/L Work Phone: [facility] Comment on above: Decreased range of m otion of left shoulder (Primary Dx); S/P reverse total shoulder arthroplasty, left; Nontraumatic complete tear of rotator cuff, left; Rotator cuff tear arthropathy of left shoulder Start: 12-05-2023 End: 12-05-2023 ambulatory Romina Hallgren OTR/L Work Phone: [facility] Comment on above: Decreased range of m otion of left shoulder (Primary Dx); S/P reverse total shoulder arthroplasty, left; Nontraumatic complete tear of rotator cuff, left; Rotator cuff tear arthropathy of left shoulder Start: 11-28-2023 End: 11-28-2023 ambulatory NONA MCKNIGHT Facility:[facility] Start: 11-21-2023 End: 11-21-2023 ambulatory Romina Hallgren OTR/L Work Phone: [facility] Comment on above: Decreased range of m otion of left shoulder (Primary Dx); S/P reverse total shoulder arthroplasty, left; Nontraumatic complete tear of rotator cuff, left; Rotator cuff tear arthropathy of left shoulder Start: 11-14-2023 End: 11-14-2023 ambulatory Romina Hallgren OTR/L Work Phone: [facility] Comment on above: Decreased range [...] Start: 11-09-2023 End: 11-09-2023 ambulatory NONA MCKNIGHT Facility:[facility] Start: 11-09-2023 End: 11-09-2023 Subsequent hospital visit by physician Meagan [facility] Work Phone: Radiology Comment on above: S/P reverse total sh oulder arthroplasty, left [Z96.612] Start: 11-06-2023 End: 11-06-2023 ambulatory Rominaángel Thompsongren OTR/L Work Phone: [facility] Comment on above: Decreased range of m otion of left shoulder (Primary Dx); S/P reverse total shoulder arthroplasty, left; Nontraumatic complete tear of rotator cuff, left; Rotator cuff tear arthropathy of left shoulder Start: 10-30-2023 End: 10-30-2023 ambulatory TONY COMBS Facility:[facility] Start: 10-26-2023 End: 10-26-2023 ambulatory TONY COMBS Facility:[facility] Start: 10-24-2023 End: 10-24-2023 ambulatory WOLFGANG CHOU Facility:[facility] Start: 10-16-2023 End: 10-16-2023 ambulatory WOLFGANG CHOU Facility:[facility] Start: 10-12-2023 End: 10-12-2023 ambulatory WOLFGANG CHOU Facility:[facility] Start: 10-02-2023 End: 10-02-2023 ambulatory NONA MCKNIGHT Facility:[facility] Start: 09-29-2023 End: 09-30-2023 ambulatory WOLFGANG CHOU Facility:[facility] Start: 09-27-2023 End: 09-27-2023 ambulatory Nilam Garnica [facility] Start: 09-26-2023 ambulatory Nilam Bairddesmond Facility: [facility] [place] Start: 09-15-2023 End: 09-15-2023 ambulatory TONY COMBS Facility:[facility] Start: 09-12-2023 Orders Only Tony mosley MD Work Phone: Orthopaedics Comment on above: Closed displaced fra cture of acromial process, unspecified laterality, sequela (Primary Dx); Status post reverse arthroplasty of left shoulder Start: 09-11-2023 End: 09-12-2023 ambulatory TONY COMBS Facility:[facility] Start: 09-07-2023 Encounter for other preprocedural examination NONA MCKNIGHT [facility] Start: 09-07-2023 End: 09-07-2023 ambulatory KRISTI BANUELOSSFORD Facility:[facility] Start: 08-29-2023 End: 08-29-2023 ambulatory TONY COMBS Facility:[facility] Start: 08-29-2023 End: 08-29-2023 Patient [...] left Start: 08-01-2023 ambulatory TONY COMBS [facility] y:[facility] Start: 07-18-2023 End: 07-18-2023 ambulatory TONY COMBS Facility:[facility] Start: 07-18-2023 End: 07-18-2023 Patient [...] 07-18-2023 Subsequent hospital visit by physician [facility] Radiology Comment on above: Chronic right should er pain [M25.511, G89.29] Start: 02-08-2023 End: 02-09-[address] NONA MCKNIGHT . Facility:[facility] Start: 02-07-2023 End: 02-08-[address] NONA MCKNIGHT . Facility:[facility] Start: 10-25-2022 End: 10-26-[address] PRABHJOT ANDERSON Facility:[facility] Start: 10-18-2022 End: 10-19-[address] DOCTOR GARCIA Facility:[facility] Start: 03-03-2022 End: 03-04-[address] NONA MCKNIGHT . Facility: Start: 10-20-2020 End: 10-20-2020 Orders Only Ministerio Gross Work Phone: [facility] Start: 04-06-2019 End: 04-06-2019 Emergency department patient visit [facility] Start: 04-06-2019 End: 04-06-2019 Emergency department patient visit Shell Hawkins Work Phone: [facility] Emergency Department Comment on above: Acute non-recurrent frontal sinusitis (Primary Dx) Start: 11-01-2018 End: 11-02-2018 Patient encounter procedure LAURIE TOWNSEND Facility:[facility] Start: 10-01-2018 End: 10-02-2018 Patient encounter procedure LAURIE TOWNSEND Facility:[facility] Start: 08-24-2018 End: 08-25-2018 Patient encounter procedure LAURIE TOWNSEND Facility:[facility] Start: 07-26-2018 End: 07-27-2018 Patient encounter procedure LAURIE TOWNSEND Facility:[facility] Start: 07-13-2018 End: 07-19-2018 Evaluation and management of inpatient NONA MCKNIGHT Facility:[facility] Procedures Date Procedure Procedure Detail Performing Clinician Start: 04-25-2024 Radex shoulder compl ete minimum 2 views Wolfgang Chou PA-C Work Phone: Start: 01-11-2024 Radex shoulder compl ete minimum 2 views Wolfgang José Antonio THAKKAR Work Phone: Start: 11-09-2023 Radex shoulder compl ete minimum 2 views Wolfgang Sheikhnatan THAKKAR Work Phone: Start: 09-07-2023 Antibody screen NONA MCKNIGHT Comment on above: Order Comment: Speci men Type: BLOOD SPECIMEN Ordering Facility: [facility] Address: [address] [place] [address] Performed By: #### T [id number] #### [facility]LOOD [facility] CLIA [id number] [facility] [address] Start: 04-06-2019 12 lead ECG Shell Hawkins Work Phone: Start: 04-06-2019 Basic metabolic 2000 panel - Serum or Plasma Shell Hawkins Work Phone: Start: 04-06-2019 Complete blood count with white cell differential, automated Shell Estlow Hawkins Work Phone: Start: 04-06-2019 Complete blood count with white cell differential, manual Shell Estlow Hawkins Work Phone: Start: 04-06-2019 LIGHT BLUE TOP Shell Es tlow Hawkins Work Phone: Start: 04-06-2019 LIGHT GREEN TOP Shell E stlow Hawkins Work Phone: Start: 04-06-2019 RAINBOW DRAW Shell Nogueira ow Hawkins Work Phone: Start: 07-13-2018 Antibody screen LAURIE TOWNSEND Comment on above: Performed By: #### [id number] #### [facility] [address] [facility] [place] [address], [facility] Start: 07-13-2018 INSERTION OF INT FIX INTO R UP FEMUR, OPEN APPROACH ABIODUN EBRAHEIM Start: 03-22-2007 Colonoscopy Lonny MANCUSO Arthroplasty of knee Lonny VASQUEZ Closed fracture of h ip (disorder) Lonny VASQUEZ Elbow fracture - héctor sed (disorder) Lonny VASQUEZ Hysterectomy Lonny VASQUEZ Partial shoulder replacement Lonny VASQUEZ Plan of Treatment Date Care Activity Detail Author Start: 09-12-2026 Diabetes Screening [facility] Start: 06-04-2025 Urine culture [facility] Start: 06-04-2025 [facility] Start: 06-04-2025 Bacteria identified in Urine by Culture Urine Culture [facility] Start: 04-27-2025 Diabetes Screening [facility] Start: 10-31-2024 End: 10-31-2024 Patient encounter procedure 10/31/2024 1:40 PM EST Office Visit Orthopaedics [address] [place], [place] [id number] Wolfgang Chou PA-C [address] [place], [place] [id number] 6 Month Follow Up - left shoulder pain Orthopaedics Comment on above: 6 Month Follow Up - left shoulder pain Start: 05-26-2024 Influenza vaccination Influenza Vacc ine (#1) [facility] Start: 10-27-2023 Covid-19 Vaccine ( season) Covid-19 Vaccine ( season) [facility] Start: 09-25-2023 Advance Directive Discussion Advance Directive Discussion [facility] Start: 09-25-2023 Behavioral Health Screening Behavioral Health Screening [facility] Start: 09-25-2023 [facility] Start: 09-25-2022 Advance Directive Discussion Advance Directive Discussion [facility] Start: 09-25-2022 Depression Assessment [facility] Start: 12-26-2010 Diabetes Screening Diabetes Screenin g [facility] Start: 2008 Bone Density Screening Bone Density Screening [facility] Start: 2008 Screening for osteoporosis Bone Density Screening [facility] Start: 2003 RSV Vaccine (1 - 1-d ose 60+ series) RSV Vaccine (1 - 1-dose 60+ series) [facility] Start: 1993 Shingrix Vaccine (1 of 2) Shingrix Vaccine (1 of 2) [facility] Start: 1962 Urine microalbumin profile DTaP,Tdap,Td Vaccine (1 - Tdap) [facility] Start: 1961 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 yadi Disease Visit Annual PCP Team Chronic Disease Visit [facility] Start: 1961 Anxiety Screening Anxiety Screening [facility] Start: 1961 Depression Screening Depression Scre ening [facility] End: 08-16-[address] CT [address] POST PROC[address] CT 3D POST PROCESSING Radiology Routine Rotator cuff tear arthropathy of left shoulder 1 Occurrences starting 07/18/2023 until 08/16/2024 [facility] Work Phone: Comment on above: 1 Occurrences starti ng 07/18/2023 until 08/16/2024 CT SHOULDER WO IVCON LEFT CT SHOULDER WO IVCON LEFT Radiology Routine Rotator cuff tear arthropathy of left shoulder Ordered: 07/18/2023 [facility] Work Phone: Comment on above: Ordered: 07/18/2023 XR SHOULDER GENERAL 3V OR MORE AP/TRUE AP/OTHER RIGHT XR SHOULDER GENERAL 3V OR MORE AP/TRUE AP/OTHER RIGHT Radiology Routine Chronic right shoulder pain 07/18/2023 12:37 PM EDT [facility] Work Phone: [facility] Immunizations Immunization Date Immunization Notes Care Provider Fa cility 06-26-2023 influenza virus vaccine, unspecified formulation [facility] [place] Work Phone: [facility] 07-18-2022 SARS-CoV-2 (COVID-19 ) [id number] Lonny VASQUEZ [facility] Sandra 06-24-2021 SARS-CoV-2 (COVID-19 ) mRNA BNT-162b2 vax Lonny VASQUEZ [facility] Comment on above: Result Comment: 2023: [id number] 11-15-2020 SARS-CoV-2 (COVID-19 ) mRNA BNT-162b2 garrett VASQUEZ [facility] Comment on above: Result Comment: 2023: [id number] 10-25-2020 SARS-CoV-2 (COVID-19 ) mRNA BNT-162b2 garrett RAYMUNDOL [facility] Comment on above: Result Comment: 2023: [id number] Payers Date Payer Category Payer Self-pay 2021 Unknown [id number] 2017 Medicare ANTHEM MANAGED Lesley BECK MEDIBLUE ESSENTIAL/PLUS/CONNECT/SNP O [id number] 2017-Present [id number] 2017 Medicare ANTHEM MANAGED Lesley BECK MEDIBLUE ESSENTIAL/PLUS/CONNECT/SNP O xxxxxxxxxxxx 2017-Present [id number] 1959 Unknown [id number] 1945 Unknown [id number] 1943 Unknown [id number] 1943 Unknown [id number] 1943 Unknown [id number] 1943 Unknown [id number] [id number] 1943 Unknown [id number] [id number] 1943 Unknown [id number] [id number] 1943 Unknown [id number] [id number] 1943 Unknown [id number] [id number] 1943 Unknown [id number] [id number] 1943 Unknown [id number] 1943 Unknown [id number] [id number] 1943 Unknown [id number] [id number] Medicare [id number] Unknown [id number] Social History Date Type Detail Facility Tobacco smoking stat [facility] Unknown if ever smoked [facility] Start: 1945 Sex Assigned At Not on file [facility] Start: 09-27-2023 [facility] Start: 03-16-2015 End: 04-25-2024 Alcohol intake Current drinker of alcohol (finding) [facility] Start: 07-18-2023 History of Social function [facility] Start: 07-18-2023 Area Deprivation Index [facility] National Score (1-10 0), lower number is lower risk 86 [facility] [place] Start: 11-09-2007 Alcohol Comment 1-2 glasses of wine with dinner most nights [facility] Start: 09-08-2023 [facility] smoking consumption unknown [facility] Work Phone: Sex Female (finding) [facility] Start: 1945 Sex Assigned At Female F [facility] Medical Equipment Procedure Code Equipment Code Equipment Origin al Text Equipment Identifier Dates Cement Simplex P Tobramycin Bone Full Dose Radiopaque Preblend Sterile - [id number] Start: 09-11-2023 Trabecular Metal Reverse Plus Shoulder Head 36mm 0deg [id number] Start: 09-11-2023 Liner 36mm 12d 6 5d Trabecular Metal Polyethylene H+6mm Shoulder Reverse - [id number] Start: 09-11-2023 Screw Ncb 4.5mm [id number]-64wf 30mm Bone Inverse Reverse Lock Sterile - [id number] Start: 09-11-2023 Wire Liz 1 .6mm Stainless Steel 5.5in Fixation Trocar Smooth Guide - [id number] Start: 09-11-2023 Cement Simplex P Tobramycin Bone Full Dose Radiopaque Preblend Sterile - [id number] Start: 09-11-2023 Trabecular Metal Reverse Plus Base Plate 15mm [id number] Start: 09-11-2023 Stem 12mm Trabec ular Metal Tivanium 130mm Humeral Reverse Sterile Shoulder - [id number] Start: 09-11-2023 Screw Ncb Anatom ical Shoulder 4.5mm [id number]-64wf 33mm Bone Inverse Reverse - [id number] Start: 09-11-2023 Wire Liz 1 .6mm Stainless Steel 5.5in Fixation Trocar Smooth Guide - [id number] Start: 09-11-2023 Clinical Notes 07-18-2023 to 04-25-2024 Wolfgang Chou PA-C - 04/25/2024 2:19 PM Wolfgang Mcnamara PA-C - 01/11/2024 3:42 PM Tammy Rodriges Tech - 01/11/2024 12:30 PM Romina Menjivar, OLIVIAR/Cristopher - 12/26/2023 3:51 PM EDT Note Date & Type Note Facility 04-25-2024 History of Present illness Narrative Patient Name: QING FISCHER [facility] No: [id number] Date of Service: April 25, 2024 [facility] Established patient returns for interval follow-up [...] symptoms. This note was partially generated using [email or web address] voice recognition system and as such may contain grammatical or word errors Wolfgang Chou PA-C April 25, 2024 documented in this encounter [facility] 02-29-2024 Note HNO ID: [id number] Author: ROMINA DARNELL OTR/Cristopher Service: ? Author [...] scheduled additional follow-up appointments. Romina Darnell, OTR/L #[id number] [facility] 01-11-2024 Note HNO ID: [id number] Author: WOLFGANG CHOU PA-C Service: ? Author Type: Physician Corporate Communications Specialist Type: Progress Notes Filed: 01/11/2024 15:50 Note Text: Patient Name: QING FISCHER [facility] No: [id number] Date of Service: January 11, 2024 [facility] Patient returns for follow up approximately 4 [...] sooner. This note was partially generated using [email or web address] voice recognition system and as such may contain grammatical or word errors Wolfgang Chou PA-C January 11, 2024 [facility] 01-11-2024 History of Present illness Narrative Patient Name: QING FISCHER [facility] No: [id number] Date of Service: January 11, 2024 [facility] Patient returns for follow up approximately 4 [...] sooner. This note was partially generated using [employer] voice recognition system and as such may contain grammatical or word errors Wolfgang Chou PA-C January 11, 2024 documented in this encounter [facility] 01-11-2024 History of Present illness [...] PATIENT PRESENTS WITH AN IMPLANTABLE OR ATTACHED EXTRACTOR TENDER RAW STOCK: No RADIOLOGY DEPARTMENT: General X-ray: Exam(s) Completed: Upper Extremity X-Ray(s): Shoulder, AP / TRUE AP left / PA Y-View PERIPHERAL IV DATA: Not applicable SIGNED BY: Aston Rodrigues January 11, 2024 2:28 PM documented in this encounter [facility] 01-11-2024 Note HNO ID: [id number] Author: TAMMY LEVY Tech Service: ? Author Type: Finance Intern Type: Progress Notes Filed: 01/11/2024 14:29 Note [...] PATIENT PRESENTS WITH AN IMPLANTABLE OR ATTACHED EXTRACTOR TENDER RAW STOCK: No RADIOLOGY DEPARTMENT: General X-ray: Exam(s) Completed: Upper Extremity X-Ray(s): Shoulder, AP / TRUE AP left / PA Y-View PERIPHERAL IV DATA: Not applicable SIGNED BY: Aston Rodrigues January 11, 2024 2:28 PM [facility] 12-26-2023 Note HNO ID: [id number] Author: ROMINA DARNELL OTR/L Service: ? Author [...] Planned: 2 Planned Treatment Interventions: Therapeutic exercise (96915), Manual therapy (18500), Self-mcfp management (48586), Patient/Family/Caregiver Education PLAN FOR NEXT VISIT: pt [...] L Shoulder Exte (more content not included)... [facility] 12-26-2023 History of Present illness Narrative Episode [...] Planned: 2 Planned Treatment Interventions: Therapeutic exercise (37896), Manual therapy (76553), Self-mcfp management (56598), Patient/Family/Caregiver Education PLAN FOR NEXT VISIT: pt [...] Session Stop Time : 1540 RAHUL Olsen #[id number] documented in this encounter [facility] 12-19-2023 Note HNO ID: [id number] Author: ROMINA DARNELL OTR/L Service: ? Author [...] Session Stop Time : 1537 ELSY Olsen/Cristopher #[id number] [facility] 12-19-2023 History of Present illness Narrative Episode [...] Session Stop Time : 1537 RAHUL Olsen #[id number] documented in this encounter [facility] 12-12-2023 Note HNO ID: [id number] Author: ROMINA DARNELL OTR/L Service: ? Author [...] : 1449 Session Stop Time : 1541 ELSY Olsen/Cristopher #[id number] [facility] 12-12-2023 History of Present illness Narrative Episode [...] Session Stop Time : 1541 RAHUL Olsen #[id number] documented in this encounter [facility] 12-05-2023 Note HNO ID: [id number] Author: ROMINA DARNELL OTR/L Service: ? Author Type: Occupational Therapist Type: Progress Notes Filed: 12/05/2023 16:51 Note Text: Episode Visit Count: 6 Therapist That Will Accept/Oversee The Plan Of Care: Miladis Robertson, OTR/L Start of Care Date: 09/15/23 Onset [...] : 1451 Session Stop Time : 1531 Romina DarnellOLIVIAR/L #[id number] [facility] 12-05-2023 History of Present illness Narrative Episode [...] Session Stop Time : 1531 RAHUL Olsen #[id number] documented in this encounter [facility] 11-28-2023 Note HNO ID: [id number] Author: ROMINA DARNELL OTR/L Service: ? Author [...] : 1355 Session Stop Time : 1448 RAHUL Olsen #[id number] [facility] 11-21-2023 Note HNO ID: [id number] Author: ROMINA DARNELL OTR/L Service: ? Author [...] Planned: 4 Planned Treatment Interventions: Therapeutic exercise (59951), Manual therapy (95922), Self-mcfp management (50386), Patient/Family/Caregiver Education PLAN FOR NEXT VISIT: continue [...] prior session while (more content not included)... [facility] 11-21-2023 History of Present illness Narrative Episode [...] Planned: 4 Planned Treatment Interventions: Therapeutic exercise (05013), Manual therapy (56084), Self-mcfp management (04761), Patient/Family/Caregiver Education PLAN FOR NEXT VISIT: continue [...] Session Stop Time : 1532 RAHUL Olsen #[id number] documented in this encounter [facility] 11-14-2023 Note HNO ID: [id number] Author: ROMINA DARNELL OTR/L Service: ? Author [...] Session Stop Time : 1542 Romina Darnell OTR/L #[id number] [facility] 11-14-2023 History of Present illness Narrative Episode Visit Count: 5 in 2023, 1 in 2022 Therapist That Will Accept/Oversee The Plan Of Care: ELSY Zarate/Cristohper Start of Care Date: 09/15/23 Onset Date: [...] exercises-review and update as needed, continue with AARDENISE for L shoulder SUBJECTIVE: 9 weeks s/p [...] : 1458 Session Stop Time : 1542 RAHUL Olsen #[id number] documented [facility] [facility] 11-09-2023 Note HNO ID: [id number] Author: WOLFGANG CHOU PA-C Service: ? Author Type: Physician Corporate Communications Specialist Type: Progress Notes Filed: 11/27/2023 13:57 Note Text: Patient Name: QING FISCHER [facility] No: [id number] Date of Service: November 09, 2023 [facility] Postoperative patient presents for suture removal [...] symptoms. This note was partially generated using [place] [employer] recognition system and as such may contain grammatical or word errors Wolfgang Chou PA-C November 09, 2023 [facility] 11-09-2023 History of Present illness Narrative Patient Name: QING FISCHER [facility] No: [id number] Date of Service: November 09, 2023 [facility] Postoperative patient presents for suture removal [...] symptoms. This note was partially generated using [email or web address] voice recognition system and as such may contain grammatical or word errors Wolfgang Chou PA-C November 09, 2023 documented in this encounter [facility] 11-09-2023 History of Present illness [...] PATIENT PRESENTS WITH AN IMPLANTABLE OR ATTACHED EXTRACTOR TENDER RAW STOCK: No RADIOLOGY DEPARTMENT: General X-ray: Exam(s) Completed: Upper Extremity X-Ray(s): Shoulder, AP / TRUE AP / SUPRA OUTLET left PERIPHERAL IV DATA: Not applicable SIGNED BY: LIZETH Pearson) November 09, 2023 10:22 AM documented in this encounter [facility] 11-09-2023 Note HNO ID: [id number] Author: MARLEEN CADET RT(R) Service: ? Author [...] PATIENT PRESENTS WITH AN IMPLANTABLE OR ATTACHED EXTRACTOR TENDER RAW STOCK: No RADIOLOGY DEPARTMENT: General X-ray: Exam(s) Completed: Upper Extremity X-Ray(s): Shoulder, AP / TRUE AP / SUPRA OUTLET left PERIPHERAL IV DATA: Not applicable SIGNED BY: RT Lili(R) November 09, 2023 10:22 AM [facility] 11-06-2023 Note HNO ID: [id number] Author: ROMINA DARNELL OTR/L Service: ? Author [...] Session Stop Time : 1456 ELSY Olsen/Cristopher #[id number] [facility] 11-06-2023 History of Present illness Narrative Episode Visit Count: 4 Therapist That Will Accept/Oversee The Plan Of Care: RAHUL Zarate Start of Care Date: 09/15/23 Onset Date: 09/11/23 Plan of Care Certification Date: 09/15/23 Next Certification Due Date: 12/14/23 Patient Identified by Name and Date of : Yes REHABILITATION AND SPORTS THERAPY OCCUPATIONAL THERAPY TREATMENT NOTE ASSESSMENT: Qing Lesley Fischer tolerated the session with no issues. [...] Session Stop Time : 1456 ELSY Olsen/Cristopher #[id number] documented in this encounter [facility] 10-26-2023 Note HNO ID: [id number] Author: TONY COMBS MD Service: ? Author Type: Physician Type: Progress Notes Filed: 10/31/2023 13:19 Note Text: Patient Name: QING Sutton AALIYAH [facility] No: [id number] Date of Service: October 24, 2023 [facility] Patient returns for follow up approximately 6 [...] patient was offered a surgery/procedure at a [facility] facility. The surgeon/proceduralist and patient have [...] the consent form. MD Brook Mark MD [facility] 10-24-2023 Note HNO ID: [id number] Author: WOLFGANG CHOU PA-C Service: ? Author Type: Physician Corporate Communications Specialist Type: Progress Notes Filed: 10/26/2023 09:09 Note Text: Patient Name: QING FISCHER [facility] No: [id number] Date of Service: October 24, 2023 [facility] Patient returns for follow up approximately 6 weeks status post Left shoulder reverse total Shoulder Arthroplasty, extensive capsular release, biceps tenodesis, open reduction internal fixation of acromion fracture 09/11/[address] Combs. She continues to be pleased with her progress utilizing phase 1 protocols with occupational therapy. Pain is reported as minimal rated 0/10. 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 This note was partially generated using [email or web address] voice recognition system and as such may contain grammatical or word errors Wolfgang Chou PA-C October 24, 2023 [facility] 10-16-2023 Note HNO ID: [id number] Author: ROMINA DARNELL OTR/Cristopher Service: ? Author [...] of motion when permitted by / BIJAN.-progressing 10/16/23 Patient/patient's spouse will demonstrate [...] Planned: 4 Planned Treatment Interventions: Therapeutic exercise (64177), Manual therapy (30817), Self-mcfp management (76745), Patient/Family/Caregiver Education PLAN FOR NEXT VISIT: continue [...] half of resp (more content not included)... [facility] 10-12-2023 Note HNO ID: [id number] Author: ROMINA DARNELL OTR/L Service: ? Author [...] : 1357 Session Stop Time : 1452 RAHUL Olsen #[id number] [facility] 10-02-2023 Note HNO ID: [id number] Author: ROMINA DARNELL OTR/L Service: ? Author [...] 1135 Session Stop Time : 1231 Romina Darnell, OTR/L #[id number] [facility] 09-29-2023 Note HNO ID: [id number] Author: WOLFGANG CHOU PA-C Service: ? Author Type: Physician Corporate Communications Specialist Type: Progress Notes Filed: 10/23/2023 23:33 Note Text: [id number] Date of Service: September 29, [address] [facility] Patient returns for follow up status post [...] sooner. This note was partially generated using [email or web address] voice recognition system and as such may contain grammatical or word errors Wolfgang Chou PA-C September 29, 2023 [facility] 09-15-2023 Note HNO ID: [id number] Author: Miladis Robertson OTR/L Service: ? Author [...] No active shoulder motion; sling on multimedia production assistant with the exception for prescribed OT exercises [...] Injury: Other: See comments (wear and tear) [facility] OCCUPATIONAL THERAPY EVALUATION [...] Planned: 16 Planned Treatment Interventions: Therapeutic exercise (29920), Manual therapy (90181), Self-mcfp management (01637), Patient/Family/Caregiver Education (heat pack) PLAN FOR NEXT [...] Information: Prescription pre (more content not included)... [facility] 09-12-2023 Note HNO ID: [id number] Author: Juan Pope MD Service: Orthopaedic Surgery [...] Pope MD, PGY-2 Orthopaedic Surgery Personal cell/pager: [phone] Between 5PM to 7AM, on weekends or if urgent, please page the orthopaedic on-call resident at: [phone] ([phone]) for [facility] patients [phone] for [facility] patients [address] for [facility] patients [address] for [facility] patients [address] for [facility] patients [facility] 09-11-2023 Note HNO ID: [id number] Author: Floyd Ramos AA Service: ? Author Type: Agricultural Inspector Type: Anesthesia Procedure Notes Filed: 09/11/2023 1:11 [...] September 11, 2023 TIME: 1:11 PM CSN: [id number] [facility] 09-11-2023 Note HNO ID: [id number] Author: Sil Sanchez MD Service: Anesthesiology Author [...] September 11, 2023 TIME: 11:22 AM CSN: [id number] [facility] 08-29-2023 Note HNO ID: [id number] Author: Tony Combs MD Service: ? Author Type: Physician Type: Progress Notes Filed: 08/30/2023 2:03 PM Note Text: [facility] NOTE DEPARTMENT OF ORTHOPAEDICS Evaluation with Tony Combs Jr., M.D. Patient Name: QING FISCHER [facility] No: [id number] : 1945 Qing Fischer is a pleasant [...] patient was offered a surgery/procedure at a [facility] facility. The surgeon/proceduralist and patient have [...] Combs MD Recorded by: Luis Barney MD ([facility] 08-29-2023 History of Present illness Narrative [facility] NOTE DEPARTMENT OF ORTHOPAEDICS Evaluation with Tony Combs Jr., M.D. Patient Name: QING FISCHER Clinic No: [id number] : 1945 Qing Fischer is a pleasant [...] patient was offered a surgery/procedure at a [facility] facility. The surgeon/proceduralist and patient have [...] Barney MD (scribe) documented in this encounter [facility] 08-01-2023 Note HNO ID: [id number] Author: Sina Coronado RT(R) Service: Radiology Author [...] PERIPHERAL IV DATA: Not applicable SIGNED BY: Sina Coronado RT(R) August 01, 2023 12:37 PM [facility] 07-18-2023 Note HNO ID: [id number] Author: Tony Combs MD Service: ? Author Type: Physician Type: Progress Notes Filed: 07/22/2023 10:43 AM Note Text: [facility] NOTE DEPARTMENT OF ORTHOPAEDICS Evaluation with Tony Combs Jr., M.D. Patient Name: QING Sutton [facility] No: [id number] : 1945 This is an active 80 [...] this is been obtained. Recorded by: Barrington Freitas, [facility] 07-18-2023 Note HNO ID: [id number] Author: Jennifer Hernandez RT(Angel) Service: Radiology Author Type: Technologist Type: Progress [...] RT Shemar(R) July 18, 2023 12:38 PM [facility] 07-18-2023 Note HNO ID: [id number] Author: Diana Ayala RT(R) Service: Radiology Author Type: Finance Intern Type: Progress Notes Filed: 07/18/2023 12:03 PM [...] RT Kayla(R) July 18, 2023 12:02 PM [facility] 07-18-2023 History of Present illness Narrative [facility] NOTE DEPARTMENT OF ORTHOPAEDICS Evaluation with Tony Combs Jr., M.D. Patient Name: QING FISCHER [facility] No: [id number] : 1945 This is an active 80 [...] Barrington Freitas DO documented in this encounter [facility] 07-18-2023 History of Present illness [...] 2023 12:38 PM documented in this encounter [facility] Evaluation + Plan note No data available for this section [facility] [place] Evaluation note Diagnosis Pain Generalized pain Chronic right shoulder pain Pain in joint, shoulder region [facility] Diagnosis Rotator cuff tear arthropathy of left shoulder- Primary Chronic right shoulder pain Pain in joint, shoulder region Nontraumatic complete tear of rotator cuff, left Injury of tendon of long head of biceps, left, initial encounter Closed displaced fracture of acromial process, unspecified laterality, sequela documented [facility] Diagnosis Rotator cuff tear arthropathy of left shoulder- Primary Closed displaced fracture of acromial process, unspecified laterality, sequela Nontraumatic complete tear of rotator cuff, left Injury of tendon of long head of biceps, left, initial encounter Contracture of shoulder, left [facility] Diagnosis Closed displaced fracture of acromial process, unspecified laterality, sequela- Primary Status post reverse arthroplasty of left shoulder [facility] [place] [facility] Diagnosis Decreased range of motion of left shoulder- Primary S/P reverse total shoulder arthroplasty, 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, 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 documented [facility] [place] [facility]* Diagnosis S/P reverse total shoulder arthroplasty, left [facility] Diagnosis Decreased range of motion of left shoulder- Primary S/P reverse total shoulder arthroplasty, 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, 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 [facility] Diagnosis Decreased range of motion of left shoulder- Primary S/P reverse total shoulder arthroplasty, 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, 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 [facility] Diagnosis S/P reverse total shoulder arthroplasty, left- Primary Nontraumatic complete tear of rotator cuff, left Closed displaced fracture of acromial process, unspecified laterality, sequela [facility]* Diagnosis Decreased range of motion of left shoulder- Primary S/P reverse total shoulder arthroplasty, 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, 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 documented in this encounter [facility] note* Diagnosis S/P reverse total shoulder arthroplasty, left- Primary documented in this encounter [facility] note* Diagnosis S/P reverse total shoulder arthroplasty, left documented in this encounter [facility] note* Diagnosis S/P reverse total shoulder arthroplasty, left documented in this encounter [facility] note* Diagnosis Pre-op evaluation- Primary Preoperative examination, unspecified Hypothyroidism, unspecified type OAB (overactive bladder) Hypertonicity of bladder Gastroesophageal reflux disease without esophagitis Esophageal reflux S/P reverse total shoulder arthroplasty, left- Primary S/P reverse total shoulder arthroplasty, left documented in this encounter [facility] noteNo assessment information availableRegency Hospital [facility] Work Phone: Hospital Discharge instructions No data available for this section [facility] Progress note No data available for this section [facility] Reason for referral (narrative)* Diagnostic Procedure Only (Routine) - Closed Specialty Diagnoses / Procedures Referred By Ariel whelan Referred To Contact XR IMAGING Diagnoses Chronic right shoulder pain Procedures XR SHOULDER GENERAL 3V OR MORE AP/TRUE AP/OTHER RIGHT RADEX SHOULDER COMPLETE MINIMUM 2 [place] [address] [place] [address] X[facility] Imaging [place] [address] Referral ID Status Reason Start Date Expiration Date V isits Requested Visits Authorized [id number] Closed Auto-Generate d Referral 07/18/2023 08/16/2024 1 1 * Consult, Test, Treat (Routine) - Pending Review Specialty Diagnoses / Procedures Referred By Ariel whelan Referred To Contact Diagnoses Rotator cuff tear arthropathy of left shoulder Procedures REFER TO PACC - PRE ANESTHESIA CONSULTATION CLINIC OFFICE/OUTPATIENT [facility] 60-[place] [address] [address] [place] [address] Referral ID Status Reason Start Date Expiration Date Visits Requested Visits Authorized [id number] Pending Review PCP Requested Referral 3 07/17/2024 1 1 * MRI/CT (Routine) - Authorized Specialty Diagnoses / Procedures Referred By Diegoac t Referred To Contact CT IMAGING Diagnoses Rotator cuff tear arthropathy of left shoulder Procedures CT SHOULDER WO IVCON LEFT CT UPPER EXTREMITY W/[place] [address] [place] [address] [place] [address] Referral ID Status Reason Start Date Expiration Date Visits Requested Visits Authorized [id number] Authorized Auto-Generat ed Referral 3 08/16/2024 1 1 [facility] for referral (narrative)* Diagnostic Procedure Only (Routine) - Closed Specialty Diagnoses / Procedures Referred By Ariel whelan Referred To Contact XR IMAGING Diagnoses S/P reverse total shoulder arthroplasty, left Procedures XR SHOULDER GENERAL 3V OR MORE AP/TRUE AP/OTHER LEFT RADEX SHOULDER COMPLETE MINIMUM 2 VIEWS Wolfgang Chou PA-C [address] [place] [address] [place] [address] Referral ID Status Reason Start Date Expiration Date V isits Requested Visits Authorized [id number] Closed Auto-Generate d Referral 11/08/2023 12/07/2024 1 1 [facility] for referral (narrative)* - Pending Review Specialty Diagnoses / Procedures Referred By Ariel t Referred To Contact Diagnoses S/P reverse total shoulder arthroplasty, 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, left Closed displaced fracture of acromial process, unspecified laterality, sequela Procedures CONSULT TO FACTORY HAND Wolfgang Chou PA-C [address] [place] [address] Referral ID Status Reason Start Date Expiration Date V isits Requested Visits Authorized [id number] Pending Review 11/09/2023 02/07/2024 1 1 * Diagnostic Procedure Only (Routine) - Closed Specialty Diagnoses / Procedures Referred By Contac t Referred To Contact XR IMAGING Diagnoses S/P reverse total shoulder arthroplasty, left Procedures XR SHOULDER GENERAL 3V OR MORE AP/TRUE AP/OTHER LEFT RADEX SHOULDER COMPLETE MINIMUM 2 VIEWS Wolfgang Chou PA-C [address] [place] [address] [place] [address] Referral ID Status Reason Start Date Expiration Date V isits Requested Visits Authorized [id number] Closed Auto-Generate d Referral 11/08/2023 12/07/2024 1 1 [facility] for referral (narrative)* Diagnostic Procedure Only (Routine) - Closed Specialty Diagnoses / Procedures Referred By Contac t Referred To Contact XR IMAGING Diagnoses S/P reverse total shoulder arthroplasty, left Procedures XR SHOULDER GENERAL 3V OR MORE AP/TRUE AP/OTHER LEFT RADEX SHOULDER COMPLETE MINIMUM 2 VIEWS Wolfgang Chou PA-C [address] [place] [address] [place] [address] Referral ID Status Reason Start Date Expiration Date V isits Requested Visits Authorized [id number] Closed Auto-Generate d Referral 01/10/2024 02/08/2025 1 1 [facility] for referral (narrative)* Diagnostic Procedure Only (Routine) - Closed Specialty Diagnoses / Procedures Referred By Contac t Referred To Contact XR IMAGING Diagnoses S/P reverse total shoulder arthroplasty, left Procedures XR SHOULDER GENERAL 3V OR MORE AP/TRUE AP/OTHER LEFT RADEX SHOULDER COMPLETE MINIMUM 2 VIEWS Wolfgang Chou PA-C [address] [place] [address] [place] [address] Referral ID Status Reason Start Date Expiration Date V isits Requested Visits Authorized [id number] Closed Auto-Generate d Referral 01/10/2024 02/08/2025 1 1 [facility] for referral (narrative)* Diagnostic Procedure Only (Routine) - Closed Specialty Diagnoses / Procedures Referred By Contac t Referred To Contact XR IMAGING Diagnoses S/P reverse total shoulder arthroplasty, left Procedures XR SHOULDER GENERAL 3V OR MORE AP/TRUE AP/OTHER LEFT RADEX SHOULDER COMPLETE MINIMUM 2 VIEWS Wolfgang Chou PA-C [address] [place] [id number] [place] [address] Referral ID Status Reason Start Date Expiration Date V isits Requested Visits Authorized [id number] Closed Auto-Generate d Referral 04/25/2024 05/22/2025 1 1 [facility] for referral (narrative)* Diagnostic Procedure Only (Routine) - Closed Specialty Diagnoses / Procedures Referred By Contac t Referred To Contact XR IMAGING Diagnoses S/P reverse total shoulder arthroplasty, left Procedures XR SHOULDER GENERAL 3V OR MORE AP/TRUE AP/OTHER LEFT RADEX SHOULDER COMPLETE MINIMUM 2 VIEWS Wolfgang Chou PA-C [address] [place] [id number] Xr Imaging [id number] Referral ID Status Reason Start Date Expiration Date V isits Requested Visits Authorized [id number] Closed Auto-Generate d Referral 04/25/2024 05/22/2025 1 1 [facility] for referral (narrative)No reason for referral information availableK[facility] Work Phone: [facility] Narrative* Diagnostic Procedure Only (Routine) - Closed Specialty Diagnoses / Procedures Referred By Contac t Referred To Contact XR IMAGING Diagnoses Pain Procedures XR SHOULDER GENERAL 3V OR MORE AP/TRUE AP/OTHER LEFT RADEX SHOULDER COMPLETE MINIMUM 2 VIEWS Leeann Mcgee MD [address] [place], [place] [id number] [place] [address] Referral ID Status Reason Start Date Expiration Date V isits Requested Visits Authorized [id number] Closed Auto-Generate d Referral 06/08/2023 07/07/2024 1 1 [facility] for visit Narrative* Diagnostic Procedure Only (Routine) - Closed Specialty Diagnoses / Procedures Referred By Contac t Referred To Contact XR IMAGING Diagnoses S/P reverse total shoulder arthroplasty, left Procedures XR SHOULDER GENERAL 3V OR MORE AP/TRUE AP/OTHER LEFT RADEX SHOULDER COMPLETE MINIMUM 2 VIEWS Wolfgang Chou PA-C [address] [place] [id number] [place] [address] Referral ID Status Reason Start Date Expiration Date V isits Requested Visits Authorized [id number] Closed Auto-Generate d Referral 11/08/2023 12/07/2024 1 1 [facility] for visit Narrative* Diagnostic Procedure Only (Routine) - Closed Specialty Diagnoses / Procedures Referred By Contac t Referred To Contact XR IMAGING Diagnoses S/P reverse total shoulder arthroplasty, left Procedures XR SHOULDER GENERAL 3V OR MORE AP/TRUE AP/OTHER LEFT RADEX SHOULDER COMPLETE MINIMUM 2 VIEWS Wolfgang Chou PA-C [address] [place] [address] [place] [address] Referral ID Status Reason Start Date Expiration Date V isits Requested Visits Authorized [id number] Closed Auto-Generate d Referral 04/25/2024 05/22/2025 1 1 [facility] Summary Purpose Family History No Family History Records FoundNo Family History Records FoundNo Family History Records FoundNo Family History Records FoundNo Family History Records FoundNo Family History Records Found No data available for this section No Family History Records FoundNo Family History Records Found Advance Directives No Advanced Directives Records FoundDocuments on File Type Date Recorded 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 Name: Qing Fischer Admitted: 07/13/2018 Discharged: [...] be sent through Care Everywhere. * Sinusitis (Slovak) documented in this encounter Assessments Diagnosis Acute non-recurrent frontal sinusitis- Primary Reason for Referral Specialty Diagnoses / Procedures Referred By Contmaddy t Referred To Contact Diagnoses Rotator cuff tear arthropathy of left shoulder Procedures REFER TO PACC - PRE ANESTHESIA CONSULTATION CLINIC OFFICE/OUTPATIENT [facility] 60-[place] [address] [address] [address] Referral ID Status Reason Start Date Expiration Date Visits Requested Visits Authorized [id number] Pending Review PCP Requested Referral 08/29/2023 08/28/2024 1 1 Specialty Diagnoses / Procedures Referred By Contac t Referred To Contact [facility] Diagnoses Closed displaced fracture of acromial process, unspecified laterality, sequela Status post reverse arthroplasty of left shoulder Procedures CONSULT TO FACTORY HAND OCCUPATIONAL THERAPY [facility] COMPLEX [place] [address] [facility] [address] [address] [facility] [place] [address] [place] [address] Referral ID Status Reason Start Date Expiration Date Visits Requested Visits Authorized [id number] Pending Review Auto-Generat ed Referral 09/11/2024 1 1 Additional Source Comments INFORMATION SOURCE (unrecogn ized section and content) DATE CREATED AUTHOR 11/14/2018 [facility] DATE CREATED AUTHOR AUTHOR'S ORGANIZ ATION 05/19/2019 [facility] DATE CREATED AUTHOR AUTHOR'S ORGANIZ ATION 05/24/2022 [facility] DATE CREATED AUTHOR AUTHOR'S ORGANIZ ATION 02/09/2023 [facility] DATE CREATED AUTHOR AUTHOR'S ORGANIZ ATION 02/12/2024 [facility] [facility] DATE CREATED AUTHOR AUTHOR'S ORGANIZ ATION 04/28/2024 [facility] DATE CREATED AUTHOR AUTHOR'S ORGANIZ ATION 07/25/2024 [facility] DATE CREATED AUTHOR AUTHOR'S ORGANIZ ATION 06/07/2025 [facility] Reason for Visit (unrecogniz ed section and content) Reason Comments OT Progress Note Specialty Diagnoses / Procedures Referred By Diegoac t Referred To Contact Diagnoses 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, 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, left Procedures CONSULT TO FACTORY HAND Wolfgang Chou PA-C [address] [place] [address] [facility] Appts [address] [address] Referral ID Status Reason Start Date Expiration Date V isits Requested Visits Authorized [id number] Authorized 09/25/2023 09/24/2024 20 20 Reason Comments Occupational Therapy Reason Comments Dizziness Hypertension Reason Comments New Reason Comments Follow Up Reason Comments Post Op Follow Up Reason Comments Follow Up For Left shoulder pain Reason Comments Radio Gen A21 Specialty Diagnoses / Procedures Referred By Contac t Referred To Contact XR IMAGING Diagnoses S/P reverse total shoulder arthroplasty, left Procedures XR SHOULDER GENERAL 3V OR MORE AP/TRUE AP/OTHER LEFT RADEX SHOULDER COMPLETE MINIMUM 2 VIEWS Wolfgang Chou PA-C [address] [place] [address] [place] [address] Referral ID Status Reason Start Date Expiration Date V isits Requested Visits Authorized [id number] Closed Auto-Generate d Referral 01/10/2024 02/08/2025 1 [...] Associated Order(s): EKG 12-lead ED PROVIDER NOTE [facility] NAME: Qing Fischer AGE: 73 y.o. : 1945 VISIT DATE: 04/06/2019 CSN: [id number] PCP: Nona Mcknight MD Chief Complaint Patient [...] file Gets together: Not on file Attends holiness service: Not on file Active member of [...] 1. Nona Mcknight MD. Specialty: Family Medicine [address] [place], [place] [id number] Contact information for after-discharge care Follow-up information [...] States that she is currently here in [facility] for the past four days. documented in this encounter Source Comments (unrecognize d section and content) In the event this informatio n is protected by the Federal Confidentiality of Alcohol and Drug Abuse Patient Records regulations: The Federal rules restrict any use of the information to criminally investigate or prosecute any alcohol or drug abuse patient.[facility] the event this information is protected by the Federal Confidentiality of Alcohol and Drug Abuse Patient Records regulations: The Federal rules restrict any use of the information to criminally investigate or prosecute any alcohol or drug abuse patient.[facility] Center[facility] the event this information is protected by the Federal Confidentiality of Alcohol and Drug Abuse Patient Records regulations: The Federal rules restrict any use of the information to criminally investigate or prosecute any alcohol or drug abuse patient.[facility] Center[facility] the event this information is protected by the Federal Confidentiality of Alcohol and Drug Abuse Patient Records regulations: The Federal rules restrict any use of the information to criminally investigate or prosecute any alcohol or drug abuse patient.[facility] Center[facility] the event this information is protected by the Federal Confidentiality of Alcohol and Drug Abuse Patient Records regulations: The Federal rules restrict any use of the information to criminally investigate or prosecute any alcohol or drug abuse patient.[facility] Center[facility] the event this information is protected by the Federal Confidentiality of Alcohol and Drug Abuse Patient Records regulations: The Federal rules restrict any use of the information to criminally investigate or prosecute any alcohol or drug abuse patient.[facility] Center[facility] the event this information is protected by the Federal Confidentiality of Alcohol and Drug Abuse Patient Records regulations: The Federal rules restrict any use of the information to criminally investigate or prosecute any alcohol or drug abuse patient.[facility] Center[facility] the event this information is protected by the Federal Confidentiality of Alcohol and Drug Abuse Patient Records regulations: The Federal rules restrict any use of the information to criminally investigate or prosecute any alcohol or drug abuse patient.[facility] Center[facility] the event this information is protected by the Federal Confidentiality of Alcohol and Drug Abuse Patient Records regulations: The Federal rules restrict any use of the information to criminally investigate or prosecute any alcohol or drug abuse patient.[facility] Center[facility] the event this information is protected by the Federal Confidentiality of Alcohol and Drug Abuse Patient Records regulations: The Federal rules restrict any use of the information to criminally investigate or prosecute any alcohol or drug abuse patient.[facility] CenterIn the event this information is protected by the Federal Confidentiality of Alcohol and Drug Abuse Patient Records regulations: The Federal rules restrict any use of the information to criminally investigate or prosecute any alcohol or drug abuse patient.[facility] CenterIn the event this information is protected by the Federal Confidentiality of Alcohol and Drug Abuse Patient Records regulations: The Federal rules restrict any use of the information to criminally investigate or prosecute any alcohol or drug abuse patient.[facility] CenterIn the event this information is protected by the Federal Confidentiality of Alcohol and Drug Abuse Patient Records regulations: The Federal rules restrict any use of the information to criminally investigate or prosecute any alcohol or drug abuse patient.[facility] CenterIn the event this information is protected by the Federal Confidentiality of Alcohol and Drug Abuse Patient Records regulations: The Federal rules restrict any use of the information to criminally investigate or prosecute any alcohol or drug abuse patient.[facility] CenterIn the event this information is protected by the Federal Confidentiality of Alcohol and Drug Abuse Patient Records regulations: The Federal rules restrict any use of the information to criminally investigate or prosecute any alcohol or drug abuse patient.[facility] CenterIn the event this information is protected by the Federal Confidentiality of Alcohol and Drug Abuse Patient Records regulations: The Federal rules restrict any use of the information to criminally investigate or prosecute any alcohol or drug abuse patient.[facility] CenterIn the event this information is protected by the Federal Confidentiality of Alcohol and Drug Abuse Patient Records regulations: The Federal rules restrict any use of the information to criminally investigate or prosecute any alcohol or drug abuse patient.[facility] Care Teams (unrecognized sec tion and content) Pug Mill Operator Relationship Specialty Start Date End Date Nona Mcknight MD [address] [place] [facility] [place] [address] PCP - General 12/11/07 Pug Mill Operator Relationship Specialty Start Date End Date Nona Mcknight MD [address] [place] [facility] [place] [address] PCP - General 12/11/07 Pug Mill Operator Relationship Specialty Start Date End Date Nona Mcknight MD [address] [place] [facility] [place] [address] PCP - General 12/11/07 Pug Mill Operator Relationship Specialty Start Date End Date Nona Mcknight MD [address] [place] [facility] [place] [address] PCP - General 12/11/07 Pug Mill Operator Relationship Specialty Start Date End Date Nona Mcknight MD [address] [place] [facility] [place] [address] PCP - General 12/11/07 Pug Mill Operator Relationship Specialty Start Date End Date Nona Mcknight MD [address] [place] [facility] [place] [address] PCP - General 12/11/07 Pug Mill Operator Relationship Specialty Start Date End Date Nona Mcknight MD [address] [place] [facility] [place] [address] PCP - General 12/11/07 Pug Mill Operator Relationship Specialty Start Date End Date Nona Mcknight MD [address] [place] [facility] [place] [place] [address] PCP - General 12/11/07 Pug Mill Operator Relationship Specialty Start Date End Date Nona Mcknight MD [address] [place] [address] PCP - General 12/11/07 Pug Mill Operator Relationship Specialty Start Date End Date Nona Mcknight MD [address] [place] [id number] PCP - General 12/11/07 Pug Mill Operator Relationship Specialty Start Date End Date Nona Mcknight MD [address] [place] [address] PCP - General 12/11/07 Pug Mill Operator Relationship Specialty Start Date End Date Nona Mcknight MD [address] [place] [id number] PCP - General 12/11/07 Pug Mill Operator Relationship Specialty Start Date End Date Nona Mcknight MD [address] [place] [address] PCP - General 12/11/07 Pug Mill Operator Relationship Specialty Start Date End Date Nona Mcknight MD [address] [place] [id number] PCP - General 12/11/07 Pug Mill Operator Relationship Specialty Start Date End Date Nona Mcknight MD [address] [place] [address] PCP - General 12/11/07 Team Status: Inactive Member Role Status Dates Nona Mcknight MD Attending Provider Active Sta rt: June 04, 2025 End: June 04, 2025 Goals (unrecognized section and content) Goals may be documented in a n alternate section FOR RECORDS PERTAINING TO PATIENTS WHO ARE [...] BE BASED ON THE PRIMARY CLINICAL RECORDS. [facility] [employer] [facility]. provides no warranty or guarantee of the accuracy or completeness of information in this document.
[2025-07-09 12:18] LABS: Hematocrit 43.9 % (36.0-48.0); Hemoglobin 14.5 g/dL (12.0-16.0); Immature Granulocytes Abs Auto 0.02 10^3/uL (0.00-0.03); Immature Granulocytes Pct Auto 0.4 % (0.0-0.5); Lymphocytes Absolute Auto 2.0 10^3/uL (1.2-3.8); Mean Corpuscular HGB Conc 33.0 g/dL (29.9-35.2); Mean Corpuscular Hemoglobin 30.3 pg (26.7-34.0); Mean Corpuscular Volume 91.6 fL (81.0-99.0); Platelet Count 296 10^3/uL (150-450); Red Blood Count 4.79 10^6/uL (4.20-5.40); White Blood Count 5.4 10^3/uL (4.0-11.0)
[2025-07-09 13:12] LABS: Cholesterol 211 mg/dL (<=200); Free T3 3.95 pg/mL (2.18-3.98); HDL Cholesterol 61 mg/dL (40-60); Thyroid Stimulating Hormone 0.206 uIU/mL (0.358-3.740); Triglycerides 129 mg/dL (<=150); VLDL CHOLESTEROL 25.8 mg/dL
== END 2025-07-09 11:49 | disposition home or self-care (01) ==
LOC: LAB 11:50
PROVIDERS: PCP Family Medicine; Visit Provider Family Medicine
DX: E78.00 Pure hypercholesterolemia, unspecified (principal); Z12.11 Encounter for screening for malignant neoplasm of colon; R53.83 Other fatigue; E61.1 Iron deficiency; E11.9 Type 2 diabetes mellitus without complications
CPT/HCPCS: 36415; 80061; 83036; 84436; 84443; 84481; 85025

== ENCOUNTER 2025-07-16 14:47 | Outpatient (REF) | payer MEDICARE, SELFPAY ==
--- OUTSIDE RECORDS SUMMARY | 2025-02-03 09:50 | XMS_ITS ---
Author Organization [facility] Address [address] [place] [address] Care Team Providers Care Labor Crew Supervisor Name Role Phone AniketSivaNash Primary Care Provider Mc Simmons Unavailable [phone] REASON FOR VISIT RIGHT SHOULDER PAIN Problems Problem Type SNOMED Code ICD Code Onset Dates Problem Status W/U Status Risk Notes Problem [id number] Pain, joint, shoulder, right (M25.511) Activeconfirmed Encounters Encounter Location Date Provider Diagnosis [facility] Office [address] [place] [address] [place] [address] 02/03/2025 Mc Rojas Pain, joint, shoulder, right M25.511 Assessments Encounter Date Diagnosis (ICD Code) Assessment Notes Treatment Notes Treatment Clinical Notes Section Notes 02/03/2025 Pain, joint, shoulder, right ( D-10 - M25.511) Plan Of Treatment Pending Test Test Name Order Date SCC- SHOULDER 3 VIEW RIGHT 29025 025 Progress Notes * GOMEZ FISCHER MDOB:[birth year] (80 yo F)Acc No.[id number]:02/03/2025 Patient:?GOMEZ FISCHER :?Mc Rojas, DODOB:1945???Age:79 Y ???Sex:FemaleDate:02/03/2025Phone:[phone]:[address] [place] [address] [place], [id number]:Nash Marcial Subjective: * Chief Complaints: * 1 . RIGHT SHOULDER PAIN. * Medical History: Objective: * Vitals: Assessment: * Assessment: 1.?Pain, joint, shoulder, right - M25.511 (Primary)??? Plan: * Treatment: ?Imaging: SCC- SHOULDER 3 VIEW RIGHT 44602 * Procedure Codes: 7 3030 X-ray Shoulder, 2 or more view Forms: * Images: * Electronic signature of Mc Rojas DO on 07/16/2025 at 02:54 PM EDTSign off status: Pending * Provider: Liseth Rojas DO Date: 0 02/03/2025 Generated for Printing/Faxing/eTransmitting on:?07/16/2025 02:54 PM EDT
--- OUTSIDE RECORDS SUMMARY | 2025-02-03 09:50 | XMS_ITS ---
Author Organization [facility] Address [address] [place] [address] Care Team Providers Care Professional Engineer Name Role Phone Nash Marcial Primary Care Provider Mc Simmons Unavailable [phone] REASON FOR VISIT RIGHT SHOULDER PAIN Problems Problem Type SNOMED Code ICD Code Onset Dates Problem Status W/U Status Risk Notes Problem [id number] Pain, joint, shoulder, right (M25.511) Active confirmed Encounters Encounter Location Date Provider Diagnosis [facility] [address] [place] [address] 02/03/2025 Mc Rojas Pain, joint, shoulder, right M25.511 Assessments Encounter Date Diagnosis (ICD Code) Assessment Notes Treatment Notes Treatment Clinical Notes Section Notes 02/03/2025 Pain, joint, shoulder, right (ICD-10 - M25.511) Plan Of Treatment Pending Test Test Name Order Date SCC- SHOULDER 3 VIEW RIGHT [id number] 025 Progress Notes * GOMEZ FISCHER MDOB:[birth year] (80 yo F)Acc No.[id number]:02/03/2025 Patient: Shannon GOMEZ OLIVARES Provider: Liseth Rojas DO :1945 A ge:79 Y S ex:Female Date:02/03/2025 Address:[address] [place] [address] [facility] [id number] Pcp:Nash Marcial Subjective: * Chief Complaints: * 1 . RIGHT SHOULDER PAIN. * Medical History: Objective: * Vitals: Assessment: * Assessment: 1. P ain, joint, shoulder, right - M25.511 (Primary) Plan: * Treatment: * Procedure Codes: 7 3030 X-ray Shoulder, 2 or more view Forms: * Images: * Electronic signature of Brigitte Rojas DO on 07/10/2025 at 12:28 PM EDT Sign off status: Pending * Provider: Liseth Rojas DO Date: 0 02/03/2025 Generated for Alcides thompson/Laila/Evangelista on: 1 12:28 PM EDT
--- OUTSIDE RECORDS SUMMARY | 2025-07-09 04:28 | XMS_ITS ---
Author Organization [facility] in [place] Address [address] [place] [address] Care Team Providers Care Brusher Warp Name Role Phone Siva Marcial Primary Care Provider [phone] Results Component Value Reference Range Notes CBC AUTO DIFF Reviewed date:07/09/2025 07:38:17 PM Interpretation: Performing Lab: Notes/Report: [facility] , White Blood Count 5.4 4.0-11.0 10 3/uL Red Blood Count 4.79 4.20-5.40 10 6/uL Hemoglobin 14.5 12.0-16.0 g/dL Hematocrit 43.9 36.0-48.0 % Mean Corpuscular Volume 91.6 81.0-99.0 fL Mean Corpuscular Hemoglobin 30.3 26.7-34.0 pg Mean Corpuscular HGB Conc 33.0 29.9-35.2 g/dL Red Cell Distribution Width 13.1 11.0-15.0 % Platelet Count 296 150-450 10 3/uL Mean Platelet Volume 8.5 9.5-13.5 fL Neutrophils Percent Auto 46.4 43.0-75.0 % Lymphocytes Percent Auto 36.9 20.5-60.0 % Monocytes Percent Auto 15.5 1.7-12.0 % Eosinophils Percent Auto 0.6 0.9-7.0 % Basophils Percent Auto 0.2 0.2-2.0 % Immature Granulocytes Pct Auto 0.4 0.0-0.5 % Neutrophils Absolute Auto 2.5 1.4-6.5 10 3/uL Lymphocytes Absolute Auto 2.0 1.2-3.8 10 3/uL Monocytes Absolute Auto 0.8 0.3-0.8 10 3/uL Eosinophils Absolute Auto 0.0 0.0-0.7 10 3/uL Basophils Absolute Auto 0.0 0.0-0.1 10 3/uL Immature Granulocytes Abs Auto 0.02 0.00-0.03 10 3/uL Performing Lab: see note ML - [facility] GLYCOHEMOGLOBIN A1C Reviewed date:07/09/2025 07:38:17 PM Interpretation: Performing Lab: Notes/Report: [facility] , Glycohemoglobin A1C 5.6 4.5-6.2 % ADA RECOMMENDED LIMIT 4.0 - 6.0 ADA THERAPEUTIC TARGET < 7.0 ACTION SUGGESTED > 7.0 Estimated Average Glucose 114 Performing Lab: see note ML - [facility] LIPID PROFILE Reviewed date:07/09/2025 07:38:17 PM Interpretation: Performing Lab: Notes/Report: [facility] , Triglycerides 129 <=150 mg/dL Cholesterol 211 <=200 mg/dL HDL Cholesterol 61 40-60 mg/dL > or =60 mg/dl - LOW CARDIOVASCULAR RISK <40 mg/dl - HIGH CARDIOVASCULAR RISK LDL Cholesterol Calculated 125.0 <100 mg/dl OPTIMAL 100-129 mg/dl NEAR OR ABOVE OPTIMAL 130-159 mg/dl BORDERLINE HIGH 160-189 mg/dl HIGH >190 mg/dl VERY HIGH VLDL CHOLESTEROL 25.8 Chol HDL Ratio 3.5 3.3 - 4.4 LOW RISK 4.4 - 7.1 AVERAGE RISK 7.1 - 11.0 MODERATE RISK >11.0 HIGH RISK Performing Lab: see note ML - [facility] LB REASON FOR VISIT Yearly Labs Problems Problem Type SNOMED Code ICD Code Onset Dates Problem Status W/U Status Risk Notes Problem hypercholesterolemia (disorder) (73640264) Hypercholesteremia (E78.00) Active confirmed Encounters Encounter Location Date Provider Diagnosis [facility] [address] [place] [address] 07/09/2025 Siva Marcial Diabetes mellitus ty pe [...] Name Order Date FECAL OCCULT BLOOD 07/09/2025 PROF 14(COMP METB) 07/09/2025 THYROID PANEL (T4/TSH/FREE T3) Progress Notes * Qing FISCHER MDOB:[birth year] (80 yo F)Acc No.[id number]:07/09/2025 Patient: Qing RDZ :1945 A ge:80 Y S ex:Female Address:[address] [place] [phone] Subjective: * Chief Complaints: * Y early [...] Codes: * true * Date: Generated for Printi ng/Faxing/eTransmitting on: 1 12:28 PM EDT
--- OUTSIDE RECORDS SUMMARY | 2025-07-09 04:28 | XMS_ITS ---
Author Organization [facility] in [place] Address [address] [place] [address] Care Team Providers Care Skein Dyer Name Role Phone Siva Marcial Primary Care Provider [phone] Results Component Value Reference Range Notes CBC AUTO DIFF Reviewed date:07/09/2025 07:38:17 PM Interpretation: Performing Lab: Notes/Report: [facility] , White Blood Count 5.4 4.0-11.0 10 3/uL Red Blood Count4.794.20-5.40 10 6/nKEzuhgkenjp20.512.0-16.0 g/jNIrifxboeng32.9 36.0-48.0 %Mean Corpuscular Eogrto29.681.0-99.0 fLMean Corpuscular Hemoglobin 30.326.7-34.0 pgMean Corpuscular HGB Conc33.029.9-35.2 g/dLRed Cell Distribution Width13.111.0-15.0 %Platelet [id number] 10 3/uLMean Platelet Volume8.59.5- 13.5 fLNeutrophils Percent Auto46.443.0-75.0 %Lymphocytes Percent Auto36.920.5- 60.0 %Monocytes Percent Auto15.51.7-12.0 %Eosinophils Percent Auto0.60.9-7.0 % Basophils Percent Auto0.20.2-2.0 %Immature Granulocytes Pct Auto0.40.0-0.5 % Neutrophils Absolute Auto2.51.4-6.5 10 3/uLLymphocytes Absolute Auto2.01.2-3.8 10 3/uLMonocytes Absolute Auto0.80.3-0.8 10 3/uLEosinophils Absolute Auto0.00.0- 0.7 10 3/uLBasophils Absolute Auto0.00.0-0.1 10 3/uLImmature Granulocytes Abs Auto0.020.00-0.03 10 3/uLPerforming Lab:see noteML - [facility] GLYCOHEMOGLOBIN A1C Reviewed date:07/09/2025 07:38:17 PM Interpretation: Performing Lab: Notes/Report: [facility] ,Glycohemoglobin A1C5.64.5-6.2 % ADA RECOMMENDED LIMIT 4.0 - 6.0 ADA THERAPEUTIC TARGET < 7.0 ACTION SUGGESTED > 7.0 Estimated Average Chhhjkt406Mwzfxgcafe Lab:see note - [facility] LIPID PROFILE Reviewed date:07/09/2025 07:38:17 PM Interpretation: Performing Lab: Notes/Report: [facility] ,Ieeiqhjgrpekd879<=150 mg/zFMblkpxoxhey445<=200 mg/dLHDL Dijberiilsf5329-05 mg/dL > or =60 mg/dl - LOW CARDIOVASCULAR RISK <40 mg/dl - HIGH CARDIOVASCULAR RISK LDL Cholesterol Ifyfswkjnm583.0 <100 mg/dl OPTIMAL 100-129 mg/dl NEAR OR ABOVE OPTIMAL 130-159 mg/dl BORDERLINE HIGH 160-189 mg/dl HIGH >190 mg/dl VERY HIGH VLDL SURHDZFPMLR45.8Chol HDL Ratio3.5 3.3 - 4.4 LOW RISK 4.4 - 7.1 AVERAGE RISK 7.1 - 11.0 MODERATE RISK >11.0 HIGH RISK Performing Lab:see noteML - [facility] LB REASON FOR VISIT Yearly Labs Problems Problem Type SNOMED Code ICD Code Onset Dates Problem Status W/U Status Risk Notes Problem hypercholesterolemia (disorder) (41265622 ) Hypercholesteremia (E78.00) Activeconfirmed Encounters Encounter Location Date Provider Diagnosis [facility] [address] [place] [address] 07/09/2025 Siva Anikte Diabetes mellitus ty pe 2, noninsulin dependent E11.9 ; Iron deficiency E61.1 ; Fatigue R53.83 ; Screening for colon cancer Z12.11 and Hypercholesteremia E78.00 Assessments Encounter Date Diagnosis (ICD Code) Assessment Notes Treatment Notes Treatment Clinical Notes Section Notes 07/09/2025 Diabetes mellitus type 2, nonins ulin dependent (ICD-10 - E11.9) 07/09/2025Iron deficiency (ICD-10 - E61.1)07/09/2025Fatigue (ICD-10 - R53.83) 07/09/2025Screening for colon cancer (ICD-10 - Z12.11)07/09/2025 Hypercholesteremia (ICD-10 - E78.00) Plan Of Treatment Pending Test Test Name Order Date FECAL OCCULT BLOOD 07/09/2025 PROF 14(COMP METB) 07/09/2025 THYROID PANEL (T4/TSH/FREE T3) Progress Notes * Qing FISCHER MDOB:[birth year] (80 yo F)Acc No.[id number]:07/09/2025 Patient:?Qing FISCHER M :1945???Age:80 Y???Sex:FemalePhone:[phone] Address:[address] [place] [phone] Subjective: * Chief Complaints: * Y early Labs * Medical History: * Surgical History: * Hospitalization/Major Diagno stic Procedure: * Medications: Objective: * Vitals: * Physical Examination: ??? Assessment: * Assessment: 1.?Diabetes mellitus type 2, noninsulin dependent - E11.9 (Primary)???2.?Iron deficiency - E61.1???3.?Fatigue - R53.83???4.?Screening for colon cancer - Z12.11???5.?Hypercholesteremia - E78.00??? Plan: * Treatment: ?LAB: GLYCOHEMOGLOBIN A1C2.?Iron deficiency?LAB: CBC AUTO DIFF3.?Fatigue?LAB: CBC AUTO DIFF ?LAB: PROF 14(COMP METB) ?LAB: THYROID PANEL (T4/TSH/FREE T3)4.?Screening for colon cancer?LAB: FECAL OCCULT BLOOD5.?Hypercholesteremia?LAB: LIPID PROFILE * Procedure Codes: * true * Date:?Generated for Printing/Faxing/eTransmitting on:?07/16/2025 02:54 PM EDT
--- OUTSIDE RECORDS SUMMARY | 2025-07-10 12:27 | XMS_ITS | Clinical Summary ---
Author Organization [facility] Address [address] [place], [place] [address] Care Team Providers Care Internal Revenue Agent Name Role Phone Nash Marcial MD Primary Care Provider [phone] Allergies Active Allergy Reactions Criticality Noted Date Comments Amoxicillin Rash 09/07/2023 Codeine Mental Status Change Medium 12/11/2007 Tylenol with codeine. Hot/ flushed. Nickel Rash 09/07/2023 Medications PSEUDOEPHEDRINE 30 MG TAB 0 11/09/19 08 Active multivitamins w-minerals/lut(ANKITA TRAL SRIKANTH SENIOR-LUTEIN TAB) 0 12/11/19 08 Active calcium/mag oxide/vitamin d3(CORAL CALCIUM PLUS 250 MG-125 MG-200 UNIT CAP) 0 12/11/19 08 Active Additional Information Patient not taking.Reason: Course of Therapy Completed, Reported on 11/09/2023 levothyroxine (SYNTHROID) 88 mcg tablet Take 1 tablet by mouth every afternoon. 07/21/20 23 Active liothyronine (CYTOMEL) 5 mcg tablet 06/29/20 23 Active oxybutynin (DITROPAN) 2.5 mg tablet Take 1 tablet by mouth every afternoon. 08/21/20 23 Active ondansetron orally disintegrating (ZOFRAN ODT) 8 mg disintegrating tabletIndications: prevention of post-operative nausea and vomiting Take 1 tablet by mouth every 8 hours as needed for nausea/vomiting . 6 tablet 09/12/2023 1:40 PM EST 09/12/20 23 Active Additional Information Patient taking differently:8 mg ORAL EVERY 8 HOURS NEEDED, nausea/vomiting,(No indications reported), Reported on 04/25/2024 CALCIUM CITRATE ORAL Take 2 tablets by mouth once daily. Active B cmplx 4/vit D3/C/folic/zinc (VITAL-D RX ORAL) Take by mouth. Active cholecalciferol, vitamin D3, (VITAMIN D3 ORAL) Take 1 tablet by mouth once daily. Active acetaminophen (TYLENOL ARTHRITIS PAIN) 650 mg CR tablet Take 650 mg by mouth every 8 hours. 09/27/19 Active grape seed extract (GRAPE SEED ORAL) Take 1 tablet by mouth as directed. Active rOPINIRole (REQUIP) 0.5 mg tablet 1 tablet 1 to 3 hours before bedtime Orally Once a day for 30 days 10/04/19 Active Active Problems Problem Noted Date Diagnosed Date Exposed orthopaedic hardware 10/30/2023 Decreased range of motion of left shoulder 10/02 Nontraumatic complete tear of rotator cuff, left 10/02/2023 Rotator cuff tear arthropathy of left shoulder 0 10/02/2023 Shoulder arthritis 09/11/2023 S/P reverse total shoulder arthroplasty, left Hypothyroidism 09/08/2023 Assessment & Plan (09/08/2023 8:20 AM EST): Assessment: Stable on RX medication. Monitored per PCP OAB (overactive bladder) 09/08/2023 Assessment & Plan (09/08/2023 8:21 AM EST): Assessment: Stable on RX medication Gastroesophageal reflux disease without esophagi tis 09/08/2023 Assessment & Plan (09/08/2023 8:21 AM EST): Assessment: Well controlled with PPI Family History Medical History Relation Comments Coronary Artery Disease Father Hypertension Father Hypertension Sister 1 Coronary Artery Disease Sister 2 DC in 30 s Anesthesia Problems No Family History Relation Status Comments Father Sister 1 Sister 2 Social History Tobacco Use Types Packs/Day Years Used Date Smoking Tobacco: Unknown Tobacco Cessation:Counseling Given: Not Answered Alcohol Use Standard Drinks/Week Comments Yes 0 (1 standard drink = 0.6 oz pure alcohol) 1-2 glasses of wine with dinner most nights Area Deprivation Index Answer Date Velasquez rded National Score (1-100), lower number is lower ri sk 86 07/18/2023 State Score (1-10), lower number is lower risk 8 07/18/2023 Data from: https://www.neighborhoodatlas.medicine.[facility].edu/. Last address used for calculation [address] 07/18/2023 Comments No Sex and Gender Information Value Date Recorded Sex Assigned at Not on file Legal Sex Female 8:11 AM EST Gender Identity Not on file Sexual Orientation Not on file Last Filed Vital Signs Vital Sign Reading Time Taken Comments Blood Pressure 130/55 10/30/2023 9:09 AM EST Pulse 96 10/30/2023 9:09 AM EST Temperature 36.4 C (97.5 F) 10/30/2023 9:09 AM EST Respiratory Rate 18 10/30/2023 9:09 AM EST Oxygen Saturation 96% 10/30/2023 9:09 AM EST Inhaled Oxygen Concentration - - Weight 60.8 kg (134 lb) 01/11/2024 2:39 PM EDT Height 152.4 cm (5') 01/11/2024 2:39 PM EDT Body Mass Index 26.17 01/11/2024 2:39 PM EDT Plan of Treatment Health Maintenance Due Date Last Done Comments Anxiety Screening 1961 Depression Screening 1963 DTaP,Tdap,Td Vaccine (1 - Tdap) 1962 Shingrix Vaccine (1 of 2) 1993 Bone Density Screening 2008 RSV Vaccine (1 - 1-dose 75+ series) 2018 Advance Directive Discussion 09/25/2024 Medicare Advantage Annual We llness Visit 09/25/2024 Covid-19 Vaccine (6 - 2024-2 6 season) 2025 06/26/2023, 07/18/2022, 06/24/2021, Additional history exists Influenza Vaccine (#1) 2025 , 07/18/2022, 06/11/2021, Additional history exists Diabetes Screening 09/12/2026 09/12/2023, 1 11/08/2022, 04/27/2022, Additional history exists Pneumococcal Vaccine: 50+ Completed 10/25/2017, Medical Devices Implanted Type Area Hr Internship Device Identifier Shelf Expiration Date Model / Serial / Lot Cement Simplex P Tobramycin Bone Full Dose Radiopaque Preblend Sterile - [id number] Implanted:Qty: 1 on 09/11/2023 at [facility] Cement / Putty Left: Bone - Shoulder [employer] 10/25/2024 6197-9-010 / / [id number] Cement Simplex P Tobramycin Bone Full Dose Radiopaque Preblend Sterile - [id number] Implanted:Qty: 1 on 09/11/2023 at [facility] Cement / Putty Left: Bone - Shoulder [employer] [employer] 10/25/2024 6197-9-010 / / [id number] Trabecular Metal Reverse Plus Base Plate 15mm Implanted:Qty: 1 on 09/11/2023 at [facility] Implant Left: Bone - Shoulder [employer] 07/30/2033 [id number] -00 / / [id number] Trabecular Metal Reverse Plus Shoulder Head 36mm 0deg Implanted:Qty: 1 on 09/11/2023 at [facility] Implant Left: Bone - Shoulder [employer] 08/05/2033 [id number] -00 / / [id number] Stem 12mm Trabecular Metal Tivanium 130mm Humeral Reverse Sterile Shoulder - [id number] Implanted:Qty: 1 on 09/11/2023 at [facility] Joint Left: Bone - Shoulder [employer] 07/03/2033 [id number] / / [id number] Liner 36mm 12d 65d Trabecular Metal Polyethylene H+6mm Shoulder Reverse - [id number] Implanted:Qty: 1 on 09/11/2023 at [facility] Joint Left: Bone - Shoulder [employer] 03/22/2027 [id number] / / [id number] Screw Ncb Anatomical Shoulder 4.5mm Protasul-64wf 33mm Bone Inverse Reverse - [id number] Implanted:Qty: 1 on 09/11/2023 at [facility] Screw Left: Bone - Shoulder [employer] 01/28/2027 01.29427.03 3 / / [id number] Screw Ncb 4.5mm Protasul-64wf 30mm Bone Inverse Reverse Lock Sterile - [id number] Implanted:Qty: 1 on 09/11/2023 at [facility] Screw Left: Bone - Shoulder [employer] 12/07/2027 01.31346.03 0 / / [id number] Wire Liz 1.6mm Stainless Steel 5.5in Fixation Trocar Smooth Guide - [id number] Implanted:Qty: 1 on 09/11/2023 at [facility] Wire Left: Bone - Shoulder [employer] 11/03/2026 1600-023 / / [id number] Wire Liz 1.6mm Stainless Steel 5.5in Fixation Trocar Smooth Guide - [id number] Implanted:Qty: 1 on 09/11/2023 at [facility] Wire Left: Bone - Shoulder [employer] 11/03/2026 1600-023 / / [id number] Procedures Procedure Name Priority Date/Time Associated Diagnosis Comments BASIC METABOLIC PANEL Routine 09/12/2023 6:03 AM EST from Last 3 Months or Most Recently Relevant to Health Maintenance Results * (ABNORMAL) BASIC METABOLIC PNL (09/12/2023 6:03 AM EST) [facility] Glucose 115(H) 74 - 99 mg/dL 09/12/2023 6:46 AM EST [facility] Comment: The [place] Diabetes Association (ADA) provides guidance for cutoff [...] Standards of Medical Care in Diabetes 2016, [place] Diabetes Association. Diabetes Care. 2016.39(Suppl 1). BUN 18 7 - 21 mg/dL 09/12/2023 6:46 AM EST [facility] Creatinine 0.75 0.58 - 0.96 mg/dL 09/12/2023 6:46 AM EST [facility] Sodium 138 136 - 144 mmol/L 09/12/2023 6:46 AM EST [facility] Potassium 4.4 3.7 - 5.1 mmol/L 09/12/2023 6:46 AM EST [facility] Chloride 107(H) 97 - 105 mmol/L 09/12/2023 6:46 AM EST [facility] CO2 24 22 - 30 mmol/L 09/12/2023 6:46 AM EST [facility] Anion Gap 7(L) 9 - 18 mmol/L 09/12/2023 6:46 AM EST [facility] Calcium, Total 8.3(L) 8.5 - 10.2 mg/dL 09/12/2023 6:46 AM EST [facility] Estimated Glomerular Filtration Rate 81 >=60 mL/min/1. 73m 09/12/2023 6:46 AM EST [facility] Comment:Estimated Glomerular Filtration Rate (eGFR) is calculated using the 2020 CKD-EPI creatinine equation. This equation utilizes serum creatinine, sex, and age as parameters. The creatinine assay has traceable calibration to isotope dilution- mass spectrometry. Refer to KDIGO guidelines for clinical interpretation. In patients with unstable renal function, e.g. those with acute kidney injury, the eGFR may not accurately reflect actual GFR. Blood BLOOD SPECIMEN / Unknown Venipuncture / Unknown 09/12/2023 6:03 AM EST 09/12/2023 6:21 AM EST us [employer] Final Res ult [facility] [address] from Last 3 Months or Most Recently Relevant to Health Maintenance Insurance [facility] MEDICARE ADVANTAGE HMO Advance Directives * Full Code (Latest Code Status on File) Date Activated Date Inactivated Comments 09/11/2023 6:23 PM 09/12/2023 5:24 PM Question Answer Comments Full Code Order Discussed With: Patient Care Teams Internal Revenue Agent Relationship Specialty Start Date End Date Nash Marcial MD [address] [place] [address] PCP - General 12/11/07
--- OUTSIDE RECORDS SUMMARY | 2025-07-10 12:27 | XMS_ITS | Clinical Summary ---
Author Organization [facility] Address [address] [place] [address] Care Team Providers Care Senior Courtroom Clerk Name Role Phone Unavailable Primary Care Provider [...] Description 12/02/2026 1:00 PM EST Telemedicine [facility] [address] [place] [id number] Jr. Lyndon Thomason, DO [address] [facility] [address] [place] [address] Insurance [employer] MEDICARE ADVANTAGE Advance Directives Documents on File Type Date Recorded Patient Ground Instructor Basic Expl anation Advance Directives and Living Will 07/20/2018 2018-07-20 full code
--- OUTSIDE RECORDS SUMMARY | 2025-07-10 12:28 | XMS_ITS | Patient Health Record ---
Author Organization [facility] in [place] Address [address] [place] [address] Care Team Providers Care Transmission Repairer Name Role Phone Siva Marcial Primary Care Provider [phone] Gabriella Cervantes Unavailable [phone] Allergies Allergen (clinical drug ingredient) Drug/Non Drug [...] ESTERASE (LAMBERT) + NEG - NEG MG/DL CBC AUTO DIFF Reviewed date:07/09/2025 07:38:17 PM Interpretation: Performing Lab: Notes/Report: [facility] , White Blood Count 5.4 4.0-11.0 [...] 3/uL Performing Lab: see note ML - [facility] LB GLYCOHEMOGLOBIN A1C Reviewed date:07/09/2025 07:38:17 PM Interpretation: Performing Lab: Notes/Report: [facility] , Glycohemoglobin A1C 5.6 4.5-6.2 % ADA THERAPEUTIC TARGET < 7.0 ADA RECOMMENDED LIMIT 4.0 - 6.0 > 7.0 ACTION SUGGESTED Estimated Average Glucose 114 Performing Lab: see note ML - [facility] LB LIPID PROFILE Reviewed date:07/09/2025 07:38:17 PM Interpretation: Performing Lab: Notes/Report: [facility] , Triglycerides 129 <=150 mg/dL Cholesterol 211 <=200 mg/dL HDL Cholesterol 61 40-60 mg/dL <40 mg/dl - HIGH CARDIOVASCULAR RISK > or =60 mg/dl - LOW CARDIOVASCULAR RISK LDL Cholesterol Calculated 125.0 <100 mg/dl OPTIMAL 100-129 mg/dl NEAR OR ABOVE OPTIMAL 160-189 mg/dl HIGH 130-159 mg/dl BORDERLINE HIGH >190 mg/dl VERY HIGH VLDL CHOLESTEROL 25.8 Chol HDL Ratio 3.5 3.3 - 4.4 LOW RISK 4.4 - 7.1 AVERAGE RISK 7.1 - 11.0 MODERATE RISK >11.0 HIGH RISK Performing Lab: see note ML - [facility] FREE T3 Reviewed date:07/24/2024 07:34:35 PM Interpretation: Performing Lab: Notes/Report: [facility] , Free T3 3.38 2.18-3.98 pg/mL Performing Lab: see note ML - [facility] LB T4 Reviewed date:07/24/2024 07:34:35 PM Interpretation: Performing Lab: Notes/Report: [facility] , T4 Thyroxine 9.30 4.80-13.90 ug/dL Performing Lab: see note ML - [facility] LB TSH Reviewed date:07/24/2024 07:34:35 PM Interpretation: Performing Lab: Notes/Report: [facility] , Thyroid Stimulating Hormone 0.735 0.358-3.740 uIU/mL Performing Lab: see note - [facility] UA RANDOM W or MICROSCOPIC Reviewed date:06/04/2025 03:20:05 PM Interpretation: Performing Lab: Notes/Report: [facility] , Color Urine LT. YELLOW YELLOW Clarity Urine CLEAR CLEAR Specific [place] Urine 1.010 1.005-1.025 pH Urine 7.0 5.0-9.0 [...] Performing Lab: see note ML - [facility] LB FREE T3 Reviewed date:07/09/2025 07:38:17 PM Interpretation: Performing Lab: Notes/Report: [facility] , Free T3 3.95 2.18-3.98 pg/mL Performing Lab: see note ML - [facility] LB T4 Reviewed date:07/09/2025 07:38:17 PM Interpretation: Performing Lab: Notes/Report: [facility] , T4 Thyroxine 11.40 4.80-13.90 ug/dL Performing Lab: see note ML - [facility] LB TSH Reviewed date:07/09/2025 07:38:17 PM Interpretation: Performing Lab: Notes/Report: [facility] , Thyroid Stimulating Hormone 0.206 0.358-3.740 uIU/mL Performing Lab: see note ML - [facility] LB Urine Culture - [facility] Reviewed date:06/08/2025 12:58:00 PM Interpretation: Performing Lab: Notes/Report: [facility] , Urine Culture - [facility] See Below For Report Urine Culture - [facility] <9,000 colonies/ml mixed Urine Culture - [facility] bacterial skin contaminants Urine Culture - [facility] <9,000 colonies/ml mixed Urine Culture - [facility] 2 Days Urine Culture - [facility] <9,000 colonies/ml mixed Urine Culture - [facility] Urine Culture - [facility] <9,000 colonies/ml mixed Urine Culture - [facility] Testing performed a [facility] Urine Culture - [facility] <9,000 colonies/ml mixed Urine Culture - [facility] [address] [place] [address] Urine Culture - [facility] <9,000 colonies/ml mixed Performing Lab: see note ML - [facility] LB UA DIP NONAUTO WO MICRO (810 [...] TABLE T BY MOUTH EVERY DAY; Duration: 90 Active predniSONE 20 MG 2 tablets Orally Onc e a day; Duration: 5 days 05/19/2025 Active Cholecalciferol 50 MCG (1999) 1 capsule Orally Once a day Active Myrbetriq 25 MG 1 tablet Orally Once a day; Duration: 30 days 06/09/2025 Active traMADol HCl 50 MG TAKE 1 TABLET BY ASA TH EVERY 6 HOURS NEEDED FOR PAIN FOR 7 DAYS; Duration: 12/19/2024 Active rOPINIRole HCl 1 MG TAKE 1 TABLET BY ASA TH 1 TO 3 HOURS BEFORE BEDTIME DAILY; Duration: Active Pantoprazole Sodium 40 MG TAKE 1 TABLET BY MOUTH EVERY DAY; Duration: Active Macrobid 100 MG 1 capsule with [...] W/U Status Risk Notes Problem Iron deficiency (68362044) Iron deficiency (E61.1) Active confirmed Problem Alopecia mucinosa (48663689) 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) Active confirmed Problem Primary osteoarthrit is (865792598) Unilateral primary osteoarthritis, right knee (M17.11) Active confirmed Problem Palpitations (31195923) Palpitations (R00.2) Active confirmed Problem Osteoarthritis (343843998) Osteoarthritis (M19.90) Active confirmed Problem Carotid bruit (354393372) Carotid bruit (R09.89) Active confirmed Problem Benign essential hypertension (9550504) Benign essential hypertension (I10) Active confirmed Problem Restless legs (72654912) RLS (restless legs syndrome) (G25.81) Active confirmed Problem Osteoporosis (82090199) Osteoporosis (M81.0) Active confirmed Problem Acquired hypothyroidism (032064329) Acquired hypothyroidism (E03.9) Active confirmed Problem Acute blood loss anemia (116509615) Acute blood loss anemia (D62) Active confirmed Problem Laboratory test resu lt abnormal (148702160) Abnormal laboratory test (R89.9) Active confirmed Problem Thrush (48131429) Thrush (B37.0) Active confirm ed Problem Seasonal allergic rhinitis (092301583) Allergic rhinitis, seasonal (J30.2) Active confirmed Problem Bladder spasm (250222726) Bladder spasm (N32.89) Active confirmed Problem Cervical radiculopat hy (10827405) Cervical radicular pain (M54.12) Active confirmed Problem Diverticular disease of colon (163763255) Colon, diverticulosis (K57.30) Active confirmed Problem Type II diabetes mellitus without complication (457396390) Diabetes mellitus type 2, noninsulin dependent (E11.9) Active confirmed Problem Heart murmur (71583401) Cardiac murmur (R01.1) Active confirmed Problem Fibrocystic breast changes (40309999) Fibrocystic breast disease (N60.19) Active confirmed Problem Gastro-esophageal reflux disease (251985237) Gastro-esophageal reflux disease (K21.9) Active confirmed Problem Shoulder impingement syndrome (322123854) Shoulder impingement syndrome (M75.40) Active confirmed Problem At risk for falls (514620740) At risk for falls (Z91.81) Active confirmed Problem Cervicovaginal cytology: Low grade squamous intraepithelial lesion (718716936) Pap smear abnormality of cervix with LGSIL (R87.612) Active confirmed Problem hypercholesterolemia (disorder) (94182318) Hypercholesteremia (E78.00) Active confirmed Problem Pure hypercholesterolemia (984111456) Pure hypercholesterolemi a, unspecified (E78.00) Active confirmed Problem Disorder of sacrum (91199074) Low back derangement syndrome (M53.86) Active confirmed Problem Chronic low back oma n (finding) (412024330) Chronic midline low back pain without sciatica (M54.50) Active confirmed Vital Signs Blood pressure diastolic 90 mm Hg 05/19/2025 Height 59 in 05/19/2025 Blood pressure systolic 160 mm Hg 05/19/2025 Weight 130.8 lbs 05/19/2025 BMI 26.42 kg/m2 05/19/2025 Encounters Encounter Location Date Provider Diagnosis [facility] [address] [place] [facility] [address] 05/19/2025 Siva Macrial Benign essential hypertension I10 ; Low back derangement syndrome M53.86 and Low back pain at multiple sites M54.50 [facility] [address] [place] [place] [address] 09/13/2024 Siva Marcial Bladder spasm N32.89 [facility] [address] [place] [place] [place] [address] 07/24/2024 Gabriella Billy [facility] [address] [place] [place] [address] 08/13/2024 Siva Marcial [facility] [address] [place] [place] [place] [address] 09/13/2024 Siva Marcial [facility] [address] [place] [facility] [place] [address] 12/19/2024 Siva Marcial [facility] [address] [place] [facility] [place] [address] 06/03/2025 Siva Marcial Bladder spasm N32.89 [facility] [address] [place] [place] [place] [address] 06/08/2025 Siva Marcial [facility] [address] [facility] [place] [address] 06/18/2025 Siva Marcial [facility] [address] [place] [place] [place] [address] 07/09/2025 Siva Marcial Diabetes mellitus ty pe 2, noninsulin dependent E11.9 ; Iron deficiency E61.1 ; Fatigue R53.83 ; Screening for colon cancer Z12.11 and Hypercholesteremia E78.00 [facility] [address] [place] [place] [place] [address] 07/09/2025 Siva Marcial Assessments Encounter Date Diagnosis (ICD Code) Assessment [...] IRON, TOTAL 02/06/2023 LIPID PANEL (CHOL/TRIG/HDL/LDL) 02/07/20 23 CBC WITH DIFF 02/06/2023 VITAMIN D, 25 LEVEL (TOTAL) 02/06/2023 T3 FREE, T4 FREE and TSH 06/25/2024 FECAL OCCULT BLOOD 07/09/2025 FECAL OCCULT BLOOD 06/25/2024 Insulin Level 02/06/2023 CBC W/AUTO DIFF 02/12/2024 STOOL OCCULT BLOOD 02/06/2023 CULTURE URINE 03/17/2023 CULTURE URINE 06/03/2025 PROF 14(COMP METB) 07/09/2025 UA RANDOM W or MICROSCOPIC 03/17/2023 THYROID PANEL (T4/TSH/FREE T3) 3 THYROID PANEL (T4/TSH/FREE T3) 4 THYROID PANEL (T4/TSH/FREE T3) 5 Insurance Providers Payer Name Payer Address Payer Phone Subscriber Number Group Number Insured Name Patient Relationship to Insured Coverage Start Date Coverage End Date [employer] AD[employer] PLAN [address] [place] [phone] [id number] [id number] Qing Jara Self - patient is the [...]
--- OUTSIDE RECORDS SUMMARY | 2025-07-10 12:28 | XMS_ITS | Clinical Summary ---
Author Organization [facility] Address [address] [place] [address] Phone Care Team Providers Care Pipe Machine Operator Name Role Phone Unavailable Primary Care Provider [...]
--- OUTSIDE RECORDS SUMMARY | 2025-07-10 12:28 | XMS_ITS | Clinical Summary ---
Author Organization [facility] Address [id number] [address] [place] [address] Care Team Providers Care Senior Database Programmer Name Role Phone Nash Marcial MD Primary Care Provider [phone] Allergies Active Allergy Reactions Criticality Noted Date [...] 1 capsule by mouth daily. Active omega 2-wrn-iib-fish oil (FISH OIL) 1,600-500-800 mg/5 mL liquid [...] (10/24/2019): Added automatically from request for surgery [id number] Family History Relation Name Status Comments Father [...] on file Insurance [employer] Care Teams Senior Database Programmer Relationship Specialty Start Date End Date Nash Marcial MD PCP - General 08/08/18
--- OUTSIDE RECORDS SUMMARY | 2025-07-10 12:28 | XMS_ITS | Patient Health Record ---
Author Organization [facility] Address [address] [place] [address] Care Team Providers Care Vision Mixer Name Role Phone Nash Marcial Primary Care Provider Mc Simmons Unavailable [phone] Reason For Referral No Information Problems Problem Type SNOMED Code ICD Code Onset Dates Problem Status W/U Status Risk Notes Problem [id number] Pain, joint, shoulder, right (M25.511) Active confirmed Plan Of Treatment No Information Insurance Providers Payer Name Payer Address Payer Phone Subscriber Number Group Number Insured Name Patient Relationship to Insured Coverage Start Date Coverage End Date Medicare [employer] [address] [place] [id number] [facility] GOMEZ FISCHER Self - patient is the insured 5
--- OUTSIDE RECORDS SUMMARY | 2025-07-10 12:28 | XMS_ITS | Clinical Summary ---
Author Organization [facility] Address [address] [place], [place] [address] Care Team Providers Care Account Resolution Expert Name Role Phone Nash Marcial MD Primary Care Provider [phone] Allergies Active Allergy Reactions Criticality Noted Date [...] Insurance [employer] MEDIBLUE ESSENTIAL/PLUS/CONNECT/SNP HMO Care Teams Account Resolution Expert Relationship Specialty Start Date End Date Nash Marcial MD [address] [place] [address] PCP - General Family Medicine 04/06/19
--- OUTSIDE RECORDS SUMMARY | 2025-07-10 12:28 | XMS_ITS | Encounter Summary ---
Author Organization [facility] Address [address] [place] [address] Care Team Providers Care Twisthand Name Role Phone Nash Marcial MD Primary Care Provider [phone] Source Comments In the event this information is protected by the Federal Confidentiality of Alcohol and Drug AbusePatient Records regulations: The Federal rules restrict any use of the information to criminally investigate or prosecute any alcohol or drug abuse patient.[facility] Encounter Details Date Type Department Care Team (Late st Contact Info) Description 10/10/2024 Patient Msg Orthopaedics [address] [place] [id number] Provider, [facility] Re Schedule Social History Tobacco [...] is lower risk 8 07/18/2023 Data from: https://www.neighborhoodatlas.medicine.[facility].edu/. Last address used for calculation [address] [facility] 07/18/2023 Comments No Sex and Gender Information [...] Date Author No 09/12/2023 1:09 PM Shu Fu RN documented in this encounter Plan of Treatment Not on file documented as of this encounter Visit Diagnoses Not on filedocumented in this encounter Care Teams Twisthand Relationship Specialty Start Date End Date Nash Marcial MD [address] [place] [address] PCP - General 12/11/07 documented as of this encounter
--- OUTSIDE RECORDS SUMMARY | 2025-07-10 12:29 | XMS_ITS | CCD ---
Author Organization [facility] CliniSys[facility] Care Team Providers Care Electrical Contractor Name Role Phone RASHEED TOWNSENDORY Admitting Unavailable [...] ABIODUN Admitting Unavailable CIARA GONZALEZ Referring Unavailable MO Procedure Practitioner Unavailab kaur EBRAHEIM, ABIODUN Surgeon Unavailable SHELL HAWKINS Attending Unavailable HOY, NONA Primary Care Unavailable Petry, Nona Primary Care Provider Nona Mcknight Primary Care Provider [phone] DR NONA SHAH Primary Care Unavailable PETRY [...] Unavailable Nona Mcknight MD Primary Care Provider [phone] Nona Mcknight MD Primary Care Provider [phone] TONY COMBS Admitting Unavailable TONY COMBS Attending [...] Unavailable Nona Mcknight MD Primary Care Provider [phone] HOY, NONA M Primary Care Unavailable WOLFGANG [...] Attending Unavailable Siva Mcknightlas Primary Care Physician [phone] Nilam Garnica Attending Unavailable Lonny VASQUEZ Attending Unavailable Nona Mcknight MD Attending Provider [phone] Nona Mcknight Attending Unavailable Nona Mcknight Admitting Unavailable Allergies Allergy Classification Reported Allergen(s) Allergy Type Date of Onset Reaction(s) Facility (5 sources) Amoxicillin; Translations: [Unknown] Drug Allergy [address] [facility] Repository (4 sources) Codeine; Translations: [CODEINE] Drug Allergy [address] [facility] Repository (1 source) Penicillins (Antibiotic) Drug allergy (disorder) [address] [facility] Repository (2 sources) Sulfonamides (Antibiotic) Drug allergy (disorder) [address] [facility] Repository (16 sources) Amoxicillin Drug Allergy 9 Rash [facility] (20 sources) Codeine; Translations: [codeine] Drug Allergy 8 Mental Status Change, Near syncope (disorder) [facility] (5 sources) Leucine; Translations: [NICKEL] Drug Allergy 0 [facility] Repository (1 source) Penicillins Drug allergy (disorder) 4 [facility] Repository (1 source) Tylenol-Codeine #3 Drug allergy (disorder) 0 [facility] Repository (14 sources) nickel Drug Allergy 3 Rash [facility] (2 sources) Sulfonamides (Antibiotic); Translations: [sulfa drugs] Propensity to adverse reactions to drug [facility] Luda Medications Current Medications Medication Drug Class(es) [...] on above: Take 1 capsule by mo [facility] three times a day for 7 [...] Overview: Added automatically from request for surgery [id number] Spondylosis; intervertebral disc disorders; other back problems [...] bacterial skin contaminants 2 Days PERFORMED BY: [place] [address] PATHOLOGIST STRUCTURAL DRAFTER JOHN LUCAS M.D. Normal [facility] Comment on above: Performed By: #### C UU #### [address] XR SHLDR >/=3V AP/JULIETA AP/OTH R [...] are aortic calcifications. IMPRESSION: NO SIGNIFICANT CHANGE. Natural Resource Specialist: [employer] Transcribe Date/Time: Apr 25 2024 11:12P Dictated by : ADITI FERNANDEZ MD This examination was interpreted and the report reviewed and electronically signed by: ADITI FERNANDEZ MD on Apr 25 2024 11:16PM EST [id number] Normal [facility] XR Shoulder - left 3 Viewson 04-25-2024 IMPRESSION: NO SIGNIFICANT CHANGE. Natural Resource Specialist: [employer] Transcribe Date/Time: Apr 25 2024 11:12P Dictated [...] aortic calcifications. IMPRESSION IMPRESSION: NO SIGNIFICANT CHANGE. Natural Resource Specialist: [employer] Transcribe Date/Time: Apr 25 2024 11:12P Dictated by : ADITI FERNANDEZ MD This examination was interpreted and the report reviewed and electronically signed by: ADITI FERNANDEZ MD on Apr 25 2024 11:16PM [facility] Rad[facility] Study observation (narrative) [facility] XR Shoulder - left 3 ViewsOr dered By: Jennifer Provider on 04-25-2024 [facility] CNOVon 01-11-2024 CNOV Office Visit (ORTHMN ) QING FISCHER ([id number]) 1945 F Date Time Provider Department 01/11/24 1:40 PM WOLFGANG CHOU During your visit today, we recorded the following information about you: Weight Height 60.8 kg 1.524 m Wolfgang Chou PA-C 01/11/2024 3:50 PM Signed Patient Name: QING Sutton [facility] No: [id number] Date of Service: January 11, 2024 [facility] Patient returns for follow [...] sooner. 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 Follow-up and Disposition History for Encounter Date Provider Department Center 01/11/2024 [id number] CHOU [facility] Encounter Status:Closed by WOLFGANG CHOU on 01/11/24 Normal [facility] XR SHLDR >/=3V AP/JULIETA AP/OTH R LTon [...] shoulder arthroplasty with no fracture or osteolysis. Natural Resource Specialist: [facility] Transcribe Date/Time: Jan 11 2024 4:15P Dictated by : ERNESTINA WEAVER MD This examination was interpreted and the report reviewed and electronically signed by: ERNESTINA WEAVER MD on Jan 11 2024 4:18PM EST [id number] Normal [facility] XR Shoulder - left 3 Viewson 01-11-2024 [facility] [id number] 12-26-2023 [id number] HNO ID: [id number] Author: ROMINA DARNELL OTR/L Service: ? Author Type: Occupational Therapist Type: [id number] Filed: 12/26/2023 15:55 Note Text: [facility] Rehabilitation [facility] Sports Therapy Occupational Therapy Plan of Care Certification Patient Name: Qing Fischer : 1945 [facility] #: [id number] Date: 12/26/2023 To: Wolfgang Chou PA-C From [...] Planned: 2 Planned Treatment Interventions: Therapeutic exercise (77616), Manual therapy (60902), Self-custodial management (32272), Patient/Family/Caregiv er Education For further details regarding this patient refer to the Occupational Therapy electronically documented visit dated 12/26/2023. Provider Attestation I have reviewed the treatment plan for Qing Fischer, CCF# [id number] for the period of 12/14/23 -- 01/25/24, established on 12/26/2023. Signature certifies the need for therapy services. Normal [facility] CNTHERAPYon 12-26-2023 CNTHERAPY OT/PT/Speech Visit (ZAHIRA) QING FISCHER ([id number]) 1945 F [place] Date Time Provider Department 12/26/23 2:45 PM ROMINA DARNELL Date Time Provider Department Center 12/26/2023 2:45 PM [id number]-GMOWUYXKROMINA DARNELL Reason for Visit: OT Discharge [750] [...] CAP) - PSEUDOEPHEDRINE 30 MG TAB Normal [facility] CNTHERAPYon 12-19-2023 CNTHERAPY OT/PT/Speech Visit (ZAHIRA) QING FISCHER ([id number]) 1945 F [place] Date Time Provider Department 12/19/23 2:45 PM ROMINA DARNELL Date Time Provider Department Center 12/19/2023 2:45 PM [id number]-YWUEFIJAROMINA DARNELL Reason for Visit: Occupational Therapy [504] [...] CAP) - PSEUDOEPHEDRINE 30 MG TAB Normal [facility] CNTHERAPYon 12-12-2023 CNTHERAPY OT/PT/Speech Visit (ZAHIRA) QING FISCHER ([id number]) 1945 F Date Time Provider Department 12/12/23 2:45 PM ROMINA DARNELL Date Time Provider Department Center 12/12/2023 2:45 PM [id number]-VYFCJLIEROMINA DARNELL Reason for Visit: Occupational Therapy [504] [...] CAP) - PSEUDOEPHEDRINE 30 MG TAB Normal [facility] CNTHERAPYon 12-05-2023 CNTHERAPY OT/PT/Speech Visit (LOOTRM) AALIYAHQING Sutton ([id number]) 1945 F [place] Date Time Provider Department 12/05/23 2:45 PM ROMINA DARNELLLesley Date Time Provider Department Center 12/05/2023 2:45 PM [id number], ROMINAÁNGEL Alexander Reason for Visit: Occupational Therapy [...] Darnell OTR/Cristopher on 12/05/2023 3:30 PM Normal [facility] CNTHERAPYon 11-28-2023 CNTHERAPY OT/PT/Speech Visit (ZAHIRA) QING FISCHER ([id number]) 1945 F [place] Date Time Provider Department 11/28/23 2:00 PM ROMINA DARNELL Date Time Provider Department Center 11/28/2023 2:00 PM [id number]-YITLXWSOROMINA DARNELL Reason for Visit: Occupational Therapy [504] [...] CAP) - PSEUDOEPHEDRINE 30 MG TAB Normal [facility] CNTHERAPYon 11-21-2023 CNTHERAPY OT/PT/Speech Visit (LOOTR) QING FISCHER ([id number]) 1945 F [place] Date Time Provider Department 11/21/23 2:45 PM DOMINIQUEROMINA BARRIOS DIONELSYLesley Date Time Provider Department Center 11/21/2023 2:45 PM [id number]-UZHPYQXJROMINA DARNELL Reason for Visit: OT Progress Note [...] CAP) - PSEUDOEPHEDRINE 30 MG TAB Normal [facility] CNTHERAPYon 11-14-2023 CNTHERAPY OT/PT/Speech Visit (ZAHIRA) QING FISCHER ([id number]) 1945 F Date Time Provider Department 11/14/23 2:45 PM ROMINA DARNELL Date Time Provider Department Center 11/14/2023 2:45 PM [id number]-OIBDWZBDROMINA DARNELL Reason for Visit: Occupational Therapy [504] [...] CAP) - PSEUDOEPHEDRINE 30 MG TAB Normal [facility] CNOVon 11-09-2023 CNOV Office Visit (AVINASH ) QING FISCHER ([id number]) 1945 F Date Time Provider Department 11/09/23 10:15 AM WOLFGANG CHOU During your visit today, we recorded the following information about you: Wolfgang Chou PA-C 11/27/2023 1:57 PM Signed Patient Name: QING Sutton [facility] No: [id number] Date of Service: November 09, 2023 [facility] Postoperative patient presents for suture [...] symptoms. This note was partially generated using [employer] voice recognition system and as such may [...] GENERAL 3V OR MORE AP/TRUE AP/OTHER LEFT [[id number]] Order #: [id number] FUTURE CONSULT TO BOLOGNA LACER [19991003] Order #: [id number]: 1 FUTURE Prescriptions as of 11/27/2023 - [...] Disposition History (more content not included)... Normal [facility] XR SHLDR >/=3V AP/JULIETA AP/OTH R LTon [...] limits. IMPRESSION: 1. Intact left shoulder arthroplasty Natural Resource Specialist: WILLIAM Transcribe Date/Time: Nov 09 2023 12:31P Dictated by : MAGDI ELLISON MD This examination was interpreted and the report reviewed and electronically signed by: MAGDI ELLISON MD on Nov 09 2023 12:33PM EST [id number] Normal [facility] XR Shoulder - left 3 Viewson 11-09-2023 [facility] CNTHERAPYon 11-06-2023 CNTHERAPY OT/PT/Speech Visit (LOOTRM) QING FISCHER ([id number]) 1945 F Date Time Provider Department 11/06/23 2:00 PM TONIAFELIXÁNGEL RODRIGES Date Time Provider Department Center 11/06/2023 2:00 PM [id number]-SAROGQUIROMINA DARNELL Reason for Visit: Occupational Therapy [504] [...] Darnell OTR/Cristopher on 11/06/2023 2:52 PM Normal [facility] BRIEF OP NOTon 10-30-2023 BRIEF OP NOT HNO ID: [id number] Author: TONY COMBS MD Service: Orthopaedic Surgery Author Type: Fellow Type: Brief Op Note Filed: 10/30/2023 08:52 Note Text: Attestation signed by Tony Combs MD at 10/30/2023 8:52 AM Tony Combs MD BRIEF OP NOTE Patient Name: Qing Fischer Log ID: [id number] Surgery Date: 10/30/2023 Pre-Op/Pre-Procedure Diagnosis: Exposed orthopaedic hardware (HCC) [T84.498A] Post-Op/Post-Procedure Diagnosis: Same Surgeon(s) and Cut To Length Operator(s): Surgeon(s) and Role: * Tony Combs MD [...] Date: October 30, 2023 Time: 8:32 AM [facility] HISTORY PHYSICALon HISTORY PHYSICAL HNO ID: [id number] Author: TONY COMBS MD Service: Orthopaedic Surgery [...] Peralta MD Resident Physician Orthopaedic Surgery Pager: [phone] Email: Between 5PM to 7AM, or if urgent, please page the orthopaedic on-call resident at: [facility] ([phone]) for [facility] patients [id number] for [facility] patients [address] for [facility] patients 63624 for [facility] patients [address] for [facility] patients [facility] OPERATIVE NOon 10-30-2023 OPERATIVE NO HNO ID: [id number] Author: TONY COMBS MD Service: Orthopaedic Surgery Author Type: Physician Type: Operative Report Filed: 10/31/2023 12:27 Note Text: [facility] - Operative Report QING FISCHER : 1945 AGE: 78. SEX: F PATIENT TYPE: A HOSP SVC: OR LOCATION: [facility] ATTENDING PHYSICIAN: Tony Combs M.D. CSN NUMBER: [id number] DATE OF SURGERY/PROCEDURE: 10/30/2023 INCISION/PROCEDURE START TIME: [...] shoulder replacement arthroplasty. SURGEON: Tony Combs M.D. ENTRY LEVEL PROJECT ENGINEER: 1. Dr. Lawrence. 2. Dr. Peralta. SURGERY/PROCEDURE: Removal two k-wires under sterile conditions with local anaesthesia left shoulder ANESTHESIA: Local infiltration anesthesia by surgeon. LOCATION: [place] [address]. SURGICAL FINDINGS: Healed fracture of the scapular [...] they were retrieved with a sterile needle team cdl driver and removed. Once both removed, the [...] positioning, retraction, a (more content not included)... [facility] SURGICAL PATHOLOGYon CASE REPORT [facility] Comment on above: Order Comment: Speci men Type: DEVICE SPECIMENOrdering Facility: [facility] Address: [address] [place] [address] Result Comment: Surg ical Pathology Report Case: [id number] Authorizing Provider: Tony Combs MD Collected: 10/30/2023 08:12 AM Ordering Location: [facility] Received: 10/30/2023 10:14 AM Operating Room Pathologist: Taurus Renae MD, PhD Specimen: HARDWARE, left shoulder-removed hardware k wires Performed By: #### S ####[facility] [id number] [address] CLINICAL HISTORY Normal [facility] Comment on above: Order Comment: Speci men Type: DEVICE SPECIMENOrdering Facility: [facility] Address: [address] [place] [address] Result Comment: Pre- op diagnosis: Exposed orthopaedic hardware (HCC) [T84.498A] Performed By: #### S ####[facility] [id number] [address] FINAL DIAGNOSIS [facility] Comment on above: Order Comment: Speci men Type: DEVICE SPECIMENOrdering Facility: [facility] Address: [address] [place] [address] Result Comment: A. L eft shoulder, orthopedic hardware, removal: -K wires (gross diagnosis only). VANESSA/RUI 10/31/23 10:25 AM Performed By: #### S ####[facility] [id number] [address] FINAL PERFORMING LAB [facility] Comment on above: Order Comment: Speci men Type: DEVICE SPECIMENOrdering Facility: [facility] Address: [address] [place] [address] Result Comment: Diag nostic interpretation performed at [facility], [address] [place] [address] CLIA# [id number] Filler Machine Operator: Anthony Bruno M.D. Performed By: #### S ####[facility] [id number] [address] [place]OSS DESCRIPTION A. HARDWARE Normal [facility] Comment on above: Order Comment: Speci men Type: DEVICE SPECIMENOrdering Facility: [facility] Address: [address] [place] [address] Result Comment: Rece ived fresh, labeled left shoulder-removed hardware K wires are 2, denton metallic K wires consisting of a straight guilherme with looped end. Fragmentation is not identified. There is no soft tissue present. The specimen is for gross examination only. The specimen is reviewed with Dr. Renae. RUI October 31, 2023 10:24 AM Gross examination performed at [facility], [address] [place] [address] Performed By: #### S ####[facility] [id number] [address] OF [facility] CNOVon 10-26-2023 CNOV Office Visit (ORTHBE ) QING FISCHER ([id number]) 1945 [facility] Date Time Provider Department 10/26/23 9:45 AM TONY COMBS During your visit today, we recorded the following information about you: Tony Combs MD 10/31/2023 1:19 PM Signed Patient Name: QING Sutton [facility] No: [id number] Date of Service: October 24, 2023 [facility] Patient returns for follow [...] likely Wed - for K wire removal [facility] local anaesthesia. Meanwhile, she is to [...] patient was offered a surgery/procedure at a [facility] facility. The surgeon/proceduralist and patient have discussed [...] arthroplasty, lef (more content not included)... Normal [facility] CNOVon 10-24-2023 [facility] QING FISCHER ([id number]) 1945 F Date Time Provider Department 10/24/23 9:30 AM WOLFGANG CHOU [facility] During your visit today, we recorded the following information about you: Wolfgang Chou PA-C 10/26/2023 9:09 AM Signed Patient Name: QING FISCHER [facility] No: [id number] Date of Service: October 24, 2023 [facility] Patient returns for follow up approximately 6 weeks status post Left shoulder reverse total Shoulder Arthroplasty, extensive capsular release, biceps tenodesis, open reduction internal fixation of acromion fracture 09/11/[address] Combs. She continues to be pleased with her progress utilizing phase 1 protocols with occupational therapy. Pain is reported as minimal rated 0/10. She does report interval record changer the past week with prominence and [...] management. This note was partially generated using [email or web address] recognition system and as such may contain [...] GENERAL 3V OR MORE AP/TRUE AP/OTHER LEFT [[id number]] Order #: [id number] FUTURE cephALEXin (KEFLEX) 500 mg capsuleTake 1 [...] rotator cuff, lef*0 (more content not included)... [facility] XR SHLDR >/=3V AP/JULIETA AP/OTH R LTon [...] acromium. IMPRESSION: Postsurgical changes without interval complication. Natural Resource Specialist: WILLIAM Transcribe Date/Time: Oct 25 2023 8:41A Dictated by : CRAIG LAN MD This examination was interpreted and the report reviewed and electronically signed by: CRAIG LAN MD on Oct 25 2023 8:42AM EST [id number] [facility] CNTHERAPYon 10-16-2023 CNTHERAPY OT/PT/Speech Visit (ZAHIRA) QING FISCHER ([id number]) 1945 F [place] Date Time Provider Department 10/16/23 2:00 PM ROMINA DARNELL Date Time Provider Department Center 10/16/2023 2:00 PM [id number]-KRUTFHTKROMINA DARNELL Reason for Visit: OT Progress Note [...] CAP) - PSEUDOEPHEDRINE 30 MG TAB Normal [facility] CNTHERAPYon 10-12-2023 CNTHERAPY OT/PT/Speech Visit (AKI) MERCEEDZ FISCHERICE M ([id number]) 1945 F [place] Date Time Provider Department 10/12/23 2:00 PM ROMINA DARNELL Date Time Provider Department Center 10/12/2023 2:00 PM [id number]-TVIINYXZROMINA DARNELL Benjamin Reason for Visit: Occupational Therapy [...] CAP) - PSEUDOEPHEDRINE 30 MG TAB Normal [facility] CNTHERAPYon 10-02-2023 CNTHERAPY OT/PT/Speech Visit (ZAHIRA) AALIYAHQING Sutton ([id number]) 1945 F [place] Date Time Provider Department 10/02/23 11:45 AM ROMINA DARNELL Date Time Provider Department Center 10/02/2023 11:45 AM [id number] DARNELL Reason for Visit: Occupational Therapy [504] [...] Darnell OTR/Cristopher on 10/02/2023 12:22 PM Normal [facility] CNOVon 09-29-2023 [facility] QING FISCHER ([id number]) 1945 F Date Time Provider Department 09/29/23 10:15 AM WOLFGANG CHOU [facility] During your visit today, we recorded the following information about you: Wolfgang Chou PA-C 10/23/2023 11:33 PM Signed Patient Name: QING Sutton [facility] No: [id number] Date of Service: September 29, 2023 [facility] Patient returns for follow up [...] sooner. This note was partially generated using [employer] voice recognition system and as such may [...] GENERAL 3V OR MORE AP/TRUE AP/OTHER LEFT [[id number]] Order #: [id number] FUTURE CONSULT TO BOLOGNA LACER [19991003] Order #: [id number]: 1 FUTURE Prescriptions as of 10/23/2023 - [...] for Encounter Date Provider Department Center 09/29/2023 [id number], JACOB [facility] Encounter Status:Closed by WOLFGANG CHOU on 10/23/23 [facility] XR SHLDR >/=3V AP/JULIETA AP/OTH R LTon [...] with the acromion. IMPRESSION: No acute findings. Natural Resource Specialist: WILLIAM Transcribe Date/Time: Oct 02 2023 4:21P Dictated by : ALIHSA DIXON MD This examination was interpreted and the report reviewed and electronically signed by: ALISHA DIXON MD on Oct 02 2023 4:25PM EST [id number] [facility] Formson 09-28-2023 Forms [id number] 0TIFF [facility] Lab Reportson 09-28-2023 Lab Reports [id number] 0TIFF [facility] Ambulatory Visit Summaryon 0 09-27-2023 Ambulatory Visit Summary QING FISCHER :1945 Visit Date:09/27/2023 Ambulatory Visit Instructions Your Diagnosis Urge urinary incontinence Incomplete bladder emptying Bladder spasm Tests Performed Urnls Dip Stick Auto w/o Microscopy POC 44776 Your Care Team Attending Physician - BREONNA [...] Urnls Dip Stick Auto w/o Microscopy POC 85606 (09/27/2023) Bilirubin Urine Dipstick - Negative Blood Urine Dipstick - Negative Glucose Urine Dipstick - Negative Ketones Urine Dipstick - Negative Leukocytes Urine Dipstick - 1+ Small Nitrite Urine Dipstick - Negative Protein Urine Dipstick - Negative Specific [place] Urine Dipstick - 1.010 Urine Appearance Urine [...] for choosing us for your care. Normal [facility] Ambulatory Visit Summary QING FISCHER :1945 Visit Date:09/27/2023 Ambulatory Visit Instructions Your Diagnosis Bladder spasm Tests Performed Urnls Dip Stick Auto w/o Microscopy POC 49772 Your Care Team Attending Physician - BREONNA [...] Urnls Dip Stick Auto w/o Microscopy POC 21918 (09/27/2023) Bilirubin Urine Dipstick - Negative Blood Urine Dipstick - Negative Glucose Urine Dipstick - Negative Ketones Urine Dipstick - Negative Leukocytes Urine Dipstick - 1+ Small Nitrite Urine Dipstick - Negative Protein Urine Dipstick - Negative Specific [place] Urine Dipstick - 1.010 Urine Appearance Urine [...] choosing us for your care. [place] [facility] Patient Educationon 09-27-19 Patient Education Obstetrics [...] health care provider. General instructions ? Take lhnc-tnt-kvoyedn and prescription medicines only as told by [...] yo (more content not included)... 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 [...] (N32.89: Other specified disorders of bladder) Ordered: 97118 Measure Post Void residual urine and/or bladder capacity by US- non-imaging Urnls Dip Stick Auto w/o Microscopy POC 31774 Follow-up No qualifying data available Patient Education [...] Protein Urine Dipstick: Negative (09/27/23 13:24:00) Specific [place] Urine Dipstick: 1.010 (09/27/23 13:24:00) Urine Appearance Urine Dipstick: Clear (09/27/23 13:24 (more content not included)... Normal [facility] Comment on above: Result Comment: Elec tronically Signed By: BREONNA Garnica APRN, [place] X\.br\Date and Time Signed: 09/27/23 15:12 EST CNTHERAPYon 09-15-2023 CNTHERAPY OT/PT/Speech Visit (OTLUOP) QING FISCHER ([id number]) 1945 F [place] Date Time Provider Department 09/15/23 8:30 AM MILADIS ROBERTSON Date Time Provider Department Center 09/15/2023 8:30 AM [id number] ROBERTSON OTCYNTHIA [facility] Reason for Visit: OT EVAL [748] OT [...] PSEUDOEPHEDRINE 30 MG TAB Letter Text Normal [facility] Basic metabolic 2000 panelon 09-12-2023 Anion gap [Moles/Vol] 7 mmol/L Low 9-18 [facility] Comment on above: Order Comment: Speci men Type: BLOOD SPECIMENOrdering Facility: [facility] Address: [address] [place] [address] Performed By: #### 2 4321-2 ####[facility] LABORATORYCLIA [id number] [place] [address] [place] Calcium [Mass/Vol] 8.3 mg/dL Low 8.5-10.2 [facility] Comment on above: Order Comment: Speci men Type: BLOOD SPECIMENOrdering Facility: [facility] Address: [address] [place] [address] Performed By: #### 2 4321-2 ####[facility] LABORATORYCLIA [id number] [place] [address] [place] Chloride [Moles/Vol] 107 mmol/L High 97-105 [facility] Comment on above: Order Comment: Speci men Type: BLOOD SPECIMENOrdering Facility: [facility] Address: [address] [place] [address] Performed By: #### 2 4321-2 ####[facility] LABORATORYCLIA [id number] [place] [address] [place] CO2 [Moles/Vol] 24 mmol/L Normal 22-30 [facility] Comment on above: Order Comment: Speci men Type: BLOOD SPECIMENOrdering Facility: [facility] Address: [address] [place] [address] Performed By: #### 2 4321-2 ####[facility] LABORATORYCLIA [id number] [place] [address] [place] Creatinine [Mass/Vol] 0.75 mg/dL Normal 0.58-0.96 [facility] Comment on above: Order Comment: Speci men Type: BLOOD SPECIMENOrdering Facility: [facility] Address: [address] [place] [address] Performed By: #### 2 4321-2 ####[facility] LABORATORYCLIA [id number] [place] [address] [place] Creatinine and Glomerular filtration rate.predicted panel (S/P/Bld) 81 mL/min/1.73m??? Normal >=60 [facility] Comment on above: Order Comment: Laura jackson Type: BLOOD SPECIMENOrdering Facility: [facility] Address: [address] [place] [address] Result Comment: Nuha mated Glomerular Filtration Rate [...] actual GFR. Performed By: #### 2 4321-2 ####[facility] LABORATORYCLIA [id number] [place] [address] [place] Glucose [Mass/Vol] 115 mg/dL High 74-99 [facility] Comment on above: Order Comment: Laura jackson Type: BLOOD SPECIMENOrdering Facility: [facility] Address: [address] [place] [address] Result Comment: The [place] Diabetes Association (ADA) provides guidance for cutoff [...] Standards of Medical Care in Diabetes 2016, [place] Diabetes Association. Diabetes Care. 2016.39(Suppl 1). Performed By: #### 2 4321-2 ####[facility] LABORATORYCLIA [id number] [place] [address] [place] Potassium [Moles/Vol] 4.4 mmol/L Normal 3.7-5.1 [facility] Comment on above: Order Comment: Speci men Type: BLOOD SPECIMENOrdering Facility: [facility] Address: [address] [place] [address] Performed By: #### 2 4321-2 ####[facility] LABORATORYCLIA [id number] [place] [address] [place] [facility] Sodium [Moles/Vol] 138 mmol/L Normal 136-144 [facility] Comment on above: Order Comment: Speci men Type: BLOOD SPECIMENOrdering Facility: [facility] Address: [address] [place] [address] Performed By: #### 2 4321-2 ####[facility] LABORATORYCLIA [id number] [place] [address] [place] Urea nitrogen [Mass/Vol] 18 mg/dL Normal 7-21 [facility] Comment on above: Order Comment: Speci men Type: BLOOD SPECIMENOrdering Facility: [facility] Address: [address] [place] [address] Performed By: #### 2 4321-2 ####[facility] LABORATORYCLIA [id number] [place] [address] [facility] PK CASE MGT INIT ASSESon 2022 CASE MGT INIT ASSES HNO ID: [id number] Author: Vivian Davis RN Service: Care Management Author Type: Registered Nurse Type: Care Mgt Initial Assessment Filed: 09/12/2023 3:30 PM Note Text: CARE MANAGEMENT: ASSESSMENT AND DISCHARGE PLAN SERVICE DATE: September 12, 2023 SERVICE TIME: 1310 PCP: Nona Mcknight MD Primary Contact: Extended Emergency Contact Information Primary Emergency Contact: SINA FISCHER Address: [address] [place] [address] Mobile Relation: Spouse Secondary Emergency Contact: Matt Rogers Relation: Son Admission Status: Extended Recovery Insurance Provider: EBONY GILMAN [facility] [place] Planning requested by: Per Department Practice Potential Transition Plans Home;Outpatient Therapy Advance Directives Current Advance Directive: Health Care Power of Transportation Dispatch Manager In Chart: No Current Living Arrangements and Support Lives with: Spouse/significant other Type of Residence: Private Residence (House) Does the patient have to climb stairs at home?: Yes Support: Current Services/Equipment Current Post-Acute Service(s): DME Current DME Type: Cane Discharge Planning Patient Goal(s): Better mobility, Less pain [place] of Choice Explained: [place] of Choice Given: No Reason Not Given: [...] Physician Primary Care Physician Name/Phone: Nona Mcknight [phone] Additional Information: Summary of Care Post-Acute Discharge Plan: Patient assessed at this time. She lives with her and he will assist and transport home. She will be staying with the Son locally until tomorrow. Plan is to discharge today when all goals are met. Scripts sent to [facility]. She is scheduled for outpt OT Monday, requested an earlier day. She has no other needs. SIGNATURE: Vivian Davis RN PATIENT NAME: Qing Fischer DATE: September 12, 2023 TIME: 1:14 PM CONTACT #: [phone] Normal [facility] CBC panel Auto (Bld)on 09-12 Erythrocyte distribution width (RBC) [Ratio] 13.9 % Normal 11.5-15.0 [facility] Comment on above: Order Comment: Speci men Type: BLOOD SPECIMENOrdering Facility: [facility] Address: [address] [place] [address] Performed By: #### 5 8410-2 ####[facility] LABORATORYCLIA [id number] [address] [address] [place] Hematocrit (Bld) [Volume fraction] 27.9 % Low 36.0-46.0 [facility] Comment on above: Order Comment: Speci men Type: BLOOD SPECIMENOrdering Facility: [facility] Address: [address] [place] [address] Performed By: #### 5 8410-2 ####[facility] LABORATORYCLIA [id number] [address] [place] [address] [place] Hemoglobin (Bld) [Mass/Vol] 8.8 g/dL Low 11.5-15.5 [facility] Comment on above: Order Comment: Speci men Type: BLOOD SPECIMENOrdering Facility: [facility] Address: [address] [place] [address] Performed By: #### 5 8410-2 ####[facility] LABORATORYCLIA [id number] [address] [place] MCH (RBC) [Entitic mass] 27.9 pg Normal 26.0-34.0 [facility] Comment on above: Order Comment: Speci men Type: BLOOD SPECIMENOrdering Facility: [facility] Address: [address] [place] [address] Performed By: #### 5 8410-2 ####[facility] LABORATORYCLIA [id number] [address] [place] MCHC (RBC) [Mass/Vol] 31.5 g/dL Normal 30.5-36.0 [facility] Comment on above: Order Comment: Speci men Type: BLOOD SPECIMENOrdering Facility: [facility] Address: [address] [place] [address] Performed By: #### 5 8410-2 ####[facility] LABORATORYCLIA [id number] [address] [place] [address] [place] MCV (RBC) [Entitic vol] 88.6 fL Normal 80.0-100.0 [facility] Comment on above: Order Comment: Speci men Type: BLOOD SPECIMENOrdering Facility: [facility] Address: [address] [place] [address] Performed By: #### 5 8410-2 ####[facility] LABORATORYCLIA [id number] [address] [place], [place] [address] [place] Nucleated RBC (Bld) [#/Vol] 10*3/uL Normal <0.01 [facility] Comment on above: Order Comment: Speci men Type: BLOOD SPECIMENOrdering Facility: [facility] Address: [address] [place] [address] Performed By: #### 5 8410-2 ####[facility] LABORATORYCLIA [id number] [address] [place], [place] [address] [place] Platelet mean volume (Bld) [Entitic vol] 8.6 fL Low 9.0-12.7 [facility] Comment on above: Order Comment: Speci men Type: BLOOD SPECIMENOrdering Facility: [facility] Address: [address] [place] [address] Performed By: #### 5 8410-2 ####[facility] LABORATORYCLIA [id number] [address] [place] [address] [place] Platelets (Bld) [#/Vol] 283 10*3/uL Normal 150-400 [facility] Comment on above: Order Comment: Speci men Type: BLOOD SPECIMENOrdering Facility: [facility] Address: [address] [place] [address] Performed By: #### 5 8410-2 ####[facility] LABORATORYCLIA [id number] [address] [place], [place] [address] [place] RBC (Bld) [#/Vol] 3.15 10*6/uL Low 3.90-5.20 [facility] Comment on above: Order Comment: Speci men Type: BLOOD SPECIMENOrdering Facility: [facility] Address: [address] [place] [address] Performed By: #### 5 8410-2 ####[facility] LABORATORYCLIA [id number] [place] [address] [place] WBC (Bld) [#/Vol] 10.42 10*3/uL Normal 3.70-11.00 [facility] Comment on above: Order Comment: Speci men Type: BLOOD SPECIMENOrdering Facility: [facility] Address: [place] [address] Performed By: #### 5 8410-2 ####[facility] [id number] [address] OF [facility] CARMELADSrobert 09-12-2023 CNDS HNO ID: [id number] Author: Juan Pope MD Service: Orthopaedic Surgery [...] The patient was electively admitted to the [facility] on 09/11/2023. Surgery was scheduled and on [...] 09/15/2023 8:30 AM Miladis Robertson OTR/Cristopher OTLUOP [facility] 09/22/2023 10:45 AM Wolfgang Chou PA-C [facility] Discharge Medications: Medication List START taking these [...] Your Medications These medications were sent to [facility] [address] [place] [address] Hours: Monday-Monday, 9a (more content not included)... [facility] CONSULT PROGon 09-12-2023 CONSULT PROG HNO ID: [id number] Author: Albina Arzate MD Service: General Internal [...] meaning may be extrapolated by contextual derivation [facility] THERAPY NTon 09-12-2023 THERAPY NT HNO ID: [id number] Author: Oswaldo Vernon PT Service: Physical Therapy Author Type: Physical Therapist Type: Therapy (PT/OT/Speech/Resp) Filed: 09/12/2023 11:48 AM Note Text: Physical Therapy Evaluation SERVICE DATE: 09/12/2023 SERVICE TIME: 1116 to 1131 ROOM: [place] [address] Recommended Discharge Disposition: Home Recommended Discharge Disposition [...] on feet Interventions Provided: Evaluation $ Evaluation-Low (16933) Billed Units: 1 unit Training AND Education [...] therapy evaluation/treatment. SIGNATURE: (more content not included)... [facility] THERAPY NT HNO ID: [id number] Author: Samantha Jaeger OT/L Service: Occupational Therapy Author Type: Occupational Therapist Type: Therapy (PT/OT/Speech/Resp) Filed: 09/12/2023 10:10 AM Note Text: Occupational Therapy Evaluation SERVICE DATE: 09/12/2023 SERVICE TIME: 904 to 944 ROOM: [place] [address] Total Joint Replacement Discharge Readiness: Cleared from [...] (ADL), Reduced mobility-other Interventions Provided: Evaluation, Self Penitentiary Management (86617), Therapeutic Exercise (19958) $ Evaluation - Low (56973) Billed Units: 1 unit Therapeutic Exercise (19901) Treatment Minutes: 10 $ Therapeutic Exercise (31662) Billed Units: 1 unit Self Penitentiary Management (98849) Treatment Minutes: 15 $ Self Penitentiary Management (11659) Billed Units: 1 unit Training AND Education Provided in: Adaptive Equipment/DME, Activity Adaptation/Store Clerk y Strategies, Bed Mobility, Benefits of In-Hospital Mobility, Discharge Planning, Expected Functional Level, Functional Mobility Involving ADLs, Lower Extremity Dressing, Home Set-up/Modifications, Precautions/Restrictio ns, Positioning, Role of Occupational Therapy, Standing Balance to Improve [place] with ADLs/Self-Care, Transfer - Sit to Stand, Transfer - Bed to Chair, Upper Extremity Bathing, Upper Extremity Dressing, Transfer - Car, Patient Exercise/Therapy Program Support Needs, Exercise Program The Following Therapeutic Skills Were Used: Assessment of Tolerance Including Vitals Response to Activity, Cues for Sequencing/Proper Technique for A (more content not included)... Normal [facility] ANES POSTPROC EVALon 023 ANES POSTPROC EVAL HNO ID: [id number] Author: Sil Sanchez MD Service: Anesthesiology Author [...] September 11, 2023 TIME: 5:59 PM CSN: [id number] [facility] ANES PRE-OPon 09-11-2023 ANES PRE-OP HNO ID: [id number] Author: Sil Sanchez MD Service: Anesthesiology Author [...] fracture, bone grafting, possible tendon transfer. Location: [place] [address] / OR Surgeons: Tony Combs MD Estimated [...] Airway type: ETT NPO Status: adequate Beta Clinotn Monitoring Plan Monitoring plan: standard ASA. Post Procedure Analgesic Plan Postoperative analgesic plan: parenteral or oral opioids, multimodal analgesia and peripheral nerve block. Informed Consent Anesthetic risks, benefits, alternatives, personnel and consent discussed: yes. Patient / Responsible Alliance Party agrees to proceed: yes Patient / Surrogate [...] September 11, 2023 TIME: 10:58 AM CSN: [id number] [facility] BRIEF OP NOTon 09-11-2023 BRIEF OP NOT HNO ID: [id number] Author: Rex Mckeon MD Service: Hand Surgery Author Type: Fellow Type: Brief Op Note Filed: 09/11/2023 5:39 PM Note Text: BRIEF OP NOTE Patient Name: Qing Fischer Log ID: [id number] Surgery Date: 09/11/2023 Pre-Op/Pre-Procedure Diagnosis: Closed displaced fracture of acromial process, unspecified laterality, sequela [S42.123S] Rotator cuff tear arthropathy of left shoulder [M75.102, M12.812] Injury of tendon of long head of biceps, left, initial encounter [S46.102A] Contracture of shoulder, 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 Item Serial No. Sales Vice President Lot No. LRB No. Used Action TRABECULAR METAL REVERSE PLUS BASE PLATE 15MM Implant [employer] [id number] Left 1 Implanted SCREW NCB ANATOMICAL SHOULDER 4.5MM PROTASUL-64WF 24MM BONE INVERSE REVERSE - [id number] Screw SCREW NCB ANATOMICAL SHOULDER 4.5MM PROTASUL-64WF 24MM BONE INVERSE REVERSE [employer] [id number] Left 1 Wasted SCREW NCB ANATOMICAL SHOULDER 4.5MM PROTASUL-64WF 33MM BONE INVERSE REVERSE - [id number] Screw SCREW NCB ANATOMICAL SHOULDER 4.5MM PROTASUL-64WF 33MM BONE INVERSE REVERSE [employer] [id number] Left 1 Implanted SCREW NCB 4.5MM PROTASUL-64WF 30MM BONE INVERSE REVERSE LOCK STERILE - [id number] Screw SCREW NCB 4.5MM PROTASUL-64WF 30MM BONE INVERSE REVERSE LOCK STERILE [employer] [id number] Left 1 Implanted TRABECULAR METAL REVERSE PLUS SHOULDER HEAD 36MM 0DEG Implant [employer] [id number] Left 1 Implanted WIRE LIZ 1.6MM STAINLESS STEEL 5.5IN FIXATION TROCAR SMOOTH GUIDE - [id number] Wire WIRE LIZ 1.6MM STAINLESS STEEL 5.5IN FIXATION TROCAR SMOOTH GUIDE [employer] [id number] Left 1 Implanted STEM 12MM TRABECULAR METAL TIVANIUM 130MM HUMERAL REVERSE STERILE SHOULDER - [id number] Joint STEM 12MM TRABECULAR METAL TIVANIUM 130MM HUMERAL REVERSE STERILE SHOULDER [employer] [id number] Left 1 Implanted WIRE LIZ 1.6MM STAINLESS STEEL 5.5IN FIXATION TROCAR SMOOTH GUIDE - [id number] Wire WIRE LIZ 1.6MM STAINLESS STEEL 5.5IN FIXATION TROCAR SMOOTH GUIDE [employer] [id number] Left 1 Implanted LINER 36MM 12D 65D TRABECULAR METAL POLYETHYLENE H+6MM SHOULDER REVERSE - [id number] Joint LINER 36MM 12D 65D TRABECULAR METAL POLYETHYLENE H+6MM SHOULDER REVERSE [employer] [id number] Left 1 Implanted CEMENT SIMPLEX P TOBRAMYCIN BONE FULL DOSE RADIOPAQUE PREBLEND STERILE - [id number] Cement / Putty CEMENT SIMPLEX P TOBRAMYCIN BONE FULL DOSE RADIOPAQUE PREBLEND STERILE [facility] [id number] Left 1 Implanted CEMENT SIMPLEX P TOBRAMYCIN BONE FULL DOSE RADIOPAQUE PREBLEND STERILE - [id number] Cement / Putty CEMENT SIMPLEX P TOBRAMYCIN BONE FULL DOSE RADIOPAQUE PREBLEND STERILE [facility] [id number] Left 1 Implanted Estimated Blood Loss: 250mL Drains: None Specimens: left shoulder and acromion Plan: 1) Admission for observation, pain control, and PT 2) Keep dressing clean, dry, and intact until follow-up Signature: Rex Mckeon MD Date: September 11, 2023 Time: 5:39 PM [facility] CONSULTon 09-11-2023 CONSULT HNO ID: [id number] Author: Albina Arzate MD Service: General Internal [...] flush bag 20 mL INTRAVENOUS PRN Rex Mcekon MD NaCl 0.9% iv infusion 75 mL/hr [...] (COLACE) 100 mg ORAL BID [place], [place], LIVESTOCK TRUCKER.ROAD ROLLER OPERATOR polyethylene glycol 3350 17 g packet 17 g ORAL DAILY [place], [place], LIVESTOCK TRUCKER.ROAD ROLLER OPERATOR ALLERGIES Allergen Reactions Codeine Mental Status Change Tylenol with codeine. Hot/ flushed. Amoxicillin Rash Nickel Rash Family History Problem Relation Age of Onset Hypertension Father Coronary Artery Disease Father Hypertension Sister Coronary Artery Disease Sister [place] in 30s Anesthesia Problems No Family History [...] (pg) Date Value (more content not included)... [facility] NURSING PROGon 09-11-2023 NURSING PROG HNO ID: [id number] Author: Yazmin Heard, ADELAIDA Service: Nursing Author [...] and make recommendations. Pt resting comfortably. Normal [facility] OPERATIVE NOon 09-11-2023 OPERATIVE NO HNO ID: [id number] Author: Tony Combs MD Service: Orthopaedic Surgery Author Type: Physician Type: Operative Report Filed: 09/12/2023 9:49 AM Note Text: [facility] - Operative Report QING FISCHER : 1945 AGE: 78. SEX: F PATIENT TYPE: I HOSP SVC: Surgical LOCATION: [facility] ATTENDING PHYSICIAN: Tony Combs M.D. CSN NUMBER: [id number] DATE OF SURGERY/PROCEDURE: 09/11/2023 INCISION/PROCEDURE START TIME: [...] the left shoulder. SURGEON: Tony Combs M.D. ENTRY LEVEL PROJECT ENGINEER: Dr. Mckeon. SURGERY/PROCEDURE: Revision surgery performed through [...] general anesthesia by the Anesthesia team. LOCATION: [place] [address]. SURGICAL FINDINGS: It should be noted this [...] transitioned medial, these (more content not included)... [facility] SURGICAL PATHOLOGYon 023 CASE REPORT [facility] Comment on above: Order Comment: Speci men Type: SPECIMEN FROM BONEOrdering Facility: [facility] Address: [address] [place] [address] Result Comment: Surg ica Pathology Report Case: [id number] Authorizing Provider: Tony Combs MD Collected: 09/11/2023 02:30 PM Ordering Location: [facility] Received: 09/12/2023 02:27 PM Operating Room Pathologist: Magdi Alfredo MD Specimens: A) - HUMERAL HEAD LEFT, bone & tissue left shoulder joint B) - BONE RESECTION, acromium non-union bone left Performed By: #### S ####[facility] LABIA [id number] [place] [address] [place] CLINICAL HISTORY [facility] Comment on above: Order Comment: Speci men Type: SPECIMEN FROM BONEOrdering Facility: [facility] Address: [address] [place] [address] Result Comment: Pre- op diagnosis: Closed displaced fracture of acromial process, unspecified laterality, sequela [S42.123S] Rotator cuff tear arthropathy of left shoulder [M75.102, M12.812] Injury of tendon of long head of biceps, left, initial encounter [S46.102A] Contracture of shoulder, left [M24.512] Performed By: #### S ####[facility] [id number] [address] OF [facility] FINAL DIAGNOSIS [facility] Comment on above: Order Comment: Speci men Type: SPECIMEN FROM BONEOrdering Facility: [facility] Address: [address] [place] [address] Result Comment: A. L eft shoulder, arthroplasty: - Degenerative joint disease. B. 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 Performed By: #### S ####[facility] [id number] OF PK FINAL PERFORMING LAB Normal [facility] Comment on above: Order Comment: Speci men Type: SPECIMEN FROM BONEOrdering Facility: [facility] Address: [address] [place] [address] Result Comment: Diag nostic interpretation performed at [facility], [facility] [place] [id number] CLIA# [id number] Filler Machine Operator: Anthony Bruno M.D. Performed By: #### S ####[facility] LABCLIA [id number] [address] GROSS DESCRIPTION Normal [facility] Comment on above: Order Comment: Speci men Type: SPECIMEN FROM BONEOrdering Facility: [facility] Address: [address] [place] [address] Result Comment: A. H UMERAL HEAD LEFT [...] no areas of induration or nodularity present. Stunt Driver sections are submitted as follows: A1 soft [...] 2023 5:15 PM Gross examination performed at [facility], [address] [place] [address] Performed By: #### S ####[facility] LABCLIA [id number] [place] [id number] [place] XR SHOULDER SPECIFY [...] Satisfactory postoperative appearance of left shoulder arthroplasty. Natural Resource Specialist: WILLIAM Transcribe Date/Time: Sep 12 2023 8:36A Dictated by : MIRI CHONG MD This examination was interpreted and the report reviewed and electronically signed by: MIRI CHONG MD on Sep 12 2023 8:38AM EST [id number] Normal [facility] Basic metabolic 2000 panelon 09-07-2023 Anion gap [Moles/Vol] 16 mmol/L Normal - [facility] Comment on above: Order Comment: Speci men Type: BLOOD SPECIMENOrdering Facility: [facility] Address: [address] [place] [address] Performed By: #### 2 4321-2 ####[facility] LABCLIA [id number] [place] [address] [place] Calcium [Mass/Vol] 9.8 mg/dL Normal 8.5-10.2 [facility] Comment on above: Order Comment: Speci men Type: BLOOD SPECIMENOrdering Facility: [facility] Address: [address] [place] [address] Performed By: #### 2 4321-2 ####[facility] LABCLIA [id number] [place] [id number] [place] Chloride [Moles/Vol] 103 mmol/L Normal 97-105 [facility] Comment on above: Order Comment: Speci men Type: BLOOD SPECIMENOrdering Facility: [facility] Address: [address] [place] [address] Performed By: #### 2 4321-2 ####[facility] LABCLIA [id number] [place] [address] [place] CO2 [Moles/Vol] 22 mmol/L Normal 22-30 [facility] Comment on above: Order Comment: Speci men Type: BLOOD SPECIMENOrdering Facility: [facility] Address: [address] [place] [address] Performed By: #### 2 4321-2 ####[facility] LABCLIA [id number] [place] [address] [place] Creatinine [Mass/Vol] 0.73 mg/dL Normal 0.58-0.96 [facility] Comment on above: Order Comment: Speci men Type: BLOOD SPECIMENOrdering Facility: [facility] Address: [address] [place] [address] Performed By: #### 2 4321-2 ####[facility] LABCLIA [id number] [address] STATES OF [place] Creatinine and Glomerular filtration rate.predicted panel (S/P/Bld) 83 mL/min/1.73m??? Normal >=60 [facility] Comment on above: Order Comment: Speci men Type: BLOOD SPECIMENOrdering Facility: [facility] Address: [address] [place] [address] Result Comment: Nuha mated Glomerular Filtration Rate [...] actual GFR. Performed By: #### 2 4321-2 ####[facility] LABCLIA [id number] [place] [address] [place] Glucose [Mass/Vol] 84 mg/dL Normal 74-99 [facility] Comment on above: Order Comment: Speci men Type: BLOOD SPECIMENOrdering Facility: [facility] Address: [address] [place] [address] Result Comment: The [place] Diabetes Association (ADA) provides guidance for cutoff [...] Standards of Medical Care in Diabetes 2016, [place] Diabetes Association. Diabetes Care. 2016.39(Suppl 1). Performed By: #### 2 4321-2 ####[facility] LABCLIA [id number] [place] [address] [place] Potassium [Moles/Vol] 4.3 mmol/L Normal 3.7-5.1 [facility] Comment on above: Order Comment: Speci men Type: BLOOD SPECIMENOrdering Facility: [facility] Address: [address] [place] [address] Performed By: #### 2 4321-2 ####[facility] LABCLIA [id number] [place] [address] [place] Sodium [Moles/Vol] 141 mmol/L Normal 136-144 [facility] Comment on above: Order Comment: Speci men Type: BLOOD SPECIMENOrdering Facility: [facility] Address: [address] [place] [address] Performed By: #### 2 4321-2 ####[facility] LABCLIA [id number] [place] [address] [place] Urea nitrogen [Mass/Vol] 14 mg/dL Normal 7-21 [facility] Comment on above: Order Comment: Speci men Type: BLOOD SPECIMENOrdering Facility: [facility] Address: [address] [place] [address] Performed By: #### 2 4321-2 ####[facility]CLIA [id number] [place] [address] [place] CBC W Auto Differential pane l (Bld)on 09-07-2023 Basophils (Bld) [#/Vol] 0.03 10*3/uL Normal <0.11 [facility] Comment on above: Order Comment: Speci men Type: BLOOD SPECIMENOrdering Facility: [facility] Address: [address] [place] [address] Performed By: #### 5 7021-8 ####[facility]CLIA [id number] [place] [address] [place] Basophils/100 WBC (Bld) 0.4 % Normal [facility] Comment on above: Order Comment: Speci men Type: BLOOD SPECIMENOrdering Facility: [facility] Address: [address] [place] [address] Performed By: #### 5 7021-8 ####[facility]CLIA [id number] [place] [address] [place] Differential cell count method Nom (Bld) Auto Normal [facility] Comment on above: Order Comment: Speci men Type: BLOOD SPECIMENOrdering Facility: [facility] Address: [address] [place] [address] Performed By: #### 5 7021-8 ####[facility]CLIA [id number] [place] [address] [place] Eosinophils (Bld) [#/Vol] 0.10 10*3/uL Normal <0.46 [facility] Comment on above: Order Comment: Speci men Type: BLOOD SPECIMENOrdering Facility: [facility] Address: [address] [place] [address] Performed By: #### 5 7021-8 ####[facility]CLIA [id number] [place] [address] [place] Eosinophils/100 WBC (Bld) 1.3 % Normal [facility] Comment on above: Order Comment: Speci men Type: BLOOD SPECIMENOrdering Facility: [facility] Address: [address] [place] [address] Performed By: #### 5 7021-8 ####[facility]CLIA [id number] [place] [address] [place] Erythrocyte distribution width (RBC) [Ratio] 14.1 % Normal 11.5-15.0 [facility] Comment on above: Order Comment: Speci men Type: BLOOD SPECIMENOrdering Facility: [facility] Address: [address] [place] [address] Performed By: #### 5 7021-8 ####[facility] LABIA [id number] [place] [address] [place] Hematocrit (Bld) [Volume fraction] 41.4 % Normal 36.0-46.0 [facility] Comment on above: Order Comment: Speci men Type: BLOOD SPECIMENOrdering Facility: [facility] Address: [address] [place] [address] Performed By: #### 5 7021-8 ####[facility]CLIA [id number] [place] [address] [place] Hemoglobin (Bld) [Mass/Vol] 13.2 g/dL Normal 11.5-15.5 [facility] Comment on above: Order Comment: Speci men Type: BLOOD SPECIMENOrdering Facility: [facility] Address: [address] [place] [address] Performed By: #### 5 7021-8 ####[facility]CLIA [id number] [place] [address] [place] Immature granulocytes (Bld) [#/Vol] 10*3/uL Normal <0.10 [facility] Comment on above: Order Comment: Speci men Type: BLOOD SPECIMENOrdering Facility: [facility] Address: [address] [place] [address] Performed By: #### 5 7021-8 ####[facility]CLIA [id number] [place] [address] [place] Immature granulocytes/100 WBC (Bld) 0.3 % Normal [facility] Comment on above: Order Comment: Speci men Type: BLOOD SPECIMENOrdering Facility: [facility] Address: [address] [place] [address] Performed By: #### 5 7021-8 ####[facility]CLIA [id number] [place] [address] [place] Lymphocytes (Bld) [#/Vol] 1.94 10*3/uL Normal 1.00-4.00 [facility] Comment on above: Order Comment: Speci men Type: BLOOD SPECIMENOrdering Facility: [facility] Address: [address] [place] [address] Performed By: #### 5 7021-8 ####[facility]CLIA [id number] [place] [address] [place] Lymphocytes/100 WBC (Bld) 24.4 % Normal [facility] Comment on above: Order Comment: Speci men Type: BLOOD SPECIMENOrdering Facility: [facility] Address: [address] [place] [address] Performed By: #### 5 7021-8 ####[facility]CLIA [id number] [place] [address] [place] MCH (RBC) [Entitic mass] 28.6 pg Normal 26.0-34.0 [facility] Comment on above: Order Comment: Speci men Type: BLOOD SPECIMENOrdering Facility: [facility] Address: [address] [place] [address] Performed By: #### 5 7021-8 ####[facility]CLIA [id number] [place] [address] [place] MCHC (RBC) [Mass/Vol] 31.9 g/dL Normal 30.5-36.0 [facility] Comment on above: Order Comment: Speci men Type: BLOOD SPECIMENOrdering Facility: [facility] Address: [address] [place] [address] Performed By: #### 5 7021-8 ####[facility]CLIA [id number] [place] [address] [place] MCV (RBC) [Entitic vol] 89.6 fL Normal 80.0-100.0 [facility] Comment on above: Order Comment: Speci men Type: BLOOD SPECIMENOrdering Facility: [facility] Address: [address] [place] [address] Performed By: #### 5 7021-8 ####[facility]CLIA [id number] [place] [address] [place] Monocytes (Bld) [#/Vol] 0.99 10*3/uL High <0.87 [facility] Comment on above: Order Comment: Speci men Type: BLOOD SPECIMENOrdering Facility: [facility] Address: [address] [place] [address] Performed By: #### 5 7021-8 ####[facility]CLIA [id number] [place] [address] [place] Monocytes/100 WBC (Bld) 12.5 % Normal [facility] Comment on above: Order Comment: Speci men Type: BLOOD SPECIMENOrdering Facility: [facility] Address: [address] [place] [address] Performed By: #### 5 7021-8 ####[facility]CLIA [id number] [place] [address] [place] Neutrophils (Bld) [#/Vol] 4.87 10*3/uL Normal 1.45-7.50 [facility] Comment on above: Order Comment: Speci men Type: BLOOD SPECIMENOrdering Facility: [facility] Address: [address] [place] [address] Performed By: #### 5 7021-8 ####[facility]CLIA [id number] [place] [address] [place] Neutrophils/100 WBC (Bld) 61.1 % Normal [facility] Comment on above: Order Comment: Speci men Type: BLOOD SPECIMENOrdering Facility: [facility] Address: [address] [place] [address] Performed By: #### 5 7021-8 ####[facility]CLIA [id number] [place] [address] [place] Nucleated RBC (Bld) [#/Vol] 10*3/uL Normal <0.01 [facility] Comment on above: Order Comment: Speci men Type: BLOOD SPECIMENOrdering Facility: [facility] Address: [address] [place] [address] Performed By: #### 5 7021-8 ####[facility] LABCLIA [id number] [place] [address] [place] Nucleated RBC/100 WBC (Bld) [Ratio] 0.0 /100 WBC Normal [facility] Comment on above: Order Comment: Speci men Type: BLOOD SPECIMENOrdering Facility: [facility] Address: [address] [place] [address] Performed By: #### 5 7021-8 ####[facility]CLIA [id number] [place] [address] [place] Platelet mean volume (Bld) [Entitic vol] 9.4 fL Normal 9.0-12.7 [facility] Comment on above: Order Comment: Speci men Type: BLOOD SPECIMENOrdering Facility: [facility] Address: [address] [place] [address] Performed By: #### 5 7021-8 ####[facility]CLIA [id number] [place] [address] [place] Platelets (Bld) [#/Vol] 395 10*3/uL Normal 150-400 [facility] Comment on above: Order Comment: Speci men Type: BLOOD SPECIMENOrdering Facility: [facility] Address: [address] [place] [address] Performed By: #### 5 7021-8 ####[facility]CLIA [id number] [place] [address] [place] RBC (Bld) [#/Vol] 4.62 10*6/uL Normal 3.90-5.20 [facility] Comment on above: Order Comment: Speci men Type: BLOOD SPECIMENOrdering Facility: [facility] Address: [address] [place] [address] Performed By: #### 5 7021-8 ####[facility]CLIA [id number] [place] [address] [place] WBC (Bld) [#/Vol] 7.95 10*3/uL Normal 3.70-11.00 [facility] Comment on above: Order Comment: Speci men Type: BLOOD SPECIMENOrdering Facility: [facility] Address: [address] [place] [address] Performed By: #### 5 7021-8 ####[facility] LABCLIA [id number] [place] [id number] [place] [id number] 09-07-2023 ECG01 Ventricular Rate : 9 6 BPM Atrial Rate : 96 BPM P-R Interval : 148 ms QRS Duration : 118 ms Q-T Interval : 390 ms QTC Calculation(Bazett) : 492 ms Calculated P Towson : 24 degrees Calculated R Towson : 59 degrees Calculated T Towson : 12 degrees NORMAL SINUS RHYTHM POSSIBLE LEFT ATRIAL ENLARGEMENT COMPLETE RIGHT BUNDLE BRANCH BLOCK ABNORMAL ECG Confirmed by NAFISA KAHN MD ([id number]) on 09/13/2023 4:18:57 PM NAME : QING FISCHER PID : [id number] : 1945 Gender : Female Race : [...] KRISTI VASQUEZ Acquired by : Hayden العلي [facility] HISTORY PHYSICALon HISTORY PHYSICAL HNO ID: [id number] Author: Kristi Vasquez 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 Author Type: Nurse Practitioner Type: [...] Father Hypertension Sister Coronary Artery Disease Sister [place] in 30s Anesthesia Problems No Family History [...] fevers. Neuro: No history of TIA's, stroke, SCOURER tumor, impaired sensorium, hemiplegia, paraplegia or quadraplegia. No neurological symptoms or problems. Respiratory: No history of current cough or dyspnea, or pneumonia in the past 6 weeks. No history of respiratory/pulmonary symptoms or problems. Cardiovascular: No history of HTN requiring medication, no history of angina, CHF, WI, cardiac surgery or stents. Denies rest pain, [...] Ht 5' (more content not included)... Normal [facility] STAPH AUREUS PCRon 3 S. aureus and MRSA panel MOISES+probe (Nose) Normal Negative [facility] Comment on above: Order Comment: Speci manuel Type: SWAB OF INTERNAL NOSEOrdering Facility: [facility] Address: [address] [place] [address] Result Comment: Nega tive for Staphylococcus aureus by PCR. Negative for MRSA by PCR Performed By: #### S APCR ####[facility] LABCLIA [id number] [facility] [place] [address] [place] TYPE AND SCREEN,30 DAYon ABO O Normal [facility] Comment on above: Order Comment: Speci men Type: BLOOD SPECIMEN [facility] Address: [address] [place] [address] Performed By: #### T SCR30 #### [facility] CLIA [id number] [address] [place] HISTORICAL AB SCR STATUS Negative Normal [facility] Comment on above: Order Comment: Speci men Type: BLOOD SPECIMEN [facility] Address: [address] [place] [address] Performed By: #### T SCR30 #### [facility] CLIA [id number] [address] [place] Rh Nom (Bld) Positive Normal [facility] Comment on above: Order Comment: Speci men Type: BLOOD SPECIMEN [facility] Address: [address] [place] [address] Performed By: #### T SCR30 #### [facility] CLIA [id number] [address] [place] CNOVon 08-29-2023 [facility] QING FISCHER ([id number]) 1945 F Date Time Provider Department 08/29/23 1:15 PM [facility] During your visit today, we recorded the following information about you: Tony Combs MD 08/30/2023 2:03 PM Signed [facility] DEPART[facility] OF [facility]THOPAEDICS Evaluation with Tony Combs Jr., M.D. Patient Name: QING FISCHER [facility] No: [id number] : 1945 Qing Fischer is a pleasant [...] patient was offered a surgery/procedure at a [facility] facility. The surgeon/proceduralist and patient have discussed [...] left, initial encou (more content not included)... [facility] CT 3D POST PROCESSINGon - CT 3D [...] thoracic aorta. Mild coronary artery atherosclerotic calcification. Certified Nurses' Aide images demonstrate reverse RIGHT total shoulder arthroplasty. IMPRESSION: Severe LEFT rotator cuff arthropathy. Natural Resource Specialist: WILLIAM Transcribe Date/Time: Aug 03 2023 2:24P Dictated by : SERG LÓPEZ DO This examination was interpreted and the report reviewed and electronically signed by: SERG LÓPEZ DO on Aug 03 2023 2:46PM EST [id number] [facility] CT SHOULDER WO IVCON LTon CT SHOULDER [...] thoracic aorta. Mild coronary artery atherosclerotic calcification. Certified Nurses' Aide images demonstrate reverse RIGHT total shoulder arthroplasty. IMPRESSION: Severe LEFT rotator cuff arthropathy. Natural Resource Specialist: WILLIAM Transcribe Date/Time: Aug 03 2023 2:24P Dictated by : SERG LÓPEZ DO This examination was interpreted and the report reviewed and electronically signed by: SERG LÓPEZ DO on Aug 03 2023 2:46PM EST [id number] [facility] 07[facility]2023 [facility] QING FISCHER ([id number]) 1945 F Date Time Provider Department 07/18/23 11:45 AM TONY COMBS [facility] During your visit today, we recorded the following information about you: Weight Height 62.1 kg 1.524 m Tony Combs MD 07/22/2023 10:43 AM Signed [facility] Evaluation with Tony Combs Jr., M.D. Patient Name: QING Sutton AALIYAH [facility] No: [id number] : 1945 This is an active 78 [...] Artery Disease Father Coronary Artery Disease Sister [place] in 30s PAST SURGICAL HISTORY Procedure Laterality [...] - Fully Assessed Reason for Visit: New [[id number]] Primary Visit Diagnosis:Rotator cuff tear arthropathy of left shoulder [M75.102, M12.812] Other Visit Diagnoses:Chronic right shoulder pain [M25.511, G89.29] Nontraumatic complete tear of rotator cuff, left [M75.122] Injury of tendon of long head of biceps, left, initial encounter [S46.102A] Closed displaced fracture of acromial process, unspecified laterality, sequela [S42.123S] Order(s):CT SHOULDER WO IVCON LEFT [[id number]] Order #: [id number] CT 3D POST PROCESSING [[id number]] Order #: [id number] FUTURE REFER TO P[facility] - PRE ANESTHESIA CONSULTATION [facility]INIC [[id number]] Order #: [id number]: [id number] FUTURE XR SHOULDER GENERAL 3V OR MORE AP/TRUE AP/OTHER RIGHT [[id number]] Order #: [id number] FUTURE Prescriptions as of 07/22/2023 - estradiol(VAGIFEM 25 MCG VAGINAL TAB) Insert one(1) tablet vaginally twice weekly. - IBUPROFEN 600 MG TAB 1 Tab ORAL EVERY 6 HOURS NEEDED - multivitamins w-minerals/lut (more content not included)... [facility] XR SHLDR >/=3V AP/JULIETA AP/OTH R LTon [...] HISTORY: pt sts chronic shoulder pain (accession [id number]), RT SHOULDER PAIN/REPLACED 14 MONTHS AGO (accession [id number]) CLINICAL INFORMATION ( PROVIDED BY ORDERING CLINICIAN) [...] with associated acromial fragmentation from advanced remodeling. Natural Resource Specialist: WILLIAM Transcribe Date/Time: Jul 20 2023 10:15P Dictated by : MARYANN SUAREZ MD This examination was interpreted and the report reviewed and electronically signed by: MARYANN SUAREZ MD on Jul 20 2023 10:17PM EST [id number] [facility] XR SHLDR >/=3V AP/JULIETA AP/OTH R RTon [...] HISTORY: pt sts chronic shoulder pain (accession [id number]), RT SHOULDER PAIN/REPLACED 14 MONTHS AGO (accession [id number]) CLINICAL INFORMATION ( PROVIDED BY ORDERING CLINICIAN) [...] with associated acromial fragmentation from advanced remodeling. Natural [facility] Specialist[facility] Transcribe Date/Time: Jul 20 2023 10:15P Dictated by : MARYANN SUAREZ MD This examination was interpreted and the report reviewed and electronically signed by: MARYANN SUAREZ MD on Jul 20 2023 10:17PM EST [id number] Normal [facility] XR SHOULDER GENERAL 3V OR MO RE AP/TRUE AP/OTHER RIGHTon 07-18-2023 [facility] INSULINon 02-08-2023 Insulin 17.0 uIU/mL Normal 2.6-24.9 [facility] Comment on above: Performed By: #### C BC #### [facility] [address] [place] [address] [address] Kashif Martinez OCC BLD IMMUNO SCREENon 01-23 OCCULT BLOOD Negative Normal NEGATIVE [facility] Comment on above: Performed By: #### O BSCRN #### [facility] [address] [place], [place] [address] Dr. Kashif Martinez UA RANDOM W/MICROSCOPICon BACTERIA TRACE Abnormal NONE SEEN [facility] Comment on above: Performed By: #### U AMIC #### [facility] [address] [place] [address] [address] Kashif Martinez Bilirubin Ql (U) Negative Normal NEGATIVE [facility] Comment on above: Performed By: #### U AMIC #### [facility] [address] [place] [address] [address] Kashif Martinez CAST NONE SEEN Normal NONE SEEN [facility] Comment on above: Performed By: #### U AMIC #### [facility] [address] [place] [address] [address] Kashif Martinez Clarity (U) CLEAR Normal CLEAR [facility] Comment on above: Performed By: #### U AMIC #### [facility] [address] [place] [address] Dr. Kashif Martinez Color (U) LT. YELLOW Normal YELLOW [facility] Comment on above: Performed By: #### U AMIC #### [facility] [address] [place] [address] [address] Kashif Martinez Crystals LM Nom (Urine sed) NONE SEEN Normal NONE SEEN [facility] Comment on above: Performed By: #### U AMIC #### [facility] [address] [place] [address] Dr. Kashif Martinez Epithelial cells LM Ql (Urine sed) FEW Abnormal NONE SEEN /RARE [facility] Comment on above: Performed By: #### U AMIC #### [facility] [address] [place] [address] Dr. Kashif Martinez Glucose Ql (U) Negative Normal NEGATIVE [facility] Comment on above: Performed By: #### U AMIC #### [facility] [address] [place] [address] [address] Kashif Martinez Hemoglobin Ql (U) Negative Normal NEGATIVE [facility] Comment on above: Performed By: #### U AMIC #### [facility] [address] [place] [address] Dr. Kashif Martinez Ketones Ql (U) Negative Normal NEGATIVE [facility] Comment on above: Performed By: #### U AMIC #### [facility] [address] [place] [address] [address] Kashif Martinez LEUKOCYTES TRACE Abnormal NEGATIVE [facility] Comment on above: Performed By: #### U AMIC #### [facility] [address] [place] [address] [address] Kashif Martinez MUCOUS NONE SEEN Normal NONE SEEN [facility] Comment on above: Performed By: #### U AMIC #### [facility] [address] [place] [address] [address] Kashif Martinez Nitrite Ql (U) Negative Normal NEGATIVE [facility] Comment on above: Performed By: #### U AMIC #### [facility] [address] [place] [address] Dr. Kashif Martinez pH (U) 6.0 [pH] Normal 5-9 [facility] Comment on above: Performed By: #### U AMIC #### [facility] [address] [place] [address] Dr. Kashif Martinez RBC 0-2 Normal 0-2 [facility] Comment on above: Performed By: #### U AMIC #### [facility] [address] [place] [address] [address] Kashif Martinez SPEC GRAVITY <=1.005 Abnormal 1.005-<=1.025 [facility] Comment on above: Performed By: #### U AMIC #### [facility] [address] [place] [address] Dr. Kashif Martinez UA PROTEIN Negative Normal NEGATIVE/ TRACE [facility] Comment on above: Performed By: #### U AMIC #### [facility] [address] [place] [address] Dr. Kashif Martinez Urobilinogen Qn (U) 0.2 {Harvinder'U}/dL Normal 0.2 - 1. 0 [facility] Comment on above: Performed By: #### U AMIC #### [facility] [address] [place] [address] Dr. Kashif Martinez WBC 0-2 Abnormal NONE SEEN [facility] Comment on above: Performed By: #### U AMIC #### [facility] [address] [place] [address] Dr. Kashif Martinez CBC AUTO DIFFon 02-07-2023 BASO # 0.0 103/ul Normal 0.0-0.1 [facility] Comment on above: Performed By: #### C BC #### [facility] [address] [place] [address] Dr. Kashif Martinez Basophils/100 WBC (Bld) 0.6 % Normal 0.2-2.0 [facility] Comment on above: Performed By: #### C BC #### [facility] [address] [place] [address] Dr. Kashif Martinez EO # 0.0 103/ul Normal 0.0-0.7 [facility] Comment on above: Performed By: #### C BC #### [facility] [address] [place] [address] Dr. Kashif Martinez Eosinophils/100 WBC (Bld) 0.6 % Critically low 0.9-7.0 [facility] Comment on above: Performed By: #### C BC #### [facility] [address] [place] [address] Dr. Kashif Martinez Erythrocyte distribution width (RBC) [Ratio] 18.1 % Critically high 11.0-15.0 [facility] Comment on above: Performed By: #### C BC #### [facility] [address] [place] [address] Dr. Kashif Martinez Hematocrit (Bld) [Volume fraction] 30.1 % Critically low 36.0-48.0 [facility] Comment on above: Performed By: #### C BC #### [facility] [address] [place] [address] Dr. Kashif Martinez Hemoglobin (Bld) [Mass/Vol] 8.6 g/dL Critically low 12.0-16.0 [facility] Comment on above: Performed By: #### C BC #### [facility] [address] [place] [address] Dr. Kashif aMrtinez IG # 0.02 10e3/ul Normal 0.00-0.03 [facility] Comment on above: Performed By: #### C BC #### [facility] [address] [place] [address] [address] Kashif Martinez IG % 0.3 % Normal 0.0-0.5 [facility] Comment on above: Performed By: #### C BC #### [facility] [address] [place] [address] [address] Kashif Martinez LYMPH # 1.4 103/ul Normal 1.2-3.8 [facility] Comment on above: Performed By: #### C BC #### [facility] [address] [place] [address] [address] Kashif Martinez Lymphocytes/100 WBC (Bld) 19.8 % Critically low 20.5-60.0 [facility] Comment on above: Performed By: #### C BC #### [facility] [address] [place] [address] Dr. Kashif Martinez MANUAL DIFF REQ NO Normal [facility] Comment on above: Performed By: #### C BC #### [facility] [address] [place] [address] Dr. Kashif Martniez MCH (RBC) [Entitic mass] 19.2 pg Critically low 26.7-34.0 [facility] Comment on above: Performed By: #### C BC #### [facility] [address] [place] [address] Dr. Kashif Martinez MCHC (RBC) [Mass/Vol] 28.6 g/dL Critically low 29.9-35.2 [facility] Comment on above: Result Comment: Slig ht Hypochromosia Seen Performed By: #### C BC #### [facility] [address] [place] [address] Dr. Kashif Martinez MCV (RBC) [Entitic vol] 67.3 fL Critically low 81.0-99.0 [facility] Comment on above: Performed By: #### C BC #### [facility] [address] [place] [address] Dr. Kashif Martinez MONO # 0.8 103/ul Normal 0.3-0.8 [facility] Comment on above: Performed By: #### C BC #### [facility] [address] [address] [address] Kashif Martinez Monocytes/100 WBC (Bld) 11.1 % Normal 1.7-12.0 [facility] Comment on above: Performed By: #### C BC #### [facility] [address] [place] [address] Dr. Kashif Martinez NEUT # 4.7 103/ul Normal 1.4-6.5 [facility] Comment on above: Performed By: #### C BC #### [facility] [address] [place] [address] Dr. Kashif Martinez Neutrophils/100 WBC (Bld) 67.6 % Normal 43.0-75.0 [facility] Comment on above: Performed By: #### C BC #### [facility] [address] [place] [address] Dr. Kashif Martinez Platelet mean volume (Bld) [Entitic vol] 8.5 fL Critically low 9.5-13.5 [facility] Comment on above: Performed By: #### C BC #### [facility] [address] [place] [address] Dr. Kashif Martinez PLT 409 103/ul Normal 150-450 [facility] Comment on above: Performed By: #### C BC #### [facility] [address] [place] [address] Dr. Kashif Martinez RBC 4.47 106/ul Normal 4.20-5.40 [facility] Comment on above: Performed By: #### C BC #### [facility] [address] [place] [address] Dr. Kashif Martinez WBC 6.9 103/ul Normal 4.0-11.0 [facility] Comment on above: Performed By: #### C BC #### [facility] [address] [place] [address] Dr. Kashif Martinez FREE T3on 02-07-2023 FREE T3 3.47 pg/mlL Normal 2.18-3.98 [facility] Comment on above: Performed By: #### C MP, TSH, T7, LIPID #### [facility] [address] [place] [address] Dr. Kashif Martinez GLYCOHEMOGLOBIN A1Con 2022 ADA RECOMMENDATION SEE BELOW Normal [facility] Comment on above: Result Comment: ADA RECOMMENDED LIMIT 4.0 - 6.0 ADA THERAPEUTIC TARGET < 7.0 ACTION SUGGESTED > 7.0 Performed By: #### C BC #### [facility] [address] [address] [address] Kashif Martinez Glucose [Mass/Vol] 103 mg/dL Normal [facility] Comment on above: Performed By: #### C BC #### [facility] [address] [place] [address] Dr. Kashif Martinez HbA1c (Bld) [Mass fraction] 5.2 % Normal 4.5-6.2 [facility] Comment on above: Performed By: #### C BC #### [facility] [address] [place] [address] Dr. Kashif Martinez IRONon 02-07-2023 Iron [Mass/Vol] 12.0 ug/dL Critically low 50.0-170.[address] [facility] Comment on above: Performed By: #### V ITAD, IRON #### [facility] [address] [place] [address] Dr. Kashif Martinez LIPID PROFILEon 02-07-2023 CHOL-HDL RATIO NORM SEE BELOW Normal [facility] Comment on above: Result Comment: 3.3 - 4.4 LOW RISK 4.4 - 7.1 AVERAGE RISK 7.1 - 11.0 MODERATE RISK >11.0 HIGH RISK Performed By: #### C MP, TSH, T7, LIPID #### [facility] [address] [place] [address] Dr. Kashif Martinez Cholesterol [Mass/Vol] 180 mg/dL Normal <=200 [facility] Comment on above: Performed By: #### C MP, TSH, T7, LIPID #### [facility] [address] [place] [address] Dr. Kashif Martinez Cholesterol in HDL [Mass/Vol] 64 mg/dL Critically high 40-60 [facility] Comment on above: Performed By: #### C MP, TSH, T7, LIPID #### [facility] [address] [address] [address] Kashif Martinez Cholesterol in LDL [Mass/Vol] 100.2 mg/dL Normal [facility] Comment on above: Performed By: #### C MP, TSH, T7, LIPID #### [facility] [address] [address] [address] Kashif Martinez Cholesterol.total/Ch olesterol in HDL [Mass ratio] 2.8 {ratio} Normal [facility] Comment on above: Performed By: #### C MP, TSH, T7, LIPID #### [facility] [address] [address] [address] Kashif Martinez HDL NORMAL > or = 60 mg/dl - LO W CARDIOVASCULAR RISK <40 mg/dl - HIGH CARDIOVASCULAR RISK Normal [facility] Comment on above: Performed By: #### C MP, TSH, T7, LIPID #### [facility] [address] [address] [address] Kashif Martinez LDL CALC NORMAL SEE BELOW Normal [facility] Comment on above: Result Comment: <100 mg/dl OPTIMAL 100 - 129 mg/dl NEAR OR ABOVE OPTIMAL 130 - 159 mg/dl BORDERLINE HIGH 160 - 189 mg/dl HIGH >190 mg/dl VERY HIGH Performed By: #### C MP, TSH, T7, LIPID #### [facility] [address] [address] [address] Kashif Martinez Triglyceride [Mass/Vol] 79 mg/dL Normal <=150 [facility] Comment on above: Performed By: #### C MP, TSH, T7, LIPID #### [facility] [address] [address] [address] Kashif Martinez VLDL CALC 15.8 mg/dL Normal [facility] Comment on above: Performed By: #### C MP, TSH, T7, LIPID #### [facility] [address] [address] [address] Kashif Martinez PROF 14(COMP METB)on 023 Albumin [Mass/Vol] 3.8 g/dL Normal 3.4-5.[address] [facility] Comment on above: Performed By: #### C BC #### [facility] [address] [place] [address] Dr. Kashif Martinez Albumin/Globulin [Mass ratio] 0.9 {ratio} Normal [facility] Comment on above: Performed By: #### C BC #### [facility] [address] [place] [address] Dr. Kashif Martinez ALP [Catalytic activity/Vol] 100 U/L Normal 46-116 [facility] Comment on above: Performed By: #### C BC #### [facility] [address] [place] [address] Dr. Kashif Martinez ALT [Catalytic activity/Vol] 30 U/L Normal 14-59 [facility] Comment on above: Performed By: #### C BC #### [facility] [address] [place] [address] Dr. Kashif Martinez Anion gap [Moles/Vol] 14.5 mmol/L Normal [facility] Comment on above: Performed By: #### C BC #### [facility] [address] [place] [address] Dr. Kashif Martinez AST [Catalytic activity/Vol] 22 U/L Normal 15-37 [facility] Comment on above: Performed By: #### C BC #### [facility] [address] [place] [address] Dr. Kashif Martinez Bilirubin [Mass/Vol] 0.4 mg/dL Normal 0.2-1.0 [facility] Comment on above: Performed By: #### C BC #### [facility] [address] [place] [address] Dr. Kashif Martinez Calcium [Mass/Vol] 9.0 mg/dL Normal 8.5-10.1 [facility] Comment on above: Performed By: #### C BC #### [facility] [address] [place] [address] Dr. Kashif Martinez Chloride [Moles/Vol] 104 mmol/L Normal 98-107 [facility] Comment on above: Performed By: #### C BC #### [facility] [address] [address] [address] Kashif Martinez CO2 [Moles/Vol] 26.7 mmol/L Normal 21.0-32.0 [facility] Comment on above: Performed By: #### C BC #### [facility] [address] [address] [address] Kashif Martinez Creatinine [Mass/Vol] 0.75 mg/dL Normal 0.55-1.02 [facility] Comment on above: Performed By: #### C BC #### [facility] [address] [address] [address] Kashif Martinez EGFR-AF ENGLISH >60 Normal >=60 [facility] Comment on above: Performed By: #### C BC #### [facility] [address] [place] [address] Dr. Kashif Martinez EGFR-NON AF ENGLISH >60 Normal >=60 [facility] Comment on above: Performed By: #### C BC #### [facility] [address] [place] [address] Dr. Kashif Martinez Globulin (S) [Mass/Vol] 4.1 g/dL Normal [facility] Comment on above: Performed By: #### C BC #### [facility] [address] [place] [address] Dr. Kashif Martinez Glucose [Mass/Vol] 104 mg/dL Normal 74-106 [facility] Comment on above: Performed By: #### C BC #### [facility] [address] [address] [address] Kashif Martinez Potassium [Moles/Vol] 4.2 mmol/L Normal 3.5-5.1 [facility] Comment on above: Performed By: #### C BC #### [facility] [address] [place] [address] Dr. Kashif Martinez Protein [Mass/Vol] 7.9 g/dL Normal 6.4-8.2 [facility] Comment on above: Performed By: #### C BC #### [facility] [address] [place] [address] Dr. Kashif Martinez Sodium [Moles/Vol] 141 mmol/L Normal 136-145 [facility] Comment on above: Performed By: #### C BC #### [facility] [address] [place] [address] Dr. Kashif Martinez Urea nitrogen [Mass/Vol] 18.0 mg/dL Normal 7.0-18.0 [facility] Comment on above: Performed By: #### C BC #### [facility] [address] [place] [address] Dr. Kashif Martinez Urea nitrogen/Creatinine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 S72.141D Displ intertroch fx r femur, subs for clos fx w routn heal I10 History: [place] Comments: , , , Ordering Provider - [...] spine Electronically signed by:Wolfgang Ibarra. Transcribed by: [email or web address], User Resident: Electronically Signed by: WOLFGANG IBARRA @ 08/24/2018 02:16 PM Normal [facility] Comment on above: Order Comment: No: D o not add to previous draw HIP RIGHT 1 OR 2 VWS WITH PE LVISon 07-26-2018 HIP RIGHT 1 OR 2 VWS WITH PELVIS [facility] Department of Radiology [address] [place] [id number] ======== Patient Name: QING FISCHER : 1945 Sex: F Age: Race: White Pt. Location: Patient Status: Ordered Date: 07/26/2018 9:40:00 AM Completed Date: 07/26/2018 09:43 AM Requesting Provider: LAURIE TOWNSEND Attending Provider: Report Copy To: Signs & Symptoms: S72.141D Displ intertroch fx r femur, subs for clos fx w routn heal I10 History: [place] Comments: , Views (X-RAY, HIP): Radiologic Protocol [...] alignment Electronically signed by:Wolfgang Ibarra. Transcribed by: [email or web address], User Resident: Electronically Signed by: WOLFGANG IBARRA @ 07/26/2018 01:34 PM Normal [facility] Comment on above: Order Comment: No: D o not add to previous draw BASIC METABOLIC PANELon 10-2 Calcium mass conc 8.3 mg/dL Low 8.6-10.3 [facility] Comment on above: Order Comment: No: D o not add to previous draw Performed By: #### 0 0071 #### [facility] [address] [place] [address], [facility] Chloride molar conc 103 mmol/L Normal 98-107 [facility] Comment on above: Order Comment: No: D o not add to previous draw Performed By: #### 0 0071 #### [facility] [address] [place] [address], [place] CO2 molar conc 26 mmol/L Normal 21-31 [facility] Comment on above: Order Comment: No: D o not add to previous draw Performed By: #### 0 0071 #### [facility] [address] [place] [address], [place] Creatinine mass conc 0.56 mg/dL Low 0.60-1.[address] [facility] Comment on above: Order Comment: No: D o not add to previous draw Performed By: #### 0 0071 #### [facility] [address] [place] [address], [place] GFR/1.73 sq M predicted among blacks MDRD vol rate/area (S/P/Bld) mL/min/{1.73_m2} Normal >60 [facility] Comment on above: Order Comment: No: D o not add to previous draw Result Comment: Calc ulation may not be valid for patients over 70 years Performed By: #### 0 0071 #### [facility] [address] [place] [address], [facility] GFR/1.73 sq M predicted among non-blacks MDRD vol rate/area (S/P/Bld) mL/min/{1.73_m2} Normal >60 [facility] Comment on above: Order Comment: No: D o not add to previous draw Result Comment: Calc ulation may not be valid for patients over 70 years Performed By: #### 0 0071 #### [facility] [address] [place] [address], [facility] Glucose mass conc 114 mg/dL High 70-100 [facility] Comment on above: Order Comment: No: D o not add to previous draw Performed By: #### 0 0071 #### [facility] [address] [place] [address], [facility] Potassium molar conc 4.0 mmol/L Normal 3.5-5.[address] [facility] Comment on above: Order Comment: No: D o not add to previous draw Performed By: #### 0 0071 #### [facility] [address] [place] [address], [facility] Sodium molar conc 136 mmol/L Normal 136-145 [facility] Comment on above: Order Comment: No: D o not add to previous draw Performed By: #### 0 0071 #### [facility] [address] [place] [address], [facility] Urea nitrogen mass conc 9 mg/dL Normal 7-[address] [facility] Comment on above: Order Comment: No: D o not add to previous draw Performed By: #### 0 0071 #### [facility] [address] [place] [address], [facility] CBC COMPLETE BLOOD COUNTon Erythrocyte distribution width Ratio (RBC) 13.8 % Normal 11.5-15.[address] [facility] Comment on above: Order Comment: No: D o not add to previous draw Performed By: #### 5 [id number] #### [facility] [address] [place] [address], [facility] Hematocrit Volume Fraction (Bld) 30.5 % Low 36.0-45.[address] [facility] Comment on above: Order Comment: No: D o not add to previous draw Performed By: #### 5 [id number] #### [facility] [address] [place] [address], [facility] Hemoglobin mass conc (Bld) 10.1 g/dL Low 12.0-15.[address] [facility] Comment on above: Order Comment: No: D o not add to previous draw Performed By: #### 5 [id number] #### [facility] [address] [place] [address], [facility] MCH Entitic mass (RBC) 29.9 pg Normal 27.0-33.[address] [facility] Comment on above: Order Comment: No: D o not add to previous draw Performed By: #### 5 [id number] #### [facility] [address] [place] [address], [facility] MCHC mass conc (RBC) 33.1 g/dL Normal 32.0-35.[address] [facility] Comment on above: Order Comment: No: D o not add to previous draw Performed By: #### 5 [id number] #### [facility] [address] [place] [address], [facility] MCV Entitic volume (RBC) 90.2 fL Normal 82.0-98.[address] [facility] Comment on above: Order Comment: No: D o not add to previous draw Performed By: #### 5 [id number] #### [facility] [address] [place] [address], [facility] Nucleated RBC/100 WBC Ratio (Bld) 0 % Normal 0-[address] [facility] Comment on above: Order Comment: No: D o not add to previous draw Performed By: #### 5 [id number] #### [facility] [address] [facility] [address] PLAT CNT 180 10*3/uL Normal 150-400 The [facility] Comment on above: Order Comment: No: D o not add to previous draw Performed By: #### 5 [id number] #### [facility] [address] RBC #/vol (Bld) 3.38 10*6/uL Low 3.80-5.00 [facility] Comment on above: Order Comment: No: D o not add to previous draw Performed By: #### 5 [id number] #### [facility] [address] [facility]. [address] WBC #/vol (Bld) 8.43 10*3/uL Normal 4.00-10.60 [facility] Comment on above: Order Comment: No: D o not add to previous draw Performed By: #### 5 [id number] #### [facility] [address] Operative Reporton 10-20-201 8 Operative Report MR#: [id number] [facility] Pt. Name: Qing Fischer Room #: [id number] Discharge Date: Birthdate: 1945 OPERATIVE REPORT DATE [...] Nunez M.D. Date Trans: 07/13/2018 11:30 P/mmo [id number] cc: Nona Mcknight M.D. [address] [place] [address] [address] [facility] [facility] BASIC METABOLIC PANELon - Calcium mass conc 9.2 mg/dL Normal 8.6-10.3 [facility] Comment on above: Order Comment: No: D o not add to previous draw Performed By: #### 0 0071 #### [facility] [address] [place] [address], [place] Chloride molar conc 104 mmol/L Normal 98-107 [facility] Comment on above: Order Comment: No: D o not add to previous draw Performed By: #### 0 0071 #### [facility] [address] [place] [address], [place] CO2 molar conc 28 mmol/L Normal 21-31 [facility] Comment on above: Order Comment: No: D o not add to previous draw Performed By: #### 0 0071 #### [facility] [address] [place] [address], [place] Creatinine mass conc 0.66 mg/dL Normal 0.60-1.[address] [facility] Comment on above: Order Comment: No: D o not add to previous draw Performed By: #### 0 0071 #### [facility] [address] [place] [address], [place] GFR/1.73 sq M predicted among blacks MDRD vol rate/area (S/P/Bld) mL/min/{1.73_m2} Normal >60 [facility] Comment on above: Order Comment: No: D o not add to previous draw Result Comment: Calc ulation may not be valid for patients over 70 years Performed By: #### 0 0071 #### [facility] [address] [place] [address], [place] GFR/1.73 sq M predicted among non-blacks MDRD vol rate/area (S/P/Bld) mL/min/{1.73_m2} Normal >60 [facility] Comment on above: Order Comment: No: D o not add to previous draw Result Comment: Calc ulation may not be valid for patients over 70 years Performed By: #### 0 0071 #### [facility] [address] [place] [address], [facility] Glucose mass conc 117 mg/dL High 70-100 [facility] Comment on above: Order Comment: No: D o not add to previous draw Performed By: #### 0 0071 #### [facility] [address] [place] [address], [facility] Potassium molar conc 4.1 mmol/L Normal 3.5-5.[address] [facility] Comment on above: Order Comment: No: D o not add to previous draw Performed By: #### 0 0071 #### [facility] [address] [place] [address], [facility] Sodium molar conc 138 mmol/L Normal 136-145 [facility] Comment on above: Order Comment: No: D o not add to previous draw Performed By: #### 0 0071 #### [facility] [address] [place] [address], [facility] Urea nitrogen mass conc 16 mg/dL Normal 7-[address] [facility] Comment on above: Order Comment: No: D o not add to previous draw Performed By: #### 0 0071 #### [facility] [address] [place] [address], [facility] CBC COMPLETE BLOOD COUNTon Erythrocyte distribution width Ratio (RBC) 13.9 % Normal 11.5-15.[address] [facility] Comment on above: Order Comment: No: D o not add to previous draw Performed By: #### 5 0608 #### [facility] [address] Hematocrit Volume Fraction (Bld) 41.6 % Normal 36.0-45.[address] [facility] Comment on above: Order Comment: No: D o not add to previous draw Performed By: #### 5 0608 #### [facility] [address] [place] [id number], [facility] Hemoglobin mass conc (Bld) 13.3 g/dL Normal 12.0-15.[address] [facility] Comment on above: Order Comment: No: D o not add to previous draw Performed By: #### 5 0608 #### [facility] [address] [place] [address], [facility] MCH Entitic mass (RBC) 29.0 pg Normal 27.0-33.[address] [facility] Comment on above: Order Comment: No: D o not add to previous draw Performed By: #### 5 0608 #### [facility] [address] MCHC mass conc (RBC) 32.0 g/dL Normal 32.0-35.[address] [facility] Comment on above: Order Comment: No: D o not add to previous draw Performed By: #### 5 0608 #### [facility] [address] [place] [address], [facility] MCV Entitic volume (RBC) 90.8 fL Normal 82.0-98.[address] [facility] Comment on above: Order Comment: No: D o not add to previous draw Performed By: #### 5 0608 #### [facility] [address] [place] [address], [facility] Nucleated RBC/100 WBC Ratio (Bld) 0 % Normal 0-[address] [facility] Comment on above: Order Comment: No: D o not add to previous draw Performed By: #### 5 0608 #### [facility] [address] [place] [address], [facility] PLAT CNT 189 10*3/uL Normal 150-400 The [facility] Comment on above: Order Comment: No: D o not add to previous draw Performed By: #### 5 0608 #### [facility] [address] [facility] [place] [address], [facility] RBC #/vol (Bld) 4.58 10*6/uL Normal 3.80-5.00 [facility] Comment on above: Order Comment: No: D o not add to previous draw Performed By: #### 5 0608 #### [facility] [address] [facility] [place] [address], [facility] WBC #/vol (Bld) 9.00 10*3/uL Normal 4.00-10.60 [facility] Comment on above: Order Comment: No: D o not add to previous draw Performed By: #### 5 0608 #### [facility] [address] LOWER EXTREMITY WO CONTRA ST RIGHTon 07-13-2018 CT LOWER EXTREMITY WO CONTRAST RIGHT [facility] Department of Radiology [address] [place] [id number] ======== Patient Name: QING FISCHER : 1945 Sex: F Age: Race: White Pt. Location: [id number] Patient Status: I Ordered Date: 07/13/2018 7:15:00 [...] definitive. Electronically signed by:Wolfgang Ibarra. Transcribed by: [email or web address], User Resident: Electronically Signed by: WOLFGANG IBARRA @ 07/13/2018 10:26 AM Normal [facility] Comment on above: Order Comment: R/O F ractures, R hip for basicervical fx HIP RIGHT 1 OR 2 VWS WITH PE LVISon 07-13-2018 HIP RIGHT 1 OR 2 VWS WITH PELVIS [facility] Department of Radiology [address] [place] [id number] ======== Patient Name: QING FISCHER : 1945 Sex: F Age: Race: White Pt. Location: [id number] Patient Status: I Ordered Date: 07/13/2018 12:55:00 PM Completed Date: 07/13/2018 06:56 PM Requesting Provider: ABIODUN BAHENA Attending Provider: ABIODUN BAEHNA Report Copy To: Signs & Symptoms: Right [...] findings. Electronically signed by:Anjel Fitzgerald. Transcribed by: [email or web address], User Resident: ZACARIAS LECHUGA Electronically Signed by: ANJEL FITZGERALD @ 07/14/2018 08:57 PM I personally read this/these film(s) with this resident Normal [facility] Comment on above: Order Comment: Right hip VHS with POC GLUCOSE LABon 07-13-2018 Glucose mass conc 128 mg/dL High 70-100 [facility] Comment on above: Performed By: #### 8 [id number] #### [facility] [address] [facility]. [address] PROTHROMBIN TIMEon 8 INR Coag RelTime (PPP) 1.03 {INR} Normal 0.91-1.16 [facility] Comment on above: Order Comment: No: [...] 1995;[id number]. Performed By: #### 5 6101 #### [facility] [address] [facility]. [address] Prothrombin time (PT) Coag time (PPP) 13.5 s Normal 12.3-14.8 [facility] Comment on above: Order Comment: No: D o not add to previous draw Result Comment: ALL RESULTS MUST BE INTERPRETED WITH RESPECT TO BLOOD DRAWING ARTIFACT OR DILUTION ERROR OF ANTICOAGULANT AT THE TIME OF SAMPLING. Performed By: #### 5 [id number] #### [facility] [address] RBC'S 2 UNITSon 07-13-2018 CROSSMATCH INTERP 1 COMP Normal [facility] Comment on above: Order Comment: Other Performed By: #### 8 [id number] #### [facility] [address] [place] [address], [place] CROSSMATCH INTERP 2 COMP Normal [facility] Comment on above: Order Comment: Other Performed By: #### 8 6002 #### [facility] [address] [place] [address], [place] Protein mass conc 336 g/dL Normal [facility] Comment on above: Order Comment: Other Performed By: #### 8 [id number] #### [facility] [address] [place] [address], [place] Protein mass conc RE Normal [facility] Comment on above: Order Comment: Other Result Comment: Resu lt changed by IF on 07/16/2018 23:15. The previous value was XM. Performed By: #### 8 [id number] #### [facility] [address] [place] [address], [facility] UNIT ABO 1 O Normal [facility] Comment on above: Order Comment: Other Performed By: #### 8 [id number] #### [facility] [address] [place] [address], [facility] UNIT ABO 2 O Normal [facility] Comment on above: Order Comment: Other Performed By: #### 8 [id number] #### [facility] [address] [place] [address], [facility] UNIT ID 1 [id number] Normal The [facility] Comment on above: Order Comment: Other Performed By: #### 8 [id number] #### [facility] [address] [place] [address], [place] UNIT ID 2 [id number] Normal The [facility] Comment on above: Order Comment: Other Performed By: #### 8 [id number] #### [facility] [address] [place] [address], [place] UNIT RH 1 Positive Normal [facility] Comment on above: Order Comment: Other Performed By: #### 8 [id number] #### [facility] [address] [place] [address], [facility] UNIT RH 2 Positive Normal [facility] Comment on above: Order Comment: Other Performed By: #### 8 [id number] #### [facility] [address] [place] [address], [facility] TYPE AND SCREENon 07-13-2018 ABO INTERPRETATION O Normal [facility] Comment on above: Performed By: #### 6 2586 #### [facility] [address] [place] [address], [facility] RH INTERPRETATION Positive Normal [facility] Comment on above: Performed By: #### 6 [id number] #### [facility] [address] [place] [address], [facility] Vital Signs Date Time Vital Sign Value Performing Clinician Betty burden 01-11-2024 14:39-0400 Body height 152.4 cm Wolfgang Chou PA-C Work Phone: [facility] 01-11-2024 14:39-0400 Body weight 60.78 kg Wolfgang Chou PA-C Work Phone: [facility] 07-18-2023 11:37-0400 Body height 152.4 cm Tony Combs MD Work Phone: [facility] 07-18-2023 11:37-0400 Body weight 62.14 kg Tony Combs MD Work Phone: [facility] 04-06-2019 12:11-0400 Body Temperature 98.1 [degF] [facility] 04-06-2019 12:11-0400 BP Diastolic 71 mm[Hg] [facility] 04-06-2019 12:11-0400 BP Systolic 148 mm[Hg] [facility] 04-06-2019 12:11-0400 Pulse (Heart Rate) 68 /min [facility] 04-06-2019 12:11-0400 Pulse Oximetry 98 % Shell Hawkins [facility] 04-06-2019 11:52-0400 Respiratory Rate 18 /min Shell Hawkins [facility] 04-06-2019 10:43-0400 Body weight 65.86 kg Shell Hawkins [facility] Encounters Encounter Date Encounter Type Care Provider Facility Start: 06-04-2025 End: 06-04-2025 ambulatory Nona Mcknight [facility] Work Phone: Start: 06-04-2025 End: 06-04-2025 Departed Referred Nona Sutton MD -[facility] Start: 07-23-2024 End: 07-23-2024 ambulatory Lonny VASQUZE Facility:[facility] Start: 07-23-2024 End: 07-23-2024 Patient encounter procedure Lonny VASQUEZ [facility] [place] Start: 06-28-2024 [facility] Start: 04-25-2024 End: 04-25-2024 ambulatory NONA MCKNIGHT Facility:[facility] Start: 04-25-2024 End: 04-25-2024 Patient encounter procedure Wolfgang Chou PA-C Work Phone: Orthopaedics Comment on above: S/P reverse total sh oulder arthroplasty, left (Primary Dx) Start: 04-25-2024 End: 04-25-2024 Subsequent hospital visit by physician [facility] Work Phone: Radiology Comment on above: S/P reverse total sh oulder arthroplasty, left [Z96.612] Start: 01-11-2024 End: 01-11-2024 ambulatory NONA MCKNIGHT Facility:[facility] Start: 01-11-2024 End: 01-11-2024 Patient encounter procedure Wolfgang Chou PA-C Work Phone: Orthopaedics Comment on above: S/P reverse total sh oulder arthroplasty, left (Primary Dx) Start: 01-11-2024 ambulatory NONA MCKNIGHT Facility: [facility] Start: 01-11-2024 End: 01-11-2024 Subsequent hospital visit by physician [facility] Comment on above: S/P reverse total sh oulder arthroplasty, left [Z96.612] Start: 12-26-2023 End: 12-26-2023 ambulatory Romina Hallgren OTR/L Work Phone: [facility] Comment on above: Decreased range of m otion of left shoulder (Primary Dx); S/P reverse total shoulder arthroplasty, left; Nontraumatic complete tear of rotator cuff, left; Rotator cuff tear arthropathy of left shoulder Start: 12-19-2023 End: 12-19-2023 ambulatory Romina Hallgren OTR/L Work Phone: [facility] Comment on above: Decreased range of m otion of left shoulder (Primary Dx); S/P reverse total shoulder arthroplasty, left; Nontraumatic complete tear of rotator cuff, left; Rotator cuff tear arthropathy of left shoulder Start: 12-12-2023 End: 12-12-2023 ambulatory Romina Hallgren OTR/L Work Phone: [facility] Comment on above: Decreased range of m otion of left shoulder (Primary Dx); S/P reverse total shoulder arthroplasty, left; Nontraumatic complete tear of rotator cuff, left; Rotator cuff tear arthropathy of left shoulder Start: 12-05-2023 End: 12-05-2023 ambulatory Romina Hallgren OTR/L Work Phone: [facility] Comment on above: Decreased range of m otion of left shoulder (Primary Dx); S/P reverse total shoulder arthroplasty, left; Nontraumatic complete tear of rotator cuff, left; Rotator cuff tear arthropathy of left shoulder Start: 11-28-2023 End: 11-28-2023 ambulatory NONA MCKNIGHT Facility:[facility] Start: 11-21-2023 End: 11-21-2023 ambulatory Romina Hallgren OTR/L Work Phone: [facility] Comment on above: Decreased range of m otion of left shoulder (Primary Dx); S/P reverse total shoulder arthroplasty, left; Nontraumatic complete tear of rotator cuff, left; Rotator cuff tear arthropathy of left shoulder Start: 11-14-2023 End: 11-14-2023 ambulatory Romina Hallgren OTR/L Work Phone: [facility] Comment on above: Decreased range [...] Start: 11-09-2023 End: 11-09-2023 ambulatory NONA MCKNIGHT Facility:[facility] Start: 11-09-2023 End: 11-09-2023 Subsequent hospital visit by physician Meagan [facility] Work Phone: Radiology Comment on above: S/P reverse total sh oulder arthroplasty, left [Z96.612] Start: 11-06-2023 End: 11-06-2023 ambulatory Rominaángel Thompsongren OTR/L Work Phone: [facility] Comment on above: Decreased range of m otion of left shoulder (Primary Dx); S/P reverse total shoulder arthroplasty, left; Nontraumatic complete tear of rotator cuff, left; Rotator cuff tear arthropathy of left shoulder Start: 10-30-2023 End: 10-30-2023 ambulatory TNOY COMBS Facility:[facility] Start: 10-26-2023 End: 10-26-2023 ambulatory TONY COMBS Facility:[facility] Start: 10-24-2023 End: 10-24-2023 ambulatory WOLFGANG CHOU Facility:[facility] Start: 10-16-2023 End: 10-16-2023 ambulatory WOLFGANG CHOU Facility:[facility] Start: 10-12-2023 End: 10-12-2023 ambulatory WOLFGANG CHOU Facility:[facility] Start: 10-02-2023 End: 10-02-2023 ambulatory NONA MCKNIGHT Facility:[facility] Start: 09-29-2023 End: 09-30-2023 ambulatory WOLFGANG CHOU Facility:[facility] Start: 09-27-2023 End: 09-27-2023 ambulatory Nilam Garnica [facility] Start: 09-26-2023 ambulatory Nilam Bairddesmond [facility]: [facility] Start: 09-15-2023 End: 09-15-2023 ambulatory TONY COMBS Facility:[facility] Start: 09-12-2023 Orders Only Tony mosley MD Work Phone: Orthopaedics Comment on above: Closed displaced fra cture of acromial process, unspecified laterality, sequela (Primary Dx); Status post reverse arthroplasty of left shoulder Start: 09-11-2023 End: 09-12-2023 ambulatory TONY COMBS Facility:[facility] Start: 09-07-2023 Encounter for other preprocedural examination NONA MCKNIGHT [facility] Start: 09-07-2023 End: 09-07-2023 ambulatory KRISTI BANUELOSSFORD Facility:[facility] Start: 08-29-2023 End: 08-29-2023 ambulatory TONY COMBS Facility:[facility] Start: 08-29-2023 End: 08-29-2023 Patient encounter procedure Tony Combs MD Work Phone: Orthopaedics Comment on above: Rotator cuff tear ar thropathy of left shoulder (Primary Dx); Closed displaced fracture of acromial process, unspecified laterality, sequela; Nontraumatic complete tear of rotator cuff, left; Injury of tendon of long head of biceps, left, initial encounter; Contracture of shoulder, left Start: 08-01-2023 ambulatory TONY COMBS [facility] y:[facility] Start: 07-18-2023 End: 07-18-2023 ambulatory TONY COMBS Facility:[facility] Start: 07-18-2023 End: 07-18-2023 Patient encounter [...] 07-18-2023 Subsequent hospital visit by physician [facility] Comment on above: Chronic right should er pain [M25.511, G89.29] Start: 02-08-2023 End: 02-09-[address] NONA MCKNIHGT . Facility:[facility] Start: 02-07-2023 End: 02-08-[address] NONA MCKNIGHT . Facility:[facility] Start: 10-25-2022 End: 10-26-[address] PRABHJOT ANDERSON Facility:[facility] Start: 10-18-2022 End: 10-19-[address] DOCTOR GARCIA Facility:[facility] Start: 03-03-2022 End: 03-04-[address] NONA MCKNIGHT . Facility: Start: 10-20-2020 End: 10-20-2020 Orders Only Ministerio Gross Work Phone: [facility] Start: 04-06-2019 End: 04-06-2019 Emergency department patient visit [facility] Start: 04-06-2019 End: 04-06-2019 Emergency department patient visit Shell Hawkins Work Phone: [facility] Emergency Department Comment on above: Acute non-recurrent frontal sinusitis (Primary Dx) Start: 11-01-2018 End: 11-02-2018 Patient encounter procedure LAURIE TOWNSEND Facility:[facility] Start: 10-01-2018 End: 10-02-2018 Patient encounter procedure LAURIE TOWNSEND Facility:[facility] Start: 08-24-2018 End: 08-25-2018 Patient encounter procedure LAURIE TOWNSEND Facility:[facility] Start: 07-26-2018 End: 07-27-2018 Patient encounter procedure LAURIE TOWNSEND Facility:[facility] Start: 07-13-2018 End: 07-19-2018 Evaluation and management of inpatient NONA MCKNIGHT Facility:[facility] Procedures Date Procedure Procedure Detail Performing [...] Speci men Type: BLOOD SPECIMEN Ordering Facility: [facility] Address: [address] [place] [address] Performed By: #### T [id number] #### [facility] CLIA [id number] [address] Start: 04-06-2019 12 lead ECG Shell [...] above: Performed By: #### 6 [id number] #### [facility] [address] [facility] [place] [address], [facility] Start: 07-13-2018 INSERTION OF INT FIX INTO R UP FEMUR, OPEN APPROACH ABIODUN EBRAHEIM Start: 03-22-2007 Colonoscopy Lonny MANCUSO Arthroplasty of knee Lonny VASQUEZ Closed fracture of h ip (disorder) Lonny VASQUEZ Elbow fracture - héctor sed (disorder) Lonny VASQUEZ Hysterectomy Lonny VASQUEZ Partial shoulder replacement Lonny VASQUEZ Plan of Treatment Date Care Activity Detail Author Start: 09-12-2026 Diabetes Screening Diabetes [facility] Start: 06-04-2025 Urine culture [facility] Start: 06-04-2025 [facility] Start: 06-04-2025 Bacteria identified in Urine by Culture Urine Culture [facility] Start: 04-27-2025 Diabetes Screening [facility] Start: 10-31-2024 End: 10-31-2024 Patient encounter procedure 10/31/2024 1:40 PM EST Office Visit Orthopaedics [id number] [place], [place] [id number] Wolfgang Chou PA-C [id number] [place], [place] [id number] 6 Month Follow Up - left shoulder pain Orthopaedics Comment on above: 6 Month Follow Up - left shoulder pain Start: 05-26-2024 Influenza vaccination Influenza Vacc ine (#1) [facility] Start: 10-27-2023 Covid-19 Vaccine ( season) Covid-19 Vaccine ( season) [facility] Start: 09-25-2023 Advance Directive Discussion Advance Directive Discussion [facility] Start: 09-25-2023 Behavioral Health Screening Behavioral Health Screening [facility] Start: 09-25-2023 [facility] Start: 09-25-2022 Advance Directive Discussion Advance Directive Discussion [facility] Start: 09-25-2022 Depression Assessment [facility] Start: 12-26-2010 Diabetes Screening Diabetes Screenin g [facility] Start: 2008 Bone Density Screening Bone Density Screening [facility] Start: 2008 Screening for osteoporosis Bone Density Screening [facility] Start: 2003 RSV Vaccine (1 - 1-d ose 60+ series) RSV Vaccine (1 - 1-dose 60+ series) [facility] Start: 1993 Shingrix Vaccine (1 of 2) Shingrix Vaccine (1 of 2) [facility] Start: 1962 Urine microalbumin profile DTaP,Tdap,Td Vaccine (1 - Tdap) [facility] Start: 1961 Annual PCP Team Order Entry yadi Disease Visit Annual PCP Team Chronic Disease Visit [facility] Start: 1961 Anxiety Screening Anxiety Screening [facility] Start: 1961 Depression Screening Depression Scre ening [facility] End: 08-16-2024 CT 3D POST PROCESSING CT 3D POST PROCESSING Radiology Routine Rotator cuff tear arthropathy of left shoulder 1 Occurrences starting 07/18/2023 until 08/16/2024 [facility] Work Phone: Comment on above: 1 Occurrences starti ng 07/18/2023 until 08/16/2024 CT SHOULDER WO IVCON LEFT CT SHOULDER WO IVCON LEFT Radiology Routine Rotator cuff tear arthropathy of left shoulder Ordered: 07/18/2023 [facility] Work Phone: Comment on above: Ordered: 07/18/2023 XR SHOULDER GENERAL 3V OR MORE AP/TRUE AP/OTHER RIGHT XR SHOULDER GENERAL 3V OR MORE AP/TRUE AP/OTHER RIGHT Radiology Routine Chronic right shoulder pain 07/18/2023 12:37 PM EDT [facility] Work Phone: [facility] Immunizations Immunization Date Immunization Notes Care Provider Fa cility 06-26-2023 influenza virus vaccine, unspecified formulation [facility] [place] Work Phone: [facility] 07-18-2022 SARS-CoV-2 (COVID-19 ) mRNAMUL.ORD![id number] Lonny VASQUEZ [facility] Sandra 06-24-2021 SARS-CoV-2 (COVID-19 ) mRNA BNT-162b2 vax Lonny VASQUEZ [facility] Comment on above: Result Comment: 2023: [id number] 11-15-2020 SARS-CoV-2 (COVID-19 ) mRNA BNT-162b2 garrett VASQUEZ [facility] Comment on above: Result Comment: 2023: [id number] 10-25-2020 SARS-CoV-2 (COVID-19 ) mRNA BNT-162b2 garrett RAYMUNDOL [facility] Comment on above: Result Comment: 2023: [id number] Payers Date Payer Category Payer Self-pay 2021 Unknown [id number] 2017 Medicare ANTHEM MANAGED Lesley BECK MEDIBLUE ESSENTIAL/PLUS/CONNECT/SNP O [id number] 2017-Present [id number] 2017 Medicare ANTHEM MANAGED Lesley BECK MEDIBLUE ESSENTIAL/PLUS/CONNECT/SNP O xxxxxxxxxxxx 2017-Present [id number] 1959 Unknown [id number] 1945 Unknown [id number] 1945 Unknown [id number] 2.16.840.1.845991.3.579.2.647 1943 Unknown [id number] 2.16.840.1.152471.3.579.2.647 1943 Unknown [id number] 2.16.840.1.569175.3.579.2.647 1943 Unknown [id number] 2.16.840.1.716666.3.579.2.647 1943 Unknown [id number] 2.16.840.1.864397.3.579.2.903 1943 Unknown [id number] 2.16.840.1.986795.3.579.2.593 1943 Unknown [id number] 2.16.840.1.649704.3.579.2.593 1943 Unknown [id number] 2.16.840.1.776028.3.579.2.593 1943 Unknown [id number] 2.16.840.1.367033.3.579.2.593 1943 Unknown [id number] 2.16.840.1.787580.3.579.2.593 1943 Unknown [id number] 2.16.840.1.799996.3.579.2.727 1945 Unknown [id number] 2.16.840.1.150707.3.579.2.727 Medicare [id number] Unknown [id number] [id number] Social History Date Type Detail Facility Tobacco smoking stat [facility] Unknown if ever smoked [facility] Start: 1945 Sex Assigned At Not on file O [facility] Start: 09-27-2023 [facility] Start: 03-16-2015 End: 04-25-2024 Alcohol intake Current drinker of alcohol (finding) [facility] Start: 07-18-2023 History of Social function [facility] Start: 07-18-2023 Area Deprivation Index [facility] National Score (1-10 0), lower number is lower risk 86 [facility] Start: 11-09-2007 Alcohol Comment 1-2 glasses of wine with dinner most nights [facility] Start: 09-08-2023 [facility] smoking consumption unknown [facility] Work Phone: Sex Female (finding) [facility] Start: 1945 Sex Assigned At Female F [facility] Medical Equipment Procedure Code Equipment Code Equipment Origin al Text Equipment Identifier Dates Cement Simplex P Tobramycin Bone Full Dose Radiopaque Preblend Sterile - [id number] Start: 09-11-2023 Trabecular Metal Reverse Plus Shoulder Head 36mm 0deg [id number] Start: 09-11-2023 Liner 36mm 12d 6 5d Trabecular Metal Polyethylene H+6mm Shoulder Reverse - [id number] Start: 09-11-2023 Screw Ncb 4.5mm Protasul-64wf 30mm Bone Inverse Reverse Lock Sterile - [id number] Start: 09-11-2023 Wire Liz 1 .6mm Stainless Steel 5.5in Fixation Trocar Smooth Guide - [id number] Start: 09-11-2023 Cement Simplex P Tobramycin Bone Full Dose Radiopaque Preblend Sterile - [id number] Start: 09-11-2023 Trabecular Metal Reverse Plus Base Plate 15mm [id number] Start: 09-11-2023 Stem 12mm Trabec ular Metal Tivanium 130mm Humeral Reverse Sterile Shoulder - [id number] Start: 09-11-2023 Screw Ncb Anatom ical Shoulder 4.5mm Protasul-64wf 33mm Bone Inverse Reverse - [id number] Start: 09-11-2023 Wire Liz 1 .6mm Stainless Steel 5.5in Fixation Trocar Smooth Guide - [id number] Start: 09-11-2023 Clinical Notes 07-18-2023 to 04-25-2024 Wolfgang Chou PA-C - 04/25/2024 2:19 PM Wolfgang Mcnamara PA-C - 01/11/2024 3:42 PM Tammy Rodriges Tech - 01/11/2024 12:30 PM Romina Menjivar, OLIVIAR/Cristopher - 12/26/2023 3:51 PM EDT Note Date & Type Note Facility 04-25-2024 History of Present illness Narrative Patient Name: QING FISCHER [facility] No: [id number] Date of Service: April 25, 2024 [facility] Established patient returns for interval [...] Father Hypertension Sister Coronary Artery Disease Sister [place] in 30s Anesthesia Problems No Family History [...] symptoms. This note was partially generated using [employer] voice recognition system and as such may contain grammatical or word errors Wolfgang Chou PA-C April 25, 2024 documented in this encounter [facility] 02-29-2024 Note HNO ID: [id number] Author: ROMINA DARNELL OTR/Cristopher Service: ? Author [...] scheduled additional follow-up appointments. Romina Darnell, OTR/L #[id number] [facility] 01-11-2024 Note HNO ID: [id number] Author: WOLFGANG CHOU PA-C Service: ? Author Type: Physician Cut To Length Operator Type: Progress Notes Filed: 01/11/2024 15:50 Note Text: Patient Name: QING FISCHER [facility] No: [id number] Date of Service: January 11, 2024 [facility] Patient returns for follow up approximately 4 [...] sooner. This note was partially generated using [employer] voice recognition system and as such may contain grammatical or word errors Wolfgang Chou PA-C January 11, 2024 [facility] 01-11-2024 History of Present illness Narrative Patient Name: QING FISCHER [facility] No: [id number] Date of Service: January 11, 2024 [facility] Patient returns for follow up approximately 4 [...] sooner. This note was partially generated using [employer] voice recognition system and as such may contain grammatical or word errors Wolfgang Chuo PA-C January 11, 2024 documented in this encounter [facility] 01-11-2024 History of Present illness Narrative Radiology [...] PATIENT PRESENTS WITH AN IMPLANTABLE OR ATTACHED PATENT AGENT: No RADIOLOGY DEPARTMENT: General X-ray: Exam(s) Completed: Upper Extremity X-Ray(s): Shoulder, AP / TRUE AP left / PA Y-View PERIPHERAL IV DATA: Not applicable SIGNED BY: Aston Rodrigues January 11, 2024 2:28 PM documented in this encounter [facility] 01-11-2024 Note HNO ID: [id number] Author: TAMMY LEVY Tech Service: ? Author Type: Tar And Ammonia Pump Operator Type: Progress Notes Filed: 01/11/2024 14:29 Note [...] PATIENT PRESENTS WITH AN IMPLANTABLE OR ATTACHED PATENT AGENT: No RADIOLOGY DEPARTMENT: General X-ray: Exam(s) Completed: Upper Extremity X-Ray(s): Shoulder, AP / TRUE AP left / PA Y-View PERIPHERAL IV DATA: Not applicable SIGNED BY: Aston Rodrigues January 11, 2024 2:28 PM [facility] 12-26-2023 Note HNO ID: [id number] Author: ROMINA DARNELL OTR/L Service: ? Author [...] Planned: 2 Planned Treatment Interventions: Therapeutic exercise (18957), Manual therapy (47620), Self-custodial management (68477), Patient/Family/Caregiver Education PLAN FOR NEXT VISIT: pt [...] L Shoulder Exte (more content not included)... [facility] 12-26-2023 History of Present illness Narrative Episode [...] Planned: 2 Planned Treatment Interventions: Therapeutic exercise (63619), Manual therapy (94893), Self-custodial management (67246), Patient/Family/Caregiver Education PLAN FOR NEXT VISIT: pt [...] Session Stop Time : 1540 RAHUL Olsen #[id number] documented in this encounter [facility] 12-19-2023 Note HNO ID: [id number] Author: ROMINA DARNELL OTR/L Service: ? Author [...] Session Stop Time : 1537 ELSY Olsen/Cristopher #[id number] [facility] 12-19-2023 History of Present illness Narrative Episode [...] Session Stop Time : 1537 RAHUL Olsen #[id number] documented in this encounter [facility] 12-12-2023 Note HNO ID: [id number] Author: ROMINA DARNELL OTR/L Service: ? Author [...] Session Stop Time : 1541 ELSY Olsen/Cristopher #[id number] [facility] 12-12-2023 History of Present illness Narrative Episode [...] Session Stop Time : 1541 RAHUL Olsen #[id number] documented in this encounter [facility] 12-05-2023 Note HNO ID: [id number] Author: ROMINA DARNELL OTR/L Service: ? Author [...] Session Stop Time : 1531 Romina DarnellOLIVIAR/L #[id number] [facility] 12-05-2023 History of Present illness Narrative Episode [...] Session Stop Time : 1531 RAHUL Olsen #[id number] documented in this encounter [facility] 11-28-2023 Note HNO ID: [id number] Author: ROMINA DARNELL OTR/L Service: ? Author [...] Session Stop Time : 1448 RAHUL Olsen #[id number] [facility] 11-21-2023 Note HNO ID: [id number] Author: ROMINA DARNELL OTR/L Service: ? Author [...] Planned: 4 Planned Treatment Interventions: Therapeutic exercise (12614), Manual therapy (37248), Self-custodial management (84803), Patient/Family/Caregiver Education PLAN FOR NEXT VISIT: continue [...] prior session while (more content not included)... [facility] 11-21-2023 History of Present illness Narrative Episode [...] Planned: 4 Planned Treatment Interventions: Therapeutic exercise (49973), Manual therapy (30158), Self-custodial management (15253), Patient/Family/Caregiver Education PLAN FOR NEXT VISIT: continue [...] Session Stop Time : 1532 RAHUL Olsen #[id number] documented in this encounter [facility] 11-14-2023 Note HNO ID: [id number] Author: ROMINA DARNELL OTR/L Service: ? Author [...] Stop Time : 1542 Romina Darnell OTR/L #[id number] [facility] 11-14-2023 History of Present illness Narrative Episode [...] Session Stop Time : 1542 RAHUL Olsen #[id number] documented in this encounter [facility] 11-09-2023 Note HNO ID: [id number] Author: WOLFGANG CHOU PA-C Service: ? Author Type: Physician Cut To Length Operator Type: Progress Notes Filed: 11/27/2023 13:57 Note Text: Patient Name: QING FISCHER [facility] No: [id number] Date of Service: November 09, 2023 [facility] Postoperative patient presents for suture [...] symptoms. This note was partially generated using [email or web address] recognition system and as such may contain grammatical or word errors Wolfgang Chou PA-C November 09, 2023 [facility] 11-09-2023 History of Present illness Narrative Patient Name: QING FISCHER [facility] No: [id number] Date of Service: November 09, 2023 [facility] Postoperative patient presents for suture [...] symptoms. This note was partially generated using [employer] voice recognition system and as such may contain grammatical or word errors Wolfgang Chou PA-C November 09, 2023 documented in this encounter [facility] 11-09-2023 History of Present illness Narrative Radiology [...] PATIENT PRESENTS WITH AN IMPLANTABLE OR ATTACHED PATENT AGENT: No RADIOLOGY DEPARTMENT: General X-ray: Exam(s) Completed: Upper Extremity X-Ray(s): Shoulder, AP / TRUE AP / SUPRA OUTLET left PERIPHERAL IV DATA: Not applicable SIGNED BY: LIZETH Pearson) November 09, 2023 10:22 AM documented in this encounter [facility] 11-09-2023 Note HNO ID: [id number] Author: MARLEEN CADET RT(R) Service: ? Author [...] PATIENT PRESENTS WITH AN IMPLANTABLE OR ATTACHED PATENT AGENT: No RADIOLOGY DEPARTMENT: General X-ray: Exam(s) Completed: Upper Extremity X-Ray(s): Shoulder, AP / TRUE AP / SUPRA OUTLET left PERIPHERAL IV DATA: Not applicable SIGNED BY: RT Lili(R) November 09, 2023 10:22 AM [facility] 11-06-2023 Note HNO ID: [id number] Author: ROMINA DARNELL OTR/L Service: ? Author [...] Session Stop Time : 1456 ELSY Olsen/Cristopher #[id number] [facility] 11-06-2023 History of Present illness Narrative Episode [...] Session Stop Time : 1456 ELSY Olsen/Cristopher #[id number] documented in this encounter [facility] 10-26-2023 Note HNO ID: [id number] Author: TONY COMBS MD Service: ? Author Type: Physician Type: Progress Notes Filed: 10/31/2023 13:19 Note Text: Patient Name: QING Sutton AALIYAH [facility] No: [id number] Date of Service: October 24, 2023 [facility] Patient returns for follow [...] patient was offered a surgery/procedure at a [facility] facility. The surgeon/proceduralist and patient have discussed [...] the consent form. MD Brook Mark MD [facility] 10-24-2023 Note HNO ID: [id number] Author: WOLFGANG CHOU PA-C Service: ? Author Type: Physician Cut To Length Operator Type: Progress Notes Filed: 10/26/2023 09:09 Note Text: Patient Name: QING FISCHER [facility] No: [id number] Date of Service: October 24, 2023 [facility] Patient returns for follow up approximately 6 weeks status post Left shoulder reverse total Shoulder Arthroplasty, extensive capsular release, biceps tenodesis, open reduction internal fixation of acromion fracture 09/11/[address] Combs. She continues to be pleased with her progress utilizing phase 1 protocols with occupational therapy. Pain is reported as minimal rated 0/10. She does report interval record changer the past week with prominence and [...] management. This note was partially generated using [employer] voice recognition system and as such may contain grammatical or word errors Wolfgang Chou PA-C October 24, 2023 [facility] 10-16-2023 Note HNO ID: [id number] Author: ROMINA DARNELL OTR/Cristopher Service: ? Author [...] Planned: 4 Planned Treatment Interventions: Therapeutic exercise (47700), Manual therapy (22999), Self-custodial management (75504), Patient/Family/Caregiver Education PLAN FOR NEXT VISIT: continue [...] half of resp (more content not included)... [facility] 10-12-2023 Note HNO ID: [id number] Author: ROMINA DARNELL OTR/L Service: ? Author [...] Session Stop Time : 1452 RAHUL Olsen #[id number] [facility] 10-02-2023 Note HNO ID: [id number] Author: ROMINA DARNELL OTR/L Service: ? Author [...] Stop Time : 1231 Romina Darnell, OTR/L #[id number] [facility] 09-29-2023 Note HNO ID: [id number] Author: WOLFGANG CHOU PA-C Service: ? Author Type: Physician Cut To Length Operator Type: Progress Notes Filed: 10/23/2023 23:33 Note Text: [id number] Date of Service: September 29, 2023 [facility] Patient returns for follow up [...] sooner. This note was partially generated using [employer] voice recognition system and as such may contain grammatical or word errors Wolfgang Chou PA-C September 29, 2023 [facility] 09-15-2023 Note HNO ID: [id number] Author: Miladis Robertson OTR/L Service: ? Author [...] Comments: No active shoulder motion; sling on realtime reporter with the exception for prescribed OT exercises [...] Injury: Other: See comments (wear and tear) [facility] OCCUPATIONAL THERAPY EVALUATION [...] Planned: 16 Planned Treatment Interventions: Therapeutic exercise (04784), Manual therapy (13783), Self-custodial management (09419), Patient/Family/Caregiver Education (heat pack) PLAN FOR NEXT [...] Information: Prescription pre (more content not included)... [facility] 09-12-2023 Note HNO ID: [id number] Author: Juan Pope MD Service: Orthopaedic Surgery [...] Pope MD, PGY-2 Orthopaedic Surgery Personal cell/pager: [phone] Between 5PM to 7AM, on weekends or if urgent, please page the orthopaedic on-call resident at: [phone] ([phone]) for [facility] patients 10481 for [facility] patients 43823 for [facility] patients [address]20 for [facility] patients 7[address] for [facility] patients [facility] 09-11-2023 Note HNO ID: [id number] Author: Floyd Ramos AA Service: ? Author Type: Coremaking Supervisor Type: Anesthesia Procedure Notes Filed: 09/11/2023 [...] September 11, 2023 TIME: 1:11 PM CSN: [id number] [facility] 09-11-2023 Note HNO ID: [id number] Author: Sil Sanchez MD Service: Anesthesiology Author [...] September 11, 2023 TIME: 11:22 AM CSN: [id number] [facility] 08-29-2023 Note HNO ID: [id number] Author: Tony Combs MD Service: ? Author Type: Physician Type: Progress Notes Filed: 08/30/2023 2:03 PM Note Text: [facility] NOTE DEPARTMENT OF ORTHOPAEDICS Evaluation with Tony Combs Jr., M.D. Patient Name: QING FISCHER [facility] No: [id number] : 1945 Qing Fischer is a pleasant [...] patient was offered a surgery/procedure at a [facility] facility. The surgeon/proceduralist and patient have discussed [...] Combs MD Recorded by: Luis Barney MD ([facility] 08-29-2023 History of Present illness Narrative [facility] DEPARTMENT OF ORTHOPAEDICS Evaluation with Tony Combs Jr., M.D. Patient Name: QING FISCHER Clinic No: [id number] : 1945 Qing Fischer is a pleasant [...] patient was offered a surgery/procedure at a [facility] facility. The surgeon/proceduralist and patient have discussed [...] Barney MD (scribe) documented in this encounter [facility] 08-01-2023 Note HNO ID: [id number] Author: Sina Coronado RT(R) Service: Radiology Author [...] Coronado RT(R) August 01, 2023 12:37 PM [facility] 07-18-2023 Note HNO ID: [id number] Author: Tony Combs MD Service: ? Author Type: Physician Type: Progress Notes Filed: 07/22/2023 10:43 AM Note Text: [facility] NOTE DEPARTMENT OF ORTHOPAEDICS Evaluation with Tony Combs Jr., M.D. Patient Name: QING Sutton [facility] No: [id number] : 1945 This is an active 78 [...] Artery Disease Father Coronary Artery Disease Sister [place] in 30s PAST SURGICAL HISTORY Procedure Laterality [...] is been obtained. Recorded by: Barrington Freitas, [facility] 07-18-2023 Note HNO ID: [id number] Author: Jennifer Hernandez RT(Angel) Service: Radiology Author [...] RT Shemar(R) July 18, 2023 12:38 PM [facility] 07-18-2023 Note HNO ID: [id number] Author: Diana Ayala RT(R) Service: Radiology Author Type: Tar And Ammonia Pump Operator Type: Progress Notes Filed: 07/18/2023 12:03 PM [...] RT Kayla(R) July 18, 2023 12:02 PM [facility] 07-18-2023 History of Present illness Narrative [facility] NOTE DEPARTMENT OF ORTHOPAEDICS Evaluation with Tony Combs Jr., M.D. Patient Name: QING FISCHER [facility] No: [id number] : 1945 This is an active 78 [...] Artery Disease Father Coronary Artery Disease Sister [place] in 30s PAST SURGICAL HISTORY Procedure Laterality [...] Barrington Freitas DO documented in this encounter [facility] 07-18-2023 History of Present illness Narrative Radiology [...] 2023 12:38 PM documented in this encounter [facility] Evaluation + Plan note No data available for this section [facility] [place] Evaluation note Diagnosis Pain Generalized pain Chronic right shoulder pain Pain in joint, shoulder region documented [facility] Diagnosis Rotator cuff tear arthropathy of left shoulder- Primary Chronic right shoulder pain Pain in joint, shoulder region Nontraumatic complete tear of rotator cuff, left Injury of tendon of long head of biceps, left, initial encounter Closed displaced fracture of acromial process, unspecified laterality, sequela documented [facility] Diagnosis Rotator cuff tear arthropathy of left shoulder- Primary Closed displaced fracture of acromial process, unspecified laterality, sequela Nontraumatic complete tear of rotator cuff, left Injury of tendon of long head of biceps, left, initial encounter Contracture of shoulder, left [facility] Diagnosis Closed displaced fracture of acromial process, unspecified laterality, sequela- Primary Status post reverse arthroplasty of left shoulder [facility] Diagnosis Decreased range of motion of left shoulder- Primary S/P reverse total shoulder arthroplasty, 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, 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 [facility] Diagnosis S/P reverse total shoulder arthroplasty, left [facility] Diagnosis Decreased range of motion of left shoulder- Primary S/P reverse total shoulder arthroplasty, 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, 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 [facility] Diagnosis Decreased range of motion of left shoulder- Primary S/P reverse total shoulder arthroplasty, 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, 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 [facility] Diagnosis S/P reverse total shoulder arthroplasty, left- Primary Nontraumatic complete tear of rotator cuff, left Closed displaced fracture of acromial process, unspecified laterality, sequela [facility] Diagnosis Decreased range of motion of left shoulder- Primary S/P reverse total shoulder arthroplasty, 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, 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 documented in this encounter [facility] note* Diagnosis S/P reverse total shoulder arthroplasty, left- Primary documented in this encounter [facility] note* Diagnosis S/P reverse total shoulder arthroplasty, left documented in this encounter [facility] note* Diagnosis S/P reverse total shoulder arthroplasty, left documented in this encounter [facility] note* Diagnosis Pre-op evaluation- Primary Preoperative examination, unspecified Hypothyroidism, unspecified type OAB (overactive bladder) Hypertonicity of bladder Gastroesophageal reflux disease without esophagitis Esophageal reflux S/P reverse total shoulder arthroplasty, left- Primary S/P reverse total shoulder arthroplasty, left documented in this encounter [facility] noteNo assessment information availableKettering Health [facility] Work Phone: Hospital Discharge instructions No data available for this section [facility] Progress note No data available for this section [facility] Reason for referral (narrative)* Diagnostic Procedure Only (Routine) - Closed Specialty Diagnoses / Procedures Referred By Ariel whelan Referred To Contact XR IMAGING Diagnoses Chronic right shoulder pain Procedures XR SHOULDER GENERAL 3V OR MORE AP/TRUE AP/OTHER RIGHT RADEX SHOULDER COMPLETE [place]IMUM 2 [place] [address] [place] [address] Xr Imaging [place] [address] Referral ID Status Reason Start Date Expiration Date V isits Requested Visits Authorized [id number] Closed Auto-Generate d Referral 07/18/2023 08/16/2024 1 1 * Consult, Test, Treat (Routine) - Pending Review Specialty Diagnoses / Procedures Referred By Ariel whelan Referred To Contact Diagnoses Rotator cuff tear arthropathy of left shoulder Procedures REFER TO PACC - PRE ANESTHESIA CONSULTATION CLINIC OFFICE/OUTPATIENT [facility] 60-[place] [address] [place] [address] Referral ID Status Reason Start Date Expiration Date Visits Requested Visits Authorized [id number] Pending Review PCP Requested Referral 3 07/17/2024 1 1 * MRI/CT (Routine) - Authorized Specialty Diagnoses / Procedures Referred By Diegoac t Referred To Contact CT IMAGING Diagnoses Rotator cuff tear arthropathy of left shoulder Procedures CT SHOULDER WO IVCON LEFT CT UPPER EXTREMITY W/[place] [address] [place] [address] [place] [address] Referral ID Status Reason Start Date Expiration Date Visits Requested Visits Authorized [id number] Authorized Auto-Generat ed Referral 3 08/16/2024 1 1 [facility] for referral (narrative)* Diagnostic Procedure Only (Routine) - Closed Specialty Diagnoses / Procedures Referred By Ariel whelan Referred To Contact XR IMAGING Diagnoses S/P reverse total shoulder arthroplasty, left Procedures XR SHOULDER GENERAL 3V OR MORE AP/TRUE AP/OTHER LEFT RADEX SHOULDER COMPLETE MINIMUM 2 VIEWS Wolfgang Chou PA-C [address] [place] [address] [place] [address] Referral ID Status Reason Start Date Expiration Date V isits Requested Visits Authorized [id number] Closed Auto-Generate d Referral 11/08/2023 12/07/2024 1 1 [facility] for referral (narrative)* - Pending Review Specialty Diagnoses / Procedures Referred By Ariel t Referred To Contact Diagnoses S/P reverse total shoulder arthroplasty, 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, left Closed displaced fracture of acromial process, unspecified laterality, sequela Procedures CONSULT TO BOLOGNA LACER Wolfgang Chou PA-C [address] [place] [address] Referral ID Status Reason Start Date Expiration Date V isits Requested Visits Authorized [id number] Pending Review 11/09/2023 02/07/2024 1 1 * Diagnostic Procedure Only (Routine) - Closed Specialty Diagnoses / Procedures Referred By Contac t Referred To Contact XR IMAGING Diagnoses S/P reverse total shoulder arthroplasty, left Procedures XR SHOULDER GENERAL 3V OR MORE AP/TRUE AP/OTHER LEFT RADEX SHOULDER COMPLETE MINIMUM 2 VIEWS Wolfgang Chou PA-C [address] [place] [address] [place] [address] Referral ID Status Reason Start Date Expiration Date V isits Requested Visits Authorized [id number] Closed Auto-Generate d Referral 11/08/2023 12/07/2024 1 1 [facility] for referral (narrative)* Diagnostic Procedure Only (Routine) - Closed Specialty Diagnoses / Procedures Referred By Contac t Referred To Contact XR IMAGING Diagnoses S/P reverse total shoulder arthroplasty, left Procedures XR SHOULDER GENERAL 3V OR MORE AP/TRUE AP/OTHER LEFT RADEX SHOULDER COMPLETE MINIMUM 2 VIEWS Wolfgang Chou PA-C [address] [place] [address] [place] [address] Referral ID Status Reason Start Date Expiration Date V isits Requested Visits Authorized [id number] Closed Auto-Generate d Referral 01/10/2024 02/08/2025 1 1 [facility] for referral (narrative)* Diagnostic Procedure Only (Routine) - Closed Specialty Diagnoses / Procedures Referred By Contac t Referred To Contact XR IMAGING Diagnoses S/P reverse total shoulder arthroplasty, left Procedures XR SHOULDER GENERAL 3V OR MORE AP/TRUE AP/OTHER LEFT RADEX SHOULDER COMPLETE MINIMUM 2 VIEWS Wolfgang Chou PA-C [address] [place] [address] [place] [address] Referral ID Status Reason Start Date Expiration Date V isits Requested Visits Authorized [id number] Closed Auto-Generate d Referral 01/10/2024 02/08/2025 1 1 [facility] for referral (narrative)* Diagnostic Procedure Only (Routine) - Closed Specialty Diagnoses / Procedures Referred By Contac t Referred To Contact XR IMAGING Diagnoses S/P reverse total shoulder arthroplasty, left Procedures XR SHOULDER GENERAL 3V OR MORE AP/TRUE AP/OTHER LEFT RADEX SHOULDER COMPLETE MINIMUM 2 VIEWS Wolfgang Chou PA-C [address] [place] [phone] [place] [address] Referral ID Status Reason Start Date Expiration Date V isits Requested Visits Authorized [id number] Closed Auto-Generate d Referral 04/25/2024 05/22/2025 1 1 [facility] for referral (narrative)* Diagnostic Procedure Only (Routine) - Closed Specialty Diagnoses / Procedures Referred By Contac t Referred To Contact XR IMAGING Diagnoses S/P reverse total shoulder arthroplasty, left Procedures XR SHOULDER GENERAL 3V OR MORE AP/TRUE AP/OTHER LEFT RADEX SHOULDER COMPLETE MINIMUM 2 VIEWS Wolfgang Chou PA-C [address] [place] [phone] Xr Imaging [facility] Referral ID Status Reason Start Date Expiration Date V isits Requested Visits Authorized [id number] Closed Auto-Generate d Referral 04/25/2024 05/22/2025 1 1 [facility] for referral (narrative)No reason for referral [facility] N[facility] Diagnostic Procedure Only (Routine) - Closed Specialty Diagnoses / Procedures Referred By Contac t Referred To Contact XR IMAGING Diagnoses Pain Procedures XR SHOULDER GENERAL 3V OR MORE AP/TRUE AP/OTHER LEFT RADEX SHOULDER COMPLETE MINIMUM 2 VIEWS Leeann Mcgee MD [address] [place], [place] [phone] [place] [address] Referral ID Status Reason Start Date Expiration Date V isits Requested Visits Authorized [id number] Closed Auto-Generate d Referral 06/08/2023 07/07/2024 1 1 [facility] for visit Narrative* Diagnostic Procedure Only (Routine) - Closed Specialty Diagnoses / Procedures Referred By Contac t Referred To Contact XR IMAGING Diagnoses S/P reverse total shoulder arthroplasty, left Procedures XR SHOULDER GENERAL 3V OR MORE AP/TRUE AP/OTHER LEFT RADEX SHOULDER COMPLETE MINIMUM 2 VIEWS Wolfgang Chou PA-C [address] [place] [phone] [place] [address] Referral ID Status Reason Start Date Expiration Date V isits Requested Visits Authorized [id number] Closed Auto-Generate d Referral 11/08/2023 12/07/2024 1 1 [facility] for visit Narrative* Diagnostic Procedure Only (Routine) - Closed Specialty Diagnoses / Procedures Referred By Contac t Referred To Contact XR IMAGING Diagnoses S/P reverse total shoulder arthroplasty, left Procedures XR SHOULDER GENERAL 3V OR MORE AP/TRUE AP/OTHER LEFT RADEX SHOULDER COMPLETE MINIMUM 2 VIEWS Wolfgang Chou PA-C [address] [place] [address] [place] [address] Referral ID Status Reason Start Date Expiration Date V isits Requested Visits Authorized [id number] Closed Auto-Generate d Referral 04/25/2024 05/22/2025 1 1 [facility] Summary Purpose Family History No Family History Records FoundNo Family History Records FoundNo Family History Records FoundNo Family History Records FoundNo Family History Records FoundNo Family History Records Found No data available for this section No Family History Records FoundNo Family History Records Found Advance Directives No Advanced Directives Records FoundDocuments on File Type Date Recorded 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 Name: Qing Fischer Admitted: 07/13/2018 Discharged: [...] be sent through Care Everywhere. * Sinusitis (Malay) documented in this encounter Assessments Diagnosis Acute non-recurrent frontal sinusitis- Primary Reason for Referral Specialty Diagnoses / Procedures Referred By Contmaddy t Referred To Contact Diagnoses Rotator cuff tear arthropathy of left shoulder Procedures REFER TO PACC - PRE ANESTHESIA CONSULTATION CLINIC OFFICE/OUTPATIENT [facility] 60-[place] [address] [facility] [place] [address] [address] Referral ID Status Reason Start Date Expiration Date Visits Requested Visits Authorized [id number] Pending Review PCP Requested Referral 08/29/2023 08/28/2024 1 1 Specialty Diagnoses / Procedures Referred By Contac t Referred To Contact [facility] Diagnoses Closed displaced fracture of acromial process, unspecified laterality, sequela Status post reverse arthroplasty of left shoulder Procedures CONSULT TO BOLOGNA LACER OCCUPATIONAL THERAPY EVAL [facility] COMPLEX [place] [address] [facility] [address] [address] [facility] [place] [address] [place] [address] Referral ID Status Reason Start Date Expiration Date Visits Requested Visits Authorized [id number] Pending Review Auto-Generat ed Referral 09/11/2024 1 1 Additional Source Comments INFORMATION SOURCE (unrecogn ized section and content) DATE CREATED AUTHOR 11/14/2018 [facility] DATE CREATED AUTHOR AUTHOR'S ORGANIZ ATION 05/19/2019 [facility] DATE CREATED AUTHOR AUTHOR'S ORGANIZ ATION 05/24/2022 [facility] DATE CREATED AUTHOR AUTHOR'S ORGANIZ ATION 02/09/2023 [facility] DATE CREATED AUTHOR AUTHOR'S ORGANIZ ATION 02/12/2024 [facility] DATE CREATED AUTHOR AUTHOR'S ORGANIZ ATION 04/28/2024 [facility] DATE CREATED AUTHOR AUTHOR'S ORGANIZ ATION 07/25/2024 [facility] DATE CREATED AUTHOR AUTHOR'S ORGANIZ ATION 06/07/2025 [facility] Reason for Visit (unrecogniz ed section and content) Reason Comments OT Progress Note Specialty Diagnoses / Procedures Referred By Diegoac t Referred To Contact Diagnoses 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, 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, left Procedures CONSULT TO BOLOGNA LACER Wolfgang Chou PA-C [address] [place] [address] [facility] [address] [address] Referral ID Status Reason Start Date Expiration Date V isits Requested Visits Authorized [id number] Authorized 09/25/2023 09/24/2024 20 20 Reason Comments [...] COMPLETE MINIMUM 2 VIEWS Wolfgang Chou PA-C [address] [place] [address] [place] [address] Referral ID Status Reason Start Date Expiration Date V isits Requested Visits Authorized [id number] Closed Auto-Generate d Referral 01/10/2024 02/08/2025 1 [...] Associated Order(s): EKG 12-lead ED PROVIDER NOTE [facility] NAME: Qing Fischer AGE: 73 y.o. : 1945 VISIT DATE: 04/06/2019 CSN: [id number] PCP: Nona Mcknight MD Chief Complaint Patient [...] file Gets together: Not on file Attends mosque service: Not on file Active member of [...] 1. Nona Mcknight MD. Specialty: Family Medicine [address] [place], [place] [phone] Contact information for after-discharge care Follow-up information [...] States that she is currently here in [facility] for the past four days. documented in this encounter Source Comments (unrecognize d section and content) In the event this informatio n is protected by the Federal Confidentiality of Alcohol and Drug Abuse Patient Records regulations: The Federal rules restrict any use of the information to criminally investigate or prosecute any alcohol or drug abuse patient.[facility] the event this information is protected by the Federal Confidentiality of Alcohol and Drug Abuse Patient Records regulations: The Federal rules restrict any use of the information to criminally investigate or prosecute any alcohol or drug abuse patient.[facility] Hospital[facility] the event this information is protected by the Federal Confidentiality of Alcohol and Drug Abuse Patient Records regulations: The Federal rules restrict any use of the information to criminally investigate or prosecute any alcohol or drug abuse patient.[facility] Hospital[facility] the event this information is protected by the Federal Confidentiality of Alcohol and Drug Abuse Patient Records regulations: The Federal rules restrict any use of the information to criminally investigate or prosecute any alcohol or drug abuse patient.[facility] Hospital[facility] the event this information is protected by the Federal Confidentiality of Alcohol and Drug Abuse Patient Records regulations: The Federal rules restrict any use of the information to criminally investigate or prosecute any alcohol or drug abuse patient.[facility] HospitalIn the event this information is protected by the Federal Confidentiality of Alcohol and Drug Abuse Patient Records regulations: The Federal rules restrict any use of the information to criminally investigate or prosecute any alcohol or drug abuse patient.[facility] HospitalIn the event this information is protected by the Federal Confidentiality of Alcohol and Drug Abuse Patient Records regulations: The Federal rules restrict any use of the information to criminally investigate or prosecute any alcohol or drug abuse patient.[facility] HospitalIn the event this information is protected by the Federal Confidentiality of Alcohol and Drug Abuse Patient Records regulations: The Federal rules restrict any use of the information to criminally investigate or prosecute any alcohol or drug abuse patient.[facility] HospitalIn the event this information is protected by the Federal Confidentiality of Alcohol and Drug Abuse Patient Records regulations: The Federal rules restrict any use of the information to criminally investigate or prosecute any alcohol or drug abuse patient.[facility] HospitalIn the event this information is protected by the Federal Confidentiality of Alcohol and Drug Abuse Patient Records regulations: The Federal rules restrict any use of the information to criminally investigate or prosecute any alcohol or drug abuse patient.[facility] HospitalIn the event this information is protected by the Federal Confidentiality of Alcohol and Drug Abuse Patient Records regulations: The Federal rules restrict any use of the information to criminally investigate or prosecute any alcohol or drug abuse patient.[facility] HospitalIn the event this information is protected by the Federal Confidentiality of Alcohol and Drug Abuse Patient Records regulations: The Federal rules restrict any use of the information to criminally investigate or prosecute any alcohol or drug abuse patient.[facility] HospitalIn the event this information is protected by the Federal Confidentiality of Alcohol and Drug Abuse Patient Records regulations: The Federal rules restrict any use of the information to criminally investigate or prosecute any alcohol or drug abuse patient.[facility] HospitalIn the event this information is protected by the Federal Confidentiality of Alcohol and Drug Abuse Patient Records regulations: The Federal rules restrict any use of the information to criminally investigate or prosecute any alcohol or drug abuse patient.[facility] HospitalIn the event this information is protected by the Federal Confidentiality of Alcohol and Drug Abuse Patient Records regulations: The Federal rules restrict any use of the information to criminally investigate or prosecute any alcohol or drug abuse patient.[facility] HospitalIn the event this information is protected by the Federal Confidentiality of Alcohol and Drug Abuse Patient Records regulations: The Federal rules restrict any use of the information to criminally investigate or prosecute any alcohol or drug abuse patient.[facility] HospitalIn the event this information is protected by the Federal Confidentiality of Alcohol and Drug Abuse Patient Records regulations: The Federal rules restrict any use of the information to criminally investigate or prosecute any alcohol or drug abuse patient.[facility] Care Teams (unrecognized sec tion and content) Electrical Contractor Relationship Specialty Start Date End Date Nona Mcknight MD [address] [place] [facility] [place] [address] PCP - General 12/11/07 Electrical Contractor Relationship Specialty Start Date End Date Nona Mcknight MD [address] [place] [facility] [place] [address] PCP - General 12/11/07 Electrical Contractor Relationship Specialty Start Date End Date Nona Mcknight MD [address] [place] [facility] [place] [address] PCP - General 12/11/07 Electrical Contractor Relationship Specialty Start Date End Date Nona Mcknight MD [address] [place] [facility] [place] [address] PCP - General 12/11/07 Electrical Contractor Relationship Specialty Start Date End Date Nona Mcknight MD [address] [place] [facility] [place] [address] PCP - General 12/11/07 Electrical Contractor Relationship Specialty Start Date End Date Nona Mcknight MD [address] [place] [facility] [place] [address] PCP - General 12/11/07 Electrical Contractor Relationship Specialty Start Date End Date Nona Mcknight MD [address] [facility] [place] [address] PCP - General 12/11/07 Electrical Contractor Relationship Specialty Start Date End Date Nona Mcknight MD [address] [facility] [place] [place] [address] PCP - General 12/11/07 Electrical Contractor Relationship Specialty Start Date End Date Nona Mcknight MD [address] [place] [address] PCP - General 12/11/07 Electrical Contractor Relationship Specialty Start Date End Date Nona Mcknight MD [address] [place] [phone] PCP - General 12/11/07 Electrical Contractor Relationship Specialty Start Date End Date Nona Mcknight MD [address] [place] [address] PCP - General 12/11/07 Electrical Contractor Relationship Specialty Start Date End Date Nona Mcknight MD [address] [place] [phone] PCP - General 12/11/07 Electrical Contractor Relationship Specialty Start Date End Date Nona Mcknight MD [address] [place] [address] PCP - General 12/11/07 Electrical Contractor Relationship Specialty Start Date End Date Nona Mcknight MD [address] [place] [phone] PCP - General 12/11/07 Electrical Contractor Relationship Specialty Start Date End Date Nona Mcknight MD [address] [place] [address] PCP - General 12/11/07 Team Status: Inactive [...] BE BASED ON THE PRIMARY CLINICAL RECORDS. [facility]. provides no warranty or guarantee of the accuracy or completeness of information in this document.
--- OUTSIDE RECORDS SUMMARY | 2025-07-16 14:52 | XMS_ITS | Clinical Summary ---
Author Organization [facility] Address [address] [place] [address] Care Team Providers Care Analytical Scientist Name Role Phone Unavailable Primary Care Provider Unavailabl e Allergies Active AllergyReactionsCriticalityNoted DateCommentsAmoxicillinDiarrhea,Other, DgidUamdrn82/19/2014 Rash LacoagmjlveymZrvloke15/09/6101FugsxorPwsozVupgnz49/18/2008 Other Reaction(s): HOT FLASH, Mental Status Change hot hot flash Tylenol with codeine. Hot/ flushed. GglykhXjydAzz22/30/2020 Other Reaction(s): SKIN IRRITATION Skin irritation Penicillin MQcldbrbgAbwjif94/15/2018Sulfa Sipfrarfmve57/09/2024 Medications MedicationSigDispense QuantityRefillsLast FilledStart DateEnd DateStatus cholecalciferol (Vitamin D-3) 50 MCG (2000 UT) capsule Take 2,000 Units by mouth in the morning.Active levothyroxine (Synthroid, Levoxyl) 88 MCG tablet Take 88 mcg by mouth DailyActive liothyronine (Cytomel) 5 MCG tablet Take 5 mcg by mouth DailyActive pantoprazole (ProtoNix) 40 MG EC tablet Take 40 mg by mouth Daily01/29/2024ctive rOPINIRole (Requip) 1 MG tablet TAKE 1 TABLET BY MOUTH 1 TO 3 HOURS BEFORE BEDTIME DAILY01/19/2024ctive Active Problems ProblemNoted DateDiagnosed DateAge-related nuclear cataract of both eyes 04/02/2024iceps tendon tear, Left06/08/2023Rotator cuff insufficiency of left hruumohc62/14/2023 Social History Tobacco UseTypesPacks/DayYears UsedDateSmoking Tobacco: NeverSmokeless Tobacco: Never Tobacco Cessation:Counseling Given: Not Answered CommentsUnknownSex and Gender InformationValueDate RecordedSex Assigned at BirthNot on fileLegal GpnNjvqet60/15/2023 7:31 PM EDTGender IdentityNot on fileSexual OrientationNot on file Last Filed Vital Signs Vital SignReadingTime TakenCommentsBlood Jnqnzhto756/8008 12:00 PM EDT Pulse--Temperature--Respiratory Rate--Oxygen Saturation--Inhaled Oxygen Concentration--Cplkpy69.6 kg (138 lb)04/27/2022 12:00 PM TGJSzppoi685.4 cm (5') 02/28/2022 12:00 PM EDTBody Mass Index26.95002/28/2022 12:00 PM EDT Plan of Treatment DateTypeDepartmentCare Team (Latest Contact Info)Klrrdxabher71/10/2027 1:00 PM ESTTelemedicine [facility] [address] [place] [phone] Jr. Lyndon Thomason, DO [address] [place], [place] [id number] Insurance Advance Directives TypeDate RecordedPatient RepresentativeExplanationAdvance Directives and Living Will full code
--- OUTSIDE RECORDS SUMMARY | 2025-07-16 14:52 | XMS_ITS | Clinical Summary ---
Author Organization [employer] tem Address [id number] [address] [place] [address] Care Team Providers Care Guard Chief Name Role Phone Nash Marcial MD Primary Care Provider [phone] Allergies Active AllergyReactionsCriticalityNoted DateCommentsAmoxicillinDiarrheaMedium 08/09/20189383IjixkjhUqsxmskzOvv68/15/2018 hot flash Dlesty5110/24/2019 Skin irritation ChlntmtjygNwszsubfLrhidk37/15/2018Sulfa (Sulfonamide Antibiotics)08/09/2018 doesnt remember reaction Medications MedicationSigDispense QuantityRefillsLast FilledStart DateEnd DateStatus HYDROcodone-acetaminophen (NORCO) 5-325 mg per tablet Take 1 tablet by mouth every 6 (six) hours as needed for pain.Active mirabegron (MYRBETRIQ) 25 mg tablet extended release 24 hr Take 25 mg by mouth daily.Active cholecalciferol, vitamin D3, (VITAMIN D3) 2,000 units capsule Take 2,000 Units by mouth daily.Active ascorbic acid, vitamin C, (ascorbic acid with victorina hips) 500 mg tablet Take 500 mg by mouth daily.Active ubidecarenone (CO Q-10 ORAL) Take 1 capsule by mouth daily.Active calcium carbonate (TUMS) 200 mg (500 mg) chewable tablet Chew 1 tablet and swallow as needed for indigestion.Active Lactobacillus rhamnosus GG (CULTURELLE ORAL) Take 1 capsule by mouth daily.Active omega 2-rxf-sve-fish oil (FISH OIL) 1,600-500-800 mg/5 mL liquid Take 5 mL by mouth daily.Active omeprazole (PriLOSEC) 40 mg capsule Take 40 mg by mouth daily.Active docusate sodium (COLACE) 100 mg capsule Take 100 mg by mouth daily.Active ibuprofen (ADVIL,MOTRIN) 200 mg tablet Take 200 mg by mouth every 6 (six) hours as needed for pain.Active aspirin 325 mg tablet Take 325 mg by mouth daily.Active pantoprazole (PROTONIX) 20 mg EC tablet Take 20 mg by mouth daily.Active acetaminophen (TYLENOL) 500 mg tablet Take 500 mg by mouth every 6 (six) hours as needed for pain.Active niacin 100 mg tablet Take by mouth daily with breakfast.Active turmeric 400 mg capsule Take 450 mg by mouth.Active biotin 10,000 mcg capsule Take 10,000 mcg by mouth.Active grape seed extract (GRAPE SEED ORAL) Take by mouth.Active glucosamine/chondr tabares A sod (OSTEO BI-FLEX ORAL) Take by mouth.Active multivit/iron/FA/K/herb no.244 (ALIVE WOMEN'S ENERGY ORAL) Take by mouth.Active NON FORMULARY prolia injection every 6 months. Last dose July 2019Active methylPREDNISolone (MEDROL DOSEPACK) 4 mg tablet follow package directions 21 tablet 12/26/2019Active Active Problems ProblemNoted DateDiagnosed DateLumbosacral spondylosis without myelopathy 10/24/2019 Overview (10/24/2019): Added automatically from request for surgery [id number] Family History RelationNameStatusCommentsFatherDeceasedMotherDeceased Social History Tobacco UseTypesPacks/DayYears UsedDateSmoking Tobacco: NeverSmokeless Tobacco: NeverAlcohol UseStandard Drinks/WeekCommentsYes0 (1 standard drink = 0.6 oz pure alcohol)sociallyChildcareAnswerDate LpwyuqrzNtvkeuxwsSigwuwe18/12/2019Employment AnswerDate TfwjfyoaCtqdpireviEmaqfcz70/12/2019Purpose - LifeAnswerDate Recorded Purpose and direction in xnguJriqbok42/11/2021CommentsNoSex and Gender InformationValueDate RecordedSex Assigned at BirthNot on fileLegal SexFemale 04/30/2015 12:04 PM EDTGender IdentityNot on fileSexual OrientationNot on file Last Filed Vital Signs Vital SignReadingTime TakenCommentsBlood Aelkyajx904/7103 11:55 AM EST Mcarn0066 11:55 AM POBHlyfvdfzdfv71.9 ??C (98.5 ??F)11/29/2019 11:16 AM ESTRespiratory Cckl734211/29/2019 11:55 AM ESTOxygen Muhzdzjzhb68%11/29/2019 11:55 AM ESTInhaled Oxygen Concentration--Zbjapr14.8 kg (145 lb)10/24/2019 2:08 PM EST Lydohb385.4 cm (5')08/09/2018 11:07 AM ESTBody Mass Index28.32110/09/2017 11:07 AM EST Plan of Treatment Health MaintenanceDue DateLast DoneCommentsDepression Tcwibfcxf94/22/1955Tobacco Iuhxajwxi31/22/1955DTaP,Tdap and Td Vaccines (1 - Tdap)1962Zoster (Shingles) Vaccine (1 of 2)1993Fall Risk Cnhxjfpqe65/22/2008Influenza Fuhegut5805/26/2025 Medical Devices Not on file Insurance Care Teams Team MemberRelationshipSpecialtyStart DateEnd Nash Marcial MD PCP - Oexdwoa01/14/18
--- OUTSIDE RECORDS SUMMARY | 2025-07-16 14:54 | XMS_ITS | Clinical Summary ---
Author Organization [facility] Address [address] [place] [address] Phone Care Team Providers Care Alpine Patroller Name Role Phone Unavailable Primary Care Provider Unavailabl e Social History Tobacco UseTypesPacks/DayYears UsedDateSmoking Tobacco: Never Assessed CommentsUnknownSex and Gender InformationValueDate RecordedSex Assigned at Not on fileLegal HknDitvmu26/02/2023 2:40 AM EDTGender IdentityNot on fileSexual OrientationNot on file Plan of Treatment Not on file
--- OUTSIDE RECORDS SUMMARY | 2025-07-16 14:54 | XMS_ITS | Patient Health Record ---
Author Organization [facility] Address [address] [place] [address] Care Team Providers Care Die Cutter Diamond Name Role Phone Nash Marcial Primary Care Provider Mc Simmons Unavailable [phone] Reason For Referral No Information Problems Problem Type SNOMED Code ICD Code Onset Dates Problem Status W/U Status Risk Notes Problem [id number] Pain, joint, shoulder, right (M25.511) Activeconfirmed Plan Of Treatment No Information Insurance Providers Payer Name Payer Address Payer Phone Subscriber Number Group Number Insured Name Patient Relationship to Insured Coverage Start Date Coverage End Date Medicare [place] [employer] [address] [place] [address] [phone] [id number] [facility] 0 GOMEZ FISCHER Self - patient is the insured 5
--- OUTSIDE RECORDS SUMMARY | 2025-07-16 14:54 | XMS_ITS | Clinical Summary ---
Author Organization [facility] Address [address] [place] [address] Care Team Providers Care Valve Inspector Name Role Phone Nash Marcial MD Primary Care Provider [phone] Allergies Active AllergyReactionsCriticalityNoted JljxGvajtfhpCdakbepqkvh35/13/2019 Rash Gppvmpn1204/06/2019 hot Medications MedicationSigDispense QuantityRefillsLast FilledStart DateEnd DateStatus azithromycin (ZITHROMAX) 250 MG tablet Two at first, then one daily . 6 tablet 04/06/2019Active Social History Tobacco UseTypesPacks/DayYears UsedDateSmoking Tobacco: Never Assessed CommentsNoSex and Gender InformationValueDate RecordedSex Assigned at BirthNot on fileLegal GsjGqsqvq12/13/2019 10:37 AM EDTGender IdentityNot on fileSexual MttxfwjztiwMapyucez47/13/2019 10:42 AM EDT Last Filed Vital Signs Vital SignReadingTime TakenCommentsBlood Ffadwntn556/7107 12:11 PM EDT Zdyjo2891 12:11 PM LFOMivfsjkrzdd01.7 ??C (98.1 ??F)04/06/2019 12:11 PM EDTRespiratory Xiun040904/06/2019 11:52 AM EDTOxygen Fyrqdbnorg23%04/06/2019 12:11 PM EDTInhaled Oxygen Concentration--Ksbcxg70.9 kg (145 lb 3.2 oz)04/06/2019 10:43 AM EDTHeight--Body Mass Index-- Plan of Treatment Not on file Insurance Care Teams Team MemberRelationshipSpecialtyStart DateEnd Nash Marcial MD [address] [place] [address] [facility]06[facility]
--- OUTSIDE RECORDS SUMMARY | 2025-07-16 14:54 | XMS_ITS | Patient Health Record ---
Author Organization [facility] [place] Address [address] [place] [address] Care Team Providers Care Rapid Extractor Operator Name Role Phone Siva Marcial Primary Care Provider [phone] Gabrilela Cervantes Unavailable [phone] Allergies Allergen (clinical drug ingredient) Drug/Non Drug Allergy documented on EMR Reaction Allergy Type Onset Date Status amoxicillin Amoxicillin diarrhea, yeast Drug Allergy ActivecodeineCodeinehot flashes, near syncopeDrug AllergyActivenickelNickelrash AllergyActive Results Component Value Reference Range Notes UA (Urinalysis, Dipstix only - w/o micro) Reviewed date:06/04/2025 03:16:43 PM Interpretation: Performing Lab: Notes/Report: COLOR yellow Yellow - Josey - CLARITYclearClear - ClearGLUCOSE-0 - 133 MG/DLALBUMIN-NEG - NEG MG/DLBILIRUBIN- NEG - NEG MG/DLSPECIFIC GRAVITY1.0101.001 - 1.035KETONES-NEG - NEG MG/DLBLOOD, UR-PH, UR5.05 - 9UROBILNOGEN-0.2 - 1 MG/DLNITRITE+NEG - NEGESTERASE (LAMBERT)+NEG - NEG MG/DLCBC AUTO DIFF Reviewed date:07/09/2025 07:38:17 PM Interpretation: Performing Lab: Notes/Report: [facility] ,White Blood Count5.44.0-11.0 10 3/uLRed Blood Count4.794.20-5.40 10 6/uL Qudrghjddm05.512.0-16.0 g/tUAzgqhoaubi90.936.0-48.0 %Mean Corpuscular Pzdliu27.6 81.0-99.0 fLMean Corpuscular Ttksfiamsp02.326.7-34.0 pgMean Corpuscular HGB Conc 33.029.9-35.2 g/dLRed Cell Distribution Width13.111.0-15.0 %Platelet Fhzzo535 150-450 10 3/uLMean Platelet Volume8.59.5-13.5 fLNeutrophils Percent Auto46.4 43.0-75.0 %Lymphocytes Percent Auto36.920.5-60.0 %Monocytes Percent Auto15.51.7- 12.0 %Eosinophils Percent Auto0.60.9-7.0 %Basophils Percent Auto0.20.2-2.0 % Immature Granulocytes Pct Auto0.40.0-0.5 %Neutrophils Absolute Auto2.51.4-6.5 10 3/uLLymphocytes Absolute Auto2.01.2-3.8 10 3/uLMonocytes Absolute Auto0.80.3-0.8 10 3/uLEosinophils Absolute Auto0.00.0-0.7 10 3/uLBasophils Absolute Auto0.00.0- 0.1 10 3/uLImmature Granulocytes Abs Auto0.020.00-0.03 10 3/uLPerforming Lab:see noteML - [facility] LBGLYCOHEMOGLOBIN A1C Reviewed date:07/09/2025 07:38:17 PM Interpretation: Performing Lab: Notes/Report: [facility] ,Glycohemoglobin A1C5.64.5-6.2 % ADA THERAPEUTIC TARGET < 7.0 ADA RECOMMENDED LIMIT 4.0 - 6.0 > 7.0 ACTION SUGGESTED Estimated Average Zpkhbid094Piptyyepzy Lab:see noteML - [facility] LB LIPID PROFILE Reviewed date:07/09/2025 07:38:17 PM Interpretation: Performing Lab: Notes/Report: [facility] ,Nvzzjwhptrcen559<=150 mg/kOPvmmtwlfype399<=200 mg/dLHDL Pdqzebnucnz3638-24 mg/dL <40 mg/dl - HIGH CARDIOVASCULAR RISK > or =60 mg/dl - LOW CARDIOVASCULAR RISK LDL Cholesterol Uatkpzepwz128.0 <100 mg/dl OPTIMAL 100-129 mg/dl NEAR OR ABOVE OPTIMAL 160-189 mg/dl HIGH 130-159 mg/dl BORDERLINE HIGH >190 mg/dl VERY HIGH VLDL OOQJRAYXFRO79.8Chol HDL Ratio3.5 3.3 - 4.4 LOW RISK 4.4 - 7.1 AVERAGE RISK 7.1 - 11.0 MODERATE RISK >11.0 HIGH RISK Performing Lab:see noteML - [facility] LBFREE T3 Reviewed date:07/24/2024 07:34:35 PM Interpretation: Performing Lab: Notes/Report: [facility] ,Free T33.382.18-3.98 pg/mLPerforming Lab:see noteML - [facility] LB T4 Reviewed date:07/24/2024 07:34:35 PM Interpretation: Performing Lab: Notes/Report: [facility] ,T4 Thyroxine9.304.80-13.90 ug/dLPerforming Lab:see noteML - [facility] LBTSH Reviewed date:07/24/2024 07:34:35 PM Interpretation: Performing Lab: Notes/Report: [facility] ,Thyroid Stimulating Hormone0.7350.358-3.740 uIU/mLPerforming Lab:see noteML - [facility] LBUA RANDOM W or MICROSCOPIC Reviewed date:06/04/2025 03:20:05 PM Interpretation: Performing Lab: Notes/Report: [facility] ,Color UrineLT. YELLOWYELLOWClarity UrineCLEARCLEARSpecific [place] Urine1.010 1.005-1.025pH Urine7.05.0-9.0Protein UrineNEGATIVENEG/TRACE mg/dLGlucose Urine UANEGATIVENEGATIVE mg/dLBilirubin UrineNEGATIVENEGATIVEKetones UrineNEGATIVE NEGATIVE mg/dLBlood UrineNEGATIVENEGATIVENitrite UrineNEGATIVENEGATIVE Urobilinogen Urine0.20.2-1.0 EU/dLLeukocyte Esterase UrineSMALLNEGATIVEWBC Urine 0-2NONE SEEN #/HPFRBC Urine0-20-2 #/HPFBacteria UrineTRACENONE SEEN #/HPFMucus UrineTRACENONE SEENSquamous Epithelial Cell UrineRARENONE/RARE #/LPFCrystals Seen?None SeenNone Seen #/HPFCast Seen?NONE SEENNONE SEEN #/LPFUrine Culture IndicatedNOPerforming Lab:see noteML - [facility] LBFREE T3 Reviewed date:07/09/2025 07:38:17 PM Interpretation: Performing Lab: Notes/Report: [facility] ,Free T33.952.18-3.98 pg/mLPerforming Lab:see note - [facility] LB T4 Reviewed date:07/09/2025 07:38:17 PM Interpretation: Performing Lab: Notes/Report: [facility] ,T4 Dgtumnbkz64.404.80-13.90 ug/dLPerforming Lab:see noteML - [facility] LBTSH Reviewed date:07/09/2025 07:38:17 PM Interpretation: Performing Lab: Notes/Report: [facility] ,Thyroid Stimulating Hormone0.2060.358-3.740 uIU/mLPerforming Lab:see note - [facility] LBUA DIP NONAUTO WO MICRO (16387) - IN OFFICE Reviewed date:09/13/2024 02:24:54 PM Interpretation: Performing Lab: Notes/Report: COLORlight yellowCLARITYclearGLUCOSEnegBILIRUBINnegKETONEnegSPECIFIC GRAVITY 1.386RHIXIuxzFN1JUVFDMMouaKIQCNCENRIPOzlyUUPMEYPzgfHJXDTEYGO ESTERASEnegUrine Culture - [facility] Reviewed date:06/08/2025 12:58:00 PM Interpretation: Performing Lab: Notes/Report: [facility] ,Urine Culture - [facility]MCSee Below For Report Urine Culture - [facility] <9,000 colonies/ml mixed Urine Culture - FRMCbacterial skin contaminants Urine Culture - [facility] <9,000 colonies/ml mixed Urine Culture - [facility]2 Days Urine Culture - [facility] <9,000 colonies/ml mixed Urine Culture - [facility] Urine Culture - [facility] <9,000 colonies/ml mixed [facility] <9,000 colonies/ml mixed Urine Culture - [id number] [place] [address] Urine Culture - [facility] <9,000 colonies/ml mixed Performing Lab:see noteML - [facility] LB Reason For Referral No Information Medications Medication SIG (Take, Route, Frequency, Duration) Notes Start Date End Date Status Liothyronine Sodium 5 MCG 1 tablet on an empty stomach Orally Once a day; Duration: 90 days ActiveVitamin CActiveMacrobid 100 MG1 capsule with food Orally every 12 hrs; Duration: 5 day(s)5ActiveLevothyroxine Sodium 88 MCGTAKE 1 TABLET BY MOUTH EVERY DAY; Duration: 90ActivepredniSONE 20 MG2 tablets Orally Once a day; Duration: 5 days5ActiveCholecalciferol 50 MCG (2000 UT)1 capsule Orally Once a dayActiveMyrbetriq 25 MG1 tablet Orally Once a day; Duration: 30 days 5ActivetraMADol HCl 50 MGTAKE 1 TABLET BY MOUTH EVERY 6 HOURS NEEDED FOR PAIN FOR 7 DAYS; Duration: 5ActiverOPINIRole HCl 1 MGTAKE 1 TABLET BY MOUTH 1 TO 3 HOURS BEFORE BEDTIME DAILY; Duration: ActivePantoprazole Sodium 40 MGTAKE 1 TABLET BY MOUTH EVERY DAY; Duration: 90ActiveMacrobid 100 MG1 capsule with food Orally every 12 hrs; Duration: 4Active Social History Tobacco Use: Social History Observation Description Date Details (start date - stop date) Never Smoker NA - NA Tobacco Use/Smoking Question Answer Notes Patient is a nonsmoker Alcohol Screen (Audit-C) Question Answer Notes Did you have a drink containing alcohol in the p ast year? Yes How often did you have 6 or more drinks on one occasion in the past year?Never (0 point)How many drinks did you have on a typical day when you were drinking in the past year?1 or 2 drinks (0 point)How often did you have a drink containing alcohol in the past year?Less than monthly (1 point)Iqfetn0Sijkmfsqlixely NegativeTobacco Control (Standard) Question Answer Notes Tobacco use: Nonsmoker AUDIT-C (Standard) Question Answer Notes Did you have a drink containing alcohol in the p ast year? 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) ActiveconfirmedProblemPrimary osteoarthritis (287085944)Unilateral primary osteoarthritis, right knee (M17.11)ActiveconfirmedProblemPalpitations (51880126) Palpitations (R00.2)ActiveconfirmedProblemOsteoarthritis (567873560) Osteoarthritis (M19.90)ActiveconfirmedProblemCarotid bruit (630659387)Carotid bruit (R09.89)ActiveconfirmedProblemBenign essential hypertension (4140662) Benign essential hypertension (I10)ActiveconfirmedProblemRestless legs (80497792)RLS (restless legs syndrome) (G25.81)ActiveconfirmedProblem Osteoporosis (84593483)Osteoporosis (M81.0)ActiveconfirmedProblemAcquired hypothyroidism (036487510)Acquired hypothyroidism (E03.9)ActiveconfirmedProblem Acute blood loss anemia (187172297)Acute blood loss anemia (D62)Activeconfirmed ProblemLaboratory test result abnormal (989079362)Abnormal laboratory test (R89.9)ActiveconfirmedProblemThrush (66968973)Thrush (B37.0)Activeconfirmed ProblemSeasonal allergic rhinitis (400209986)Allergic rhinitis, seasonal (J30.2) ActiveconfirmedProblemBladder spasm (562574922)Bladder spasm (N32.89)Active confirmedProblemCervical radiculopathy (40020321)Cervical radicular pain (M54.12)ActiveconfirmedProblemDiverticular disease of colon (642747313)Colon, diverticulosis (K57.30)ActiveconfirmedProblemType II diabetes mellitus without complication (420197996)Diabetes mellitus type 2, noninsulin dependent (E11.9) ActiveconfirmedProblemHeart murmur (11073444)Cardiac murmur (R01.1)Active confirmedProblemFibrocystic breast changes (40226856)Fibrocystic breast disease (N60.19)ActiveconfirmedProblemGastro-esophageal reflux disease (419425957) Gastro-esophageal reflux disease (K21.9)ActiveconfirmedProblemShoulder impingement syndrome (049588838)Shoulder impingement syndrome (M75.40)Active confirmedProblemAt risk for falls (503284431)At risk for falls (Z91.81)Active confirmedProblemCervicovaginal cytology: Low grade squamous intraepithelial lesion (255977607)Pap smear abnormality of cervix with LGSIL (R87.612)Active confirmedProblemhypercholesterolemia (disorder) (98143607)Hypercholesteremia (E78.00)ActiveconfirmedProblemPure hypercholesterolemia (314910375)Pure hypercholesterolemia, unspecified (E78.00)ActiveconfirmedProblemDisorder of sacrum (44432597)Low back derangement syndrome (M53.86)ActiveconfirmedProblem Chronic low back pain (finding) (436135308)Chronic midline low back pain without sciatica (M54.50)Activeconfirmed Vital Signs Blood pressure diastolic 90 mm Hg 05/19/2025 Iwmmme46 in05/19/2025lood pressure pwahwnzh230 mm Hg05/19/20257920Rvwczg722.8 lbs 05/19/2025BMI26.42 kg/m205/19/2025 Encounters Encounter Location Date Provider Diagnosis [facility] [address] [place] [address] 05/19/2025 Siva Hoy Benign essential hypertension I10 ; Low back derangement syndrome M53.86 and Low back pain at multiple sites M54.50 [facility] [address] [place] [address] 09/13/2024 Siva Hoy Bladder spasm N32.89 [facility] [address] [place] [address] 07/24/2024 Gabriella Cervantes [facility] [place] [address] 08/13/2024oug [facility] [place] [address]/oug [facility] [place] [address]/Doug [facility] [place] [address]/05/2025Doug HoyBladder spasm N32.89 [facility] [place] [address] 06/08/2025[facility] [facility] [place] [address]/[facility] [place] [address]/Doug HoyDiabetes mellitus type 2, noninsulin dependent E11.9 ; Iron deficiency E61.1 ; Fatigue R53.83 ; Screening for colon cancer Z12.11 and Hypercholesteremia E78.00[place] [address] [place] [address]/Doug Hoy Assessments Encounter Date Diagnosis (ICD Code) Assessment Notes Treatment Notes Treatment Clinical Notes Section Notes 09/13/2024 Bladder spasm (ICD-10 - N32.89) 05/19/2025enign essential hypertension (ICD-10 - I10)05/19/2025Low back derangement syndrome (ICD-10 - M53.86)06/03/2025ladder spasm (ICD-10 - N32.89) 07/09/2025Diabetes mellitus type 2, noninsulin dependent (ICD-10 - E11.9) 07/09/2025Iron deficiency (ICD-10 - E61.1)07/09/2025Fatigue (ICD-10 - R53.83) 05/19/2025Low back pain at multiple sites (ICD-10 - M54.50)07/09/2025Screening for colon cancer (ICD-10 - Z12.11)07/09/2025Hypercholesteremia (ICD-10 - E78.00) Plan Of Treatment Pending [...] Date [employer] MEDICARE ADV PLAN [address] [place] [address] [phone] [id number] [facility] Self - patient is [...] History Surgery Date(Month/Year) Rt. Hip fracture repair RTKARevision of left elbow surgeryFracture left elbow with surgical repair 09/11/2023hysterectomyHospitalization History Reason Date(Month/Year) GI Bleed 2023
--- OUTSIDE RECORDS SUMMARY | 2025-07-16 14:57 | XMS_ITS | CCD ---
Author Organization [facility] CliniSymd Care Team Providers Care Brush Fabrication Supervisor Name Role Phone RASHEED TOWNSENDORY Admitting Unavailable [...] ABIODUN Admitting Unavailable CIARA GONZALEZ Referring Unavailable AR Procedure Practitioner Unavailab kaur EBRAHEIM, ABIODUN Surgeon [...] Unavailable Nona Mcknight MD Primary Care Provider [phone] Nona Mcknight MD Primary Care Provider [phone] TONY COMBS Admitting Unavailable TONY COMBS Attending [...] Unavailable Nona Mcknight MD Primary Care Provider [phone] HOY, NONA M Primary Care Unavailable WOLFGANG [...] CHOU Referring Unavailable ROMINA DARNELL Attending Unavailable PETRY, NONA M Primary Care Unavailable WOLFGANG CHOU Referring Unavailable ROMINA DARNELL Attending Unavailable Siva Mcknightlas Primary Care Physician Nilam Garnica Attending Unavailable Lonny VASQUEZ Attending Unavailable Nona Mcknight MD Attending Provider Nona Mcknight Attending Unavailable Nona Mcknight Admitting Unavailable Allergies Allergy ClassificationReported Allergen(s)Allergy TypeDate of OnsetReaction(s) Facility (5 sources)Amoxicillin; Translations: [Unknown]Drug Hpigbzk98-68-4506Mbs [facility] Repository (4 sources)Codeine; Translations: [CODEINE]Drug Axrqatm58-12-0185Olx [facility] Repository (1 source)Penicillins (Antibiotic)Drug allergy (disorder)30-32-8399Dka [facility] Repository (2 sources)Sulfonamides (Antibiotic)Drug allergy (disorder)05-90-8153Tdf [facility] Repository (16 sources)AmoxicillinDrug Cjbssrh57-21-4651XvxwZhyrPghzby (20 sources)Codeine; Translations: [codeine]Drug Bjkbfqr06-55-9930Qkcsrq Status Change, Near syncope (disorder)[facility] (5 sources)Leucine; Translations: [NICKEL]Drug Eingtea54-70-3752Mjl [facility] Repository (1 source)PenicillinsDrug allergy (disorder)14-88-7647Pzz [facility] (1 source)Tylenol-Codeine #3Drug allergy (disorder)06-10-7521Bqi [facility] (14 sources)nickelDrug Afrsszm92-05-9915[facility] (2 sources)Sulfonamides (Antibiotic); Translations: [sulfa drugs]Propensity to adverse reactions to drugExecutive [facility]rology of [facility] L[facility] Medications Current Medications MedicationDrug Class(es)DatesSig (Normalized)Sig (Original)8 hr acetaminophen 650 mg extended release oral tablet (12 sources)Start: 77-19-5575cpeo 1 tablet by mouth every eight hours acetaminophen (TYLENOL ARTHRITIS PAIN) 650 mg CR tablet Take 650 mg by mouth every 8 hours. 09/27/2023 ActiveComment on above:Take 650 mg by mouth every 8 hours.azithromycin 250 mg oral tablet (2 sources)Macrolide AntimicrobialStart: 04-83-3065cuoafbnxhipd (ZITHROMAX) 250 MG tablet Two at first, then one daily . 6 tablet 0 04/06/2019 ActiveB cmplx 4/vit D3/C/folic/zinc (VITAL-D RX ORAL) (12 sources)B cmplx 4/vit D3/C/folic/zinc (VITAL-D RX ORAL) Take by mouth. ActiveB cmplx 4/vit D3/C/folic/zinc (VITAL-D RX ORAL) Take by mouth. 0 Active Comment on above:Take by mouth.Calcium Citrate (12 sources)take 2 tablets by mouth once dailyCALCIUM CITRATE ORAL Take 2 tablets by mouth once daily. Activetake 2 tablets by mouth once dailyCALCIUM CITRATE ORAL Take 2 tablets by mouth once daily. 0 ActiveComment on above:Take 2 tablets by mouth once daily.calcium/mag oxide/vitamin d3(CORAL CALCIUM PLUS 250 MG-125 MG-200 UNIT CAP) (17 sources)Start: 05-31-7050bhlzpjc/mag oxide/vitamin d3(CORAL CALCIUM PLUS 250 MG-125 MG-200 UNIT CAP) 0 12/11/2007 ActiveStart: 16-74-4032odtokmi/mag oxide/vitamin d3(CORAL CALCIUM PLUS 250 MG-125 MG-200 UNIT CAP)cholecalciferol, vitamin D3, (VITAMIN D3 ORAL) (12 sources)take 1 tablet by mouth once dailycholecalciferol, vitamin D3, (VITAMIN D3 ORAL) Take 1 tablet by mouth once daily. Activetake 1 tablet by mouth once dailycholecalciferol, vitamin D3, (VITAMIN D3 ORAL) Take 1 tablet by mouth once daily. 0 ActiveComment on above:Take 1 tablet by mouth once daily. levothyroxine (16 sources)l-ThyroxineStart: 32-73-1838lwhh 88 ug by mouth once daily levothyroxine 88 mcg, Oral, Daily, Refills(s) 0 Start Date: 09/27/23 Status: OrderedStart: 42-31-6408hdui 1 tablet by mouth oncelevothyroxine (SYNTHROID) 88 mcg tablet Take 1 tablet by mouth every afternoon. 07/21/2023 ActiveComment on above:Take 1 tablet by mouth every afternoon.liothyronine sodium 0.005 mg oral tablet (16 sources)l-TriiodothyronineStart: 03-54-7943leur 1 tablet by mouth once daily liothyronine 5 mcg Tab 5 mcg = 1 tab(s), Oral, Daily, Refills(s) 0 Start Date: 09/27/23 Status: OrderedStart: 61-68-6780rtmqumududzo (CYTOMEL) 5 mcg tablet 06/29/2023 Activemultivitamins w-minerals/lut(CENTRAL SRIKANTH SENIOR-LUTEIN TAB) (17 sources)Start: 25-18-6707ufncsgbsurias w-minerals/lut(CENTRAL SRIKANTH SENIOR- LUTEIN TAB) 0 12/11/2007 ActiveStart: 74-71-7122fhimvubmhjuyl w- minerals/lut(CENTRAL SRIKANTH SENIOR-LUTEIN TAB)ondansetron 8 mg disintegrating oral tablet (13 sources)Serotonin-3 Receptor AntagonistStart: 84-61-6131bavk 1 tablet by mouth every eight hours as needed for nauseaondansetron orally disintegrating (ZOFRAN ODT) 8 mg disintegrating tablet Indications: prevention of post- operative nausea and vomiting Take 1 tablet by mouth every 8 hours as needed for nausea/vomiting. 6 tablet 09/12/2023 ActiveComment on above:Take 1 tablet by mouth every 8 hours as needed for nausea/vomiting.oxybutynin chloride 2.5 mg oral tablet (15 sources)Cholinergic Muscarinic AntagonistStart: 84-91-2028khps 1 tablet by mouth onceoxybutynin (DITROPAN) 2.5 mg tablet Take 1 tablet by mouth every afternoon. 08/21/2023 ActiveComment on above:Take 1 tablet by mouth every afternoon.pantoprazole 40 mg delayed release oral tablet (1 source)Proton Pump InhibitorStart: 12-56-5392elbp 1 tablet by mouth once dailyPantoprazole [address] Tab 40 mg = 1 tab(s), Oral, Daily, Refills(s) 0 Start Date: 07/05/24 Status: Orderedpseudoephedrine hydrochloride 30 mg oral tablet (17 sources)alpha-Adrenergic AgonistStart: 40-95-4309OOQYQQVAAMZNCKB 30 MG TAB 0 11/09/2007 ActiverOPINIRole 1 mg oral tablet (13 sources)Nonergot Dopamine AgonistStart: 74-81-3259uxla 1 tablet by mouth once dailyropinirole 1 mg Tab 1 mg = 1 tab(s), Oral, Daily, Refills(s) 0 Start Date: 07/05/24 Status: OrderedStart: 30-54-7208ojku 1 tablet by mouth once daily at bedtimerOPINIRole (REQUIP) 0.5 mg tablet 1 tablet 1 to 3 hours before bedtime Orally Once a day for 30 days 10/04/2023 ActiveComment on above:1 tablet 1 to 3 hours before bedtime Orally Once a day for 30 daystraMADol hydrochloride 50 mg oral tablet (1 source)Opioid AgonistStart: 40-28-3740arup 1 tablet by mouth every six hours as needed for paintraMADOL 50 mg Tab 50 mg = 1 tab(s), Oral, q6hr, PRN as needed for pain, Refills(s) 0 Start Date: 07/05/24 Status: OrderedVitamin D3 (1 source)Start: 01-64-1249ywyo 2000 [IU] by mouth once dailyVitamin D3 2,000 unit(s), Oral, Daily, Refills(s) 0 Start Date: 09/27/23 Status: Ordered Completed/Discontinued Medications MedicationDrug Class(es)DatesSig (Normalized)Sig (Original)cephalexin 500 mg oral capsule (1 source)Cephalosporin AntibacterialStart: 10-30-2023 End: 29-24-9742auod 1 capsule by mouth three times dailycephALEXin (KEFLEX) 500 mg capsule Take 1 capsule by mouth three times a day for 7 days. 21 capsule0 10/30/2023 11/06/2023 ExpiredComment on above:Take 1 capsule by mouth three times a day for 7 days.estradiol 0.025 mg vaginal insert (3 sources)EstrogenStart: 48-99-5363dunmqeumc(VAGIFEM 25 MCG VAGINAL TAB) Insert one(1) tablet vaginally twice weekly. 90 days 3 01/23/2009 ActiveComment on above:Insert one(1) tablet vaginally twice weekly.glucosamine hydrochloride 50 mg/ml / methylsulfonylmethane 16.7 mg/ml oral solution (3 sources)Start: 16-31-3714lcxgivxjuma hcl/msm(GLUCOSAMINE MSM 1,500 MG-500 MG/30 ML ORAL LIQUID)Grape Seed Extract (14 sources)Start: 69-78-3812iobtn seed extract(GRAPE SEED 25 MG CAP)grape seed extract (GRAPE SEED ORAL) Take 1 tablet by mouth as directed. Activegrape seed extract (GRAPE SEED ORAL) Take 1 tablet by mouth as directed. 0 ActiveComment on above:Take 1 tablet by mouth as directed.ibuprofen 600 mg oral tablet (3 sources)Nonsteroidal Anti-inflammatory DrugStart: 41-99-2551gamt 1 tablet by mouth every six hours as neededIBUPROFEN 600 MG TAB 1 Tab ORAL EVERY 6 HOURS NEEDED 30 5 12/27/2007 ActiveComment on above:1 Tab ORAL EVERY 6 HOURS NEEDED 24 hr mirabegron 25 mg extended release oral tablet (1 source)beta3-Adrenergic AgonistStart: 09-25-6256gcep 1 tablet by mouth once MYRBETRIQ 25 mg Tb24 Take 1 tablet by mouth every afternoon. 0 05/31/2023 Active Comment on above:Take 1 tablet by mouth every afternoon.ubidecarenone 10 mg oral capsule (3 sources)Start: 43-55-9213ntyxbxryuwuph(CO Q-10 10 MG CAP) Problems Active Problems Problem ClassificationProblemDateDocumented DateEpisodic/ChronicConduction disorders (1 source)Unspecified right bundle-branch block; Translations: [UNSPECIFIED RIGHT BUNDLE-BRANCH BLOCK]Onset: 44-53-7368GjhtfzaKupmdqtv mellitus without complication (1 source)Diabetes xsygnygl00-96-9576SburnitWylsizeff of lipid metabolism (2 sources)Hyperlipidemia, unspecified; Translations: [Pure hypercholesterolemia]Onset: 789945-97-1022EconodzYbscouhrchygse and diverticulitis (1 source)Diverticular disease of vomnz49-05-6003VqoqsuiSqtvxuejti disorders (16 sources)Gastro-esophageal reflux disease without esophagitis; Translations: [Gastroesophageal reflux disease without esophagitis]Onset: ChronicEssential hypertension (1 source)Benign essential cuqldatmivwl99-62-4059RrbphgwKfjxeowf cause codes: Fall (1 source)Fall (on) (from) other stairs and steps, initial encounter; Translations: [FALL (ON) (FROM) OTHER STAIRS AND STEPS, INITIAL ENCOUNTER]Onset: 79-97-7472Rezngjou cause codes: Place of occurrence (1 source)Garden or yard of other non-institutional residence as the place of occurrence of the external cause; Translations: [GARDEN OR YARD OF NON- INSTITUTIONAL RESIDENCE PLACE]Onset: 20-22-5752Gxrpywgk of neck of femur (hip) (7 sources)Nondisplaced intertrochanteric fracture of right femur, initial encounter for closed fracture; Translations: [Displaced intertrochanteric fracture of right femur, subsequent encounter for closed fracture with routine healing]Onset: 84-08-9760VuftsphcWsnfn valve disorders (1 source)Heart qecjal94-96-7466UdlcktzmLzjksrwqnlnj breast conditions (1 source)Fibrocystic disease of -65-5745OvznebcZjczkoqjmoz deficiencies (1 source)Vitamin D deficiency, unspecified; Translations: [VITAMIN D DEFICIENCY UNSPECIFIED]Onset: 18-37-0231NbqqbeiRtowlvnkoquxpv (16 sources)Bilateral primary osteoarthritis of hip; Translations: [Arthritis of shoulder region joint]Onset: 424265-92-3465NrotutjEondhisovyql (2 sources)Age-related osteoporosis without current pathological fracture; Translations: [Osteoporosis]Onset: 712049-44-4217VcuufzgTlbpd acquired deformities (1 source)Scoliosis, unspecified; Translations: [SCOLIOSIS, UNSPECIFIED]Onset: 40-31-1170UleeoufGwtui acquired deformities (1 source)Contracture of joint of shoulder region; Translations: [Contracture, left shoulder]19-41-5783ZjfzbixTerbg acquired deformities (1 source)Contracture, left shoulder; Translations: [Contracture of shoulder, left]Onset: 94-98-9040MpxyjluFsswv connective tissue disease (1 source)Presence of right artificial knee joint; Translations: [PRESENCE OF RIGHT ARTIFICIAL KNEE JOINT]Onset: 70-61-6497XdhfclxXqeur connective tissue disease (20 sources)History of reverse prosthetic total arthroplasty of left shoulder; Translations: [Presence of left artificial shoulder joint]Onset: 09-11-2023 07-03-9082SeoxunrPaqxp connective tissue disease (3 sources)Presence of left artificial shoulder joint; Translations: [S/P reverse total shoulder arthroplasty,left]Onset: 30-99-0497BipoqfpKzjzi connective tissue disease (1 source)Arthrodesis status; Translations: [ARTHRODESIS STATUS]Onset: 06-23-3214AsyvjlykGjtrt diseases of bladder and urethra (14 sources)Overactive bladder; Translations: [Overactive bladder]Onset: 991165-88-0952ZsgyhffVrcnb gastrointestinal disorders (1 source)History of gastrointestinal -13-0000EjwehkoiXqjal gastrointestinal disorders (1 source)Occult blood in kuksfp38-59-9760UpnbeoqvInsrv hereditary and degenerative nervous system conditions (1 source)Restless ules21-23-7895QokobobNsqli nervous system disorders (1 source)Other chronic pain; Translations: [Chronic right shoulder pain]Onset: 48-87-7827CeikfovPxhxz nervous system disorders (1 source)Chronic pain irgocnhq26-11-9760LvnvtkaOykzz non-traumatic joint disorders (2 sources)Other specific arthropathies, not elsewhere classified, left shoulder; Translations: [Rotator cuff tear arthropathy of left shoulder]Onset: 95-52-2874VwacjmeYumry non-traumatic joint disorders (2 sources)Chronic pain of right upper limb; Translations: [Pain in right shoulder]07-32-1404YjnlkhojTxnzo nutritional; endocrine; and metabolic disorders (1 source)Bnkwxbswpy75-29-7555TdmstqeoOuyyz upper respiratory disease (1 source)Seasonal allergic atztfelb34-21-4840InsczlnCdagwjbk codes; unclassified (1 source)Pain; Translations: [Pain, unspecified]46-40-1720WcyfecbzPhbskzdqpfg; intervertebral disc disorders; other back problems (3 sources)Spondylosis, unspecified; Translations: [Other cervical disc degeneration, unspecified cervical region]Onset: 331997-77-5661Cpifosi Comment on above:Outside Source Comment: Overview: Added automatically from request for surgery [id number]; intervertebral disc disorders; other back problems (6 sources)Cervicalgia; Translations: [Pain in thoracic spine]Onset: 10-20-2022 EpisodicThyroid disorders (15 sources)Hypothyroidism; Translations: [Hypothyroidism, unspecified]Onset: 116786-88-3595MvwcillRfjsdpqzydjp (2 sources)DXOnset: 07-26-2018 Past or Other Problems Problem ClassificationProblemDateDocumented DateEpisodic/ChronicAllergic reactions (3 sources)Allergy status to narcotic agent status; Translations: [Allergy status to sulfonamides status]Onset: 16-40-9727LxbawybcLoubbokbmkcm of device; implant or graft (14 sources)Disorders of musculoskeletal implants and repairs; Translations: [Other mechanical complication of other internal orthopedic devices, implants and grafts, initial encounter]Onset: 789985-86-2999WqqktukrVtqubtisjp and other anemia (1 source)Anemia, unspecified; Translations: [ANEMIA UNSPECIFIED]Onset: 39-59-4293JqaffawgLuzareeh mellitus without complication (1 source)Other abnormal glucose; Translations: [OTHER ABNORMAL GLUCOSE]Onset: 37-41-8425KzcjvhwxEbrfbely of upper limb (5 sources)Closed fracture of acromial process of scapula; Translations: [Displaced fracture of acromial process, unspecified shoulder, sequela]Onset: 611788-85-0497QqithpayOgnsobqgkwtlu and screening for infectious disease (1 source)Encounter for immunization; Translations: [ENCOUNTER FOR IMMUNIZATION] Onset: 72-14-8804TdrzndpcYocuu connective tissue disease (4 sources)Other specified soft tissue disorders; Translations: [OTHER SPECIFIED SOFT TISSUE DISORDERS]Onset: 14-77-7513CenwfgmnZfpnj connective tissue disease (20 sources)Rotator cuff arthropathy of left shoulder; Translations: [Unspecified rotator cuff tear or rupture of left shoulder, not specified as traumatic]Onset: 062637-89-8721PmcglllyPogjt connective tissue disease (20 sources)Nontraumatic complete rupture of rotator cuff of left shoulder; Translations: [Complete rotator cuff tear or rupture of left shoulder, not specified as traumatic]Onset: 145407-06-4987FugezlrkOmybe connective tissue disease (2 sources)Unspecified rotator cuff tear or rupture of left shoulder, not specified as traumatic; Translations: [Rotator cuff tear arthropathy of left shoulder]Onset: 08-15-1385DoiosmekPsblv connective tissue disease (2 sources)Complete rotator cuff tear or rupture of left shoulder, not specified as traumatic; Translations: [Nontraumatic complete tear of rotator cuff, left] Onset: 91-47-0964XjjgggdzSnszv injuries and conditions due to external causes (3 sources)Unspecified injury of muscle, fascia and tendon of long head of biceps, left arm, initial encounter; Translations: [Shoulder and upper arm injury]Onset: 337313-16-7031ZjsfkdnaMfutd non-traumatic joint disorders (20 sources)Decreased range of shoulder movement; Translations: [Stiffness of left shoulder, not elsewhere classified]Onset: 040024-72-0677DhhdqadqZumkx non-traumatic joint disorders (1 source)Pain in right shoulder; Translations: [Chronic right shoulder pain] Onset: 60-68-2760VreswqleOfpka skin disorders (4 sources)Alopecia mucinosa; Translations: [ALOPECIA MUCINOSA]Onset: 03-03-2022 EpisodicOther upper respiratory infections (1 source)Acute frontal sinusitis; Translations: [Acute non-recurrent frontal sinusitis]EpisodicResidual codes; unclassified (1 source)Acquired absence of both cervix and uterus; Translations: [ACQUIRED ABSENCE OF BOTH CERVIX AND UTERUS]Onset: 49-79-0692TtswrlmsVeujslzu codes; unclassified (1 source)Pain, unspecified; Translations: [Pain]Onset: 82-10-6397Jmgztsmf Results Test NameValueInterpretationReference RangeFacilityUrine Cultureon 06-04-2025 Bacteria identified Cx Nom (U)<9,000 colonies/ml mixed bacterial skin contaminants 2 Days PERFORMED BY: [facility] [address] [place] [address] PATHOLOGIST TRAY WORKER JOHN LUCAS M.D.NormalThe [facility] Physician GroupComment on above: Performed By: #### CUU #### [facility] [address] [place] [address] USAXR SHLDR >/=3V AP/JULIETA AP/OTHR LTon 62-07-2544SX SHLDR >/=3V AP/JULIETA AP/OTHR LT* * *Final Report* * * DATE OF [...] are aortic calcifications. IMPRESSION: NO SIGNIFICANT CHANGE. Stage Hand: WILLIAM Transcribe Date/Time: Apr 25 2024 11:12P Dictated by : ADITI FERNANDEZ MD This examination was interpreted and the report reviewed and electronically signed by: ADITI FERNANDEZ MD on Apr 25 2024 11:16PM EST [id number] Clinic Mercy HospitalXR Shoulder - left 3 Views on 73-70-6602FKGTAMGYUY: NO SIGNIFICANT CHANGE. Stage Hand: PSCB Transcribe Date/Time: Apr 25 2024 11:12P Dictated by : ADITI FERNANDEZ MD This examination was interpreted and the report reviewed and electronically signed by: ADITI FERNANDEZ MD on Apr 25 2024 11:16PM EST DIVISION OF RADIOLOGY* * *Final Report* * * DATE OF [...] spine. There are aortic calcifications. DIVISION OF RADIOLOGYProvider, [facility] - 04/25/2024 * * *Final Report* * [...] aortic calcifications. IMPRESSION IMPRESSION: NO SIGNIFICANT CHANGE. Stage Hand: PSCB Transcribe Date/Time: Apr 25 2024 11:12P Dictated by : ADITI FERNANDEZ MD This examination was interpreted and the report reviewed and electronically signed by: ADITI FERNANDEZ MD on Apr 25 2024 11:16PM [facility]Rad[facility] observation (narrative)[facility]XR Shoulder - left 3 ViewsOrdered By: Cc Provider on 06-36-3832Pkzsfnwgq Clinic CNOVon 64-55-2200GQRPXylndr Visit (ORTHMN) QING FISCHER ([id number]) 1945 F [place] Date Time Provider Department 01/11/24 1:40 PM WOLFGANG CHOU During your visit today, we recorded the following information about you: Weight Height 60.8 kg 1.524 m Wolfgang Chou PA-C 01/11/2024 3:50 PM Signed Patient Name: QING FISCHER Clinic No: [id number] Date of Service: January 11, 2024 [facility] Patient returns for follow up approximately 4 [...] sooner. This note was partially generated using Splurgy recognition system and as such may contain [...] GENERAL 3V OR MORE AP/TRUE AP/OTHER LEFT [[id number]] Order #: [id number] FUTURE Prescriptions as of 01/11/2024 - CALCIUM [...] months (around 04/11/2024) for Imaging Before Appointment [facility]. Follow-up and Disposition History for Encounter Date Provider Department Center 01/11/2024 [id number], JACOB ORTHMN [facility] Encounter Status:Closed by WOLFGANG CHOU on 01/11/24NormalCMercy Health – The [facility] HospitalXR SHLDR >/=3V AP/JULIETA AP/OTHR LTon 77-10-1219RR SHLDR >/=3V AP/JULIETA AP/OTHR LT* * *Final Report* * * DATE OF [...] shoulder arthroplasty with no fracture or osteolysis. Stage Hand: WorldWide BiggiesB Transcribe Date/Time: Jan 11 2024 4:15P Dictated by : ERNESTINA WEAVER MD This examination was interpreted and the report reviewed and electronically signed by: ERNESTINA WEAVER MD on Jan 11 2024 4:18PM EST [id number] Clinic Mercy HospitalXR Shoulder - left 3 Views on 42-22-5992Widrzwaeb [id number] ID: [id number] Author: ROMINA DARNELL, OTR/L Service: ? Author Type: Occupational Therapist Type: [id number] Filed: 12/26/2023 15:55 Note Text: [facility] Occupational Therapy Plan of Care Certification Patient Name: Qing Fischer : 1945 [facility] #: [id number] Date: 12/26/2023 To: Wolfgang Chou PA-C From Therapist: ELSY Olsen/Cristopher RE: Patient Certification/ Recertification Your review, approval and electronic signature are required in order to comply with Payor: [facility] [employer] / Plan: [employer] MEDICARE ADVANTAGE HMO / [...] Planned: 2 Planned Treatment Interventions: Therapeutic exercise (27352), Manual therapy (30347), Self-longterm management (80513), Patient/Family/Caregiver Education For further details regarding this patient refer to the Occupational Therapy electronically documented visit dated 12/26/2023. Provider Attestation I have reviewed the treatment plan for Qing Fischer, CCF# [id number] for the period of 12/14/23 -- 01/25/24, established on 12/26/2023. Signature certifies the need for therapy services.NormalCleveland Clinic Mercy HospitalCNTHERAPYon 19-43-3152QIYBHAFQIVE/PT/Speech Visit (LOOTRM) AALIYAHQING ([id number]) 1945 F [place] Date Time Provider Department 12/26/23 2:45 PM ROMINA DARNELL Date Time Provider Department Center 12/26/2023 2:45 PM [id number] DARNELL Reason for Visit: OT Discharge [750] [...] UNIT CAP) - PSEUDOEPHEDRINE 30 MG TAB NormalCleveland Clinic Mercy HospitalCNTHERAPYon 95-56-9599WHLISTHFNOF/PT/Speech Visit (ZAHIRA) QING FISCHER ([id number]) 1945 F [place] Date Time Provider Department 12/19/23 2:45 PM ROMINA DARNELL Date Time Provider Department Center 12/19/2023 2:45 PM [id number] DARNELL Reason for Visit: Occupational Therapy [504] [...] UNIT CAP) - PSEUDOEPHEDRINE 30 MG TAB [facility] CenterCNTHERAPYon 71-11-5954QPQPTAVXPQA/PT/Speech Visit (LOOTRM) QING FISCHER ([id number]) 1945 F [place] Date Time Provider Department 12/12/23 2:45 PM ROMINA DARNELL Date Time Provider Department Center 12/12/2023 2:45 PM [id number] DARNELL Reason for Visit: Occupational Therapy [504] [...] UNIT CAP) - PSEUDOEPHEDRINE 30 MG TAB NormalCleveland Clinic Mercy HospitalCNTHERAPYon 38-27-8843UZROYMMEHSD/PT/Speech Visit (DIONOTRLesley) QING FISCHER ([id number]) 1945 F [place] Date Time Provider Department 12/05/23 2:45 PM ROMINA DARNELL Date Time Provider Department [place] 12/05/2023 2:45 PM [id number]-NGDVCKGWROMINA DARNELL Reason for Visit: Occupational Therapy [504] [...] by Romina Darnell OTR/Cristopher on 12/05/2023 3:30 PMNormalCleveland Clinic Mercy HospitalCNTHERAPYon 11-28-2023 CNTHERAPYOT/PT/Speech Visit (ZAHIRA) QING FISCHER ([id number]) 1945 F Date Time Provider Department 11/28/23 2:00 PM ROMINA DARNELL Date Time Provider Department Center 11/28/2023 2:00 PM [id number]-IWCKOOQQROMINA DARNELL Kady Alexander Reason for Visit: Occupational Therapy [504] [...] UNIT CAP) - PSEUDOEPHEDRINE 30 MG TAB NormalCleveland Clinic Mercy HospitalCNTHERAPYon 24-51-2068RWYKNRNSQMA/PT/Speech Visit (DIONOTRM) QING FISCHER ([id number]) 1945 F [place] Date Time Provider Department 11/21/23 2:45 PM ROMINA DARNELL Date Time Provider Department Center 11/21/2023 2:45 PM [id number]-QMAQVNPHROMINA DARNELL Reason for Visit: OT Progress Note [...] ADELAIDA - Fully Assessed Prescriptions as of 11/21/2023 [...] UNIT CAP) - PSEUDOEPHEDRINE 30 MG TAB [facility] CenterCNTHERAPYon 13-63-3592OXFGSYKNKIM/PT/Speech Visit (ZAHIRA) QING FISCHER ([id number]) 1945 F Date Time Provider Department 11/14/23 2:45 PM ROMINA DARNELL Date Time Provider Department Center 11/14/2023 2:45 PM [id number]-SNGKNPYSROMINA DARNELL Reason for Visit: Occupational Therapy [504] [...] UNIT CAP) - PSEUDOEPHEDRINE 30 MG TAB [facility] HospitalOVon 21-14-3789POYVHichsj Visit (ORTHBE) AALIYAHQING DURAN ([id number]) 1945 F LV Date Time Provider Department 11/09/23 10:15 AM WOLFGANG CHOU During your visit today, we recorded the following information about you: Wolfgang Chou PA-C 11/27/2023 1:57 PM Signed Patient Name: QING FISCHER [facility] No: [id number] Date of Service: November 09, 2023 [facility] Postoperative patient presents for suture removal [...] symptoms. This note was partially generated using Splurgy recognition system and as such may contain [...] GENERAL 3V OR MORE AP/TRUE AP/OTHER LEFT [[id number]] Order #: [id number] FUTURE CONSULT TO MACHINE STEMMER [19991003] Order #: [id number]: 1 FUTURE Prescriptions as of 11/27/2023 - [...] Follow-up and Disposition History (more content not included)...NormalCleveland Clinic Mercy HospitalXR SHLDR >/=3V AP/JULIETA AP/OTHR LTon 02-86-5789GL SHLDR >/=3V AP/JULIETA AP/OTHR LT* * *Final Report* * * DATE OF [...] limits. IMPRESSION: 1. Intact left shoulder arthroplasty Stage Hand: WILLIAM Transcribe Date/Time: Nov 09 2023 12:31P Dictated by : MAGDI ELLISON MD This examination was interpreted and the report reviewed and electronically signed by: MAGDI ELLISON MD on Nov 09 2023 12:33PM EST [id number] Clinic Mercy HospitalXR Shoulder - left 3 Views on 81-04-2608Rnwryygvl ClinicCNTHERAPYon 61-29-3598QPEYGQAFOLZ/PT/Speech Visit (ZAHIRA) QING FISCHER ([id number]) 1945 F LV Date Time Provider Department 11/06/23 2:00 PM ROMINA DARNELL Date Time Provider Department [place] 11/06/2023 2:00 PM [id number]-WVAAVMSTROMINA DARNELL Reason for Visit: Occupational Therapy [504] [...] Date Reviewed: 10/30/2023 Reviewed by: Nallely Gaston, ADELAIDA - Fully Assessed Prescriptions as of 11/06/2023 [...] 1 OF 2) last updated by Romina Darnell, OTR/L on 11/06/2023 2:52 PMNormalBellevue Hospital Ulloa 78-98-7956CEYBR MCPHERSON ID: [id number] Author: TONY COMBS MD Service: Orthopaedic Surgery Author Type: Fellow Type: Brief Op Note Filed: 10/30/2023 08:52 Note Text: Attestation signed by Tony Combs MD at 10/30/2023 8:52 AM Tony Combs MD BRIEF OP NOTE Patient Name: Qing Fischer Log ID: [id number] Surgery Date: 10/30/2023 Pre-Op/Pre-Procedure Diagnosis: Exposed orthopaedic hardware (HCC) [T84.498A] Post-Op/Post-Procedure Diagnosis: Same Surgeon(s) and Case Sealer(s): Surgeon(s) and Role: * Tony Combs MD [...] MD Date: October 30, 2023 Time: 8:32 [facility] HospitalTORY PHYSICALon 32-25-4921UYNSBJU PHYSICALHNO ID: [id number] Author: TONY COMBS MD Service: Orthopaedic Surgery [...] Peralta MD Resident Physician Orthopaedic Surgery Pager: [phone] Email: [email or web address] Between 5PM to 7AM, or if urgent, please page the orthopaedic on-call resident at: [phone] ([phone]) for [facility] patients [address] for [facility] patients [address] for [facility] patients [address] for [facility] patients [address] for [facility] patientsMercy Health Kings Mills HospitalOPERATIVE NOon 69-97-6373DHWQPGFDG NOHNO ID: [id number] Author: TONY COMBS MD Service: Orthopaedic Surgery Author Type: Physician Type: Operative Report Filed: 10/31/2023 12:27 Note Text: [facility] - Operative Report QING FISCHER Lesley : 1945 AGE: 78. SEX: F PATIENT TYPE: A HOSP SVC: [facility] LOCATION: [facility] ATTENDING PHYSICIAN: Tony Combs M.D. CSN NUMBER: [id number] DATE OF SURGERY/PROCEDURE: 10/30/2023 INCISION/PROCEDURE START TIME: 0810. INCISION CLOSE/PROCEDURE END TIME: 08. PREOPERATIVE DIAGNOSIS: [...] shoulder replacement arthroplasty. SURGEON: Tony Combs M.D. RESTAURANT CASHIER: 1. Dr. Lawrence. 2. Dr. Peralta. SURGERY/PROCEDURE: Removal two k-wires under sterile conditions with local anaesthesia left shoulder ANESTHESIA: Local infiltration anesthesia by surgeon. LOCATION: [place] [address]. SURGICAL FINDINGS: Healed fracture of the scapular [...] they were retrieved with a sterile needle cpr ambulance driver and removed. Once both removed, the [...] of positioning, retraction, a (more content not included)...[facility] PATHOLOGYon 10-30-2023 CASE REPORTNoSCCI Hospital LimaComment on above:Order Comment: Specimen Type: DEVICE SPECIMENOrdering Facility: [facility] Address: [address] [place], [place] [address]Result Comment: Surgical Pathology Report Case: [id number] Authorizing Provider: Tony Combs MD Collected: 10/30/2023 08:12 AM Ordering Location: [facility] Received: 10/30/2023 10:14 AM Operating Room Pathologist: Taurus Renae MD, PhD Specimen: HARDWARE, left shoulder-removed hardware k wiresPerformed By: #### S ####[facility] [id number] [address] OF AMERICACLINICAL HISTORYNoSCCI Hospital LimaComment on above:Order Comment: Specimen Type: DEVICE SPECIMENOrdering Facility: [facility] Address: [address] [place], [place] [address]Result Comment: Pre-op diagnosis: Exposed orthopaedic hardware (HCC) [T84.498A]Performed By: #### S ####[facility] [id number] [address]FINAL DIAGNOSISNoSCCI Hospital LimaComment on above:Order Comment: Specimen Type: DEVICE SPECIMENOrdering Facility: [facility] Address: [address] [place], [place] [address]Result Comment: A. Left shoulder, orthopedic hardware, removal: -K wires (gross diagnosis only). LAURIE 10/31/23 10:25 AM Performed By: #### S ####[facility] LABCLIA [id number] [address]FINAL PERFORMING LAB NormalMercy Health Urbana Hospital HospitalComment on above:Order Comment: Specimen Type: DEVICE SPECIMENOrdering Facility: [facility] Address: [address] [place], [place] [address]Result Comment: Diagnostic interpretation performed at [facility], [address] [place] [address] CLIA# [id number] General Superintendent: Anthony Bruno M.D.Performed By: #### S ####[facility] LABCLIA [id number] [address]GROSS DESCRIPTIONA. HARDWARENoMercy Health Perrysburg Hospital HospitalComment on above:Order Comment: Specimen Type: DEVICE SPECIMENOrdering Facility: [facility] Address: [address] [place], [place] [address]Result Comment: Received fresh, labeled left shoulder-removed hardware K wires are 2, denton metallic K wires consisting of a straight guilherme with looped end. Fragmentation is not identified. There is no soft tissue present. The specimen is for gross examination only. The specimen is reviewed with . RUI October 31, 2023 10:24 AM Gross examination performed at [facility], [address] [place], [place] [address]Performed By: #### S ####[facility] LABCLIA [id number] [address] OF [facility] CNOVon 74-73-5673KMHHXdpjyi Visit (ORTHBE) QING FISCHER ([id number]) 1945 F LV Date Time Provider Department 10/26/23 9:45 AM TONY COMBS During your visit today, we recorded the following information about you: Tony Combs MD 10/31/2023 1:19 PM Signed Patient Name: QING FISCHER Clinic No: [id number] Date of Service: October 24, 2023 [facility] Patient returns for follow [...] patient was offered a surgery/procedure at a [facility] facility. The surgeon/proceduralist and patient have [...] total shoulder arthroplasty, lef (more content not included)...NormalWVUMedicine Harrison Community HospitalOVon 30-21-0798VRYW Office Visit (ORUH) AALIYAHQING M ([id number]) 1945 F LV Date Time Provider Department 10/24/23 9:[address] [facility] During your visit today, we recorded the following information about you: Wolfgang Chou PA-C 10/26/2023 9:09 AM Signed Patient Name: QING Sutton [facility] No: [id number] Date of Service: October 24, 2023 [facility] - ORTHOPAEDICS Patient returns for follow up approximately 6 weeks status post Left shoulder reverse total Shoulder Arthroplasty, extensive capsular release, biceps tenodesis, open reduction internal fixation of acromion fracture 09/11/[address] Combs. She continues to be pleased with her progress utilizing phase 1 protocols with occupational therapy. Pain is reported as minimal rated 0/10. 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 This note was partially generated using SkiApps.com voice recognition system and as such may [...] GENERAL 3V OR MORE AP/TRUE AP/OTHER LEFT [[id number]] Order #: [id number] FUTURE cephALEXin (KEFLEX) 500 mg capsuleTake 1 [...] rotator cuff, lef*0 (more content not included)... [facility] HospitalXR SHLDR >/=3V AP/JULIETA AP/OTHR LTon 50-78-7188NG SHLDR >/=3V AP/JULIETA AP/OTHR LT* * *Final Report* * * DATE OF [...] acromium. IMPRESSION: Postsurgical changes without interval complication. Stage Hand: PSCB Transcribe Date/Time: Oct 25 2023 8:41A Dictated by : CRAIG LAN MD This examination was interpreted and the report reviewed and electronically signed by: CRAIG LAN MD on Oct 25 2023 8:42AM EST [id number] Regional Medical Center South CampusCNTHERAPYon 27-02-8984EXUBCMZNY OT/PT/Speech Visit (ZAHIRA) AALIYAHQING Sutton ([id number]) 1945 F LV Date Time Provider Department 10/16/23 2:00 PM ROMINA DARNELL Date Time Provider Department Center 10/16/2023 2:00 PM [id number]-FMQSGFUVROMINA DARNELL Reason for Visit: OT Progress Note [9655] Primary Visit Diagnosis:Decreased range of motion of [...] UNIT CAP) - PSEUDOEPHEDRINE 30 MG TAB NormalCleveland Clinic Mercy HospitalCNTHERAPYon 50-94-0101ALNKKTOSLFR/PT/Speech Visit (LOOTRM) QING FISCHRE ([id number]) 1945 F LV Date Time Provider Department 10/12/23 2:00 PM ROMINA DARNELL Date Time Provider Department Center 10/12/2023 2:00 PM [id number]-MRPVUBHBROMINA DARNELL Reason for Visit: Occupational Therapy [504] [...] UNIT CAP) - PSEUDOEPHEDRINE 30 MG TAB NormalCleveland Clinic Mercy HospitalCNTHERAPYon 74-42-3453QRHXKZBPGNE/PT/Speech Visit (DIONOTRLesley) QING FISCHER ([id number]) 1945 F LV Date Time Provider Department 10/02/23 11:45 AM ROMINA DARNELL Date Time Provider Department Center 10/02/2023 11:45 AM [id number]-ZSHAHIRWROMINA DARNELL Reason for Visit: Occupational Therapy [504] [...] by Romina Darnell OTR/Cristopher on 10/02/2023 12:22 PMNormalTrumbull Regional Medical Center 59-30-2021BFYGZbiotw Visit ([facility]) QING FISCHER ([id number]) 1945 F Date Time Provider Department 09/29/23 10:[address] [facility] During your visit today, we recorded the following information about you: Wolfgang Chou PA-C 10/23/2023 11:33 PM Signed Patient Name: QING Sutton [facility] No: [id number] Date of Service: September 29, 20[facility] Patient returns for follow [...] sooner. This note was partially generated using SkiApps.com voice recognition system and as such may [...] GENERAL 3V OR MORE AP/TRUE AP/OTHER LEFT [[id number]] Order #: [id number] FUTURE CONSULT TO MACHINE STEMMER [19991003] Order #: [id number]: 1 FUTURE Prescriptions as of 10/23/2023 - [...] for Encounter Date Provider Department Center 09/29/2023 [id number], JACOB [facility] Encounter Status:Closed by WOLFGANG CHOU on 10/23/23[facility] HospitalXR SHLDR >/=3V AP/JULIETA AP/OTHR LTon 11-43-4205SJ SHLDR >/=3V AP/JULIETA AP/OTHR LT* * *Final Report* * * DATE OF [...] with the acromion. IMPRESSION: No acute findings. Stage Hand: WILLIAM Transcribe Date/Time: Oct 02 2023 4:21P Dictated by : ALISHA DIXON MD This examination was interpreted and the report reviewed and electronically signed by: ALISHA DIXON MD on Oct 02 2023 4:25PM EST [id number] valley regional medical centeran [facility] HospitalFormson 88-56-4575Uwekk [id number]#1.00TIFPeoples HospitalLab Reportson 45-26-8428Wjr Reports [id number]#1.00[facility] Medical CenterAmbulatory Visit Summaryon 61-72-1096Ufrasjuqak Visit Summary QING FISCHER :1945 Visit Date:09/27/2023 Ambulatory Visit Instructions Your Diagnosis Urge urinary incontinence Incomplete bladder emptying Bladder spasm Tests Performed Urnls Dip Stick Auto w/o Microscopy POC 90910 Your Care Team Attending Physician - Danika [...] chloride (calcium-magnesium 112 mg-64 mg oral delayed releasetablet) By Mouth Every day Unchanged cholecalciferol (Vitamin D3) Unchanged levothyroxine Every day Unchanged liothyronine (liothyronine 5 mcg Tab) By Mouth Every day Unchanged Non-Formulary Medication (ULTRANOL) Unchanged omeprazole By Mouth Every day Unchanged oxybutynin (oxybutynin 5 mg Tab) 1 Tablets By Mouth 3 times a day as needed for for urinary discomfort Test Results Urnls Dip Stick Auto w/o Microscopy POC 72828 (09/27/2023) Bilirubin Urine Dipstick - Negative Blood Urine Dipstick - Negative Glucose Urine Dipstick - Negative Ketones Urine Dipstick - Negative Leukocytes Urine Dipstick - 1+ Small Nitrite Urine Dipstick - Negative Protein Urine Dipstick - Negative Specific [place] Urine Dipstick - 1.010 Urine Appearance Urine [...] you for choosing us for your care. [facility] CenterAmbulatory Visit Summary QING FISCHER :1945 Visit Date:09/27/2023 Ambulatory Visit Instructions Your Diagnosis Bladder spasm Tests Performed Urnls Dip Stick Auto w/o Microscopy POC 57428 Your Care Team Attending Physician - BREONNA [...] chloride (calcium-magnesium 112 mg-64 mg oral delayed releasetablet) By Mouth Every day Unchanged cholecalciferol (Vitamin D3) Unchanged levothyroxine Every day Unchanged liothyronine (liothyronine 5 mcg Tab) By Mouth Every day Unchanged Non-Formulary Medication (ULTRANOL) Unchanged omeprazole By Mouth Every day Unchanged oxybutynin (oxybutynin 5 mg Tab) 1 Tablets By Mouth 3 times a day as needed for for urinary discomfort Test Results Urnls Dip Stick Auto w/o Microscopy POC 21145 (09/27/2023) Bilirubin Urine Dipstick - Negative Blood Urine Dipstick - Negative Glucose Urine Dipstick - Negative Ketones Urine Dipstick - Negative Leukocytes Urine Dipstick - 1+ Small Nitrite Urine Dipstick - Negative Protein Urine Dipstick - Negative Specific [place] Urine Dipstick - 1.010 Urine Appearance Urine [...] you for choosing us for your care. [facility] CenterPatient Educationon 09-27-2023 Patient EducationObstetrics and Gynecology Overactive Bladder, Adult Overactive bladder [...] You may also have very sensitive muscles thatmake your bladder squeeze too soon. This condition [...] as stroke, dementia, Parkinson's disease, or multiple sclerosis(MS). ? Eat or drink alcohol, spicy food, [...] health care provider. General instructions ? 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 [...] (N32.89: Other specified disorders of bladder) Ordered: 39096 Measure Post Void residual urine and/or bladder capacity by US- non-imaging Urnls Dip Stick Auto w/o Microscopy POC 94369 Follow-up No qualifying data available Patient Education [...] Protein Urine Dipstick: Negative (09/27/23 13:24:00) Specific [place] Urine Dipstick: 1.010 (09/27/23 13:24:00) Urine Appearance Urine Dipstick: Clear (09/27/23 13:24 (more content not included)...[facility] CenterComment on above:Result Comment: Electronically Signed By: BREONNA Garnica APRN, [place] X\.br\Date and Time Signed: 09/27/23 15:12 ESTCNTHERAPYon 53-35-2257USVIYLZKEHO/PT/Speech Visit (OTLUOP) AALIYAHQING DURAN ([id number]) 1945 F LV Date Time Provider Department 09/15/23 8:30 AM MILADIS ROBERTSON Date Time Provider Department [place] 09/15/2023 8:30 AM [id number]-SVUGLBDMILADIS ROBERTSON [facility] Reason for Visit: OT EVAL [748] [...] CAP) - PSEUDOEPHEDRINE 30 MG TAB Letter [facility] HospitalBabaptist health corbin metabolic 2000 panelon 72-42-2194Ceczm gap [Moles/Vol]7 mmol/LLow9-18[facility] CenterComment on above:Order Comment: Specimen Type: BLOOD SPECIMENOrdering Facility: [facility] Address:[address] [place], [place] [address]Performed By: #### 15064-1 ####[facility] LABORATORYCLIA [id number] [address] STATES OF AMERICACalcium [Mass/Vol]8.3 mg/dLLow8.5-10.2LOhioHealth [facility]erington [facility] Comment on above:Order Comment: Specimen Type: BLOOD SPECIMENOrdering Facility: [facility] Address:[address] [place] [address] Performed By: #### 48234-5 ####[facility] LABORATORYCLIA [id number] [place] [address] [place] OF AMERICAChloride [Moles/Vol]107 mmol/L Lton63-724Emajhxiw HospitalComment on above:Order Comment: Specimen Type: BLOOD SPECIMENOrdering Facility: [facility] Address:[address] [place], [place] [address]Performed By: #### 53598-4 ####[facility] LABORATORYCLIA [id number] [place] [address] [place] AMERICACO2 [Moles/Vol]24 mmol/TRdkocg89-60Nuxdqsmh HospitalComment on above:Order Comment: Specimen Type: BLOOD SPECIMENOrdering Facility: [facility] Address:[address] [place], [place] [address]Performed By: #### 16222-8 ####[facility] LABORATORYCLIA [id number] [place] [id number] [place] OF AMERICACreatinine [Mass/Vol]0.75 mg/dLNormal0.58-0.96Lutblanchard valley health system blanchard valley hospital HospitalComment on above:Order Comment: Specimen Type: BLOOD SPECIMENOrdering Facility: [facility] Address:[address] [place], [place] [address]Performed By: #### 99654-0 ####[facility] LABORATORYCLIA [id number] [place] [address] [place] AMERICACreatinine and Glomerular filtration rate.predicted panel (S/P/Bld)81 mL/min/1.73m???Normal>=60Lutblanchard valley health system blanchard valley hospital HospitalComment on above:Order Comment: Specimen Type: BLOOD SPECIMENOrdering Facility: [facility] Address:[address] [place], [place] [address]Result Comment: Estimated Glomerular Filtration Rate (eGFR) is calculated using the 2020 CKD-EPI creatinine equation. This equation utilizes serum creatinine, sex, and age as parameters. The creatinine assay has traceable calibration to isotope dilution-mass spectrometry. Refer to KDIGO guidelines for clinical interpretation. In patients with unstable renal function, e.g. those with acute kidney injury, the eGFR may not accurately reflect actual GFR. Performed By: #### 56837-5 ####[facility] LABORATORYCLIA [id number] [place] [id number] [place] OF AMERICAGlucose [Mass/Vol]115 mg/dL Aiqx87-19Wbrmdawc HospitalComment on above:Order Comment: Specimen Type: BLOOD SPECIMENOrdering Facility: [facility] Address:[address] [place], [place] [address]Result Comment: The [place] Diabetes Association (ADA) provides guidance for cutoff [...] Standards of Medical Care in Diabetes 2016, [place] Diabetes Association. Diabetes Care. 2016.39(Suppl 1).Performed By: #### 84325-0 ####[facility] LABORATORYCLIA [id number] [place] [address] [place] AMERICAPotassium [Moles/Vol]4.4 mmol/LNormal3.7-5.1Luthhonorhealth sonoran crossing medical center HospitalComment on above:Order Comment: Specimen Type: BLOOD SPECIMENOrdering Facility: [facility] Address:[address] [place], [place] [address]Performed By: #### 62861-6 ####[facility] LABORATORYCLIA [id number] [place] [address] [place] AMERICASodium [Moles/Vol]138 mmol/RTjdqvs979-899Qflqzcxt HospitalComment on above:Order Comment: Specimen Type: BLOOD SPECIMENOrdering Facility: [facility] Address:[address] [place], [place] [address]Performed By: #### 77211-5 ####[facility] LABORATORYCLIA [id number] [place] [id number] [place] OF AMERICAUrea nitrogen [Mass/Vol]18 mg/dLNormal7-21[facility] HospitalComment on above:Order Comment: Specimen Type: BLOOD SPECIMENOrdering Facility: [facility] Address:[address] [place], [place] [address]Performed By: #### 72960-5 ####[facility] LABORATORYCLIA [id number] [place] [id number] [place] OF AMERICACASE MGT INIT ASSESon 03-87-3363OLIP MGT INIT ASSSANCHEZNO ID: [id number] Author: Vivian Davis RN Service: Care Management Author Type: Registered Nurse Type: Care Mgt Initial Assessment Filed: 09/12/2023 3:30 PM Note Text: CARE MANAGEMENT: ASSESSMENT AND DISCHARGE PLAN SERVICE DATE: September 12, 2023 SERVICE TIME: 1310 PCP: Nona Mcknight MD Primary Contact: Extended Emergency Contact Information Primary Emergency Contact: SINA FISCHER Address: [address] [place] [address] Mobile Relation: Spouse Secondary Emergency Contact: Matt Rogers Relation: Son Admission Status: Extended Recovery Insurance Provider: EBONY GILMAN [facility] Discharge Planning requested by: Per Department Practice Potential Transition Plans Home;Outpatient Therapy Advance Directives Current Advance Directive: Health Care Power of Bill Checker In Chart: No Current Living Arrangements and Support Lives with: Spouse/significant other Type of Residence: Private Residence (House) Does the patient have to climb stairs at home?: Yes Support: Current Services/Equipment Current Post-Acute Service(s): DME Current DME Type: Cane Discharge Planning Patient Goal(s): Better mobility, Less pain [place] of Choice Explained: [place] of Choice Given: No Reason Not Given: No placements necessary Are you interested in bedside delivery of your medications? Yes Discharge Planning Participant(s): Patient;Spouse/significant other Patient/Family Comments: Caregiver Assessment: Caregiver is [...] Physician Primary Care Physician Name/Phone: Nona Mcknight [phone] Additional Information: Summary of Care Post-Acute Discharge Plan: Patient assessed at this time. She lives with her and he will assist and transport home. She will be staying with the Son locally until tomorrow. Plan is to discharge today when all goals are met. Script[facility]. She is scheduled for outpt OT Monday, requested an earlier day. She has no other needs. SIGNATURE: Vivian Davis RN PATIENT NAME: Qing Fischer DATE: September 12, 2023 TIME: 1:14 PM CONTACT #: [phone] HospitalCBC panel Auto (Bld) on 80-58-3389Qnttctfoygg distribution width (RBC) [Ratio]13.9 %Bcteae74.5-15.0 [facility] HospitalComment on above:Order Comment: Specimen Type: BLOOD SPECIMENOrdering Facility: [facility] Address:[address] [place], [place] [address]Performed By: #### 80658-2 ####[facility] LABORATORYCLIA [id number] [place] [id number] [place] Hematocrit (Bld) [Volume fraction]27.9 %Low36.0-46.0Lutblanchard valley health system blanchard valley hospital HospitalComment on above:Order Comment: Specimen Type: BLOOD SPECIMENOrdering Facility: [facility] Address:[address] [place], [place] [address]Performed By: #### 68996-9 ####[facility] LABORATORYCLIA [id number] [place] [id number] [place] OF AMERICAHemoglobin (Bld) [Mass/Vol]8.8 g/dLLow11.5-15.5 [facility] HospitalComment on above:Order Comment: Specimen Type: BLOOD SPECIMENOrdering Facility: [facility] Address:[address] [place], [place] [address]Performed By: #### 58072-3 ####[facility] DAY LABORATORYCLIA [id number] [place] [id number] [place] OF AMERICAMCH (RBC) [Entitic mass]27.9 rqDenpsj12.0-34.0Lutblanchard valley [facility] HospitalComment on above: Order Comment: Specimen Type: BLOOD SPECIMENOrdering Facility: [facility] Address:[address] [place], [place] [address]Performed By: #### 94612- 2 ####L[facility] DAY LABORATORYCLIA [id number] [address] [place], [place] [address]MCHC (RBC) [Mass/Vol]31.5 g/iHXbrcfe99.5-36.0Lutheran HospitalComment on above:Order Comment: Specimen Type: BLOOD SPECIMENOrdering Facility: [facility] Address:[address] [place], [place] [address]Performed By: #### 73399-3 ####L[facility] DAY LABORATORYCLIA [id number] [address] [place], [place] [address]MCV (RBC) [Entitic vol] 88.6 wVAeilvb26.0-100.0Lutheran HospitalComment on above:Order Comment: Specimen Type: BLOOD SPECIMENOrdering Facility: [facility] Address:[address] [place], [place] [address]Performed By: #### 41110-5 ####L[facility] DAY LABORATORYCLIA [id number] [address]ucleated RBC (Bld) [#/Vol]10*3/uLNormal<0.01Lutheran HospitalComment on above:Order Comment: Specimen Type: BLOOD SPECIMENOrdering Facility: [facility] Address:[address] [place], [place] [address]Performed By: #### 30590-1 ####L[facility] DAY LABORATORYCLIA [id number] [address]ETPlatelet mean volume (Bld) [Entitic vol]8.6 fLLow 9.0-12.7Lutheran HospitalComment on above:Order Comment: Specimen Type: BLOOD SPECIMENOrdering Facility: [facility] Address:[address] [place], [place] [address]Performed By: #### 35153-2 ####L[facility] DAY LABORATORYCLIA [id number] [address] Platelets (Bld) [#/Vol]283 10*3/kUVhiwle676-443Iketjbrs HospitalComment on above:Order Comment: Specimen Type: BLOOD SPECIMENOrdering Facility: [facility] Address:[place], [place] [address]Performed By: #### 88230-2 ####LATTER DAY LABORATORYCLIA [id number] [place] [id number] [facility] HOSPITALRB (Bld) [#/Vol]3.15 10*6/uLLow3.90-5.20Lutheran HospitalComment on above:Order Comment: Specimen Type: BLOOD SPECIMENOrdering Facility: [facility] Address:[place], [place] [address]Performed By: #### 29010-4 ####L[facility]TER DAY LABORATORYCLIA [id number] [address]W ([facility]) [#/Vol]10.42 10*3/uLNormal3.70-11.00Lutheran HospitalComment on above:Order Comment: Specimen Type: BLOOD SPECIMENOrdering Facility: [facility] Address:[address] [place], [place] [address]Performed By: #### 53733-1 ####LATTER DAY LABORATORYCLIA [id number] [address]ETCNAdena Pike Medical Center 45-73-2411QDCCIOY ID: [id number] Author: Juan Pope MD Service: Orthopaedic Surgery [...] The patient was electively admitted to the [facility] on 09/11/2023. Surgery was scheduled and on [...] 09/15/2023 8:30 AM Miladis Robertson OTR/Cristopher OTLUOP [facility] 09/22/2023 10:45 AM Wolfgang Chou PA-C [facility]Lem[facility] Dis[facility] Medications: Medication List START taking these medications docusate sodium 100 mg capsule Commonly known as: COLACE Take 1 capsule by mouth two times a day for 7 days. ondansetron orally disintegrating 8 mg disintegrating tablet Commonly known as: ZOFRAN ODT Take 1 tablet by mouth every 8 hours as needed for nausea/vomiting. oxyCODONE-acetaminophen 5-325 mg tablet Commonly known as: PERCOCET Take 1 tablet by mouth every 6 hours as needed for pain for up to 7 days. CONTINUE taking these medications CEN[facility]AL [facility] S[facility]-LUTEIN Tab Generic drug: Phpwtkekwrbtf-Sttguiyi-Hztogm CORAL CALCIUM PLUS 250-125-200 mg-mg-unit Cap Generic drug: Calcium-Mag Oxide-Vitamin D3 levothyroxine 88 mcg tablet Commonly known as: SYNTHROID liothyronine 5 mcg tablet Commonly known as: CYTOMEL oxybutynin 2.5 mg tablet Commonly known as: DITROPAN pseudoephedrine 30 mg tablet Commonly known as: SUDAFED Where to Get Your Medications These medications were sent to [facility] [address] [place] [address] Hours: Monday-Monday, 9a (more content not included)...[facility] CONSULT PROGojanny [id number] PROBIANCA ID: [id number] Author: Albina Arzate MD Service: General Internal [...] cm (5') 60.8 kg (134 lb) 09/11/23 183 (!) 119/46 36.7 ?C (98.1 ?F) Oral [...] original meaning may be extrapolated by contextual derivationMercy Health Kings Mills Hospital THERAPY [facility] [id number] [facility] ID: [id number] Author: Oswaldo Vernon PT Service: Physical Therapy Author Type: Physical Therapist Type: Therapy (PT/OT/Speech/Resp) Filed: 09/12/2023 11:48 AM Note Text: Physical Therapy Evaluation SERVICE DATE: 09/12/2023 SERVICE TIME: 1116 to 1131 ROOM: [id number] Recommended Discharge Disposition: Home Recommended Discharge Disposition [...] Blank rader indicate activity not attempted General Deviations/Observations: Sarah decreased, Step length decreased Balance: Dynamic Sitting, Dynamic Standing Dynamic Sitting Balance: Normal Patient accepts maximal challenge and can shift weight easily within full range in all directions Dynamic Standing Balance: Fair Patient accepts minimal challenge, able to maintain balance while turning head/trunk -HLM: 8: Walk 250 feet or more Learning/Educational [...] on feet Interventions Provided: Evaluation $ Evaluation-Low (99202) Billed Units: 1 unit Training AND Education [...] this therapy evaluation/treatment. SIGNATURE: (more content not included)...[facility] ID: [id number] Author: Samantha Jaeger OT/L Service: Occupational Therapy Author Type: Occupational Therapist Type: Therapy (PT/OT/Speech/Resp) Filed: 09/12/2023 10:10 AM Note Text: Occupational Therapy Evaluation SERVICE DATE: 09/12/2023 SERVICE TIME: 904 to 944 ROOM: NX-4T-201N- Total Joint Replacement Discharge Readiness: Cleared from [...] (ADL), Reduced mobility-other Interventions Provided: Evaluation, Self Long-Term Management (52334), Therapeutic Exercise (21400) $ Evaluation - Low (54048) Billed Units: 1 unit Therapeutic Exercise (77805) Treatment Minutes: 10 $ Therapeutic Exercise (74648) Billed Units: 1 unit Self Long-Term Management (39826) Treatment Minutes: 15 $ Self Long-Term Management (65447) Billed Units: 1 unit Training AND Education Provided in: Adaptive Equipment/DME, Activity Adaptation/Compensatory Strategies, Bed Mobility, Benefits of In-Hospital Mobility, Discharge Planning, Expected Functional Level, Functional Mobility Involving ADLs, Lower Extremity Dressing, Home Set-up/Modifications, Precautions/Restrictions, Positioning, Role of Occupational Therapy, Standing Balance to Improve [place] with ADLs/Self-Care, Transfer - Sit to Stand, Transfer - Bed to Chair, Upper Extremity Bathing, Upper Extremity Dressing, Transfer - Car, Patient Exercise/Therapy Program Support Needs, Exercise Program The Following Therapeutic Skills Were Used: Assessment of Tolerance Including Vitals Response to Activity, Cues for Sequencing/Proper Technique for A (more content not included)...[facility] POSTPROC EVALon 40-26-5510EPYH POSTPROC EVALHNO ID: [id number] Author: Sil Sanchez MD Service: Anesthesiology Author Type: Anesthesiologist Type: Anesthesia Postprocedure Evaluation Filed: 09/11/2023 5:59 PM Note Text: POST ANESTHESIA EVALUATION NOTE : 1945 Procedure Summary Date: 09/11/23 Room / Location: [place] [address] / OR Anesthesia Start: 1250 Anesthesia Stop: [...] Resp 16 09/11/23 1749 SpO2 96 % 09/11/231758 Vitals shown include unfiled device data. Post [...] September 11, 2023 TIME: 5:59 PM CSN: [id number] [facility]als [facility] PRE-OPon 39-12-6538DYFY PRE-OPHNO ID: [id number] Author: Sil Sanchez MD Service: Anesthesiology Author [...] fracture, bone grafting, possible tendon transfer. Location: OR / OR Surgeons: Tony Combs MD Estimated [...] Crooks present: no Lip Bite Test: II Microretrognathia/Micronagthia/Recessed Chin: No DENTAL Dental findings: chipped and [...] and consent discussed: yes. Patient / Responsible Republican agrees to proceed: yes Patient / Surrogate agrees to blood products: Yes Significant changes in the patient condition since the History and Physical, not otherwise documented in primary service progress note: no. Vitals Value Taken Time BP 127/61 09/11/23 0946 Pulse 86 09/11/23 0946 Resp 16 09/11/23 0946 Temp 37.3 ?C (99.1 ?F) 09/11/23 0946 SpO2 97 % 09/11/23 0946 Facility-Administered Medications as of 09/11/2023 Medication Dose [...] September 11, 2023 TIME: 10:58 AM CSN: [id number] Health OP NOTon 09-11-2023 BRIEF OP NOTHNO ID: [id number] Author: Rex Mckeon MD Service: Hand Surgery Author Type: Fellow Type: Brief Op Note Filed: 09/11/2023 5:39 PM Note Text: BRIEF OP NOTE Patient Name: Qing Fischer Log ID: [id number] Surgery Date: 09/11/2023 Pre-Op/Pre-Procedure Diagnosis: Closed displaced fracture of acromial process, unspecified laterality, sequela [S42.123S] Rotator cuff tear arthropathy of left shoulder [M75.102, M12.812] Injury of tendon of long head of biceps, left, initial encounter [S46.102A] Contracture of shoulder, left [M24.512] Post-Op/Post-Procedure Diagnosis: Same Surgeon(s) and Case Sealer(s): Surgeon(s) and Role: * Tony Combs MD [...] Implant Name Type Inv. Item Serial No. Corporate Job Titles Lot No. LRB No. Used Action TRABECULAR METAL REVERSE PLUS BASE PLATE 15MM Implant [employer] [id number] Left 1 Implanted SCREW NCB ANATOMICAL SHOULDER 4.5MM PROTASUL-64WF 24MM BONE INVERSE REVERSE - [id number] Screw SCREW NCB ANATOMICAL SHOULDER 4.5MM PROTASUL-64WF 24MM BONE INVERSE REVERSE [employer] [id number] Left 1 Wasted SCREW NCB ANATOMICAL SHOULDER 4.5MM PROTASUL-64WF 33MM BONE INVERSE REVERSE - [id number] Screw SCREW NCB ANATOMICAL SHOULDER 4.5MM PROTASUL-64WF 33MM BONE INVERSE REVERSE [employer] [id number] Left 1 Implanted SCREW NCB 4.5MM PROTASUL-64WF 30MM BONE INVERSE REVERSE LOCK STERILE - [id number] Screw SCREW NCB 4.5MM PROTASUL-64WF 30MM BONE INVERSE REVERSE LOCK STERILE [employer] [id number] Left 1 Implanted TRABECULAR METAL REVERSE PLUS SHOULDER HEAD 36MM 0DEG Implant [employer] [id number] Left 1 Implanted WIRE LIZ 1.6MM STAINLESS STEEL 5.5IN FIXATION TROCAR SMOOTH GUIDE - [id number] Wire WIRE LIZ 1.6MM STAINLESS STEEL 5.5IN FIXATION TROCAR SMOOTH GUIDE [employer] [id number] Left 1 Implanted STEM 12MM TRABECULAR METAL TIVANIUM 130MM HUMERAL REVERSE STERILE SHOULDER - [id number] Joint STEM 12MM TRABECULAR METAL TIVANIUM 130MM HUMERAL REVERSE STERILE SHOULDER [employer] [id number] Left 1 Implanted WIRE LIZ 1.6MM STAINLESS STEEL 5.5IN FIXATION TROCAR SMOOTH GUIDE - [id number] Wire WIRE LIZ 1.6MM STAINLESS STEEL 5.5IN FIXATION TROCAR SMOOTH GUIDE [employer] [id number] Left 1 Implanted LINER 36MM 12D 65D TRABECULAR METAL POLYETHYLENE H+6MM SHOULDER REVERSE - [id number] Joint LINER 36MM 12D 65D TRABECULAR METAL POLYETHYLENE H+6MM SHOULDER REVERSE [employer] [id number] Left 1 Implanted CEMENT SIMPLEX P TOBRAMYCIN BONE FULL DOSE RADIOPAQUE PREBLEND STERILE - [id number] Cement / Putty CEMENT SIMPLEX P TOBRAMYCIN BONE FULL DOSE RADIOPAQUE PREBLEND STERILE [facility] [id number] Left 1 Implanted CEMENT SIMPLEX P TOBRAMYCIN BONE FULL DOSE RADIOPAQUE PREBLEND STERILE - [id number] Cement / Putty CEMENT SIMPLEX P TOBRAMYCIN BONE FULL DOSE RADIOPAQUE PREBLEND STERILE [facility] [id number] Left 1 Implanted Estimated Blood Loss: 250mL Drains: None Specimens: left shoulder and acromion Plan: 1) Admission for observation, pain control, and PT 2) Keep dressing clean, dry, and intact until follow-up Signature: Rex Mckeon MD Date: September 11, 2023 Time: 5:39 [facility] HospitalSURobert Wood Johnson [facility] [id number] ID: [id number] Author: Albina Arzate MD Service: General Internal [...] (COLACE) 100 mg ORAL BID [place], [place], RETAIL EVENT ASSISTANT.MECHANICAL SERVICE SPECIALIST polyethylene glycol 3350 17 g packet 17 g ORAL DAILY [place], [place], RETAIL EVENT ASSISTANT.MECHANICAL SERVICE SPECIALIST ALLERGIES Allergen Reactions Codeine Mental Status Change Tylenol with codeine. Hot/ flushed. Amoxicillin Rash Nickel Rash Family History Problem Relation Age of Onset Hypertension Father Coronary Artery Disease Father Hypertension Sister Coronary Artery Disease Sister [place] in 30s Anesthesia Problems No Family History [...] MCH (pg) Date Value (more content not included)...[facility] HospitalNURSING PROOhiohealth Riverside Methodist Hospital [id number] ST. [facility] ID: [id number] Author: Yazmin Heard RN Service: Nursing Author [...] pt tomorrow and make recommendations. Pt resting comfortably.[facility] HospitalOPERATIVE NOon [id number] NOHNO ID: [id number] Author: Tony Combs MD Service: Orthopaedic Surgery Author Type: Physician Type: Operative Report Filed: 09/12/2023 9:49 AM Note Text: [facility] - Operative Report QING FISCHER : 1945 AGE: 78. SEX: F PATIENT TYPE: I HOSP SV: Surgical LOCATION: [facility] ATTENDING PHYSICIAN: Tony Combs M.D. CSN NUMBER: [id number] DATE OF SURGERY/PROCEDURE: 09/11/2023 INCISION/PROCEDURE START TIME: [...] the left shoulder. SURGEON: Tony Combs M.D. RESTAURANT CASHIER: Dr. Mckeon. SURGERY/PROCEDURE: Revision surgery performed through [...] general anesthesia by the Anesthesia team. LOCATION: [place] [address]. SURGICAL FINDINGS: It should be noted this [...] which transitioned medial, these (more content not included)...Normal [facility] CenterURGICAL PATHOLOGYon 84-29-8250ZPUY REPORTNoSCCI Hospital LimaComment on above:Order Comment: Specimen Type: SPECIMEN FROM BONEOrdering Facility: [facility] Address: [address] [place] [id number] Comment: Surgical Pathology Report Case: [id number] Authorizing Provider: Tony Combs MD Collected: 09/11/2023 02:30 PM Ordering Location: [facility] Received: 09/12/2023 02:27 PM Operating Room Pathologist: Magdi Alfredo MD Specimens: A) - HUMERAL HEAD LEFT, bone & tissue left shoulder joint B) - BONE RESECTION, acromium non-union bone leftPerformed By: #### S ####[facility] LABCLIA [id number] [address] STATES OF AMERICACLINICAL HISTORYNoSCCI Hospital LimaComment on above:Order Comment: Specimen Type: SPECIMEN FROM BONEOrdering Facility: [facility] Address: [address] [place] [id number] Comment: Pre-op diagnosis: Closed displaced fracture of acromial process, unspecified laterality, sequela [S42.123S] Rotator cuff tear arthropathy of left shoulder [M75.102, M12.812] Injury of tendon of long head of biceps, left, initial encounter [S46.102A] Contracture of shoulder, left [M24.512]Performed By: #### S ####[facility] LABCLIA [id number] [place] [id number] [facility] HospitalComment on above: Order Comment: Specimen Type: SPECIMEN FROM BONEOrdering Facility: [facility] Address: [address] [place], [place] [address]Result Comment: A. Left shoulder, arthroplasty: - Degenerative joint disease. B. 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 Performed By: #### S ####[facility] LABCLIA [id number] [address]OR [address] [facility] HospitalComment on above:Order Comment: Specimen Type: SPECIMEN FROM BONEOrdering Facility: [facility] Address: [address] [place], [place] [address]Result Comment: Diagnostic interpretation performed at [facility], [facility] [place] [id number] CLIA# [id number] General Superintendent: Anthony Bruno M.D.Performed By: #### S ####[facility] LABCLIA [id number] [address] DESCRIPTIONMercy Health Kings Mills HospitalComment on above:Order Comment: Specimen Type: SPECIMEN FROM BONEOrdering Facility: [facility] Address: [address] [place], [place] [address]Result Comment: A. HUMERAL HEAD LEFT Received in formalin labeled with [...] no areas of induration or nodularity present. Summer [employer] Associate sections are submitted as follows: A1 soft [...] 2023 5:15 PM Gross examination performed at [facility], [address] [place], [place] [address]Performed By: #### S ####[facility] LABCLIA [id number] [place] [address] [place] XR SHOULDER SPECIFY 1V LTon 94-58-6973UB SHOULDER SPECIFY 1V LT* * *Final Report* * * DATE OF [...] Satisfactory postoperative appearance of left shoulder arthroplasty. Stage Hand: PSCB Transcribe Date/Time: Sep 12 2023 8:36A Dictated by : MIRI CHONG MD This examination was interpreted and the report reviewed and electronically signed by: MIRI CHONG MD on Sep 12 2023 8:38AM EST [id number] Intermountain Medical Center metabolic 2000 panelon 28-04-1087Eynoy gap [Moles/Vol]16 mmol/LNormal9-18[facility] Comment on above:Order Comment: Specimen Type: BLOOD SPECIMENOrdering Facility: [facility] Address:[address] [place] [address] Performed By: #### 33608-5 ####[facility] LABCLIA [id number] [place] [address] [place] Calcium [Mass/Vol]9.8 mg/dLNormal8.5-10.2CMercy Health – The Jewish HospitalComtrinity health [place] on above:Order Comment: Specimen Type: BLOOD SPECIMENOrdering Facility: [facility] Address:[address] [place], [place] [address]Performed By: #### 58237-0 ####[facility] LABCLIA [id number] [place] [address] [place] AMERICAChloride [Moles/Vol] 103 mmol/UEyzxma45-488RnwrhrztpCleveland Clinic Mercy HospitalComtrinity health [place] on above:Order Comment: Specimen Type: BLOOD SPECIMENOrdering Facility: [facility] Address:[address] [place], [place] [address]Performed By: #### 32010-4 ####[facility] LABCLIA [id number] [place] [address] [place] AMERICACO2 [Moles/Vol]22 mmol/LNormal 22-30[facility] HospitalComtrinity health [place] on above:Order Comment: Specimen Type: BLOOD SPECIMENOrdering Facility: [facility] Address:[address] [place], [place] [address]Performed By: #### 62573-8 ####[facility] LABCLIA [id number] [place] [address] [place] AMERICACreatinine [Mass/Vol]0.73 mg/dLNormal0.58-0.96[facility] HospitalComtrinity health [place] on above:Order Comment: Specimen Type: BLOOD SPECIMENOrdering Facility: [facility] Address:[address] [place], [place] [address]Performed By: #### 72561-4 ####[facility] LABCLIA [id number] [address] Creatinine and Glomerular filtration rate.predicted panel (S/P/Bld)83 mL/min/1.73m???Normal>=60[facility] on above:Order Comment: Specimen Type: BLOOD SPECIMENOrdering Facility: [facility] Address:[address] [place], [place] [address]Result Comment: Estimated Glomerular Filtration Rate (eGFR) is calculated using the 2020 CKD-EPI cre atinine equation. This equation utilizes serum creatinine, sex, and age as parameters. The creatinine assay has traceable calibration to isotope dilution- mass spectrometry. Refer to KDIGO guidelines for clinical interpretation. In patients with unstable renal function, e.g. those with acute kidney injury, the eGFR may not accurately reflect actual GFR.Performed By: #### 43803-4 ####[facility] LABIA [id number] [address] STATES OF [facility] MEMORIAL HOSPITALGlucose [Mass/Vol]84 mg/dLNormal 74-99[facility] on above:Order Comment: Specimen Type: BLOOD SPECIMENOrdering Facility: [facility] Address:[address] [place] [address] Comment: The [place] Diabetes Association (ADA) provides guidance for cutoff [...] Standards of Medical Care in Diabetes 2016, [place] Diabetes Association. Diabetes Care. 2016.39(Suppl 1).Performed By: #### 36774-5 ####[facility] LABCLIA [id number] [place] [address] [place] AMERICAPotassium [Moles/Vol]4.3 mmol/L Normal3.7-5.1CMercy Health – The Jewish HospitalComtrinity health [place] on above:Order Comment: Specimen Type: BLOOD SPECIMENOrdering Facility: [facility] Address:[address] [place], [place] [address]Performed By: #### 77149-4 ####[facility] LABCLIA [id number] [place] [address] [place] AMERICASodium [Moles/Vol]141 mmol/MMnmskd665-210HefmcoagfThe [facility] on above:Order Comment: Specimen Type: BLOOD SPECIMENOrdering Facility: [facility] Address:[address] [place], [place] [address]Performed By: #### 87338-7 ####[facility] LABIA [id number] [place] [address] [place] AMERICAUrea nitrogen [Mass/Vol]14 mg/dLNormal7-21[facility] Comment on above:Order Comment: Specimen Type: BLOOD SPECIMENOrdering Facility: [facility] Address:[address] [place] [address] Performed By: #### 53579-1 ####[facility] LABCLIA [id number] [place] [address] [place] CBC W Auto Differential panel (Bld)on 33-37-7899Purpxnwbt (Bld) [#/Vol]0.03 10*3/uLNormal<0.11CPremier Health [facility] on above:Order Comment: Specimen Type: BLOOD SPECIMENOrdering Facility: [facility] Address:[address] [place], [place] [address]Performed By: #### 97686-9 ####[facility] LABCLIA [id number] [place] [address] [place] AMERICABasophils/100 WBC (Bld)0.4 % NormalThe Surgical Hospital at [facility]woods on above:Order Comment: Specimen Type: BLOOD SPECIMENOrdering Facility: [facility] Address:[address] [place], [place] [address]Performed By: #### 46917-2 ####[facility] LABCLIA [id number] [place] [address] [place] AMERICADifferential cell count method Nom (Bld)AutoNormalCPremier Health Miami [facility] Hospital [facility] on above:Order Comment: Specimen Type: BLOOD SPECIMENOrdering Facility: [facility] Address:[address] [place], [place] [address]Performed By: #### 95695-4 ####[facility] LABIA [id number] [place] [address] [place] AMERICAEosinophils (Bld) [#/Vol]0.10 10*3/uLNormal<0.46[facility] on above:Order Comment: Specimen Type: BLOOD SPECIMENOrdering Facility: [facility] Address:[address] [place], [place] [address]Performed By: #### 67005-3 ####[facility] LABIA [id number] [place] [address] [place] Eosinophils/100 WBC (Bld)1.3 %NormalThe Surgical Hospital at [facility] on above: Order Comment: Specimen Type: BLOOD SPECIMENOrdering Facility: [facility] Address:[address] [place], [place] [address]Performed By: #### 19600- 8 ####[facility] LABIA [id number] [place] [address] [place] AMERICAErythrocyte distribution width (RBC) [Ratio]14.1 %Xxbosc29.5-15.0[facility] on above: Order Comment: Specimen Type: BLOOD SPECIMENOrdering Facility: [facility] Address:[address] [place], [place] [address]Performed By: #### 11950- 8 ####[facility] LABCLIA [id number] [place] [address] [place] AMERICAHematocrit (Bld) [Volume fraction]41.4 %Evmfwq86.0-46.0[facility] on above:Order Comment: Specimen Type: BLOOD SPECIMENOrdering Facility: [facility] Address:[address] [place], [place] [address]Performed By: #### 24942- 8 ####[facility] LABCLIA [id number] [place] [address] [place] AMERICAHemoglobin (Bld) [Mass/Vol]13.2 g/vRUzvhci06.5-15.5CPremier Health [facility] on above:Order Comment: Specimen Type: BLOOD SPECIMENOrdering Facility: [facility] Address:[address] [place], [place] [address]Performed By: #### 69291-0 ####[facility] LABCLIA [id number] [place] [address] [place] AMERICAImmature granulocytes (Bld) [#/Vol]10*3/uLNormal<0.10[facility] on above:Order Comment: Specimen Type: BLOOD SPECIMENOrdering Facility: [facility] Address:[address] [place], [place] [address]Performed By: #### 30036- 8 ####[facility] LABIA [id number] [place] [address] [place] AMERICAImmature granulocytes/100 WBC (Bld)0.3 %NormalThe [facility] on above:Order Comment: Specimen Type: BLOOD SPECIMENOrdering Facility: [facility] Address:[address] [place], [place] [address]Performed By: #### 24750-9 ####[facility] LABCLIA [id number] [place] [address] [place] AMERICALymphocytes (Bld) [#/Vol]1.94 10*3/uLNormal1.00-4.00[facility] on above:Order Comment: Specimen Type: BLOOD SPECIMENOrdering Facility: [facility] Address:[address] [place], [place] [address]Performed By: #### 55372-2 ####[facility] LABIA [id number] [place] [address] [place] AMERICALymphocytes/100 WBC (Bld)24.4 % NormalThe [facility] on above:Order Comment: Specimen Type: BLOOD SPECIMENOrdering Facility: [facility] Address:[address] [place], [place] [address]Performed By: #### 81004-4 ####[facility] LABIA [id number] [place] [address] [place] AMERICAMCH (RBC) [Entitic mass]28.6 ljYuitkd95.0-34.0[facility] on above:Order Comment: Specimen Type: BLOOD SPECIMENOrdering Facility: [facility] Address:[address] [place], [place] [address]Performed By: #### 13017-5 ####[facility] LABIA [id number] [place] [address] [place] PK MCHC (RBC) [Mass/Vol]31.9 g/nBYebydx66.5-36.0[facility] on above:Order Comment: Specimen Type: BLOOD SPECIMENOrdering Facility: [facility] Address:[address] [place] [address] Performed By: #### 33288-2 ####[facility] LABIA [id number] [place] [address] [place] PK MCV (RBC) [Entitic vol]89.6 yPJazzgb11.0-100.0[facility] on above:Order Comment: Specimen Type: BLOOD SPECIMENOrdering Facility: [facility] Address:[address] [place] [address] Performed By: #### 04506-9 ####[facility] LABCLIA [id number] [place] [address] [place] PK Monocytes (Bld) [#/Vol]0.99 10*3/uLHigh<0.87[facility] on above:Order Comment: Specimen Type: BLOOD SPECIMENOrdering Facility: [facility] Address:[address] [place], [place] [address]Performed By: #### 20861-0 ####[facility] LABCLIA [id number] [place] [address] [place] AMERICAMonocytes/100 WBC (Bld)12.5 %NormalThe [facility] on above:Order Comment: Specimen Type: BLOOD SPECIMENOrdering Facility: [facility] Address:[address] [place], [place] [address]Performed By: #### 94513-9 ####[facility] LABIA [id number] [place] [address] [place] AMERICANeutrophils (Bld) [#/Vol]4.87 10*3/uLNormal1.45-7.50[facility] on above:Order Comment: Specimen Type: BLOOD SPECIMENOrdering Facility: [facility] Address:[address] [place], [place] [address]Performed By: #### 91764-8 ####[facility] LABIA [id number] [place] [address] [place] AMERICANeutrophils/100 WBC (Bld)61.1 % NormalThe [facility] on above:Order Comment: Specimen Type: BLOOD SPECIMENOrdering Facility: [facility] Address:[address] [place], [place] [address]Performed By: #### 05918-8 ####[facility] LABIA [id number] [place] [address] [place] AMERICANucleated RBC (Bld) [#/Vol]10*3/uLNormal<0.01[facility] on above:Order Comment: Specimen Type: BLOOD SPECIMENOrdering Facility: [facility] Address:[address] [place], [place] [address]Performed By: #### 62743-1 ####[facility] LABIA [id number] [place] [address] [place] Nucleated RBC/100 WBC (Bld) [Ratio]0.0 /100 WBCNormalCMercy Health – [facility] Comment on above:Order Comment: Specimen Type: BLOOD SPECIMENOrdering Facility: [facility] Address:[address] [place] [address] Performed By: #### 79619-1 ####[facility] LABIA [id number] [place] [address] [place] PK Platelet mean volume (Bld) [Entitic vol]9.4 fLNormal9.0-12.7CPremier Health [facility] on above:Order Comment: Specimen Type: BLOOD SPECIMENOrdering Facility: [facility] Address:[address] [place], [place] [address]Performed By: #### 81751-5 ####[facility] LABIA [id number] [place] [address] [place] PK Platelets (Bld) [#/Vol]395 10*3/dDAtychg186-726EirncyqbzThe [facility] on above:Order Comment: Specimen Type: BLOOD SPECIMENOrdering Facility: [facility] Address:[address] [place] [address] Performed By: #### 97510-8 ####[facility] LABIA [id number] [place] [address] [place] RBC (Bld) [#/Vol]4.62 10*6/uLNormal3.90-5.20[facility] on above:Order Comment: Specimen Type: BLOOD SPECIMENOrdering Facility: [facility] Address:[address] [place], [place] [address]Performed By: #### 35777-2 ####[facility] LABCLIA [id number] [address] AMERICAWBC (Bld) [#/Vol]7.95 10*3/uLNormal3.70-11.00[facility] HospitalComment on above:Order Comment: Specimen Type: BLOOD SPECIMENOrdering Facility: [facility] Address:[place], [place] [address]Performed By: #### 36602-6 ####[facility] LABCLIA [id number] [address] STREETECG01on 31-25-7130ZLJ95 Ventricular Rate : 96 BPM Atrial Rate : 96 BPM P-R Interval : 148 ms QRS Duration : 118 ms Q-T Interval : 390 ms QTC Calculation(Bazett) : 492 ms Calculated P [place] : 24 degrees Calculated R [place] : 59 degrees Calculated T [place] : 12 degrees NORMAL SINUS RHYTHM POSSIBLE LEFT ATRIAL ENLARGEMENT COMPLETE RIGHT BUNDLE BRANCH BLOCK ABNORMAL ECG Confirmed by NAFISA KAHN MD ([id number]) on 09/13/2023 4:18:57 PM NAME : QING FISCHER PID : [id number] : 1945 Gender : Female Race : [...] By : KRISTI VASQUEZ [facility] : [facility] PHYSICALon 09-07-2023 HISTORY PHYSICALHNO ID: [id number] Author: Kristi Vasquez APRN.MECHANICAL SERVICE SPECIALIST Service: ? Author Type: Nurse Practitioner Type: [...] Father Hypertension Sister Coronary Artery Disease Sister [place] in 30s Anesthesia Problems No Family History [...] COVID-19 vaccine, age 12+ yr, 2022- season (PFIZER-BIONTIntra-Cellular Therapies) 07/18/2022 Imm Admin: COVID-19 vaccine, age 12+ yr, bivalent (PFIZER-BIONTIntra-Cellular Therapies) 06/24/2021 Imm Admin: COVID-19 original vaccine, age [...] fevers. Neuro: No history of TIA's, stroke, ADMINISTRATIVE PROFESSIONAL tumor, impaired sensorium, hemiplegia, paraplegia or quadraplegia. No neurological symptoms or problems. Respiratory: No history of current cough or dyspnea, or pneumonia in the past 6 weeks. No history of respiratory/pulmonary symptoms or problems. Cardiovascular: No history of HTN requiring medication, no history of angina, CHF, MO, cardiac surgery or stents. Denies rest pain, gangrene or revascularization/amputation for PVD. No history of cardiovascular symptoms [...] Resp 16 Ht 5' (more content not included)...NormalCleveland Clinic Mercy HospitalSTAPH AUREUS PCRon 09-07-2023S. aureus and MRSA panel MOISES+probe (Nose)NormalNegativeThe [facility] on above:Order Comment: Specimen Type: SWAB OF INTERNAL NOSEOrdering Facility: [facility] Address: [address] [place], [place] [address]Result Comment: Negative for Staphylococcus aureus by PCR. Negative for MRSA by PCRPerformed By: #### SAPCR ####[facility] LABCLIA [id number] [facility] [place] [address] [place] [facility] HOSPITALTYPE AND SCREEN,30 DAYon 71-68-3668WQAZCwgqmpTsccgazspPremier Health [facility] on above:Order Comment: Specimen Type: BLOOD SPECIMEN [facility] Address: [address] [place], [place] [address]Performed By: #### [id number] #### [facility] CLIA [id number] [address] [place] [address] [place] AMERICAHISTORICAL AB SCR STATUS NegativeNormalCPremier Health [facility] on above:Order Comment: Specimen Type: BLOOD SPECIMEN [facility] Address: [address] [place], [place] [address]Performed By: #### [id number] #### [facility] CLIA [id number] [address] [place] [address] [place] AMERICARh Nom (Bld)PositiveNormal [facility] on above:Order Comment: Specimen Type: BLOOD SPECIMEN [facility] Address: [address] [place], [place] [address]Performed By: #### [id number] #### [facility] CLIA [id number] [address] [place] [address] [place] AMERICACNOVon [id number] Visit ([facility] QING FISCHER ([id number]) 1945 F LV Date Time Provider Department 08/29/23 1:[address] [facility] During your visit today, we recorded the following information about you: Tony Combs MD 08/30/2023 2:03 PM Signed [facility] NOTE DEPARTMENT OF ORTHOPAEDICS Evaluation with Tony Combs Jr., M.D. Patient Name: QING FISCHER Clinic No: [id number] : 1945 Qing Fischer is a pleasant [...] patient was offered a surgery/procedure at a [facility] facility. The surgeon/proceduralist and patient have [...] biceps, left, initial encou (more content not included)...[facility] 3D POST PROCESSING on 85-34-0424AO 3D POST PROCESSING* * *Final Report* * * DATE OF EXAM: Aug 01 2023 12:37PM KAITLIN Zhou63 - CT 3D POST PROCESSING / PROCEDURE [...] thoracic aorta. Mild coronary artery atherosclerotic calcification. Acoustical Installer images demonstrate reverse RIGHT total shoulder arthroplasty. IMPRESSION: Severe LEFT rotator cuff arthropathy. Stage Hand: WILLIAM Transcribe Date/Time: Aug 03 2023 2:24P Dictated by : FURQUAN BAQUI, DO This examination was interpreted and the report reviewed and electronically signed by: SERG LÓPEZ DO on Aug 03 2023 2:46PM EST [id number] Health Urbana Hospital HospitalCT SHOULDER WO IVCON LTon [id number] SHOULDER WO IVCON LT* * *Final Report* * * DATE OF [...] thoracic aorta. Mild coronary artery atherosclerotic calcification. Acoustical Installer images demonstrate reverse RIGHT total shoulder arthroplasty. IMPRESSION: Severe LEFT rotator cuff arthropathy. Stage Hand: WILLIAM Transcribe Date/Time: Aug 03 2023 2:24P Dictated by : SERG LÓPEZ DO This examination was interpreted and the report reviewed and electronically signed by: SERG LÓPEZ DO on Aug 03 2023 2:46PM EST [id number] Park [facility] Hospital [id number] Visit ([facility]) QING FISCHER ([id number]) 1945 F Date Time Provider Department 07/18/23 11:[address] [facility] During your visit today, we recorded the following information about you: Weight Height 62.1 kg 1.524 m Tony Combs MD 07/22/2023 10:43 AM Signed [facility] NOTE DEPARTMENT OF ORTHOPAEDICS Evaluation with Tony Combs Jr., M.D. Patient Name: QING FISCHER Clinic No: [id number] : 1945 This is an active 78 [...] Artery Disease Father Coronary Artery Disease Sister [place] in 30s PAST SURGICAL HISTORY Procedure Laterality [...] - Fully Assessed Reason for Visit: New [[id number]] Primary Visit Diagnosis:Rotator cuff tear arthropathy of left shoulder [M75.102, M12.812] Other Visit Diagnoses:Chronic right shoulder pain [M25.511, G89.29] Nontraumatic complete tear of rotator cuff, left [M75.122] Injury of tendon of long head of biceps, left, initial encounter [S46.102A] Closed displaced fracture of acromial process, unspecified laterality, sequela [S42.123S] Order(s):CT SHOULDER WO IVCON LEFT [[id number]] Order #: [id number] CT 3D POST PROCESSING [[id number]] Order #: [id number] FUTURE REFER TO PACC - PRE ANESTHESIA CONSULTATION CLINIC [[id number]] Order #: [id number]: 1 FUTURE XR SHOULDER GENERAL 3V OR MORE AP/TRUE AP/OTHER RIGHT [[id number]] Order #: [id number] FUTURE Prescriptions as of 07/22/2023 - estradiol(VAGIFEM 25 MCG VAGINAL TAB) Insert one(1) tablet vaginally twice weekly. - IBUPROFEN 600 MG TAB 1 Tab ORAL EVERY 6 HOURS NEEDED - multivitamins w-minerals/lut (more content not included)...[facility] HospitalXR SHLDR >/=3V AP/JULIETA AP/OTHR LTon 93-46-8399FJ SHLDR >/=3V AP/JULIETA AP/OTHR LT* * *Final Report* * * DATE OF EXAM: Jul 18 2023 11:31AM LUX 5252 - XR SHLDR >/=3V AP/JULIETA AP/OTHR LT / PROCEDURE REASON: Pain * * * * Physician Interpretation * * * * EXAMINATION / TECHNIQUE: XR SHLDR >/=3V AP/JULIETA AP/OTHR LT, XR SHLDR >/=3V AP/JULIETA AP/OTHR RT PATIENT/TECHNOLOGIST PROVIDED HISTORY: pt sts chronic shoulder pain (accession [id number]), RT SHOULDER PAIN/REPLACED 14 MONTHS AGO (accession [id number]) CLINICAL INFORMATION ( PROVIDED BY ORDERING CLINICIAN) [...] with associated acromial fragmentation from advanced remodeling. Stage Hand: WILLIAM Transcribe Date/Time: Jul 20 2023 10:15P Dictated by : MARYANN SUAREZ MD This examination was interpreted and the report reviewed and electronically signed by: MARYANN SUAREZ MD on Jul 20 2023 10:17PM EST [id number] Regional Medical Center South CampusXR SHLDR >/=3V AP/JULIETA AP/OTHR RTon [id number] SHLDR >/=3V AP/JULIETA AP/OTHR RT* * *Final Report* * * DATE OF EXAM: Jul 18 2023 12:37PM LUX 5253 - XR SHLDR >/=3V AP/JULIETA AP/OTHR RT / PROCEDURE REASON: multiple diagnoses * * * * Physician Interpretation * * * * EXAMINATION / TECHNIQUE: XR SHLDR >/=3V AP/JULIETA AP/OTHR LT, XR SHLDR >/=3V AP/JULIETA AP/OTHR RT PATIENT/TECHNOLOGIST PROVIDED HISTORY: pt sts chronic shoulder pain (accession [id number]), RT SHOULDER PAIN/REPLACED 14 MONTHS AGO (accession [id number]) CLINICAL INFORMATION ( PROVIDED BY ORDERING CLINICIAN) [...] with associated acromial fragmentation from advanced remodeling. Stage Hand: WILLIAM Transcribe Date/Time: Jul 20 2023 10:15P Dictated by : MARYANN SUAREZ MD This examination was interpreted and the report reviewed and electronically signed by: MARYANN SUAREZ MD on Jul 20 2023 10:17PM EST [id number] HospitalXR SHOULDER GENERAL 3V OR MORE AP/TRUE AP/OTHER RIGHTon 71-49-0563Rspebntae ClinicINSULINon 71-68-6728Lfwutly 17.0 uIU/mLNormal2.6-24.9[facility] HospitalComment on above:Performed By: #### CBC #### [facility] [address] [place] [address] Dr. Kashif Campos BLD IMMUNO SCREENon 63-50-7207YRKYMH BLOODNegativeNormal NEGATIVEBarberton Citizens HospitalComment on above:Performed By: #### OBSCRN #### [facility] [address] [place] [address] Dr. Kashif Guajardo RANDOM W/MICROSCOPICon 07-20-7147MTTDWZPCBSJKCRdmdtlbbOKDO SEENBarberton Citizens HospitalComment on above:Performed By: #### UAMIC #### [facility] [address] [place] [address] Dr. Kashif Hanson Ql (U)NegativeNormalNEGATIVEBarberton Citizens Hospital Comment on above:Performed By: #### UAMIC #### [facility] [address] [address] [address] Kashif MartinezCASTNONE SEENNormalNONE SEENBarberton Citizens HospitalComment on above:Performed By: #### UAMIC #### [facility] [address] [address] [address] Kashif Garcia (U)CLEARNormalCLEARBarberton Citizens HospitalComment on above: Performed By: #### UAMIC #### [facility] [address] [place] [address] Dr. Kashif Person (U)LT. YELLOWNormalYELLOWBarberton Citizens HospitalComment on above:Performed By: #### UAMIC #### [facility] [address] [address] [address] Kashif MartinezCrystals LM Nom (Urine sed)NONE SEENNormalNONE SEENBarberton Citizens HospitalComment on above:Performed By: #### UAMIC #### [facility] [address] [place] [address] Dr. Rowland ChangEpithelial cells LM Ql (Urine sed)FEWAbnormalNONE SEEN /RAREThe Doctors HospitalComment on above:Performed By: #### UAMIC #### [facility] [address] [place] [address] Dr. Kashif MartinezGlucose Ql (U)NegativeNormalNEGATIVEBarberton Citizens HospitalComment on above:Performed By: #### UAMIC #### [facility] [address] [place] [address] Dr. Kashif MartinezHemoglobin Ql (U)NegativeNormalNEGATIVEMartins Ferry Hospital on above:Performed By: #### UAMIC #### [facility] [address] [place] [address] Dr. Kashif MartinezKetones Ql (U)NegativeNormalNEGATIVEBarberton Citizens HospitalComment on above:Performed By: #### UAMIC #### [facility] [address] [place] [address] Dr. Kashif MartinezLEUKOCYTESTRACEAbnormalNEGATIVEBarberton Citizens HospitalComtrinity health [facility] on above:Performed By: #### UAMIC #### [facility] [address] [place] [address] Dr. Kashif MartinezMUCOUSNONE SEENNormalNONE SEENBarberton Citizens HospitalComment on above:Performed By: #### UAMIC #### [facility] [address] [place] [address] Dr. Kashif MartinezNitrite Ql (U)NegativeNormalNEGATIVEBarberton Citizens HospitalComment on above:Performed By: #### UAMIC #### [facility] [address] [place] [address] Dr. Kashif MartinezpH (U)6.0 [pH]Normal5-9[facility] on above: Performed By: #### UAMIC #### [facility] [address] [place] [address] Dr. Kashif KelleyEdccnBFX3-4Sispat6-3Beg [facility] on above:Performed By: #### UAMIC #### [facility] [address] [place] [address] Dr. Kashif MartinezSPEC GRAVITY<=1.002Ehyzkrax1.005-<=1.025[facility] Comment on above:Performed By: #### UAMIC #### [facility] [address] [place] [address] Dr. Kashif MartinezUA PROTEINNegativeNormalNEGATIVE/ TRACEThe [facility] Comment on above:Performed By: #### UAMIC #### [facility] [address] [place] [address] Dr. Kashif Pazbilinogen Qn (U)0.2 {Harvinder'U}/dLNormal0.2 - 1.0The Doctors HospitalComment on above:Performed By: #### UAMIC #### [facility] [address] [place] [address] Dr. Kashif MartinezWBC0-2AbnormalNONE SEENOhio State Harding Hospital on above: Performed By: #### UAMIC #### [facility] [address] [place] [address] Dr. Kashif Garza AUTO DIFFon 80-17-7862JHPZ #0.0 103/ulNormal0.0-0.1The [facility] on above:Performed By: #### CBC #### [facility] [address] [place] [address] Dr. Kashif MartinezBasophils/100 WBC (Bld)0.6 %Normal0.2-2.0[facility] Comment on above:Performed By: #### CBC #### [facility] [address] [place] [address] Dr. Rowland ChangETal #0.0 103/ulNormal0.0-0.7The [facility] HospitalComment on above: Performed By: #### CBC #### [facility] [address] [place] [address] Dr. Kashif Dasosinophils/100 WBC (Bld)0.6 %Critically low0.9-7.0The Doctors HospitalComment on above:Performed By: #### CBC #### [facility] [address] [place] [address] Dr. Kashif Dasrythrocyte distribution width (RBC) [Ratio]18.1 %Critically high 11.0-15.0The Doctors HospitalComment on above:Performed By: #### CBC #### [facility] [address] [place] [address] Dr. Kashif MartinezHematocrit (Bld) [Volume fraction]30.1 %Critically low36.0-48.0 The Doctors HospitalComment on above:Performed By: #### CBC #### [facility] [address] [place] [address] Dr. Kashif MartinezHemoglobin (Bld) [Mass/Vol]8.6 g/dLCritically low12.0-16.0The Doctors HospitalComment on above:Performed By: #### CBC #### [facility] [address] [place] [address] Dr. Kashif Gomez #0.02 10e3/ulNormal0.00-0.03The Doctors HospitalComment on above:Performed By: #### CBC #### [facility] [address] [place] [address] Dr. Kashif Gomez %0.3 %Normal0.0-0.5The Doctors HospitalComment on above: Performed By: #### CBC #### [facility] [address] [place] [address] Dr. Kashif JacksonH #1.4 103/ulNormal1.2-3.8The Doctors HospitalComment on above:Performed By: #### CBC #### [facility] [address] [place] [address] Dr. Kashif Borgesmphocytes/100 WBC (Bld)19.8 %Critically low20.5-60.0The Doctors HospitalComment on above:Performed By: #### CBC #### [facility] [address] [place] [address] Dr. Kashif Soliman DIFF REQNONormalThe Doctors HospitalComment on above: Performed By: #### CBC #### [facility] [address] [place] [address] Dr. Kashif Weir (RBC) [Entitic mass]19.2 pgCritically low26.7-34.0The Doctors HospitalComment on above:Performed By: #### CBC #### [facility] [address] [place] [address] Dr. Kashif Weir (RBC) [Mass/Vol]28.6 g/dLCritically low29.9-35.2The Doctors HospitalComment on above:Result Comment: Slight Hypochromosia SeenPerformed By: #### CBC #### [facility] [address] [place] [address] Dr. Kashif Weir (RBC) [Entitic vol]67.3 fLCritically low81.0-99.0The Doctors HospitalComment on above:Performed By: #### CBC #### [facility] [address] [place] [address] Dr. Kashif Velasquez #0.8 103/ulNormal0.3-0.8The Doctors HospitalComment on above:Performed By: #### CBC #### [facility] [address] [place] [address] Dr. Kashif Turnerocytes/100 WBC (Bld)11.1 %Normal1.7-12.0[facility] Comment on above:Performed By: #### CBC #### [facility] [address] [place] [address] Dr. Kashif Herring #4.7 103/ulNormal1.4-6.5The Doctors HospitalComment on above:Performed By: #### CBC #### [facility] [address] [place] [address] Dr. Yilan ChangNeutrophils/100 WBC (Bld)67.6 %Jiwiqx68.0-75.0The Doctors HospitalComment on above:Performed By: #### CBC #### [facility] [address] [address] [address] Kashif Fernandezlet mean volume (Bld) [Entitic vol]8.5 fLCritically low 9.5-13.5The Doctors HospitalComment on above:Performed By: #### CBC #### Doctors [facility] [address] [address] [address] Kashif MartinezPLT409 103/rjSuymzv747-978Kvk [facility]Com[facility] [place] on above: Performed By: #### CBC #### [facility] [address] [address] [address] Kashif MartinezRBC4.47 106/ulNormal4.20-5.40The Doctors HospitalComment on above:Performed By: #### CBC #### [facility] [address] [address] [address] Kashif MartinezWBC6.9 103/ulNormal4.0-11.0The [facility]Com[facility] [place] on above: Performed By: #### CBC #### [facility] [address] [address] [address] Kashif MartinezFREE T3on [id number] T33.47 pg/mlLNormal2.18-3.98The [facility]Com[facility] on above:Performed By: #### CMP, TSH, T7, LIPID #### [facility] [address] [place] [address] Dr. Kashif MartinezGLYCOHEMOGLOBIN A1Con [id number] RECOMMENDATIONSEE BELOWNormal The [facility]Com[facility] on above:Result Comment: ADA RECOMMENDED LIMIT 4.0 - 6.0 ADA THERAPEUTIC TARGET < 7.0 ACTION SUGGESTED > 7.0Performed By: #### CBC #### [facility] [address] [place] [address] Dr. Kashif MartinezGlucose [Mass/Vol]103 mg/dLNormalThe Doctors HospitalComment on above:Performed By: #### CBC #### [facility] [address] [address] [address] Kashif MartinezHbA1c (Bld) [Mass fraction]5.2 %Normal4.5-6.2[facility] on above:Performed By: #### CBC #### [facility] [address] [address] [address] Kashif Ballard [id number] [Mass/Vol]12.0 ug/dLCritically low 50.0-170.0The Doctors HospitalComment on above:Performed By: #### VITAD, IRON #### [facility] [address] [place] [address] Dr. Kashif Rey PROFILEon [id number]-HDL RATIO NORMSEE BELOWMercy HealthComment on above:Result Comment: 3.3 - 4.4 LOW RISK 4.4 - 7.1 AVERAGE RISK 7.1 - 11.0 MODERATE RISK >11.0 HIGH RISKPerformed By: #### CMP, TSH, T7, LIPID #### [facility] [address] [address] [address] Kashif Choiesterol [Mass/Vol]180 mg/dLNormal<=200[facility] Comment on above:Performed By: #### CMP, TSH, T7, LIPID #### [facility] [address] [address] [address] Kashif MartinezCholesterol in HDL [Mass/Vol]64 mg/dLCritically ndho04-24Yul [facility] on above:Performed By: #### CMP, TSH, T7, LIPID #### [facility] [address] [address] [address] Kashif Choiesterol in LDL [Mass/Vol]100.2 mg/dLMercy Health [facility] on above:Performed By: #### CMP, TSH, T7, LIPID #### [facility] [address] [address] [address] Kashif Ventura.total/Cholesterol in HDL [Mass ratio]2.8 {ratio} NormalThe Doctors HospitalComment on above:Performed By: #### CMP, TSH, T7, LIPID #### [facility] [address] [place] [address] Dr. Kashif Landin NORMAL> or = 60 mg/dl - LOW CARDIOVASCULAR RISK <40 mg/dl - HIGH CARDIOVASCULAR RISKMercy HealthComment on above:Performed By: #### CMP, TSH, T7, LIPID #### [facility] [address] [place] [address] Dr. Kashif MartinezLDL CALC NORMALSEE BELOWNoPaulding County HospitalComment on above:Result Comment: <100 mg/dl OPTIMAL 100 - 129 mg/dl NEAR OR ABOVE OPTIMAL 130 - 159 mg/dl BORDERLINE HIGH 160 - 189 mg/dl HIGH >190 mg/dl VERY HIGH Performed By: #### CMP, TSH, T7, LIPID #### [facility] [address] [place] [address] Dr. Kashif MartinezTriglyceride [Mass/Vol]79 mg/dLNormal<=150[facility] Comment on above:Performed By: #### CMP, TSH, T7, LIPID #### [facility] [address] [place] [address] Dr. Kashif MartinezVLDL CALC15.8 mg/dLNoPaulding County HospitalComment on above: Performed By: #### CMP, TSH, T7, LIPID #### [facility] [address] [place] [address] Dr. Kashif MartinezPROKit 14(COMP METB)on [id number] [Mass/Vol]3.8 g/dLNormal 3.4-5.0The Doctors HospitalComment on above:Performed By: #### CBC #### [facility] [address] [place] [address] Dr. Kashif MartinezAlbumin/Globulin [Mass ratio]0.9 {ratio}NormalThe Doctors HospitalComment on above:Performed By: #### CBC #### [facility] [address] [place] [address] Dr. Yilan ChangALP [Catalytic activity/Vol]100 U/TUnehvm06-373Yxy Doctors HospitalComment on above:Performed By: #### CBC #### [facility] [address] [place] [address] Dr. Kashif CarvalhoT [Catalytic activity/Vol]30 U/SRdmcal06-25Qyc Doctors HospitalComment on above:Performed By: #### CBC #### [facility] [address] [place] [address] Dr. Kashif Gastonon gap [Moles/Vol]14.5 mmol/LNormalBarberton Citizens Hospital Comment on above:Performed By: #### CBC #### [facility] [address] [place] [address] Dr. Kashif MartinezAST [Catalytic activity/Vol]22 U/TIodbso16-86Qnw Doctors HospitalComment on above:Performed By: #### CBC #### [facility] [address] [place] [address] Dr. Kashif MartinezBilirubin [Mass/Vol]0.4 mg/dLNormal0.2-1.0[facility] Comment on above:Performed By: #### CBC #### [facility] [address] [place] [address] Dr. Kashif MartinezCalcium [Mass/Vol]9.0 mg/dLNormal8.5-10.1[facility] Comment on above:Performed By: #### CBC #### [facility] [address] [place] [address] Dr. Kashif MartinezChloride [Moles/Vol]104 mmol/YVawyai22-085Bvg [facility] Comment on above:Performed By: #### CBC #### [facility] [address] [place] [address] Dr. Kashif MartinezCO2 [Moles/Vol]26.7 mmol/YHjyatv30.0-32.0[facility] Comment on above:Performed By: #### CBC #### [facility] [address] [place] [address] Dr. Kashif MartinezCreatinine [Mass/Vol]0.75 mg/dLNormal0.55-1.02The Doctors HospitalComment on above:Performed By: #### CBC #### [facility] [address] [address] [address] Kashif DasGFR-AF BHUTANESE>60Normal>=60The Doctors HospitalComment on above:Performed By: #### CBC #### [facility] [address] [address] [address] Kashif DasGFR-NON AF BHUTANESE>60Normal>=60The Doctors HospitalComment on above:Performed By: #### CBC #### [facility] [address] [address] [address] Kashif MartinezGlobulin (S) [Mass/Vol]4.1 g/dLNormalThe Doctors HospitalComment on above:Performed By: #### CBC #### [facility] [address] [address] [address] Kashif MartinezGlucose [Mass/Vol]104 mg/fVPkspyt12-818LslBarberton Citizens Hospital Comment on above:Performed By: #### CBC #### [facility] [address] [address] [address] Kashif MartinezPotassium [Moles/Vol]4.2 mmol/LNormal3.5-5.1[facility] Comment on above:Performed By: #### CBC #### [facility] [address] [address] [address] Kashif MartinezProtein [Mass/Vol]7.9 g/dLNormal6.4-8.2[facility] Comment on above:Performed By: #### CBC #### [facility] [address] [address] [address] Kashif MartinezSodium [Moles/Vol]141 mmol/OQkwyjr342-156Rwi [facility] Comment on above:Performed By: #### CBC #### [facility] [address] [address] [address] Kashif MartinezUrea nitrogen [Mass/Vol]18.0 mg/dLNormal7.0-18.0The Doctors HospitalComment on above:Performed By: #### CBC #### [facility] [address] [place] [address] Dr. Kashif MartinezUrea nitrogen/Creatinine [Mass ratio]24.0 mg/mgNoPaulding County HospitalComtrinity health [place] on above:Performed By: #### CBC #### [facility] [address] [place] [address] Dr. Kashif MartinezT4on [id number] [Mass/Vol]11.30 ug/dLNormal4.80-13.90The Doctors HospitalComment on above:Performed By: #### CBC #### [facility] [address] [place] [address] Dr. Kashif MartinezTSHojanny 77-86-9054ZRQ0.954 uIU/mLNormal0.358-3.740The [facility] HospitalComtr[facility] health [place] on above:Performed By: #### CMP, TSH, T7, LIPID #### [facility] [address] [place] [address] Dr. Kashif MartinezVITAMIN D 25 OHon [id number] D 25-OH66.3 ng/mLNormalBarberton Citizens HospitalComtrinity health [place] on above:Performed By: #### VITAD, IRON #### [facility] [address] [place] [address] Dr. Kashif AmaroT D RANGESSEE BELOWMercy HealthComtrinity health [place] on above: Result Comment: <20 ng/mL Vit D deficient 20 - <30 ng/mL Vit D insufficient 30 - 100 ng/mL Vit D sufficient >100 ng/mL Potential ToxicityPerformed By: #### VITAD, IRON #### [facility] [address] [place] [address] Dr. Kashif MartinezXR CSPINE 2_3 VIEWSon [id number] CSPINE 2_3 VIEWSEXAMINATION: XR CSPINE 2_3 VIEWS HISTORY: Neck pain , right [...] Electronically authenticated by: TA TERRELL Date: 2022-10-26 06:29[facility] HealthXR CSPINE MIN 4 VIEWSon [id number] CSPINE MIN 4 VIEWS EXAMINATION: XR CSPINE [...] Electronically authenticated by: TA TERRELL Date: 2022-10-19 09:40[facility] HealthXR TSPINE 3 VIEWSon [id number] TSPINE 3 VIEWSEXAMINATION: XR TSPINE 3 VIEWS HISTORY: Thoracic back pain COMPARISON: [...] authenticated by: TA TERRELL Date: 2022-10-19 09:[address] [place], [place] [address]WOUND CULTURE, AEROBIC AND ANAEROBICon [id number] CULTURE, AEROBIC AND ANAEROBICSpecimen source XXX: SHOULDER RIGHT 2 Performed at [address] [address] Service Cmnt XXX-Imp: HOLD 2 WEEKS FOR P ACNES Performed at [address] [address] Microscopic observation: NO ORGANISMS SEEN 1+ WBC Bacteria identified: NO GROWTH 14 DAYS Performed at [facility],[address] [place] [address] : FINAL 05/24/2022[facility] HospitalComment on above:Performed By: #### WNDA #### [facility] [address] [place], [place] [address]ATHIH CULTURE, AEROBIC AND ANAEROBICSpecimen source XXX: SHOULDER RIGHT 4 Performed at [address] [address] Service Cmnt XXX-Imp: HOLD 2 WEEKS FOR P ACNES Performed at [address] [address] Microscopic observation: NO ORGANISMS SEEN NO WBC SEEN Bacteria identified: NO GROWTH 14 DAYS Performed at [facility],[address] [place] [address] : FINAL 05/24/2022[facility] HospitalComment on above:Performed By: #### WNDA #### [facility] [address] [place], [place] [address]XKBYR CULTURE, AEROBIC AND ANAEROBICSpecimen source XXX: SHOULDER RIGHT 3 Performed at [address] [address] Service Cmnt XXX-Imp: HOLD 2 WEEKS FOR P ACNES Performed at [address] [address] Microscopic observation: NO ORGANISMS SEEN NO WBC SEEN Bacteria identified: NO GROWTH 14 DAYS Performed at [facility],[address] [place] [address] : FINAL 05/24/2022[facility] HospitalComment on above:Performed By: #### WNDA #### [facility] [address] [place], [place] [address]QBFGD CULTURE, AEROBIC AND ANAEROBICSpecimen source XXX: SHOULDER RIGHT 1 Performed at [address] [address] Service Cmnt XXX-Imp: HOLD 2 WEEKS FOR P ACNES Performed at [address] [address] Microscopic observation: NO ORGANISMS SEEN 2+ WBC Bacteria identified: NO GROWTH 14 [place]YS [place] [address] : FINAL 05/24/2022[facility] HospitalComment on above:Performed By: #### WNDA #### [place], [place] [address]SARS-CoV-2,INFLUENZA A/B NUCLEIC ACID TESTon [id number] DISCLAIMERFaxton Hospitalment on above:Result Comment: This test has been authorized by [...] is terminated or revoked sooner. Performed at [address] [address]FLU A by PCRNegativeNormal [facility], Cancer CenterFLU B by PCRNegativeJohn R. Oishei Children's HospitalARS-CoV-2 (COVID- 19) RNA MOISES+probe Ql (Unsp spec)NegativeNormalNEGOhiohealth Arthur G.H. Bing, Md, Cancer CenterURINE CULTURE on 32-70-1783Kvklbspk identified Cx Nom (U)Specimen source XXX: CLEAN VOIDED MIDSTREAM Performed at [address] [address] Service Cmnt XXX-Imp: NONE Reflexed from [id number] Performed at [address] [address] CC Number Ur: 10,000-50,000 CFU/ml Bacteria identified: NORMAL UROGENITAL VANCE [place] [address] : FINAL 04/29/2022[facility] HospitalComment on above:Performed By: #### UR #### [address] [address] [address] [place], [place] [address]BKQ with Diffon [id number] IMMATURE NEUT0.03 K/ULNormal 0.0-0.1LOhioHealth Grant Medical CenterABS BASO0.02 K/ULNormal0.00-0.22[facility], Cancer CenterABS EOS0.29 K/ULNormal0-0.45[facility], Cancer CenterABS NEUTROPHILS5.33 K/ULNormal1.8-7.7 [facility] CenterABS.NEUT.CALCULATED5.33 K/ULNormalLFormerly [facility] Hospital SystemComment on above:Result Comment: Performed at [facility] [address] [facility] [address] Basophils/100 WBC (Bld)0.20 %Normal0-1LOhioHealth Grant Medical CenterDIFF TYPEAUTO DIFFNormal [facility] CenterEosinophils/100 WBC (Bld)3.40 %High0-3[facility] Erythrocyte distribution width (RBC) [Ratio]13.0 %Wfnkow45.7-15.0[facility] Md, Cancer CenterHematocrit (Bld) [Volume fraction]43.8 %Elphdb29-25KwazOhiohealth Arthur G.H. Bing, Md, Cancer Center Hemoglobin (Bld) [Mass/Vol]14.3 g/wWBrnayt03.0-15.0[facility] Md, Cancer CenterLymphocytes (Bld) [#/Vol]1.93 10*3/uLNormal1.2-3.2LOhioHealth Grant Medical CenterLymphocytes/100 WBC (Bld)22.50 %Zpzmai47-23VinhOhiohealth Arthur G.H. Bing, Md, Cancer CenterMCH (RBC) [Entitic mass]29.9 pgNormal 26-34[facility] Md, Cancer CenterMCHC32.6 %Nhpsqj26-08GkeuOhiohealth Arthur G.H. Bing, Md, Cancer CenterMCV (RBC) [Entitic vol]91.4 lOEenufx24-177Miuv Health SystemMEAN PLT VOL8.9 CUNormal7.0-12.6[facility], Cancer CenterMonocytes (Bld) [#/Vol]0.96 10*3/uLHigh0-0.8[facility] Monocytes/100 WBC (Bld)11.20 %High0-8[facility], Cancer CenterNeutrophils/100 WBC (Bld) 0.40 %Normal0.0-1.0[facility], Cancer CenterNeutrophils/100 WBC (Bld)62.30 %Idrqhw70-65 [facility] SystemPlatelets (Bld) [#/Vol]340 10*3/xLLrohtw488-808Greg Health SystemRBC (Bld) [#/Vol]4.79 10*6/uLNormal4.0-4.9[facility], Cancer CenterRDW-SD44.8 FL Ltwtip22.0-54.0[facility], Cancer CenterWBC (Bld) [#/Vol]8.6 10*3/uLNormal4.5-11.0[facility], Cancer CenterCOMPREHENSIVE METABOLIC PANELon 45-85-9097Zdmxbtr [Mass/Vol]4.7 g/dLNormal3.5-5.0[facility], Cancer CenterAlbumin/Globulin [Mass ratio]1.7 {ratio} Normal1.5-3.0[facility], Cancer CenterALP [Catalytic activity/Vol]101 U/QIgofsv75-239 [facility] CenterALT [Catalytic activity/Vol]20 U/LNormal5-40[facility] Anion gap [Moles/Vol]11 mmol/LNormal0-19[facility], Cancer CenterAST [Catalytic activity/Vol]24 U/LNormal5-40[facility], Cancer CenterBilirubin [Mass/Vol]0.2 mg/dL Normal0.1-1.2LOhioHealth Grant Medical CenterCalcium [Mass/Vol]10.0 mg/dLNormal8.5-10.4[facility], Cancer CenterChloride [Moles/Vol]107 mmol/APeaaiq67-056GttjOhiohealth Arthur G.H. Bing, Md, Cancer CenterCO2 [Moles/Vol]25 mmol/UGpxxka35-76TfzsOhiohealth Arthur G.H. Bing, Md, Cancer CenterCreatinine [Mass/Vol]0.6 mg/dL Normal0.4-1.6[facility], Cancer CenterESTIMATED GFR92 mL/min/1.73 i8AuavzvDwskUnited Memorial Medical CenterComment on above:Result Comment: CALCULATIONS OF ESTIMATED GFR ARE PERFORMED USING THE 2020 CKD-EPI STUDY REFIT EQUATION WITHOUT THE RACE VARIABLE FOR THE IDMS-TRACEABLE CREATININE METHODS. https://jasn.asnjournals.org/content//ASN.4457848541 Performed at [address] [address]Ycsnovyz (S) [Mass/Vol]2.8 g/dLNormal1.9-3.7[facility], Cancer CenterGlucose [Mass/Vol]92 mg/cEVnrjaa76-54XmzdOhiohealth Arthur G.H. Bing, Md, Cancer CenterPotassium [Moles/Vol]4.5 mmol/LNormal3.4-5.1LOhioHealth [facility] Center Protein [Mass/Vol]7.5 g/dLNormal5.9-7.9Memorial Hospitalodium [Moles/Vol]143 mmol/MTvhslt428-346Zsog Health SystemUrea nitrogen [Mass/Vol]25 mg/dLNormal8-25 [facility], Cancer CenterUrea nitrogen/Creatinine [Mass ratio]41.7 mg/mgHigh8-21[facility], Cancer CenterHEMOGLOBIN A1con [id number] (Bld) [Mass fraction]5.4 %Normal 4.0-6.0[facility]. Bing, Md, Cancer CenterComment on above:Result Comment: Hemoglobin A1C levels are related to mean blood [...] mg/dl 10% ............................... 240 mg/dl Performed at [address] [address]Kiqzakxpq By: #### GLYC #### [facility] [address] [address]OI-OOFOHE TO CULTUREon 78-63-5807WWLBDIWVWMXFqvmerAncx Health SystemEPINoUnited Memorial Medical CenterComment on above:Result Comment: MODERATE TRANSITIONAL MODERATE SQUAMOUSRBCOCCNormal0-3[facility], Cancer CenterUrinalysis dipstick W Reflex Microscopic panel (U)MANUAL MICROSCOPIC URINESNoUnited Memorial Medical CenterWBC5-9 Normal0-3[facility] Cancer CenterOTHEREdgewood State HospitalComment on above:Result Comment: PRESENT MUCOUS PRESENT URINE FAT Performed at [address] [address]Cqxzsuxb identified Cx Nom (U)CULTURE BEING ORDERED BASED ON LEUKOCYTE ESTERASEEdgewood State Hospital Comment on above:Result Comment: CULTURE BEING ORDERED BASED ON LEUKOCYTE ESTERASE Performed at [address] [address]GCUWDuzdsucdMmqzfnQRGInss Health SystemClarity (U)CLEARNoUnited Memorial Medical CenterColor (U)[facility] HospitalGLUCNegativeNoMoccasin Bend Mental Health InstituteHemoglobin Ql (U)Negative NormalNEGOhiohealth Arthur G.H. Bing, Md, Cancer CenterKETNegativeHardin County Medical CenterLEUKTRACE AbnormalNEGNovant Health Presbyterian Medical Center SystemNITNegativeFormerly [facility] SystempH (U)5.5 [pH]Normal4.6-8.0[facility] CenterPROTNegativeNormRiverside [facility]appahann[facility] SystemSP GRAV,URINE1.467Eiusgx1.005-1.030[facility] SystemURO0.2 MG/DLNormal0-1.0[facility] SystemINSULINon 93-11-7671Akimnzn87.0 uIU/mLNormal2.6-24.9The Doctors HospitalComment on above:Performed By: #### CBC #### [facility] [address] [address] [address] Kashif MartinezT4 LABCORPon [id number] [Mass/Vol]9.2 ug/dLNormal4.5-12.0The Doctors HospitalComment on above:Performed By: #### CBC #### [facility] [address] [place] [address] Dr. Kashif Garza AUTO DIFFon [id number] #0.0 103/ulNormal0.0-0.1The Doctors HospitalComment on above:Performed By: #### CBC #### [facility] [address] [place] [address] Dr. Kashif MartinezBasophils/100 WBC (Bld)0.4 %Normal0.2-2.0[facility] Comment on above:Performed By: #### CBC #### [facility] [address] [place] [address] Dr. Rowland ChangETal #0.0 103/ulNormal0.0-0.7The Doctors HospitalComment on above: Performed By: #### CBC #### [facility] [address] [place] [address] Dr. Kashif Dasosinophils/100 WBC (Bld)0.1 %Critically low0.9-7.0The Doctors HospitalComment on above:Performed By: #### CBC #### [facility] [address] [place] [address] Dr. Kashif Dasrythrocyte distribution width (RBC) [Ratio]13.7 %Wgdony65.0-15.0 The Doctors HospitalComment on above:Performed By: #### CBC #### [facility] [address] [place] [address] Dr. Kashif MartinezHematocrit (Bld) [Volume fraction]42.0 %Cuzojb07.0-48.0The Doctors HospitalComment on above:Performed By: #### CBC #### [facility] [address] [place] [address] Dr. Kashif MartinezHemoglobin (Bld) [Mass/Vol]13.6 g/qUXnywmq66.0-16.0The Doctors HospitalComment on above:Performed By: #### CBC #### [facility] [address] [place] [address] Dr. Kashif Gomez #0.03 10e3/ulNormal0.00-0.03The Doctors HospitalComment on above:Performed By: #### CBC #### [facility] [address] [place] [address] Dr. Kashif Gomez %0.4 %Normal0.0-0.5The Doctors HospitalComment on above: Performed By: #### CBC #### [facility] [address] [place] [address] Dr. Kashif Chin #1.2 103/ulNormal1.2-3.8The Doctors HospitalComment on above:Performed By: #### CBC #### [facility] [address] [place] [address] Dr. Kashif Jacksonhocytes/100 WBC (Bld)16.4 %Critically low20.5-60.0The [facility] HospitalComtrinity health livonia on above:Performed By: #### CBC #### [facility] [address] [place] [address] Dr. Kashif TurnerUAL DIFF REQNONormalThe Doctors HospitalComment on above: Performed By: #### CBC #### [facility] [address] [place] [address] Dr. Kashif Weir (RBC) [Entitic mass]29.6 qaMkkeyk03.7-34.0The Doctors HospitalComment on above:Performed By: #### CBC #### [facility] [address] [place] [address] Dr. Kashif Weir (RBC) [Mass/Vol]32.4 g/wSWmatwp10.9-35.2The Doctors HospitalComment on above:Performed By: #### CBC #### [facility] [address] [place] [address] Dr. Kashif Weir (RBC) [Entitic vol]91.5 lZTmppwb79.0-99.0The Doctors HospitalComment on above:Performed By: #### CBC #### [facility] [address] [address] [address] Kashif Velasquez #0.8 103/ulNormal0.3-0.8The Doctors HospitalComment on above:Performed By: #### CBC #### [facility] [address] [address] [address] Kashif Turnerocytes/100 WBC (Bld)10.5 %Normal1.7-12.0[facility] Comment on above:Performed By: #### CBC #### [facility] [address] [place] [address] Dr. Kashif Herring #5.3 103/ulNormal1.4-6.5The Doctors HospitalComment on above:Performed By: #### CBC #### [facility] [address] [place] [address] Dr. Kashif Quirozutrophils/100 WBC (Bld)72.2 %Pxcapn50.0-75.0The Doctors HospitalComment on above:Performed By: #### CBC #### [facility] [address] [place] [address] Dr. Kashif Lynn mean volume (Bld) [Entitic vol]8.8 fLCritically low 9.5-13.5The Doctors HospitalComment on above:Performed By: #### CBC #### [facility] [address] [place] [address] Dr. Kashif MartinezPLT340 103/zhMzgjsc638-330Zhx Doctors HospitalComment on above: Performed By: #### CBC #### [facility] [address] [place] [address] Dr. Kashif MartinezRBC4.59 106/ulNormal4.20-5.40The Doctors HospitalComment on above:Performed By: #### CBC #### [facility] [address] [place] [address] Dr. Kashif MartinezWBC7.3 103/ulNormal4.0-11.0The Doctors HospitalComment on above: Performed By: #### CBC #### [facility] [address] [place] [address] Dr. Kashif Mcgraw THYROXINE INDEX T7on 22-63-6673AUJ5.52Naztjb7.30-4.50[facility] on above:Performed By: #### CMP, TSH, T7, LIPID #### [facility] [address] [place] [address] Dr. Kashif MartinezT3U33.0 %Bynjej59.0-39.0The Doctors HospitalComment on above: Performed By: #### CMP, TSH, T7, LIPID #### [facility] [address] [place] [address] Dr. Kashif MartinezT4 [Mass/Vol]9.20 ug/dLNormal4.80-13.90[facility] Comment on above:Performed By: #### CMP, TSH, T7, LIPID #### [facility] [address] [place] [address] Dr. Kashif MartinezGLYCOHEMOGLOBIN A1Con [id number] RECOMMENDATIONSEE BELOWNormal The Doctors HospitalComment on above:Result Comment: ADA RECOMMENDED LIMIT 4.0 - 6.0 ADA THERAPEUTIC TARGET < 7.0 ACTION SUGGESTED > 7.0Performed By: #### CBC #### [facility] [address] [place] [address] Dr. Kashif MartinezGlucose [Mass/Vol]103 mg/dLNormalThe Doctors HospitalComtrinity health [place]onia on above:Performed By: #### CBC #### [facility] [address] [place] [address] Dr. Kashif MartinezHbA1c (Bld) [Mass fraction]5.2 %Normal4.5-6.2The Doctors HospitalComment on above:Performed By: #### CBC #### [facility] [address] [place] [address] Dr. Kashif [place] 08-88-6122Wyxc [Mass/Vol]85.0 ug/pVPxahky16.0-170.0The Doctors HospitalComment on above:Performed By: #### CBC #### [facility] [address] [address] [address] Kashif KentID PROFILEon [id number]-HDL RATIO NORMSMercy Health St. Elizabeth Board[facility] HospitalComtrinity health [place] on above:Result Comment: 3.3 - 4.4 LOW RISK 4.4 - 7.1 AVERAGE RISK 7.1 - 11.0 MODERATE RISK >11.0 HIGH RISKPerformed By: #### CMP, TSH, T7, LIPID #### [facility] [address] [address] [address] Kashif MartinezCholesterol [Mass/Vol]219 mg/dLCritically high<=200The [facility] on above:Performed By: #### CMP, TSH, T7, LIPID #### [facility] [address] [address] [address] Kashif Choiesterol in HDL [Mass/Vol]51 mg/yBHiafyg18-36SiuOhio State Harding Hospital on above:Performed By: #### CMP, TSH, T7, LIPID #### [facility] [address] [address] [address] Kashif Choiesterol in LDL [Mass/Vol]141.4 mg/dLMercy HealthComtrinity health [place] on above:Performed By: #### CMP, TSH, T7, LIPID #### [facility] [address] [address] [address] Kashif Choiesterjon.total/Cholesterol in HDL [Mass ratio]4.3 {ratio} NormalOhio State Harding Hospital on above:Performed By: #### CMP, TSH, T7, LIPID #### [facility] [address] [address] [address] Kashif MartinezHDCristopher NORMAL> or = 60 mg/dl - LOW CARDIOVASCULAR RISK <40 mg/dl - HIGH CARDIOVASCULAR RISKMercy HealthComtrinity health [place] on above:Performed By: #### CMP, TSH, T7, LIPID #### [facility] [address] [address] [address] Kashif MartinezLDL CALC NORMALSEE [facility] CampusComtr[facility] [place] on above:Result Comment: <100 mg/dl OPTIMAL 100 - 129 mg/dl NEAR OR ABOVE OPTIMAL 130 - 159 mg/dl BORDERLINE HIGH 160 - 189 mg/dl HIGH >190 mg/dl VERY HIGH Performed By: #### CMP, TSH, T7, LIPID #### [facility] [address] [address] [address] Kashif MartinezTriglyceride [Mass/Vol]133 mg/dLNormal<=150[facility] Comment on above:Performed By: #### CMP, TSH, T7, LIPID #### [facility] [address] [address] [address] Kashif MartinezVLDL CALC26.6 mg/dLNormalThe Doctors HospitalComment on above: Performed By: #### CMP, TSH, T7, LIPID #### [facility] [address] [place] [address] Dr. Kashif Pino 14(COMP METB)on 67-81-9874Ilrwrmp [Mass/Vol]3.7 g/dLNormal 3.4-5.0The Doctors HospitalComment on above:Performed By: #### CMP, TSH, T7, LIPID #### [facility] [address] [place] [address] Dr. Kashif MartinezAlbumin/Globulin [Mass ratio]1.0 {ratio}NormalThe Doctors HospitalComment on above:Performed By: #### CMP, TSH, T7, LIPID #### [facility] [address] [place] [address] Dr. Kashif Soto [Catalytic activity/Vol]83 U/KHoxpmk55-568Oob Doctors HospitalComment on above:Performed By: #### CMP, TSH, T7, LIPID #### [facility] [address] [place] [address] Dr. Kashif White [Catalytic activity/Vol]30 U/LUinubp55-30Lsf [facility] Hospitalment on above:Performed By: #### CMP, TSH, T7, LIPID #### [facility] [address] [place] [address] Dr. Kashif Landis gap [Moles/Vol]14.3 mmol/LNormalThe [facility] Comment on above:Performed By: #### CMP, TSH, T7, LIPID #### [facility] [address] [address] [address] Kashif MartinezAST [Catalytic activity/Vol]21 U/ZIhosqe33-03Mlt Doctors HospitalComment on above:Performed By: #### CMP, TSH, T7, LIPID #### [facility] [address] [address] [address] Kashif MartinezBilirubin [Mass/Vol]0.4 mg/dLNormal0.2-1.0[facility] Comment on above:Performed By: #### CMP, TSH, T7, LIPID #### [facility] [address] [place] [address] Dr. Kashif MartinezCalcium [Mass/Vol]9.2 mg/dLNormal8.5-10.1[facility] Comment on above:Performed By: #### CMP, TSH, T7, LIPID #### [facility] [address] [place] [address] Dr. Kashif MartinezChloride [Moles/Vol]106 mmol/CZxdrlw00-266Fwh [facility] Comment on above:Performed By: #### CMP, TSH, T7, LIPID #### [facility] [address] [place] [address] Dr. Kashif MartinezCO2 [Moles/Vol]26.2 mmol/HMsvyyy52.0-32.0[facility] Comment on above:Performed By: #### CMP, TSH, T7, LIPID #### [facility] [address] [place] [address] Dr. Kashif MartinezCreatinine [Mass/Vol]0.70 mg/dLNormal0.55-1.02The Doctors HospitalComment on above:Performed By: #### CMP, TSH, T7, LIPID #### [facility] [address] [place] [address] Dr. Kashif DasGFR-AF BHUTANESE>60Normal>=60The Doctors HospitalComment on above:Performed By: #### CMP, TSH, T7, LIPID #### [facility] [address] [address] [address] Kashif DasGFR-NON AF BHUTANESE>60Normal>=60The Doctors HospitalComment on above:Performed By: #### CMP, TSH, T7, LIPID #### [facility] [address] [address] [address] Kashif MartinezGlobulin (S) [Mass/Vol]3.6 g/dLNormalThMount Carmel Health SystemComment on above:Performed By: #### CMP, TSH, T7, LIPID #### [facility] [address] [address] [address] Kashif MartinezGlucose [Mass/Vol]101 mg/kXFfayfg57-094Vmb [facility] Comment on above:Performed By: #### CMP, TSH, T7, LIPID #### [facility] [address] [place] [address] Dr. Kashif MartinezPotassium [Moles/Vol]4.5 mmol/LNormal3.5-5.1[facility] Comment on above:Performed By: #### CMP, TSH, T7, LIPID #### [facility] [address] [address] [address] Kashif MartinezProtein [Mass/Vol]7.3 g/dLNormal6.4-8.2[facility] Comment on above:Performed By: #### CMP, TSH, T7, LIPID #### [facility] [address] [address] [address] Kashif MartinezSodium [Moles/Vol]142 mmol/MOgbhcf383-373Yof [facility] Comment on above:Performed By: #### CMP, TSH, T7, LIPID #### [facility] [address] [address] [address] Kashif MartinezUrea nitrogen [Mass/Vol]18.0 mg/dLNormal7.0-18.0The Doctors HospitalComment on above:Performed By: #### CMP, TSH, T7, LIPID #### [facility] [address] [address] [address] Kashif MartinezUrea nitrogen/Creatinine [Mass ratio]25.7 mg/mgNoNovant Health Forsyth Medical Centerevue HospitalComtrinity health [place] on above:Performed By: #### CMP, TSH, T7, LIPID #### [facility] [address] [place] [address] Dr. Kashif Clark 56-32-5262IWL2.760 uIU/mLNormal0.358-3.740[facility] on above:Performed By: #### CMP, TSH, T7, LIPID #### [facility] [address] [place] [address] Dr. Kashif PATIÑOMercy Health St. Elizabeth Boardman HospitalComment on above: Result Comment: <0.34 UIU/ml HYPERTHYROID 0.34-5.60 UIU/ml EUTHYROID >5.60 UIU/ml HYPOTHYROIDPerformed By: #### CMP, TSH, T7, LIPID #### [facility] [address] [place] [address] Dr. Kashif MartinezVITAMIN D 25 OHon 09-44-2090ACC D 25-OH68.1 ng/mLNormalBarberton Citizens HospitalComtrinity health [place] on above:Performed By: #### CBC #### [facility] [address] [place] [address] Dr. Kashif Childers [facility] CampusComtr[facility] health [place] on above: Result Comment: <20 ng/mL Vit D deficient 20 - <30 ng/mL Vit D insufficient 30 - 100 ng/mL Vit D sufficient >100 ng/mL Potential ToxicityPerformed By: #### CBC #### [facility] [address] [place] [address] Dr. Kashif Castano 92-37-4758Whlir gap [Moles/Vol]10 mmol/L10 - 20 mmol/L [facility]HealthCalcium [Mass/Vol]9.2 mg/dL8.4 - 10.2 mg/dLOhioHealthChloride [Moles/Vol]110 mmol/LHigh98 - 108 mmol/LOhioHealthCreatinine [Mass/Vol]0.73 mg/dL0.6 - 1.2 mg/dLOhioHealthGFR/1.73 sq M predicted among non-blacks MDRD (S/P/Bld) [Vol rate/Area]The eGFR should be used for monitoring renal function only and not for medication dosing.OhioHealthGFR/1.73 sq M.predicted CKD-EPI (S/P/Bld) [Vol rate/Area]81>=60 mL/min/1.73 g3KnwzTsumxyVjuowag [Mass/Vol]117 mg/tFGfvz56 - 99 mg/dLOhioHealthHCO3 [Moles/Vol]24 mmol/L21 - 32 mmol/L OhioHealthInterpretation and review of laboratory resultsAbnormalOhioHealth Potassium [Moles/Vol]3.8 mmol/L3.5 - 5.1 mmol/LOhioHealthSodium [Moles/Vol]140 mmol/L135 - 145 mmol/LOhioHealthUrea nitrogen [Mass/Vol]16 mg/dL8 - 25 mg/dL OhioHealthUrea nitrogen/Creatinine [Mass ratio]21.9 mg/mgHighOhioHealthCBC WITH AUTO DIFFERENTIALon 63-30-9507Kzmishbyx (Bld) [#/Vol]0.02 10*3/uLOhioHealth Basophils/100 WBC (Bld)0.3 %OhioHealthEosinophils (Bld) [#/Vol]0.04 10*3/uL OhioHealthEosinophils/100 WBC (Bld)0.6 %OhioHealthErythrocyte distribution width (RBC) [Entitic vol]15.8 %High11.6 - 14.8 %OhioHealthHematocrit (Bld) [Volume fraction]42.1 %36 - 46 %OhioHealthHemoglobin (Bld) [Mass/Vol]13.7 g/dL12 - 16 g/dLOhioHealthImmature granulocytes (Bld) [#/Vol]0.02 10*3/uLOhioHealthImmature granulocytes/100 WBC (Bld)0.30 %OhioHealthComment on above:The IG parameter is the percentage of metamyelocytes, myelocytes, and promyelocytes.Interpretation and review of laboratory resultsAbnormalOhioHealthLymphocytes (Bld) [#/Vol]1.24 10*3/uLOhioHealthLymphocytes/100 WBC (Bld)17.8 %OhioHealthMCH (RBC) [Entitic mass]27.3 pg26 - 34 pgOhioHealthMCHC (RBC) [Mass/Vol]32.5 g/dL31 - 37 g/dL OhioFirelands Regional Medical CenterMCV (RBC) [Entitic vol]83.9 fL80 - 100 fLOhioHealthMonocytes (Bld) [#/Vol]0.82 10*3/uLOhioHealthMonocytes/100 WBC (Bld)11.8 %OhioHealthNeutrophils (Bld) [#/Vol]4.82 10*3/uLOhioHealthNeutrophils/100 WBC (Bld)69.2 %[facility] Nucleated RBC (Bld) [#/Vol]0.00 10*3/uLOhioHealthNucleated RBC/100 WBC (Bld) [Ratio]0.0 %OhioFirelands Regional Medical CenterPlatelet mean volume (Bld) [Entitic vol]8.2 fLLow9 - 15.5 fLOhioHealthPlatelets (Bld) [#/Vol]273 10*3/uLOhioHealthRBC (Bld) [#/Vol]5.02 10*6/uLOhioHealthWBC (Bld) [#/Vol]6.96 10*3/uLOhioHealthECG 12-LEADon 04-06-2019 Shell Hawkins MD 04/06/2019 12:08 PM EKG 12-lead Date/Time: 04/06/2019 11:35 AM Performed by: Shell Hawkins MD Authorized by: Shell Hawkins MD Interpreted by ED attending physician Rhythm: sinus rhythm BPM: 80 Conduction: complete RBBB ST Segments: ST segments normal T Waves: T waves normal Other: no other findingsOhioHealthOtheron 85-26-0113Jisgk TubeHold for add-ons.[facility] Comment on above:Auto resulted.HIP RIGHT 1 OR 2 VWS WITH PELVISon 71-72-3122GGH RIGHT 1 OR 2 VWS WITH PELVISUnCleveland Clinic [facility] of Radiology [address] [place] [id number] Patient Name: QING FISCHER : 1945 Sex: F Age: Race: White Pt. Location: 84 Patient Status: Ordered Date: 11/01/2018 1:55:00 PM Completed Date: 11/01/2018 01:58 PM Requesting Provider: LAURIE TOWNSEND Attending Provider: Report Copy To: Signs & Symptoms: S72.141D Displ intertroch fx r femur, subs for clos fx w routn heal I10 History: Ivy Comments: , , , Ordering Provider - LAURIE TOWNSEND PA-C , Exam: HIP RIGHT 1 OR 2 VWS WITH PELVIS HIP RIGHT 1 OR 2 VWS WITH [...] skeleton Electronically signed by:Wolfgang Ibarra. Transcribed by: [email or web address], User Resident: Electronically Signed by: WOLFGANG IBARRA @ 11/01/2018 02:05 [facility] HospitalComment on above:Order Comment: No: Do not add to previous drawHIP RIGHT 1 OR 2 VWS WITH PELVISon 46-95-1738JDF RIGHT 1 OR 2 VWS WITH PELVISUnCleveland Clinic [facility] of Radiology [address] [place] [address] Patient Name: QING FISCHER : 1945 Sex: F Age: Race: White Pt. Location: 84 Patient Status: Ordered Date: 10/01/2018 2:20:00 PM Completed Date: 10/01/2018 02:27 PM Requesting Provider: LAURIE TOWNSEND Attending Provider: Report Copy To: Signs & Symptoms: S72.141D Displ intertroch fx r femur, subs for clos fx w routn heal I10 History: Creede Comments: , , , Ordering Provider - LAURIE TOWNSEND PA-C , Exam: HIP RIGHT 1 OR 2 VWS WITH PELVIS HIP RIGHT 1 OR 2 VWS WITH PELVIS 10/01/2018 2:27 PM EST SIGNS AND SYMPTOMS: S72.141D Displ intertroch fx r femur, subs for clos fx w routn heal I10 TECHNOLOGIST COMMENTS: Ortho follow up for surgery to right hip. QUESTION FOR THE RADIOLOGIST: , , , Ordering Provider - LAURIE TOWNSEND PA-C , PROTOCOL: AP(PA) and Lateral views were obtained. COMPARISON: 2017 FINDINGS: Soft tissues: No acute findings Bones: Osteoporosis with dynamic hip screw fixation of healing intertrochanteric fracture Joints: Minor bilateral hip arthritis and moderate degenerative disc disease Scoliotic deformity with rightward lumbar area Right iliac wing irregularity, possibly postsurgical IMPRESSION: Dynamic hip screw fixation of healing right intertrochanteric fracture Electronically signed by:Wolfgang Ibarra. Transcribed by: [email or web address], User Resident: Electronically Signed by: WOLFGANG IBARRA @ 10/01/2018 04:11 [facility] HospitalComment on above:Order Comment: No: Do not add to previous drawHIP RIGHT 1 OR 2 VWS WITH PELVISon [id number] RIGHT 1 OR 2 VWS WITH PELVISUnCleveland Clinic [facility] Department of Radiology [address] [place] [id number] Patient Name: QING FISCHER : 1945 Sex: F Age: Race: White Pt. Location: 84 Patient Status: Ordered Date: 08/24/2018 1:05:00 PM Completed Date: 08/24/2018 01:02 PM Requesting Provider: LAURIE TOWNSEND Attending Provider: Report Copy To: Signs & Symptoms: S72.141D Displ intertroch fx r femur, subs for clos fx w routn heal I10 History: Creede Comments: , , , Ordering Provider - LAURIE TOWNSEND PA-C , Exam: HIP RIGHT 1 OR 2 VWS WITH PELVIS HIP RIGHT 1 OR 2 VWS WITH [...] spine Electronically signed by:Wolfgang Ibarra. Transcribed by: [email or web address], User Resident: Electronically Signed by: WOLFGANG IBARRA @ 08/24/2018 02:16 [facility] HospitalComment on above:Order Comment: No: Do not add to previous drawHIP RIGHT 1 OR 2 VWS WITH PELVISon 13-32-9872KIA RIGHT 1 OR 2 VWS WITH PELVISUnCleveland Clinic [facility] of Radiology [address] [place] [id number] Patient Name: QING FISCHER : 1945 Sex: F Age: Race: White Pt. Location: Patient Status: Ordered Date: 07/26/2018 9:40:00 AM Completed Date: 07/26/2018 09:43 AM Requesting Provider: LAURIE TOWNSEND Attending Provider: Report Copy To: Signs & Symptoms: S72.141D Displ intertroch fx r femur, subs for clos fx w routn heal I10 History: Ivy Comments: , Views (X-RAY, HIP): Radiologic Protocol , Weight Bearing?: N , With or Without Brace/Cast/Collar: With , Views (X-RAY, HIP): Radiologic Protocol , Weight Bearing?: N , With or Without Brace/Cast/Collar: With , , , Ordering Provider - LAURIE TOWNSEND PA-C , Exam: HIP RIGHT 1 OR 2 VWS WITH PELVIS HIP RIGHT 1 OR 2 VWS WITH [...] alignment Electronically signed by:Wolfgang Ibarra. Transcribed by: [email or web address], User Resident: Electronically Signed by: WOLFGANG IBARRA @ 07/26/2018 01:34 PMNormalThe [facility] HospitalComment on above:Order Comment: No: Do not add to previous drawBASIC METABOLIC PANELon 43-12-3322Xnycnpn mass conc8.3 mg/dLLow 8.6-10.3The [facility] HospitalComment on above:Order Comment: No: Do not add to previous drawPerformed By: #### [id number] #### [facility] [address] [place] [address], USAChloride molar nxvj801 mmol/AHlykts67-599Qqd [facility] HospitalComment on above:Order Comment: No: Do not add to previous drawPerformed By: #### [id number] #### [facility] [address] [place] [address], USACO2 molar conc26 mmol/OTdgwvd08-35Erf [facility] HospitalComment on above:Order Comment: No: Do not add to previous draw Performed By: #### [id number] #### [facility] [address] [place] [address], USACreatinine mass conc0.56 mg/dLLow0.60-1.20The [facility] HospitalComment on above:Order Comment: No: Do not add to previous drawPerformed By: #### [id number] #### [facility] [address] [place] [address], USAGFR/1.73 sq M predicted among blacks MDRD vol rate/area (S/P/Bld)mL/min/{1.73_m2}Normal>60The [facility] HospitalComment on above:Order Comment: No: Do not add to previous drawResult Comment: Calculation may not be valid for patients over 70 yearsPerformed By: #### [id number] #### [facility] [address] [place] [address], USAGFR/1.73 sq M predicted among non-blacks MDRD vol rate/area (S/P/Bld)mL/min/{1.73_m2}Normal>60The [facility] Comment on above:Order Comment: No: Do not add to previous drawResult Comment: Calculation may not be valid for patients over 70 yearsPerformed By: #### [id number] #### [facility] [address] [place] [address], USAGlucose mass hlml147 mg/yJLvzl08-311Tpq [facility] HospitalComment on above:Order Comment: No: Do not add to previous drawPerformed By: #### [id number] #### [facility] [address] [place] [address], USAPotassium molar conc4.0 mmol/LNormal3.5-5.1The [facility] HospitalComment on above:Order Comment: No: Do not add to previous drawPerformed By: #### [id number] #### [facility] [address] [place] [address], USASodium molar jamz795 mmol/CKqdzkd403-027Xrj [facility] HospitalComment on above:Order Comment: No: Do not add to previous drawPerformed By: #### [id number] #### [facility] [address] [place] [address], USAUrea nitrogen mass conc9 mg/dLNormal7-25The [facility] HospitalComment on above:Order Comment: No: Do not add to previous drawPerformed By: #### [id number] #### [facility] [address] [place] [address], USACBC COMPLETE BLOOD COUNTon 89-17-5001Wviitgbbbxi distribution width Ratio (RBC)13.8 %Gzttib09.5-15.0The [facility] HospitalComment on above:Order Comment: No: Do not add to previous draw Performed By: #### [id number] #### [facility] [address] [place] [address], [facility]ATION HOSPITALHematocrit Volume Fraction (Bld)30.5 %Low36.0-45.0The [facility] HospitalComment on above:Order Comment: No: Do not add to previous drawPerformed By: #### [id number] #### [facility] [address] [place] [address], USAHemoglobin mass conc (Bld)10.1 g/dLLow12.0-15.0The [facility] HospitalComment on above:Order Comment: No: Do not add to previous drawPerformed By: #### [id number] #### [facility] [address] [place] [address], USAMCH Entitic mass (RBC)29.9 xkIsyfju20.0-33.0The [facility] HospitalComment on above:Order Comment: No: Do not add to previous drawPerformed By: #### [id number] #### [facility] [address] [place] [address], [facility] – NORMANHC mass conc (RBC)33.1 g/qHYympfu91.0-35.0The [facility] HospitalComment on above:Order Comment: No: Do not add to previous drawPerformed By: #### [id number] #### [facility] [address] [place] [address], [facility] – NORMANV Entitic volume (RBC)90.2 oPRuvanr73.0-98.0The [facility] HospitalComment on above:Order Comment: No: Do not add to previous drawPerformed By: #### [id number] #### [facility] [address] [facility] [place] [address], [facility]ATION HOSPITALNucleated RBC/100 WBC Ratio (Bld)0 %Normal0-0The [facility] HospitalComment on above:Order Comment: No: Do not add to previous drawPerformed By: #### [id number] #### [facility] [address] [facility] [address], [facility]HABILITATION HOSPITALPLAT SLT819 10*3/cKExhyww219-906Hjv [facility] HospitalComment on above:Order Comment: No: Do not add to previous draw Performed By: #### [id number] #### [facility] [address] [place] [address], [facility]HABIL[facility]ATION HOSPITALRBC #/vol (Bld)3.38 10*6/uLLow3.80-5.00The [facility] HospitalComment on above:Order Comment: No: Do not add to previous drawPerformed By: #### [id number] #### [facility] [address] [place] [id number], L[facility] REHABILITATION HOSPITALWBC #/vol (Bld)8.43 10*3/uLNormal4.00-10.60The [facility] HospitalComment on above:Order Comment: No: Do not add to previous drawPerformed By: #### [id number] #### [facility] [address] [place] [address], [facility] HOSPITALOperative Reporton [id number] ReportMR#: [id number] I [facility] Pt. Name: Qing Fischer Room #: [id number] Discharge Date: Birthdate: 1945 OPERATIVE REPORT DATE [...] Nunez M.D. Date Trans: 07/13/2018 11:30 P/richard DN_JN:[id number] cc: Nona Mcknight M.D. [address] [facility] [phone] Bellevue HospitalBASIC METABOLIC PANELon 82-04-3924Zfjuudr mass conc9.2 mg/dLNormal8.6-10.3The [facility] HospitalComment on above:Order Comment: No: Do not add to previous drawPerformed By: #### [id number] #### [facility] [address] [place] [address], USAChloride molar ldev856 mmol/ZRfuwhp97-433Zir [facility] HospitalComment on above:Order Comment: No: Do not add to previous drawPerformed By: #### [id number] #### [facility] [address] [place] [address], [place]ACO2 molar conc28 mmol/TLahzyq03-35Tcj [facility] HospitalComment on above:Order Comment: No: Do not add to previous draw Performed By: #### [id number] #### [facility] [address] [place] [address], USACreatinine mass conc0.66 mg/dLNormal0.60-1.20The [facility] HospitalComment on above:Order Comment: No: Do not add to previous drawPerformed By: #### [id number] #### [facility] [address] [place] [address], USAGFR/1.73 sq M predicted among blacks MDRD vol rate/area (S/P/Bld)mL/min/{1.73_m2}Normal>60The [facility] HospitalComment on above:Order Comment: No: Do not add to previous drawResult Comment: Calculation may not be valid for patients over 70 yearsPerformed By: #### 11415 #### [facility] [address] [place] [address], USAGFR/1.73 sq M predicted among non-blacks MDRD vol rate/area (S/P/Bld)mL/min/{1.73_m2}Normal>60The [facility] Comment on above:Order Comment: No: Do not add to previous drawResult Comment: Calculation may not be valid for patients over 70 yearsPerformed By: #### [id number] #### [facility] [address] [place] [address], USAGlucose mass yvoe392 mg/vVTjql52-692Uex [facility] HospitalComment on above:Order Comment: No: Do not add to previous drawPerformed By: #### [id number] #### [facility] [address] [place] [address], USAPotassium molar conc4.1 mmol/LNormal3.5-5.1The [facility] HospitalComment on above:Order Comment: No: Do not add to previous drawPerformed By: #### [id number] #### [facility] [address] [place] [address], USASodium molar uzvv003 mmol/YJjvoku411-595Lit [facility] HospitalComment on above:Order Comment: No: Do not add to previous drawPerformed By: #### [id number] #### [facility] [address] [place] [address], USAUrea nitrogen mass conc16 mg/dLNormal7-25The [facility] HospitalComment on above:Order Comment: No: Do not add to previous drawPerformed By: #### [id number] #### [facility] [address] [place] [place] [address], USACBC COMPLETE BLOOD COUNTon 08-48-6791Wkkcwmzhhcu distribution width Ratio (RBC)13.9 %Zknqae37.5-15.0The [facility]tering Arms HospitalComment on above:Order Comment: No: Do not add to previous draw Performed By: #### [id number] #### [facility] [address] [place] [address], [facility] HOSPITALHematocrit Volume Fraction (Bld)41.6 %Rfsycn98.0-45.0The [facility] HospitalComment on above:Order Comment: No: Do not add to previous drawPerformed By: #### [id number] #### [facility] [address] [place] [address], [facility] HOSPITALHemoglobin mass conc (Bld)13.3 g/cGPaxvgj80.0-15.0The [facility] HospitalComment on above:Order Comment: No: Do not add to previous drawPerformed By: #### [id number] #### [facility] [address] [place] [address], [facility]ATION HOSPITALMCH Entitic mass (RBC)29.0 gcGstfsa31.0-33.0The [facility] HospitalComment on above:Order Comment: No: Do not add to previous drawPerformed By: #### [id number] #### [facility] [address] [place] [address], [facility] NORMANHC mass conc (RBC)32.0 g/fTWvkksr41.0-35.0The [facility] HospitalComment on above:Order Comment: No: Do not add to previous drawPerformed By: #### [id number] #### [facility] [address] [place] [address], [facility] NORMANV Entitic volume (RBC)90.8 jOLhjikv25.0-98.0The [facility] HospitalComment on above:Order Comment: No: Do not add to previous drawPerformed By: #### [id number] #### [facility] [address] [place] [address], [facility] HOSPITALNucleated RBC/100 WBC Ratio (Bld)0 %Normal0-0The [facility] HospitalComment on above:Order Comment: No: Do not add to previous drawPerformed By: #### [id number] #### [facility] [address]. [place] [id number], [facility]IL[facility]ATION HOSPITALPLAT XFO020 10*3/dEOfntms842-536Ofk [facility] HospitalComment on above:Order Comment: No: Do not add to previous draw Performed By: #### [id number] #### [facility] [address] [place] [address], [facility]IL[facility]ATION HOSPITALRBC #/vol (Bld)4.58 10*6/uLNormal3.80-5.00The [facility] HospitalComment on above:Order Comment: No: Do not add to previous drawPerformed By: #### [id number] #### [facility] [address] [place] [id number], [facility]ILITATION HOSPITALWBC #/vol (Bld)9.00 10*3/uLNormal4.00-10.60The [facility] HospitalComment on above:Order Comment: No: Do not add to previous drawPerformed By: #### [id number] #### [address] [place] [address], USACT LOWER EXTREMITY WO CONTRAST RIGHTon 09-07-9604GA LOWER EXTREMITY WO CONTRAST RIGHTUnCleveland Clinic [facility] Department of Radiology [address] [place] [id number] Patient Name: QING FISCHER : 1945 Sex: F Age: Race: White Pt. Location: [id number] Patient Status: I Ordered Date: 07/13/2018 7:15:00 AM Completed Date: 07/13/2018 09:59 AM Requesting Provider: OSWALDO MARQUEZ Attending Provider: ABIODUN BAHENA Report Copy To: Signs & Symptoms: Fracture History: Patient history not available Comments: R/O Fractures, R hip for basicervical fx Exam: CT LOWER EXTREMITY WO CONTRAST RIGHT CT LOWER EXTREMITY WO CONTRAST RIGHT 07/13/2018 [...] definitive. Electronically signed by:Wolfgang Ibarra. Transcribed by: [email or web address], User Resident: Electronically Signed by: WOLFGANG IBARRA @ 07/13/2018 10:26 AMNFirelands Regional Medical CenterComment on above:Order Comment: R/O Fractures, R hip for basicervical fxHIP RIGHT 1 OR 2 VWS WITH PELVISon 56-89-7475KBF RIGHT 1 OR 2 VWS WITH PELVISUnCleveland Clinic [facility] Department of Radiology [address] [place] [id number] Patient Name: QING FISCHER : 1945 Sex: F Age: Race: White Pt. Location: [id number] Patient Status: I Ordered Date: 07/13/2018 12:55:00 PM Completed Date: 07/13/2018 06:56 PM Requesting Provider: ABIODUN BAHENA Attending Provider: ABIODUN BAHENA Report Copy To: Signs & Symptoms: Right hip VHS with History: Right hip VHS with Comments: Right hip VHS with Exam: HIP RIGHT 1 OR 2 VWS WITH PELVIS HIP RIGHT 1 OR 2 VWS WITH [...] findings. Electronically signed by:Anjel Fitzgerald. Transcribed by: [email or web address], User Resident: ZACARIAS LECHUGA Electronically Signed by: ANJEL FITZGERALD @ 07/14/2018 08:57 PM I personally read this/these film(s) with this residentGalion HospitalComment on above:Order Comment: Right hip VHS with POBenny GLUCOSE LABon 25-74-7780Supxovt mass czgo809 mg/gIXxmb07-366Vku [facility] HospitalComment on above:Performed By: #### [id number] #### [address] [place] [address], [facility] HOSPITALPROTHROMBIN TIMEon 31-38-4319JUJ Coag RelTime (PPP)1.03 {INR}Normal0.91-1.16The [facility] Arms HospitalComment on above: Order Comment: No: Do not add to previous drawResult Comment: ACCCP RECOMMENDED INR FOR WARFARIN THERAPY ------- CONDITION INR PROPHYLAXIS OF VENOUS THROMBOSIS 2-3 (HIGH-RISK SURGERY) TREATMENT OF VENOUS THROMBOSIS 2-3 TREATMENT OF PULMONARY EMBOLISM 2-3 PREVENTION OF SYSTEMIC EMBOLISM: 2-3 ACUTE MYOCARDIAL INFARCTION TISSUE HEART VALVES VALVULAR HEART DISEASE ATRIAL FIBRILLATION RECURRENT SYSTEMIC EMBOLISM MECHANICAL HEART VALVE 2.5-3.5 FROM: ORAL ANTICOAGULANTS. MECHANISM OF ACTION, CLINICAL EFFECTIVENESS, AND OPTIMAL THERAPEUTIC RANGE. CHEST 1995;108:231S-246S.Performed By: #### [id number] #### [facility] [address] [place] [address], [facility] HOSPITALProthrombin time (PT) Coag time (PPP)13.5 aPqqdid65.3-14.8 The [facility] Arms HospitalComment on above:Order Comment: No: Do not add to previous drawResult Comment: ALL RESULTS MUST BE INTERPRETED WITH RESPECT TO BLOOD DRAWING ARTIFACT OR DILUTION ERROR OF ANTICOAGULANT AT THE TIME OF SAMPLING.Performed By: #### [id number] #### [facility] [address] [place] [address], USARBC'S 2 UNITSon 94-97-4573GMMUXBIRBH INTERP 1CNationwide Children's HospitalComment on above:Order Comment: Other Performed By: #### [id number] #### [facility] [address] [place] [address], USACROSSMATCH INTERP 2CNationwide Children's HospitalComment on above:Order Comment: OtherPerformed By: #### [id number] #### [facility] [address] [place] [address], [facility] HOSPITALProtein mass iafs413 g/dLNoThe Bellevue HospitalComment on above:Order Comment: OtherPerformed By: #### [id number] #### [facility] [address] [place] [address], USAProtein mass concRENoThe Bellevue HospitalComment on above:Order Comment: OtherResult Comment: Result changed by IF on 07/16/2018 23:15. The previous value was XM.Performed By: #### [id number] #### [facility] [address] [place] [address], USAUNIT ABO 1[facility] Comment on above:Order Comment: OtherPerformed By: #### [id number] #### [facility] [address] [place] [address], USAUNIT ABO 2[facility] Comment on above:Order Comment: OtherPerformed By: #### [id number] #### [facility] [address] [place] [address], USAUNIT ID [id number] Regional Medical CenterComment on above:Order Comment: OtherPerformed By: #### [id number] #### [facility] [address] [place] [address], USAUNIT ID [id number]. Vincent HospitalComment on above:Order Comment: OtherPerformed By: #### [id number] #### [facility] [address] [place] [address], USAUNIT RH 1PositiveGalion HospitalComment on above:Order Comment: OtherPerformed By: #### [id number] #### [facility] [address] [place] [address], USAUNIT RH 2PositiveNormUC West Chester HospitalComment on above:Order Comment: OtherPerformed By: #### [id number] #### [facility] [address] [place] [address], USATYPE AND SCREENon 06-99-9141YBJ INTERPRETATIONChildren's Hospital of ColumbusComment on above:Performed By: #### [id number] #### [facility] [address] [place] [address], USARH INTERPRETATIONOhio Valley HospitalComment on above:Performed By: #### [id number] #### [facility] [place] [address], [facility] Vital Signs Date TimeVital SignValuePerforming JgdbowjksUcvhtaad82-79-2573 14:39-0400Body .4 cmJacob José Antonio PA-C Work Phone: [facility]04-18-2024 14:39-0400Body ivjmbs04.78 kgJacob José Antonio PA-C Work Phone: [facility]10-24-2023 11:37-0400Body dfbunl787.4 cmTony Combs MD Work Phone: cRiverview Health InstituteIlbsxf95-34-4600 11:37-0400Body cgbjhe36.14 Martin Combs MD Work Phone: cRiverview Health InstituteBjphzp62-88-9526 12:11-0400Body Temperature 98.1 [degF][facility] HospitalNjyiXkriAdemzo54-58-6710 12:11-0400BP Rrzjqtrun24 mm[Hg][facility] HospitalIwhoTribZctdwm14-24-3688 12:11-0400BP Bhzyxwzc612 mm[Hg][facility] 04-06-2019 12:11-0400Pulse (Heart Rate)68 /[facility] OhioZfqaBpxqHqlsup35-73-6680 12:11-0400Pulse Dtwqfqbg00 %[facility]'s HospitalBozqDwypLpjnvo34-30-5361 11:52-0400Respiratory Rate18 /[facility] OhioSmojTfbfDasnhx32-27-6227 10:43-0400Body svqqid33.86 kgDavid [facility] Encounters Encounter DateEncounter TypeCare ProviderFacilityStart: 06-04-2025 End: 01-73-2111yiigoyvtexPehnqsuTracie ElDetwiler Memorial Hospital Work Phone: Start: 06-04-2025 End: 54-53-9381Ttniojrk ReferredNona Sutton MD-LAB [facility] Start: 07-23-2024 End: 68-56-9778aekkiztypnXbbwysu R NILLFacility:[facility] Rehabilitationtart: 07-23-2024 End: 30-80-1403Zsibpwg encounter procedureMichael R NILL [phone]-Uuthk General Surgery Sandra Start: 28-54-5080onjaokazdzNlyleo OrzechFacility:[facility] for RehabilitationueStart: 04-25-2024 End: 84-38-6936pwyshnkldnKPKOIRT M HOYFacility:[facility] Hospitaltart: 04-25-2024 End: 90-94-7088Yqdtnmm encounter procedureWolfgang Chou PA-C Work Phone: OrthopaedicsComment on above:S/P reverse total shoulder arthroplasty, left (Primary Dx)Start: 04-25-2024 End: 54-06-8247Ofioqystxb hospital visit by physicianXr [facility] Work Phone: RadiologyComment on above:S/P reverse total shoulder arthroplasty, left [Z96.612]Start: 01-11-2024 End: 21-14-0744ygdxrcndnkNGPRPNO M HOYFacility:[facility] Hospitaltart: 01-11-2024 End: 48-39-3773Ntoihbg encounter procedureWolfgang Chou PA-C Work Phone: OrthopaedicsComment on above:S/P reverse total shoulder arthroplasty, left (Primary Dx)Start: 84-53-7693bngcxsfvoaGUBSENP M HOY Facility:[facility] Hospitaltart: 01-11-2024 End: 45-21-9734Gmzbrelmie hospital visit by physicianXr Main X22AscsuolxkWktcroi on above:S/P reverse total shoulder arthroplasty, left [Z96.612]Start: 12-26-2023 End: 84-14-5637maqicmhucsJxpsy Hallgren OTR/L Work Phone: [place] [facility] TherapyComment on above:Decreased range of motion of left shoulder (Primary Dx); S/P reverse total shoulder arthroplasty, left; Nontraumatic complete tear of rotator cuff, left; Rotator cuff tear arthropathy of left shoulderStart: 12-19-2023 End: 44-86-1235zhqrtnwmscZtgdl Hallgren OTR/L Work Phone: [facility] HospitalRiverMeadow Software Occupational TherapyComment on above:Decreased range of motion of left shoulder (Primary Dx); S/P reverse total shoulder arthroplasty, left; Nontraumatic complete tear of rotator cuff, left; Rotator cuff tear arthropathy of left shoulderStart: 12-12-2023 End: 30-22-8398imsdvebjdcWligo Hallgren OTR/L Work Phone: [facility] HospitalRiverMeadow Software Occupational TherapyComment on above:Decreased range of motion of left shoulder (Primary Dx); S/P reverse total shoulder arthroplasty, left; Nontraumatic complete tear of rotator cuff, left; Rotator cuff tear arthropathy of left shoulderStart: 12-05-2023 End: 22-01-1013mfchsxwkinCmfxp Hallgren OTR/L Work Phone: [facility] HospitalRiverMeadow Software Occupational TherapyComment on above:Decreased range of motion of left shoulder (Primary Dx); S/P reverse total shoulder arthroplasty, left; Nontraumatic complete tear of rotator cuff, left; Rotator cuff tear arthropathy of left shoulderStart: 11-28-2023 End: 24-09-6998uvfflrmdajFYDPGVZ M HOYFacility:[facility] Hospitaltart: 11-21-2023 End: 38-63-0549aniugehwfcTscun Jaygren OTR/L Work Phone: [facility] HospitalRiverMeadow Software Occupational TherapyComment on above:Decreased range of motion of left shoulder (Primary Dx); S/P reverse total shoulder arthroplasty, left; Nontraumatic complete tear of rotator cuff, left; Rotator cuff tear arthropathy of left shoulderStart: 11-14-2023 End: 10-14-2199ltunhezpzsNeuxh Hallgren OTR/L Work Phone: LorRiverM[facility] Software Occupational TherapyComment on above:Decreased range of motion of left shoulder (Primary Dx); S/P reverse total shoulder arthroplasty, left; Nontraumatic complete tear of rotator cuff, left; Rotator cuff tear arthropathy of left shoulderStart: 11-09-2023 End: 47-35-5461Dodtffo encounter procedureWolfgang Chou PA-C Work Phone: OrthopaedicsComment on above:S/P reverse total shoulder arthroplasty, left (Primary Dx); Nontraumatic complete tear of rotator cuff, left; Closed displaced fracture of acromial process, unspecified laterality, sequela Start: 11-09-2023 End: 87-53-6799idvysyylqpNPEENKW M HOYFacility:[facility] Hospitaltart: 11-09-2023 End: 14-44-9568Uilmhcwwak hospital visit by physicianXr [facility] Work Phone: RadiologyComment on above:S/P reverse total shoulder arthroplasty, left [Z96.612]Start: 11-06-2023 End: 61-47-5875iwchwvejydYbiny Hallgren OTR/L Work Phone: [place] [facility] TherapyComment on above:Decreased range of motion of left shoulder (Primary Dx); S/P reverse total shoulder arthroplasty, left; Nontraumatic complete tear of rotator cuff, left; Rotator cuff tear arthropathy of left shoulderStart: 10-30-2023 End: 46-50-8822nonmqtwankXTRPWIA H SEVIKIFacility:[facility] Centertart: 10-26-2023 End: 07-05-6372rbywnywbhhMKEKUFR H SEVIKIFacility:[facility] Hospitaltart: 10-24-2023 End: 25-31-8018zvuruqjotcFOLNU P EHLERSFacility:[facility] Centertart: 10-16-2023 End: 72-88-1184ztyqnnavycEQDNR EHLERSFacility:[facility] Hospitaltart: 10-12-2023 End: 65-28-4555vgswynikeaCSFSX EHLERSFacility:[facility] Hospitaltart: 10-02-2023 End: 26-36-6254zrijgpvwugEMGYSUG M HOYFacility:[facility] Hospitaltart: 09-29-2023 End: 02-27-7970dilvxtpqufBQWXS P EHLERSFacility:[facility] Centertart: 09-27-2023 End: 14-22-7000ppjotsxhkyPviduc X OrzechFacility:[facility] HospitalyStart: 09-26-2023 ambulatoryAurora OrzechFacility:EU SanduskyStart: 09-15-2023 End: 76-45-5448zkactarzklLRLSBLB H SEITZFacility:[facility] Centertart: 89-13-9479Wqcfbn Terri Combs MD Work Phone: OrthopaedicsComment on above:Closed displaced fracture of acromial process, unspecified laterality, sequela (Primary Dx); Status post reverse arthroplasty of left shoulderStart: 09-11-2023 End: 51-10-7466awxivbhiqqPHNRETM H SEITZFacility:[facility] Centertart: 66-43-2485Nuyzvhplk for other preprocedural examinationDOUGLAS HOGrand Lake Joint Township District Memorial HospitalStart: 09-07-2023 End: 99-45-2413xtlqsshmrnIPIJV LUNUNITY MEDICAL CENTERFacility:[facility] Hospitaltart: 08-29-2023 End: 06-41-8856ibiuqbwpqnHFSQJUT H SEITZFacility:[facility] Centertart: 08-29-2023 End: 60-93-2086Icoeqjn encounter procedureTony Combs MD Work Phone: OrthopaedicsComment on above:Rotator cuff tear arthropathy of left shoulder (Primary Dx); Closed displaced fracture of acromial process, unspecified laterality, sequela; Nontraumatic complete tear of rotator cuff, left; Injury of tendon of long head of biceps, left, initial encounter; Contracture of shoulder, leftStart: 24-93-3566crohiwfsihKFRUDEI H SEITZ Facility:[facility] Centertart: 07-18-2023 End: 20-76-1821powxznbtyqMZULTMR H SEITZFacility:[facility] Centertart: 07-18-2023 End: 45-35-8665Mkklmjs encounter procedureTony Combs MD Work Phone: OrthopaedicsComment on above:Rotator cuff tear arthropathy of left shoulder (Primary Dx); Chronic right shoulder pain; Nontraumatic complete tear of rotator cuff, left; Injury of tendon of long head of biceps, left, initial encounter; Closed displaced fracture of acromial process, unspecified laterality, sequela Start: 07-18-2023 End: 64-90-3620Pphsgocaqz hospital visit by physicianGeneral Radio [facility] RadiologyComment on above:Chronic right shoulder pain [M25.511, G89.29]Start: 02-08-2023 End: 43-56-6433ruhejqdvpfMP DOUGLAS HOY .Facility:R7Uxjkt: 02-07-2023 End: 03-04-4714wvbendvdbmHZ DOUGLAS HOY .Facility:P9Jbemn: 10-25-2022 End: 77-80-3403usdpfnphmwYR PAUL SILCOXFacility:H7Fusfv: 10-18-2022 End: 63-98-4856ootayilrziAI DOCTOR MISCFacility:M1Svysv: 03-03-2022 End: 81-17-0635qzznonedrtAK DOUGLAS HOY .Facility:N3Djbnz: 10-20-2020 End: 75-74-4931KraydrReinaldo Gross Work Phone: [facility] Start: 04-06-2019 End: 51-69-2332Dwncfvthq department patient visitDAVID [facility] Hospitaltart: 04-06-2019 End: 87-85-4169Bzievyeus department patient visitDaviSpecial Care Hospital Work Phone: [facility] Emergency DepartmentComment on above:Acute non-recurrent frontal sinusitis (Primary Dx)Start: 11-01-2018 End: 10-54-8530Tyctcer encounter procedureGREGORY OTTOFacility:UTMCStart: 10-01-2018 End: 34-44-6997Huzgwfg encounter procedureGREGORY OTTOFacility:UTMCStart: 08-24-2018 End: 89-96-1686Vizrvwx encounter procedureGREGORY OTTOFacility:UTMCStart: 07-26-2018 End: 15-77-5127Fuigbhp encounter procedureGREGORY OTTOFacility:UTMCStart: 07-13-2018 End: 52-59-7610Tacryqljfj and management of inpatientDOUGLAS HOYFacility:[facility] Procedures DateProcedureProcedure DetailPerforming ClinicianStart: 29-07-1884Fmist shoulder complete minimum 2 viewsJacob José Antonio PA-C Work Phone: Start: 37-35-2629Lazuw shoulder complete minimum 2 viewsJacob José Antonio PA-C Work Phone: Start: 83-68-1500Dlvzy shoulder complete minimum 2 viewsJacob José Antonio PA-C Work Phone: Start: 30-98-6937Lnvfihnp screenDOUGLAS HOYComment on above:Order Comment: Specimen Type: BLOOD SPECIMEN Ordering Facility: [facility] Address: [address] [place], [place] [address]Performed By: #### [id number] #### CC MAIN BLOOD BANK [facility] [id number] [address] [place] [address] [place] AMERICAStart: 54-29-673797 lead ECG Shell Estlow Hawkins Work Phone: Start: 77-24-9651Kirqo metabolic 2000 panel - Serum or PlasmaDavid Estlow Hawkins Work Phone: Start: 42-89-5137Muxcbypy blood count with white cell differential, automatedDavid Estlow Hawkins Work Phone: Start: 89-03-2611Hbhrlkct blood count with white cell differential, manualDavid Estlow Hawkins Work Phone: Start: 70-66-3956VQGXF BLUE TOPDavid Estlow Hawkins Work Phone: Start: 74-10-8688XTEHD GREEN TOPDavid Estlow Hawkins Work Phone: Start: 13-58-9096XZTJKDR DRAWDavid Estlow Hawkins Work Phone: Start: 80-94-2639Grukcfjt screenGREGORY OTTOComment on above:Performed By: #### [id number] #### [facility] [address] [place] [address], USAStart: 72-53-2609PXBBFZQKM OF INT FIX INTO R UP FEMUR, OPEN APPROACHNABIL EBRAHEIMStart: 83-27-9868DbqlqcmqzdpUhxtfrq NILL Arthroplasty of kneeMichael NILL Closed fracture of hip (disorder)Lonny NILL Elbow fracture - closed (disorder)Lonny NILL HysterectomyMichael NILL Partial shoulder replacementMichael NILL Plan of Treatment DateCare ActivityDetailAuthorStart: 74-84-3340Hyjvebkn ScreeningDiabetes ScreeningOur Lady of Mercy Hospital - Andersontart: 63-32-4600Yfchk cultureWhite Hospitaltart: 64-51-1583SzsbjdiyeWhite Hospitaltart: 61-40-0160Pfssxtig identified in Urine by CultureUrine [facility] Hospitaltart: 30-02-0353Sfxymbev ScreeningDiabetes ScreeningOur Lady of Mercy Hospital - Andersontart: 10-31-2024 End: 18-18-5036Vjsymco encounter mxbyzsozm66/06/2025 1:40 PM EST Office Visit Orthopaedics [address] [place] [address] Wolfgang Chou PA-C [address] [place] [address] 6 Month Follow Up - left shoulder painOrthopaedicsComment on above:6 Month Follow Up - left shoulder painStart: 69-80-4437Ecxxpalpe vaccinationInfluenza Vaccine (#1)[facility] Andersontart: 05-78-9613Zjqsv-19 Vaccine ( season)Covid- 19 Vaccine ()[facility] Andersontart: 58-98-1642Kxgimve Directive DiscussionAdvance Directive DiscussionOur Lady of Mercy Hospital - Andersontart: 83-41-1467Zvefajewbj Health ScreeningBehavioral Health ScreeningOhiohealth O'[facility] Hospital Start: 20-00-0328Osmfdpjmdw AssessmentDepression AssessmentOhiohealth O'Bleness Hospital Start: 46-95-6387Orueitf Directive DiscussionAdvance Directive Discussion [facility] Andersontart: 21-20-6321Wrhxntdfdm AssessmentDepression Assessment [facility] Andersontart: 30-40-0144Atjmgrcg ScreeningDiabetes ScreeningOur Lady of Mercy Hospital - Andersontart: 62-30-7164Zcwd Density ScreeningBone Density ScreeningOur Lady of Mercy Hospital - Andersontart: 35-52-7607Zcwmtflwa for osteoporosisBone Density ScreeningOur Lady of Mercy Hospital - Andersontart: 21-44-5980PSX Vaccine (1 - 1-dose 60+ series)RSV Vaccine (1 - 1- dose 60+ series)[facility] Andersontart: 37-33-9746Xgizdmrm Vaccine (1 of 2) Shingrix Vaccine (1 of 2)[facility] Andersontart: 67-40-3472Efden microalbumin profileDTaP,Tdap,Td Vaccine (1 - Tdap)[facility] Andersontart: 27-46-1438Drcnoz PCP Team Chronic Disease VisitAnnual PCP Team Chronic Disease VisitOur Lady of Mercy Hospital - Andersontart: 76-62-3063Bqppbfy ScreeningAnxiety ScreeningOur Lady of Mercy Hospital - Andersontart: 43-07-3163Yagdydlwwq ScreeningDepression ScreeningOhiohealth O'Bleness Hospital End: 04-94-7555UV 3D POST PROCESSINGCT 3D POST PROCESSING Radiology Routine Rotator cuff tear arthropathy of left shoulder 1 Occurrences [facility] 07/18/2023 until [facility] Work Phone: comment on above:1 Occurrences starting 07/18/2023 until 08/16/2024T SHOULDER WO IVCON LEFTCT SHOULDER WO IVCON LEFT Radiology Routine Rotator cuff tear arthropathy of left shoulder Ordered:07/18/2023 [facility] Work Phone: comment on above:Ordered: 07/18/2023XR SHOULDER GENERAL 3V OR MORE AP/TRUE AP/OTHER RIGHTXR SHOULDER GENERAL 3V OR MORE AP/TRUE AP/OTHER RIGHT Radiology Routine Chronic right shoulder pain07/18/2023 12:37 PM EDTCWayne [facility] Work Phone: [facility] Immunizations Immunization DateImmunizationNotesCare UdsednaeKverrwqw53-93-5343cweiveuua virus vaccine, unspecified formulationXr [employer] Work Phone: [facility] HospitalFjebll51-79-8742KAPQ-HbU-8 (COVID-19) mRNAMUL.ORD!r97568Zbkfpmr NILL [phone]-EqzsuUniversity Hospitals Lake [facility] Center Zcmwwitp24-39-9305 SARS-CoV-2 (COVID-19) mRNA BNT-162b2 vaxMichael NILL [phone]-OmxxeUniversity Hospitals Lake West Medical Center BellevueComment on above: Result Comment: 2024-07-05: [id number] (COVID-19) mRNA BNT-162b2 vaxMichael NILL [phone]-DolkfUniversity Hospitals Lake West Medical Center BellevueComment on above: Result Comment: 2024-07-05: [id number] (COVID-19) mRNA BNT-162b2 vaxMichael NILL [phone]-MtpllUniversity Hospitals Lake West Medical Center BellevueComment on above: Result Comment: 2024-07-05: [id number] Payers DatePayer CategoryPayerPolicy [id number] 2018MedicareANTHEM MANAGED MEDICARE ANTHEM MEDIBLUE ESSENTIAL/PLUS/CONNECT/SNP O [id number] 2017-[id number] MedicareANTHEM MANAGED MEDICARE ANTHEM MEDIBLUE ESSENTIAL/PLUS/CONNECT/SNP O xxxxxxxxxxxx 2017-Presentxxxxxxxxxxxx [id number] [id number] 2.16.840.1.355843.3.57[id number] 2.16.840.1.392831.3.57[id number] 2.16.840.1.471943.3.57[id number] 2.16.840.1.964157.3.57[id number] 2.16.840.1.228209.3.57[id number] 2.16.840.1.778198.3.57[id number] 2.16.840.1.331447.3.57[id number] 2.16.840.1.508776.3.57[id number] 2.16.840.1.274893.3.57[id number] 2.16.840.1.199368.3.57[id number] 2.16.840.1.477078.3.57[id number] 2.16.840.1.218717.3.57[id number] 2.16.840.1.57[id number] 2.16.840.1.084743.3.579.2.531 Social History DateTypeDetailFacilityTobacco smoking status NHISUnknown if ever smoked CaliforniaHealthStart: 35-53-4177Lka Assigned At BirthNot on fileOhioHealthStart: 73-25-4932Mqexakw smoking status NHISNever smoked tobaccoOur Lady of Mercy Hospital - Andersontart: 03-16-2015 End: 90-08-2178Gyconqb intakeCurrent drinker of alcohol (finding)[facility] Andersontart: 57-03-7896Vaxjifl of Social functionOur Lady of Mercy Hospital - Andersontart: 17-11-1315Wsmn Deprivation IndexPremier Health Miami Valley HospitalNational Score (1- 100), lower number is lower llxy80Ughkkxmfa [facility] SanduskyStart: 51-80-9303Pylolha Comment1-2 glasses of wine with dinner most nightsOur Lady of Mercy Hospital - Andersontart: 93-92-9753Osgckix smoking status NHISTobacco smoking consumption unknownOhiohealth O'Bleness Hospital Work Phone: SexFemale (finding)[facility] Start: 99-19-2189Blo Assigned At BirthFeOhio Valley Hospital Medical Equipment Procedure CodeEquipment CodeEquipment Original TextEquipment IdentifierDates Cement Simplex P Tobramycin Bone Full Dose Radiopaque Preblend Sterile - [id number]: 90-15-9830Fylvngrekb Metal Reverse Plus Shoulder Head 36mm [id number]: 74-47-7207Ofqay 36mm 12d 65d Trabecular Metal Polyethylene H+6mm Shoulder Reverse - [id number]: 09-11-2023 Screw Ncb 4.5mm Protasul-64wf 30mm Bone Inverse Reverse Lock Sterile - [id number]: 15-79-6412Hqzq Liz 1.6mm Stainless Steel 5.5in Fixation Trocar Smooth Guide - [id number]: 29-89-8650Hgbuxr Simplex P Tobramycin Bone Full Dose Radiopaque Preblend Sterile - [id number]: 68-38-6930Bbnnuikket Metal Reverse Plus Base Plate 15mm [id number]_impStart: 38-93-8226Svxn 12mm Trabecular Metal Tivanium 130mm Humeral Reverse Sterile Shoulder - [id number]: 62-13-7547Sheag Ncb Anatomical Shoulder 4.5mm Protasul-64wf 33mm Bone Inverse Reverse - [id number]_impStart: 88-24-8124Isfc Liz 1.6mm Stainless Steel 5.5in Fixation Trocar Smooth Guide - [id number]: 09-11-2023 Clinical Notes 07-18-2023 to 04-25-2024 Note Date & SuvwHcnaPexlduiy21-05-8867 History of Present illness Narrative* Wolfgang Chou PA-C - 04/25/2024 2:19 PM EDT Patient Name: QING Sutton [facility] No: [id number] Date of Service: April 25, 2024 [facility] Established patient returns for interval follow-up status post Left shoulder reverse total ShoulderArthroplasty, extensive capsular release, biceps tenodesis, open reduction [...] Father Hypertension Sister Coronary Artery Disease Sister [place] in 30s Anesthesia Problems No Family History [...] months or as needed for new or worseningsymptoms. This note was partially generated using SkiApps.com voice recognition system and as such may contain grammatical or word errors Wolfgang Chou PA-C April 25, 2024 documented in this encounterOhiohealth O'Bleness Hospital06-06-2024 NoteHNO ID: [id number] Author: RMOINA DARNELL OTR/L Service: ? Author Type: Occupational [...] scheduled additional follow-up appointments. Romina Darnell, OTR/L #[id number] Clinic Mercy Hospital04-18-2024 NoteHNO ID: [id number] Author: WOLFGANG CHOU PA-C Service: ? Author Type: Physician Case Sealer Type: Progress Notes Filed: 01/11/2024 15:50 Note Text: Patient Name: QING Sutton [facility] No: [id number] Date of Service: January 11, 2024 [facility] Patient returns for follow [...] sooner. This note was partially generated using SkiApps.com voice recognition system and as such may contain grammatical or word errors Wolfgang Chou PA-C [facility] 10[facility] History of Present illness Narrative* Wolfgang Chou PA-C - 01/11/2024 3:42 PM EDT Patient Name: QING FISCHER [facility] No: [id number] Date of Service: January 11, 2024 [facility] Patient returns for follow [...] sooner. This note was partially generated using SkiApps.com voice recognition system and as such may contain grammatical or word errors Wolfgang Chou PA-C January 11, 2024 documented in this encounterOhiohealth O'Bleness Hospital04-18-2024 History of Present illness Narrative* Tammy Levy Tech - 01/11/2024 12:30 PM EDT Radiology Service Progress Note PATIENT NAME: Qing Fischer DATE OF SERVICE: January 11, 2024 TIME: 2:28 PM PATIENT IDENTITY VERIFICATION COMPLETED USING TWO (2) IDENTIFIERS: Name and Date of confirmedby patient verbally. FALL SCREENING: Has the patient had 2 falls in the last year or 1 fall with injury or currently using an Ambulatory Assistive Device (Walker, Cane, Wheelchair, Crutches, etc.)? Yes, Patient High Riskfor Falls What interventions were put in place to prevent falls during this visit? Yellow Falls Risk Wristband Applied PATIENT GENDER DATA: Female. status: : No status: NO. PATIENT RELEVANT IMPLANT DATA REVIEWED: Not Applicable PATIENT PRESENTS WITH AN IMPLANTABLE OR ATTACHED UNDERCOVER AGENT: No RADIOLOGY DEPARTMENT: General X-ray: Exam(s) Completed: Upper Extremity X- Ray(s): Shoulder, AP / TRUE AP left / PA Y-View PERIPHERAL IV DATA: Not applicable SIGNED BY: Aston Rodrigues January 11, 2024 2:28 PM documented in this encounterOhiohealth O'Bleness Hospital04-18-2024 NoteHNO ID: [id number] Author: TAMMY LEVY Tech Service: ? Author Type: Fax Machine Operator Type: Progress Notes Filed: 01/11/2024 14:29 [...] PATIENT PRESENTS WITH AN IMPLANTABLE OR ATTACHED UNDERCOVER AGENT: No RADIOLOGY DEPARTMENT: General X-ray: Exam(s) Completed: Upper Extremity X-Ray(s): Shoulder, AP / TRUE AP left / PA Y-View PERIPHERAL IV DATA: Not applicable SIGNED BY: Aston Rodrigues January 11, 2024 2:28 [facility]04-02-2024 NoteHNO ID: [id number] Author: ROMINA DARNELL OTR/Cristopher Service: ? Author [...] Planned: 2 Planned Treatment Interventions: Therapeutic exercise (05304), Manual therapy (12966), Self-longterm management (34038), Patient/Family/Caregiver Education PLAN FOR NEXT VISIT: pt [...] AROM L Shoulder Exte (more content not included)...[facility] 12-26-2023 History of Present illness Narrative* Romina Darnell OTR/L - 12/26/2023 3:51 PM EDT Episode Visit Count: 11 in 2023; 1 [...] R shoulder/neck pain, but has been able touse L UE to completed cleaning tasks, dressing, [...] own with her home program, but may returnto OT for additional stretching and strengthening if [...] demonstrate independence with ongoing home recommendations/exercise program throughouttherapy plan of care.-met, but ongoing as program [...] Planned: 2 Planned Treatment Interventions: Therapeutic exercise (09781), Manual therapy (43964), Self-longterm management (93747), Patient/Family/Caregiver Education PLAN FOR NEXT VISIT: pt [...] : 1454 Session Stop Time : 1540 ELSY Olsen/Cristopher #[id number] documented in this encounterOhiohealth O'Bleness Hospital03-26-2024 NoteHNO ID: [id number] Author: ROMINA DARNELL OTR/L Service: ? Author [...] Session Stop Time : 1537 RAHUL Olsen #[id number] Clinic Mercy Hospital03-26-2024 History of Present illness Narrative* Romina Darnell OTR/L - 12/19/2023 6:07 PM EDT Episode Visit Count: 7 Therapist That Will Accept/Oversee The Plan Of Care: RAHUL Zarate Start of Care Date: 09/15/23 Onset Date: 09/11/23 Plan of Care Certification Date: 09/15/23 Next Certification Due Date: 12/14/23 Patient Identified by Name and Date of : Yes REHABILITATION AND SPORTS THERAPY OCCUPATIONAL THERAPY TREATMENT NOTE ASSESSMENT: Qing Sutton Aaliyha tolerated the session with no issues. She demonstrated difficulty with home LUE stretching at times due to pain in R shoulder/neck. She does benefit from heat and manual techniques to reduce. She shows progress in motion in L shoulder and is receptive to use of therabandto further progress. The patient will continue to benefit from ongoing skilled occupational therapyto progress toward set goals. PLAN FOR NEXT [...] Session Stop Time : 1537 RAHUL Olsen #[id number] documented in this encounterOhiohealth O'Bleness Hospital03-19-2024 NoteHNO ID: [id number] Author: ROMINA DARNELL OTR/L Service: ? Author [...] Session Stop Time : 1541 Romina DarnellOLIVIAR/L #[id number] Clinic Mercy Hospital03-19-2024 History of Present illness Narrative* Jayjossy RominaELSY neal/Cristopher - 12/12/2023 6:16 PM EDT Episode Visit Count: 9 (1 session in 2022) Therapist That Will Accept/Oversee The Plan Of Care: RAHUL Zarate Start of Care Date: 09/15/23 Onset Date: 09/11/23 Plan of Care Certification Date: 09/15/23 Next Certification Due Date: 12/14/23 Patient Identified by Name and Date of : Yes REHABILITATION AND SPORTS THERAPY OCCUPATIONAL THERAPY TREATMENT NOTE ASSESSMENT: Qing Sutton Aaliyah tolerated the session with decreased symptoms. She [...] Session Stop Time : 1541 RAHUL Olsen #[id number] documented in this encounterOhiohealth O'Bleness Hospital03-12-2024 NoteHNO ID: [id number] Author: ROMINA DARNELL OTR/L Service: ? Author [...] Session Stop Time : 1531 RAHUL Olsen #[id number] Clinic Mercy Hospital03-12-2024 History of Present illness Narrative* Romina Darnell OTR/L - 12/05/2023 4:37 PM EDT Episode Visit Count: 6 Therapist That Will [...] be aware of her posture to prevent compensationwith mobility exercises. Pt working on exercises at home which she does not have to use the R UE toassist LUElizabet. The patient will continue to benefit from [...] Session Stop Time : 1531 RAHUL Olsen #[id number] documented in this encounterOhiohealth O'Bleness Hospital03-05-2024 NoteHNO ID: [id number] Author: ROMINA DARNELL OTR/L Service: ? Author [...] Session Stop Time : 1448 RAHUL Olsen #[id number] Clinic Mercy Hospital02-27-2024 NoteHNO ID: [id number] Author: ROMINA DARNELL OTR/L Service: ? Author [...] Planned: 4 Planned Treatment Interventions: Therapeutic exercise (03391), Manual therapy (99176), Self-longterm management (96401), Patient/Family/Caregiver Education PLAN FOR NEXT VISIT: continue [...] since prior session while (more content not included)...[facility]02-27-2024 History of Present illness Narrative* Romina Darnell OTR/L - 11/21/2023 6:29 PM EST Episode Visit Count: 6 (1 session in [...] demonstrate independence with ongoing home recommendations/exercise program throughouttherapy plan of care.-met, but ongoing as program [...] Planned: 4 Planned Treatment Interventions: Therapeutic exercise (47181), Manual therapy (56469), Self-longterm management (54327), Patient/Family/Caregiver Education PLAN FOR NEXT VISIT: continue [...] Session Stop Time : 1532 RAHUL Olsen #[id number] documented in this encounterOhiohealth O'Bleness Hospital02-20-2024 NoteHNO ID: [id number] Author: ROMINA DARNELL OTR/L Service: ? Author [...] Time (minutes): 44 Session Start Time : 8 Session Stop Time : 1542 Romina Darnell, OTR/L #[id number] Clinic Mercy Hospital02-20-2024 History of Present illness Narrative* Romina Darnell, OTR/L - 11/14/2023 4:28 PM EST Episode Visit Count: 5 in 2023, 1 [...] Stop Time : 1542 Romina Darnell OTR/Cristopher #[id number] documented in this encounterOhiohealth O'Bleness Hospital02-15-2024 NoteHNO ID: [id number] Author: WOLFGANG CHOU PA-C Service: ? Author Type: Physician Case Sealer Type: Progress Notes Filed: 11/27/2023 13:57 Note Text: Patient Name: QING Sutton [facility] No: [id number] Date of Service: November 09, 2023 [facility] Postoperative patient presents for suture removal [...] symptoms. This note was partially generated using SkiApps.com voice recognition system and as such may contain grammatical or word errors Wolfgang Chou PA-C [facility] 09[facility] History of Present illness Narrative* Wolfgang Chou PA-C - 11/09/2023 10:20 AM EST Patient Name: QING Sutton [facility] No: [id number] Date of Service: November 09, 2023 [facility] Postoperative patient presents for suture removal [...] symptoms. This note was partially generated using SkiApps.com voice recognition system and as such may contain grammatical or word errors Wolfgang Chou PA-C November 09, 2023 documented in this encounterOhiohealth O'Bleness Hospital02-15-2024 History of Present illness Narrative* Marleen Cadet RT(R) - 11/09/2023 10:00 AM EST Radiology Service Progress Note PATIENT NAME: Qing Fischer DATE OF SERVICE: November 09, 2023 TIME: 10:22 AM PATIENT IDENTITY VERIFICATION COMPLETED USING TWO (2) IDENTIFIERS: Name and Date of confirmedby patient verbally. FALL SCREENING: Has the patient had 2 falls in the last year or 1 fall with injury or currently using an Ambulatory Assistive Device (Walker, Cane, Wheelchair, Crutches, etc.)? No PATIENT GENDER DATA: Female. status: : No status: NO. PATIENT RELEVANT IMPLANT DATA REVIEWED: Not Applicable PATIENT PRESENTS WITH AN IMPLANTABLE OR ATTACHED UNDERCOVER AGENT: No RADIOLOGY DEPARTMENT: General X-ray: Exam(s) Completed: Upper Extremity X- Ray(s): Shoulder, AP / TRUE AP / SUPRA OUTLET left PERIPHERAL IV DATA: Not applicable SIGNED BY: LIZETH Pearson) November 09, 2023 10:22 AM documented in this encounterOhiohealth O'Bleness Hospital02-15-2024 NoteHNO ID: [id number] Author: MARLEEN CADET RT(R) Service: ? Author [...] PATIENT PRESENTS WITH AN IMPLANTABLE OR ATTACHED UNDERCOVER AGENT: No RADIOLOGY DEPARTMENT: General X-ray: Exam(s) Completed: Upper Extremity X-Ray(s): Shoulder, AP / TRUE AP / SUPRA OUTLET left PERIPHERAL IV DATA: Not applicable SIGNED BY: RT Lili(R) November 09, 2023 10:22 [facility]02-12-2024 NoteHNO ID: [id number] Author: ROMINA DARNELL OTR/Cristopher Service: ? Author [...] Session Stop Time : 1456 RAHUL Olsen #[id number] Clinic Mercy Hospital02-12-2024 History of Present illness Narrative* Romina Darnell OTR/L - 11/06/2023 5:26 PM EST Episode Visit Count: 4 Therapist That Will [...] hands clasped for shoulder flexion; educated in useof her cane as well for flex, abduction [...] Stop Time : 1456 Romina Darnell OTR/L #[id number] documented in this encounterOhiohealth O'Bleness Hospital02-01-2024 NoteHNO ID: [id number] Author: TONY COMBS MD Service: ? Author Type: Physician Type: Progress Notes Filed: 10/31/2023 13:19 Note Text: Patient Name: QING FISCHER [facility] No: [id number] Date of Service: October 24, 2023 [facility] Patient returns for follow up approximately [...] patient was offered a [facility]procedure [facility] a [facility]. The surgeon/proceduralist and patient have [...] indicated on the consent form. MD Brook Mark, [facility]01-30-2024 NoteHNO ID: [id number] Author: WOLFGANG CHOU PA-C Service: ? Author Type: Physician Case Sealer Type: Progress Notes Filed: 10/26/2023 09:09 Note Text: Patient Name: QING FISCHER [facility] No: [id number] Date of Service: October 24, 2023 [facility] Patient returns for follow up approximately 6 weeks status post Left shoulder reverse total Shoulder Arthroplasty, extensive capsular release, biceps tenodesis, open reduction internal fixation of acromion fracture 09/11/[address] Combs. She continues to be pleased with her progress utilizing phase 1 protocols with occupational therapy. Pain is reported as minimal rated 0/10. 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 This note was partially generated using Splurgy recognition system and as such may contain grammatical or word errors Wolfgang Chou PA-C October 24, 2023[facility] CenterQsbnncns72-81-3450 NoteHNO ID: [id number] Author: ROMINA DARNELL, OTR/L Service: ? Author Type: Occupational Therapist [...] Planned: 4 Planned Treatment Interventions: Therapeutic exercise (09554), Manual therapy (84446), Self-longterm management (88386), Patient/Family/Caregiver Education PLAN FOR NEXT VISIT: continue [...] indicates half of resp (more content not included)...[facility]01-18-2024 NoteHNO ID: [id number] Author: ROMINA DARNELL OTR/Cristopher Service: ? Author [...] Session Stop Time : 1452 RAHUL Olsen #[id number] Clinic Mercy Hospital01-08-2024 NoteHNO ID: [id number] Author: ROMINA DARNELL OTR/L Service: ? Author [...] Stop Time : 1231 Romina Darnell, OTR/L #[id number] Clinic Mercy Hospital01-05-2024 NoteHNO ID: [id number] Author: WOLFGANG CHOU PA-C Service: ? Author Type: Physician Case Sealer Type: Progress Notes Filed: 10/23/2023 23:33 Note Text: Patient Name: QING FISCHER [facility] No: [id number] Date of Service: September 29, 2023 [facility] Patient returns for follow up [...] sooner. This note was partially generated using SkiApps.com voice recognition system and as such may contain grammatical or word errors Wolfgang Chou PA-C September 29, 2023[facility] CenterKdonvfbn97-12-3798 NoteHNO ID: [id number] Author: Miladis Robertson OTR/L Service: ? Author [...] No active shoulder motion; sling on time buyer with the exception for prescribed OT exercises [...] Injury: Other: See comments (wear and tear) [facility] REHABILITATION AND SPORTS THERAPY OCCUPATIONAL THERAPY EVALUATION [...] Planned: 16 Planned Treatment Interventions: Therapeutic exercise (64408), Manual therapy (14198), Self-longterm management (50980), Patient/Family/Caregiver Education (heat pack) PLAN FOR NEXT [...] Intake Information: Prescription pre (more content not included)...[facility] CenterUrtxngsu71-87-5108 NoteHNO ID: [id number] Author: Juan Pope MD Service: Orthopaedic Surgery [...] Pope MD, PGY-2 Orthopaedic Surgery Personal cell/pager: [phone] Between 5PM to 7AM, on weekends or if urgent, please page the orthopaedic on-call resident at: [phone] ([phone]) for [facility] patients [address] for [facility] patients [address] for [facility] patients [address] for [facility] patients [address] for [facility] patientsOhio State University Wexner Medical CenterUheipmsr71-80-3481 NoteHNO ID: [id number] Author: Floyd Ramos AA Service: ? Author Type: Draw Bench Operator Helper Type: Anesthesia Procedure Notes Filed: 09/11/2023 1:11 [...] September 11, 2023 TIME: 1:11 PM CSN: [id number] [id number] NoteHNO ID: [id number] Author: Sil Sanchez MD Service: Anesthesiology Author [...] September 11, 2023 TIME: 11:22 AM CSN: [id number] [id number] NoteHNO ID: [id number] Author: Tony Combs MD Service: ? Author Type: Physician Type: Progress Notes Filed: 08/30/2023 2:03 PM Note Text: [facility] NOTE DEPARTMENT OF ORTHOPAEDICS Evaluation with Tony Combs Jr., M.D. Patient Name: QING FISCHER [facility] No: [id number] : 1945 Qing Fischer is a pleasant [...] patient was offered a surgery/procedure at [facility]. The surgeon/proceduralist and patient have [...] Combs MD Recorded by: Luis Barney MD ([facility]12-05-2023 History of Present illness Narrative* Tony Combs MD - 08/29/2023 1:16 PM EST [facility] NOTE DEPARTMENT OF ORTHOPAEDICS Evaluation with Tony Combs Jr., M.D. Patient Name: QING FISCHER Clinic No: [id number] : 1945 Qing Fischer is a pleasant and active 78 year old female who presents for follow up of her left shoulder rotator cuff arthropathy. She was last seen on 07/18/2023, with a tentative plan to proceedwith a left reverse total shoulder arthroplasty. A CT was obtained for preoperative planning and tobetter delineate her bony anatomy. Today, she endorses [...] obtained 08/01/2023 and personally reviewed. Imaging demonstrates severeleft rotator cuff arthropathy with superior subluxation of the humeral head. There is fragmentationof the left acromion. Qing Fischer is a pleasant and active 78 year old female who presents for follow up of her left shoulder rotator cuff arthropathy. We again had a lengthy discussion regarding the patient's presentation and symptomatology. We showed the patient and her family her xrays today. We discussed optionsfor operative and nonoperative management. Operative management would consist of left reverse totalshoulder arthroplasty, biceps tenodesis vs tenolysis, and open [...] November 2023, and she may proceed with surgerywith him versus one of his colleagues. The patient would like to proceed with Dr. Combs. Surgery will include Reverse TSA, contracture release, biceps tenodesis, possible bone graft of glenoid, possible tendon transfer all involving the left shoulder. This will be performed under combined general 7regional anaesthesia on an inpatiient basis A copy of this note will be sent to the patient's PCP Dr. Mcknight. Ms. Qing Fischer was seen in office today for orthopaedic evaluation. I personally have gone over the patient's updated electronic medical record and imaging studies. I've taken an updated historyand performed a current physical examination. My findings [...] patient was offered a surgery/procedure at a [facility] facility. The surgeon/proceduralist and patient have discussed in detail the risk of exposure to and/or potential harm posed by the COVID-19 virus with having a surgery/procedure at this time versus the risk of delaying the surgery/pr ocedure. It is not possible to know either the risk of delaying the surgery or procedure or chance of getting an infection with perfect accuracy, but a joint decision was made between the patient andthe surgeon/proceduralist to proceed at this time with the scheduled surgery/procedure as indicatedon the consent form. Tony Combs MD Recorded by: Luis Barney MD (scribe) documented in this encounterOhiohealth O'Bleness Hospital11-07-2023 NoteHNO ID: [id number] Author: Sina Coronado RT(R) Service: Radiology Author [...] Sina Coronado RT(R) August 01, 2023 12:37 [facility]10-24-2023 NoteHNO ID: [id number] Author: Tony Combs MD Service: ? Author Type: Physician Type: Progress Notes Filed: 07/22/2023 10:43 AM Note Text: [facility] NOTE DEPARTMENT OF ORTHOPAEDICS Evaluation with Tony Combs Jr., M.D. Patient Name: QING Sutton [facility] No: [id number] : 1945 This is an active 78 [...] Artery Disease Father Coronary Artery Disease Sister [place] in 30s PAST SURGICAL HISTORY Procedure Laterality [...] is been obtained. Recorded by: Barrington Freitas [facility]10-24-2023 NoteHNO ID: [id number] Author: Jennifer Hernandez RT(Angel) Service: Radiology Author [...] BY: RT Shemar(R) July 18, 2023 12:38 [facility]10-24-2023 NoteHNO ID: [id number] Author: Diana Ayala RT(Angel) Service: Radiology Author Type: Fax Machine Operator Type: Progress Notes Filed: 07/18/2023 12:03 [...] BY: RT Kayla(R) July 18, 2023 12:02 [facility]10-24-2023 History of Present illness Narrative* Tony Combs MD - 07/18/2023 11:59 AM EDT [facility] NOTE DEPARTMENT OF ORTHOPAEDICS Evaluation with Tony Combs Jr., M.D. Patient Name: QING FISCHER [facility] No: [id number] : 1945 This is an active 78 [...] Artery Disease Father Coronary Artery Disease Sister MO in 30s PAST SURGICAL HISTORY Procedure Laterality Date ASPIRATION BREAST CYST 1992 x2, many years ago EGD 2006 OTHER ACCESSORY cervical cryotherapy , nml pap since then EXAM: Is alert and oriented and demonstrates good balance and gait. She does not demonstrate any signs ofcentral nervous system dysfunction or cervical radiculopathy or [...] by: Barrington Freitas DO documented in [facility] encounter[facility] History of Present illness Narrative* Diana Ayala RT(R) - 07/18/2023 11:00 AM EDT Radiology Service Progress Note PATIENT NAME: Qing Fischer DATE OF SERVICE: July 18, 2023 TIME: 12:02 PM PATIENT IDENTITY VERIFICATION COMPLETED USING TWO (2) IDENTIFIERS: Name and Date of confirmedby patient verbally and Name and Date of [...] DEPARTMENT: General X-ray: Exam(s) Completed: Upper Extremity X- Ray(s): Shoulder, AP / TRUE AP / AXILLARY left PERIPHERAL IV DATA: Not applicable SIGNED BY: RT Kayla(Angel) July 18, 2023 12:02 PM * Jennifer Hernandez RT(R) - 07/18/2023 11:00 AM EDT Radiology Service Progress Note PATIENT NAME: Qing Fischer DATE OF SERVICE: July 18, 2023 TIME: 12:38 PM PATIENT IDENTITY VERIFICATION COMPLETED USING TWO (2) IDENTIFIERS: Name and Date of confirmedby patient verbally and Name and Date of [...] DEPARTMENT: General X-ray: Exam(s) Completed: Upper Extremity X- Ray(s): Shoulder, AP / TRUE AP / AXILLARY / SUPRA OUTLET right PERIPHERAL IV DATA: Not applicable SIGNED BY: RT Shemar(R) July 18, 2023 12:38 PM [facility] No data available for this section [facility] [place] Evaluation note* Diagnosis Pain Generalized pain Chronic right shoulder pain Pain in joint, shoulder region documented in this encounter [facility]* Diagnosis Rotator cuff tear arthropathy of left shoulder- Primary Chronic right shoulder pain Pain in joint, shoulder region Nontraumatic complete tear of rotator cuff, left Injury of tendon of long head of biceps, left, initial encounter Closed displaced fracture of acromial process, unspecified laterality, sequela documented in this encounter [facility]* Diagnosis Rotator cuff tear arthropathy of left shoulder- Primary Closed displaced fracture of acromial process, unspecified laterality, sequela Nontraumatic complete tear of rotator cuff, left Injury of tendon of long head of biceps, left, initial encounter Contracture of shoulder, left documented in this encounter [facility] note* Diagnosis Closed displaced fracture of acromial process, unspecified laterality, sequela- Primary Status post reverse arthroplasty of left shoulder documented in this encounter [facility] note* Diagnosis Decreased range of motion of left shoulder- Primary S/P reverse total shoulder arthroplasty, 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, 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 documented in this encounter [facility] note* Diagnosis S/P reverse total shoulder arthroplasty, left documented in this encounter [facility]* Diagnosis Decreased range of motion of left shoulder- Primary S/P reverse total shoulder arthroplasty, 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, 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 documented in this encounter [facility] note* Diagnosis Decreased range of motion of left shoulder- Primary S/P reverse total shoulder arthroplasty, 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, 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 [facility] Diagnosis S/P reverse total shoulder arthroplasty, left- Primary Nontraumatic complete tear of rotator cuff, left Closed displaced fracture of acromial process, unspecified laterality, sequela [facility]* Diagnosis Decreased range of motion of left shoulder- Primary S/P reverse total shoulder arthroplasty, 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, 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 [facility]* Diagnosis S/P reverse total shoulder arthroplasty, left- Primary [facility]* Diagnosis S/P reverse total shoulder arthroplasty, left documented [facility]* Diagnosis S/P reverse total shoulder arthroplasty, left documented in this encounter [facility] note* Diagnosis Pre-op evaluation- Primary Preoperative examination, unspecified Hypothyroidism, unspecified type OAB (overactive bladder) Hypertonicity of bladder Gastroesophageal reflux disease without esophagitis Esophageal reflux S/P reverse total shoulder arthroplasty, left- Primary S/P reverse total shoulder arthroplasty, left [facility] noteNo assessment information availableC[facility] Work Phone: Hospital Discharge instructions No data available for this section [facility] [place] Progress note No data available for this section [facility] Reason for referral (narrative)* Diagnostic Procedure Only (Routine) - ClosedSpecialtyDiagnoses / ProceduresReferred By Contact Referred To ContactXR IMAGING Diagnoses Chronic right shoulder pain Procedures XR SHOULDER GENERAL 3V OR MORE AP/TRUE AP/OTHER RIGHT RADEX SHOULDER COMPLETE MINIMUM 2 [place] [address] [facility] [address] [address] [place] [address] Referral IDStatusReasonStart DateExpiration DateVisits RequestedVisits [id number] Auto-Generated Referral / * Consult, Test, Treat (Routine) - Pending ReviewSpecialtyDiagnoses / Procedures Referred By ContactReferred To Contact Diagnoses Rotator cuff tear arthropathy of left shoulder Procedures REFER TO PACC - PRE ANESTHESIA CONSULTATION CLINIC OFFICE/OUTPATIENT [facility] 60-[place] [address] [place] [address] Referral IDStatusReasonStart DateExpiration DateVisits RequestedVisits [id number] Review PCP Requested Referral / * MRI/CT (Routine) - AuthorizedSpecialtyDiagnoses / ProceduresReferred By ContactReferred To ContactCT IMAGING Diagnoses Rotator cuff tear arthropathy of left shoulder Procedures CT SHOULDER WO IVCON LEFT CT UPPER EXTREMITY W/[place] [address] [place] [address] [place] [facility] [place] [facility] Referral IDStatusReasonStart DateExpiration DateVisits RequestedVisits [id number] Auto-Generated Referral / [facility] for referral (narrative)* Diagnostic Procedure Only (Routine) - ClosedSpecialtyDiagnoses / ProceduresReferred By ContactReferred To ContactXR IMAGING Diagnoses S/P reverse total shoulder arthroplasty, left Procedures XR SHOULDER GENERAL 3V OR MORE AP/TRUE AP/OTHER LEFT RADEX SHOULDER COMPLETE MINIMUM 2 VIEWS Wolfgang Chou PA-C [address] [place] [address] [place] [address] Referral IDStatusReasonStart DateExpiration DateVisits RequestedVisits [id number] Auto-Generated Referral / [facility] for referral (narrative)* - Pending ReviewSpecialty Diagnoses / ProceduresReferred By ContactReferred To Contact Diagnoses S/P reverse total shoulder arthroplasty, 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, left Closed displaced fracture of acromial process, unspecified laterality, sequela Procedures CONSULT TO MACHINE STEMMER Wolfgang Chou PA-C [address] [place] [address] Referral IDStatusReasonStart DateExpiration DateVisits RequestedVisits [id number] Review/ * Diagnostic Procedure Only (Routine) - ClosedSpecialtyDiagnoses / Procedures Referred By ContactReferred To ContactXR IMAGING Diagnoses S/P reverse total shoulder arthroplasty, left Procedures XR SHOULDER GENERAL 3V OR MORE AP/TRUE AP/OTHER LEFT RADEX SHOULDER COMPLETE MINIMUM 2 VIEWS Wolfgang Chou PA-C [address] [place] [id number] [place] [address] Referral IDStatusReasonStdillsboro DateExpiration DateVisits RequestedVisits [id number] Auto-Generated Referral / [facility] for referral (narrative)* Diagnostic Procedure Only (Routine) - ClosedSpecialtyDiagnoses / ProceduresReferred By ContactReferred To ContactXR IMAGING Diagnoses S/P reverse total shoulder arthroplasty, left Procedures XR SHOULDER GENERAL 3V OR MORE AP/TRUE AP/OTHER LEFT RADEX SHOULDER COMPLETE MINIMUM 2 VIEWS Wolfgang Chou PA-C [address] [place] [id number] [place] [address] Referral IDStatusReasonStart DateExpiration DateVisits RequestedVisits [id number] Auto-Generated Referral / [facility] for referral (narrative)* Diagnostic Procedure Only (Routine) - ClosedSpecialtyDiagnoses / ProceduresReferred By ContactReferred To ContactXR IMAGING Diagnoses S/P reverse total shoulder arthroplasty, left Procedures XR SHOULDER GENERAL 3V OR MORE AP/TRUE AP/OTHER LEFT RADEX SHOULDER COMPLETE MINIMUM 2 VIEWS Wolfgang Chou PA-C [address] [place] [id number] [place] [address] Referral IDStatusReasonStart DateExpiration DateVisits RequestedVisits [id number] Auto-Generated Referral [facility] for referral (narrative)* Diagnostic Procedure Only (Routine) - ClosedSpecialtyDiagnoses / ProceduresReferred By ContactReferred To ContactXR IMAGING Diagnoses S/P reverse total shoulder arthroplasty, left Procedures XR SHOULDER GENERAL 3V OR MORE AP/TRUE AP/OTHER LEFT RADEX SHOULDER COMPLETE MINIMUM 2 VIEWS Wolfgang Chou PA-C [address] [place] [id number] [place] [address] Referral IDStatusReasonStart DateExpiration DateVisits RequestedVisits [id number] Auto-Generated Referral / [facility] for referral (narrative)* Diagnostic Procedure Only (Routine) - ClosedSpecialtyDiagnoses / ProceduresReferred By ContactReferred To ContactXR IMAGING Diagnoses S/P reverse total shoulder arthroplasty, left Procedures XR SHOULDER GENERAL 3V OR MORE AP/TRUE AP/OTHER LEFT RADEX SHOULDER COMPLETE MINIMUM 2 VIEWS Wolfgang Chou PA-C [address] [place] [id number] [place] [address] Referral IDStatusReasonStart DateExpiration DateVisits RequestedVisits [id number] Auto-Generated Referral / [facility] for referral (narrative)No reason for referral information availableSelect Medical Special[facility] Work Phone: [facility] for visit Narrative* Diagnostic Procedure Only (Routine) - ClosedSpecialtyDiagnoses / ProceduresReferred By ContactReferred To ContactXR IMAGING Diagnoses Pain Procedures XR SHOULDER GENERAL 3V OR MORE AP/TRUE AP/OTHER LEFT RADEX SHOULDER COMPLETE MINIMUM 2 VIEWS Leeann Mcgee MD [address] [place] [address] X[facility] [place] [address] Referral IDStatusReasonStdillsboro DateExpiration DateVisits RequestedVisits [id number] Auto-Generated Referral / [facility] for visit Narrative* Diagnostic Procedure Only (Routine) - ClosedSpecialtyDiagnoses / ProceduresReferred By ContactReferred To Contact XR IMAGING Diagnoses S/P reverse total shoulder arthroplasty, left Procedures XR SHOULDER GENERAL 3V OR MORE AP/TRUE AP/OTHER LEFT RADEX SHOULDER COMPLETE MINIMUM 2 VIEWS Wolfgang Chou PA-C [address] [place] [address] Xr Imaging [place] [address] Referral IDStatusReasonStdillsboro DateExpiration DateVisits RequestedVisits [id number] Auto-Generated Referral / [facility] for visit Narrative* Diagnostic Procedure Only (Routine) - ClosedSpecialtyDiagnoses / ProceduresReferred By ContactReferred To Contact XR IMAGING Diagnoses S/P reverse total shoulder arthroplasty, left Procedures XR SHOULDER GENERAL 3V OR MORE AP/TRUE AP/OTHER LEFT RADEX SHOULDER COMPLETE MINIMUM 2 VIEWS Wolfgang Chou PA-C [address] [place] [address] Xr Imaging [facility] Referral IDStatusReasonStart DateExpiration DateVisits RequestedVisits [id number] Auto-Generated Referral [facility] Summary Purpose Family History No Family History Records FoundNo Family History Records FoundNo Family History Records FoundNo Family History Records FoundNo Family History Records FoundNo Family History Records Found No data available for this section No Family History Records FoundNo Family History Records Found Advance Directives No Advanced Directives Records FoundDocuments on File TypeDate RecordedPatient RepresentativeExplanationAdvance Directives and Living Will04/06/2019 11:27 AMCode StatusDate ActivatedDate InactivatedCommentsFull Code 09/11/2023 6:23 PM09/12/2023 5:24 PMQuestionAnswerCommentsFull Code Order Discussed With:PatientCode StatusDate ActivatedDate InactivatedCommentsFull Code 09/11/2023 6:23 PM09/12/2023 5:24 PMQuestionAnswerCommentsFull Code Order Discussed With:PatientDate ActivatedDate LlsyavkpmvfZmeafhtt10/18/2023 6:23 PM 09/12/2023 5:24 PMQuestionAnswerCommentsFull Code Order Discussed With:* Patient Date ActivatedDate ZxlbohxwxdkXfayeans91/18/2023 6:23 PM09/12/2023 5:24 PM QuestionAnswerCommentsFull Code Order Discussed With:* Patient Advance Directive Response Recorded Date/ Time Advance Directives No April 15 1:49pm Hospital Course Note MR#: [id number] [facility] Pt. Name: Qing Fischer Admitted: [...] be sent through Care Everywhere. * Sinusitis (Indonesian) documented in this encounter Assessments Diagnosis Acute non-recurrent frontal sinusitis- Primary Reason for Referral SpecialtyDiagnoses / ProceduresReferred By ContactReferred To Contact Diagnoses Rotator cuff tear arthropathy of left shoulder Procedures REFER TO PACC - PRE ANESTHESIA CONSULTATION CLINIC OFFICE/OUTPATIENT [facility] 60-[place] [address] [facility] [address] [place] [address] Referral IDStatusReasonStart DateExpiration DateVisits RequestedVisits [id number] Review PCP Requested Referral /[id number] / ProceduresReferred By ContactReferred To ContactREHAB AND SPORTS THERAP[facility] INS Diagnoses Closed displaced fracture of acromial process, unspecified laterality, sequela Status post reverse arthroplasty of left shoulder Procedures CONSULT TO MACHINE STEMMER OCC[facility]ATIONAL [facility]ERAPY [facility] [place] [address] [facility] [address] [address] [facility] [address] [place] [address] Referral IDStatusErnieSandy DateExpiration DateVisits RequestedVisits [id number] Review Auto-Generated Referral / Additional Source Comments INFORMATION SOURCE (unrecogn ized section and content) DATE CREATED AUTHOR 11/14/2018 [facility] DATE CREATED AUTHOR AUTHOR'S ORGANIZ ATION 05/19/2019 [facility] DATE CREATED AUTHOR AUTHOR'S ORGANIZ ATION 05/24/2022 [facility] DATE CREATED AUTHOR AUTHOR'S ORGANIZ ATION 02/09/2023 [facility] DATE CREATED AUTHOR AUTHOR'S ORGANIZ ATION 02/12/2024 [facility] DATE CREATED AUTHOR AUTHOR'S ORGANIZ ATION 04/28/2024 [facility] DATE CREATED AUTHOR AUTHOR'S ORGANIZ ATION 07/25/2024 [facility] DATE CREATED AUTHOR AUTHOR'S ORGANIZ ATION 06/07/2025 [facility] Reason for Visit (unrecogniz ed section and content) ReasonCommentsOT Progress NoteSpecialtyDiagnoses / ProceduresReferred By Contact Referred To Contact Diagnoses 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, 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, left Procedures CONSULT TO MACHINE STEMMER Wolfgang Chou PA-C [address] [place] [address] [facility] [address] [place] [address] Referral IDStatusReasonStart DateExpiration DateVisits RequestedVisits [id number]/1/202412/31/[id number]nk TherapyReasonCommentsDizzinessHypertensionReasonCommentsNewReasonCommentsFollow UpReasonCommentsPost OpFollow UpReasonCommentsFollow Up ForLeft shoulder pain ReasonCommentsRadio Gen I25GuwfkyoxyZaiynkucl / ProceduresReferred By Contact Referred To ContactXR IMAGING Diagnoses S/P reverse total shoulder arthroplasty, left Procedures XR SHOULDER GENERAL 3V OR MORE AP/TRUE AP/OTHER LEFT RADEX SHOULDER COMPLETE MINIMUM 2 VIEWS Wolfgang Chou PA-C [address] [place] [address] X[facility] Imaging [place] [address] Referral IDStatusReasonStart DateExpiration DateVisits RequestedVisits [id number] Auto-Generated Referral /[id number] pain Little Sibley RN - 04/06/2019 12:11 PM Little Leo RN - 04/06/2019 11:57 AM Little Leo RN - 04/06/2019 11:52 AM BALDEMARTHyShell banda MD - 04/06/2019 11:35 AM EDT ED [...] Associated Order(s): EKG 12-lead ED PROVIDER NOTE [facility] EM[facility]ENC[facility] NAME: Qing Fischer AGE: 73 y.o. : 1945 VISIT DATE: 04/06/2019 CSN: [id number] PCP: Nona Mcknight MD Chief Complaint Patient presents with Dizziness Hypertension She did not feel right at 7:30 AM soon after she got up this morning. She felt dizzy. Her mouth wasdry. She had a little numbness around her [...] file Gets together: Not on file Attends denominational service: Not on file Active member of [...] to person, place, and time. She appears well- nourished. She appearsdistressed. HENT: Mouth/Throat: Oropharynx is clear and moist. [...] 1. Nona Mcknight MD. Specialty: Family Medicine [address] [place] [address] Contact information for after-discharge care Follow-up information has not been specified. New Prescriptions azithromycin (ZITHROMAX) 250 MG tablet Two at first, then one daily . Shell Hawkins MD 04/06/19 1208 * Little Sibley RN - 04/06/2019 11:12 AM EDT Lab is at the bedside to draw labs at this time. * Little Sibley RN - 04/06/2019 10:[address] Hawkins is at the bedside to evaluate this patient. * Little Sibley RN - 04/06/2019 10:44 AM EDT This patient states that she woke up [...] blood pressure and it was 192/100 and shejust did not feel right. States that she took two Ibuprofen tablets at 1000. States that she is currently here in [facility] for the past four days. documented in this encounter Source Comments (unrecognize d section and content) In the event this informatio n is protected by the Federal Confidentiality of Alcohol and Drug Abuse Patient Records regulations: The Federal rules restrict any use of the information to criminally investigate or prosecute any alcohol or drug abuse patient.[facility] HospitalIn the event this information is protected by the Federal Confidentiality of Alcohol and Drug Abuse Patient Records regulations: The Federal rules restrict any use of the information to criminally investigate or prosecute any alcohol or drug abuse patient.[facility] HospitalIn the event this information is protected by the Federal Confidentiality of Alcohol and Drug Abuse Patient Records regulations: The Federal rules restrict any use of the information to criminally investigate or prosecute any alcohol or drug abuse patient.[facility] HospitalIn the event this information is protected by the Federal Confidentiality of Alcohol and Drug Abuse Patient Records regulations: The Federal rules restrict any use of the information to criminally investigate or prosecute any alcohol or drug abuse patient.[facility] HospitalIn the event this information is protected by the Federal Confidentiality of Alcohol and Drug Abuse Patient Records regulations: The Federal rules restrict any use of the information to criminally investigate or prosecute any alcohol or drug abuse patient.[facility] HospitalIn the event this information is protected by the Federal Confidentiality of Alcohol and Drug Abuse Patient Records regulations: The Federal rules restrict any use of the information to criminally investigate or prosecute any alcohol or drug abuse patient.[facility] HospitalIn the event this information is protected by the Federal Confidentiality of Alcohol and Drug Abuse Patient Records regulations: The Federal rules restrict any use of the information to criminally investigate or prosecute any alcohol or drug abuse patient.[facility] HospitalIn the event this information is protected by the Federal Confidentiality of Alcohol and Drug Abuse Patient Records regulations: The Federal rules restrict any use of the information to criminally investigate or prosecute any alcohol or drug abuse patient.[facility] HospitalIn the event this information is protected by the Federal Confidentiality of Alcohol and Drug Abuse Patient Records regulations: The Federal rules restrict any use of the information to criminally investigate or prosecute any alcohol or drug abuse patient.[facility] HospitalIn the event this information is protected by the Federal Confidentiality of Alcohol and Drug Abuse Patient Records regulations: The Federal rules restrict any use of the information to criminally investigate or prosecute any alcohol or drug abuse patient.[facility] HospitalIn the event this information is protected by the Federal Confidentiality of Alcohol and Drug Abuse Patient Records regulations: The Federal rules restrict any use of the information to criminally investigate or prosecute any alcohol or drug abuse patient.[facility] HospitalIn the event this information is protected by the Federal Confidentiality of Alcohol and Drug Abuse Patient Records regulations: The Federal rules restrict any use of the information to criminally investigate or prosecute any alcohol or drug abuse patient.[facility] HospitalIn the event this information is protected by the Federal Confidentiality of Alcohol and Drug Abuse Patient Records regulations: The Federal rules restrict any use of the information to criminally investigate or prosecute any alcohol or drug abuse patient.[facility] HospitalIn the event this information is protected by the Federal Confidentiality of Alcohol and Drug Abuse Patient Records regulations: The Federal rules restrict any use of the information to criminally investigate or prosecute any alcohol or drug abuse patient.[facility] HospitalIn the event this information is protected by the Federal Confidentiality of Alcohol and Drug Abuse Patient Records regulations: The Federal rules restrict any use of the information to criminally investigate or prosecute any alcohol or drug abuse patient.[facility] HospitalIn the event this information is protected by the Federal Confidentiality of Alcohol and Drug Abuse Patient Records regulations: The Federal rules restrict any use of the information to criminally investigate or prosecute any alcohol or drug abuse patient.[facility] HospitalIn the event this information is protected by the Federal Confidentiality of Alcohol and Drug Abuse Patient Records regulations: The Federal rules restrict any use of the information to criminally investigate or prosecute any alcohol or drug abuse patient.[facility] Care Teams (unrecognized sec tion and content) Team MemberRelationshipSpecialtyStart DateEnd Nona Mcknight MD [address] [place] [address] PCP - General12/11/07Team MemberRelationshipSpecialtyStart DateEnd Date Nona Mcknight MD [address] [place] [address] PCP - General12/11/07Team MemberRelationshipSpecialtyStart DateEnd Date Nona Mcknight MD [address] [place] [address] PCP - General3/12/05Team MemberRelationshipSpecialtyStart DateEnd Date Nona Mcknight MD [address] [place] [facility] [address] PCP - General3Team MemberRelationshipSpecialtyStart DateEnd Date Nona Mcknight MD [address] [place] [facility] [address] PCP - General3Team MemberRelationshipSpecialtyStart DateEnd Date Nona Mcknight MD [address] [place] [facility] [address] PCP - General3Team MemberRelationshipSpecialtyStart DateEnd Date Nona Mcknight MD [address] [place] [facility] [address] PCP - General3Team MemberRelationshipSpecialtyStart DateEnd Date Nona Mcknight MD [address] [facility] [address] PCP - General3Team MemberRelationshipSpecialtyStart DateEnd Date Nona Mcknight MD [address] [facility] [address] PCP - General3/12/05Team MemberRelationshipSpecialtyStart DateEnd Date Nona Mcknight MD [address] [facility] [address] PCP - General3/12/05Team MemberRelationshipSpecialtyStart DateEnd Date Nona Mcknight MD [address] [place] [address] PCP - General12/11/07Team MemberRelationshipSpecialtyStart DateEnd Date Nona Mcknight MD [address] [place] [address] PCP - General12/11/07Te MemberRelationshipSpecialtyStart DateEnd Date Nona Mcknight MD [address] [place] [address] PCP - General12/11/07Te MemberRelationshipSpecialtyStart DateEnd Date Nona Mcknight MD [address] [place] [address] PCP - General12/11/07Te MemberRelationshipSpecialtyStart DateEnd Date Nona Mcknight MD [address] [place] [address] PCP - General12/11/07 Team Status: Inactive Member Role Status Dates [...] BE BASED ON THE PRIMARY CLINICAL RECORDS. [facility] [employer] [facility] provides no warranty or guarantee of the accuracy or completeness of information in this document.
== END 2025-07-16 14:48 | disposition home or self-care (01) ==
LOC: LAB 14:47
PROVIDERS: PCP Family Medicine; Visit Provider Family Medicine
DX: E78.00 Pure hypercholesterolemia, unspecified (principal); Z12.11 Encounter for screening for malignant neoplasm of colon; R53.83 Other fatigue; E61.1 Iron deficiency; E11.9 Type 2 diabetes mellitus without complications
CPT/HCPCS: G0328